=== PATIENT | female | born 1965 | race Caucasian/White ===

== ENCOUNTER → 2017-06-07 | Outpatient (CLI) | payer MEDICARE, MEDICAID, SELFPAY | PROVIDERS: Family Provider Nurse Practitioner Family; Visit Provider Nurse Practitioner Family | DX: N39.0 Urinary tract infection, site not specified (principal); R10.9 Unspecified abdominal pain; Z87.442 Personal history of urinary calculi | CPT/HCPCS: 74020 ==

== ENCOUNTER → 2017-09-18 13:04 | Outpatient (CLI) | payer MEDICARE, MEDICAID, SELFPAY ==
[2017-09-18 13:25] LABS: Basophils # 0.1 K/mm3 (0-0.2); Basophils % 1.3 % (0.1-2.0); Eosinophils # 0.2 K/mm3 (0.0-0.4); Eosinophils % 3.6 % (0.1-12.0); Hematocrit 37.9 % (37.0-47.0); Hemoglobin 12.5 g/dL (12.2-16.2); Lymphocytes # 2.4 K/mm3 (0.7-4.5); Lymphocytes % 38.1 K/mm3 (10-50); Mean Corpuscular Hemoglobin 30.4 pg (27.0-31.2); Mean Corpuscular Volume 92.3 fl (81-99); Mean Platelet Volume 7.9 fl (7.4-10.4); Monocytes # 0.4 K/mm3 (0.1-1.0); Monocytes % 5.9 % (1.7-9.3); Neutrophils # 3.2 K/mm3 (1.8-7.8); Neutrophils % 51.1 % (37.0-80.0); Platelet Count 245 K/mm3 (142-424); Red Cell Distribution Width 13.1 % (11.5-17.5); White Blood Count 6.2 K/mm3 (4.8-10.8)
[2017-09-18 13:35] LABS: Hemoglobin A1C 7.8 % (0.0-7.0)
[2017-09-18 13:37] LABS: Alanine Aminotransferase 38 U/L (12-78); Albumin Level 3.7 gm/dL (3.4-5.0); Albumin/Globulin Ratio 1.1 (1.1-1.8); Alkaline Phosphatase 122 U/L (46-116); Anion Gap 11.5 mEq/L (5-15); Aspartate Amino Transferase 32 U/L (15-37); Bilirubin,Total 0.2 mg/dL (0.2-1.0); Blood Urea Nitrogen 11 mg/dL (7-18); Calcium 9.6 mg/dL (8.5-10.1); Carbon Dioxide 29 mmol/L (21.0-32.0); Chloride 101 mmol/L (98-107); Creatinine,Serum 0.94 mg/dL (0.55-1.02); Estimated Glomerular Filt Rate 62 ml/min (>60); GFR (African American) 75 ML/MIN (>60); Globulin 3.4 gm/dl (1.3-3.2); Potassium 3.5 mmoL/L (3.5-5.1); Sodium 138 mmol/L (136-145); Total Protein,Serum 7.1 gm/dL (6.4-8.2)
[2017-09-18 13:40] LABS: Glucose 414 mg/dL (74-106)
[2017-09-18 15:33] LABS: Chol/HDL Ratio 7.1 (1-3.5); Cholesterol 164 mg/dL (140-200); Free T4 (Free Thyroxine) 1.16 ng/dl (0.76-1.46); HDL Cholesterol 23 mg/dL (29-89); LDL Cholesterol 79 mg/dL (0-130); Triglycerides 312 mg/dL (30-200); VLDL Cholesterol 62 mg/dL (0-40)
[2017-09-19 09:11] LABS: Vitamin D 25 Hydroxy 29.5 ng/mL (30.0-100.0)
[2017-09-20 06:39] LABS: Vitamin B12 684 pg/mL (232-1245)
== END ==
PROVIDERS: Nurse Practitioner Family; PCP Internal Medicine Adolescent Medicine; Visit Provider Internal Medicine Adolescent Medicine
DX: E11.9 Type 2 diabetes mellitus without complications (principal); E03.9 Hypothyroidism, unspecified; I10 Essential (primary) hypertension; R53.83 Other fatigue
CPT/HCPCS: 36415; 80053; 80061; 82607; 82652; 83036; 84439; 84443; 85025

== ENCOUNTER → 2017-10-18 11:43 | Outpatient (CLI) | payer MEDICARE, MEDICAID, SELFPAY ==
--- NOTE | 2017-10-18 11:47 | CA_ITS ---
PROCEDURE: 2-D M-mode and color Doppler study INDICATIONS FOR THE TEST: Chest pain+ COPD+ Heart Murmur+ Tobacco Smoking+ Palpitations+ Fatigue Syncope Edema+ Hypertension+Diabetes Mellitus+ Rheumatic Fever SOB+SZYMANSKI+Obesity Hyperlipidemia+ Family History HD+ Additional History dizziness PATIENT INFORMATION HEIGHT: 60 WEIGHT: 140 GENDER: Female B/P: 124/54 2-D/M-MODE INTERPRETATION: 2-D MEASUREMENTS OBSERVED VALUES IN CMS Right Ventricular Dimension (RVDd) 2.4 Interventricular Septum (Thickness)(IVsd) 0.9 Left Ventricular Internal Dimensions(LVIDd) 4.5 Left Ventricular Posterior Wall (Thickness)(LVPWd) 0.8 Aortic Root 2.6 Aortic Cusp Separation 2.0 Left Atrial Dimensions (LAD) 3.1 2D 1. Left atrium is mildly enlarged, left ventricle is normal size, mild concentric left ventricular hypertrophy, visually estimated ejection fraction 55% with no obvious regional wall motion abnormality. 2. The right atrium and right ventricle are normal size and contractility 3. The aortic valve is thickened and calcified leaflet continue to display mobility. 4. The mitral and tricuspid valve leaflets are minimally thickened. 5. The pulmonic valve is poorly visualized. 6. No significant pericardial effusion noted. DOPPLER INTERROGATION: Doppler interrogation of the aortic, mitral and tricuspid valvular presence of mild mitral and tricuspid regurgitation, tricuspid and jet velocity insufficient for calculation of the right ventricular systolic pressure, grade 1 diastolic dysfunction seen without tissue Doppler evidence of raised left atrial pressure. CONCLUSION: 1. Mildly enlarged left atrium, normal left ventricular size, mild concentric left ventricular hypertrophy, visually estimated ejection fraction 55% with no obvious regional wall motion abnormality, grade 1 diastolic dysfunction seen without tissue Doppler evidence of raised left atrial pressure. 2. Mild mitral and tricuspid regurgitation 3. No significant pericardial effusion noted.
--- NOTE | 2017-10-18 11:47 | NM_ITS ---
CARDIOLITE SPECT MYOCARDIAL PERFUSION SCAN, REST AND STRESS: EXERCISE STRESS [facility] REVIEW QGS EF AND WALL MOTION EVALUATION: QPS - PERFUSION EVALUATION HISTORY: CAD, DM, Tobacco use, Chest pain, SOB, Palpitations, Fatigue DOSE: 9.75 mCi technetium 99m mibi intravenously at rest followed by 30.3 mCi technetium 99m mibi following the intravenous ministration of 0.4 mg of Lexiscan. Resting blood pressure is 136/63. Stress blood pressure 149/77. FINDINGS: Ejection fraction is calculated to be 65%. Stress images reveal decreased activity in a portion the anterior wall wall rest images uniform myocardial activity. Gated images calculated ejection fraction is 65% with normal wall motion IMPRESSION: Reversible ischemia in a portion the anterior wall. Normal ejection fraction and normal wall motion. Because the anterior wall involvement this is high risk abnormal Myoview
--- NOTE | 2017-10-18 14:36 | HMH.ITSHM ---
metoprolol levothyroxine fenotidine buspirone adapalene bisacodyl
== END ==
PROVIDERS: Family Provider Nurse Practitioner Family; PCP Internal Medicine Adolescent Medicine; Visit Provider Internal Medicine
DX: R06.09 Other forms of dyspnea (principal); R00.2 Palpitations
CPT/HCPCS: 78452; 93017; 93306; A9502; J2785

== ENCOUNTER 2017-11-25 19:23 | Observation (INO) ==
[2017-11-25 19:49] LABS: Basophils # 0.1 K/mm3 (0-0.2); Basophils % 1.2 % (0.1-2.0); Eosinophils # 0.5 K/mm3 (0.0-0.4); Hematocrit 44.5 % (37.0-47.0); Hemoglobin 14.9 g/dL (12.2-16.2); Lymphocytes # 3.7 K/mm3 (0.7-4.5); Mean Corpuscular HGB Conc 33.4 g/dL (31.8-35.4); Mean Corpuscular Hemoglobin 29.6 pg (27.0-31.2); Mean Corpuscular Volume 88.7 fl (81-99); Mean Platelet Volume 7.2 fl (7.4-10.4); Monocytes # 0.4 K/mm3 (0.1-1.0); Monocytes % 4.2 % (1.7-9.3); Neutrophils # 4.4 K/mm3 (1.8-7.8); Neutrophils % 48.6 % (37.0-80.0); Platelet Count 327 K/mm3 (142-424); Red Blood Count 5.02 M/mm3 (4.20-5.40); Red Cell Distribution Width 12.7 % (11.5-17.5); White Blood Count 9.1 K/mm3 (4.8-10.8)
[2017-11-25 20:01] LABS: Anion Gap 20.5 mEq/L (5-15); Blood Urea Nitrogen 29 mg/dL (7-18); Calcium 10.5 mg/dL (8.5-10.1); Carbon Dioxide 25 mmol/L (21.0-32.0); Chloride 94 mmol/L (98-107); Glucose 152 mg/dL (74-106); Potassium 3.5 mmoL/L (3.5-5.1); Sodium 136 mmol/L (136-145)
--- NOTE | 2017-11-25 20:56 | Emergency Department Note ---
ED Disposition Clinical Impression: Angina at rest, Renal insufficiency Disposition: Admitted as Observation Condition on Discharge: Good - Critical Care Critical Care Time: No Attestation: On 11/25/17, the high probability of a clinically significant, sudden or life threatening deterioration of the following system(s) required my full and direct attention, intervention and personal management. The time I documented below is in addition to time spent performing reported procedures but includes the following listed in this critical care notation. Medical Decision Making - Medical Records Medical records reviewed: Yes: I reviewed the patient's medical records. - Rob Inquiry Pt receiving controlled substance: No Vital Signs: 11/25/17 19:24 Temperature 98.0 F Temperature Source Oral Pulse Rate [Right Radial] 86 Respiratory Rate 20 Blood Pressure [Right Arm] 167/75 Blood Pressure Mean [Right Arm] 105 02 Sat by Pulse Oximetry 98 - Lab Data Lab results reviewed: Yes: I reviewed the patient's lab results. Lab Results 11/25/17 19:37: WBC 9.1, RBC 5.02, Hgb 14.9, Hct 44.5, MCV 88.7, MCH 29.6, MCHC 33.4, RDW 12.7, Plt Count 327, MPV 7.2 L, Neut % (Auto) 48.6, Lymph % (Auto) 41.0, [place] % (Auto) 4.2, Eos % (Auto) 5.0, Baso % (Auto) 1.2, Neut # (Auto) 4.4 , Lymph # (Auto) 3.7, [place] # (Auto) 0.4, Eos # (Auto) 0.5 H, Baso # (Auto) 0.1 11/25/17 19:37: Sodium 136, Potassium 3.5, Chloride 94 L, Carbon Dioxide 25, Anion Gap 20.5 H, BUN 29 H, Creatinine 2.25 H, Estimated Creat Clear 29, Estimated GFR 23 L, Est GFR ( Amer) 28 L, Glucose 152 H, Calcium 10.5 H, Troponin I < 0.02 Result diagrams: 11/25/17 19:37 11/25/17 19:37 Orders (Tests/Meds): ORDERS Category Date Time Status XR chest 2V Stat Exams 11/25/17 19:35 Taken ECG Request by /Nse Stat Y 11/25/17 19:35 Ordered - Radiology Data #1 Image(s): Chest Image Reviewed: Yes I reviewed the patient's radiology image Preliminary Findings: Normal/NAD - ECG Data Tracing #1 I reviewed this ECG and interpreted as documented below: Normal Sinus Rhythm: Yes Ischemic changes: non-specific ST-T wave changes ECG compared to prior tracings: there are no significant changes - Physician Consults Physician Consulted: gilberto Reason -: Pt condition Chest Pain HPI - General Chief Complaint: Chest Pain Stated Complaint: chest pain Time Seen by Provider: 11/25/17 20:00 Mode of Arrival: Family Vehicle Source of Information: Patient, Relative, Medical Record Limitations: No Limitations Description of Symptoms (Recalled from ER Triage Doc. by RN): pt presents with c /o chest pain. pt states the pain begins upon exertion. pt states she had stents on 11/13/[address] macias. pt states she she has been having nausea/ weakness/diaphoresis. pt has a neurotransmitter in her back that helps with incontinence. - History of Present Illness HPI narrative: pt with hx of chest pain over the last 2 days - pt with recent card stents - no pain at this time - MD complaint: chest pain indicative of cardiac Onset (ago): day(s) Duration: now resolved Activity at onset: during rest Pain location: substernal Severity: moderate Quality: tightness Context: other (recent stents ) Treatments prior to or on arrival for Cardiac Chest Pain: aspirin - NEERAJ Score Non-Stemi Age of patient: Less than 65 yrs Number of risk factors for CAD: Presence of 3 or more Prior coronary artery stenosis(seen in coronary angiography): 50% or more ST-Segment deviation on ECG (more than 1 min): Absent Prior aspirin intake: ASA intake in the last 7 days Severe anginal chest pain: Two or more episodes in last 24 hours Elevated cardiac markers(CK-MB or troponin): Absent Non-Stemi Risk Score: 4 - Related Data Prior Cardiac Testing/Procedures: Stenting On Oral Contraceptives: No Home Medications Medication Instructions Recorded Confirmed adapalene 0.1 % topical gel 1 applic TOPICAL QHS 10/16/17 11/25/17 albuterol sulfate HFA 90 2 puff INHALATION Q4-6H PRN 10/16/17 11/25/17 mcg/actuation aerosol inhaler alprazolam 1 mg tablet 1 mg PO TID PRN tab 10/16/17 11/25/17 bisacodyl 5 mg tablet 10 mg PO QHS PRN 10/16/17 11/25/17 diltiazem CD 120 mg 120 mg PO DAILY cap 10/16/17 11/25/17 capsule,extended release 24 hr esomeprazole magnesium 20 mg 20 mg PO DAILY cap 10/16/17 11/25/17 capsule,delayed release famotidine 20 mg tablet 20 mg PO BID PRN 10/16/17 11/25/17 fenofibrate micronized 134 mg 134 mg PO DAILY cap 10/16/17 11/25/17 capsule fluticasone 100 mcg-salmeterol 50 1 puff INHALATION BID 10/16/17 11/25/17 mcg/dose blistr powdr for inhalation lamotrigine 100 mg tablet 100 mg PO BID 10/16/17 11/25/17 levothyroxine 125 mcg tablet 125 mcg PO DAILY tab 10/16/17 11/25/17 metformin 1,000 mg tablet 1,000 mg PO BID 10/16/17 11/25/17 nystatin 100,000 unit/gram topical 1 applic TOPICAL TID 10/16/17 11/25/17 ointment ondansetron HCl 4 mg tablet 4 mg PO Q6H PRN 10/16/17 11/25/17 potassium chloride ER 20 mEq 20 meq PO DAILY tab 10/16/17 11/25/17 tablet,extended release rosuvastatin 10 mg tablet 10 mg PO QHS tab 10/16/17 11/25/17 venlafaxine ER 150 mg 300 mg PO DAILY cap 10/16/17 11/25/17 capsule,extended release 24 hr buspirone 10 mg tablet 10 mg PO BID 10/17/17 11/25/17 cholecalciferol (vitamin D3) 2,000 2,000 unit PO DAILY cap 10/17/17 11/25/17 unit capsule cyanocobalamin (vit B-12) ER 1,000 1,000 mcg PO DAILY tab 10/17/17 11/25/17 mcg tablet,extended release aspirin 81 mg tablet,delayed 81 mg PO DAILY tab 11/21/17 11/25/17 release furosemide 20 mg tablet 20 mg PO DAILY tab 11/21/17 11/25/17 ticagrelor 90 mg tablet 90 mg PO BID 11/21/17 11/25/17 Bisoprolol Fumarate [Zebeta 5mg 5 mg PO DAILY 11/25/17 11/25/17 tablet] Furosemide [Lasix 20mg tab] 20 mg PO DAILY 11/25/17 11/25/17 Ranolazine [Ranexa 500mg ER tablet] 500 mg PO Q12H 11/25/17 11/25/17 Ticagrelor [Brilinta 90mg Tablet] 90 mg PO DAILY 11/25/17 11/25/17 Allergies Allergy/AdvReac Type Severity Reaction Status Date / Time aripiprazole [From ABILIFY] Allergy Unknown Verified 11/25/17 19:31 citalopram [From CELEXA] Allergy Unknown UNKNOWN Verified 11/25/17 19:31 hydrocodone [From LORTAB] Allergy Unknown Verified 11/25/17 19:31 olanzapine [From ZYPREXA] Allergy Unknown Verified 11/25/17 19:31 quetiapine [From SEROQUEL] Allergy Unknown Verified 11/25/17 19:31 Sulfa (Sulfonamide Allergy Unknown Verified 11/25/17 19:31 Antibiotics) [SULFA (SULFONAMIDE ANTIBIOTICS)] [facility] History I have reviewed the patient's past medical history: Yes Medical History: Reports:: Chronic Obstructive Pulmonary Disease (COPD), Depression, Diabetes Mellitus Type 2, Kidney Stones, Palpitations, Renal Disease Denies:: Cancer, Internal Pacemaker, MRSA, Seizures Other Medical History: Reports: Hypothyroidism Other Surgeries: Yes: Colonoscopy. No: Pacemaker Amputation: No Fractures: No - Social History Smoking Status: Current every day smoker Tobacco Type: cigarettes Alcohol Intake: never Alcohol Intake Frequency:: other Substance Use Type: denies use Occupational Status: employed Housing: apartment Household Members: none - Psychiatric History Expresses thoughts of harming self/others: None Suicide Plan Description: No Plan Pschychiatric History:: Reports:: Depression Family Hx:: Coronary Artery Disease, Heart Attack ROS Obtained: Yes All systems reviewed & no additional complaints - Constitutional Constitutional: Denies fever(s) - Eyes Eyes: Denies change in vision - ENT Ears, Nose, Mouth, and Throat: Denies sore throat - Cardiovascular Cardiovascular: Reports chest pain - Respiratory Respiratory: No chest congestion, No cough - Gastrointestinal Gastrointestingal: Denies: abdominal pain - Genitourinary Female Genitourinary: Denies hematuria - Musculoskeletal Musculoskeletal: Denies joint pain - Integumentary/Breasts Skin/Breast: Denies rash - Neurologic Neurologic: Denies seizure-like activity Physical Exam - General General appearance: alert - Head Head exam: normocephalic - Eye Eye exam: Present: PERRL, EOMI - ENT ENT exam: Present: mucous membranes dry - Neck Neck exam: Present: trachea midline - Respiratory Respiratory exam: Present: normal lung sounds bilaterally. Absent: respiratory distress - Cardiovascular Cardiovascular exam: Present: regular rate, systolic murmur - Abdominal Exam Abdominal exam: Present: soft - Extremities Exam Extremities exam: Absent: calf tenderness - Neurological Exam Neurological exam: Present: oriented X3, CN II-XII intact - Psychiatric Psychiatric exam: Present: normal affect - Skin Skin exam: Absent: rash
[2017-11-26 06:42] LABS: Basophils # 0.1 K/mm3 (0-0.2); Eosinophils # 0.4 K/mm3 (0.0-0.4); Lymphocytes # 3.3 K/mm3 (0.7-4.5)
[2017-11-26 06:54] LABS: Basophils % 1.3 % (0.1-2.0); Eosinophils % 5.5 % (0.1-12.0); Hematocrit 39.2 % (37.0-47.0); Lymphocytes % 51.5 K/mm3 (10-50); Mean Corpuscular Hemoglobin 29.5 pg (27.0-31.2); Mean Corpuscular Volume 89.1 fl (81-99); Mean Platelet Volume 7.2 fl (7.4-10.4); Monocytes # 0.3 K/mm3 (0.1-1.0); Monocytes % 4.9 % (1.7-9.3); Neutrophils # 2.3 K/mm3 (1.8-7.8); Neutrophils % 36.9 % (37.0-80.0); Platelet Count 250 K/mm3 (142-424); Red Cell Distribution Width 12.8 % (11.5-17.5); White Blood Count 6.4 K/mm3 (4.8-10.8)
[2017-11-26 07:12] LABS: Anion Gap 14.2 mEq/L (5-15); Potassium 3.2 mmoL/L (3.5-5.1)
--- NOTE | 2017-11-26 07:35 | Pharmacy Consult Notes ---
[facility] Pharmacy VTE Monitoring - Patient Demographics Admission date: 11/25/17 Report Date: 11/26/17 Time: 07:34 Allergies/Adverse Reactions: Patient Allergies aripiprazole [From ABILIFY] Allergy (Unknown, Verified 11/25/17 19:31) citalopram [From CELEXA] Allergy (Unknown, Verified 11/25/17 19:31) UNKNOWN hydrocodone [From LORTAB] Allergy (Unknown, Verified 11/25/17 19:31) olanzapine [From ZYPREXA] Allergy (Unknown, Verified 11/25/17 19:31) quetiapine [From SEROQUEL] Allergy (Unknown, Verified 11/25/17 19:31) Sulfa (Sulfonamide Antibiotics) [SULFA (SULFONAMIDE ANTIBIOTICS)] Allergy ( Unknown, Verified 11/25/17 19:31) Height: 1.52 m Weight: 63.503 kg Patient Problems: Current Active Problems Angina at rest (Acute) Renal insufficiency (Acute) - VTE Risk Labs: VTE Related Lab Results Hgb 13.0 g/dL (12.2-16.2) D 11/26/17 06:22 Hct 39.2 % (37.0-47.0) 11/26/17 06:22 Plt Count 250 K/mm3 (142-424) 11/26/17 06:22 BUN 32 mg/dL (7-18) H 11/26/17 06:22 Creatinine 1.93 mg/dL (0.55-1.02) H 11/26/17 06:22 Estimated Creat Clear 34 mL/min (0-300) 11/26/17 06:22 Was VTE Risk Assessment Performed: Yes VTE Score: 3 VTE Risk Level: Low Risk - Prophylaxis VTE Prophylaxis Ordered?: Yes Types of VTE Prophylaxis: TEDS Knee High, Pharmacological Location of Applied Device: Bilateral Lower Extremeties Pharmacologic Type: Other (BRILINTA) - VTE Diagnosis Confirmed Treatment or plan recommended: Continue Current Treatment
[2017-11-26 07:39] LABS: Eosinophils % 4 % (0-3); Lymphocytes % 43 % (10-50); Monocytes % 7 % (2-9); Neutrophils % 39 % (42-76); RBC Morphology Normal; Total Cells Counted 100
--- NOTE | 2017-11-26 08:14 | Consult Report ---
History of Present Illness Consult date: 11/26/17 Requesting physician: Avelino Salas Consult reason: chest pain Chief complaint: Chest pain, weakness and fatigue Additional Medical History:: 1. Coronary artery disease A. High risk abnormal Myoview with anterior ischemia, 10/2017 B. Drug-eluting stent to LAD, proximal and mid in a noncontiguous fashion, 11/13/2017 with residual moderate RCA disease. 2. Diabetes mellitus, treated for 2 years 3. Tobacco use, continued 4. Hypertension 5. Hyperlipidemia, on statin and fibrate 6. History of colostomy placed for diverticulitis History of present illness: 52-year-old white female with tobacco use, diabetes mellitus and recent coronary artery stenting to the LAD presented to the emergency department for recurrent episodes of chest pain lasting up to an hour and a half. Patient relates these symptoms are the same as those prior to her recent stenting and are present both at rest and with activity. Also associated with weakness and fatigue with some nausea and diaphoresis. Patient was admitted through the emergency department with cardiac enzymes returning normal overnight. EKG shows sinus rhythm with diffuse ST-T abnormalities in the inferior and anterolateral leads suggestive of ischemia. Cardiology consulted for evaluation and recommendations. [facility] History Medical History: Reports:: Chronic Obstructive Pulmonary Disease (COPD), Depression, Diabetes Mellitus Type 2, Kidney Stones, Palpitations, Renal Disease Denies:: Cancer, Internal Pacemaker, MRSA, Seizures Other Medical History: Reports: Hypothyroidism Other Surgeries: Yes: Colonoscopy. No: Pacemaker Amputation: No Fractures: No - *Social History Smoking Status: Current every day smoker Tobacco Type: cigarettes # Packs/Day (cigarettes): 1 Alcohol Intake: never Alcohol Intake Frequency:: other Substance Use Type: denies use Occupational Status: employed Housing: apartment Household Members: none - Psychiatric History Expresses thoughts of harming self/others: None Suicide Plan Description: No Plan Pschychiatric History:: Reports:: Depression *Family Hx:: Coronary Artery Disease, Heart Attack Meds Home Medications Medication Instructions Recorded Confirmed Type albuterol sulfate HFA 90 2 puff INHALATION Q4-6H PRN 10/16/17 11/25/17 History mcg/actuation aerosol inhaler alprazolam 1 mg tablet 1 mg PO TIDP PRN tab 10/16/17 11/26/17 History diltiazem CD 120 mg 120 mg PO DAILY cap 10/16/17 11/25/17 History capsule,extended release 24 hr esomeprazole magnesium 20 mg 20 mg PO DAILY cap 10/16/17 11/25/17 History capsule,delayed release famotidine 20 mg tablet 20 mg PO BID PRN 10/16/17 11/25/17 History fenofibrate micronized 134 mg 134 mg PO DAILY cap 10/16/17 11/25/17 History capsule fluticasone 100 mcg-salmeterol 50 1 puff INHALATION BID 10/16/17 11/25/17 History mcg/dose blistr powdr for inhalation lamotrigine 100 mg tablet 100 mg PO BID 10/16/17 11/25/17 History levothyroxine 125 mcg tablet 125 mcg PO DAILY tab 10/16/17 11/25/17 History metformin 1,000 mg tablet 1,000 mg PO BID 10/16/17 11/25/17 History ondansetron HCl 4 mg tablet 4 mg PO Q6H PRN 10/16/17 11/25/17 History potassium chloride ER 20 mEq 20 meq PO DAILY tab 10/16/17 11/25/17 History tablet,extended release rosuvastatin 10 mg tablet 10 mg PO QHS tab 10/16/17 11/25/17 History venlafaxine ER 150 mg 300 mg PO DAILY cap 10/16/17 11/25/17 History capsule,extended release 24 hr buspirone 10 mg tablet 10 mg PO BID 10/17/17 11/25/17 History cholecalciferol (vitamin D3) 2,000 2,000 unit PO DAILY cap 10/17/17 11/25/17 History unit capsule cyanocobalamin (vit B-12) ER 1,000 1,000 mcg PO DAILY tab 10/17/17 11/25/17 History mcg tablet,extended release aspirin 81 mg tablet,delayed 81 mg PO DAILY tab 11/21/17 11/25/17 History release ticagrelor 90 mg tablet 90 mg PO BID 11/21/17 11/25/17 History Bisoprolol Fumarate [Zebeta 5mg 5 mg PO DAILY 11/25/17 11/25/17 History tablet] Furosemide [Lasix 20mg tab] 20 mg PO DAILY 11/25/17 11/25/17 History Ranolazine [Ranexa 500mg ER tablet] 500 mg PO Q12H 11/25/17 11/25/17 History Ticagrelor [Brilinta 90mg Tablet] 90 mg PO DAILY 11/25/17 11/25/17 History Allergies Allergy/AdvReac Type Severity Reaction Status Date / Time aripiprazole [From ABILIFY] Allergy Unknown Verified 11/25/17 19:31 citalopram [From CELEXA] Allergy Unknown UNKNOWN Verified 11/25/17 19:31 hydrocodone [From LORTAB] Allergy Unknown Verified 11/25/17 19:31 olanzapine [From ZYPREXA] Allergy Unknown Verified 11/25/17 19:31 quetiapine [From SEROQUEL] Allergy Unknown Verified 11/25/17 19:31 Sulfa (Sulfonamide Allergy Unknown Verified 11/25/17 19:31 Antibiotics) [SULFA (SULFONAMIDE ANTIBIOTICS)] Review of Systems - *Cardiovascular Reports chest pain - *Respiratory Reports shortness of breath with activity - *Gastrointestinal Reports constipation, Denies abdominal pain - *Musculoskeletal Denies joint pain - *Neurologic Denies seizure-like activity Exam Vital signs and Labs for Last 24 Hours: Temp Pulse Resp BP Pulse Ox 98.1 F 74 20 113/68 95 11/26/17 07:30 11/26/17 07:30 11/26/17 07:30 11/26/17 07:30 11/26/17 07:30 Laboratory Results - last 24 hr 11/25/17 19:37: WBC 9.1, RBC 5.02, Hgb 14.9, Hct 44.5, MCV 88.7, MCH 29.6, MCHC 33.4, RDW 12.7, Plt Count 327, MPV 7.2 L, Neut % (Auto) 48.6, Lymph % (Auto) 41.0, [place] % (Auto) 4.2, Eos % (Auto) 5.0, Baso % (Auto) 1.2, Neut # (Auto) 4.4 , Lymph # (Auto) 3.7, [place] # (Auto) 0.4, Eos # (Auto) 0.5 H, Baso # (Auto) 0.1 11/25/17 19:37: Sodium 136, Potassium 3.5, Chloride 94 L, Carbon Dioxide 25, Anion Gap 20.5 H, BUN 29 H, Creatinine 2.25 H, Estimated Creat Clear 29, Estimated GFR 23 L, Est GFR ( Amer) 28 L, Glucose 152 H, Calcium 10.5 H, Troponin I < 0.02 11/25/17 21:39: Troponin I < 0.02 11/26/17 00:35: Troponin I < 0.02 11/26/17 03:35: Troponin I < 0.02 11/26/17 04:06: POC Glucose 192 H 11/26/17 05:12: POC Glucose 182 H 11/26/17 06:22: WBC 6.4 D, RBC 4.40, Hgb 13.0 D, Hct 39.2, MCV 89.1, MCH 29.5 , MCHC 33.0, RDW 12.8, Plt Count 250, MPV 7.2 L, Neut % (Auto) 36.9 L, Lymph % ( Auto) 51.5 H, [place] % (Auto) 4.9, Eos % (Auto) 5.5, Baso % (Auto) 1.3, Neut # ( Auto) 2.3, Lymph # (Auto) 3.3, [place] # (Auto) 0.3, Eos # (Auto) 0.4, Baso # (Auto ) 0.1, Total Counted 100, Neutrophils % (Manual) 39 L, Lymphocytes % (Manual) 43 , Atypical Lymphs % 7.0, Monocytes % (Manual) 7, Eosinophils % (Manual) 4 H, Platelet Estimate Normal, RBC Morphology Normal 11/26/17 06:22: Sodium 139, Potassium 3.2 L, Chloride 100, Carbon Dioxide 28, Anion Gap 14.2, BUN 32 H, Creatinine 1.93 H, Estimated Creat Clear 34, Estimated GFR 27 L, Est GFR ( Amer) 33 L, Glucose 181 H, Calcium 9.0 D I & O for Last 24 hours: Intake & Output 11/23/17 11/24/17 11/25/17 11/26/17 11:59 11:59 11:59 11:59 Intake Total 434 / 434 Balance 434 / 434 Weight 140 lb - *Routine Neck Exam Absent: JVD, carotid bruit - *Routine Respiratory Exam Present: CTA bilaterally - *Routine Cardiovascular Exam Present: RRR. Absent: murmur, gallop - *Routine Extremities Exam Absent: edema - *Routine Neurological Exam Present: alert, oriented X3, moving all extremities Assessment and Plan (1) Angina at rest Current visit: Yes Status: Acute Category: Medical Code(s): I20.8 - Other forms of angina pectoris (2) CAD (coronary artery disease) Current visit: Yes Status: Acute Category: Medical Code(s): I25.10 - Atherosclerotic heart disease of [place] coronary artery without angina pectoris (3) History of coronary artery stent placement Current visit: Yes Status: Acute Category: Surgical Code(s): Z95.5 - Presence of coronary angioplasty implant and graft (4) Hypertension Current visit: Yes Status: Acute Category: Medical Code(s): I10 - Essential (primary) hypertension (5) Diabetes mellitus Current visit: Yes Status: Acute Category: Medical Code(s): E11.9 - Type 2 diabetes mellitus without complications (6) Hypercholesteremia Current visit: No Status: Acute Category: Medical Code(s): E78.00 - Pure hypercholesterolemia, unspecified (7) Hypothyroidism Current visit: No Status: Acute Qualifiers: Hypothyroidism type: unspecified Qualified Code(s): E03.9 - Hypothyroidism , unspecified Category: Medical Code(s): E03.9 - Hypothyroidism, unspecified (8) Tobacco dependence syndrome Current visit: No Status: Acute Category: Medical Code(s): F17.200 - Nicotine dependence, unspecified, uncomplicated (9) Renal insufficiency Current visit: Yes Status: Acute Category: Medical Code(s): N28.9 - Disorder of kidney and ureter, unspecified - Assessment and plan all Dx Assessment and Plan for all problems:: 1. Angina pectoris class IV in a patient with known coronary artery disease and recent coronary artery stenting. She confirmed compliance of dual antiplatelet therapy. With known residual coronary disease of the right coronary artery, recommend repeating cardiac catheterization today with FFR to assess as the etiology for her continued chest pain. Also will re-evaluate the LAD stents. 2. Continue IV fluids due to acute renal insufficiency with creatinine of 1.9 this a.m. (Cr down from 2.2 yesterday) and GFR of 27. 3. Further recommendations to follow.
--- NOTE | 2017-11-26 08:29 | History & Physical Report ---
*Admission Date: 11/25/17 *Chief complaint: chest pain *History of present illness: 52-year-old white female with tobacco use, diabetes mellitus and recent coronary artery stenting to the LAD presented to the emergency department for recurrent episodes of chest pain lasting up to an hour and a half. Patient relates these symptoms are the same as those prior to her recent stenting and are present both at rest and with activity. Also associated with weakness and fatigue with some nausea and diaphoresis. Patient was admitted through the emergency department with cardiac enzymes returning normal overnight. EKG shows sinus rhythm with diffuse ST-T abnormalities in the inferior and anterolateral leads suggestive of ischemia. Cardiology consulted for evaluation and recommendations. Above per Cardiology FELICIT[facility] [place]. [facility] History I have reviewed the patient's past medical history: Yes Medical History: Reports:: Chronic Obstructive Pulmonary Disease (COPD), Depression, Diabetes Mellitus Type 2, Kidney Stones, Palpitations, Renal Disease Denies:: Cancer, Internal Pacemaker, MRSA, Seizures Other Medical History: Reports: Hypothyroidism Other Surgeries: Yes: Colonoscopy. No: Pacemaker Amputation: No Fractures: No - *Social History Smoking Status: Current every day smoker Tobacco Type: cigarettes # Packs/Day (cigarettes): 1 Alcohol Intake: never Alcohol Intake Frequency:: other Substance Use Type: denies use Occupational Status: employed Housing: apartment Household Members: none - Psychiatric History Expresses thoughts of harming self/others: None Suicide Plan Description: No Plan Pschychiatric History:: Reports:: Depression *Family Hx:: Coronary Artery Disease, Heart Attack Review of Systems - Review of Systems Review of systems:: pertinent systems reviewed and negative unless documented below - *Cardiovascular Reports chest pain, Reports shortness of breath - *Gastrointestinal Reports nausea, Reports vomiting - *Neurologic Denies seizure-like activity Meds Home Medications Medication Instructions Recorded Confirmed Type albuterol sulfate HFA 90 2 puff INHALATION Q4-6H PRN 10/16/17 11/25/17 History mcg/actuation aerosol inhaler alprazolam 1 mg tablet 1 mg PO TIDP PRN tab 10/16/17 11/26/17 History diltiazem CD 120 mg 120 mg PO DAILY cap 10/16/17 11/25/17 History capsule,extended release 24 hr esomeprazole magnesium 20 mg 20 mg PO DAILY cap 10/16/17 11/25/17 History capsule,delayed release famotidine 20 mg tablet 20 mg PO BID PRN 10/16/17 11/25/17 History fenofibrate micronized 134 mg 134 mg PO DAILY cap 10/16/17 11/25/17 History capsule fluticasone 100 mcg-salmeterol 50 1 puff INHALATION BID 10/16/17 11/25/17 History mcg/dose blistr powdr for inhalation lamotrigine 100 mg tablet 100 mg PO BID 10/16/17 11/25/17 History levothyroxine 125 mcg tablet 125 mcg PO DAILY tab 10/16/17 11/25/17 History metformin 1,000 mg tablet 1,000 mg PO BID 10/16/17 11/25/17 History ondansetron HCl 4 mg tablet 4 mg PO Q6H PRN 10/16/17 11/25/17 History potassium chloride ER 20 mEq 20 meq PO DAILY tab 10/16/17 11/25/17 History tablet,extended release rosuvastatin 10 mg tablet 10 mg PO QHS tab 10/16/17 11/25/17 History venlafaxine ER 150 mg 300 mg PO DAILY cap 10/16/17 11/25/17 History capsule,extended release 24 hr buspirone 10 mg tablet 10 mg PO BID 10/17/17 11/25/17 History cholecalciferol (vitamin D3) 2,000 2,000 unit PO DAILY cap 10/17/17 11/25/17 History unit capsule cyanocobalamin (vit B-12) ER 1,000 1,000 mcg PO DAILY tab 10/17/17 11/25/17 History mcg tablet,extended release aspirin 81 mg tablet,delayed 81 mg PO DAILY tab 11/21/17 11/25/17 History release ticagrelor 90 mg tablet 90 mg PO BID 11/21/17 11/25/17 History Bisoprolol Fumarate [Zebeta 5mg 5 mg PO DAILY 11/25/17 11/25/17 History tablet] Furosemide [Lasix 20mg tab] 20 mg PO DAILY 11/25/17 11/25/17 History Ranolazine [Ranexa 500mg ER tablet] 500 mg PO Q12H 11/25/17 11/25/17 History Ticagrelor [Brilinta 90mg Tablet] 90 mg PO DAILY 11/25/17 11/25/17 History Allergies Allergy/AdvReac Type Severity Reaction Status Date / Time aripiprazole [From ABILIFY] Allergy Unknown Verified 11/25/17 19:31 citalopram [From CELEXA] Allergy Unknown UNKNOWN Verified 11/25/17 19:31 hydrocodone [From LORTAB] Allergy Unknown Verified 11/25/17 19:31 olanzapine [From ZYPREXA] Allergy Unknown Verified 11/25/17 19:31 quetiapine [From SEROQUEL] Allergy Unknown Verified 11/25/17 19:31 Sulfa (Sulfonamide Allergy Unknown Verified 11/25/17 19:31 Antibiotics) [SULFA (SULFONAMIDE ANTIBIOTICS)] Exam Vital signs and Labs for Last 24 Hours: Temp Pulse Resp BP Pulse Ox 98.1 F 74 20 113/68 95 11/26/17 07:30 11/26/17 07:30 11/26/17 07:30 11/26/17 07:30 11/26/17 07:30 Laboratory Results - last 24 hr 11/25/17 19:37: WBC 9.1, RBC 5.02, Hgb 14.9, Hct 44.5, MCV 88.7, MCH 29.6, MCHC 33.4, RDW 12.7, Plt Count 327, MPV 7.2 L, Neut % (Auto) 48.6, Lymph % (Auto) 41.0, [place] % (Auto) 4.2, Eos % (Auto) 5.0, Baso % (Auto) 1.2, Neut # (Auto) 4.4 , Lymph # (Auto) 3.7, [place] # (Auto) 0.4, Eos # (Auto) 0.5 H, Baso # (Auto) 0.1 11/25/17 19:37: Sodium 136, Potassium 3.5, Chloride 94 L, Carbon Dioxide 25, Anion Gap 20.5 H, BUN 29 H, Creatinine 2.25 H, Estimated Creat Clear 29, Estimated GFR 23 L, Est GFR ( Amer) 28 L, Glucose 152 H, Calcium 10.5 H, Troponin I < 0.02 11/25/17 21:39: Troponin I < 0.02 11/26/17 00:35: Troponin I < 0.02 11/26/17 03:35: Troponin I < 0.02 11/26/17 04:06: POC Glucose 192 H 11/26/17 05:12: POC Glucose 182 H 11/26/17 06:22: WBC 6.4 D, RBC 4.40, Hgb 13.0 D, Hct 39.2, MCV 89.1, MCH 29.5 , MCHC 33.0, RDW 12.8, Plt Count 250, MPV 7.2 L, Neut % (Auto) 36.9 L, Lymph % ( Auto) 51.5 H, [place] % (Auto) 4.9, Eos % (Auto) 5.5, Baso % (Auto) 1.3, Neut # ( Auto) 2.3, Lymph # (Auto) 3.3, [place] # (Auto) 0.3, Eos # (Auto) 0.4, Baso # (Auto ) 0.1, Total Counted 100, Neutrophils % (Manual) 39 L, Lymphocytes % (Manual) 43 , Atypical Lymphs % 7.0, Monocytes % (Manual) 7, Eosinophils % (Manual) 4 H, Platelet Estimate Normal, RBC Morphology Normal 11/26/17 06:22: Sodium 139, Potassium 3.2 L, Chloride 100, Carbon Dioxide 28, Anion Gap 14.2, BUN 32 H, Creatinine 1.93 H, Estimated Creat Clear 34, Estimated GFR 27 L, Est GFR ( Amer) 33 L, Glucose 181 H, Calcium 9.0 D I & O for Last 24 hours: Intake & Output 11/23/17 11/24/17 11/25/17 11/26/17 11:59 11:59 11:59 11:59 Intake Total 434 / 434 Balance 434 / 434 Weight 140 lb Narrative: Alert and oriented x3. Rate and rhythm regular. No LE edema. Lung sounds diminished bilateral bases. Abdomen soft and nontender with colostomy in place. Skin pink, warm and dry. No rashes. Neuro assessment unremarkable H&P: Result - Labs Labs: Short CBC 11/25/17 11/26/17 Range/Units 19:37 06:22 WBC 9.1 6.4 D (4.8-10.8) K/mm3 Hgb 14.9 13.0 D (12.2-16.2) g/dL Hct 44.5 39.2 (37.0-47.0) % Plt Count 327 250 (142-424) K/mm3 [facility] 11/25/17 11/26/17 19:37 06:22 Sodium 136 139 Potassium 3.5 3.2 L Chloride 94 L 100 Carbon Dioxide 25 28 BUN 29 H 32 H Creatinine 2.25 H 1.93 H Glucose 152 H 181 H Calcium 10.5 H 9.0 D Cardiac Enzymes 11/25/17 11/25/17 11/26/17 Range/Units 19:37 21:39 00:35 Troponin I < 0.02 < 0.02 < 0.02 (0.00-0.06) ng/ml 11/26/17 Range/Units 03:35 Troponin I < 0.02 (0.00-0.06) ng/ml Assessment and Plan (1) Angina at rest Current visit: Yes Status: Acute Category: Medical Code(s): I20.8 - Other forms of angina pectoris (2) CAD (coronary artery disease) Current visit: Yes Status: Acute Category: Medical Code(s): I25.10 - Atherosclerotic heart disease of [place] coronary artery without angina pectoris (3) History of coronary artery stent placement Current visit: Yes Status: Acute Category: Surgical Code(s): Z95.5 - Presence of coronary angioplasty implant and graft (4) Hypertension Current visit: Yes Status: Acute Category: Medical Code(s): I10 - Essential (primary) hypertension (5) Diabetes mellitus Current visit: Yes Status: Acute Category: Medical Code(s): E11.9 - Type 2 diabetes mellitus without complications (6) Hypercholesteremia Current visit: No Status: Acute Category: Medical Code(s): E78.00 - Pure hypercholesterolemia, unspecified (7) Hypothyroidism Current visit: No Status: Acute Qualifiers: Hypothyroidism type: unspecified Qualified Code(s): E03.9 - Hypothyroidism , unspecified Category: Medical Code(s): E03.9 - Hypothyroidism, unspecified (8) Tobacco dependence syndrome Current visit: No Status: Acute Category: Medical Code(s): F17.200 - Nicotine dependence, unspecified, uncomplicated (9) Renal insufficiency Current visit: Yes Status: Acute Category: Medical Code(s): N28.9 - Disorder of kidney and ureter, unspecified - Assessment and plan all Dx Assessment and Plan for all problems:: Plan for [facility] later today.
--- NOTE | 2017-11-26 16:40 | Discharge Summary ---
General - General Admission date:: 11/25/17 Discharge date: 11/26/17 HPI HPI: 52-year-old white female with tobacco use, diabetes mellitus and recent coronary artery stenting to the LAD presented to the emergency department for recurrent episodes of chest pain lasting up to an hour and a half. Patient relates these symptoms are the same as those prior to her recent stenting and are present both at rest and with activity. Also associated with weakness and fatigue with some nausea and diaphoresis. Patient was admitted through the emergency department with cardiac enzymes returning normal overnight. EKG shows sinus rhythm with diffuse ST-T abnormalities in the inferior and anterolateral leads suggestive of ischemia. Cardiology consulted for evaluation and recommendations. Above per Cardiology FELICIT[facility] [place]. Hospital Course Hospital Course: Patient was admitted for observation. machine veneer repairer was applied which was uneventful. Serial enzymes were obtained which were normal. Cardiology was consulted and LHC was performed. Stents were patent and no intervention was required. See cath report. Discharge home. See medication reconciliation for complete list. FU with myself in one week, CMP prior to appointment. FU with Dr. Finn in 2 weeks. Objective Vital signs: Temp Pulse Resp BP Pulse Ox 98.1 F 67 16 115/64 95 11/26/17 13:25 11/26/17 16:10 11/26/17 16:10 11/26/17 16:10 11/26/17 16:10 Narrative: See H&P from this morning Results Labs on day of discharge: Labs from last 24 hours 11/26/17 11/26/17 11/26/17 12:42 06:22 06:22 WBC 6.4 D RBC 4.40 Hgb 13.0 D Hct 39.2 MCV 89.1 MCH 29.5 MCHC 33.0 RDW 12.8 Plt Count 250 MPV 7.2 L Neut % (Auto) 36.9 L Lymph % (Auto) 51.[address] [place] % (Auto) 4.9 Eos % (Auto) 5.5 Baso % (Auto) 1.3 Neut # (Auto) 2.3 Lymph # (Auto) 3.3 [place] # (Auto) 0.3 Eos # (Auto) 0.4 Baso # (Auto) 0.1 Total Counted 100 Neutrophils % (Manual) 39 L Lymphocytes % (Manual) 43 Atypical Lymphs % 7.0 Monocytes % (Manual) 7 Eosinophils % (Manual) 4 H Platelet Estimate Normal RBC Morphology Normal Activated Clotting Time 254 H* Sodium 139 Potassium 3.2 L Chloride 100 Carbon Dioxide 28 Anion Gap 14.2 BUN 32 H Creatinine 1.93 H Estimated Creat Clear 34 Estimated GFR 27 L Est GFR ([facility] Amer) 33 L Glucose 181 H POC Glucose Calcium 9.0 D Troponin I 11/26/17 11/26/17 11/26/17 05:12 04:06 03:35 WBC RBC Hgb Hct MCV MCH MCHC RDW Plt Count MPV Neut % (Auto) Lymph % (Auto) [place] % (Auto) Eos % (Auto) Baso % (Auto) Neut # (Auto) Lymph # (Auto) [place] # (Auto) Eos # (Auto) Baso # (Auto) Total Counted Neutrophils % (Manual) Lymphocytes % (Manual) Atypical Lymphs % Monocytes % (Manual) Eosinophils % (Manual) Platelet Estimate RBC Morphology Activated Clotting Time Sodium Potassium Chloride Carbon Dioxide Anion Gap BUN Creatinine Estimated Creat Clear Estimated GFR Est GFR ([facility] Amer) Glucose POC Glucose 182 H 192 H Calcium Troponin I < 0.02 11/26/17 11/25/17 11/25/17 00:35 21:39 19:37 WBC RBC Hgb Hct MCV MCH MCHC RDW Plt Count MPV Neut % (Auto) Lymph % (Auto) [place] % (Auto) Eos % (Auto) Baso % (Auto) Neut # (Auto) Lymph # (Auto) [place] # (Auto) Eos # (Auto) Baso # (Auto) Total Counted Neutrophils % (Manual) Lymphocytes % (Manual) Atypical Lymphs % Monocytes % (Manual) Eosinophils % (Manual) Platelet Estimate RBC Morphology Activated Clotting Time Sodium 136 Potassium 3.5 Chloride 94 L Carbon Dioxide 25 Anion Gap 20.5 H BUN 29 H Creatinine 2.25 H Estimated Creat Clear 29 Estimated GFR 23 L Est GFR ([facility] Amer) 28 L Glucose 152 H POC Glucose Calcium 10.5 H Troponin I < 0.02 < 0.02 < 0.02 11/25/17 19:37 WBC 9.1 RBC 5.02 Hgb 14.9 Hct 44.5 MCV 88.7 MCH 29.6 MCHC 33.4 RDW 12.7 Plt Count 327 MPV 7.2 L Neut % (Auto) 48.6 Lymph % (Auto) 41.0 [place] % (Auto) 4.2 Eos % (Auto) 5.0 Baso % (Auto) 1.2 Neut # (Auto) 4.4 Lymph # (Auto) 3.7 [place] # (Auto) 0.4 Eos # (Auto) 0.5 H Baso # (Auto) 0.1 Total Counted Neutrophils % (Manual) Lymphocytes % (Manual) Atypical Lymphs % Monocytes % (Manual) Eosinophils % (Manual) Platelet Estimate RBC Morphology Activated Clotting Time Sodium Potassium Chloride Carbon Dioxide Anion Gap BUN Creatinine Estimated Creat Clear Estimated GFR Est GFR ( Amer) Glucose POC Glucose Calcium Troponin I DS: Diagnosis - Discharge Diagnosis (1) Angina at rest Status: Acute (2) CAD (coronary artery disease) Status: Acute (3) History of coronary artery stent placement Status: Acute (4) Hypertension Status: Acute (5) Diabetes mellitus Status: Acute (6) Hypercholesteremia Status: Acute (7) Hypothyroidism Status: Acute (8) Tobacco dependence syndrome Status: Acute (9) Renal insufficiency Status: Acute Discharge Plan - Patient Discharge Instructions ACTIVITY: Continue current activity DIET: continue same diet Patient Instructions: DI for Cardiac Catheterization - Follow up Plan Follow up with: Sasha Odom APRN [Nurse Practitioner] - 1 week Disposition: Home, Self-Usp Medications: Home Medications Medication Instructions Recorded Confirmed Type albuterol sulfate HFA 90 2 puff INHALATION Q4-6H PRN 10/16/17 11/25/17 History mcg/actuation aerosol inhaler alprazolam 1 mg tablet 1 mg PO TIDP PRN tab 10/16/17 11/26/17 History diltiazem CD 120 mg 120 mg PO DAILY cap 10/16/17 11/25/17 History capsule,extended release 24 hr esomeprazole magnesium 20 mg 20 mg PO DAILY cap 10/16/17 11/25/17 History capsule,delayed release famotidine 20 mg tablet 20 mg PO BIDP PRN 10/16/17 11/26/17 History fenofibrate micronized 134 mg 134 mg PO DAILY cap 10/16/17 11/25/17 History capsule fluticasone 100 mcg-salmeterol 50 1 puff INHALATION BID 10/16/17 11/25/17 History mcg/dose blistr powdr for inhalation lamotrigine 100 mg tablet 100 mg PO BID 10/16/17 11/25/17 History levothyroxine 125 mcg tablet 125 mcg PO DAILY tab 10/16/17 11/25/17 History metformin 1,000 mg tablet 1,000 mg PO BID 10/16/17 11/25/17 History ondansetron HCl 4 mg tablet 4 mg PO Q6H PRN 10/16/17 11/25/17 History potassium chloride ER 20 mEq 20 meq PO DAILY tab 10/16/17 11/25/17 History tablet,extended release rosuvastatin 10 mg tablet 10 mg PO HS tab 10/16/17 11/26/17 History venlafaxine ER 150 mg 300 mg PO DAILY cap 10/16/17 11/25/17 History capsule,extended release 24 hr buspirone 10 mg tablet 10 mg PO BID 10/17/17 11/25/17 History cholecalciferol (vitamin D3) 2,000 2,000 unit PO DAILY cap 10/17/17 11/25/17 History unit capsule cyanocobalamin (vit B-12) ER 1,000 1,000 mcg PO DAILY tab 10/17/17 11/25/17 History mcg tablet,extended release aspirin 81 mg tablet,delayed 81 mg PO DAILY tab 11/21/17 11/25/17 History release ticagrelor 90 mg tablet 90 mg PO BID 11/21/17 11/25/17 History Bisoprolol Fumarate [Zebeta 5mg 5 mg PO DAILY 11/25/17 11/25/17 History tablet] Ranolazine [Ranexa 500mg ER tablet] 500 mg PO Q12H 11/25/17 11/25/17 History Furosemide [Furosemide 40MG tAB] 40 mg PO DAILY 11/26/17 11/26/17 History Linaclotide [Linzess] 290 mcg PO DAILY 11/26/17 11/26/17 History Prescriptions/Medication Reconciliation: Continue albuterol sulfate HFA 90 mcg/actuation aerosol inhaler 2 puff INHALATION Q4- 6H PRN PRN Reason: breathing ondansetron HCl 4 mg tablet 4 mg PO Q6H PRN PRN Reason: Nausea venlafaxine ER 150 mg capsule,extended release 24 hr 300 mg PO DAILY cap fenofibrate micronized 134 mg capsule 134 mg PO DAILY cap rosuvastatin 10 mg tablet 10 mg PO HS tab esomeprazole magnesium 20 mg capsule,delayed release 20 mg PO DAILY cap famotidine 20 mg tablet 20 mg PO BIDP PRN PRN Reason: Heartburn levothyroxine 125 mcg tablet 125 mcg PO DAILY tab alprazolam 1 mg tablet 1 mg PO TIDP PRN tab PRN Reason: Anxiety fluticasone 100 mcg-salmeterol 50 mcg/dose blistr powdr for inhalation 1 puff INHALATION BID diltiazem CD 120 mg capsule,extended release 24 hr 120 mg PO DAILY cap lamotrigine 100 mg tablet 100 mg PO BID metformin 1,000 mg tablet 1,000 mg PO BID cyanocobalamin (vit B-12) ER 1,000 mcg tablet,extended release 1,000 mcg PO DAILY tab cholecalciferol (vitamin D3) 2,000 unit capsule 2,000 unit PO DAILY cap ticagrelor 90 mg tablet 90 mg PO BID aspirin 81 mg tablet,delayed release 81 mg PO DAILY tab potassium chloride ER 20 mEq tablet,extended release 20 meq PO DAILY tab buspirone 10 mg tablet 10 mg PO BID Ranolazine [Ranexa 500mg ER tablet] 500 mg PO Q12H Bisoprolol Fumarate [Zebeta 5mg tablet] 5 mg PO DAILY Linaclotide [Linzess] 290 mcg PO DAILY Furosemide [Furosemide 40MG tAB] 40 mg PO DAILY Other Amb Orders: Comprehensive Metabolic Panel Time Frame: 1 Week, Location: None Selected
== END 2017-11-26 19:05 | disposition home or self-care (01) ==
LOC: ER 19:23 → 2ND 19:23
PROVIDERS: ADMIT Emergency Medicine; ATTEND Internal Medicine Adolescent Medicine

== ENCOUNTER 2017-12-03 22:46 | Observation (INO) ==
--- NOTE | 2017-12-03 22:53 | Emergency Department Note ---
ED Disposition Clinical Impression: Chest pain, precordial Disposition: Still a Patient Condition on Discharge: Good - Critical Care Critical Care Time: No Attestation: On 12/03/17, the high probability of a clinically significant, sudden or life threatening deterioration of the following system(s) required my full and direct attention, intervention and personal management. The time I documented below is in addition to time spent performing reported procedures but includes the following listed in this critical care notation. Medical Decision Making - Rob Inquiry Pt receiving controlled substance: No Vital Signs: 12/03/17 22:48 12/03/17 23:53 12/04/17 00:51 Temperature 98.3 F Temperature Source Oral Pulse Rate [Right Radial] 76 76 72 Respiratory Rate 18 20 14 Blood Pressure [Right Arm] 142/87 166/54 143/69 Blood Pressure Mean [Right Arm] 105 91 93 Blood Pressure Source [Right Arm] Automatic Cuff Automatic Cuff Blood Pressure Position [Right Arm] Sitting Supine 02 Sat by Pulse Oximetry 95 97 99 Oxygen Delivery Method Room Air Room Air Room Air 12/04/17 01:04 Temperature Temperature Source Pulse Rate [Right Radial] 72 Respiratory Rate 16 Blood Pressure [Right Arm] 143/69 Blood Pressure Mean [Right Arm] 93 Blood Pressure Source [Right Arm] Automatic Cuff Blood Pressure Position [Right Arm] Supine 02 Sat by Pulse Oximetry 97 Oxygen Delivery Method Room Air - Lab Data Lab Results 12/03/17 21:13: WBC 8.1, RBC 5.00, Hgb 14.2, Hct 43.3, MCV 86.8, MCH 28.5, MCHC 32.8, RDW 12.9, Plt Count 332, MPV 6.9 L, Neut % (Auto) 50.1, Lymph % (Auto) 41.4, [place] % (Auto) 4.2, Eos % (Auto) 3.3, Baso % (Auto) 1.0, Neut # (Auto) 4.1 , Lymph # (Auto) 3.4, [place] # (Auto) 0.3, Eos # (Auto) 0.3, Baso # (Auto) 0.1 12/03/17 21:13: Sodium 134 L, Potassium 3.8, Chloride 96 L, Carbon Dioxide 22, Anion Gap 19.8 H, BUN 34 H, Creatinine 2.09 H, Estimated Creat Clear 30, Estimated GFR 25 L, Est GFR ( Amer) 30 L, Glucose 140 H, Calcium 9.8, Total Bilirubin 0.4, AST 44 H, ALT 34, Alkaline Phosphatase 105, Troponin I < 0.02, Total Protein 9.4 H D, Albumin 5.1 H, Globulin 4.3 H, Albumin/Globulin Ratio 1.2, Amylase 86, Lipase 814 H 12/03/17 23:12: B-Natriuretic Peptide 12 Result diagrams: 12/03/17 21:13 12/03/17 21:13 Orders (Tests/Meds): ORDERS Category Date Time Status XR chest 2V Stat Exams 12/03/17 22:58 Taken Thyroid Panel Stat Lab 12/04/17 01:09 Ordered - Radiology Data #1 Image(s): Chest Image Reviewed: Yes I reviewed the patient's radiology image Preliminary Findings: Normal/NAD - ECG Data Tracing #1 EKG interpreted by Jacob Kay MD: Rhythm: sinus Rate: 76 [place] View: normal Ectopy: none Conduction: normal ST Segment Changes: Nonspecific T Wave Changes: Anterior inversion in V3 and V4, flattening otherwise. Q Waves: none Prior electrocardiagrams reviewed. No change from prior tracings. - Physician Consults Physician Consulted: Aakash Time: 23:55 Reason -: Pt condition Comment/Response: Recommends admission for further evaluation Additional Consult: Maritza Time: 01:08 Reason -: Admission Comment/Response: Lactated Ringer's at 100 cc overnight. General Adult HPI - General Chief complaint: Chest Pain Stated complaint: chest pain Time Seen by Provider: 12/03/17 23:00 - History of Present Illness HPI narrative: Complains of chest pain, dyspnea, decreased urinary output. Having problems with chest pain for about 2-3 months. She had a cardiac cath and stent placement with [address] Finn on 11/13/17. She continued to have chest pain after that and had another cardiac cath 11/26/17. Stents were patent at that time. She received medical management and it was thought her angina was likely due to elevated left ventricular end-diastolic pressure. She was started on diuresis and hypertension control. Daughter states that she is continued to have chest pain daily since her second cardiac cath. It has always been the same type of pain that she was having even before her first cardiac cath. She describes a chest pressure with dyspnea. Discomfort radiates to her back. Pain is present at rest, but worsens with exertion as does the dyspnea. She has nausea and sweatiness. She also complains of anxiety and shakiness which she has had for years. She is on Xanax 1 mg 3 times a day, but does not feel it is helping anymore. She is also concerned that her symptoms may be related to Brilinta. Her symptoms have been daily, but today symptoms lasted all day long and were worse than normal. She has had decreased urinary output over the past week. She is on Lasix since her first cardiac cath. Daughter states that she was under the impression that a second diuretic was going to be started after the second cardiac cath, but she never received a prescription. She states she called Dr. Finn's office today at 1. She was told that they were busy and they would call her back. She never received a return call. - Related Data Home Medications Medication Instructions Recorded Confirmed albuterol sulfate HFA 90 2 puff INHALATION Q4-6H PRN 10/16/17 12/03/17 mcg/actuation aerosol inhaler alprazolam 1 mg tablet 1 mg PO TIDP PRN tab 10/16/17 12/03/17 diltiazem CD 120 mg 120 mg PO DAILY cap 10/16/17 12/03/17 capsule,extended release 24 hr esomeprazole magnesium 20 mg 20 mg PO DAILY cap 10/16/17 12/03/17 capsule,delayed release famotidine 20 mg tablet 20 mg PO BIDP PRN 10/16/17 12/03/17 fenofibrate micronized 134 mg 134 mg PO DAILY cap 10/16/17 12/03/17 capsule fluticasone 100 mcg-salmeterol 50 1 puff INHALATION BID 10/16/17 12/03/17 mcg/dose blistr powdr for inhalation lamotrigine 100 mg tablet 100 mg PO BID 10/16/17 12/03/17 levothyroxine 125 mcg tablet 125 mcg PO DAILY tab 10/16/17 12/03/17 metformin 1,000 mg tablet 1,000 mg PO BID 10/16/17 12/03/17 ondansetron HCl 4 mg tablet 4 mg PO Q6H PRN 10/16/17 12/03/17 potassium chloride ER 20 mEq 20 meq PO DAILY tab 10/16/17 12/03/17 tablet,extended release rosuvastatin 10 mg tablet 10 mg PO HS tab 10/16/17 12/03/17 venlafaxine ER 150 mg 300 mg PO DAILY cap 10/16/17 12/03/17 capsule,extended release 24 hr buspirone 10 mg tablet 10 mg PO BID 10/17/17 12/03/17 cholecalciferol (vitamin D3) 2,000 2,000 unit PO DAILY cap 10/17/17 12/03/17 unit capsule cyanocobalamin (vit B-12) ER 1,000 1,000 mcg PO DAILY tab 10/17/17 12/03/17 mcg tablet,extended release aspirin 81 mg tablet,delayed 81 mg PO DAILY tab 11/21/17 12/03/17 release ticagrelor 90 mg tablet 90 mg PO BID 11/21/17 12/03/17 Bisoprolol Fumarate [Zebeta 5mg 5 mg PO DAILY 11/25/17 12/03/17 tablet] Ranolazine [Ranexa 500mg ER tablet] 500 mg PO Q12H 11/25/17 12/03/17 Furosemide [Furosemide 40MG tAB] 40 mg PO DAILY 11/26/17 12/03/17 Linaclotide [Linzess] 290 mcg PO DAILY 11/26/17 12/03/17 Allergies Allergy/AdvReac Type Severity Reaction Status Date / Time aripiprazole [From ABILIFY] Allergy Unknown Verified 11/25/17 19:31 citalopram [From CELEXA] Allergy Unknown UNKNOWN Verified 11/25/17 19:31 hydrocodone [From LORTAB] Allergy Unknown Verified 11/25/17 19:31 olanzapine [From ZYPREXA] Allergy Unknown Verified 11/25/17 19:31 quetiapine [From SEROQUEL] Allergy Unknown Verified 11/25/17 19:31 Sulfa (Sulfonamide Allergy Unknown Verified 11/25/17 19:31 Antibiotics) [SULFA (SULFONAMIDE ANTIBIOTICS)] [facility] History I have reviewed the patient's past medical history: Yes Medical History: Reports:: Chronic Obstructive Pulmonary Disease (COPD), Depression, Diabetes Mellitus Type 2, Kidney Stones, Palpitations, Renal Disease Denies:: Cancer, Internal Pacemaker, MRSA, Seizures Other Medical History: Reports: Hypothyroidism Other Surgeries: Yes: Colonoscopy. No: Pacemaker Amputation: No Fractures: No - Social History Smoking Status: Current every day smoker Tobacco Type: cigarettes # Packs/Day (cigarettes): 1 Alcohol Intake: never Alcohol Intake Frequency:: other Substance Use Type: denies use Occupational Status: employed Housing: apartment Household Members: none - Psychiatric History Pschychiatric History:: Reports:: Depression Family Hx:: Coronary Artery Disease, Heart Attack ROS Obtained: Yes All systems reviewed & no additional complaints - Constitutional Constitutional: Reports difficulty sleeping, Reports excessive sweating, Reports fatigue, Denies fever(s) - Cardiovascular Cardiovascular: Reports chest pain, Reports chest pain at rest, Reports chest pain with activity, Denies edema - Respiratory Respiratory: No cough, Yes dyspnea, Yes dyspnea on exertion, No coughing up blood - Gastrointestinal Gastrointestingal: Reports: nausea. Denies: abdominal pain - Neurologic Neurologic: Reports other (muscle fasciculations) Physical Exam - General General appearance: alert Comment: Anxious, tremulous - Head Head exam: atraumatic, normocephalic, normal inspection - Eye Eye exam: Present: normal appearance, PERRL, EOMI - ENT ENT exam: Present: normal exam, normal oropharynx, mucous membranes moist, TM's normal bilaterally, normal external ear exam - Neck Neck exam: Present: normal inspection, full ROM, trachea midline. Absent: meningismus, lymphadenopathy - Chest Chest inspection: Present: normal inspection, symmetric chest wall rise. Absent : tenderness - Respiratory Respiratory exam: Present: normal lung sounds bilaterally. Absent: respiratory distress - Cardiovascular Cardiovascular exam: Present: regular rate, normal rhythm. Absent: JVD - Abdominal Exam Abdominal exam: Present: soft, normal bowel sounds, other (colostomy). Absent: distention, tenderness, guarding - Extremities Exam Extremities exam: Present: normal inspection, full ROM, normal capillary refill. Absent: pedal edema, calf tenderness - Back Exam Back exam: Present: normal inspection. Absent: tenderness - Neurological Exam Neurological exam: Present: alert, oriented X3. Absent: motor sensory deficit - Psychiatric Psychiatric exam: Present: anxious - Skin Skin exam: Present: warm, dry, intact, normal color
[2017-12-03 23:24] LABS: Basophils # 0.1 K/mm3 (0-0.2); Eosinophils # 0.3 K/mm3 (0.0-0.4); Eosinophils % 3.3 % (0.1-12.0); Hematocrit 43.3 % (37.0-47.0); Hemoglobin 14.2 g/dL (12.2-16.2); Lymphocytes # 3.4 K/mm3 (0.7-4.5); Lymphocytes % 41.4 K/mm3 (10-50); Mean Corpuscular HGB Conc 32.8 g/dL (31.8-35.4); Mean Corpuscular Hemoglobin 28.5 pg (27.0-31.2); Mean Corpuscular Volume 86.8 fl (81-99); Mean Platelet Volume 6.9 fl (7.4-10.4); Monocytes # 0.3 K/mm3 (0.1-1.0); Monocytes % 4.2 % (1.7-9.3); Neutrophils # 4.1 K/mm3 (1.8-7.8); Neutrophils % 50.1 % (37.0-80.0); Platelet Count 332 K/mm3 (142-424); Red Cell Distribution Width 12.9 % (11.5-17.5); White Blood Count 8.1 K/mm3 (4.8-10.8)
[2017-12-03 23:38] LABS: Alanine Aminotransferase 34 U/L (12-78); Albumin Level 5.1 gm/dL (3.4-5.0); Albumin/Globulin Ratio 1.2 (1.1-1.8); Alkaline Phosphatase 105 U/L (46-116); Amylase 86 U/L (25-125); Anion Gap 19.8 mEq/L (5-15); Aspartate Amino Transferase 44 U/L (15-37); Bilirubin,Total 0.4 mg/dL (0.2-1.0); Blood Urea Nitrogen 34 mg/dL (7-18); Calcium 9.8 mg/dL (8.5-10.1); Carbon Dioxide 22 mmol/L (21.0-32.0); Chloride 96 mmol/L (98-107); Globulin 4.3 gm/dl (1.3-3.2); Glucose 140 mg/dL (74-106); Potassium 3.8 mmoL/L (3.5-5.1); Sodium 134 mmol/L (136-145); Total Protein,Serum 9.4 gm/dL (6.4-8.2)
[2017-12-03 23:41] LABS: Lipase 814 u/L (73-393)
[2017-12-04 02:19] LABS: Free Thyroxine Index 4.7 ug/dL (5.93-13.13); Thyroid Stimulating Hormone 4.16 uIU/ml (0.358-3.740); Triiodothryronine (T3) Uptake 31 % (31-39)
[2017-12-04 06:07] LABS: Anion Gap 15.3 mEq/L (5-15); Blood Urea Nitrogen 32 mg/dL (7-18); Calcium 9.2 mg/dL (8.5-10.1); Carbon Dioxide 25 mmol/L (21.0-32.0); Chloride 99 mmol/L (98-107); Glucose 110 mg/dL (74-106); Potassium 3.3 mmoL/L (3.5-5.1); Sodium 136 mmol/L (136-145)
--- NOTE | 2017-12-04 07:23 | Pharmacy Consult Notes ---
[facility] Pharmacy VTE Monitoring - Patient Demographics Admission date: 12/04/17 Report Date: 12/04/17 Time: 07:22 Allergies/Adverse Reactions: Patient Allergies aripiprazole [From ABILIFY] Allergy (Unknown, Verified 11/25/17 19:31) citalopram [From CELEXA] Allergy (Unknown, Verified 11/25/17 19:31) UNKNOWN hydrocodone [From LORTAB] Allergy (Unknown, Verified 11/25/17 19:31) olanzapine [From ZYPREXA] Allergy (Unknown, Verified 11/25/17 19:31) quetiapine [From SEROQUEL] Allergy (Unknown, Verified 11/25/17 19:31) Sulfa (Sulfonamide Antibiotics) [SULFA (SULFONAMIDE ANTIBIOTICS)] Allergy ( Unknown, Verified 11/25/17 19:31) Height: 1.52 m Weight: 58.513 kg Patient Problems: Current Active Problems Chest pain, precordial (Acute) - VTE Risk Labs: VTE Related Lab Results Hgb 14.2 g/dL (12.2-16.2) 12/03/17 21:13 Hct 43.3 % (37.0-47.0) 12/03/17 21:13 Plt Count 332 K/mm3 (142-424) 12/03/17 21:13 BUN 32 mg/dL (7-18) H 12/04/17 04:55 Creatinine 1.74 mg/dL (0.55-1.02) H 12/04/17 04:55 Estimated Creat Clear 35 mL/min (0-300) 12/04/17 04:55 Was VTE Risk Assessment Performed: Yes VTE Score: 6 VTE Risk Level: Moderate Risk Clinical Trial Participant: No - Prophylaxis VTE Prophylaxis Ordered?: Yes Types of VTE Prophylaxis: TEDS Knee High
[2017-12-04 07:35] VITALS: BP 118/64
--- NOTE | 2017-12-04 07:58 | History & Physical Report ---
*Admission Date: 12/04/17 *Chief complaint: Chest pain with shortness of air *History of present illness: 52-year-old white female with known cardiac disease, smoking, hyperlipidemia and type 2 diabetes, who had stent placement on November 13 with 1 stent to the right coronary. She was re-studied again on November 26 because of persistent chest pain and this is noted in her previous chart records, but no new stents were placed in medical management was recommended. Patient over the past week or so continues to complain of chest pressure and pain. She thinks it is from her Brilinta therapy, and try to get a hold of cardiology offices yesterday but was unsuccessful. Came to the emergency department. Enzymes were negative, but the ER doctor phoned senior sustainability consultant who recommended admission overnight and reevaluation this morning. This morning she notes that her pain has "eased off" and she denies palpitations or dyspnea. [facility] History I have reviewed the patient's past medical history: Yes Medical History: Reports:: Chronic Obstructive Pulmonary Disease (COPD), Depression, Diabetes Mellitus Type 2, Hyperlipidemia, Kidney Stones, Palpitations, Renal Disease Denies:: Cancer, Diabetes Mellitus Type 1, Internal Pacemaker, MRSA, Seizures Other Medical History: Reports: Hypothyroidism, Sinus Problems, Thyroid Disease Other Surgeries: Yes: Cardiac Catheterization, Colonoscopy. No: Pacemaker Amputation: No Fractures: No - *Social History Educational Level: Attended College Smoking Status: Current some day smoker Tobacco Type: cigarettes # Packs/Day (cigarettes): 2 Alcohol Intake: never Alcohol Intake Frequency:: other Substance Use Type: denies use Occupational Status: employed Housing: apartment Household Members: none - Psychiatric History Expresses thoughts of harming self/others: None Suicide Plan Description: No Plan Pschychiatric History:: Reports:: Depression *Family Hx:: Coronary Artery Disease, Diabetes, Heart Attack, Hyperlipidemia, Stroke Review of Systems - Review of Systems Review of systems:: pertinent systems reviewed and negative unless documented below - *Neurologic Reports other (muscle fasciculations) Meds Home Medications Medication Instructions Recorded Confirmed Type albuterol sulfate HFA 90 2 puff INHALATION Q4-6H PRN 10/16/17 12/03/17 History mcg/actuation aerosol inhaler alprazolam 1 mg tablet 1 mg PO TIDP PRN tab 10/16/17 12/04/17 History diltiazem CD 120 mg 120 mg PO DAILY cap 10/16/17 12/04/17 History capsule,extended release 24 hr esomeprazole magnesium 20 mg 20 mg PO DAILY cap 10/16/17 12/04/17 History capsule,delayed release famotidine 20 mg tablet 20 mg PO BIDP PRN 10/16/17 12/04/17 History fenofibrate micronized 134 mg 134 mg PO DAILY cap 10/16/17 12/04/17 History capsule fluticasone 100 mcg-salmeterol 50 1 puff INHALATION BID 10/16/17 12/03/17 History mcg/dose blistr powdr for inhalation lamotrigine 100 mg tablet 100 mg PO BID 10/16/17 12/04/17 History levothyroxine 125 mcg tablet 125 mcg PO DAILY tab 10/16/17 12/04/17 History metformin 1,000 mg tablet 1,000 mg PO BID 10/16/17 12/04/17 History ondansetron HCl 4 mg tablet 4 mg PO Q6H PRN 10/16/17 12/04/17 History potassium chloride ER 20 mEq 20 meq PO DAILY tab 10/16/17 12/04/17 History tablet,extended release rosuvastatin 10 mg tablet 10 mg PO HS tab 10/16/17 12/04/17 History venlafaxine ER 150 mg 300 mg PO DAILY cap 10/16/17 12/04/17 History capsule,extended release 24 hr buspirone 10 mg tablet 10 mg PO BID 10/17/17 12/04/17 History cholecalciferol (vitamin D3) 2,000 2,000 unit PO DAILY cap 10/17/17 12/04/17 History unit capsule cyanocobalamin (vit B-12) ER 1,000 1,000 mcg PO DAILY tab 10/17/17 12/04/17 History mcg tablet,extended release aspirin 81 mg tablet,delayed 81 mg PO DAILY tab 11/21/17 12/04/17 History release ticagrelor 90 mg tablet 90 mg PO BID 11/21/17 12/04/17 History Bisoprolol Fumarate [Zebeta 5mg 5 mg PO DAILY 11/25/17 12/04/17 History tablet] Ranolazine [Ranexa 500mg ER tablet] 500 mg PO Q12H 11/25/17 12/04/17 History Furosemide [Furosemide 40MG tAB] 40 mg PO DAILY 11/26/17 12/04/17 History Linaclotide [Linzess] 290 mcg PO DAILY 11/26/17 12/04/17 History Allergies Allergy/AdvReac Type Severity Reaction Status Date / Time aripiprazole [From ABILIFY] Allergy Unknown Verified 11/25/17 19:31 citalopram [From CELEXA] Allergy Unknown UNKNOWN Verified 11/25/17 19:31 hydrocodone [From LORTAB] Allergy Unknown Verified 11/25/17 19:31 olanzapine [From ZYPREXA] Allergy Unknown Verified 11/25/17 19:31 quetiapine [From SEROQUEL] Allergy Unknown Verified 11/25/17 19:31 Sulfa (Sulfonamide Allergy Unknown Verified 11/25/17 19:31 Antibiotics) [SULFA (SULFONAMIDE ANTIBIOTICS)] Exam Vital signs and Labs for Last 24 Hours: Temp Pulse Resp BP Pulse Ox 97.5 F L 67 18 118/64 95 12/04/17 07:33 12/04/17 07:33 12/04/17 07:33 12/04/17 07:33 12/04/17 07:33 Laboratory Results - last 24 hr 12/03/17 21:13: WBC 8.1, RBC 5.00, Hgb 14.2, Hct 43.3, MCV 86.8, MCH 28.5, MCHC 32.8, RDW 12.9, Plt Count 332, MPV 6.9 L, Neut % (Auto) 50.1, Lymph % (Auto) 41.4, [place] % (Auto) 4.2, Eos % (Auto) 3.3, Baso % (Auto) 1.0, Neut # (Auto) 4.1 , Lymph # (Auto) 3.4, [place] # (Auto) 0.3, Eos # (Auto) 0.3, Baso # (Auto) 0.1 12/03/17 21:13: Sodium 134 L, Potassium 3.8, Chloride 96 L, Carbon Dioxide 22, Anion Gap 19.8 H, BUN 34 H, Creatinine 2.09 H, Estimated Creat Clear 30, Estimated GFR 25 L, Est GFR ( Amer) 30 L, Glucose 140 H, Calcium 9.8, Total Bilirubin 0.4, AST 44 H, ALT 34, Alkaline Phosphatase 105, Troponin I < 0.02, Total Protein 9.4 H D, Albumin 5.1 H, Globulin 4.3 H, Albumin/Globulin Ratio 1.2, Amylase 86, Lipase 814 H 12/03/17 23:12: B-Natriuretic Peptide 12 12/04/17 01:50: Troponin I < 0.02, TSH 4.16 H D, Free T4 Index 4.7 L, Thyroxine (T4) 15.0 H, T3 Uptake 31 12/04/17 04:55: Sodium 136, Potassium 3.3 L, Chloride 99, Carbon Dioxide 25, Anion Gap 15.3 H, BUN 32 H, Creatinine 1.74 H, Estimated Creat Clear 35, Estimated GFR 31 L, Est GFR ( Amer) 37 L D, Glucose 110 H D, Calcium 9.2 , Troponin I < 0.02 12/04/17 06:14: POC Glucose 101 I & O for Last 24 hours: Intake & Output 12/01/17 12/02/17 12/03/17 12/04/17 11:59 11:59 11:59 11:59 Intake Total 0 / 0 Balance 0 / 0 Weight 129 lb Narrative: Patient is comfortable, lying in hospital bed. No distress. Her heart rate is regular without murmurs. She has no JVD. Lungs are clear and well-expanded. She has no edema. Abdomen is tender but this is at her baseline, given her multiple problems with irritable bowel syndrome and colon resection issues in the past. H&P: Result - Labs Labs: Short CBC 12/03/17 Range/Units 21:13 WBC 8.1 (4.8-10.8) K/mm3 Hgb 14.2 (12.2-16.2) g/dL Hct 43.3 (37.0-47.0) % Plt Count 332 (142-424) K/mm3 BMP 12/03/17 12/04/17 21:13 04:55 Sodium 134 L 136 Potassium 3.8 3.3 L Chloride 96 L 99 Carbon Dioxide 22 25 BUN 34 H 32 H Creatinine 2.09 H 1.74 H Glucose 140 H 110 H D Calcium 9.8 9.2 Cardiac Enzymes 12/03/17 12/04/17 12/04/17 Range/Units 21:13 01:50 04:55 Troponin I < 0.02 < 0.02 < 0.02 (0.00-0.06) ng/ml Liver Function 12/03/17 Range/Units 21:13 Total Bilirubin 0.4 (0.2-1.0) mg/dL AST 44 H (15-37) U/L ALT 34 (12-78) U/L Alkaline Phosphatase 105 (46-116) U/L Albumin 5.1 H (3.4-5.0) gm/dL Assessment and Plan (1) Chest pain, precordial Current visit: Yes Status: Acute Category: Medical Code(s): R07.2 - Precordial pain (2) CAD (coronary artery disease) Current visit: No Status: Acute Category: Medical Code(s): I25.10 - Atherosclerotic heart disease of [place] coronary artery without angina pectoris - Assessment and plan all Dx Assessment and Plan for all problems:: Patient is ruled out for myocardial infarction with enzymes overnight. She is much more comfortable. I would think that changing Brilinta to Plavix would be a reasonable choice in this patient and continuing to reduce risk factors. I think she can be safely discharged today. We will discuss case with cardiology service.
--- NOTE | 2017-12-04 08:52 | Discharge Summary ---
General - General Admission date:: 12/04/17 Discharge date: 12/04/17 HPI HPI: 52-year-old white female with known cardiac disease, smoking, hyperlipidemia and type 2 diabetes, who had stent placement on November 13 with 1 stent to the right coronary. She was re-studied again on November 26 because of persistent chest pain and this is noted in her previous chart records, but no new stents were placed in medical management was recommended. Patient over the past week or so continues to complain of chest pressure and pain. She thinks it is from her Brilinta therapy, and try to get a hold of cardiology offices yesterday but was unsuccessful. Came to the emergency department. Enzymes were negative, but the ER doctor phoned financial sales consultant who recommended admission overnight and reevaluation this morning. This morning she notes that her pain has "eased off" and she denies palpitations or dyspnea. Hospital Course Hospital Course: Patient admitted, ruled out for UT as noted above. Cardiology consultation was obtained. Recommended change to Plavix, holding statin because of muscle aches and addressing cardiac risk factors with nicotine patch. They will follow her up in 1 week. We will discharge home today on Plavix instead of Brilinta. Objective Vital signs: Temp Pulse Resp BP Pulse Ox 97.5 F L 67 18 118/64 95 12/04/17 07:33 12/04/17 07:33 12/04/17 07:33 12/04/17 07:33 12/04/17 07:33 Narrative: Please see exam notes from this morning's H&P. Results Labs on day of discharge: Labs from last 24 hours 12/04/17 12/04/17 12/04/17 07:45 06:14 04:55 WBC RBC Hgb Hct MCV MCH MCHC RDW Plt Count MPV Neut % (Auto) Lymph % (Auto) [place] % (Auto) Eos % (Auto) Baso % (Auto) Neut # (Auto) Lymph # (Auto) [place] # (Auto) Eos # (Auto) Baso # (Auto) Sodium 136 Potassium 3.3 L Chloride 99 Carbon Dioxide 25 Anion Gap 15.3 H BUN 32 H Creatinine 1.74 H Estimated Creat Clear 35 Estimated GFR 31 L Est GFR ( Amer) 37 L D Glucose 110 H D POC Glucose 101 Calcium 9.2 Total Bilirubin AST ALT Alkaline Phosphatase Troponin I < 0.02 < 0.02 B-Natriuretic Peptide Total Protein Albumin Globulin Albumin/Globulin Ratio Amylase Lipase TSH Free T4 Index Thyroxine (T4) T3 Uptake 12/04/17 12/03/17 12/03/17 01:50 23:12 21:13 WBC RBC Hgb Hct MCV MCH MCHC RDW Plt Count MPV Neut % (Auto) Lymph % (Auto) [place] % (Auto) Eos % (Auto) Baso % (Auto) Neut # (Auto) Lymph # (Auto) [place] # (Auto) Eos # (Auto) Baso # (Auto) Sodium 134 L Potassium 3.8 Chloride 96 L Carbon Dioxide 22 Anion Gap 19.8 H BUN 34 H Creatinine 2.09 H Estimated Creat Clear 30 Estimated GFR 25 L Est GFR ( Amer) 30 L Glucose 140 H POC Glucose Calcium 9.8 Total Bilirubin 0.4 AST 44 H ALT 34 Alkaline Phosphatase 105 Troponin I < 0.02 < 0.02 B-Natriuretic Peptide 12 Total Protein 9.4 H D Albumin 5.1 H Globulin 4.3 H Albumin/Globulin Ratio 1.2 Amylase 86 Lipase 814 H TSH 4.16 H D Free T4 Index 4.7 L Thyroxine (T4) 15.0 H T3 Uptake 31 12/03/17 21:13 WBC 8.1 RBC 5.00 Hgb 14.2 Hct 43.3 MCV 86.8 MCH 28.5 MCHC 32.8 RDW 12.9 Plt Count 332 MPV 6.9 L Neut % (Auto) 50.1 Lymph % (Auto) 41.4 Johnston % (Auto) 4.2 Eos % (Auto) 3.3 Baso % (Auto) 1.0 Neut # (Auto) 4.1 Lymph # (Auto) 3.4 Johnston # (Auto) 0.3 Eos # (Auto) 0.3 Baso # (Auto) 0.1 Sodium Potassium Chloride Carbon Dioxide Anion Gap BUN Creatinine Estimated Creat Clear Estimated GFR Est GFR ( Amer) Glucose POC Glucose Calcium Total Bilirubin AST ALT Alkaline Phosphatase Troponin I B-Natriuretic Peptide Total Protein Albumin Globulin Albumin/Globulin Ratio Amylase Lipase TSH Free T4 Index Thyroxine (T4) T3 Uptake DS: Diagnosis - Discharge Diagnosis (1) Chest pain, precordial Status: Acute (2) CAD (coronary artery disease) Status: Acute Discharge Plan - Patient Discharge Instructions ACTIVITY: Continue current activity DIET: continue same diet - Follow up Plan Follow up with: Joey iFnn MD [Staff Physician] - 1 week Home Medications: Home Medications Medication Instructions Recorded Confirmed Type albuterol sulfate HFA 90 2 puff INHALATION Q4-6H PRN 10/16/17 12/03/17 History mcg/actuation aerosol inhaler alprazolam 1 mg tablet 1 mg PO TIDP PRN tab 10/16/17 12/04/17 History diltiazem CD 120 mg 120 mg PO DAILY cap 10/16/17 12/04/17 History capsule,extended release 24 hr esomeprazole magnesium 20 mg 20 mg PO DAILY cap 10/16/17 12/04/17 History capsule,delayed release famotidine 20 mg tablet 20 mg PO BIDP PRN 10/16/17 12/04/17 History fenofibrate micronized 134 mg 134 mg PO DAILY cap 10/16/17 12/04/17 History capsule fluticasone 100 mcg-salmeterol 50 1 puff INHALATION BID 10/16/17 12/03/17 History mcg/dose blistr powdr for inhalation lamotrigine 100 mg tablet 100 mg PO BID 10/16/17 12/04/17 History levothyroxine 125 mcg tablet 125 mcg PO DAILY tab 10/16/17 12/04/17 History metformin 1,000 mg tablet 1,000 mg PO BID 10/16/17 12/04/17 History ondansetron HCl 4 mg tablet 4 mg PO Q6H PRN 10/16/17 12/04/17 History potassium chloride ER 20 mEq 20 meq PO DAILY tab 10/16/17 12/04/17 History tablet,extended release rosuvastatin 10 mg tablet 10 mg PO HS tab 10/16/17 12/04/17 History venlafaxine ER 150 mg 300 mg PO DAILY cap 10/16/17 12/04/17 History capsule,extended release 24 hr buspirone 10 mg tablet 10 mg PO BID 10/17/17 12/04/17 History cholecalciferol (vitamin D3) 2,000 2,000 unit PO DAILY cap 10/17/17 12/04/17 History unit capsule cyanocobalamin (vit B-12) ER 1,000 1,000 mcg PO DAILY tab 10/17/17 12/04/17 History mcg tablet,extended release aspirin 81 mg tablet,delayed 81 mg PO DAILY tab 11/21/17 12/04/17 History release ticagrelor 90 mg tablet 90 mg PO BID 11/21/17 12/04/17 History Bisoprolol Fumarate [Zebeta 5mg 5 mg PO DAILY 11/25/17 12/04/17 History tablet] Ranolazine [Ranexa 500mg ER tablet] 500 mg PO Q12H 11/25/17 12/04/17 History Furosemide [Furosemide 40MG tAB] 40 mg PO DAILY 11/26/17 12/04/17 History Linaclotide [Linzess] 290 mcg PO DAILY 11/26/17 12/04/17 History Prescriptions/Medication Reconciliation: New Clopidogrel Bisulfate [Plavix 75mg Tab] 75 mg PO DAILY #30 tab Nicotine [Nicotine Patch 21mg/24hrs] 21 mg TD DAILY #30 patch Continue albuterol sulfate HFA 90 mcg/actuation aerosol inhaler 2 puff INHALATION Q4- 6H PRN PRN Reason: breathing ondansetron HCl 4 mg tablet 4 mg PO Q6H PRN PRN Reason: Nausea venlafaxine ER 150 mg capsule,extended release 24 hr 300 mg PO DAILY cap fenofibrate micronized 134 mg capsule 134 mg PO DAILY cap esomeprazole magnesium 20 mg capsule,delayed release 20 mg PO DAILY cap famotidine 20 mg tablet 20 mg PO BIDP PRN PRN Reason: Heartburn levothyroxine 125 mcg tablet 125 mcg PO DAILY tab alprazolam 1 mg tablet 1 mg PO TIDP PRN tab PRN Reason: Anxiety fluticasone 100 mcg-salmeterol 50 mcg/dose blistr powdr for inhalation 1 puff INHALATION BID diltiazem CD 120 mg capsule,extended release 24 hr 120 mg PO DAILY cap lamotrigine 100 mg tablet 100 mg PO BID metformin 1,000 mg tablet 1,000 mg PO BID cyanocobalamin (vit B-12) ER 1,000 mcg tablet,extended release 1,000 mcg PO DAILY tab cholecalciferol (vitamin D3) 2,000 unit capsule 2,000 unit PO DAILY cap aspirin 81 mg tablet,delayed release 81 mg PO DAILY tab potassium chloride ER 20 mEq tablet,extended release 20 meq PO DAILY tab buspirone 10 mg tablet 10 mg PO BID Ranolazine [Ranexa 500mg ER tablet] 500 mg PO Q12H Bisoprolol Fumarate [Zebeta 5mg tablet] 5 mg PO DAILY Linaclotide [Linzess] 290 mcg PO DAILY Furosemide [Furosemide 40MG tAB] 40 mg PO DAILY Discontinued rosuvastatin 10 mg tablet 10 mg PO HS tab ticagrelor 90 mg tablet 90 mg PO BID
[2017-12-04 09:05] LABS: Free Thyroxine Index 4.3 ug/dL (5.93-13.13); T4 (Thyroxine) 12.5 ug/dl (4.7-13.3); Thyroid Stimulating Hormone 2.61 uIU/ml (0.358-3.740)
--- NOTE | 2017-12-04 09:17 | Consult Report ---
History of Present Illness Consult date: 12/04/17 Requesting physician: Avelino Salas Consult reason: chest pain Chief complaint: chest pain, weakness Additional Medical History:: 1. Coronary artery disease A. High risk abnormal Myoview with anterior ischemia, 10/2017 B. Drug-eluting stent to LAD, proximal and mid in a noncontiguous fashion, 11/13/2017 with residual moderate RCA disease. C. Repeat cardiac cath, 11/26/2017 patent LAD stents with continued moderate disease of RCA and Circumflex arteries. Chest pain felt to be due to endothelial dysfunction related to tobacco use. 2. Diabetes mellitus, treated for 2 years 3. Tobacco use, continued 4. Hypertension 5. Hyperlipidemia, on statin and fibrate 6. History of colostomy placed for diverticulitis 7. History of ablation therapy, records unavailable at this time. 8. Anxiety History of present illness: 52-year-old white female with known cardiac disease, smoking, hyperlipidemia and type 2 diabetes, who had stent placement on November 13 with 1 stent to the LAD with residual RCA and Cx disease with recommendation for medical therapy. She was re-studied again on November 26 because of persistent chest pain and this is noted in her previous chart records, but no new stents were placed in medical management was recommended. Patient over the past week or so continues to complain of chest pressure and pain. She thinks it is from her Brilinta therapy , and try to get a hold of cardiology offices yesterday but was unsuccessful. Came to the emergency department. Enzymes were negative, but the ER doctor phoned nutrition consultant who recommended admission overnight and reevaluation this morning. This morning she notes that her pain has "eased off" and she denies palpitations or dyspnea. The above per Dr. Salas. Patient relates no change in chest discomfort since her first coronary stent placed at the end of October and even since her second cardiac cath on November 26. Patient does continue to smoke. She has multiple complaints including muscle fatigue and weakness along with the chest pain and severe anxiety. Patient states the chest pain was off and on all day yesterday lasting longer and longer each time. Enzymes normal overnight with no acute EKG changes. [facility] History Medical History: Reports:: Chronic Obstructive Pulmonary Disease (COPD), Depression, Diabetes Mellitus Type 2, Hyperlipidemia, Kidney Stones, Palpitations, Renal Disease Denies:: Cancer, Diabetes Mellitus Type 1, Internal Pacemaker, MRSA, Seizures Other Medical History: Reports: Hypothyroidism, Sinus Problems, Thyroid Disease Other Surgeries: Yes: Cardiac Catheterization, Colonoscopy. No: Pacemaker Amputation: No Fractures: No - *Social History Educational Level: Attended College Smoking Status: Current some day smoker Tobacco Type: cigarettes # Packs/Day (cigarettes): 2 Alcohol Intake: never Alcohol Intake Frequency:: other Substance Use Type: denies use Occupational Status: employed Housing: apartment Household Members: none - Psychiatric History Expresses thoughts of harming self/others: None Suicide Plan Description: No Plan Pschychiatric History:: Reports:: Depression *Family Hx:: Coronary Artery Disease, Diabetes, Heart Attack, Hyperlipidemia, Stroke Meds Home Medications Medication Instructions Recorded Confirmed Type albuterol sulfate HFA 90 2 puff INHALATION Q4-6H PRN 10/16/17 12/03/17 History mcg/actuation aerosol inhaler alprazolam 1 mg tablet 1 mg PO TIDP PRN tab 10/16/17 12/04/17 History diltiazem CD 120 mg 120 mg PO DAILY cap 10/16/17 12/04/17 History capsule,extended release 24 hr esomeprazole magnesium 20 mg 20 mg PO DAILY cap 10/16/17 12/04/17 History capsule,delayed release famotidine 20 mg tablet 20 mg PO BIDP PRN 10/16/17 12/04/17 History fenofibrate micronized 134 mg 134 mg PO DAILY cap 10/16/17 12/04/17 History capsule fluticasone 100 mcg-salmeterol 50 1 puff INHALATION BID 10/16/17 12/03/17 History mcg/dose blistr powdr for inhalation lamotrigine 100 mg tablet 100 mg PO BID 10/16/17 12/04/17 History levothyroxine 125 mcg tablet 125 mcg PO DAILY tab 10/16/17 12/04/17 History metformin 1,000 mg tablet 1,000 mg PO BID 10/16/17 12/04/17 History ondansetron HCl 4 mg tablet 4 mg PO Q6H PRN 10/16/17 12/04/17 History potassium chloride ER 20 mEq 20 meq PO DAILY tab 10/16/17 12/04/17 History tablet,extended release rosuvastatin 10 mg tablet 10 mg PO HS tab 10/16/17 12/04/17 History venlafaxine ER 150 mg 300 mg PO DAILY cap 10/16/17 12/04/17 History capsule,extended release 24 hr buspirone 10 mg tablet 10 mg PO BID 10/17/17 12/04/17 History cholecalciferol (vitamin D3) 2,000 2,000 unit PO DAILY cap 10/17/17 12/04/17 History unit capsule cyanocobalamin (vit B-12) ER 1,000 1,000 mcg PO DAILY tab 10/17/17 12/04/17 History mcg tablet,extended release aspirin 81 mg tablet,delayed 81 mg PO DAILY tab 11/21/17 12/04/17 History release ticagrelor 90 mg tablet 90 mg PO BID 11/21/17 12/04/17 History Bisoprolol Fumarate [Zebeta 5mg 5 mg PO DAILY 11/25/17 12/04/17 History tablet] Ranolazine [Ranexa 500mg ER tablet] 500 mg PO Q12H 11/25/17 12/04/17 History Furosemide [Furosemide 40MG tAB] 40 mg PO DAILY 11/26/17 12/04/17 History Linaclotide [Linzess] 290 mcg PO DAILY 11/26/17 12/04/17 History Allergies Allergy/AdvReac Type Severity Reaction Status Date / Time aripiprazole [From ABILIFY] Allergy Unknown Verified 11/25/17 19:31 citalopram [From CELEXA] Allergy Unknown UNKNOWN Verified 11/25/17 19:31 hydrocodone [From LORTAB] Allergy Unknown Verified 11/25/17 19:31 olanzapine [From ZYPREXA] Allergy Unknown Verified 11/25/17 19:31 quetiapine [From SEROQUEL] Allergy Unknown Verified 11/25/17 19:31 Sulfa (Sulfonamide Allergy Unknown Verified 11/25/17 19:31 Antibiotics) [SULFA (SULFONAMIDE ANTIBIOTICS)] Review of Systems - *Cardiovascular Reports chest pain, Reports shortness of breath with activity - *Respiratory Reports shortness of breath with activity - *Gastrointestinal Denies abdominal pain - *Neurologic Reports other (muscle fasciculations) Exam Vital signs and Labs for Last 24 Hours: Temp Pulse Resp BP Pulse Ox 97.5 F L 67 18 118/64 95 12/04/17 07:33 12/04/17 07:33 12/04/17 07:33 12/04/17 07:33 12/04/17 07:33 Laboratory Results - last 24 hr 12/03/17 21:13: WBC 8.1, RBC 5.00, Hgb 14.2, Hct 43.3, MCV 86.8, MCH 28.5, MCHC 32.8, RDW 12.9, Plt Count 332, MPV 6.9 L, Neut % (Auto) 50.1, Lymph % (Auto) 41.4, [place] % (Auto) 4.2, Eos % (Auto) 3.3, Baso % (Auto) 1.0, Neut # (Auto) 4.1 , Lymph # (Auto) 3.4, [place] # (Auto) 0.3, Eos # (Auto) 0.3, Baso # (Auto) 0.1 12/03/17 21:13: Sodium 134 L, Potassium 3.8, Chloride 96 L, Carbon Dioxide 22, Anion Gap 19.8 H, BUN 34 H, Creatinine 2.09 H, Estimated Creat Clear 30, Estimated GFR 25 L, Est GFR ( Amer) 30 L, Glucose 140 H, Calcium 9.8, Total Bilirubin 0.4, AST 44 H, ALT 34, Alkaline Phosphatase 105, Troponin I < 0.02, Total Protein 9.4 H D, Albumin 5.1 H, Globulin 4.3 H, Albumin/Globulin Ratio 1.2, Amylase 86, Lipase 814 H 12/03/17 23:12: B-Natriuretic Peptide 12 12/04/17 01:50: Troponin I < 0.02, TSH 4.16 H D, Free T4 Index 4.7 L, Thyroxine (T4) 15.0 H, T3 Uptake 31 12/04/17 04:55: Sodium 136, Potassium 3.3 L, Chloride 99, Carbon Dioxide 25, Anion Gap 15.3 H, BUN 32 H, Creatinine 1.74 H, Estimated Creat Clear 35, Estimated GFR 31 L, Est GFR ( Amer) 37 L D, Glucose 110 H D, Calcium 9.2 , Troponin I < 0.02 12/04/17 06:14: POC Glucose 101 12/04/17 07:45: Troponin I < 0.02 12/04/17 07:45: TSH 2.61 D, Free T4 Index 4.3 L, Thyroxine (T4) 12.5, T3 Uptake 34 I & O for Last 24 hours: Intake & Output 12/01/17 12/02/17 12/03/17 12/04/17 11:59 11:59 11:59 11:59 Intake Total 0 / 0 Balance 0 / 0 Weight 129 lb - *Routine Neck Exam Absent: JVD, carotid bruit - *Routine Respiratory Exam Present: CTA bilaterally - *Routine Cardiovascular Exam Present: RRR. Absent: murmur, gallop - *Routine Extremities Exam Absent: edema - *Routine Neurological Exam Present: alert, oriented X3 - Routine Psychiatric Exam Present: anxious Assessment and Plan (1) Chest pain, precordial Current visit: Yes Status: Acute Category: Medical Code(s): R07.2 - Precordial pain (2) CAD (coronary artery disease) Current visit: No Status: Acute Category: Medical Code(s): I25.10 - Atherosclerotic heart disease of [place] coronary artery without angina pectoris - Assessment and plan all Dx Assessment and Plan for all problems:: 1. Recurrent, progressive chest pain with normal troponins 3 and no acute EKG changes. Doubt cardiac etiology. Due to the patient's focus of symptoms being related to Brilinta will switch her to Plavix 75 mg daily. Due to her continued smoking and suspected endothelial dysfunction will start Ranexa thousand milligrams twice daily since she did get relief with Ranexa last evening with less discomfort overnight. Smoking cessation has been encouraged. Due to her muscle weakness will recommend holding her statin therapy for 1 week. Continue her other medications and we will see her back in the office in 1 week.
== END 2017-12-04 10:45 | disposition home or self-care (01) ==
LOC: ER 22:46 → 2ND 22:46
PROVIDERS: ADMIT Internal Medicine Adolescent Medicine; ATTEND Internal Medicine Adolescent Medicine

== ENCOUNTER → 2018-01-08 14:58 | Outpatient (CLI) | payer MEDICARE, MEDICAID, SELFPAY ==
[2018-01-08 15:32] LABS: Basophils # 0.1 K/mm3 (0-0.2); Basophils % 1.1 % (0.1-2.0); Eosinophils # 0.3 K/mm3 (0.0-0.4); Hematocrit 37.2 % (37.0-47.0); Hemoglobin 12.4 g/dL (12.2-16.2); Lymphocytes # 2.3 K/mm3 (0.7-4.5); Lymphocytes % 38.9 K/mm3 (10-50); Mean Corpuscular HGB Conc 33.4 g/dL (31.8-35.4); Mean Corpuscular Hemoglobin 29.7 pg (27.0-31.2); Mean Platelet Volume 6.9 fl (7.4-10.4); Monocytes # 0.3 K/mm3 (0.1-1.0); Monocytes % 5.8 % (1.7-9.3); Neutrophils # 2.9 K/mm3 (1.8-7.8); Neutrophils % 49.2 % (37.0-80.0); Platelet Count 347 K/mm3 (142-424); Red Blood Count 4.18 M/mm3 (4.20-5.40); Red Cell Distribution Width 13.7 % (11.5-17.5); White Blood Count 5.9 K/mm3 (4.8-10.8)
[2018-01-08 16:17] LABS: Alanine Aminotransferase 24 U/L (12-78); Albumin Level 4.4 gm/dL (3.4-5.0); Albumin/Globulin Ratio 1.3 (1.1-1.8); Alkaline Phosphatase 82 U/L (46-116); Anion Gap 14.4 mEq/L (5-15); Aspartate Amino Transferase 31 U/L (15-37); Bilirubin,Total 0.3 mg/dL (0.2-1.0); Blood Urea Nitrogen 23 mg/dL (7-18); Calcium 8.9 mg/dL (8.5-10.1); Carbon Dioxide 28 mmol/L (21.0-32.0); Chloride 101 mmol/L (98-107); Creatinine,Serum 1.33 mg/dL (0.55-1.02); Estimated Glomerular Filt Rate 42 ml/min (>60); GFR (African American) 50 ML/MIN (>60); Globulin 3.4 gm/dl (1.3-3.2); Glucose 140 mg/dL (74-106); Magnesium 1.1 mg/dL (1.4-2.2); Potassium 3.4 mmoL/L (3.5-5.1); Sodium 140 mmol/L (136-145); Thyroid Stimulating Hormone 3.58 uIU/ml (0.358-3.740); Total Protein,Serum 7.8 gm/dL (6.4-8.2)
[2018-01-08 17:03] LABS: Hemoglobin A1C 6.4 % (0.0-7.0)
== END ==
PROVIDERS: Visit Provider Internal Medicine Adolescent Medicine
DX: R00.0 Tachycardia, unspecified (principal); E11.9 Type 2 diabetes mellitus without complications; E03.9 Hypothyroidism, unspecified; I10 Essential (primary) hypertension
CPT/HCPCS: 36415; 80053; 83036; 83735; 84443; 85025

== ENCOUNTER → 2018-02-04 17:28 | Outpatient (CLI) | payer MEDICARE, MEDICAID, SELFPAY ==
[2018-02-04 18:12] LABS: Anion Gap 15.8 mEq/L (5-15); Blood Urea Nitrogen 12 mg/dL (7-18); Calcium 10.1 mg/dL (8.5-10.1); Carbon Dioxide 27 mmol/L (21.0-32.0); Chloride 102 mmol/L (98-107); Creatinine,Serum 1.05 mg/dL (0.55-1.02); Estimated Glomerular Filt Rate 55 ml/min (>60); GFR (African American) 66 ML/MIN (>60); Glucose 125 mg/dL (74-106); Magnesium 1.3 mg/dL (1.4-2.2); Potassium 3.8 mmoL/L (3.5-5.1); Sodium 141 mmol/L (136-145)
== END ==
PROVIDERS: Visit Provider Nurse Practitioner Family
DX: E83.42 Hypomagnesemia (principal); E87.6 Hypokalemia
CPT/HCPCS: 36415; 80048; 83735

== ENCOUNTER → 2018-03-20 15:21 | Outpatient (CLI) | payer MEDICARE, MEDICAID, SELFPAY ==
[2018-03-20 16:45] LABS: Alanine Aminotransferase 48 U/L (12-78); Albumin Level 3.8 gm/dL (3.4-5.0); Albumin/Globulin Ratio 1.3 (1.1-1.8); Alkaline Phosphatase 117 U/L (46-116); Anion Gap 13.2 mEq/L (5-15); Aspartate Amino Transferase 35 U/L (15-37); Bilirubin,Total 0.2 mg/dL (0.2-1.0); Blood Urea Nitrogen 13 mg/dL (7-18); Calcium 8.8 mg/dL (8.5-10.1); Carbon Dioxide 29 mmol/L (21.0-32.0); Chloride 103 mmol/L (98-107); Chol/HDL Ratio 5.2 (1-3.5); Cholesterol 160 mg/dL (140-200); Creatinine,Serum 0.93 mg/dL (0.55-1.02); Estimated Glomerular Filt Rate 63 ml/min (>60); GFR (African American) 76 ML/MIN (>60); Glucose 137 mg/dL (74-106); HDL Cholesterol 31 mg/dL (29-89); Magnesium 1.8 mg/dL (1.4-2.2); Potassium 4.2 mmoL/L (3.5-5.1); Sodium 141 mmol/L (136-145); Thyroid Stimulating Hormone 0.17 uIU/ml (0.358-3.740); Total Protein,Serum 6.8 gm/dL (6.4-8.2)
[2018-03-20 16:50] LABS: Triglycerides 456 mg/dL (30-200)
== END ==
PROVIDERS: PCP Nurse Practitioner Family; Visit Provider Nurse Practitioner Family
DX: E11.9 Type 2 diabetes mellitus without complications (principal); E03.9 Hypothyroidism, unspecified; I10 Essential (primary) hypertension
CPT/HCPCS: 36415; 80053; 80061; 83735; 84443

== ENCOUNTER → 2018-04-28 14:56 | Outpatient (POV) | payer MEDICARE, MEDICAID, SELFPAY | PROVIDERS: Visit Provider Nurse Practitioner Acute Care | DX: Z00.00 Encounter for general adult medical examination without abnormal findings (principal) ==

== ENCOUNTER → 2018-05-01 09:55 | Outpatient (CLI) | payer MEDICARE, MEDICAID, SELFPAY ==
--- NOTE | 2018-05-01 10:00 | US_ITS ---
US abdomen limited History:Upper abdominal pain Ordering Physician:Jacklyn Washington Patient Age: 53 years Comparison:None Findings: Pancreas:Unremarkable. No obvious mass or abnormal fluid collection. No ductal dilatation Liver:Diffuse increased echogenicity of the liver consistent with hepatic steatosis. Appropriate directional blood flow within the portal vein which is upper limits of normal in size at 12 mm. Right Kidney:Unremarkable. Normal size and echogenicity. No hydronephrosis Gallbladder: Gallbladder small and contracted with Gallbladder wall slightly thickened. No stones, pericholecystic fluid, or biliary dilatation is evident. Common bile duct is 3 mm. Impression: 1. Fatty liver. 2. Contracted appearing gallbladder with mild nonspecific thickening of the wall. No gallstones
== END ==
PROVIDERS: PCP Nurse Practitioner Family; Visit Provider Nurse Practitioner Acute Care
DX: R10.13 Epigastric pain (principal)
CPT/HCPCS: 76705

== ENCOUNTER → 2018-07-09 13:15 | Outpatient (CLI) | payer MEDICARE, MEDICAID, SELFPAY ==
[2018-07-09 14:37] LABS: Basophils # 0.1 K/mm3 (0-0.2); Basophils % 1.1 % (0.1-2.0); Eosinophils # 0.3 K/mm3 (0.0-0.4); Eosinophils % 3.6 % (0.1-12.0); Hematocrit 38.3 % (37.0-47.0); Hemoglobin 12.3 g/dL (12.2-16.2); Lymphocytes # 2.9 K/mm3 (0.7-4.5); Lymphocytes % 35.8 % (10-50); Mean Corpuscular Hemoglobin 28.7 pg (27.0-31.2); Mean Corpuscular Volume 89.9 fl (81-99); Mean Platelet Volume 7.2 fl (7.4-10.4); Monocytes # 0.4 K/mm3 (0.1-1.0); Monocytes % 5.5 % (1.7-9.3); Neutrophils # 4.3 K/mm3 (1.8-7.8); Platelet Count 267 K/mm3 (142-424); Red Blood Count 4.26 M/mm3 (4.20-5.40)
[2018-07-09 14:39] LABS: Anion Gap 12.9 mEq/L (5-15); Blood Urea Nitrogen 15 mg/dL (7-18); Calcium 9.5 mg/dL (8.5-10.1); Carbon Dioxide 32 mmol/L (21.0-32.0); Chloride 102 mmol/L (98-107); Creatinine,Serum 0.95 mg/dL (0.55-1.02); Estimated Glomerular Filt Rate 61 ml/min (>60); GFR (African American) 74 ML/MIN (>60); Glucose 115 mg/dL (74-106); Magnesium 1.7 mg/dL (1.4-2.2); Potassium 3.9 mmoL/L (3.5-5.1); Sodium 143 mmol/L (136-145)
== END ==
PROVIDERS: Visit Provider Nurse Practitioner Family
DX: E03.9 Hypothyroidism, unspecified (principal); E87.6 Hypokalemia; E83.42 Hypomagnesemia; Z93.3 Colostomy status
CPT/HCPCS: 36415; 80048; 83735; 85025

== ENCOUNTER → 2018-08-31 15:57 | Outpatient (CLI) | payer MEDICARE, MEDICAID, SELFPAY ==
--- NOTE | 2018-08-31 16:20 | XR_ITS ---
XR KUB HISTORY: Abdominal discomfort ITS.REASON: CONSTIPATION ORDERING PHYSICIAN: Referral Provider, PATIENT AGE: 53 years COMPARISON: KUB and upright abdomen 01/31/2017 FINDINGS: The bowel gas pattern is unremarkable. No obvious obstruction.. No abnormal calcifications are evident. No obvious renal or ureteral calculi.. No acute bony anomalies evident. There is a left-sided colostomy again noted. There are no findings of significant constipation. Again noted is a neurostimulator device with electrode leading to the mid upper sacrum. There is an IUD in place. IMPRESSION: Negative KUB, no significant constipation identified
== END ==
PROVIDERS: PCP Internal Medicine Adolescent Medicine; Visit Provider Internal Medicine
DX: K59.00 Constipation, unspecified (principal)
CPT/HCPCS: 74018

== ENCOUNTER → 2018-09-10 17:33 | Outpatient (CLI) | payer MEDICARE, MEDICAID, SELFPAY ==
[2018-09-10 17:40] LABS: Adenovirus F 40/41, stool Not Detected (NotDetected); Astrovirus Not Detected (NotDetected); Campylobacter Not Detected (NotDetected); Clostridium Difficile A/B, PCR Not Detected (NotDetected); Cryptosporidium Not Detected (NotDetected); Cyclospora Cayetanesis Not Detected (NotDetected); Entamoeba histolytica Not Detected (NotDetected); Enteroaggregative E coli Not Detected (NotDetected); Enteropathogenic E coli Not Detected (NotDetected); Enterotoxigenic E coli Not Detected (NotDetected); Giardia lamblia Not Detected (NotDetected); Plesimonas Shigalloides, PCR Not Detected (NotDetected); Rotavirus A Not Detected (NotDetected); Salmonella, PCR Not Detected (NotDetected); Sapovirus Not Detected (NotDetected); Shiga-like toxin E coli Not Detected (NotDetected); Shigella Enterovasive E coli Not Detected (NotDetected); Vibrio Cholerae Not Detected (NotDetected); Vibrio, PCR Not Detected (NotDetected); Yersinia Entercolitica, PCR Not Detected (NotDetected)
--- NOTE | 2018-09-10 17:47 | XR_ITS ---
XR abdomen min 2V HISTORY: ITS.REASON: GASTROENTERITIS, FEVER AND CHILLS, ABD PAIN ORDERING PHYSICIAN: Sasha Odom PATIENT AGE: 53 years COMPARISON: 08/31/2018 FINDINGS: There is an IUD present as well as a neurostimulator device in the presacral region. Left lower quadrant ostomy is also noted. No intestinal structure free air. There are few scattered air-fluid levels in the right upper quadrant and pelvic region and left mid abdominal area. IMPRESSION: Nonspecific bowel gas pattern with a few scattered air-fluid levels. No evidence of intestinal obstruction..
[2018-09-10 17:50] LABS: Basophils % 0.2 % (0.1-2.0); Eosinophils # 0.2 K/mm3 (0.0-0.4); Eosinophils % 2.3 % (0.1-12.0); Hematocrit 42.5 % (37.0-47.0); Hemoglobin 14.1 g/dL (12.2-16.2); Lymphocytes # 0.5 K/mm3 (0.7-4.5); Lymphocytes % 4.7 % (10-50); Mean Corpuscular HGB Conc 33.1 g/dL (31.8-35.4); Mean Corpuscular Hemoglobin 29.7 pg (27.0-31.2); Mean Corpuscular Volume 89.8 fl (81-99); Mean Platelet Volume 7.1 fl (7.4-10.4); Monocytes # 0.2 K/mm3 (0.1-1.0); Monocytes % 2.4 % (1.7-9.3); Neutrophils # 9.2 K/mm3 (1.8-7.8); Neutrophils % 90.4 % (37.0-80.0); Platelet Count 254 K/mm3 (142-424); Red Blood Count 4.74 M/mm3 (4.20-5.40); Red Cell Distribution Width 14.1 % (11.5-17.5); White Blood Count 10.1 K/mm3 (4.8-10.8)
[2018-09-10 18:02] LABS: MANUAL DIFFERENTIAL MANUAL DIFFERENTIAL (MANUAL DIFF)
[2018-09-10 19:29] LABS: Eosinophils % 1 % (0-3); Lymphocytes % 5 % (10-50); Monocytes % 1 % (2-9); Neutrophils % 90 % (42-76); Total Cells Counted 100
[2018-09-10 19:30] LABS: Platelet Estimate Normal; RBC Morphology Normal
[2018-09-10 22:01] LABS: Norovirus Detected (NotDetected)
[2018-09-10 22:57] LABS: Alanine Aminotransferase 38 U/L (12-78); Albumin Level 4.5 gm/dL (3.4-5.0); Albumin/Globulin Ratio 1.3 (1.1-1.8); Alkaline Phosphatase 130 U/L (46-116); Anion Gap 17.6 mEq/L (5-15); Aspartate Amino Transferase 47 U/L (15-37); Bilirubin,Total 0.4 mg/dL (0.2-1.0); Blood Urea Nitrogen 15 mg/dL (7-18); Calcium 10.5 mg/dL (8.5-10.1); Carbon Dioxide 24 mmol/L (21.0-32.0); Chloride 100 mmol/L (98-107); Creatinine,Serum 1.04 mg/dL (0.55-1.02); Estimated Glomerular Filt Rate 55 ml/min (>60); GFR (African American) 67 ML/MIN (>60); Globulin 3.4 gm/dl (1.3-3.2); Glucose 188 mg/dL (74-106); Potassium 4.6 mmoL/L (3.5-5.1); Sodium 137 mmol/L (136-145); Total Protein,Serum 7.9 gm/dL (6.4-8.2)
== END ==
PROVIDERS: Visit Provider Nurse Practitioner Family
DX: K52.9 Noninfective gastroenteritis and colitis, unspecified (principal); R50.9 Fever, unspecified; R10.84 Generalized abdominal pain
CPT/HCPCS: 36415; 74019; 80053; 85007; 85025; 87506

== ENCOUNTER → 2018-09-29 14:29 | Outpatient (CLI) | payer MEDICARE, MEDICAID, SELFPAY ==
[2018-09-29 14:59] LABS: Basophils # 0.1 K/mm3 (0-0.2); Basophils % 1.1 % (0.1-2.0); Eosinophils # 0.4 K/mm3 (0.0-0.4); Eosinophils % 3.4 % (0.1-12.0); Hematocrit 38.6 % (37.0-47.0); Hemoglobin 13.2 g/dL (12.2-16.2); Lymphocytes # 2.8 K/mm3 (0.7-4.5); Lymphocytes % 27.4 % (10-50); Mean Corpuscular HGB Conc 34.1 g/dL (31.8-35.4); Mean Corpuscular Hemoglobin 29.9 pg (27.0-31.2); Mean Corpuscular Volume 87.7 fl (81-99); Mean Platelet Volume 6.9 fl (7.4-10.4); Monocytes # 0.6 K/mm3 (0.1-1.0); Neutrophils # 6.5 K/mm3 (1.8-7.8); Neutrophils % 62.2 % (37.0-80.0); Platelet Count 266 K/mm3 (142-424); Red Cell Distribution Width 13.7 % (11.5-17.5); White Blood Count 10.4 K/mm3 (4.8-10.8)
[2018-09-29 17:34] LABS: Alanine Aminotransferase 30 U/L (12-78); Albumin Level 4.1 gm/dL (3.4-5.0); Albumin/Globulin Ratio 1.2 (1.1-1.8); Alkaline Phosphatase 180 U/L (46-116); Anion Gap 15.8 mEq/L (5-15); Aspartate Amino Transferase 23 U/L (15-37); Bilirubin,Total 0.3 mg/dL (0.2-1.0); Blood Urea Nitrogen 20 mg/dL (7-18); Calcium 10.1 mg/dL (8.5-10.1); Carbon Dioxide 23 mmol/L (21.0-32.0); Chloride 102 mmol/L (98-107); Chol/HDL Ratio 3.2 (1-3.5); Cholesterol 109 mg/dL (140-200); Creatinine,Serum 1.05 mg/dL (0.55-1.02); Estimated Glomerular Filt Rate 55 ml/min (>60); GFR (African American) 66 ML/MIN (>60); Globulin 3.4 gm/dl (1.3-3.2); Glucose 122 mg/dL (74-106); HDL Cholesterol 34 mg/dL (29-89); LDL Cholesterol 27 mg/dL (0-130); Magnesium 1.8 mg/dL (1.4-2.2); Potassium 4.8 mmoL/L (3.5-5.1); Sodium 136 mmol/L (136-145); Thyroid Stimulating Hormone 2.09 uIU/ml (0.358-3.740); Total Protein,Serum 7.5 gm/dL (6.4-8.2); Triglycerides 238 mg/dL (30-200); VLDL Cholesterol 48 mg/dL (0-40)
[2018-09-29 17:39] LABS: Hemoglobin A1C 5.8 % (0.0-7.0)
[2018-10-01 12:44] LABS: Vitamin B12 1248 pg/mL (232-1245)
== END ==
PROVIDERS: Visit Provider Nurse Practitioner Family
DX: K31.84 Gastroparesis (principal); E11.9 Type 2 diabetes mellitus without complications; E78.5 Hyperlipidemia, unspecified; E03.9 Hypothyroidism, unspecified; I10 Essential (primary) hypertension; E83.42 Hypomagnesemia; Z79.84 Long term (current) use of oral hypoglycemic drugs; Z72.0 Tobacco use
CPT/HCPCS: 36415; 80053; 80061; 82607; 83036; 83735; 84443; 85025

== ENCOUNTER → 2019-01-28 15:03 | Outpatient (CLI) | payer MEDICARE, MEDICAID, SELFPAY ==
[2019-01-28 16:43] LABS: Basophils # 0.1 K/mm3 (0-0.2); Basophils % 1.1 % (0.1-2.0); Eosinophils # 0.3 K/mm3 (0.0-0.4); Eosinophils % 4.8 % (0.1-12.0); Hematocrit 36.8 % (37.0-47.0); Hemoglobin 11.9 g/dL (12.2-16.2); Lymphocytes # 2.3 K/mm3 (0.7-4.5); Lymphocytes % 36.8 % (10-50); Mean Corpuscular HGB Conc 32.5 g/dL (31.8-35.4); Mean Corpuscular Hemoglobin 29.2 pg (27.0-31.2); Mean Corpuscular Volume 89.9 fl (81-99); Mean Platelet Volume 6.7 fl (7.4-10.4); Monocytes # 0.4 K/mm3 (0.1-1.0); Monocytes % 6.2 % (1.7-9.3); Neutrophils # 3.2 K/mm3 (1.8-7.8); Neutrophils % 51.3 % (37.0-80.0); Platelet Count 253 K/mm3 (142-424); Red Blood Count 4.09 M/mm3 (4.20-5.40); Red Cell Distribution Width 14.1 % (11.5-17.5); White Blood Count 6.2 K/mm3 (4.8-10.8)
[2019-01-28 18:10] LABS: Alanine Aminotransferase 14 U/L (12-78); Albumin Level 3.6 gm/dL (3.4-5.0); Albumin/Globulin Ratio 1.1 (1.1-1.8); Alkaline Phosphatase 101 U/L (46-116); Anion Gap 13.1 mEq/L (5-15); Aspartate Amino Transferase 17 U/L (15-37); Bilirubin,Total 0.2 mg/dL (0.2-1.0); Blood Urea Nitrogen 10 mg/dL (7-18); Carbon Dioxide 28 mmol/L (21.0-32.0); Chloride 103 mmol/L (98-107); Creatinine,Serum 1.02 mg/dL (0.55-1.02); Estimated Glomerular Filt Rate 56 ml/min (>60); GFR (African American) 68 ML/MIN (>60); Globulin 3.2 gm/dl (1.3-3.2); Glucose 119 mg/dL (74-106); Magnesium 1.8 mg/dL (1.4-2.2); Potassium 4.1 mmoL/L (3.5-5.1); Sodium 140 mmol/L (136-145); Thyroid Stimulating Hormone 5.69 uIU/ml (0.358-3.740); Total Protein,Serum 6.8 gm/dL (6.4-8.2)
== END ==
PROVIDERS: Visit Provider Nurse Practitioner Family
DX: L50.9 Urticaria, unspecified (principal); I10 Essential (primary) hypertension; E03.9 Hypothyroidism, unspecified
CPT/HCPCS: 36415; 80053; 83735; 84443; 85025

== ENCOUNTER → 2019-07-20 13:00 | Outpatient (CLI) | payer MEDICARE, MEDICAID, SELFPAY ==
[2019-07-20 13:27] LABS: Basophils # 0.1 K/mm3 (0-0.2); Basophils % 0.8 % (0.1-2.0); Eosinophils # 0.8 K/mm3 (0.0-0.4); Eosinophils % 7.1 % (0.1-12.0); Hematocrit 35.1 % (37.0-47.0); Hemoglobin 11.4 g/dL (12.2-16.2); Lymphocytes % 34.3 % (10-50); Mean Corpuscular HGB Conc 32.6 g/dL (31.8-35.4); Mean Corpuscular Hemoglobin 28.6 pg (27.0-31.2); Mean Corpuscular Volume 87.8 fl (81-99); Mean Platelet Volume 7.6 fl (7.4-10.4); Monocytes # 0.6 K/mm3 (0.1-1.0); Monocytes % 5.4 % (1.7-9.3); Neutrophils # 6.1 K/mm3 (1.8-7.8); Neutrophils % 52.3 % (37.0-80.0); Platelet Count 258 K/mm3 (142-424); Red Cell Distribution Width 13.8 % (11.5-17.5); White Blood Count 11.7 K/mm3 (4.8-10.8)
[2019-07-20 14:28] LABS: Alanine Aminotransferase 19 U/L (12-78); Albumin Level 3.8 gm/dL (3.4-5.0); Alkaline Phosphatase 124 U/L (46-116); Anion Gap 17.1 mEq/L (5-15); Aspartate Amino Transferase 28 U/L (15-37); Bilirubin,Total 0.2 mg/dL (0.2-1.0); Blood Urea Nitrogen 28 mg/dL (7-18); Calcium 9.2 mg/dL (8.5-10.1); Carbon Dioxide 22 mmol/L (21.0-32.0); Chloride 101 mmol/L (98-107); Chol/HDL Ratio 3.7 (1-3.5); Cholesterol 122 mg/dL (140-200); Creatinine,Serum 2.04 mg/dL (0.55-1.02); Estimated Glomerular Filt Rate 25 ml/min (>60); GFR (African American) 31 ML/MIN (>60); Glucose 113 mg/dL (74-106); HDL Cholesterol 33 mg/dL (29-89); LDL Cholesterol 24 mg/dL (0-130); Potassium 4.1 mmoL/L (3.5-5.1); Sodium 136 mmol/L (136-145); Total Protein,Serum 6.7 gm/dL (6.4-8.2); Triglycerides 323 mg/dL (30-200); VLDL Cholesterol 65 mg/dL (0-40)
[2019-07-20 14:32] LABS: Bilirubin,Direct < 0.1 mg/dL (0.0-0.2); Bilirubin,Indirect 0.1 mg/dL (0.0-0.9)
== END ==
PROVIDERS: Visit Provider Internal Medicine Cardiovascular Disease
DX: E11.9 Type 2 diabetes mellitus without complications (principal); F17.200 Nicotine dependence, unspecified, uncomplicated; F32.9 Major depressive disorder, single episode, unspecified; I10 Essential (primary) hypertension; I25.10 Atherosclerotic heart disease of native coronary artery without angina pectoris; N28.9 Disorder of kidney and ureter, unspecified; R06.00 Dyspnea, unspecified; R42 Dizziness and giddiness; Z95.5 Presence of coronary angioplasty implant and graft; Z79.84 Long term (current) use of oral hypoglycemic drugs
CPT/HCPCS: 36415; 80048; 80061; 80076; 85025

== ENCOUNTER → 2019-07-22 14:25 | Outpatient (CLI) | payer MEDICARE, MEDICAID, SELFPAY ==
[2019-07-22 14:49] LABS: Basophils # 0.1 K/mm3 (0-0.2); Eosinophils # 0.6 K/mm3 (0.0-0.4); Eosinophils % 5.9 % (0.1-12.0); Hematocrit 33.9 % (37.0-47.0); Hemoglobin 11.1 g/dL (12.2-16.2); Lymphocytes # 2.9 K/mm3 (0.7-4.5); Lymphocytes % 29.8 % (10-50); Mean Corpuscular HGB Conc 32.7 g/dL (31.8-35.4); Mean Corpuscular Hemoglobin 28.4 pg (27.0-31.2); Mean Platelet Volume 7.6 fl (7.4-10.4); Monocytes # 0.6 K/mm3 (0.1-1.0); Monocytes % 5.7 % (1.7-9.3); Neutrophils # 5.6 K/mm3 (1.8-7.8); Neutrophils % 57.7 % (37.0-80.0); Platelet Count 263 K/mm3 (142-424); Red Blood Count 3.89 M/mm3 (4.20-5.40); Red Cell Distribution Width 13.4 % (11.5-17.5); White Blood Count 9.7 K/mm3 (4.8-10.8)
[2019-07-22 15:46] LABS: Blood Urea Nitrogen 19 mg/dL (7-18); Calcium 9.1 mg/dL (8.5-10.1); Carbon Dioxide 27 mmol/L (21.0-32.0); Chloride 103 mmol/L (98-107); Creatinine,Serum 1.19 mg/dL (0.55-1.02); Estimated Glomerular Filt Rate 47 ml/min (>60); GFR (African American) 57 ML/MIN (>60); Glucose 162 mg/dL (74-106); Sodium 138 mmol/L (136-145)
== END ==
PROVIDERS: Visit Provider Internal Medicine Cardiovascular Disease
DX: E11.9 Type 2 diabetes mellitus without complications (principal); I10 Essential (primary) hypertension; I25.10 Atherosclerotic heart disease of native coronary artery without angina pectoris; R06.00 Dyspnea, unspecified; Z95.5 Presence of coronary angioplasty implant and graft
CPT/HCPCS: 36415; 80048; 85025

== ENCOUNTER → 2019-07-23 12:01 | Outpatient (CLI) | payer MEDICARE, MEDICAID, SELFPAY ==
--- NOTE | 2019-07-23 12:15 | XR_ITS ---
PROCEDURE: XR CHEST 2V CLINICAL HISTORY: LEUKOCYTOSIS Smoker COMPARISON: CXR CHEST(2 VIEWS-NOT PORTABLE) from 01/31/2017 CXR2V XR chest 2V from 11/25/2017 CXR2V XR chest 2V from 12/03/2017 CXR2V XR chest 2V from 05/19/2018 FINDINGS: The cardiomediastinal silhouette and pulmonary vascularity are within normal limits. The lungs are clear without infiltrates, suspicious nodules, or pleural effusions. There is evidence of old granulomatous disease with calcified nodes in the right paratracheal rib region and a calcified right upper lobe granuloma No acute bony abnormalities. IMPRESSION: No change with no acute finding Dictated by: Nathan Hoffman MD 07/23/2019 13:03 Electronically signed by Nathan Hoffman MD in [place] 07/23/2019 13:03
[2019-07-23 12:23] LABS: Basophils # 0.1 K/mm3 (0-0.2); Basophils % 0.7 % (0.1-2.0); Eosinophils # 0.5 K/mm3 (0.0-0.4); Eosinophils % 5.3 % (0.1-12.0); Hematocrit 33.9 % (37.0-47.0); Hemoglobin 11.2 g/dL (12.2-16.2); Lymphocytes # 3.2 K/mm3 (0.7-4.5); Lymphocytes % 34.9 % (10-50); Mean Corpuscular HGB Conc 32.9 g/dL (31.8-35.4); Mean Corpuscular Hemoglobin 28.5 pg (27.0-31.2); Mean Corpuscular Volume 86.6 fl (81-99); Mean Platelet Volume 7.6 fl (7.4-10.4); Monocytes # 0.6 K/mm3 (0.1-1.0); Monocytes % 6.6 % (1.7-9.3); Neutrophils # 4.8 K/mm3 (1.8-7.8); Neutrophils % 52.6 % (37.0-80.0); Platelet Count 283 K/mm3 (142-424); Red Blood Count 3.91 M/mm3 (4.20-5.40); Red Cell Distribution Width 13.6 % (11.5-17.5); White Blood Count 9.1 K/mm3 (4.8-10.8)
[2019-07-23 12:41] LABS: Blood Urea Nitrogen 11 mg/dL (7-18); Calcium 9.1 mg/dL (8.5-10.1); Carbon Dioxide 27 mmol/L (21.0-32.0); Chloride 106 mmol/L (98-107); Creatinine,Serum 1.03 mg/dL (0.55-1.02); Estimated Glomerular Filt Rate 56 ml/min (>60); GFR (African American) 67 ML/MIN (>60); Glucose 108 mg/dL (74-106); Magnesium 2.1 mg/dL (1.4-2.2); Sodium 140 mmol/L (136-145); Thyroid Stimulating Hormone 0.62 uIU/ml (0.358-3.740)
[2019-07-23 12:44] LABS: Ammonia 5 umol/L (19-54)
== END ==
PROVIDERS: Visit Provider Nurse Practitioner Family
DX: D72.829 Elevated white blood cell count, unspecified (principal); R41.0 Disorientation, unspecified; E03.9 Hypothyroidism, unspecified; N28.9 Disorder of kidney and ureter, unspecified; E83.42 Hypomagnesemia
CPT/HCPCS: 36415; 71046; 80048; 82140; 83735; 84443; 85025

== ENCOUNTER 2019-12-18 13:32 | Inpatient (IN) | payer MEDICARE, MEDICAID, SELFPAY ==
[2019-12-18 13:50] VITALS: BP 141/63; PULSE 72; RESP 16; TEMP 36.7; O2SAT 98; BMI 26.2
--- NOTE | 2019-12-18 13:58 | CT_ITS ---
PROCEDURE: CT LUMBAR SPINE WO CON CLINICAL HISTORY: lower back pain COMPARISON: No exams were available for comparison TECHNIQUE: Axial images obtained with sagittal and coronal reformats. All CT scans at the facility use one or more dose reduction, viz: automated exposure control, ma/kV adjustment per patient size (including targeted exams where dose is matched to indication, i.e. head), or iterative reconstruction technique. FINDINGS: Normal alignment. No fracture or dislocation. No lytic or blastic change. Bulging disc is present at L4-5 slightly eccentric toward the left with bilateral foraminal narrowing. There is mild facet ligamentum hypertrophy with resultant narrowing of the canal. At L5-S1 there is a left-sided spondylitic defect. There is mild facet and ligamentum hypertrophy with bulging disc with mild bilateral foraminal narrowing. There is some sclerosis of the SI joint on the right. Incidental note is made of a nonobstructing 6 mm stone in the mid polar region of the left kidney. There is also some mild nonspecific thickening of the transverse portion of the duodenum. IMPRESSION: 1. Bulging disc is present at L4-5 slightly eccentric toward the left with bilateral foraminal narrowing. There is mild facet ligamentum hypertrophy with resultant narrowing of the canal. 2. In at L5-S1 there is a left-sided spondylitic defect. There is mild facet and ligamentum hypertrophy with bulging disc with mild bilateral foraminal narrowing. 3. Left nephrolithiasis 4. Nonspecific thickening of the duodenum which could be related to nondistention or duodenitis Dictated by: Nathan Hoffman MD 12/18/2019 15:33 Electronically signed by Nathan Hoffman MD in [facility] 12/18/2019 15:33
[2019-12-18 14:20] VITALS: BP 143/64; PULSE 73; O2SAT 99
--- NOTE | 2019-12-18 14:57 | PC.NURSE ---
pt with rad.
--- NOTE | 2019-12-18 15:10 | HMH.EDGENADL ---
ED Disposition Clinical Impression: Acute renal failure Qualifiers: Acute renal failure type: unspecified Qualified Code(s): N17.9 - Acute kidney failure, unspecified Disposition: Admitted as Observation Condition on Discharge: Fair Referrals: Toshia Kline APRN [Primary Care Provider] - - Critical Care Critical Care Time: Yes Attestation: On 12/18/19, the high probability of a clinically significant, sudden or life threatening deterioration of the following system(s) required my full and direct attention, intervention and personal management. The time I documented below is in addition to time spent performing reported procedures but includes the following listed in this critical care notation. Vital system(s) involved:: Renal Failure My critical care processes included: Assessment & monitoring of V/S, Initial and Re-exams, Data Review/Interpretation, Coordinating Care, Medication Orders and management, Documentation Medical Decision Making - Rob Inquiry Pt receiving controlled substance: No Vital Signs: 12/18/19 13:50 12/18/19 14:20 12/18/19 15:25 Temperature 98.0 F Temperature Source Oral Pulse Rate [Right Brachial] 72 73 65 Respiratory Rate 16 Blood Pressure [Right Arm] 141/63 H 143/64 H 118/56 L Blood Pressure Mean [Right Arm] 89 90 76 Blood Pressure Source [Right Arm] Automatic Cuff Automatic Cuff Automatic Cuff Blood Pressure Position [Right Arm] Sitting Supine Sitting 02 Sat by Pulse Oximetry 98 99 99 Oxygen Delivery Method Room Air Room Air Room Air - Lab Data Lab Results 12/18/19 15:16: Urine Color Yellow, Urine Appearance Clear, Urine pH 5.5, Ur Specific [place] 1.020, Urine Protein Trace, Urine Glucose (UA) Negative, Urine Ketones Negative, Urine Blood Trace-l, Urine Nitrate Negative, Urine Bilirubin Negative, Urine Urobilinogen 0.2, Ur Leukocyte Esterase 1+ A, Urine WBC 5-10, Ur Squamous Epith Cells 3-5, Urine Bacteria Trace 12/18/19 15:41: WBC 11.0 H, RBC 4.32, Hgb 12.5, Hct 35.8 L, MCV 82.8, MCH 29.0, MCHC 35.0, RDW 14.4, Plt Count 262, MPV 7.1 L, Neut % (Auto) 69.5, Lymph % (Auto) 19.8, [place] % (Auto) 4.8, Eos % (Auto) 5.0, Baso % (Auto) 0.9, Neut # (Auto) 7.7, Lymph # (Auto) 2.2, [place] # (Auto) 0.5, Eos # (Auto) 0.6 H, Baso # (Auto) 0.1 12/18/19 15:41: Sodium 134 L, Potassium 5.4 H, Chloride 103, Carbon Dioxide 17 L, Anion Gap 19.4 H, BUN 44 H, Creatinine 3.40 H, Estimated Creat Clear 18, Estimated GFR 14 L*, Est GFR ( Amer) 17 L*, Glucose 84, Calcium 9.8, Total Bilirubin 0.4, AST 33, ALT 25, Alkaline Phosphatase 129 H, Total Protein 8.3 H, Albumin 4.8, Globulin 3.5 H, Albumin/Globulin Ratio 1.4 Result diagrams: 12/18/19 15:41 12/18/19 15:41 Orders (Tests/Meds): ED MEDICATIONS Generic Name Dose Route Start Last Admin Trade Name Freq PRN Reason Stop Dose Admin Ceftriaxone Sodium 1 gm/ 50 mls @ 100 mls/hr 12/18/19 16:15 12/18/19 16:43 Sodium Chloride IV 01/01/20 16:14 100 mls/hr Q24H KATERIN Administration Protocol ORDERS Category Date Time Status Urine Culture Stat Micro 12/18/19 15:16 Received - CT Data CT Scan: L-Spine Time Received: 15:[address] Reviewed: Yes: I have viewed the radiologist's interpretation Findings Narrative: PROCEDURE: CT LUMBAR SPINE WO CON CLINICAL HISTORY: lower back pain COMPARISON: No exams were available for comparison TECHNIQUE: Axial images obtained with sagittal and coronal reformats. All CT scans at the facility use one or more dose reduction, viz: automated exposure control, ma/kV adjustment per patient size (including targeted exams where dose is matched to indication, i.e. head), or iterative reconstruction technique. FINDINGS: Normal alignment. No fracture or dislocation. No lytic or blastic change. Bulging disc is present at L4-5 slightly eccentric toward the left with bilateral foraminal narrowing. There is mild facet ligamentum hypertrophy with resultant narrowing of the ca
[2019-12-18 15:15] LABS: Microscopic, Urine URINE MICROSCOPIC (MICROSCOPIC)
[2019-12-18 15:25] VITALS: BP 118/56; PULSE 65; O2SAT 99
[2019-12-18 15:38] LABS: Bacteria,Urine Trace /lpf
[2019-12-18 15:53] LABS: Basophils # 0.1 K/mm3 (0-0.2); Basophils % 0.9 % (0.1-2.0); Eosinophils # 0.6 K/mm3 (0.0-0.4); Hematocrit 35.8 % (37.0-47.0); Hemoglobin 12.5 g/dL (12.2-16.2); Lymphocytes # 2.2 K/mm3 (0.7-4.5); Lymphocytes % 19.8 % (10-50); Mean Corpuscular Volume 82.8 fl (81-99); Mean Platelet Volume 7.1 fl (7.4-10.4); Monocytes # 0.5 K/mm3 (0.1-1.0); Monocytes % 4.8 % (1.7-9.3); Neutrophils # 7.7 K/mm3 (1.8-7.8); Neutrophils % 69.5 % (37.0-80.0); Platelet Count 262 K/mm3 (142-424); Red Blood Count 4.32 M/mm3 (4.20-5.40); Red Cell Distribution Width 14.4 % (11.5-17.5)
--- NOTE | 2019-12-18 15:54 | PC.NURSE ---
Dr Kay speaking with Dr Salas at this time.
[2019-12-18 16:02] LABS: Appearance,Urine CLEAR (Clear); Bilirubin,Urine Negative (Negative); Blood, Urine TRACE-L (Negative); Color,Urine YELLOW (Yellow); Glucose,Urine (UA) Negative (Negative); Ketones,Urine Negative (Negative); Leukocyte Esterase,Urine 1+ (Negative); Nitrate,Urine Negative (Negative); PH,Urine 5.5 (5.0-8.5); Protein,Urine TRACE (Negative); Urobilinogen,Urine 0.2 EU/dl (0.2)
[2019-12-18 16:05] LABS: Chloride 103 mmol/L (98-107); Sodium 134 mmol/L (136-145)
[2019-12-18 16:06] LABS: Potassium 5.4 mmoL/L (3.5-5.1)
[2019-12-18 16:08] LABS: Alanine Aminotransferase 25 U/L (12-78); Alkaline Phosphatase 129 U/L (38-126); Anion Gap 19.4 mEq/L (5-15); Aspartate Amino Transferase 33 U/L (14-36); Bilirubin,Total 0.4 mg/dl (0.2-1.3); Blood Urea Nitrogen 44 mg/dl (7-17); Calcium 9.8 mg/dl (8.4-10.2); Carbon Dioxide 17 mmol/L (22.0-30.0); Creatinine Clearance Estimated 18 mL/min (50-200); Estimated Glomerular Filt Rate 14 ml/min (>60); GFR (African American) 17 ML/MIN (>60); Glucose 84 mg/dl (74-100)
[2019-12-18 16:09] LABS: Albumin Level 4.8 g/dl (3.5-5.0); Albumin/Globulin Ratio 1.4 (1.1-1.8); Globulin 3.5 g/dL (1.3-3.2); Total Protein,Serum 8.3 g/dl (6.3-8.2)
--- NOTE | 2019-12-18 16:57 | PC.NURSE ---
dr hong lay
[2019-12-18 17:33] VITALS: BMI 26.1
[2019-12-18 17:36] VITALS: BP 131/62; PULSE 64; RESP 16; TEMP 36.9; O2SAT 98
[2019-12-18 18:00] VITALS: BP 131/64; PULSE 63; RESP 18; TEMP 36.6; O2SAT 99
--- NOTE | 2019-12-18 19:10 | PC.NURSE ---
report given to pietro
[2019-12-18 20:00] VITALS: BP 117/49; PULSE 70; RESP 17; TEMP 36.7; O2SAT 99
--- NOTE | 2019-12-18 20:36 | PC.NURSE ---
Pt arrived to the unit around 1800. Pt complained of back pain and requested Percocet. Dr. Salas was contacted and gave orders for Percocet. No complaints of SOA. Lungs CTA. VSS. Call light within reach. Will continue to monitor.
[2019-12-18 21:17] LABS: POC Glucose,Bedside 92 (70-110)
--- NOTE | 2019-12-19 02:44 | PC.NURSE ---
Pt has c/o of pain in groin that radiated down right leg x1. Rated at 7 out of 10 on numeric scale. Medicated per AUG. Pt has been up to the bathroom x2 this shift. Pt's family brought home medications earlier this shift. Home medications are locked in the drawer. VSS. No complaints at this time. Will continue to monitor for any changes.
[2019-12-19 04:00] VITALS: BP 121/53; PULSE 78; RESP 18; TEMP 36.7; O2SAT 96
[2019-12-19 05:00] VITALS: BMI 26.2
--- NOTE | 2019-12-19 05:12 | PC.NURSE ---
This nurse walked into pt's room and smelled a strong cigarette odor. Pt was asked if she smoked cigarettes and she replied yes . Pt was then asked if she was smoking cigarettes in her room and she responded with yes, I thought we were allowed to smoke in the bathroom. This nurse along with BRYANNA RN educated the pt on this facility's smoking policy and educated the pt on the dangers of smoking inside the hospital. Pt stated she understood. Pt was asked if she had anymore cigarettes and pt stated that was my only one. BRYANNA DO asked the pt if she would like a nicotine patch and pt agreed. Nicotine patch was ordered and administered per AUG.
[2019-12-19 05:15] LABS: POC Glucose,Bedside 171 (70-110)
[2019-12-19 06:33] LABS: Basophils # 0.1 K/mm3 (0-0.2); Basophils % 0.7 % (0.1-2.0); Eosinophils # 0.5 K/mm3 (0.0-0.4); Eosinophils % 6.3 % (0.1-12.0); Hematocrit 32.1 % (37.0-47.0); Lymphocytes # 2.2 K/mm3 (0.7-4.5); Lymphocytes % 27.5 % (10-50); Mean Corpuscular Hemoglobin 28.3 pg (27.0-31.2); Mean Corpuscular Volume 85.7 fl (81-99); Monocytes # 0.5 K/mm3 (0.1-1.0); Monocytes % 6.8 % (1.7-9.3); Neutrophils # 4.6 K/mm3 (1.8-7.8); Neutrophils % 58.7 % (37.0-80.0); Platelet Count 195 K/mm3 (142-424); Red Blood Count 3.75 M/mm3 (4.20-5.40); Red Cell Distribution Width 14.5 % (11.5-17.5); White Blood Count 7.9 K/mm3 (4.8-10.8)
[2019-12-19 06:34] LABS: Hemoglobin 10.6 g/dL (12.2-16.2)
[2019-12-19 06:37] LABS: Chloride 111 mmol/L (98-107)
[2019-12-19 06:38] LABS: Potassium 4.1 mmoL/L (3.5-5.1); Sodium 138 mmol/L (136-145)
[2019-12-19 06:41] LABS: Anion Gap 12.1 mEq/L (5-15); Blood Urea Nitrogen 39 mg/dl (7-17); Carbon Dioxide 19 mmol/L (22.0-30.0); Creatinine Clearance Estimated 24 mL/min (50-200); Estimated Glomerular Filt Rate 20 ml/min (>60); GFR (African American) 24 ML/MIN (>60); Glucose 134 mg/dl (74-100)
[2019-12-19 06:55] LABS: Calcium 8.1 mg/dl (8.4-10.2)
[2019-12-19 07:36] VITALS: BMI 27.0
[2019-12-19 08:00] VITALS: BP 122/58; PULSE 80; RESP 17; TEMP 36.8; O2SAT 98
--- NOTE | 2019-12-19 08:44 | HMH.HP ---
*Admission Date: 12/18/19 *Chief complaint: back pain, confusion *History of present illness: Complains of lower back pain into both legs, right worse than left. Today she says it hurts so bad when she tries to stand that she has been unable to stand and fell at home. When walking to the bathroom in the emergency room she had to sit down in a chair to keep from falling. Denies numbness or weakness of the legs. She has chronic urinary incontinence and has a neural stimulator because of that. No recent change. She has a colostomy. Denies fever. Denies abdominal pain. Has a long history of back problems, but says that she is not on any medications for her back and has not had any recent problems, it seems to have gotten better over the years. The patient seems drowsy in the emergency room. Her daughter states she does seem more out of it today . Patient denies taking any excess medication. She is not on any pain medication. She is diabetic. She has not checked her blood sugar today or yesterday. Above note per ER. Of note, patient was seen in our offices last week, diagnosed with right-sided sciatica although she cannot remember being told this. She was prescribed steroids, PT appointment was set up. She is not gone to PT yet, and because of a lot of things was unable to peanut picker her steroid prescription. [facility] History I have reviewed the patient's past medical history: Yes Medical History: Reports:: Anxiety, Arrhythmia, Chronic Obstructive Pulmonary Disease (COPD), Coronary Artery Disease, Depression, Diabetes Mellitus Type 2, Hyperlipidemia, Hypertension, Lung Disease, Kidney Stones, Palpitations, Renal Disease Denies:: Cancer, Diabetes Mellitus Type 1, Internal Pacemaker, MRSA, Seizures *Have you ever received a pneumonia vaccine?: Yes *Have you received a flu vaccine this season?: Yes Other Medical History: Reports: Hypothyroidism, Sinus Problems, Thyroid Disease Other Surgeries: Yes: No Previous Surgery, Cardiac Catheterization, Colonoscopy, Coronary Stent. No: Pacemaker Amputation: No Fractures: No - *Social History Last grade of school completed: Some college Smoking Status: Current every day smoker Tobacco Type: cigarettes # Packs/Day (cigarettes): 1 Alcohol Intake: never Alcohol Intake Frequency:: other Substance Use Type: denies use *Occupational Status:: disabled Housing: house Household Members: none *Travel in the last 8 weeks: None - Psychiatric History Pschychiatric History:: Reports:: Anxiety, Depression Family Hx:: Coronary Artery Disease, Diabetes, Heart Attack, Hyperlipidemia, Stroke Review of Systems - Review of Systems Review of systems:: pertinent systems reviewed and negative unless documented below - *Neurologic Reports abnormal walking Meds Home Medications Medication Instructions Recorded Confirmed Type albuterol sulfate 90 mcg/actuation 2 puff INHALATION Q4-6H PRN 10/16/17 12/18/19 History aerosol inhaler lamotrigine 100 mg tablet 100 mg PO BID 10/16/17 12/18/19 History metformin 1,000 mg tablet 1,000 mg PO BID 10/16/17 12/18/19 History venlafaxine 150 mg 300 mg PO DAILY cap 10/16/17 12/18/19 History capsule,extended release 24 hr buspirone 10 mg tablet 10 mg PO BID 10/17/17 12/18/19 History cholecalciferol (vitamin D3) 50 2,000 unit PO DAILY cap 10/17/17 12/18/19 History mcg (2,000 unit) capsule fluticasone 100 mcg-salmeterol 50 1 puff INHALATION BID PRN 05/13/18 12/18/19 History mcg/dose blistr powdr for inhalation nitroglycerin 0.4 mg sublingual 0.4 mg SUBLINGUAL Q5-15M PRN #25 05/13/18 12/18/19 Rx tablet tab potassium chloride 20 mEq 40 meq PO DAILY tab 05/13/18 12/18/19 History tablet,extended release Clopidogrel Bisulfate [Plavix 75mg 75 mg PO DAILY 05/19/18 12/18/19 History Tab] alprazolam 1 mg tablet 1 mg PO TID PRN tab 07/02/19 12/18/19 History hydroxyzine HCl 25 mg tablet 25 mg PO TID PRN tab 07/02/19 12/18/19 History blood sugar
--- NOTE | 2019-12-19 08:44 | PC.NURSE ---
Rounded with Dr. Salas. No changes in pain med for back pain. Apply heating pad to back prn and get OOB to chair. Pt has bladder infection. Will start IV abx as well as IV steroids. Pt will possibly go home tomorrow.
--- NOTE | 2019-12-19 09:53 | P.CONPHA_ITS ---
[facility] Pharmacy VTE Monitoring - Patient Demographics Admission date: 12/19/19 Report Date: 12/19/19 Time: 09:53 Allergies/Adverse Reactions: Patient Allergies aripiprazole [From ABILIFY] Allergy (Unknown, Verified 07/15/19 13:32) citalopram [From CELEXA] Allergy (Unknown, Verified 07/15/19 13:32) UNKNOWN hydrocodone [From LORTAB] Allergy (Unknown, Verified 07/15/19 13:32) losartan Allergy (Unknown, Verified 08/10/19 15:05) olanzapine [From ZYPREXA] Allergy (Unknown, Verified 07/15/19 13:32) quetiapine [From SEROQUEL] Allergy (Unknown, Verified 07/15/19 13:32) Sulfa (Sulfonamide Antibiotics) [SULFA (SULFONAMIDE ANTIBIOTICS)] Allergy (Unknown, Verified 07/15/19 13:32) acetaminophen [From [place]] Allergy (Verified 07/15/19 13:32) tramadol Allergy (Verified 07/15/19 13:32) Height: 1.52 m Weight: 62.4 kg Patient Problems: Current Active Problems Acute renal failure (Acute) Acute kidney injury (Acute) Right sided sciatica (Acute) - VTE Risk Labs: VTE Related Lab Results Hgb 10.6 g/dL (12.2-16.2) L D 12/19/19 06:25 Hct 32.1 % (37.0-47.0) L 12/19/19 06:25 Plt Count 195 K/mm3 (142-424) D 12/19/19 06:25 BUN 39 mg/dl (7-17) H 12/19/19 06:25 Creatinine 2.50 mg/dl (0.52-1.04) H D 12/19/19 06:25 Estimated Creat Clear 24 mL/min (50-200) 12/19/19 06:25 Was VTE Risk Assessment Performed: Yes VTE Score: 7 VTE Risk Level: Moderate Risk - Prophylaxis Types of VTE Prophylaxis: TEDS Knee High (MARTIN HOSE ORDERED) Location of Applied Device: Bilateral Lower Extremeties
[2019-12-19 11:12] LABS: POC Glucose,Bedside 132 (70-110)
[2019-12-19 15:26] VITALS: BP 118/58; PULSE 73; RESP 17; TEMP 36.9; O2SAT 91
[2019-12-19 16:35] LABS: POC Glucose,Bedside 244 (70-110)
--- NOTE | 2019-12-19 17:24 | PC.NURSE ---
Pt up to chair the entire shift. Ambulates to bathroom without assistance. Pain is better controlled since adding Solumedrol but blood sugars have increased as a result requiring SSI coverage. Tolerates a diabetic diet. VSS. No edema noted. No issues with colostomy. Plan is for discharge home tomorrow.
[2019-12-19 20:00] VITALS: BP 117/58; PULSE 73; RESP 18; TEMP 36.7; O2SAT 98
[2019-12-19 20:39] LABS: POC Glucose,Bedside 172 (70-110)
[2019-12-20 03:35] VITALS: BP 111/57; PULSE 77; RESP 17; TEMP 36.9; O2SAT 93
--- NOTE | 2019-12-20 04:18 | PC.NURSE ---
Pt has rested much better this shift. Pt c/o of shakiness and anxiety at the beginning of shift. PRN Xanax administered per AUG. Pt c/o back pain x1 this shift. Medication administered per AUG. Pt received a shower this shift. No complaints at this time. Call light is within reach. Will continue to monitor.
[2019-12-20 05:00] VITALS: BMI 27.6
[2019-12-20 05:32] LABS: POC Glucose,Bedside 158 (70-110)
[2019-12-20 06:07] LABS: Basophils % 0.1 % (0.1-2.0); Eosinophils % 0.3 % (0.1-12.0); Lymphocytes # 0.7 K/mm3 (0.7-4.5); Lymphocytes % 11.6 % (10-50); Mean Corpuscular HGB Conc 33.6 g/dL (31.8-35.4); Mean Corpuscular Hemoglobin 28.2 pg (27.0-31.2); Mean Corpuscular Volume 83.9 fl (81-99); Mean Platelet Volume 7.2 fl (7.4-10.4); Monocytes # 0.1 K/mm3 (0.1-1.0); Monocytes % 1.5 % (1.7-9.3); Neutrophils # 4.9 K/mm3 (1.8-7.8); Neutrophils % 86.5 % (37.0-80.0); Platelet Count 175 K/mm3 (142-424); Red Blood Count 3.23 M/mm3 (4.20-5.40); Red Cell Distribution Width 14.7 % (11.5-17.5); White Blood Count 5.7 K/mm3 (4.8-10.8)
[2019-12-20 06:11] LABS: Hematocrit 27.1 % (37.0-47.0); Hemoglobin 9.1 g/dL (12.2-16.2)
[2019-12-20 06:12] LABS: MANUAL DIFFERENTIAL MANUAL DIFFERENTIAL (MANUAL DIFF)
[2019-12-20 06:16] LABS: Alanine Aminotransferase 13 U/L (12-78); Albumin Level 3.7 g/dl (3.5-5.0); Albumin/Globulin Ratio 1.4 (1.1-1.8); Alkaline Phosphatase 100 U/L (38-126); Anion Gap 10.8 mEq/L (5-15); Aspartate Amino Transferase 28 U/L (14-36); Blood Urea Nitrogen 29 mg/dl (7-17); Calcium 7.7 mg/dl (8.4-10.2); Carbon Dioxide 20 mmol/L (22.0-30.0); Chloride 110 mmol/L (98-107); Creatinine Clearance Estimated 58 mL/min (50-200); Estimated Glomerular Filt Rate 52 ml/min (>60); GFR (African American) 62 ML/MIN (>60); Globulin 2.7 g/dL (1.3-3.2); Glucose 158 mg/dl (74-100); Potassium 4.8 mmoL/L (3.5-5.1); Sodium 136 mmol/L (136-145); Total Protein,Serum 6.4 g/dl (6.3-8.2)
[2019-12-20 06:18] LABS: Bilirubin,Total 0.1 mg/dl (0.2-1.3)
[2019-12-20 06:20] LABS: Eosinophils % 1 % (0-3); Lymphocytes % 6 % (10-50); Neutrophils % 90 % (42-76); Platelet Estimate Normal; RBC Morphology Normal; Rouleaux 1+; Total Cells Counted 100
--- NOTE | 2019-12-20 07:45 | HMH.DCSUM ---
General - General Admission date:: 12/18/19 Discharge date: 12/20/19 HPI HPI: Complains of lower back pain into both legs, right worse than left. Today she says it hurts so bad when she tries to stand that she has been unable to stand and fell at home. When walking to the bathroom in the emergency room she had to sit down in a chair to keep from falling. Denies numbness or weakness of the legs. She has chronic urinary incontinence and has a neural stimulator because of that. No recent change. She has a colostomy. Denies fever. Denies abdominal pain. Has a long history of back problems, but says that she is not on any medications for her back and has not had any recent problems, it seems to have gotten better over the years. The patient seems drowsy in the emergency room. Her daughter states she does seem more out of it today . Patient denies taking any excess medication. She is not on any pain medication. She is diabetic. She has not checked her blood sugar today or yesterday. Above note per ER. Of note, patient was seen in our offices last week, diagnosed with right-sided sciatica although she cannot remember being told this. She was prescribed steroids, PT appointment was set up. She is not gone to PT yet, and because of a lot of things was unable to orange picker her steroid prescription. Hospital Course Hospital Course: Patient was admitted to the hospital, hydrated over the next couple of days and her kidney function improved, creatinine returned to normal this morning. She feels much better. She is had no requirements for Percocet over the past 24 hours after she had low-dose prednisone therapy. She feels much improved, no urine output symptoms. Good p.o. intake. Able to get up and move to the chair in the bed without problems. Plan will be to discharge home with Saranya to finish treatment for UTI. We will give her low-dose prednisone for a week to help with the sciatica symptoms. She will follow-up in our office a week from Saturday. Encouraged to avoid all NSAIDs [id number]. Objective Vital signs: Temp Pulse Resp BP Pulse Ox 98.4 F 77 17 111/57 L 93 L 12/20/19 03:35 12/20/19 03:35 12/20/19 03:35 12/20/19 03:35 12/20/19 03:35 no acute distress - *Routine HEENT Exam Head: Present: normocephalic Eye: Present: EOMI, PERRL ENT: Present: mucous membranes moist - *Routine Neck Exam Present: supple - *Routine Respiratory Exam Present: CTA bilaterally - *Routine Cardiovascular Exam Present: RRR - *Routine Abdominal Exam Present: soft, normoactive bowel sounds. Absent: tenderness - *Routine Extremities Exam Absent: cyanosis, clubbing, edema - *Routine Skin Exam Present: warm. Absent: rash - Detailed Eye Exam Eyelids: Bilateral normal inspection Results Labs on day of discharge: Labs from last 24 hours 12/20/19 12/20/19 12/20/19 05:53 05:53 05:22 WBC 5.7 D RBC 3.23 L Hgb 9.1 L D Hct 27.1 L MCV 83.9 MCH 28.2 MCHC 33.6 RDW 14.7 Plt Count 175 MPV 7.2 L Neut % (Auto) 86.5 H Lymph % (Auto) 11.6 [place] % (Auto) 1.5 L Eos % (Auto) 0.3 Baso % (Auto) 0.1 Neut # (Auto) 4.9 Lymph # (Auto) 0.7 [place] # (Auto) 0.1 Eos # (Auto) 0.0 Baso # (Auto) 0.0 Total Counted 100 Neutrophils % (Manual) 90 H Band Neutrophils % 3.0 Lymphocytes % (Manual) 6 L Eosinophils % (Manual) 1 Platelet Estimate Normal RBC Morphology Normal [place]le[place] 1+ Sodium 136 Potassium 4.8 Chloride 110 H Carbon Dioxide 20 L Anion Gap 10.8 BUN 29 H D Creatinine 1.10 H D Estimated Creat Clear 58 Estimated GFR 52 L Est GFR ( Amer) 62 D Glucose 158 H POC Glucose 158 H Calcium 7.7 L Total Bilirubin 0.1 L AST 28 ALT 13 D Alkaline Phosphatase 100 Total Protein 6.4 Albumin 3.7 Globulin 2.7 Albumin/Globulin Ratio 1.4 07
[2019-12-20 08:00] VITALS: BP 109/59; PULSE 80; RESP 19; TEMP 36.9; O2SAT 95
== END 2019-12-20 09:23 | disposition home or self-care (01) | DRG 683 ==
LOC: ER 14:13 → 2ND 17:22
PROVIDERS: Admitting Provider Internal Medicine Adolescent Medicine; Emergency Provider Emergency Medicine; PCP Nurse Practitioner Family; Visit Provider Internal Medicine Adolescent Medicine
DX: N39.0 Urinary tract infection, site not specified (principal); M54.31 Sciatica, right side; N17.9 Acute kidney failure, unspecified; E11.9 Type 2 diabetes mellitus without complications; J44.9 Chronic obstructive pulmonary disease, unspecified; I25.10 Atherosclerotic heart disease of native coronary artery without angina pectoris; E03.9 Hypothyroidism, unspecified; I10 Essential (primary) hypertension; Z95.5 Presence of coronary angioplasty implant and graft; Z72.0 Tobacco use; Z79.51 Long term (current) use of inhaled steroids; Z79.82 Long term (current) use of aspirin; Z79.84 Long term (current) use of oral hypoglycemic drugs; Z79.01 Long term (current) use of anticoagulants; Z88.2 Allergy status to sulfonamides; Z88.8 Allergy status to other drugs, medicaments and biological substances; B96.20 Unspecified Escherichia coli [E. coli] as the cause of diseases classified elsewhere; R32 Unspecified urinary incontinence; Z96.82 Presence of neurostimulator
CPT/HCPCS: 36415; 72131; 80048; 80053; 81001; 82962; 85007; 85025; 87086; 87088; 87186; 94640; 96365; 96367; 99284; J2405

== ENCOUNTER → 2019-12-28 17:19 | Outpatient (CLI) | payer MEDICARE, MEDICAID, SELFPAY ==
--- NOTE | 2019-12-28 17:27 | XR_ITS ---
PROCEDURE: XR HIP RT 2-3V W/PELVIS CLINICAL INDICATION: RIGHT HIP PAIN COMPARISON: No exams were available for comparison FINDINGS: No fracture or dislocation is evident. No significant degenerative change. No lytic or blastic change. Unremarkable soft tissues. There is a epidural stimulator device overlying the mid aspect of the left sacrum with the generator overlying the right iliac crest region. IMPRESSION: Negative right hip Dictated by: Nathan Hoffman MD 12/28/2019 18:22 Electronically signed by Nathan Hoffman MD in [place] 12/28/2019 18:22
[2019-12-28 17:46] LABS: Basophils # 0.1 K/mm3 (0-0.2); Basophils % 0.6 % (0.1-2.0); Eosinophils # 0.8 K/mm3 (0.0-0.4); Eosinophils % 5.8 % (0.1-12.0); Hematocrit 38.8 % (37.0-47.0); Hemoglobin 12.9 g/dL (12.2-16.2); Lymphocytes # 4.6 K/mm3 (0.7-4.5); Mean Corpuscular HGB Conc 33.2 g/dL (31.8-35.4); Mean Corpuscular Hemoglobin 28.5 pg (27.0-31.2); Mean Corpuscular Volume 85.9 fl (81-99); Mean Platelet Volume 7.3 fl (7.4-10.4); Monocytes # 0.6 K/mm3 (0.1-1.0); Monocytes % 4.9 % (1.7-9.3); Neutrophils # 6.8 K/mm3 (1.8-7.8); Neutrophils % 52.6 % (37.0-80.0); Platelet Count 349 K/mm3 (142-424); Red Blood Count 4.52 M/mm3 (4.20-5.40); Red Cell Distribution Width 14.8 % (11.5-17.5); White Blood Count 12.9 K/mm3 (4.8-10.8)
[2019-12-28 18:51] LABS: Chloride 93 mmol/L (98-107)
[2019-12-28 18:52] LABS: Potassium 4.8 mmoL/L (3.5-5.1); Sodium 137 mmol/L (136-145)
[2019-12-28 18:54] LABS: Blood Urea Nitrogen 22 mg/dl (7-17); Estimated Glomerular Filt Rate 58 ml/min (>60); GFR (African American) 70 ML/MIN (>60)
[2019-12-28 18:55] LABS: Anion Gap 16.8 mEq/L (5-15); Carbon Dioxide 32 mmol/L (22.0-30.0); Glucose 87 mg/dl (74-100)
== END ==
PROVIDERS: Visit Provider Nurse Practitioner Family
DX: N17.9 Acute kidney failure, unspecified (principal)
CPT/HCPCS: 36415; 73502; 80048; 85025

== ENCOUNTER → 2020-01-07 13:04 | Outpatient (CLI) | payer MEDICARE, MEDICAID, SELFPAY ==
--- NOTE | 2020-01-07 13:09 | XR_ITS ---
PROCEDURE: XR KNEE RT 3V CLINICAL INDICATION: RT KNEE PAIN COMPARISON: No exams were available for comparison FINDINGS: No fracture or dislocation. No lytic or blastic change. There is normal mineralization. The joint spaces are well-preserved. No significant degenerative/arthritic changes. No erosive changes evident. Other findings:None. IMPRESSION: No acute findings. Dictated by: Nathan Hoffman MD 01/07/2020 15:30 Electronically signed by Nathan Hoffman MD in [place] 01/07/2020 15:30
== END ==
PROVIDERS: PCP Internal Medicine Adolescent Medicine; Visit Provider Internal Medicine Adolescent Medicine
DX: M25.561 Pain in right knee (principal)
CPT/HCPCS: 73562

== ENCOUNTER → 2020-01-14 08:30 | Outpatient (POV) | payer MEDICARE, MEDICAID, SELFPAY ==
[2020-01-14 09:09] VITALS: BP 154/70; PULSE 75; RESP 18; O2SAT 98; BMI 26.2
--- NOTE | 2020-01-14 09:41 | HMH.PMCON ---
Assessment and Plan (1) Low back pain Current visit: Yes Status: Chronic Category: Medical Code(s): M54.5 - Low back pain (2) Sacroiliitis Current visit: Yes Status: Acute Category: Medical Code(s): M46.1 - Sacroiliitis, not elsewhere classified - Assessment and plan all Dx Assessment and Plan for all problems:: Patient, daughter, and I did discuss her CT findings. Patient does have sclerotic right SI joint. Patient does have classic symptoms of right sacroiliitis. Given her symptoms and imaging, the patient and I have discussed a right SI joint injection. We will see if she gets relief with the injection. She and I also discussed the corner lock procedure. I do think this would be beneficial for the patient. She has a positive RodrigoDyloner's, distraction test. We will see her back in the clinic after her injection to reassess her symptoms. She has been instructed to contact the clinic if she has any concerns before next appointment. The patient and I specifically discussed risk factors for COVID19. These risks include, but are not limited to age greater than 60, heart or lung disease, diabetes, immunosuppression, and travel. We also discussed NSAIDs may worsen COVID19 infection or symptoms. Patient should not use NSAIDs to treat COVID19 signs or symptoms. Patient was also informed that any type of corticosteroid of any form (oral or injection) will decrease the patient's immune system response and may increase the likelihood of COVID19 infection [address] symptoms[address]. Conley has reviewed this note and agrees with this plan of care. This note was dictated using voice recognition software and make contain errors or omissions. HPI - Data of Consult Patient: new to practice Consult date: 01/14/20 Requesting Physician: Roselia Gibbs APRN Primary Care Provider: Avelino Salas MD - Consult Narrative Reason for consult: Back pain, right groin pain, right leg pain with numbness and tingling History of present illness: Ms. Flor is a 54 year old female who presents today for consultation for low back pain with radiation into her right groin right hip and right leg. She states she has numbness and tingling in her right leg. Patient rates her pain an 8 out of 10. She says that she has chronic low back pain greater than 25 years. She says that she injured her back at her workplace. She also reports to have fallen on ice many years ago worsening her back pain. She does say that she is having acute pain that presented approximately a month ago that has progressively gotten worse. She says that the pain is intense in nature and constant. She says leaning forward does give her relief. She says laying flat also gives her relief. Patient says heat has helped. She is unable to have an MRI due to a Medtronic inner stem for constipation. Unfortunately she says that the InterStim did not give her any relief and subsequently the patient did have to get a colostomy. Patient says that she was also told she has an autonomic nervous system disorder. Patient is concerned that her pain is due to the new diagnosis of ANS. She did undergo a CT scan of her low back area at her last visit to the emergency room. Patient did have to go to the emergency room due to severe pain in her low back approximately a month ago. Patient was on ibuprofen, however was stopped due to renal insufficiency. She is currently taking Tylenol. Her provider did also prescribe her cyclobenzaprine and gabapentin. Patient says that the cyclobenzaprine is not giving her any relief and she is since stopped taking gabapentin. CC: Roselia Gibbs APRN [facility] History I have reviewed the patient's past medical history: Yes Medical History: Reports:: Anxiety, Arrhythmia, Chronic Obstructive Pulmonary Disease (COPD), Coronary Artery Disease, Depression, Diabetes Mellitus Type 2, Hyperlipidemia, Hypertension, Lung Disease, Kidney Stones, Palpitations, Renal Diseas
== END ==
PROVIDERS: PCP Internal Medicine Adolescent Medicine; Visit Provider Clinical Nurse Specialist Family Health
DX: M54.5 Low back pain (principal); M46.1 Sacroiliitis, not elsewhere classified
CPT/HCPCS: 99202

== ENCOUNTER 2020-01-29 12:49 | Day surgery (SDC) | payer MEDICARE, MEDICAID, SELFPAY ==
[2020-01-29 12:56] VITALS: BP 145/84; PULSE 68; RESP 18; TEMP 36.5; O2SAT 99; BMI 27.3
[2020-01-29 13:50] VITALS: BP 128/88; PULSE 85; RESP 18; O2SAT 98
[2020-01-29 13:51] VITALS: BP 132/78; PULSE 75; RESP 18; O2SAT 98
--- NOTE | 2020-01-29 13:52 | HMH.PMPROC ---
- Procedure Date: 01/29/20 Time: 13:52 Anesthesiologist:: Wallace Conley MD Complications:: None Pre-procedure Diagnosis:: Sacroiliitis Post-procedure Diagnosis:: Same Indications for Procedure:: Patient is a pleasant 54-year-old white female who we have been treating for low back pain and hip pain. She is tender over the right SI joint. She is positive SI joint compression test. She is positive Hiral's test on right side. She positive Rodrigo test on right side. We will do a right SI joint injection under fluoroscopy today to see if this helps with her pain symptoms. Procedure Details:: Right SI joint injection under fluoroscopy Informed consent was obtained and the risks and benefits of the procedure was going to the patient. Patient was taken to the procedure room. Patient was placed prone on the procedure table. The right hip was prepped using ChloraPrep. The skin and subcutaneous tissues were anesthetized using lidocaine. I placed a 22-gauge spinal needle into the inferior aspect of the right SI joint. Needle placement was confirmed with dye. After this we injected 5 mL bupivacaine 0.25% and Depo-Medrol 40 mg into the right SI joint. The patient tolerated the procedure well with no complication. Plan and Disposition:: We will follow-up with her in 2 weeks. Will reevaluate symptoms at that time.
[2020-01-29 14:00] VITALS: BP 140/61; PULSE 64; RESP 20; O2SAT 99
== END 2020-01-29 14:01 | disposition home or self-care (01) ==
LOC: SC.PAINP 12:52
PROVIDERS: PCP Internal Medicine Adolescent Medicine; Visit Provider Anesthesiology
DX: M46.1 Sacroiliitis, not elsewhere classified (principal); M54.30 Sciatica, unspecified side; I10 Essential (primary) hypertension; I25.119 Atherosclerotic heart disease of native coronary artery with unspecified angina pectoris; E78.5 Hyperlipidemia, unspecified; E11.9 Type 2 diabetes mellitus without complications; R00.2 Palpitations; N28.9 Disorder of kidney and ureter, unspecified; E07.9 Disorder of thyroid, unspecified; Z88.8 Allergy status to other drugs, medicaments and biological substances; Z72.0 Tobacco use; Z95.818 Presence of other cardiac implants and grafts
CPT/HCPCS: 27096; G0260; J1040; Q9966

== ENCOUNTER → 2020-02-18 09:48 | Outpatient (POV) | payer MEDICARE, MEDICAID, SELFPAY ==
--- NOTE | 2020-02-18 10:34 | HMH.PAINSOAP ---
[facility] Pain Management SOAP Note Subjective:: Is a 54-year-old white female who presents today for follow-up after a SI joint injection. Patient is having chronic low back pain with radiation into her right groin and right leg. She says she has numbness and tingling in her right thigh. She also reports to having muscle loss to her right anterior thigh. She says that she is having worsening pain with standing and walking and improves with leaning forward. She did not get any relief from her right SI joint injection. Patient rates her pain an 8 out of 10 today. She is on Plavix. She is also taking gabapentin 100 mg 1 tablet p.o. twice daily as prescribed by Dr. Conteh. She says that she did not feel that the gabapentin was giving her any relief so she has not been taking it over the last few days. Patient does have an InterStim for chronic constipation. She has ANS disorder. She feels that her back pain is worsening. Patient says that she is fearful that she is going to fall and break her hip. She says that she will fall for no reason and is now having heaviness and weakness in her right lower extremity. Review of Systems General: No recent weight changes, no fever, no sleep disturbances Respiratory: No cough, no shortness of air, no recurring pulmonary infections Cardiovascular/peripheral vascular: No chest pain, no palpitations, no edema, no shortness of breath Gastrointestinal: No new onset incontinence, normal bowel movements reported Genitourinary: No new onset incontinence Musculoskeletal: Right low back pain, right groin pain, right hip pain, right leg pain numbness and tingling Psychiatric: Normal mood/affect Neurological: [Denies weakness in extremities], [denies balance issues] Objective:: Physical exam General: Alert and oriented x3, no acute distress, pleasant and cooperative, [on room air] Lungs: Respirations even and unlabored, symmetrical chest expansion Eyes: PERRL Musculoskeletal: Flexion and extension of lumbar spine somewhat guarded secondary to pain, deep tendon reflexes normal, strength in upper and lower extremities [5/5], [abnormal gait noted] Neurological: Speech clear, nuclear medical tech equal, no gross sensory deficit Assessment:: Degenerative disc disease lumbar spine with lumbar radiculopathy symptoms, sclerosis right SI joint Plan:: Patient is having some neurogenic claudication symptoms. She does not feel that the SI joint give her any relief. She is on Plavix prescribed per Dr. Conteh. I did discuss that she may benefit from increasing her gabapentin to 300 mg 1 tablet p.o. daily. We will contact his clinic for approval for her to hold her anticoagulation therapy. We will schedule her for an epidural with epidurogram at L4-L5. We will see her back in the clinic afterwards to reassess her symptoms. She has been instructed to contact clinic if she has concerns for next appointment. The patient and I specifically discussed risk factors for COVID19. These risks include, but are not limited to age greater than 60, heart or lung disease, diabetes, immunosuppression, and travel. We also discussed NSAIDs may worsen COVID19 infection or symptoms. Patient should not use NSAIDs to treat COVID19 signs or symptoms. Patient was also informed that any type of corticosteroid of any form (oral or injection) will decrease the patient's immune system response and may increase the likelihood of COVID19 infection [address] symptoms[address] Conley has reviewed this note and agrees with this plan of care. This note was dictated using voice recognition software and make contain errors or omissions. [facility] History I have reviewed the patient's past medical history: Yes Medical History: Reports:: Anxiety, Arrhythmia, Chronic Obstructive Pulmonary Disease (COPD), Coronary Artery Disease, Depression, Diabetes Mellitus Type 2, Hyperlipidemia, Hypertension, Lung Disease, Kidney Stones, Palpitations, Renal Disease Denies:: Cancer, Diabetes [place]
[2020-02-18 11:32] VITALS: BP 122/58; PULSE 72; RESP 18; TEMP 36.4; O2SAT 98; BMI 27.3
== END ==
PROVIDERS: PCP Internal Medicine Adolescent Medicine; Visit Provider Clinical Nurse Specialist Family Health
DX: M51.16 Intervertebral disc disorders with radiculopathy, lumbar region (principal); M53.3 Sacrococcygeal disorders, not elsewhere classified
CPT/HCPCS: 99212

== ENCOUNTER 2020-03-11 09:54 | Day surgery (SDC) | payer MEDICARE, MEDICAID, SELFPAY ==
[2020-03-11 11:13] VITALS: BP 128/80; PULSE 79; RESP 17; TEMP 36.9; O2SAT 94; BMI 27.3
[2020-03-11 11:31] VITALS: BP 125/74; PULSE 85; RESP 18
[2020-03-11 11:32] VITALS: BP 138/78; PULSE 74; RESP 18; O2SAT 98
--- NOTE | 2020-03-11 11:37 | HMH.PMPROC ---
- Procedure Date: 03/11/20 Time: 11:37 Anesthesiologist:: Wallace Conley MD Complications:: None Pre-procedure Diagnosis:: Degenerative disc disease of lumbar spine with lumbar radicular symptoms and increasing right leg pain Post-procedure Diagnosis:: Same Indications for Procedure:: Patient is a pleasant 54-year-old white female who we are treating for low back pain and right hip and leg pain. She did have a right SI joint injection which did not give her much relief. She is on Plavix. She has been off her Plavix for 7 days. We will do a lumbar pleural steroid injection today to see if this will help with her pain symptoms. Procedure Details:: Lumbar epidural steroid injection under fluoroscopy Informed consent was obtained and the risk and benefits of the procedure was explained to the patient. The patient was taken to the procedure room. The patient was placed prone on the procedure table. The patient was prepped and draped in sterile fashion. C-arm fluoroscopy was used to view the lumbar spine. Skin and subcutaneous tissues were anesthetized using lidocaine. I placed an 18-gauge epidural needle and advanced into the L4-L5 interspace using fluoroscopic guidance and [id number] to air. After confirmation of needle placement in the epidural space with dye I injected 2 mL of lidocaine 1.5% with Depo-Medrol 80 mg. Patient tolerated the procedure well with no complications. Plan and Disposition:: We will follow-up with him in 2 weeks. Will reevaluate symptoms at that time.
[2020-03-11 11:39] VITALS: BP 138/66; PULSE 72; RESP 18; O2SAT 99
== END 2020-03-11 11:40 | disposition home or self-care (01) ==
LOC: SC.PAINP 09:54
PROVIDERS: PCP Internal Medicine Adolescent Medicine; Visit Provider Anesthesiology
DX: M51.16 Intervertebral disc disorders with radiculopathy, lumbar region (principal); M79.604 Pain in right leg; I10 Essential (primary) hypertension; E03.9 Hypothyroidism, unspecified; F41.9 Anxiety disorder, unspecified; Z88.2 Allergy status to sulfonamides; Z88.8 Allergy status to other drugs, medicaments and biological substances; Z72.0 Tobacco use; F32.9 Major depressive disorder, single episode, unspecified; Z95.818 Presence of other cardiac implants and grafts
CPT/HCPCS: 62323; J1040; Q9966

== ENCOUNTER → 2020-03-22 12:01 | Outpatient (CLI) | payer MEDICARE, MEDICAID, SELFPAY ==
[2020-03-22 12:19] LABS: Basophils # 0.1 K/mm3 (0-0.2); Basophils % 0.8 % (0.1-2.0); Eosinophils # 0.2 K/mm3 (0.0-0.4); Hematocrit 34.8 % (37.0-47.0); Hemoglobin 10.8 g/dL (12.2-16.2); Lymphocytes # 2.7 K/mm3 (0.7-4.5); Lymphocytes % 33.5 % (10-50); Mean Corpuscular HGB Conc 31.1 g/dL (31.8-35.4); Mean Corpuscular Hemoglobin 26.7 pg (27.0-31.2); Mean Corpuscular Volume 85.9 fl (81-99); Mean Platelet Volume 7.7 fl (7.4-10.4); Monocytes # 0.4 K/mm3 (0.1-1.0); Monocytes % 5.4 % (1.7-9.3); Neutrophils # 4.6 K/mm3 (1.8-7.8); Neutrophils % 57.3 % (37.0-80.0); Platelet Count 214 K/mm3 (142-424); Red Blood Count 4.06 M/mm3 (4.20-5.40); Red Cell Distribution Width 14.8 % (11.5-17.5)
[2020-03-22 13:08] LABS: Chloride 103 mmol/L (98-107); Potassium 4.2 mmoL/L (3.5-5.1); Sodium 139 mmol/L (136-145)
[2020-03-22 13:10] LABS: Alanine Aminotransferase 29 U/L (12-78); Anion Gap 12.2 mEq/L (5-15); Aspartate Amino Transferase 46 U/L (14-36); Blood Urea Nitrogen 19 mg/dl (7-17); Carbon Dioxide 28 mmol/L (22.0-30.0); Estimated Glomerular Filt Rate 65 ml/min (>60); GFR (African American) 78 ML/MIN (>60)
[2020-03-22 13:11] LABS: Albumin Level 3.8 g/dl (3.5-5.0); Albumin/Globulin Ratio 1.5 (1.1-1.8); Alkaline Phosphatase 85 U/L (38-126); Bilirubin,Total 0.3 mg/dl (0.2-1.3); Calcium 9.8 mg/dl (8.4-10.2); Chol/HDL Ratio 3.5 (1-3.5); Cholesterol 165 mg/dl (140-200); Globulin 2.5 g/dL (1.3-3.2); Glucose 123 mg/dl (74-100); HDL Cholesterol 47 mg/dl (40-60); Total Protein,Serum 6.3 g/dl (6.3-8.2); Triglycerides 359 mg/dl (30-150); VLDL Cholesterol 72 mg/dL (0-40)
[2020-03-22 13:23] LABS: Direct LDL Cholesterol 79.55 mg/dL (100-129)
[2020-03-22 13:41] LABS: Thyroid Stimulating Hormone 6.71 uIU/mL (0.465-4.68)
== END ==
PROVIDERS: Visit Provider Nurse Practitioner Family
DX: I25.10 Atherosclerotic heart disease of native coronary artery without angina pectoris (principal); E11.9 Type 2 diabetes mellitus without complications; E03.9 Hypothyroidism, unspecified; I10 Essential (primary) hypertension
CPT/HCPCS: 36415; 80053; 80061; 83036; 84443; 85025

== ENCOUNTER → 2020-04-21 13:09 | Outpatient (POV) | payer MEDICARE, MEDICAID, SELFPAY ==
[2020-04-21 13:52] VITALS: BP 133/77; PULSE 74; RESP 18; O2SAT 98; BMI 29.2
--- NOTE | 2020-04-21 17:38 | HMH.PAINSOAP ---
[facility] Pain Management SOAP Note Subjective:: Patient is a 55-year-old white female who presents today for follow-up. She has been treated for chronic low back pain with lumbar radiculopathy symptoms. She does have radicular pain into her right leg. Patient recently underwent a lumbar epidural steroid injection for which she says she did not do any relief. She rates her pain a 7 out of 10 today. Patient says that she feels her pain has changed. She says it starts at her neck radiates into her mid back and goes into her low back area with radiation into her legs. She is also having some pain in her bilateral upper extremities. She does not have any recent imaging. Patient does have a a stimulator that prohibits her from having an MRI. Patient says that her pain is progressively getting worse and the injections are no longer working for her. She would like to undergo imaging of her spine to see if something has changed to cause her to have progressively worsening pain. She has tried physical therapy for greater than 6 weeks. She is also tried a home stretching program with no relief. She has used ice and heat therapies as well with no relief. Oral medications have not been beneficial for the pain. Review of Systems General: No recent weight changes, no fever, no sleep disturbances Respiratory: No cough, no shortness of air, no recurring pulmonary infections Cardiovascular/peripheral vascular: No chest pain, no palpitations, no edema, no shortness of breath Gastrointestinal: No new onset incontinence, normal bowel movements reported Genitourinary: No new onset incontinence Musculoskeletal: Neck pain with bilateral arm pain, mid back pain, low back pain with radiation into right leg Psychiatric: Normal mood/affect Neurological: [Denies weakness in extremities], [denies balance issues] Objective:: Physical exam General: Alert and oriented x3, no acute distress, pleasant and cooperative, [on room air] Lungs: Respirations even and unlabored, symmetrical chest expansion Eyes: PERRL Musculoskeletal: Flexion and extension of cervical, thoracic, and lumbar spine somewhat guarded secondary to pain, deep tendon reflexes normal, strength in upper and lower extremities [5/5], [abnormal gait noted] Neurological: Speech clear, skating rink ice maker equal, no gross sensory deficit Assessment:: Degenerative disc disease lumbar spine with lumbar radiculopathy symptoms, neck pain with cervical radiculopathy symptoms, mid back pain Plan:: Patient has not had any recent imaging. We will proceed with cervical, thoracic, and lumbar CT scan to see if the patient does have any changes from previous imaging. She has tried and failed conservative therapies of physical therapy for greater than 6 weeks, home stretching, injections, ice and heat, as well as oral medications. We will plan to see her back in the clinic after her scan as cervical, thoracic, and lumbar spine to discuss a further plan of care. Patient has been instructed to contact the clinic if she has any concerns before next appointment. The patient and I specifically discussed risk factors for COVID19. These risks include, but are not limited to age greater than 60, heart or lung disease, diabetes, immunosuppression, and travel. We also discussed NSAIDs may worsen COVID19 infection or symptoms. Patient should not use NSAIDs to treat COVID19 signs or symptoms. Patient was also informed that any type of corticosteroid of any form (oral or injection) will decrease the patient's immune system response and may increase the likelihood of COVID19 infection [address] symptoms[address] Conley has reviewed this note and agrees with this plan of care. This note was dictated using voice recognition software and make contain errors or omissions. [facility] History I have reviewed the patient's past medical history: Yes Medical History: Reports:: Anxiety, Arrhythmia, Chronic Obstructive Pulmonary Disease (COPD), Coronary Artery Di
== END ==
PROVIDERS: PCP Nurse Practitioner Family; Visit Provider Clinical Nurse Specialist Family Health
DX: M51.16 Intervertebral disc disorders with radiculopathy, lumbar region (principal); M50.10 Cervical disc disorder with radiculopathy, unspecified cervical region; M54.6 Pain in thoracic spine
CPT/HCPCS: 99212

== ENCOUNTER → 2020-05-05 14:55 | Outpatient (CLI) | payer MEDICARE, MEDICAID, SELFPAY ==
--- NOTE | 2020-05-05 14:59 | CT_ITS ---
PROCEDURE: CT CERVICAL SPINE WO CON CLINICAL INDICATION: NECK PAIN,BACK PAIN NECK PAIN, NO INJURY PRIOR 05/11/15 COMPARISON: CT CSWO CT CERVICAL SPINE W/O CONT from 05/11/2015 TECHNIQUE: Axial images obtained with sagittal and coronal reformats. All CT scans at the facility use one or more dose reduction, viz: automated exposure control, ma/kV adjustment per patient size (including targeted exams where dose is matched to indication, i.e. head), or iterative reconstruction technique. Axial spiral CT scanning performed of the cervical spine beginning at the base of the skull and continuing to the upper T-spine. 3-D multiplanar reconstruction with 3-D manipulation of volumetric data set in image rendering was completed by the radiologist and/or technologist with the supervision of the radiologist on independent workstation. FINDINGS: There is normal alignment. No fracture or dislocation. No lytic or blastic change. There is mild multilevel cervical spondylosis. C2-C3: Mild left-sided uncovertebral hypertrophy with mild left lateral recess narrowing. Not significantly changed. C3-C4: Unremarkable. C4-C5: Minimal bulging disc. C5-C6: Degenerative disc disease with bulging disc. There is prominent facet hypertrophic change on the right with right-sided foraminal narrowing not significantly changed. Mild left-sided foraminal narrowing is present as well. Canal stenosis is noted at this level at 9 mm. C6-C7: Degenerative disc disease with uncovertebral hypertrophy with bilateral foraminal narrowing. C7-T1: Partial fusion of the vertebral bodies. Lung apices are clear. Calcified granulomas are present in the right upper lobe and right apex. IMPRESSION: Multilevel cervical spondylosis with degenerative disc disease, facet and uncovertebral hypertrophy with lateral recess foraminal narrowing and canal stenosis. Please see above for detailed description at each level. Dictated by: Nathan Hoffman MD 05/06/2020 08:06 Nathan Hoffman MD in [place] 05/06/2020 08:06
--- NOTE | 2020-05-05 14:59 | CT_ITS ---
PROCEDURE: CT THORACIC SPINE WO CON CLINICAL HISTORY: NECK PAIN,BACK PAIN BACK PAIN, NO INJURY NO PRIOR COMPARISON: No exams were available for comparison TECHNIQUE: Axial images obtained with sagittal and coronal reformats. All CT scans at the facility use one or more dose reduction, viz: automated exposure control, ma/kV adjustment per patient size (including targeted exams where dose is matched to indication, i.e. head), or iterative reconstruction technique. FINDINGS: There is normal alignment. No acute fracture or dislocation is evident. No lytic or blastic change. No paraspinal soft tissue mass or bony erosive change. There is mild multilevel thoracic spondylosis with slight decrease in the disc spaces. There is mild thoracic curvature convex right in the upper thoracic spine. Minimal endplate spurring is present in the upper thoracic spine. There is mild generalized osteopenia. Incidental note is made a nonobstructing stone in the mid aspect of the left kidney at 6 mm. There is calcified nodes in the mediastinum and there are atherosclerotic calcifications noted of the aorta and coronary arteries. Small lymph nodes are present in the periaortic region on. IMPRESSION: Mild thoracic spondylosis. Please see above for detailed description. Left nephrolithiasis. Dictated by: Nathan Hoffman MD 05/06/2020 08:10 Nathan Hoffman MD in [place] 05/06/2020 08:10
== END ==
PROVIDERS: PCP Nurse Practitioner Family; Visit Provider Clinical Nurse Specialist Family Health
DX: M54.2 Cervicalgia (principal); M54.6 Pain in thoracic spine
CPT/HCPCS: 72125; 72128

== ENCOUNTER → 2020-05-16 12:39 | Outpatient (POV) | payer MEDICARE, MEDICAID, SELFPAY ==
--- NOTE | 2020-05-16 13:25 | HMH.PAINSOAP ---
[facility] Pain Management SOAP Note Subjective:: Patient is a pleasant 55-year-old white female who presents today for follow-up after new diagnostic imaging. Patient had mild pathology in her thoracic spine. She did have a C5-C6 disc bulge on her cervical CT. Patient has had epidural injections and bilateral SI joint injections with no relief. Patient states that she is having more lower back pain and neck pain. Patient does have positive facet loading. She is very tender over her facet joints. Patient and I discussed a medial branch block as a diagnostic tool to see if she is a neurotomy candidate. She would like to move forward with this. We will also reenroll her in physical therapy. Patient states that she is feeling overall weak. Patient is on Plavix. Patient's pain is quite focal she rates it a 5 out of 10. ROS General: no recent weight change, no fever, no sleep disturbances Respiratory: no cough, no shortness of air, no recurring pulmonary infections Cardiovascular/Peripheral Vascular: No chest pain, No palpitations, no edema, no shortness of breath. Gastrointestinal: no new onset incontinence, normal bowel movements reported Genitourinary: no new onset incontinence Musculoskeletal: Back pain Psychiatric: normal mood/ affect, [denies depression], [denies anxiety] Neurological: [denies new onset weakness in extremities], [denies new onset balance issues] Objective:: Physical Exam General: Alert and oriented x3, no acute distress, pleasant and cooperative, [on room air] Lungs: Resps E/U, Symmetrical chest expansion, Eyes: PERRL Musculoskeletal: Flexion and extension of lumbar spine somewhat guarded secondary to pain, deep tendon reflexes normal, strength in upper and lower extremities [5/5], [abnormal gait noted] Neurological: speech clear, dielectric embossing machine operator equal, no gross sensory deficits Assessment:: Degenerative disc disease lumbar spine lumbar spondylosis, facet arthropathy Plan:: We will schedule the patient for an L4-L5 L5-S1 bilateral medial branch block. She may be a candidate for her neurotomy. Patient she is on Plavix is on Plavix we will ensure that she has approval to come off prior to her next injection. I will follow-up with her after this reassess her symptoms at that time we will also restart her physical therapy. Dr. Conley has reviewed this note and agrees with this plan of care. This note was dictated using voice recognition software and may contain errors or omissions [facility] History I have reviewed the patient's past medical history: Yes Medical History: Reports:: Anxiety, Arrhythmia, Chronic Obstructive Pulmonary Disease (COPD), Coronary Artery Disease, Depression, Diabetes Mellitus Type 2, Hyperlipidemia, Hypertension, Lung Disease, Kidney Stones, Palpitations, Renal Disease Denies:: Cancer, Diabetes Mellitus Type 1, Internal Pacemaker, MRSA, Seizures *Have you ever received a pneumonia vaccine?: Yes *Have you received a flu vaccine this season?: Yes Other Medical History: Reports: Arthritis, Hypothyroidism, Liver Disease, Sinus Problems, Thyroid Disease. Denies: Blood Transfusion Reaction Other Surgeries: Yes: No Previous Surgery, Cardiac Catheterization, Colonoscopy, Colostomy, Coronary Stent. No: Pacemaker Amputation: No Fractures: No - *Social History Smoking Status: Current every day smoker Tobacco Type: cigarettes # Packs/Day (cigarettes): 1 Alcohol Intake: never Alcohol Intake Frequency:: other Substance Use Type: denies use *Occupational Status:: other Housing: house Household Members: none *Travel in the last 8 weeks: None - Psychiatric History Pschychiatric History:: Reports:: Anxiety, Depression Family Hx:: Unable to obtain
[2020-05-16 14:12] VITALS: BP 122/82; PULSE 72; RESP 18; TEMP 36.2; O2SAT 99; BMI 27.3
== END ==
PROVIDERS: PCP Internal Medicine Adolescent Medicine; Visit Provider Clinical Nurse Specialist Family Health
DX: M51.36 Other intervertebral disc degeneration, lumbar region (principal); M47.816 Spondylosis without myelopathy or radiculopathy, lumbar region; M54.06 Panniculitis affecting regions of neck and back, lumbar region
CPT/HCPCS: 99212

== ENCOUNTER → 2020-08-18 14:07 | Outpatient (POV) | payer MEDICARE, MEDICAID, SELFPAY ==
[2020-08-18 15:49] VITALS: BP 138/85; PULSE 89; RESP 18; O2SAT 98; BMI 27.3
--- NOTE | 2020-08-18 15:57 | HMH.PAINSOAP ---
[facility] Pain Management SOAP Note Subjective:: Patient is a 55-year-old white female who presents today for follow-up. She is being treated for degenerative disc disease lumbar spine with lumbar spondylosis and facet arthropathy. Patient has undergone epidural steroid injections as well as bilateral SI joint injections. Patient is complaining today of low back pain with radiation into bilateral legs. She is complaining of severe heaviness and weakness in her lower extremities and frequent falls. Patient says that she has a throbbing sensation in her low back. She says when the pain develops she starts to have severe weakness and heaviness in her legs. She does have a stimulator for autonomic nervous system disorder. She says that was placed in [facility]. She says she did not get any relief with this. Patient does have a colostomy. She says that she is very concerned with undergoing any type of implanted device due to her history of stimulator not working for her autonomic nervous system disorder. Patient does have a CT scan of her lumbar spine, but no MRI. She is on Plavix for cardiac stents. Her Plavix is prescribed per Dr. Conteh. Patient has had an epidural in the past and has gotten relief for about 2 weeks at 80%. Patient is exhibiting neurogenic claudication type symptoms. Review of Systems General: No recent weight changes, no fever, no sleep disturbances Respiratory: No cough, no shortness of air, no recurring pulmonary infections Cardiovascular/peripheral vascular: No chest pain, no palpitations, no edema, no shortness of breath Gastrointestinal: No new onset incontinence, normal bowel movements reported Genitourinary: No new onset incontinence Musculoskeletal: Low back pain and to bilateral legs and ankles with heaviness and weakness along with frequent falls Psychiatric: Normal mood/affect Neurological: Heaviness and weakness in lower extremities with frequent falls Objective:: Physical exam General: Alert and oriented x3, no acute distress, pleasant and cooperative, [on room air] Lungs: Respirations even and unlabored, symmetrical chest expansion Eyes: PERRL Musculoskeletal: Flexion and extension of lumbar spine somewhat guarded secondary to pain, deep tendon reflexes normal, strength in upper and lower extremities [5/5], [abnormal gait noted] Neurological: Speech clear, coat checker equal, no gross sensory deficit Assessment:: Degenerative disc disease lumbar spine with lumbar radiculopathy symptoms, neurogenic claudication type symptoms Plan:: We will schedule the patient for a lumbar epidural steroid injection at L4-L5 with an epidurogram. The patient is on Plavix. This is prescribed by Dr. Conteh. We will seek approval to hold her Plavix for the procedure. Patient may be a candidate for Vertiflex. I did discuss this with her and did give her educational information today. She is exhibiting neurogenic claudication type symptoms. She is having frequent falls along with heaviness and weakness in her lower extremities. She was educated regarding the procedure and would like to proceed. She has been instructed to contact clinic if she has any concerns for next appointment. The patient and I specifically discussed risk factors for COVID19. These risks include, but are not limited to age greater than 60, heart or lung disease, diabetes, immunosuppression, and travel. We also discussed NSAIDs may worsen COVID19 infection or symptoms. Patient should not use NSAIDs to treat COVID19 signs or symptoms. Patient was also informed that any type of corticosteroid of any form (oral or injection) will decrease the patient's immune system response and may increase the likelihood of COVID19 [address] Conley has reviewed this note and agrees with this plan of care. This note was dictated using voice recognition software and make contain errors or omissions. [facility] History I have reviewed the patient's
--- NOTE | 2020-08-31 09:06 | PC.NURSE ---
Verbal consent obtained for patient to hold her plavix for 7 days prior to procedures from Dr Salas per Mary Turpin in office.
--- NOTE | 2020-08-31 09:24 | PC.NURSE ---
Pt notified to hold her plavix starting this saturday 09/02 until next saturday for her lumbar epidural steroid injection. Pt v/u.
== END ==
PROVIDERS: PCP Internal Medicine Adolescent Medicine; Visit Provider Clinical Nurse Specialist Family Health
DX: M51.16 Intervertebral disc disorders with radiculopathy, lumbar region (principal); M48.062 Spinal stenosis, lumbar region with neurogenic claudication
CPT/HCPCS: 99212; G0463

== ENCOUNTER → 2020-09-01 13:34 | Outpatient (CLI) | payer MEDICARE, MEDICAID, SELFPAY ==
[2020-09-01 14:30] LABS: Basophils # 0.1 K/mm3 (0-0.2); Eosinophils # 0.2 K/mm3 (0.0-0.4); Eosinophils % 3.1 % (0.1-12.0); Hematocrit 37.8 % (37.0-47.0); Hemoglobin 12.1 g/dL (12.2-16.2); Lymphocytes # 2.6 K/mm3 (0.7-4.5); Mean Corpuscular Hemoglobin 27.7 pg (27.0-31.2); Mean Corpuscular Volume 86.6 fl (81-99); Mean Platelet Volume 7.5 fl (7.4-10.4); Monocytes # 0.5 K/mm3 (0.1-1.0); Monocytes % 6.3 % (1.7-9.3); Neutrophils # 4.6 K/mm3 (1.8-7.8); Neutrophils % 57.6 % (37.0-80.0); Platelet Count 222 K/mm3 (142-424); Red Blood Count 4.36 M/mm3 (4.20-5.40); Red Cell Distribution Width 14.6 % (11.5-17.5)
[2020-09-01 14:38] LABS: Hemoglobin A1C 11.7 % (4.0-6.0)
[2020-09-01 15:07] LABS: Alanine Aminotransferase 26 U/L (12-78); Albumin Level 4.1 g/dl (3.5-5.0); Albumin/Globulin Ratio 1.5 (1.1-1.8); Alkaline Phosphatase 190 U/L (38-126); Anion Gap 14.7 mEq/L (5-15); Aspartate Amino Transferase 51 U/L (14-36); Bilirubin,Total 0.2 mg/dl (0.2-1.3); Blood Urea Nitrogen 12 mg/dl (7-17); Calcium 9.5 mg/dl (8.4-10.2); Carbon Dioxide 26 mmol/L (22.0-30.0); Chloride 96 mmol/L (98-107); Estimated Glomerular Filt Rate 46 ml/min (>60); GFR (African American) 56 ML/MIN (>60); Globulin 2.8 g/dL (1.3-3.2); Glucose 372 mg/dl (74-100); Magnesium 1.9 mg/dl (1.6-2.3); Potassium 4.7 mmoL/L (3.5-5.1); Sodium 132 mmol/L (136-145); Total Protein,Serum 6.9 g/dl (6.3-8.2)
[2020-09-01 15:25] LABS: 25-OH Vitamin D, Total 33.6 ng/mL (30-100)
[2020-09-01 15:59] LABS: Vitamin B12 > 1000 pg/mL (239-931)
== END ==
PROVIDERS: Visit Provider Nurse Practitioner Family
DX: E11.8 Type 2 diabetes mellitus with unspecified complications (principal); I25.10 Atherosclerotic heart disease of native coronary artery without angina pectoris; I10 Essential (primary) hypertension; E03.9 Hypothyroidism, unspecified; R53.81 Other malaise; E83.42 Hypomagnesemia; M89.9 Disorder of bone, unspecified; M94.9 Disorder of cartilage, unspecified
CPT/HCPCS: 36415; 80053; 82306; 82607; 83036; 83735; 84443; 85025

== ENCOUNTER 2020-09-17 12:32 | Emergency (ER) | payer MEDICARE, MEDICAID, SELFPAY ==
[2020-09-17 12:36] VITALS: BP 188/96; PULSE 81; RESP 18; TEMP 36.7; O2SAT 97; BMI 27.3
--- NOTE | 2020-09-17 12:37 | CT_ITS ---
PROCEDURE: CT ABDOMEN PELVIS W CON CLINICAL INDICATION: R/o obstruction, nonfucnctional ostomy COMPARISON: CT ABDPELW/O CT ABD PELVIS W/O CONTRAST from 08/22/2015 TECHNIQUE: IV Contrast: 75ML Isovue 370 Oral Contrast none Axial images obtained with sagittal and coronal reformats. All CT scans at the facility use one or more dose reduction, viz: automated exposure control, ma/kV adjustment per patient size (including targeted exams where dose is matched to indication, i.e. head), or iterative reconstruction technique. FINDINGS: LOWER THORAX: 5 mm noncalcified nodule right lower lobe posteriorly. Minimal atelectatic change lingula. ABDOMEN & PELVIS: Fatty liver with hepatomegaly. The spleen, adrenal glands, pancreas have an unremarkable appearance. There is a staghorn calculus in the upper pole of the left kidney. There is a duplicated right renal collecting system. The ureters appear to join in their mid aspect. No ureteral calculus. There is minimal ectasia of the right renal collecting system. The appendix is not clearly delineated. Mildly prominent fluid-filled distal small bowel loops are noted. Calcific density is present in the cecum. There is distension of the cecum measuring up to 7 cm and ascending colon with fluid-filled cecum ascending colon and transverse colon. There is a left mid abdominal colostomy with a moderate amount of feces within distended colon at the ostomy site which may be related to fecal impaction. There are some adjacent inflammatory changes both in the subcutaneous fat and in the mesenteries of adjacent to the distal transverse colon with mild thickening within the distal transverse colon. There has been a prior left hemicolectomy with a Mike's pouch. Stomach is distended with debris. No acute bony anomalies. Presacral neurostimulator device is present on the left. IMPRESSION: Left-sided colostomy with previous left partial hemicolectomy. Possible impacted stool at the colostomy site with adjacent inflammatory changes noted both in the subcutaneous fat and mesenteries adjacent to the distal transverse colon. There is fluid-filled distal small bowel loops to the transverse colon with moderate distention of the cecum measuring up to 7 cm. This may be secondary to stool impaction within the colostomy causing obstruction. Mild wall thickening of the distal transverse colon to the ostomy site suggesting colitis Staghorn calculus of the left kidney Hepatomegaly with fatty liver infiltration Dictated by: Nathan Hoffman MD 09/18/2020 12:32 Nathan Hoffman MD in [place] 09/18/2020 12:32
[2020-09-17 12:45] VITALS: BP 192/88; PULSE 117
[2020-09-17 12:46] LABS: Basophils # 0.1 K/mm3 (0-0.2); Basophils % 0.5 % (0.1-2.0); Eosinophils # 0.1 K/mm3 (0.0-0.4); Eosinophils % 0.8 % (0.1-12.0); Hematocrit 40.8 % (37.0-47.0); Hemoglobin 12.7 g/dL (12.2-16.2); Lymphocytes # 1.3 K/mm3 (0.7-4.5); Lymphocytes % 9.6 % (10-50); Mean Corpuscular HGB Conc 31.2 g/dL (31.8-35.4); Mean Corpuscular Hemoglobin 27.8 pg (27.0-31.2); Mean Corpuscular Volume 88.9 fl (81-99); Mean Platelet Volume 7.8 fl (7.4-10.4); Monocytes # 0.6 K/mm3 (0.1-1.0); Monocytes % 4.4 % (1.7-9.3); Neutrophils # 11.6 K/mm3 (1.8-7.8); Neutrophils % 84.7 % (37.0-80.0); Platelet Count 246 K/mm3 (142-424); Red Blood Count 4.59 M/mm3 (4.20-5.40); Red Cell Distribution Width 14.5 % (11.5-17.5); White Blood Count 13.6 K/mm3 (4.8-10.8)
--- NOTE | 2020-09-17 12:46 | HMH.EDGENADL ---
ED Disposition Clinical Impression: Pain, Impaction of colon Disposition: Xfer Short-Term Hosp Condition on Discharge: Fair Instructions: DI for Acute Abdominal Pain Referrals: Avelino Salas MD [Primary Care Provider] - Forms: Transfer Record - ED - Critical Care Critical Care Time: No Attestation: On , the high probability of a clinically significant, sudden or life threatening deterioration of the following system(s) required my full and direct attention, intervention and personal management. The time I documented below is in addition to time spent performing reported procedures but includes the following listed in this critical care notation. Medical Decision Making - Medical Records Medical records reviewed: Yes: I reviewed the patient's medical records. - Rob Inquiry Pt receiving controlled substance: Yes (Morphine in the ED) Rob was queried for this patient: Yes Risks and benefits of using a controlled substance: were discussed with pt by me Vital Signs: 09/17/20 12:36 09/17/20 12:45 09/17/20 13:04 Temperature 98.1 F Temperature Source Oral Pulse Rate 117 H 82 Pulse Rate [Right] 81 Respiratory Rate 18 16 Blood Pressure 192/88 H 151/64 H Blood Pressure [Right Arm] 188/96 H Blood Pressure Mean Blood Pressure Mean [Right Arm] 126 Blood Pressure Source Automatic Cuff Automatic Cuff Blood Pressure Position Supine 02 Sat by Pulse Oximetry 97 94 L Oxygen Delivery Method Room Air 09/17/20 14:00 09/17/20 16:30 09/17/20 17:08 Temperature 98.1 F Temperature Source Oral Pulse Rate 85 91 H 91 H Pulse Rate [Right] Respiratory Rate 16 16 Blood Pressure 149/79 H 154/71 H 154/71 H Blood Pressure [Right Arm] Blood Pressure Mean 94 Blood Pressure Mean [Right Arm] Blood Pressure Source Automatic Cuff Automatic Cuff Blood Pressure Position Sitting 02 Sat by Pulse Oximetry 99 95 Oxygen Delivery Method Room Air Room Air - Lab Data Lab Results 09/17/20 12:30: WBC 13.6 H, RBC 4.59, Hgb 12.7, Hct 40.8, MCV 88.9, MCH 27.8, MCHC 31.2 L, RDW 14.5, Plt Count 246, MPV 7.8, Neut % (Auto) 84.7 H, Lymph % (Auto) 9.6 L, [place] % (Auto) 4.4, Eos % (Auto) 0.8, Baso % (Auto) 0.5, Neut # (Auto) 11.6 H, Lymph # (Auto) 1.3, [place] # (Auto) 0.6, Eos # (Auto) 0.1, Baso # (Auto) 0.1 09/17/20 12:30: Sodium 134 L, Potassium 4.1, Chloride 104, Carbon Dioxide 20 L, Anion Gap 14.1, BUN 19 H, Creatinine 1.30 H, Estimated Creat Clear 50, Estimated GFR 42 L, Est GFR ( Amer) 51 L, Glucose 382 H, Calcium 9.8, Total Bilirubin 0.5, AST 73 H, ALT 31, Alkaline Phosphatase 182 H, Total Protein 7.8, Albumin 4.7, Globulin 3.1, Albumin/Globulin Ratio 1.5 09/17/20 12:30: Lipase 974 H 09/17/20 14:00: Urine Color Yellow, Urine Appearance Cloudy, Urine pH 5.5, Ur Specific [place] <= 1.005, Urine Protein Negative, Urine Glucose (UA) 3+, Urine Ketones Negative, Urine Blood Trace-l, Urine Nitrate Negative, Urine Bilirubin Negative, Urine Urobilinogen 0.2, Ur Leukocyte Esterase 1+ A, Urine RBC None, Urine WBC 20-50, Ur Squamous Epith Cells 10-20, Urine Bacteria None, WBC Casts Occasional 09/17/20 15:36: Lactate 3.0 H Result diagrams: 09/17/20 12:30 09/17/20 12:30 Orders (Tests/Meds): ED MEDICATIONS Discontinued Medications Generic Name Dose Route Start Last Admin Trade Name Freq PRN Reason Stop Dose Admin Lactated Ringer's 1,000 mls @ 999 mls/hr 09/17/20 13:15 09/17/20 14:17 Lactated Ringer's 1000 Ml Bag IV 09/17/20 14:15 999 mls/hr .Q1H1M KATERIN Administration Iopamidol 75 ml 09/17/20 13:22 09/17/20 13:24 Iopamidol-370 (76%);100ml Bottle IV 09/17/20 13:23 75 ml ONCE ONE Administration Morphine Sulfate 4 mg 09/17/20 12:39 09/17/20 12:53 Morphine 4mg/Ml Syringe IV 10/17/20 12:38 4 mg Q2HP PRN Administration Breakthru Moderate Pain Morphine Sulfate 4 mg 09/17/20 17:02 09/17/20 17:03 Morphine 4mg/Ml Syringe IV 09/17/20 17:03 4 mg ONCE ONE Adm
[2020-09-17 12:51] LABS: Chloride 104 mmol/L (98-107); Potassium 4.1 mmoL/L (3.5-5.1); Sodium 134 mmol/L (136-145)
[2020-09-17 12:54] LABS: Alanine Aminotransferase 31 U/L (12-78); Albumin Level 4.7 g/dl (3.5-5.0); Albumin/Globulin Ratio 1.5 (1.1-1.8); Alkaline Phosphatase 182 U/L (38-126); Anion Gap 14.1 mEq/L (5-15); Aspartate Amino Transferase 73 U/L (14-36); Bilirubin,Total 0.5 mg/dl (0.2-1.3); Blood Urea Nitrogen 19 mg/dl (7-17); Carbon Dioxide 20 mmol/L (22.0-30.0); Creatinine Clearance Estimated 50 mL/min (50-200); Estimated Glomerular Filt Rate 42 ml/min (>60); GFR (African American) 51 ML/MIN (>60); Globulin 3.1 g/dL (1.3-3.2); Total Protein,Serum 7.8 g/dl (6.3-8.2)
[2020-09-17 12:55] LABS: Calcium 9.8 mg/dl (8.4-10.2); Glucose 382 mg/dl (74-100)
[2020-09-17 13:01] LABS: Lipase 974 U/L (23-300)
--- NOTE | 2020-09-17 13:03 | PC.NURSE ---
Notified Dr Pichardo of notification lab result of Lipase 974
[2020-09-17 13:04] VITALS: BP 151/64; PULSE 82; RESP 16; O2SAT 94
--- NOTE | 2020-09-17 13:05 | PC.NURSE ---
pt going to ct
--- NOTE | 2020-09-17 13:33 | INFXCTL.NOTE ---
pt still in ct
--- NOTE | 2020-09-17 13:43 | PC.NURSE ---
pt back from ct
[2020-09-17 14:00] VITALS: BP 149/79; PULSE 85; RESP 16; O2SAT 99
--- NOTE | 2020-09-17 15:34 | PC.NURSE ---
calling [facility] for [facility] to be transported [place] [facility]
[2020-09-17 15:40] LABS: Appearance,Urine CLOUDY (Clear); Bilirubin,Urine Negative (Negative); Blood, Urine TRACE-L (Negative); Color,Urine YELLOW (Yellow); Glucose,Urine (UA) 3+ (Negative); Ketones,Urine Negative (Negative); Leukocyte Esterase,Urine 1+ (Negative); Microscopic, Urine URINE MICROSCOPIC (MICROSCOPIC); Nitrate,Urine Negative (Negative); PH,Urine 5.5 (5.0-8.5); Protein,Urine Negative (Negative); Specific Gravity, Urine <= 1.005 (1.005-1.030); Urobilinogen,Urine 0.2 EU/dl (0.2)
--- NOTE | 2020-09-17 15:44 | PC.NURSE ---
talked to transfer center and they stated that they would put her on the list
--- NOTE | 2020-09-17 15:45 | PC.NURSE ---
called back and spoke with the and stated that we could send pt to [facility] would be an er to er transfer, nor i caught the drs name
[2020-09-17 15:49] LABS: WBC,Urine 20-50 #/hpf (0-3)
[2020-09-17 15:50] LABS: White Blood Cell Casts,Urine Occasional #/lpf (0)
--- NOTE | 2020-09-17 16:22 | PC.NURSE ---
Report called to [facility]
--- NOTE | 2020-09-17 16:23 | PC.NURSE ---
Awaiting on [facility] to come to transfer
[2020-09-17 16:30] VITALS: BP 154/71; PULSE 91; O2SAT 95
[2020-09-17 17:08] VITALS: BP 154/71; PULSE 91; RESP 16; TEMP 36.7; O2SAT 95
[2020-09-17 19:42] LABS: Reflex Lactic Add Lactic Reflex
== END 2020-09-17 17:11 | disposition short-term general hospital (02) ==
PROVIDERS: Emergency Provider Emergency Medicine; PCP Internal Medicine Adolescent Medicine
DX: K56.49 Other impaction of intestine (principal); K58.9 Irritable bowel syndrome, unspecified; I25.10 Atherosclerotic heart disease of native coronary artery without angina pectoris; J44.9 Chronic obstructive pulmonary disease, unspecified; I10 Essential (primary) hypertension; E11.65 Type 2 diabetes mellitus with hyperglycemia; E78.5 Hyperlipidemia, unspecified; E03.9 Hypothyroidism, unspecified; F17.210 Nicotine dependence, cigarettes, uncomplicated; Z88.2 Allergy status to sulfonamides; Z88.5 Allergy status to narcotic agent; Z88.8 Allergy status to other drugs, medicaments and biological substances; Z79.899 Other long term (current) drug therapy
CPT/HCPCS: 36415; 74177; 80053; 81001; 83605; 83690; 85025; 87086; 87088; 87186; 96365; 96375; 96376; 99284; J2405; Q9967

== ENCOUNTER → 2020-09-29 16:16 | Outpatient (CLI) | payer MEDICARE, MEDICAID, SELFPAY ==
[2020-09-29 16:36] LABS: Basophils # 0.1 K/mm3 (0-0.2); Eosinophils # 0.2 K/mm3 (0.0-0.4); Eosinophils % 1.9 % (0.1-12.0); Hematocrit 35.2 % (37.0-47.0); Hemoglobin 11.4 g/dL (12.2-16.2); Lymphocytes # 2.6 K/mm3 (0.7-4.5); Lymphocytes % 23.7 % (10-50); Mean Corpuscular HGB Conc 32.4 g/dL (31.8-35.4); Mean Corpuscular Hemoglobin 27.3 pg (27.0-31.2); Mean Corpuscular Volume 84.1 fl (81-99); Mean Platelet Volume 7.4 fl (7.4-10.4); Monocytes # 0.5 K/mm3 (0.1-1.0); Monocytes % 4.5 % (1.7-9.3); Neutrophils # 7.6 K/mm3 (1.8-7.8); Neutrophils % 68.9 % (37.0-80.0); Platelet Count 335 K/mm3 (142-424); Red Blood Count 4.19 M/mm3 (4.20-5.40); Red Cell Distribution Width 14.4 % (11.5-17.5)
[2020-09-29 17:57] LABS: Alanine Aminotransferase 18 U/L (12-78); Albumin Level 4.4 g/dl (3.5-5.0); Albumin/Globulin Ratio 1.6 (1.1-1.8); Alkaline Phosphatase 184 U/L (38-126); Anion Gap 15.5 mEq/L (5-15); Aspartate Amino Transferase 57 U/L (14-36); Bilirubin,Total 0.3 mg/dl (0.2-1.3); Blood Urea Nitrogen 17 mg/dl (7-17); Calcium 10.1 mg/dl (8.4-10.2); Carbon Dioxide 24 mmol/L (22.0-30.0); Chloride 102 mmol/L (98-107); Estimated Glomerular Filt Rate 27 ml/min (>60); GFR (African American) 33 ML/MIN (>60); Globulin 2.8 g/dL (1.3-3.2); Glucose 102 mg/dl (74-100); Potassium 4.5 mmoL/L (3.5-5.1); Sodium 137 mmol/L (136-145); Total Protein,Serum 7.2 g/dl (6.3-8.2)
[2020-09-29 18:28] LABS: Thyroid Stimulating Hormone 5.53 uIU/mL (0.465-4.68)
== END ==
PROVIDERS: Visit Provider Nurse Practitioner Family
DX: E11.65 Type 2 diabetes mellitus with hyperglycemia (principal); E03.9 Hypothyroidism, unspecified; L03.311 Cellulitis of abdominal wall
CPT/HCPCS: 36415; 80053; 84443; 85025

== ENCOUNTER → 2020-10-07 13:03 | Outpatient (CLI) | payer MEDICARE, MEDICAID, SELFPAY ==
[2020-10-07 14:11] LABS: Basophils # 0.1 K/mm3 (0-0.2); Basophils % 0.9 % (0.1-2.0); Eosinophils # 0.3 K/mm3 (0.0-0.4); Eosinophils % 2.5 % (0.1-12.0); Hematocrit 35.9 % (37.0-47.0); Lymphocytes # 1.8 K/mm3 (0.7-4.5); Mean Corpuscular HGB Conc 30.5 g/dL (31.8-35.4); Mean Corpuscular Hemoglobin 26.5 pg (27.0-31.2); Mean Corpuscular Volume 86.9 fl (81-99); Mean Platelet Volume 7.3 fl (7.4-10.4); Monocytes # 0.7 K/mm3 (0.1-1.0); Neutrophils # 7.2 K/mm3 (1.8-7.8); Neutrophils % 71.6 % (37.0-80.0); Platelet Count 201 K/mm3 (142-424); Red Blood Count 4.13 M/mm3 (4.20-5.40); Red Cell Distribution Width 14.4 % (11.5-17.5); White Blood Count 10.1 K/mm3 (4.8-10.8)
[2020-10-07 14:17] LABS: Anion Gap 13.6 mEq/L (5-15); Blood Urea Nitrogen 15 mg/dl (7-17); Calcium 9.8 mg/dl (8.4-10.2); Carbon Dioxide 22 mmol/L (22.0-30.0); Chloride 108 mmol/L (98-107); Estimated Glomerular Filt Rate 36 ml/min (>60); GFR (African American) 43 ML/MIN (>60); Glucose 154 mg/dl (74-100); Potassium 4.6 mmoL/L (3.5-5.1); Sodium 139 mmol/L (136-145)
== END ==
PROVIDERS: Visit Provider Nurse Practitioner Family
DX: D72.829 Elevated white blood cell count, unspecified (principal)
CPT/HCPCS: 36415; 80048; 85025

== ENCOUNTER → 2020-10-25 17:52 | Outpatient (CLI) | payer MEDICARE, MEDICAID, SELFPAY ==
[2020-10-25 18:07] LABS: Basophils # 0.2 K/mm3 (0-0.2); Basophils % 1.9 % (0.1-2.0); Eosinophils # 0.3 K/mm3 (0.0-0.4); Eosinophils % 3.6 % (0.1-12.0); Hematocrit 29.8 % (37.0-47.0); Hemoglobin 9.5 g/dL (12.2-16.2); Lymphocytes # 2.3 K/mm3 (0.7-4.5); Lymphocytes % 28.4 % (10-50); Mean Corpuscular Hemoglobin 27.1 pg (27.0-31.2); Mean Corpuscular Volume 84.9 fl (81-99); Mean Platelet Volume 7.6 fl (7.4-10.4); Monocytes # 0.4 K/mm3 (0.1-1.0); Monocytes % 5.4 % (1.7-9.3); Neutrophils % 60.7 % (37.0-80.0); Platelet Count 400 K/mm3 (142-424); Red Blood Count 3.51 M/mm3 (4.20-5.40); Red Cell Distribution Width 15.5 % (11.5-17.5); White Blood Count 8.2 K/mm3 (4.8-10.8)
[2020-10-25 18:16] LABS: Alanine Aminotransferase 11 U/L (12-78); Albumin Level 4.3 g/dl (3.5-5.0); Albumin/Globulin Ratio 1.4 (1.1-1.8); Alkaline Phosphatase 175 U/L (38-126); Anion Gap 8.6 mEq/L (5-15); Aspartate Amino Transferase 33 U/L (14-36); Bilirubin,Total 0.3 mg/dl (0.2-1.3); Blood Urea Nitrogen 12 mg/dl (7-17); Calcium 9.9 mg/dl (8.4-10.2); Carbon Dioxide 33 mmol/L (22.0-30.0); Chloride 101 mmol/L (98-107); Estimated Glomerular Filt Rate 42 ml/min (>60); GFR (African American) 51 ML/MIN (>60); Globulin 3.1 g/dL (1.3-3.2); Glucose 111 mg/dl (74-100); Potassium 4.6 mmoL/L (3.5-5.1); Sodium 138 mmol/L (136-145); Total Protein,Serum 7.4 g/dl (6.3-8.2)
[2020-10-25 18:21] LABS: C-Reactive Protein 8.7 mg/L (0-4)
== END ==
PROVIDERS: Visit Provider Internal Medicine Infectious Disease
DX: R10.9 Unspecified abdominal pain (principal)
CPT/HCPCS: 80053; 85025; 86140

== ENCOUNTER 2020-10-28 15:12 | Emergency (ER) | payer MEDICARE, MEDICAID, SELFPAY ==
[2020-10-28 15:16] VITALS: BP 149/52; PULSE 74; RESP 16; TEMP 37.1; O2SAT 98; BMI 27.3
--- NOTE | 2020-10-28 15:32 | CT_ITS ---
PROCEDURE INFORMATION: Exam: CT Abdomen And Pelvis With Contrast Exam date and time: 10/28/2020 3:32 PM Age: 55 years old Clinical indication: Abdominal pain; Generalized; Prior surgery; Surgery date: 6+ months; Surgery type: Colon; Patient HX: Abd distention, wound vac on old colostomy site; Additional info: Abd pain TECHNIQUE: Imaging protocol: Computed tomography of the abdomen and pelvis with contrast. Radiation optimization: All CT scans at this facility use at least one of these dose optimization techniques: automated exposure control; mA and/or kV adjustment per patient size (includes targeted exams where dose is matched to clinical indication); or iterative reconstruction. Contrast material: ISOVUE; Contrast volume: 75 ml; Contrast route: IV; COMPARISON: Prior CT ABDOMEN PELVIS W CON 09/17/2020 1:12 PM is not available on PACS for comparison at this time. Report from that study is reviewed. FINDINGS: Tubes, catheters and devices: Electronic device in the right buttock with leads extending through the left sacral ala. Lungs: A 6 mm noncalcified solid nodule at the posterolateral right lower lobe series 3, image 5. No pulmonary consolidation. Minimal posterior dependent atelectasis in the lungs. Heart: Mild cardiomegaly. Multiple coronary artery calcifications. Liver: Hepatomegaly. Slightly heterogeneous liver attenuation/enhancement, probably underlying patchy fatty change. No discrete mass. Calcified granuloma. Gallbladder and bile ducts: The gallbladder is unremarkable. No calcified stones or biliary dilatation. Pancreas: Pancreatic duct within upper limits normal 3-4 mm at the pancreas head. No mass. No CT findings of acute pancreatitis. Spleen: Splenomegaly approximate 16 cm. Multiple calcified granulomas. Adrenal glands: The adrenal glands are normal. Kidneys and ureters: Left upper pole density coronal series 601, image 46 is probably some dense excreted contrast, though this could be an underlying nonobstructing urinary tract stones; no precontrast images were obtained for comparison. Both renal collecting systems appear partially duplicated. No hydronephrosis, hydroureter, or obstructing calcified ureteral stones. Stomach and bowel: Post partial colectomy, with a diverting right upper quadrant colostomy, which has a normal appearance.There is no evidence of intestinal perforation or obstruction. No acute findings in the stomach. Appendix: No findings of appendicitis. Intraperitoneal space: Trace free fluid in the left abdomen and pelvis. intraperitoneal abscess collection. No free intraperitoneal air. Vasculature: The vasculature demonstrates scattered mild atherosclerotic calcification. There is no aortic aneurysm. No portal venous gas. Lymph nodes: No significantly enlarged lymph nodes by short axis criteria. Urinary bladder: The bladder is normal. Reproductive: Uterus and ovaries appeared within normal limits for age. There are mild left adnexal varices and distended uterine veins on the left, coronal series 601 images 42-45. Bones/joints: There is no evidence of acute fracture. Soft tissues: Anterior left upper quadrant abdominal wall surgical changes with a wound VAC at the prior colostomy site. No organized hematoma or abscess collection seen. Subcutaneous nodules in the anterior right abdominal wall are indeterminate, and could be injection granulomas rather than infection or neoplasm, series 3 images 76-79; prior images not available to compare. IMPRESSION: 1. There is no evidence of intestinal perforation or obstruction. New right upper quadrant diverting colostomy with normal appearance. No significant felipe
--- NOTE | 2020-10-28 15:46 | HMH.EDGENADL ---
ED Disposition Clinical Impression: Chronic anemia Abdominal pain Qualifiers: Abdominal location: generalized Qualified Code(s): R10.84 - Generalized abdominal pain Disposition: Home, Self-Care Condition on Discharge: Good Instructions: DI for Abdominal Pain-Adult Prescriptions: Hydrocod/Acet 5/325 mg [[place] 5/325mg tablet] 1 tab PO Q6HP PRN #10 tab PRN Reason: Moderate Pain Transmission Status: Sent to [facility] #[id number] Referrals: Toshia Kline APRN [Primary Care Provider] - - Critical Care Critical Care Time: No Attestation: On 10/28/20, the high probability of a clinically significant, sudden or life threatening deterioration of the following system(s) required my full and direct attention, intervention and personal management. The time I documented below is in addition to time spent performing reported procedures but includes the following listed in this critical care notation. Medical Decision Making - Medical Records Medical records reviewed: Yes: I reviewed the patient's medical records. - Rob Inquiry Pt receiving controlled substance: Yes Rob was queried for this patient: No Reason not queried -: Emergent pt cond-no time Risks and benefits of using a controlled substance: were discussed with pt by me Vital Signs: 10/28/20 15:16 10/28/20 16:00 10/28/20 16:30 Temperature 98.8 F Temperature Source Oral Pulse Rate 70 67 Pulse Rate [Right Radial] 74 Respiratory Rate 16 Blood Pressure 156/63 H 163/69 H Blood Pressure [Right Arm] 149/52 H Blood Pressure Mean 124 131 Blood Pressure Mean [Right Arm] 84 02 Sat by Pulse Oximetry 98 96 97 Oxygen Delivery Method Room Air - Lab Data Lab Results 10/28/20 15:44: WBC 6.5, RBC 3.23 L, Hgb 8.9 L, Hct 27.6 L, MCV 85.4, MCH 27.4, MCHC 32.1, RDW 15.4, Plt Count 253 D, MPV 7.5, Neut % (Auto) 54.6, Lymph % (Auto) 33.3, [place] % (Auto) 6.5, Eos % (Auto) 4.3, Baso % (Auto) 1.2, Neut # (Auto) 3.5, Lymph # (Auto) 2.2, [place] # (Auto) 0.4, Eos # (Auto) 0.3, Baso # (Auto) 0.1 10/28/20 15:44: Sodium 137, Potassium 4.8, Chloride 103, Carbon Dioxide 28, Anion Gap 10.8, BUN 11, Creatinine 1.20 H, Estimated Creat Clear 52, Estimated GFR 46 L, Est GFR ( Amer) 56 L, Glucose 116 H, Calcium 9.5, Total Bilirubin 0.4, AST 36, ALT 14 D, Alkaline Phosphatase 159 H, Total Protein 6.9, Albumin 4.0, Globulin 2.9, Albumin/Globulin Ratio 1.4, Lipase 714 H Result diagrams: 10/28/20 15:44 10/28/20 15:44 Orders (Tests/Meds): ED MEDICATIONS Discontinued Medications Generic Name Dose Route Start Last Admin Trade Name Freq PRN Reason Stop Dose Admin Iopamidol 75 ml 10/28/20 16:55 10/28/20 16:56 Iopamidol-370 (76%);100ml Bottle IV 10/28/20 16:56 75 ml ONCE ONE Administration Morphine Sulfate 4 mg 10/28/20 15:33 10/28/20 15:54 Morphine 4mg/Ml Syringe IV 10/28/20 15:34 4 mg ONCE ONE Administration Ondansetron HCl 4 mg 10/28/20 15:33 10/28/20 15:54 Ondansetron 4mg/2ml Vial IV 10/28/20 15:34 4 mg ONCE ONE Administration Sodium Chloride 10 ml 10/28/20 16:55 10/28/20 16:56 Sodium Chloride 0.9% 10ml Syr (Rad Only) IV 10/28/20 16:56 10 ml ONCE ONE Administration - CT Data CT Scan: Abdomen, Pelvis Time Received: 18:[address] Reviewed: Yes: I have reviewed the patient's CT results, I have viewed the radiologist's interpretation Findings Narrative: IMPRESSION: 1. There is no evidence of intestinal perforation or obstruction. New right upper quadrant diverting colostomy with normal appearance. No significant bowel dilatation or significant mucosal thickening. 2. Wound VAC at prior left upper quadrant colostomy site; no underlying abscess or hematoma. 3. Trace free fluid in the abdomen and pelvis, but no organized intraperitoneal abscess collection or free air. 4. Hepatosplenomegaly. 5. 6 mm right lower pulmonary nodule, possibly corresponding with a chronic 7 mm n
[2020-10-28 16:00] VITALS: BP 156/63; PULSE 70; O2SAT 96
[2020-10-28 16:01] LABS: Basophils # 0.1 K/mm3 (0-0.2); Basophils % 1.2 % (0.1-2.0); Eosinophils # 0.3 K/mm3 (0.0-0.4); Eosinophils % 4.3 % (0.1-12.0); Hematocrit 27.6 % (37.0-47.0); Hemoglobin 8.9 g/dL (12.2-16.2); Lymphocytes # 2.2 K/mm3 (0.7-4.5); Lymphocytes % 33.3 % (10-50); Mean Corpuscular HGB Conc 32.1 g/dL (31.8-35.4); Mean Corpuscular Hemoglobin 27.4 pg (27.0-31.2); Mean Corpuscular Volume 85.4 fl (81-99); Mean Platelet Volume 7.5 fl (7.4-10.4); Monocytes # 0.4 K/mm3 (0.1-1.0); Monocytes % 6.5 % (1.7-9.3); Neutrophils # 3.5 K/mm3 (1.8-7.8); Neutrophils % 54.6 % (37.0-80.0); Platelet Count 253 K/mm3 (142-424); Red Blood Count 3.23 M/mm3 (4.20-5.40); Red Cell Distribution Width 15.4 % (11.5-17.5); White Blood Count 6.5 K/mm3 (4.8-10.8)
[2020-10-28 16:13] LABS: Alanine Aminotransferase 14 U/L (12-78); Albumin/Globulin Ratio 1.4 (1.1-1.8); Alkaline Phosphatase 159 U/L (38-126); Anion Gap 10.8 mEq/L (5-15); Aspartate Amino Transferase 36 U/L (14-36); Bilirubin,Total 0.4 mg/dl (0.2-1.3); Blood Urea Nitrogen 11 mg/dl (7-17); Calcium 9.5 mg/dl (8.4-10.2); Carbon Dioxide 28 mmol/L (22.0-30.0); Chloride 103 mmol/L (98-107); Creatinine Clearance Estimated 52 mL/min (50-200); Estimated Glomerular Filt Rate 46 ml/min (>60); GFR (African American) 56 ML/MIN (>60); Globulin 2.9 g/dL (1.3-3.2); Glucose 116 mg/dl (74-100); Potassium 4.8 mmoL/L (3.5-5.1); Sodium 137 mmol/L (136-145); Total Protein,Serum 6.9 g/dl (6.3-8.2)
[2020-10-28 16:18] LABS: Lipase 714 U/L (23-300)
[2020-10-28 16:30] VITALS: BP 163/69; PULSE 67; O2SAT 97
[2020-10-28 18:34] VITALS: BP 141/48; PULSE 61; RESP 16; TEMP 37.1; O2SAT 98
== END 2020-10-28 18:37 | disposition home or self-care (01) ==
PROVIDERS: Emergency Provider Emergency Medicine; PCP Nurse Practitioner Family
DX: R10.84 Generalized abdominal pain (principal); D64.9 Anemia, unspecified; K59.01 Slow transit constipation; I25.10 Atherosclerotic heart disease of native coronary artery without angina pectoris; E11.9 Type 2 diabetes mellitus without complications; I10 Essential (primary) hypertension; J44.9 Chronic obstructive pulmonary disease, unspecified; E78.5 Hyperlipidemia, unspecified; E03.9 Hypothyroidism, unspecified; F17.210 Nicotine dependence, cigarettes, uncomplicated; Z88.2 Allergy status to sulfonamides; Z88.5 Allergy status to narcotic agent; Z88.8 Allergy status to other drugs, medicaments and biological substances; Z79.899 Other long term (current) drug therapy
CPT/HCPCS: 74177; 80053; 83690; 85025; 96374; 96375; 99282; J2405; Q9967

== ENCOUNTER → 2020-10-31 18:01 | Outpatient (CLI) | payer MEDICARE, MEDICAID, SELFPAY ==
[2020-10-31 18:19] LABS: Basophils # 0.1 K/mm3 (0-0.2); Basophils % 1.4 % (0.1-2.0); Eosinophils # 0.5 K/mm3 (0.0-0.4); Eosinophils % 7.1 % (0.1-12.0); Hematocrit 30.9 % (37.0-47.0); Hemoglobin 9.9 g/dL (12.2-16.2); Lymphocytes # 2.2 K/mm3 (0.7-4.5); Lymphocytes % 35.2 % (10-50); Mean Corpuscular HGB Conc 32.2 g/dL (31.8-35.4); Mean Corpuscular Hemoglobin 27.2 pg (27.0-31.2); Mean Corpuscular Volume 84.6 fl (81-99); Mean Platelet Volume 7.6 fl (7.4-10.4); Monocytes # 0.4 K/mm3 (0.1-1.0); Monocytes % 6.6 % (1.7-9.3); Neutrophils # 3.1 K/mm3 (1.8-7.8); Neutrophils % 49.7 % (37.0-80.0); Platelet Count 227 K/mm3 (142-424); Red Blood Count 3.65 M/mm3 (4.20-5.40); Red Cell Distribution Width 15.5 % (11.5-17.5); White Blood Count 6.3 K/mm3 (4.8-10.8)
[2020-10-31 18:39] LABS: Alanine Aminotransferase 17 U/L (12-78); Albumin Level 4.5 g/dl (3.5-5.0); Albumin/Globulin Ratio 1.4 (1.1-1.8); Alkaline Phosphatase 211 U/L (38-126); Anion Gap 12.3 mEq/L (5-15); Aspartate Amino Transferase 54 U/L (14-36); Bilirubin,Total 0.4 mg/dl (0.2-1.3); Blood Urea Nitrogen 7 mg/dl (7-17); Calcium 9.8 mg/dl (8.4-10.2); Carbon Dioxide 29 mmol/L (22.0-30.0); Chloride 102 mmol/L (98-107); Estimated Glomerular Filt Rate 42 ml/min (>60); GFR (African American) 51 ML/MIN (>60); Globulin 3.3 g/dL (1.3-3.2); Glucose 149 mg/dl (74-100); Potassium 4.3 mmoL/L (3.5-5.1); Sodium 139 mmol/L (136-145); Total Protein,Serum 7.8 g/dl (6.3-8.2)
[2020-10-31 18:59] LABS: Erythrocyte Sedimentation Rate 110 mm/hr (0-30)
== END ==
PROVIDERS: Visit Provider Internal Medicine Infectious Disease
DX: K65.0 Generalized (acute) peritonitis (principal); K94.02 Colostomy infection; L03.311 Cellulitis of abdominal wall; L02.211 Cutaneous abscess of abdominal wall
CPT/HCPCS: 80053; 85025; 85651; 86140

== ENCOUNTER 2020-11-04 22:41 | Emergency (ER) | payer MEDICARE, MEDICAID, SELFPAY ==
[2020-11-04 22:25] VITALS: BP 121/58; PULSE 75; RESP 16; TEMP 36.7; O2SAT 96; BMI 25.6
[2020-11-04 23:17] VITALS: BP 119/61; PULSE 81; RESP 16; TEMP 36.7; O2SAT 96
--- NOTE | 2020-11-04 23:22 | HMH.EDWNDL ---
ED Disposition Clinical Impression: Laceration Disposition: Home, Self-Care Condition on Discharge: Good Instructions: DI for Laceration Repair Additional Instructions: Pain with soap and water daily and keep dressed and dry. Have the sutures removed on day 5-6. Prescriptions: cephALEXin [Cephalexin 250mg Tab] 250 mg PO Q6H 5 Days #20 tab Transmission Status: Received by [facility] #[id number] Referrals: Toshia Kline APRN [Primary Care Provider] - Time of Disposition: 23:23 - Critical Care Critical Care Time: No Attestation: On 11/04/20, the high probability of a clinically significant, sudden or life threatening deterioration of the following system(s) required my full and direct attention, intervention and personal management. The time I documented below is in addition to time spent performing reported procedures but includes the following listed in this critical care notation. Medical Decision Making - Medical Records Medical records reviewed: Yes: I reviewed the patient's medical records. - Rob Inquiry Pt receiving controlled substance: No Vital Signs: 11/04/20 22:25 11/04/20 23:17 Temperature 98.0 F 98.0 F Temperature Source Oral Oral Pulse Rate 81 Pulse Rate [Right] 75 Respiratory Rate 16 16 Blood Pressure 119/61 Blood Pressure [Right Arm] 121/58 L Blood Pressure Mean [Right Arm] 79 02 Sat by Pulse Oximetry 96 Orders (Tests/Meds): ED MEDICATIONS Discontinued Medications Generic Name Dose Route Start Last Admin Trade Name Freq PRN Reason Stop Dose Admin Oxycodone/Acetaminophen 1 each 11/04/20 23:29 11/04/20 23:30 Oxycodone 5mg W/Apap 325mg Tablet PO 11/04/20 23:30 1 each ONCE ONE Administration Medical Decision Narrative: 55-year-old female who presents with a minor laceration to the back of the hand. Tdap is up-to-date. Laceration was repaired without difficulty and patient was given a prescription for Keflex and discharged home in good condition. Wound/Laceration HPI - General Chief Complaint: Wound/Laceration Stated Complaint: laeration Time Seen by Provider: 11/04/20 22:55 Mode of Arrival: EMS Limitations: No Limitations Description of Symptoms (Recalled from ER Triage Doc. by RN): pt states was cutting a pepper and knife slipped cut lt hand - History of Present Illness HPI narrative: -55 year-old female who presents by EMS after cutting the back of her hand while cutting peppers. Patient states this happened just prior to arrival. Tetanus is up-to-date. She has no weakness or numbness to the hand. Takes Plavix but no other blood thinners. - Related Data Home Medications Medication Instructions Recorded Confirmed albuterol sulfate 90 mcg/actuation 2 puff INHALATION Q4-6H PRN 10/16/17 01/29/20 aerosol inhaler lamotrigine 100 mg tablet 100 mg PO BID 10/16/17 01/29/20 venlafaxine 150 mg 150 mg PO DAILY cap 10/16/17 01/29/20 capsule,extended release 24 hr buspirone 10 mg tablet 10 mg PO BID 10/17/17 01/29/20 fluticasone 100 mcg-salmeterol 50 1 puff INHALATION BID PRN 05/13/18 01/29/20 mcg/dose blistr powdr for inhalation potassium chloride 20 mEq 20 meq PO BID tab 05/13/18 01/29/20 tablet,extended release Clopidogrel Bisulfate [Plavix 75mg 75 mg PO DAILY 05/19/18 01/29/20 Tab] alprazolam 1 mg tablet 1 mg PO TID PRN tab 07/02/19 01/29/20 hydroxyzine HCl 25 mg tablet 25 mg PO TID PRN tab 07/02/19 01/29/20 diltiazem HCl 120 mg 120 mg PO DAILY 08/10/19 01/29/20 capsule,extended release 24 hr levothyroxine 137 mcg tablet 137 mcg PO DAILY 08/10/19 01/29/20 Cholecalciferol (Vitamin D3) 2,000 unit PO DAILY 12/19/19 01/29/20 [Vitamin D3 1,000 Unit Cap] Cyanocobalamin (Vitamin B-12) 1,000 mcg PO DAILY 12/19/19 01/29/20 [Vitamin B-12 1000mcg Tablet] Famotidine 20 mg PO DAILY 12/19/19 01/29/20 Linaclotide [Linzess] 290 mcg PO DAILY 12/19/19 01/29/20 Magnesium Oxide [Mag-Ox 400mg Tab] 800 mg PO BID
== END 2020-11-04 23:34 | disposition home or self-care (01) ==
PROVIDERS: Emergency Provider Student in an Organized Health Care Education/Training Program; PCP Nurse Practitioner Family
DX: S61.412A Laceration without foreign body of left hand, initial encounter (principal); W26.0XXA Contact with knife, initial encounter; Y92.010 Kitchen of single-family (private) house as the place of occurrence of the external cause; J44.9 Chronic obstructive pulmonary disease, unspecified; I25.10 Atherosclerotic heart disease of native coronary artery without angina pectoris; F41.8 Other specified anxiety disorders; I10 Essential (primary) hypertension; E03.9 Hypothyroidism, unspecified; E78.5 Hyperlipidemia, unspecified; E11.9 Type 2 diabetes mellitus without complications; Z79.899 Other long term (current) drug therapy; Z88.2 Allergy status to sulfonamides; Z88.8 Allergy status to other drugs, medicaments and biological substances; F17.210 Nicotine dependence, cigarettes, uncomplicated
CPT/HCPCS: 12002; 99282

== ENCOUNTER 2020-11-19 22:14 | Emergency (ER) | payer MEDICARE, MEDICAID, SELFPAY ==
[2020-11-19 22:16] VITALS: BP 132/56; PULSE 85; RESP 17; TEMP 37.6; O2SAT 99; BMI 29.2
--- NOTE | 2020-11-19 22:43 | PC.NURSE ---
and Dylon Callahan RN at bedside to exam pt's stoma site. MD examined stoma and placed pt's prescribed cream, Santyl, to stoma and was redressed with tegaderm and telfa.
--- NOTE | 2020-11-19 22:45 | HMH.EDSKAF ---
ED Disposition Clinical Impression: Superficial incisional surgical site infection Disposition: Home, Self-Care Condition on Discharge: Good Instructions: DI for Surgical Site Infection Additional Instructions: use meds and see pcp and surg for follow up Referrals: Toshia Kline APRN [Primary Care Provider] - - Critical Care Critical Care Time: No Attestation: On 11/19/20, the high probability of a clinically significant, sudden or life threatening deterioration of the following system(s) required my full and direct attention, intervention and personal management. The time I documented below is in addition to time spent performing reported procedures but includes the following listed in this critical care notation. Medical Decision Making - Medical Records Medical records reviewed: Yes: I reviewed the patient's medical records. - Rob Inquiry Pt receiving controlled substance: No Vital Signs: 11/19/20 22:16 Temperature 99.6 F Temperature Source Oral Pulse Rate [Right] 85 Respiratory Rate 17 Blood Pressure [Right Arm] 132/56 L Blood Pressure Mean [Right Arm] 81 Blood Pressure Source [Right Arm] Automatic Cuff 02 Sat by Pulse Oximetry 99 Oxygen Delivery Method Room Air Skin/Abscess/FB HPI - General Chief complaint: Skin/Abscess/Foreign Body Stated complaint: Open Wound Possible infected,pain Time Seen by Provider: 11/19/20 22:30 Mode of Arrival: Family Vehicle Source of Information: Patient, Medical Record Limitations: No Limitations Description of Symptoms (Recalled from ER Triage Doc. by RN): Pt c/o pain, tenderness, and swelling above her past previous stoma . She is concerned it is infected. Pt is following a specialist, Dr. Aviles, at [facility]. She was given a new topical medication to place to the stoma, Santyl. Pt has been using this daily. - History of Present Illness HPI narrative: recent abd surg and pt concerned about possible infection at surg site - was in hospital yesterday for chest pain - no other c/o no fever MD complaint: other (surg site) Onset (ago): day(s) Tetanus up to date: unsure Severity: moderate Associated symptoms: denies other symptoms - Related Data Home Medications Medication Instructions Recorded Confirmed albuterol sulfate 90 mcg/actuation 2 puff INHALATION Q4-6H PRN 10/16/17 01/29/20 aerosol inhaler lamotrigine 100 mg tablet 100 mg PO BID 10/16/17 01/29/20 venlafaxine 150 mg 150 mg PO DAILY cap 10/16/17 01/29/20 capsule,extended release 24 hr buspirone 10 mg tablet 10 mg PO BID 10/17/17 01/29/20 fluticasone 100 mcg-salmeterol 50 1 puff INHALATION BID PRN 05/13/18 01/29/20 mcg/dose blistr powdr for inhalation potassium chloride 20 mEq 20 meq PO BID tab 05/13/18 01/29/20 tablet,extended release Clopidogrel Bisulfate [Plavix 75mg 75 mg PO DAILY 05/19/18 01/29/20 Tab] alprazolam 1 mg tablet 1 mg PO TID PRN tab 07/02/19 01/29/20 hydroxyzine HCl 25 mg tablet 25 mg PO TID PRN tab 07/02/19 01/29/20 diltiazem HCl 120 mg 120 mg PO DAILY 08/10/19 01/29/20 capsule,extended release 24 hr levothyroxine 137 mcg tablet 137 mcg PO DAILY 08/10/19 01/29/20 Cholecalciferol (Vitamin D3) 2,000 unit PO DAILY 12/19/19 01/29/20 [Vitamin D3 1,000 Unit Cap] Cyanocobalamin (Vitamin B-12) 1,000 mcg PO DAILY 12/19/19 01/29/20 [Vitamin B-12 1000mcg Tablet] Famotidine 20 mg PO DAILY 12/19/19 01/29/20 Linaclotide [Linzess] 290 mcg PO DAILY 12/19/19 01/29/20 Magnesium Oxide [Mag-Ox 400mg Tab] 800 mg PO BID 12/19/19 01/29/20 Nitroglycerin 0.4 mg SL Q5MINP PRN 12/19/19 01/29/20 Previous Rx's Medication Instructions Recorded aspirin 81 mg tablet,delayed 81 mg PO DAILY #30 tab 11/25/19 release propranolol 160 mg capsule,24 See Rx Instructions .ROUTE 07/21/20 hr,extended release .COMPLEX #90 capsule Oxycodone HCl [Oxycodone 5mg tab 5 mg PO TID #10 tab 10/28/20 (IR)] cephALEXin [Cephalexin 250mg Tab] 250 mg PO Q6H 5 Days #20 t
[2020-11-19 23:03] VITALS: BP 132/68; PULSE 83; RESP 16; TEMP 37.2; O2SAT 100
== END 2020-11-19 23:05 | disposition home or self-care (01) ==
PROVIDERS: Emergency Provider Emergency Medicine; PCP Nurse Practitioner Family
DX: T81.41XA Infection following a procedure, superficial incisional surgical site, initial encounter (principal); I25.10 Atherosclerotic heart disease of native coronary artery without angina pectoris; J44.9 Chronic obstructive pulmonary disease, unspecified; F41.8 Other specified anxiety disorders; I10 Essential (primary) hypertension; E78.5 Hyperlipidemia, unspecified; E11.9 Type 2 diabetes mellitus without complications; E03.9 Hypothyroidism, unspecified; F17.210 Nicotine dependence, cigarettes, uncomplicated; Z87.442 Personal history of urinary calculi; Z88.2 Allergy status to sulfonamides; Z79.899 Other long term (current) drug therapy
CPT/HCPCS: 99281

== ENCOUNTER → 2020-11-30 11:08 | Outpatient (CLI) | payer MEDICARE, MEDICAID, SELFPAY ==
[2020-11-30 11:56] LABS: Basophils % 0.4 % (0.1-2.0); Eosinophils # 2.6 K/mm3 (0.0-0.4); Eosinophils % 27.5 % (0.1-12.0); Hematocrit 30.7 % (37.0-47.0); Hemoglobin 10.2 g/dL (12.2-16.2); Lymphocytes # 2.4 K/mm3 (0.7-4.5); Mean Corpuscular HGB Conc 33.3 g/dL (31.8-35.4); Mean Corpuscular Hemoglobin 28.5 pg (27.0-31.2); Mean Corpuscular Volume 85.7 fl (81-99); Mean Platelet Volume 7.7 fl (7.4-10.4); Monocytes # 0.5 K/mm3 (0.1-1.0); Monocytes % 5.6 % (1.7-9.3); Neutrophils # 3.9 K/mm3 (1.8-7.8); Neutrophils % 41.5 % (37.0-80.0); Platelet Count 262 K/mm3 (142-424); Red Blood Count 3.58 M/mm3 (4.20-5.40); Red Cell Distribution Width 16.2 % (11.5-17.5); White Blood Count 9.5 K/mm3 (4.8-10.8)
[2020-11-30 12:20] LABS: Chloride 107 mmol/L (98-107); Potassium 4.1 mmoL/L (3.5-5.1); Sodium 142 mmol/L (136-145)
[2020-11-30 12:22] LABS: Alanine Aminotransferase 17 U/L (12-78); Blood Urea Nitrogen 20 mg/dl (7-17); Estimated Glomerular Filt Rate 74 ml/min (>60); GFR (African American) 90 ML/MIN (>60)
[2020-11-30 12:23] LABS: Albumin Level 3.6 g/dl (3.5-5.0); Albumin/Globulin Ratio 1.3 (1.1-1.8); Alkaline Phosphatase 304 U/L (38-126); Anion Gap 12.1 mEq/L (5-15); Aspartate Amino Transferase 49 U/L (14-36); Bilirubin,Total 0.2 mg/dl (0.2-1.3); Calcium 9.3 mg/dl (8.4-10.2); Carbon Dioxide 27 mmol/L (22.0-30.0); Globulin 2.8 g/dL (1.3-3.2); Glucose 131 mg/dl (74-100); Total Protein,Serum 6.4 g/dl (6.3-8.2)
[2020-11-30 12:29] LABS: C-Reactive Protein 6.4 mg/L (0-4)
== END ==
PROVIDERS: Visit Provider Internal Medicine Adolescent Medicine
DX: K65.1 Peritoneal abscess (principal); L30.9 Dermatitis, unspecified; T81.43XA Infection following a procedure, organ and space surgical site, initial encounter
CPT/HCPCS: 36415; 80053; 85025; 86140

== ENCOUNTER → 2020-12-29 10:42 | Outpatient (CLI) | payer MEDICARE, MEDICAID, SELFPAY ==
[2020-12-29 11:09] LABS: Basophils # 0.1 K/mm3 (0-0.2); Basophils % 1.1 % (0.1-2.0); Eosinophils % 12.6 % (0.1-12.0); Hemoglobin 11.2 g/dL (12.2-16.2); Lymphocytes # 2.2 K/mm3 (0.7-4.5); Lymphocytes % 28.5 % (10-50); Mean Corpuscular Hemoglobin 30.2 pg (27.0-31.2); Mean Corpuscular Volume 88.7 fl (81-99); Mean Platelet Volume 7.7 fl (7.4-10.4); Monocytes # 0.4 K/mm3 (0.1-1.0); Monocytes % 5.5 % (1.7-9.3); Neutrophils # 4.1 K/mm3 (1.8-7.8); Neutrophils % 52.2 % (37.0-80.0); Platelet Count 243 K/mm3 (142-424); Red Blood Count 3.72 M/mm3 (4.20-5.40); Red Cell Distribution Width 17.8 % (11.5-17.5); White Blood Count 7.9 K/mm3 (4.8-10.8)
[2020-12-29 11:35] LABS: Alanine Aminotransferase 47 U/L (12-78); Albumin Level 3.9 g/dl (3.5-5.0); Albumin/Globulin Ratio 1.4 (1.1-1.8); Alkaline Phosphatase 274 U/L (38-126); Anion Gap 12.1 mEq/L (5-15); Aspartate Amino Transferase 92 U/L (14-36); Bilirubin,Total 0.4 mg/dl (0.2-1.3); Blood Urea Nitrogen 11 mg/dl (7-17); Carbon Dioxide 25 mmol/L (22.0-30.0); Chloride 105 mmol/L (98-107); Estimated Glomerular Filt Rate 65 ml/min (>60); GFR (African American) 78 ML/MIN (>60); Globulin 2.8 g/dL (1.3-3.2); Glucose 153 mg/dl (74-100); Potassium 4.1 mmoL/L (3.5-5.1); Sodium 138 mmol/L (136-145); Total Protein,Serum 6.7 g/dl (6.3-8.2)
[2020-12-29 11:41] LABS: C-Reactive Protein 11.2 mg/L (0-4)
[2020-12-29 12:05] LABS: Thyroid Stimulating Hormone 0.95 uIU/mL (0.465-4.68)
== END ==
PROVIDERS: Visit Provider Nurse Practitioner Family
DX: E03.9 Hypothyroidism, unspecified (principal); K65.1 Peritoneal abscess
CPT/HCPCS: 36415; 80053; 84443; 85025; 86140

== ENCOUNTER → 2021-01-10 17:37 | Outpatient (CLI) | payer MEDICARE, MEDICAID, SELFPAY ==
[2021-01-12 23:37] LABS: Neisseria gonorrhoeae, NAA Negative (Negative)
== END ==
PROVIDERS: Visit Provider Nurse Practitioner Obstetrics & Gynecology
DX: Z20.2 Contact with and (suspected) exposure to infections with a predominantly sexual mode of transmission (principal); Z72.51 High risk heterosexual behavior
CPT/HCPCS: 87491; 87591

== ENCOUNTER → 2021-02-06 17:04 | Outpatient (CLI) | payer MEDICARE, MEDICAID, SELFPAY ==
--- NOTE | 2021-02-06 17:22 | XR_ITS ---
PROCEDURE: XR HAND LT MIN 3V CLINICAL INDICATION: ACUTE PAIN DUE TO TRAUMA COMPARISON: No exams were available for comparison FINDINGS: No fracture or dislocation. No lytic or blastic change. There is normal mineralization. The joint spaces are well-preserved. No significant degenerative/arthritic changes. No erosive changes evident. Other findings:None. IMPRESSION: No acute findings. Dictated by: Nathan Hoffman MD 02/06/2021 17:35 Nathan Hoffman MD in [facility] 02/06/2021 17:35
[2021-02-06 18:18] LABS: Basophils # 0.1 K/mm3 (0-0.2); Eosinophils # 1.2 K/mm3 (0.0-0.4); Eosinophils % 12.7 % (0.1-12.0); Hematocrit 40.4 % (37.0-47.0); Hemoglobin 13.2 g/dL (12.2-16.2); Lymphocytes # 2.1 K/mm3 (0.7-4.5); Lymphocytes % 22.6 % (10-50); Mean Corpuscular HGB Conc 32.6 g/dL (31.8-35.4); Mean Corpuscular Hemoglobin 30.4 pg (27.0-31.2); Mean Corpuscular Volume 93.2 fl (81-99); Mean Platelet Volume 7.9 fl (7.4-10.4); Monocytes # 0.4 K/mm3 (0.1-1.0); Monocytes % 4.5 % (1.7-9.3); Neutrophils # 5.5 K/mm3 (1.8-7.8); Neutrophils % 59.2 % (37.0-80.0); Platelet Count 226 K/mm3 (142-424); Red Blood Count 4.33 M/mm3 (4.20-5.40); Red Cell Distribution Width 15.8 % (11.5-17.5); White Blood Count 9.2 K/mm3 (4.8-10.8)
[2021-02-06 18:20] LABS: Alanine Aminotransferase 49 U/L (12-78); Albumin Level 4.6 g/dl (3.5-5.0); Albumin/Globulin Ratio 1.4 (1.1-1.8); Alkaline Phosphatase 252 U/L (38-126); Anion Gap 15.6 mEq/L (5-15); Aspartate Amino Transferase 83 U/L (14-36); Bilirubin,Total 0.4 mg/dl (0.2-1.3); Blood Urea Nitrogen 19 mg/dl (7-17); Calcium 9.8 mg/dl (8.4-10.2); Carbon Dioxide 26 mmol/L (22.0-30.0); Chloride 104 mmol/L (98-107); Estimated Glomerular Filt Rate 65 ml/min (>60); GFR (African American) 78 ML/MIN (>60); Globulin 3.3 g/dL (1.3-3.2); Glucose 189 mg/dl (74-100); Potassium 4.6 mmoL/L (3.5-5.1); Sodium 141 mmol/L (136-145); Total Protein,Serum 7.9 g/dl (6.3-8.2)
[2021-02-06 18:21] LABS: Hemoglobin A1C 5.8 % (4.0-6.0)
[2021-02-06 18:51] LABS: Thyroid Stimulating Hormone 0.02 uIU/mL (0.465-4.68)
== END ==
PROVIDERS: Visit Provider Nurse Practitioner Family
DX: E03.9 Hypothyroidism, unspecified (principal); E11.8 Type 2 diabetes mellitus with unspecified complications; M18.31 Unilateral post-traumatic osteoarthritis of first carpometacarpal joint, right hand; M79.642 Pain in left hand; G89.11 Acute pain due to trauma
CPT/HCPCS: 36415; 73130; 80053; 83036; 84443; 85025

== ENCOUNTER 2021-03-16 08:11 | Emergency (ER) | payer MEDICARE, MEDICAID, SELFPAY ==
[2021-03-16 08:12] VITALS: BP 154/74; PULSE 74; RESP 14; TEMP 36.8; O2SAT 94; BMI 25.4
--- NOTE | 2021-03-16 08:24 | HMH.EDGENADL ---
ED Disposition Clinical Impression: Left ureteral calculus Disposition: Home, Self-Care Condition on Discharge: Fair Instructions: DI for Kidney Stones Additional Instructions: Percocet as needed for pain. Zofran as needed for nausea. Flomax as prescribed. Additional instructions for KIDNEY STONE (URETERAL CALCULUS): See Dr. Roman as soon as possible for further evaluation. Drink plenty of fluids. Strain your urine and save any stones you catch. Return immediately if you develop a fever or have uncontrollable vomiting or uncontrollable pain. Additional instructions for CONTROLLED SUBSTANCES: You have been prescribed a medication that is a controlled substance. Controlled substances include pain medications known as opiates and sedative nerve medications known as benzodiazepines. Tramadol, fioricet, and gabapentin are also controlled substances. Some common opiates include: Codeine (such as Tylenol #3) Hydrocodone (Vicodin, Lortab, Lorcet, Herald) Oxycodone (Percocet, Percodan, Oxycodone, Oxy IR) Some common benzodiazepines include: Diazepam (Valium) Lorazepam (Ativan) Alprazolam (Xanax) Clonazepam (Klonopin) Oxazepam (Serax) All of these controlled substances are highly addictive and frequently abused. Misuse can and frequently does lead to addiction as well as overdose and . Medication should be stored in a locked cabinet or other secure storage unit. Do not store the medication in a motor vehicle. Short term supplies, 3 days or less, are prescribed because of the highly addictive nature of the medication. Any of the controlled substance medication NOT taken should be disposed of properly and NOT SAVED. The recommended method of disposing of unused medications is: Place the medicines in a sealable plastic bag. If the medicine is a solid, crush it or add water to dissolve it. Add something undesirable (cat litter, coffee grounds, etc.) Dispose of sealed bag in household trash Do not flush or pour unused medicines down a sink or drain. Controlled substances should not be shared, given away or sold. Because of the addictive nature and frequent abuse, these medications are sometimes stolen. These medications should be kept in a safe place where they cannot be stolen. Do not keep them in your car or purse. Lost or stolen prescriptions for controlled substances WILL NOT BE REFILLED in this emergency department, regardless of whether a police report was filed. Prescriptions: Oxycodone HCl/Acetaminophen [Percocet 5/325mg tablet] 1 tab PO Q6HP PRN #10 tablet PRN Reason: Moderate To Severe Pain Transmission Status: [facility] to [facility] Tamsulosin HCl [Flomax 0.4mg capsule] 0.4 mg PO HS #10 cap Transmission Status: Pending to [facility] Ondansetron [Zofran 4mg ODT] 4 mg PO TIDP PRN #10 tab PRN Reason: Nausea And Vomiting Transmission Status: Pending to [facility] Referrals: Toshia Kline APRN [Primary Care Provider] - - Critical Care Critical Care Time: No Attestation: On , the high probability of a clinically significant, sudden or life threatening deterioration of the following system(s) required my full and direct attention, intervention and personal management. The time I documented below is in addition to time spent performing reported procedures but includes the following listed in this critical care notation. Medical Decision Making - Rob Inquiry Pt receiving controlled substance: Yes Rob was queried for this patient: Yes Risks and benefits of using a controlled substance: were discussed with pt by me Vital Signs: 03/16/21 08:12 Temperature 98.2 F Temperature Source Oral Pulse Rate [Right Radial] 74 Respiratory Rate 14 Blood Pressure [Right Arm] 154/74 H Blood Pressure Mean [Right Arm] 100 Blood Pressure Source [Right Arm] Automatic Cuff Blood Pressure Position [Right Arm] Sitting 02 Sat by Pulse Oximetry 94 L
--- NOTE | 2021-03-16 08:42 | CT_ITS ---
PROCEDURE: CT ABDOMEN PELVIS WO CON CLINICAL INDICATION: flank pain Left flank pain COMPARISON: CT CT ABDOMEN PELVIS W CON from 10/28/2020 TECHNIQUE: Axial images obtained with sagittal and coronal reformats. All CT scans at the facility use one or more dose reduction, viz: automated exposure control, ma/kV adjustment per patient size (including targeted exams where dose is matched to indication, i.e. head), or iterative reconstruction technique. FINDINGS: LOWER THORAX: Stable 6 mm right lower lobe nodule. Coronary artery and aortic valve calcifications. ABDOMEN & PELVIS: Diffuse fatty liver with hepatomegaly. Maximum transverse dimension of the liver is 27 cm. Spleen is enlarged at 17 cm. No focal splenic lesion apparent. There is diffuse enlargement of the stomach filled with undigested material. The adrenal glands and pancreas have an unremarkable unenhanced appearance. There are numerous left renal calculi mainly in the upper pole of the left kidney with the cluster of stones measuring 16 mm. Developing staghorn calculus in the upper pole is a consideration. There is a 5 x 3 mm stone at the left ureterovesical junction causing mild left-sided hydro nephrosis and ureteral dilatation. There is a diverting colostomy in the right upper quadrant. Prior left hemicolectomy. No evidence of appendicitis. No intestinal obstruction or free air. There is thickening of the umbilicus nonspecific and could be due to postsurgical changes. There is also focal subcutaneous soft tissue thickening in the upper abdomen medially on the left possibly due to a prior healed stoma. Atherosclerotic changes noted of the aortoiliac vessels with minimal ectasia of the lower abdominal aorta. There is mild lumbar scoliosis convex left. IMPRESSION: 1. 5 mm left ureterovesical junction stone with mild obstructive uropathy. 2. Numerous left renal calculi mainly in the upper pole with possibility of developing staghorn calculus at this region. 3. Right upper quadrant colostomy with prior left hemicolectomy. 4. Dilated stomach filled with food debris. 5. Hepatosplenomegaly with fatty liver Dictated by: Nathan Hoffman MD 03/16/2021 09:33 Nathan Hoffman MD in [place] 03/16/2021 09:33
[2021-03-16 08:54] LABS: Basophils # 0.2 K/mm3 (0-0.2); Basophils % 1.4 % (0.1-2.0); Eosinophils # 0.9 K/mm3 (0.0-0.4); Eosinophils % 6.6 % (0.1-12.0); Hematocrit 40.4 % (37.0-47.0); Hemoglobin 13.8 g/dL (12.2-16.2); Lymphocytes # 2.8 K/mm3 (0.7-4.5); Lymphocytes % 20.5 % (10-50); Mean Corpuscular HGB Conc 34.2 g/dL (31.8-35.4); Mean Corpuscular Volume 93.6 fl (81-99); Mean Platelet Volume 8.2 fl (7.4-10.4); Monocytes # 0.7 K/mm3 (0.1-1.0); Monocytes % 4.9 % (1.7-9.3); Neutrophils # 9.1 K/mm3 (1.8-7.8); Neutrophils % 66.5 % (37.0-80.0); Platelet Count 205 K/mm3 (142-424); Red Blood Count 4.31 M/mm3 (4.20-5.40); Red Cell Distribution Width 14.8 % (11.5-17.5); White Blood Count 13.7 K/mm3 (4.8-10.8)
[2021-03-16 08:59] LABS: Chloride 106 mmol/L (98-107); Potassium 3.8 mmoL/L (3.5-5.1); Sodium 142 mmol/L (136-145)
[2021-03-16 09:01] LABS: Blood Urea Nitrogen 13 mg/dl (7-17); Creatinine Clearance Estimated 64 mL/min (50-200); Estimated Glomerular Filt Rate 65 ml/min (>60); GFR (African American) 78 ML/MIN (>60)
[2021-03-16 09:02] LABS: Alanine Aminotransferase 41 U/L (12-78); Albumin Level 4.4 g/dl (3.5-5.0); Albumin/Globulin Ratio 1.3 (1.1-1.8); Alkaline Phosphatase 223 U/L (38-126); Anion Gap 14.8 mEq/L (5-15); Aspartate Amino Transferase 75 U/L (14-36); Bilirubin,Total 0.2 mg/dl (0.2-1.3); Carbon Dioxide 25 mmol/L (22.0-30.0); Globulin 3.5 g/dL (1.3-3.2); Glucose 149 mg/dl (74-100); Total Protein,Serum 7.9 g/dl (6.3-8.2)
[2021-03-16 09:21] LABS: Microscopic, Urine URINE MICROSCOPIC (MICROSCOPIC)
[2021-03-16 09:25] LABS: Appearance,Urine CLOUDY (Clear); Blood, Urine 3+ (Negative); Color,Urine ORANGE (Yellow); Glucose,Urine (UA) 3+ (Negative); Ketones,Urine Negative (Negative); Leukocyte Esterase,Urine TRACE (Negative); Nitrate,Urine POSITIVE (Negative); PH,Urine 5.5 (5.0-8.5); Protein,Urine 3+ (Negative); Specific Gravity, Urine >= 1.030 (1.005-1.030)
[2021-03-16 09:45] LABS: Bilirubin,Urine 2+ (Negative)
[2021-03-16 09:46] LABS: Bacteria,Urine Trace /lpf; RBC,Urine 20-50 #/hpf (0-3)
[2021-03-16 10:49] VITALS: BP 129/71; PULSE 91; RESP 18; TEMP 36.8; O2SAT 94
== END 2021-03-16 11:22 | disposition home or self-care (01) ==
PROVIDERS: Emergency Provider Emergency Medicine; PCP Nurse Practitioner Family
DX: N20.1 Calculus of ureter (principal); I25.10 Atherosclerotic heart disease of native coronary artery without angina pectoris; E11.9 Type 2 diabetes mellitus without complications; E78.5 Hyperlipidemia, unspecified; I10 Essential (primary) hypertension
CPT/HCPCS: 74176; 80053; 81001; 85025; 96374; 96375; 99283; J2405

== ENCOUNTER 2021-04-07 14:17 | Emergency (ER) | payer MEDICARE, MEDICAID, SELFPAY ==
[2021-04-07 14:27] VITALS: BP 122/58; PULSE 81; RESP 18; TEMP 37.3; O2SAT 95; BMI 24.6
--- NOTE | 2021-04-07 15:24 | CT_ITS ---
PROCEDURE INFORMATION: Exam: CT Abdomen And Pelvis Without Contrast Exam date and time: 04/07/2021 3:24 PM Age: 56 years old Clinical indication: Abdominal pain; Generalized; Prior surgery; Surgery date: 3-7 days post-operative; Surgery type: Ureteral stent placement; Patient HX: Left flank pain, recent stent placement left ureter, fever; Additional info: Recent L ureteral stent placement, fever TECHNIQUE: Imaging protocol: Computed tomography of the abdomen and pelvis without contrast. Radiation optimization: All CT scans at this facility use at least one of these dose optimization techniques: automated exposure control; mA and/or kV adjustment per patient size (includes targeted exams where dose is matched to clinical indication); or iterative reconstruction. COMPARISON: CT ABDOMEN PELVIS WO CON 03/16/2021 8:52 AM FINDINGS: Lungs: Minor atelectasis at the left lung base. Liver: Hepatomegaly. No mass. Gallbladder and bile ducts: Normal. No calcified stones. No ductal dilation. Pancreas: Normal. No ductal dilation. Spleen: Multiple calcified splenic granulomata. Splenomegaly. Adrenal glands: Normal. No mass. Kidneys and ureters: Two separate ureteral stents within a duplicated system. Multiple left-sided renal stones measuring up to 1.2 cm. Mildly dilated left-sided renal pelvis and calices. The lower ureter is mildly dilated proximally. 5 mm stone seen adjacent to the more medial proximally. Stomach and bowel: Unremarkable. No obstruction. No mucosal thickening. Appendix: No evidence of appendicitis. Intraperitoneal space: Unremarkable. No free air. No significant fluid collection. Vasculature: Moderate atherosclerotic changes are seen within the abdominal aorta and branch vasculature without evidence of aneurysm. Lymph nodes: Unremarkable. No enlarged lymph nodes. Urinary bladder: Unremarkable as visualized. Reproductive: Unremarkable as visualized. Bones/joints: Unremarkable. No acute fracture. Soft tissues: Right upper quadrant ostomy. Stimulator lead extends to the left presacral region. IMPRESSION: 1. Two separate ureteral stents within a duplicated left ureteral system. 2. 5 mm stone adjacent to the proximal ureteral stent originating from the upper kidney. 3. Left-sided renal stones. 4. Hepatosplenomegaly.
[2021-04-07 16:13] LABS: Microscopic, Urine URINE MICROSCOPIC (MICROSCOPIC)
[2021-04-07 16:13] LABS: Basophils # 0.1 K/mm3 (0-0.2); Basophils % 0.7 % (0.1-2.0); Eosinophils # 0.8 K/mm3 (0.0-0.4); Eosinophils % 5.4 % (0.1-12.0); Hematocrit 38.6 % (37.0-47.0); Hemoglobin 12.4 g/dL (12.2-16.2); Lymphocytes # 1.7 K/mm3 (0.7-4.5); Lymphocytes % 12.4 % (10-50); Mean Corpuscular HGB Conc 32.2 g/dL (31.8-35.4); Mean Corpuscular Hemoglobin 31.2 pg (27.0-31.2); Monocytes # 1.1 K/mm3 (0.1-1.0); Monocytes % 7.9 % (1.7-9.3); Neutrophils # 10.3 K/mm3 (1.8-7.8); Neutrophils % 73.7 % (37.0-80.0); Platelet Count 226 K/mm3 (142-424); Red Blood Count 3.98 M/mm3 (4.20-5.40); Red Cell Distribution Width 14.5 % (11.5-17.5); White Blood Count 13.9 K/mm3 (4.8-10.8)
[2021-04-07 16:16] LABS: Chloride 98 mmol/L (98-107); Potassium 3.5 mmoL/L (3.5-5.1); Sodium 133 mmol/L (136-145)
[2021-04-07 16:18] LABS: Appearance,Urine TURBID (Clear); Blood, Urine 2+ (Negative); Color,Urine ORANGE (Yellow); Glucose,Urine (UA) 2+ (Negative); Ketones,Urine TRACE (Negative); Leukocyte Esterase,Urine 2+ (Negative); Nitrate,Urine POSITIVE (Negative); Protein,Urine 3+ (Negative); Specific Gravity, Urine 1.025 (1.005-1.030); Urobilinogen,Urine >=8.0 EU/dl (0.2)
[2021-04-07 16:19] LABS: Alanine Aminotransferase 26 U/L (12-78); Albumin Level 3.7 g/dl (3.5-5.0); Alkaline Phosphatase 252 U/L (38-126); Anion Gap 16.5 mEq/L (5-15); Aspartate Amino Transferase 47 U/L (14-36); Bilirubin,Total 0.7 mg/dl (0.2-1.3); Blood Urea Nitrogen 18 mg/dl (7-17); Calcium 9.2 mg/dl (8.4-10.2); Carbon Dioxide 22 mmol/L (22.0-30.0); Creatinine Clearance Estimated 35 mL/min (50-200); Estimated Glomerular Filt Rate 33 ml/min (>60); GFR (African American) 40 ML/MIN (>60); Globulin 3.7 g/dL (1.3-3.2); Glucose 214 mg/dl (74-100); Total Protein,Serum 7.4 g/dl (6.3-8.2)
[2021-04-07 16:20] LABS: Lactic Acid 2.4 mmol/L (0.7-2.1)
[2021-04-07 16:35] LABS: Bilirubin,Urine 2+ (Negative)
[2021-04-07 16:37] LABS: RBC,Urine TNTC #/hpf (0-3); WBC,Urine TNTC #/hpf (0-3)
[2021-04-07 16:38] LABS: Bacteria,Urine 3+ /lpf
[2021-04-07 16:44] VITALS: BP 129/62; PULSE 78; RESP 18; O2SAT 95
[2021-04-07 16:45] VITALS: BP 129/62; PULSE 78; RESP 20; O2SAT 92
--- NOTE | 2021-04-07 16:50 | PC.NURSE ---
per radiology staff pt labs area not okay to have contrast, notified ER , states to do scan without contrast.
[2021-04-07 20:05] LABS: Reflex Lactic Add Lactic Reflex
[2021-04-07 20:20] VITALS: BP 125/75; PULSE 72; RESP 18; TEMP 36.8; O2SAT 98
--- NOTE | 2021-04-07 22:52 | HMH.EDGENADL ---
ED Disposition Clinical Impression: Complicated urinary tract infection, Nephrolithiasis Fever Qualifiers: Fever type: due to other condition Qualified Code(s): R50.81 - Fever presenting with conditions classified elsewhere Disposition: Left Against Medical Advice Condition on Discharge: Fair Referrals: Toshia Kline APRN [Primary Care Provider] - - Critical Care Critical Care Time: Yes (Extensive counseling, IV antibiotics, multiple reassessments) Attestation: On 04/07/21, the high probability of a clinically significant, sudden or life threatening deterioration of the following system(s) required my full and direct attention, intervention and personal management. The time I documented below is in addition to time spent performing reported procedures but includes the following listed in this critical care notation. Total Critical Care Time: 30 Vital system(s) involved:: Renal Failure My critical care processes included: Assessment & monitoring of V/S, Initial and Re-exams, Data Review/Interpretation, Coordinating Care, Medication Orders and management, Documentation Medical Decision Making - Medical Records Medical records reviewed: Yes: I reviewed the patient's medical records. - Rob Inquiry Pt receiving controlled substance: No Vital Signs: 04/07/21 14:27 04/07/21 16:44 04/07/21 16:45 Temperature 99.1 F Temperature Source Oral Pulse Rate 78 78 Pulse Rate [Right Radial] 81 Respiratory Rate 18 18 20 Blood Pressure 129/62 129/62 Blood Pressure [Right Arm] 122/58 L Blood Pressure Mean 95 Blood Pressure Mean [Right Arm] 79 Blood Pressure Source Blood Pressure Source [Right Arm] Automatic Cuff Blood Pressure Position Blood Pressure Position [Right Arm] Sitting 02 Sat by Pulse Oximetry 95 95 92 L Oxygen Delivery Method Room Air 04/07/21 20:20 Temperature 98.2 F Temperature Source Oral Pulse Rate 72 Pulse Rate [Right Radial] Respiratory Rate 18 Blood Pressure 125/75 Blood Pressure [Right Arm] Blood Pressure Mean Blood Pressure Mean [Right Arm] Blood Pressure Source Automatic Cuff Blood Pressure Source [Right Arm] Blood Pressure Position Sitting Blood Pressure Position [Right Arm] 02 Sat by Pulse Oximetry Oxygen Delivery Method Room Air - Lab Data Lab results reviewed: Yes: I reviewed the patient's lab results. Lab Results 04/07/21 14:37: Urine Color [place], Urine Appearance Turbid, Urine pH 5.0, Ur Specific [place] 1.025, Urine Protein 3+, Urine Glucose (UA) 2+, Urine Ketones Trace, Urine Blood 2+, Urine Nitrate Positive, Urine Bilirubin 2+ A, Urine Urobilinogen >=8.0, Ur Leukocyte Esterase 2+ A, Urine RBC Tntc, Urine WBC Tntc, Ur Squamous Epith Cells None, Urine Bacteria 3+ 04/07/21 15:52: WBC 13.9 H, RBC 3.98 L, Hgb 12.4, Hct 38.6, MCV 97.0, MCH 31.2, MCHC 32.2, RDW 14.5, Plt Count 226, MPV 8.0, Neut % (Auto) 73.7, Lymph % (Auto) 12.4, [place] % (Auto) 7.9, Eos % (Auto) 5.4, Baso % (Auto) 0.7, Neut # (Auto) 10.3 H, Lymph # (Auto) 1.7, [place] # (Auto) 1.1 H, Eos # (Auto) 0.8 H, Baso # (Auto) 0.1 04/07/21 15:52: Sodium 133 L, Potassium 3.5, Chloride 98, Carbon Dioxide 22, Anion Gap 16.5 H, BUN 18 H, Creatinine 1.60 H, Estimated Creat Clear 35, Estimated GFR 33 L, Est GFR ( Amer) 40 L, Glucose 214 H, Calcium 9.2, Total Bilirubin 0.7, AST 47 H, ALT 26, Alkaline Phosphatase 252 H, Total Protein 7.4, Albumin 3.7, Globulin 3.7 H, Albumin/Globulin Ratio 1.0 L 04/07/21 15:52: Lactate 2.4 H Result diagrams: 04/07/21 15:52 04/07/21 15:52 Orders (Tests/Meds): ED MEDICATIONS Discontinued Medications Generic Name Dose Route Start Last Admin Trade Name Freq PRN Reason Stop Dose Admin Piperacillin Sod/Tazobactam 50 mls @ 100 mls/hr 04/07/21 17:45 04/07/21 18:04 Sod 3.375 gm/ Sodium Chloride IV 04/21/21 17:44 100 mls/hr Q6H KATERIN Administration Lactated Ringer's 1,000 mls @ 999 mls/hr 04/07/21 17:45 04/07/21 19:13 Lactated Ringer's 1000 M
== END 2021-04-07 20:23 | disposition left against medical advice (07) ==
PROVIDERS: Emergency Provider Emergency Medicine; PCP Nurse Practitioner Family
DX: N30.00 Acute cystitis without hematuria (principal); N20.0 Calculus of kidney; I25.10 Atherosclerotic heart disease of native coronary artery without angina pectoris; F41.8 Other specified anxiety disorders; E03.9 Hypothyroidism, unspecified
CPT/HCPCS: 74176; 80053; 81001; 83605; 85025; 87040; 87086; 96365; 96367; 96375; 99284; J2405; J2543

== ENCOUNTER → 2021-04-18 14:20 | Outpatient (CLI) | payer MEDICARE, MEDICAID, SELFPAY ==
[2021-04-18 14:42] LABS: Basophils # 0.2 K/mm3 (0-0.2); Basophils % 1.4 % (0.1-2.0); Eosinophils # 0.6 K/mm3 (0.0-0.4); Eosinophils % 4.3 % (0.1-12.0); Hematocrit 29.7 % (37.0-47.0); Hemoglobin 9.5 g/dL (12.2-16.2); Lymphocytes # 2.9 K/mm3 (0.7-4.5); Lymphocytes % 22.7 % (10-50); Mean Corpuscular HGB Conc 32.1 g/dL (31.8-35.4); Mean Corpuscular Hemoglobin 30.5 pg (27.0-31.2); Mean Corpuscular Volume 94.9 fl (81-99); Mean Platelet Volume 8.8 fl (7.4-10.4); Monocytes # 0.5 K/mm3 (0.1-1.0); Monocytes % 4.1 % (1.7-9.3); Neutrophils # 8.7 K/mm3 (1.8-7.8); Neutrophils % 67.5 % (37.0-80.0); Platelet Count 408 K/mm3 (142-424); Red Blood Count 3.13 M/mm3 (4.20-5.40); Red Cell Distribution Width 14.5 % (11.5-17.5); White Blood Count 12.9 K/mm3 (4.8-10.8)
[2021-04-18 14:59] LABS: Chloride 102 mmol/L (98-107); Sodium 138 mmol/L (136-145)
[2021-04-18 15:00] LABS: Potassium 3.7 mmoL/L (3.5-5.1)
[2021-04-18 15:02] LABS: Alanine Aminotransferase 38 U/L (12-78); Alkaline Phosphatase 440 U/L (38-126); Anion Gap 12.7 mEq/L (5-15); Aspartate Amino Transferase 111 U/L (14-36); Bilirubin,Total 0.3 mg/dl (0.2-1.3); Blood Urea Nitrogen 9 mg/dl (7-17); Carbon Dioxide 27 mmol/L (22.0-30.0); Estimated Glomerular Filt Rate 74 ml/min (>60); GFR (African American) 89 ML/MIN (>60)
[2021-04-18 15:03] LABS: Albumin Level 3.1 g/dl (3.5-5.0); Albumin/Globulin Ratio 0.7 (1.1-1.8); Globulin 4.6 g/dL (1.3-3.2); Glucose 116 mg/dl (74-100); Total Protein,Serum 7.7 g/dl (6.3-8.2)
[2021-04-18 15:08] LABS: C-Reactive Protein 66.8 mg/L (0-4)
== END ==
PROVIDERS: Visit Provider Nurse Practitioner Family
DX: K65.1 Peritoneal abscess (principal); L30.9 Dermatitis, unspecified; T81.43XA Infection following a procedure, organ and space surgical site, initial encounter
CPT/HCPCS: 80053; 85025; 86140

== ENCOUNTER → 2021-05-01 16:51 | Outpatient (CLI) | payer MEDICARE, MEDICAID, SELFPAY ==
[2021-05-01 17:12] LABS: Basophils # 0.2 K/mm3 (0-0.2); Eosinophils # 0.4 K/mm3 (0.0-0.4); Eosinophils % 5.3 % (0.1-12.0); Hematocrit 34.1 % (37.0-47.0); Hemoglobin 11.2 g/dL (12.2-16.2); Lymphocytes # 3.1 K/mm3 (0.7-4.5); Lymphocytes % 38.5 % (10-50); Mean Corpuscular HGB Conc 32.8 g/dL (31.8-35.4); Mean Corpuscular Hemoglobin 30.8 pg (27.0-31.2); Mean Corpuscular Volume 93.9 fl (81-99); Monocytes # 0.4 K/mm3 (0.1-1.0); Monocytes % 4.8 % (1.7-9.3); Neutrophils % 49.5 % (37.0-80.0); Platelet Count 259 K/mm3 (142-424); Red Blood Count 3.64 M/mm3 (4.20-5.40); Red Cell Distribution Width 16.3 % (11.5-17.5)
[2021-05-01 17:49] LABS: Alanine Aminotransferase 31 U/L (12-78); Albumin Level 4.1 g/dl (3.5-5.0); Albumin/Globulin Ratio 1.1 (1.1-1.8); Alkaline Phosphatase 263 U/L (38-126); Anion Gap 11.6 mEq/L (5-15); Aspartate Amino Transferase 67 U/L (14-36); Bilirubin,Total 0.3 mg/dl (0.2-1.3); Blood Urea Nitrogen 10 mg/dl (7-17); Calcium 9.9 mg/dl (8.4-10.2); Carbon Dioxide 29 mmol/L (22.0-30.0); Chloride 103 mmol/L (98-107); Estimated Glomerular Filt Rate 86 ml/min (>60); GFR (African American) 104 ML/MIN (>60); Globulin 3.6 g/dL (1.3-3.2); Glucose 103 mg/dl (74-100); Potassium 5.6 mmoL/L (3.5-5.1); Sodium 138 mmol/L (136-145); Total Protein,Serum 7.7 g/dl (6.3-8.2)
[2021-05-01 17:54] LABS: C-Reactive Protein 7.9 mg/L (0-4)
== END ==
PROVIDERS: Visit Provider Internal Medicine Infectious Disease
DX: K65.1 Peritoneal abscess (principal); T81.43XA Infection following a procedure, organ and space surgical site, initial encounter; L30.9 Dermatitis, unspecified
CPT/HCPCS: 80053; 85025; 86140

== ENCOUNTER → 2021-05-10 15:50 | Outpatient (CLI) | payer MEDICARE, MEDICAID, SELFPAY ==
[2021-05-10 16:17] LABS: Basophils # 0.1 K/mm3 (0-0.2); Eosinophils # 0.6 K/mm3 (0.0-0.4); Eosinophils % 8.7 % (0.1-12.0); Hematocrit 37.8 % (37.0-47.0); Hemoglobin 12.9 g/dL (12.2-16.2); Lymphocytes # 2.1 K/mm3 (0.7-4.5); Lymphocytes % 28.6 % (10-50); Mean Corpuscular HGB Conc 34.2 g/dL (31.8-35.4); Mean Corpuscular Hemoglobin 32.4 pg (27.0-31.2); Mean Corpuscular Volume 94.5 fl (81-99); Mean Platelet Volume 7.5 fl (7.4-10.4); Monocytes # 0.3 K/mm3 (0.1-1.0); Monocytes % 4.3 % (1.7-9.3); Neutrophils # 4.2 K/mm3 (1.8-7.8); Neutrophils % 57.3 % (37.0-80.0); Platelet Count 252 K/mm3 (142-424); Red Cell Distribution Width 16.1 % (11.5-17.5); White Blood Count 7.3 K/mm3 (4.8-10.8)
[2021-05-10 16:43] LABS: Chloride 110 mmol/L (98-107); Potassium 4.5 mmoL/L (3.5-5.1); Sodium 141 mmol/L (136-145)
[2021-05-10 16:45] LABS: Blood Urea Nitrogen 20 mg/dl (7-17); Estimated Glomerular Filt Rate 65 ml/min (>60); GFR (African American) 78 ML/MIN (>60)
[2021-05-10 16:46] LABS: Alanine Aminotransferase 50 U/L (12-78); Albumin Level 4.5 g/dl (3.5-5.0); Albumin/Globulin Ratio 1.3 (1.1-1.8); Alkaline Phosphatase 285 U/L (38-126); Anion Gap 13.5 mEq/L (5-15); Aspartate Amino Transferase 103 U/L (14-36); Bilirubin,Total 0.3 mg/dl (0.2-1.3); Carbon Dioxide 22 mmol/L (22.0-30.0); Chol/HDL Ratio 5.2 (1-3.5); Cholesterol 193 mg/dl (140-200); Globulin 3.6 g/dL (1.3-3.2); Glucose 135 mg/dl (74-100); HDL Cholesterol 37 mg/dl (40-60); Total Protein,Serum 8.1 g/dl (6.3-8.2); Triglycerides 317 mg/dl (30-150); VLDL Cholesterol 63 mg/dL (0-40)
[2021-05-10 16:55] LABS: Hemoglobin A1C 5.4 % (4.0-6.0)
[2021-05-10 16:58] LABS: Direct LDL Cholesterol 97.35 mg/dL (100-129)
[2021-05-10 17:17] LABS: Thyroid Stimulating Hormone 0.92 uIU/mL (0.465-4.68)
== END ==
PROVIDERS: Visit Provider Nurse Practitioner Family
DX: E78.5 Hyperlipidemia, unspecified (principal); E11.8 Type 2 diabetes mellitus with unspecified complications; N18.31 Chronic kidney disease, stage 3a; Z79.84 Long term (current) use of oral hypoglycemic drugs
CPT/HCPCS: 36415; 80053; 80061; 83036; 84443; 85025

== ENCOUNTER → 2021-06-08 13:55 | Outpatient (CLI) | payer MEDICARE, MEDICAID, SELFPAY ==
--- NOTE | 2021-06-08 13:59 | US_ITS ---
PROCEDURE: US CHEST CLINICAL INDICATION: SOFT TISSUE MASS LT CHEST WALL COMPARISON: CT ABDPELW/O CT ABD PELVIS W/O CONTRAST from 08/22/[address] ABDOMEN PELVIS WO CON from 03/16/[address] ABDOMEN PELVIS WO CON from 04/07/2021 FINDINGS: Ultrasound performed of the left lateral chest wall at areas of palpable concern. At this region there are 3 areas of increased echogenicity with posterior acoustical shadowing. The largest area measures approximately 5 mm in width. Review of most recent CT scan of 04/07/2021 shows several calcific densities along the lateral aspect of the lower thoracic wall in the subcutaneous fat which may correspond to the sonographic findings. No fluid collections are evident. No other significant anomalies are apparent. IMPRESSION: At least 3 areas of increased echogenicity with posterior acoustical shadowing along the lateral chest wall and on the left which may correspond to areas of calcification on the most recent CT scan. This could represent areas of fat necrosis, dystrophic calcification from prior trauma or infection, or even foreign bodies such as gravel. Please correlate with clinical parameters. Dictated by: Nathan Hoffman MD 06/09/2021 10:17 Nathan Hoffman MD in [place] 06/09/2021 10:17
== END ==
PROVIDERS: PCP Nurse Practitioner Family; Visit Provider Nurse Practitioner Family
DX: M79.89 Other specified soft tissue disorders (principal)
CPT/HCPCS: 76604

== ENCOUNTER → 2021-08-26 11:14 | Outpatient (CLI) | payer MEDICARE, MEDICAID, SELFPAY ==
--- NOTE | 2021-08-26 11:21 | XR_ITS ---
PROCEDURE INFORMATION: Exam: XR Chest Exam date and time: 08/26/2021 11:21 AM Age: 56 years old Clinical indication: Cough and shortness of breath; Additional info: Copd, cough TECHNIQUE: Imaging protocol: XR of the chest. Views: 2 views. COMPARISON: DX XR CHEST 2V 07/23/2019 12:20 PM FINDINGS: Lungs: No regions of consolidation. No evidence of acute cardiopulmonary disease. Pleural spaces: No evidence of pleural effusion. Heart/Mediastinum: Densely calcified right paratracheal lymph nodes again demonstrated. Calcified granuloma again demonstrated in the right upper lobe. Findings stable. Vasculature: Atherosclerotic calcification again demonstrated within the aortic arch. Bones/joints: Unremarkable. IMPRESSION: 1. Evidence of previous granulomatous disease. Findings stable. 2. No evidence of acute cardiopulmonary disease.
== END ==
PROVIDERS: PCP Internal Medicine Adolescent Medicine; Visit Provider Nurse Practitioner Family
DX: R05.9 Cough, unspecified (principal); J44.1 Chronic obstructive pulmonary disease with (acute) exacerbation
CPT/HCPCS: 71046

== ENCOUNTER → 2021-09-21 16:35 | Outpatient (CLI) | payer MEDICARE, MEDICAID, SELFPAY ==
[2021-09-21 17:29] LABS: Basophils # 0.2 K/mm3 (0-0.2); Eosinophils # 0.3 K/mm3 (0.0-0.4); Eosinophils % 4.2 % (0.1-12.0); Hemoglobin 13.5 g/dL (12.2-16.2); Lymphocytes # 2.1 K/mm3 (0.7-4.5); Lymphocytes % 28.3 % (10-50); Mean Corpuscular HGB Conc 32.9 g/dL (31.8-35.4); Mean Corpuscular Hemoglobin 31.5 pg (27.0-31.2); Mean Corpuscular Volume 95.7 fl (81-99); Mean Platelet Volume 8.4 fl (7.4-10.4); Monocytes # 0.4 K/mm3 (0.1-1.0); Monocytes % 5.6 % (1.7-9.3); Neutrophils # 4.5 K/mm3 (1.8-7.8); Platelet Count 159 K/mm3 (142-424); Red Blood Count 4.28 M/mm3 (4.20-5.40); Red Cell Distribution Width 14.3 % (11.5-17.5); White Blood Count 7.4 K/mm3 (4.8-10.8)
[2021-09-21 17:40] LABS: Creatinine,Urine Random 44 mg/dL (Not Estab.)
[2021-09-21 17:43] LABS: Microalbumin/Creatinine Ratio 75.4
[2021-09-21 17:45] LABS: Chloride 105 mmol/L (98-107); Sodium 137 mmol/L (136-145)
[2021-09-21 17:46] LABS: Potassium 4.4 mmoL/L (3.5-5.1)
[2021-09-21 17:48] LABS: Alanine Aminotransferase 53 U/L (12-78); Albumin Level 4.2 g/dl (3.5-5.0); Albumin/Globulin Ratio 1.4 (1.1-1.8); Alkaline Phosphatase 225 U/L (38-126); Anion Gap 11.4 mEq/L (5-15); Aspartate Amino Transferase 69 U/L (14-36); Bilirubin,Total 0.4 mg/dl (0.2-1.3); Blood Urea Nitrogen 14 mg/dl (7-17); Carbon Dioxide 25 mmol/L (22.0-30.0); Cholesterol 135 mg/dl (140-200); Estimated Glomerular Filt Rate 57 ml/min (>60); GFR (African American) 69 ML/MIN (>60); Globulin 2.9 g/dL (1.3-3.2); Total Protein,Serum 7.1 g/dl (6.3-8.2); Triglycerides 318 mg/dl (30-150); VLDL Cholesterol 64 mg/dL (0-40)
[2021-09-21 17:49] LABS: Glucose 243 mg/dl (74-100); HDL Cholesterol 34 mg/dl (40-60)
[2021-09-21 18:00] LABS: Direct LDL Cholesterol 60.46 mg/dL (100-129)
[2021-09-21 18:03] LABS: Hemoglobin A1C 7.7 % (4.0-6.0)
[2021-09-21 18:20] LABS: Thyroid Stimulating Hormone 0.06 uIU/mL (0.465-4.68)
== END ==
PROVIDERS: PCP Internal Medicine Adolescent Medicine; Visit Provider Internal Medicine Adolescent Medicine
DX: I25.10 Atherosclerotic heart disease of native coronary artery without angina pectoris (principal); E11.8 Type 2 diabetes mellitus with unspecified complications; E03.9 Hypothyroidism, unspecified; N18.31 Chronic kidney disease, stage 3a; Z79.84 Long term (current) use of oral hypoglycemic drugs
CPT/HCPCS: 36415; 80053; 80061; 82043; 82570; 83036; 84443; 85025

== ENCOUNTER → 2021-10-04 14:38 | Outpatient (CLI) | payer MEDICARE, MEDICAID, SELFPAY ==
--- NOTE | 2021-10-04 14:43 | US_ITS ---
FINAL REPORT TECHNIQUE: Sonographic images were obtained of the retroperitoneum. CLINICAL HISTORY: KIDNEY STONE FINDINGS: The right kidney measures 10.4 cm. The left kidney measures 11.7 cm. There is no evidence of renal mass or hydronephrosis. The spleen is enlarged at 16.8 cm. The liver is fatty infiltrated. IMPRESSION: Fatty infiltrated liver. Splenomegaly. Reviewed, Interpreted and Dictated by Jonah Hill III, MD Transcribed by Ronni Valentine Authenticated by Jonah Hill III, MD on 10/04/2021 04:18:41 PM [facility]
== END ==
PROVIDERS: PCP Internal Medicine Adolescent Medicine; Visit Provider Urology
DX: N20.2 Calculus of kidney with calculus of ureter (principal)
CPT/HCPCS: 76770

== ENCOUNTER 2021-12-01 19:24 | Emergency (ER) | payer MEDICARE, MEDICAID, SELFPAY ==
[2021-12-01 19:45] VITALS: BP 138/66; PULSE 54; RESP 17; TEMP 36.8; O2SAT 95; BMI 27.2
--- NOTE | 2021-12-01 19:51 | HMH.EDUTC ---
[facility] [place] Clinical Impression: Sinusitis Qualifiers: Sinusitis location: unspecified location Chronicity: acute Recurrence: non-recurrent Qualified Code(s): J01.90 - Acute sinusitis, unspecified Disposition: Home, Self-Care Condition on Discharge: Good Instructions: Sinusitis, DI for Sinusitis Additional Instructions: Drink plenty of fluids. Take tylenol or ibuprofen for pain or fever. Take the medications as directed. Follow up with your regular doctor. GO TO THE ER FOR ANY WORSENING SYMPTOMS Don't start the oral steroids until tomorrow, since you had the shot here today. The cough medication (promethazine dm) will make you drowsy, so don't drive or operate heavy machinery after taking it. Prescriptions: Promethazine/Dextromethorphan [Promethazine-Dm Syrup] 5 ml PO Q6HP PRN #240 ml PRN Reason: Cough Transmission Status: [facility] by [facility] methylPREDNISolone [Medrol] 4 mg PO DIRECTED 6 Days #21 packet Transmission Status: Received by [facility] Azithromycin [Z-Ankit 250mg Tab*] 250 mg PO UD DOSE PK #6 tab Transmission Status: Received by [facility] Referrals: Toshia Kline APRN [Primary Care Provider] - Time of Disposition: 20:01 Medical Decision Making - Medical Records Medical records reviewed: No: I reviewed the patient's medical records. - Rob Inquiry Pt receiving controlled substance: No Vital Signs: 12/01/21 19:45 12/01/21 20:01 Temperature 98.2 F 98.2 F Temperature Source Oral Pulse Rate 54 L Pulse Rate [Left Radial] 54 L Respiratory Rate 17 17 Blood Pressure 138/66 Blood Pressure [Right Arm] 138/66 Blood Pressure Mean [Right Arm] 90 02 Sat by Pulse Oximetry 95 Orders (Tests/Meds): ED MEDICATIONS Discontinued Medications Generic Name Dose Route Start Last Admin Trade Name Freq PRN Reason Stop Dose Admin Ceftriaxone Sodium 1 gm 12/01/21 19:51 12/01/21 20:00 Ceftriaxone 1gm Vial IM 12/01/21 19:52 1 gm ONCE ONE Administration Lidocaine HCl 0 ml 12/01/21 19:51 12/01/21 20:00 Lidocaine 1% 5ml Pf Vial IM 12/01/21 19:52 2 ml ONCE ONE Administration Methylprednisolone Sodium Succinate 125 mg 12/01/21 19:51 12/01/21 20:00 Methylprednisolone Sod Succ 125mg Vial IM 12/01/21 19:52 125 mg ONCE ONE Administration [facility] [place] - General Stated complaint: POSSIBLE SINUS INFECTION Time Seen by Provider: 12/01/21 19:59 Description of Symptoms (Recalled from Triage Doc. by RN): patient comes in today with complaints of sinus congestion, headache, pressure in head and sneezing. pt states that she had covid 1 week ago HEENT Symptoms (Recalled from RN notes): Yes Resp Symptoms (Recalled from RN notes): Yes Skin Symptoms (Recalled from RN notes): No MS Symptoms (Recalled from RN notes): No Functional Status (Recalled from RN notes): wnl - History of Present Illness Provider Complaint: She states that she has had sinus congestion for the past 1 week. - Related Data Home Medications Medication Instructions Recorded Confirmed albuterol sulfate 90 mcg/actuation 2 puff INHALATION Q4-6H PRN 10/16/17 01/10/21 aerosol inhaler lamotrigine 100 mg tablet 100 mg PO BID 10/16/17 01/10/21 venlafaxine 150 mg 150 mg PO DAILY cap 10/16/17 01/10/21 capsule,extended release 24 hr buspirone 10 mg tablet 10 mg PO BID 10/17/17 01/10/21 fluticasone 100 mcg-salmeterol 50 1 puff INHALATION BID PRN 05/13/18 01/10/21 mcg/dose blistr powdr for inhalation Clopidogrel Bisulfate [Plavix 75mg 75 mg PO DAILY 05/19/18 01/10/21 Tab] alprazolam 1 mg tablet 1 mg PO TID PRN tab 07/02/19 01/10/21 hydroxyzine HCl 25 mg tablet 25 mg PO TID PRN tab 07/02/19 01/10/21 diltiazem HCl 120 mg 120 mg PO DAILY 08/10/19 01/10/21 capsule,extended release 24 hr Cholecalciferol (Vitamin D3) 2,000 unit PO DAILY 12/19/19 01/10/21 [Vitamin D3 1,000 Unit Cap] Magnesium Oxide [Mag-Ox 400mg Tab] 800 mg
[2021-12-01 20:01] VITALS: BP 138/66; PULSE 54; RESP 17; TEMP 36.8
== END 2021-12-01 20:04 | disposition home or self-care (01) ==
PROVIDERS: Emergency Provider Nurse Practitioner Family; PCP Nurse Practitioner Family
DX: J01.90 Acute sinusitis, unspecified (principal); R00.2 Palpitations; Z86.16 Personal history of COVID-19; I10 Essential (primary) hypertension; N28.9 Disorder of kidney and ureter, unspecified; I25.10 Atherosclerotic heart disease of native coronary artery without angina pectoris; I49.9 Cardiac arrhythmia, unspecified; E78.5 Hyperlipidemia, unspecified; E03.9 Hypothyroidism, unspecified; M19.90 Unspecified osteoarthritis, unspecified site; J98.4 Other disorders of lung; F32.A Depression, unspecified; F41.9 Anxiety disorder, unspecified; F17.210 Nicotine dependence, cigarettes, uncomplicated; Z79.51 Long term (current) use of inhaled steroids; Z79.82 Long term (current) use of aspirin; Z79.899 Other long term (current) drug therapy; Z88.2 Allergy status to sulfonamides; Z88.6 Allergy status to analgesic agent; Z88.8 Allergy status to other drugs, medicaments and biological substances; Z87.442 Personal history of urinary calculi
CPT/HCPCS: 96372; 99213; G0463; J0696

== ENCOUNTER 2021-12-08 20:15 | Emergency (ER) | payer MEDICARE, MEDICAID, SELFPAY ==
[2021-12-08 20:17] VITALS: BP 168/58; PULSE 58; RESP 19; TEMP 36.9; O2SAT 97; BMI 27.8
--- NOTE | 2021-12-08 20:45 | HMH.EDGENADL ---
ED Disposition Clinical Impression: Renal calculus or stone Disposition: Home, Self-Care Condition on Discharge: Good Additional Instructions: Please continue supportive care at home including drinking plenty of fluids, tylenol every six hours and toradol as needed every six hours. You may take zofran for nausea. Please use a strainer when you urinate. If your condition worsens or any other concerns arise, please return to the emergency department for reassessment. Additionally, please follow-up with your urologist on Saturday. Prescriptions: Ketorolac Tromethamine [Toradol 10mg tablet] 10 mg PO Q6H PRN 4 Days #16 tab MDD 40mg/day PRN Reason: Moderate Pain Transmission Status: Received by [facility] #[id number] Ondansetron [Zofran 4mg ODT] 4 mg PO TIDP PRN #12 tab PRN Reason: Nausea Transmission Status: Received by [facility] #[id number] Referrals: Avelino Salas MD [Primary Care Provider] - - Critical Care Critical Care Time: No Attestation: On 12/08/21, the high probability of a clinically significant, sudden or life threatening deterioration of the following system(s) required my full and direct attention, intervention and personal management. The time I documented below is in addition to time spent performing reported procedures but includes the following listed in this critical care notation. Medical Decision Making - Medical Records Medical records reviewed: Yes: I reviewed the patient's medical records. - Rob Inquiry Pt receiving controlled substance: Yes (one time dose for acute pain ) Rob was queried for this patient: No Risks and benefits of using a controlled substance: were not discussed with pt by me Vital Signs: 12/08/21 20:17 12/08/21 21:01 12/08/21 21:30 Temperature 98.4 F Temperature Source Oral Pulse Rate 59 L 60 Pulse Rate [Right] 58 L Respiratory Rate 19 Blood Pressure 140/64 141/61 H Blood Pressure [Right Arm] 168/58 H Blood Pressure Mean 120 112 Blood Pressure Mean [Right Arm] 94 Blood Pressure Source [Right Arm] Automatic Cuff 02 Sat by Pulse Oximetry 97 98 95 Oxygen Delivery Method Room Air Room Air Room Air 12/08/21 22:04 Temperature Temperature Source Pulse Rate 90 Pulse Rate [Right] Respiratory Rate Blood Pressure 169/88 H Blood Pressure [Right Arm] Blood Pressure Mean Blood Pressure Mean [Right Arm] Blood Pressure Source [Right Arm] 02 Sat by Pulse Oximetry 99 Oxygen Delivery Method Room Air - Lab Data Lab results reviewed: Yes: I reviewed the patient's lab results. Lab Results 12/08/21 20:29: WBC 9.3, RBC 4.11 L, Hgb 13.3, Hct 40.5, MCV 98.3, MCH 32.4 H, MCHC 33.0, RDW 14.4, Plt Count 168, MPV 8.3, Neut % (Auto) 67.5, Lymph % (Auto) 22.0, [place] % (Auto) 5.4, Eos % (Auto) 3.0, Baso % (Auto) 2.2 H, Neut # (Auto) 6.3, Lymph # (Auto) 2.0, [place] # (Auto) 0.5, Eos # (Auto) 0.3, Baso # (Auto) 0.2 12/08/21 20:29: Sodium 137, Potassium 4.4, Chloride 107, Carbon Dioxide 23, Anion Gap 11.4, BUN 15, Creatinine 0.90, Estimated Creat Clear 68, Estimated GFR 65, Est GFR ( Amer) 78, Glucose 221 H, Calcium 9.5, Total Bilirubin 0.2, AST 86 H, ALT 67, Alkaline Phosphatase 271 H, Total Protein 8.1, Albumin 4.2, Globulin 3.9 H, Albumin/Globulin Ratio 1.1 12/08/21 20:29: Lactate 1.7 12/08/21 20:45: Urine Color Yellow, Urine Appearance Clear, Urine pH 5.5, Ur Specific [place] 1.025, Urine Protein 2+, Urine Glucose (UA) 2+, Urine Ketones Negative, Urine Blood 2+, Urine Nitrate Negative, Urine Bilirubin Negative, Urine Urobilinogen 0.2, Ur Leukocyte Esterase Negative, Urine RBC 5-10, Urine WBC 20-50, Ur Squamous Epith Cells 3-5, Urine Bacteria Trace Result diagrams: 12/08/21 20:29 12/08/21 20:29 Orders (Tests/Meds): ED MEDICATIONS Generic Name Dose Route Start Last Admin Trade Name Freq PRN Reason Stop Dose Admin Lactated Ringer's 1,000 mls @ 999 mls/hr 12/08/21 22:00 12/08/21 22:30 Lactated Ringer's 1000 Ml Bag IV 0
[2021-12-08 21:01] VITALS: BP 140/64; PULSE 59; O2SAT 98
[2021-12-08 21:30] VITALS: BP 141/61; PULSE 60; O2SAT 95
--- NOTE | 2021-12-08 21:49 | CT_ITS ---
PROCEDURE INFORMATION: Exam: CT Abdomen And Pelvis Without Contrast Exam date and time: 12/08/21 09:55 PM Age: 56 years old Clinical indication: Other: Flank pain; Prior surgery; Surgery date: 6+ months; Surgery type: Colon surgery; Additional info: H/o renal stones, flank and suprapubic pain TECHNIQUE: Imaging protocol: Computed tomography of the abdomen and pelvis without contrast. Radiation optimization: All CT scans at this facility use at least one of these dose optimization techniques: automated exposure control; mA and/or kV adjustment per patient size (includes targeted exams where dose is matched to clinical indication); or iterative reconstruction. COMPARISON: CT ABDOMEN PELVIS WO CON 04/07/21 04:51 PM FINDINGS: Tubes, catheters and devices: None noted. Lungs: Lung bases appear clear. Heart: No significant coronary calcifications. No cardiomegaly. No significant pericardial effusion. Liver: Hepatomegaly. No mass. Gallbladder and bile ducts: Normal. No calcified stones. No ductal dilation. Pancreas: Normal. No ductal dilation. Spleen: Prominent splenomegaly. Calcified granulomata Adrenal glands: Normal. No mass. Kidneys and ureters: Left perirenal stranding. No hydronephrosis. Stomach and bowel: Right upper quadrant colostomy. Mike's pouch. No obstruction. No mucosal thickening. Appendix: No evidence of appendicitis. Intraperitoneal space: Unremarkable. No free air. No significant fluid collection. Retroperitoneal space: No significant retroperitoneal inflammatory changes are noted. Vasculature: Unremarkable. No abdominal aortic aneurysm. Lymph nodes: Unremarkable. No enlarged lymph nodes. Urinary bladder: Recently passed calculus in the bladder base. Suspect left-sided calculus due to collimation and perirenal stranding. Reproductive: Unremarkable as visualized. Bones/joints: Unremarkable. No acute fracture. Soft tissues: Sacral stimulator. IMPRESSION: 1. Calculus in the bladder, suspect recently passed left ureteral stone. 2. Prominent hepatosplenomegaly 3. Right upper quadrant colostomy. Mike's pouch. 4. Sacral stimulator.
[2021-12-08 21:57] LABS: Microscopic, Urine URINE MICROSCOPIC (MICROSCOPIC)
[2021-12-08 22:02] LABS: Basophils # 0.2 K/mm3 (0-0.2); Basophils % 2.2 % (0.1-2.0); Eosinophils # 0.3 K/mm3 (0.0-0.4); Hematocrit 40.5 % (37.0-47.0); Hemoglobin 13.3 g/dL (12.2-16.2); Mean Corpuscular Hemoglobin 32.4 pg (27.0-31.2); Mean Corpuscular Volume 98.3 fl (81-99); Mean Platelet Volume 8.3 fl (7.4-10.4); Monocytes # 0.5 K/mm3 (0.1-1.0); Monocytes % 5.4 % (1.7-9.3); Neutrophils # 6.3 K/mm3 (1.8-7.8); Neutrophils % 67.5 % (37.0-80.0); Platelet Count 168 K/mm3 (142-424); Red Blood Count 4.11 M/mm3 (4.20-5.40); Red Cell Distribution Width 14.4 % (11.5-17.5); White Blood Count 9.3 K/mm3 (4.8-10.8)
[2021-12-08 22:04] VITALS: BP 169/88; PULSE 90; O2SAT 99
[2021-12-08 22:06] LABS: Alanine Aminotransferase 67 U/L (12-78); Albumin Level 4.2 g/dl (3.5-5.0); Albumin/Globulin Ratio 1.1 (1.1-1.8); Alkaline Phosphatase 271 U/L (38-126); Anion Gap 11.4 mEq/L (5-15); Aspartate Amino Transferase 86 U/L (14-36); Bilirubin,Total 0.2 mg/dl (0.2-1.3); Blood Urea Nitrogen 15 mg/dl (7-17); Calcium 9.5 mg/dl (8.4-10.2); Carbon Dioxide 23 mmol/L (22.0-30.0); Chloride 107 mmol/L (98-107); Creatinine Clearance Estimated 68 mL/min (50-200); Estimated Glomerular Filt Rate 65 ml/min (>60); GFR (African American) 78 ML/MIN (>60); Globulin 3.9 g/dL (1.3-3.2); Glucose 221 mg/dl (74-100); Potassium 4.4 mmoL/L (3.5-5.1); Sodium 137 mmol/L (136-145); Total Protein,Serum 8.1 g/dl (6.3-8.2)
[2021-12-08 22:07] LABS: Lactic Acid 1.7 mmol/L (0.7-2.1)
[2021-12-08 22:07] LABS: Appearance,Urine CLEAR (Clear); Bilirubin,Urine Negative (Negative); Blood, Urine 2+ (Negative); Color,Urine YELLOW (Yellow); Glucose,Urine (UA) 2+ (Negative); Ketones,Urine Negative (Negative); Leukocyte Esterase,Urine Negative (Negative); Nitrate,Urine Negative (Negative); PH,Urine 5.5 (5.0-8.5); Protein,Urine 2+ (Negative); Specific Gravity, Urine 1.025 (1.005-1.030); Urobilinogen,Urine 0.2 EU/dl (0.2)
[2021-12-08 22:17] LABS: Bacteria,Urine Trace /lpf; WBC,Urine 20-50 #/hpf (0-3)
[2021-12-09 03:24] VITALS: BP 169/88; PULSE 90; RESP 18; TEMP 36.8; O2SAT 99
== END 2021-12-09 03:26 | disposition home or self-care (01) ==
PROVIDERS: Emergency Provider Emergency Medicine; PCP Internal Medicine Adolescent Medicine
DX: N20.0 Calculus of kidney (principal); Z88.2 Allergy status to sulfonamides; Z88.6 Allergy status to analgesic agent; Z88.8 Allergy status to other drugs, medicaments and biological substances; J44.9 Chronic obstructive pulmonary disease, unspecified; I25.10 Atherosclerotic heart disease of native coronary artery without angina pectoris; E11.9 Type 2 diabetes mellitus without complications; E78.5 Hyperlipidemia, unspecified; I10 Essential (primary) hypertension; R00.2 Palpitations; F41.9 Anxiety disorder, unspecified; Z72.0 Tobacco use
CPT/HCPCS: 74176; 80053; 81001; 83605; 85025; 87086; 96365; 96375; 99284

== ENCOUNTER → 2021-12-20 15:16 | Outpatient (CLI) | payer MEDICARE, MEDICAID, SELFPAY ==
[2021-12-20 15:44] LABS: Basophils # 0.1 K/mm3 (0-0.2); Eosinophils # 0.3 K/mm3 (0.0-0.4); Eosinophils % 3.8 % (0.1-12.0); Hematocrit 37.7 % (37.0-47.0); Hemoglobin 13.1 g/dL (12.2-16.2); Lymphocytes # 2.1 K/mm3 (0.7-4.5); Lymphocytes % 31.7 % (10-50); Mean Corpuscular HGB Conc 34.6 g/dL (31.8-35.4); Mean Corpuscular Hemoglobin 31.1 pg (27.0-31.2); Mean Corpuscular Volume 89.7 fl (81-99); Mean Platelet Volume 7.8 fl (7.4-10.4); Monocytes # 0.4 K/mm3 (0.1-1.0); Monocytes % 5.5 % (1.7-9.3); Neutrophils # 3.9 K/mm3 (1.8-7.8); Neutrophils % 58.1 % (37.0-80.0); Platelet Count 134 K/mm3 (142-424); Red Cell Distribution Width 14.4 % (11.5-17.5); White Blood Count 6.7 K/mm3 (4.8-10.8)
[2021-12-20 16:07] LABS: Alanine Aminotransferase 47 U/L (12-78); Albumin Level 4.1 g/dl (3.5-5.0); Albumin/Globulin Ratio 1.3 (1.1-1.8); Alkaline Phosphatase 240 U/L (38-126); Anion Gap 11.6 mEq/L (5-15); Aspartate Amino Transferase 61 U/L (14-36); Blood Urea Nitrogen 14 mg/dl (7-17); Calcium 9.3 mg/dl (8.4-10.2); Carbon Dioxide 25 mmol/L (22.0-30.0); Chloride 107 mmol/L (98-107); Estimated Glomerular Filt Rate 57 ml/min (>60); GFR (African American) 69 ML/MIN (>60); Globulin 3.1 g/dL (1.3-3.2); Glucose 204 mg/dl (74-100); Potassium 4.6 mmoL/L (3.5-5.1); Sodium 139 mmol/L (136-145); Total Protein,Serum 7.2 g/dl (6.3-8.2)
[2021-12-20 16:29] LABS: Bilirubin,Total < 0.1 mg/dl (0.2-1.3)
[2021-12-24 09:09] LABS: ALT (SGPT) P5P 44 IU/L (0-40); AST (SGOT) P5P 54 IU/L (0-40); Alpha 2-Macroglobulins, Qn 226 mg/dL (110-276); Apolipoprotein A-1 123 mg/dL (116-209); Bilirubin, Total 0.1 mg/dL (0.0-1.2); Cholesterol, Total 145 mg/dL (100-199); Fibrosis Score 0.38 (0.00-0.21); Fibrosis Stage F1-F2 (.); GGT 721 IU/L (0-60); Glucose 202 mg/dL (65-99); Haptoglobin 101 mg/dL (33-346); NASH Score 0.75 (0.25); Steatosis Score 0.94 (0.00-0.30); Triglycerides 280 mg/dL (0-149)
== END ==
PROVIDERS: PCP Nurse Practitioner Family; Visit Provider Nurse Practitioner Family
DX: R10.84 Generalized abdominal pain (principal); K76.0 Fatty (change of) liver, not elsewhere classified; R94.5 Abnormal results of liver function studies; K30 Functional dyspepsia; K31.84 Gastroparesis; K58.1 Irritable bowel syndrome with constipation; R14.0 Abdominal distension (gaseous)
CPT/HCPCS: 36415; 80053; 85025

== ENCOUNTER → 2022-03-01 07:47 | Outpatient (CLI) | payer MEDICARE, MEDICAID, SELFPAY ==
--- NOTE | 2022-03-01 07:57 | US_ITS ---
FINAL REPORT CLINICAL HISTORY: ABN LIVER FUNCTION,IBS,BLOATING,ABD PAIN FINDINGS: Sonographic images of the right upper quadrant were obtained. The pancreas is partially obscured. The liver is mildly fatty infiltrated and somewhat enlarged. The portal vein is dilated at 14 mm with normal directional flow. The gallbladder appears normal without evidence of gallstones.There is no evidence of biliary ductal dilatation.The common duct measures 2 mm. Limited images of the right kidney are unremarkable. IMPRESSION: Mildly enlarged fatty liver. Dilated portal vein. Reviewed, Interpreted and Dictated by Jonah Hill III, MD Transcribed by Zoie Hearn Authenticated and [facility]
[2022-03-01 09:14] LABS: Basophils # 0.2 K/mm3 (0-0.2); Basophils % 2.7 % (0.1-2.0); Eosinophils # 0.4 K/mm3 (0.0-0.4); Hematocrit 41.8 % (37.0-47.0); Hemoglobin 13.9 g/dL (12.2-16.2); Lymphocytes # 2.7 K/mm3 (0.7-4.5); Lymphocytes % 30.7 % (10-50); Mean Corpuscular HGB Conc 33.2 g/dL (31.8-35.4); Mean Corpuscular Volume 96.4 fl (81-99); Mean Platelet Volume 8.1 fl (7.4-10.4); Monocytes # 0.5 K/mm3 (0.1-1.0); Monocytes % 5.6 % (1.7-9.3); Neutrophils # 4.9 K/mm3 (1.8-7.8); Neutrophils % 55.9 % (37.0-80.0); Platelet Count 151 K/mm3 (142-424); Red Blood Count 4.34 M/mm3 (4.20-5.40); Red Cell Distribution Width 13.8 % (11.5-17.5); White Blood Count 8.7 K/mm3 (4.8-10.8)
[2022-03-01 09:30] LABS: INR 1.06 (0.9-1.1); Prothrombin Time 11.4 seconds (10.1-12.5)
[2022-03-01 10:06] LABS: Chloride 102 mmol/L (98-107); Sodium 140 mmol/L (136-145)
[2022-03-01 10:08] LABS: Blood Urea Nitrogen 17 mg/dl (7-17); Estimated Glomerular Filt Rate 51 ml/min (>60); GFR (African American) 62 ML/MIN (>60)
[2022-03-01 10:09] LABS: Alanine Aminotransferase 34 U/L (12-78); Albumin Level 4.3 g/dl (3.5-5.0); Albumin/Globulin Ratio 1.3 (1.1-1.8); Alkaline Phosphatase 231 U/L (38-126); Aspartate Amino Transferase 60 U/L (14-36); Bilirubin,Total 0.2 mg/dl (0.2-1.3); Calcium 9.3 mg/dl (8.4-10.2); Carbon Dioxide 28 mmol/L (22.0-30.0); Globulin 3.2 g/dL (1.3-3.2); Glucose 228 mg/dl (74-100); Iron 76 ug/dL (37-170); Total Protein,Serum 7.5 g/dl (6.3-8.2)
[2022-03-01 10:18] LABS: Total Iron Binding Capacity 360 ug/dL (265-497)
[2022-03-01 10:45] LABS: Ferritin 25.7 ng/ml (11.1-264)
[2022-03-02 11:12] LABS: Ceruloplasmin 23.7 mg/dL (19.0-39.0); Immunoglobulin A, Qn 374 mg/dL (87-352); Immunoglobulin G, Qn 1174 mg/dL (586-1602); Immunoglobulin M, Qn 255 mg/dL (26-217); Liver-Kidney Microsomal Ab 1.3 Units (0.0-20.0)
[2022-03-02 15:10] LABS: Actin (Smooth Muscle) Antibody 23 Units (0-19); Angiotensin Converting Enzyme 29 U/L (14-82); Endomysial IgA Antibody Negative (Negative); Mitochondrial (M2) Antibody <20.0 Units (0.0-20.0)
[2022-03-02 16:13] LABS: Deamidated Gliadin Abs, IgA 13 units (0-19); Deamidated Gliadin Abs, IgG 2 units (0-19); Tissue Transglutaminase IgA Ab <2 U/mL (0-3); Tissue Transglutaminase IgG Ab 5 U/mL (0-5)
[2022-03-05 20:46] LABS: Alpha-1-Antitrypsin 164 mg/dL (101-187)
[2022-03-07 06:16] LABS: Reticulin IgA Antibody Negative titer (Neg:<1:2.5)
[2022-03-17 16:57] LABS: Hep A Ab, IgM Negative; Hepatitis B Core Antibody IgM Negative; Hepatitis B Surface Antigen Negative; Hepatitis C Antibody <0.1
[2022-03-17 16:58] LABS: Antinuclear Antibodies (ANA) Negative
== END ==
PROVIDERS: PCP Nurse Practitioner Family; Visit Provider Nurse Practitioner Family
DX: R94.5 Abnormal results of liver function studies (principal); K75.81 Nonalcoholic steatohepatitis (NASH); K30 Functional dyspepsia; K31.84 Gastroparesis; K58.1 Irritable bowel syndrome with constipation; R14.0 Abdominal distension (gaseous); R10.84 Generalized abdominal pain
CPT/HCPCS: 36415; 76705; 80053; 80074; 81256; 82103; 82104; 82164; 82390; 82728; 82784; 83516; 83540; 83550; 85025; 85610; 86038; 86255; 86256; 86376

== ENCOUNTER → 2022-05-08 09:12 | Outpatient (CLI) | payer MEDICARE, MEDICAID, SELFPAY ==
--- NOTE | 2022-05-08 09:24 | CA_ITS ---
FINAL REPORT TECHNIQUE: Color Doppler, duplex Doppler and hartley scale sonography of the bilateral neck arterial vasculature was performed. Velocities were measured in the carotid arteries. Stenosis evaluation based on the validated velocity criteria. CLINICAL HISTORY: . smoker, vianey FINDINGS: The peak systolic velocity of the right common carotid artery is 81 cm/s. The peak systolic velocity of the right internal carotid artery is 111 cm/s and end diastolic velocity 31 cm/s. The ICA/CCA ratio is 1.23. A small amount of plaque is present. The right external carotid artery is patent. The right vertebral artery is patent with antegrade flow. The peak systolic velocity of the left common carotid artery is 69 cm/s. The peak systolic velocity of the left internal carotid artery is 107 cm/s and end diastolic velocity 32 cm/s. The ICA/CCA ratio is 1.5. A small amount of plaque is present. The left external carotid artery is patent.The left vertebral artery is patent with antegrade flow. IMPRESSION: Less than 50% bilateral carotid stenosis. Bilateral patent vertebral arteries with antegrade flow. If indicated, CTA or MRA could further evaluate. Reviewed, Interpreted and Dictated by Jonah Hill III, MD Transcribed by Ronni Valentine Authenticated and [facility]
[2022-05-08 11:04] LABS: Alanine Aminotransferase 34 U/L (12-78); Albumin Level 4.3 g/dl (3.5-5.0); Albumin/Globulin Ratio 1.4 (1.1-1.8); Alkaline Phosphatase 258 U/L (38-126); Anion Gap 16.1 mEq/L (5-15); Aspartate Amino Transferase 55 U/L (14-36); Bilirubin,Total 0.3 mg/dl (0.2-1.3); Blood Urea Nitrogen 23 mg/dl (7-17); Calcium 9.9 mg/dl (8.4-10.2); Carbon Dioxide 28 mmol/L (22.0-30.0); Chloride 98 mmol/L (98-107); Chol/HDL Ratio 4.2 (1-3.5); Cholesterol 166 mg/dl (140-200); Estimated Glomerular Filt Rate 42 ml/min (>60); GFR (African American) 51 ML/MIN (>60); Globulin 3.1 g/dL (1.3-3.2); Glucose 282 mg/dl (74-100); HDL Cholesterol 40 mg/dl (40-60); Potassium 4.1 mmoL/L (3.5-5.1); Sodium 138 mmol/L (136-145); Total Protein,Serum 7.4 g/dl (6.3-8.2)
[2022-05-08 11:05] LABS: Triglycerides 435 mg/dl (30-150)
[2022-05-08 11:15] LABS: Direct LDL Cholesterol 71.14 mg/dL (100-129)
== END ==
PROVIDERS: PCP Nurse Practitioner Family; Visit Provider Internal Medicine
DX: I65.23 Occlusion and stenosis of bilateral carotid arteries (principal)
CPT/HCPCS: 36415; 80053; 80061; 93880

== ENCOUNTER → 2022-06-04 15:56 | Outpatient (CLI) | payer MEDICARE, MEDICAID, SELFPAY ==
[2022-06-04 17:11] LABS: Basophils # 0.1 K/mm3 (0-0.2); Basophils % 1.8 % (0.1-2.0); Eosinophils # 0.3 K/mm3 (0.0-0.4); Hematocrit 40.3 % (37.0-47.0); Hemoglobin 13.9 g/dL (12.2-16.2); Lymphocytes # 2.2 K/mm3 (0.7-4.5); Lymphocytes % 35.2 % (10-50); Mean Corpuscular HGB Conc 34.6 g/dL (31.8-35.4); Mean Corpuscular Volume 89.7 fl (81-99); Mean Platelet Volume 8.4 fl (7.4-10.4); Monocytes # 0.3 K/mm3 (0.1-1.0); Monocytes % 5.4 % (1.7-9.3); Neutrophils # 3.3 K/mm3 (1.8-7.8); Neutrophils % 53.6 % (37.0-80.0); Platelet Count 134 K/mm3 (142-424); Red Blood Count 4.49 M/mm3 (4.20-5.40); White Blood Count 6.2 K/mm3 (4.8-10.8)
[2022-06-04 17:16] LABS: Hemoglobin A1C 9.7 % (4.0-6.0)
[2022-06-04 17:36] LABS: Alanine Aminotransferase 29 U/L (12-78); Albumin Level 4.3 g/dl (3.5-5.0); Albumin/Globulin Ratio 1.4 (1.1-1.8); Alkaline Phosphatase 237 U/L (38-126); Anion Gap 12.2 mEq/L (5-15); Aspartate Amino Transferase 55 U/L (14-36); Bilirubin,Total 0.4 mg/dl (0.2-1.3); Blood Urea Nitrogen 15 mg/dl (7-17); Calcium 9.5 mg/dl (8.4-10.2); Carbon Dioxide 28 mmol/L (22.0-30.0); Chloride 102 mmol/L (98-107); Estimated Glomerular Filt Rate 57 ml/min (>60); GFR (African American) 69 ML/MIN (>60); Globulin 3.1 g/dL (1.3-3.2); Glucose 173 mg/dl (74-100); Potassium 4.2 mmoL/L (3.5-5.1); Sodium 138 mmol/L (136-145); Total Protein,Serum 7.4 g/dl (6.3-8.2)
[2022-06-04 18:06] LABS: Thyroid Stimulating Hormone 0.76 uIU/mL (0.465-4.68)
[2022-06-09 13:16] LABS: Pancreatic Elastase, Fecal >500 (>200)
== END ==
PROVIDERS: PCP Nurse Practitioner Family; Visit Provider Internal Medicine Gastroenterology
DX: R10.13 Epigastric pain (principal); R14.0 Abdominal distension (gaseous); K31.84 Gastroparesis; E03.9 Hypothyroidism, unspecified; E11.9 Type 2 diabetes mellitus without complications; Z79.84 Long term (current) use of oral hypoglycemic drugs
CPT/HCPCS: 36415; 80053; 82656; 83036; 84443; 85025

== ENCOUNTER → 2022-09-27 13:50 | Outpatient (CLI) | payer MEDICARE, MEDICAID, SELFPAY ==
[2022-09-27 14:15] LABS: Basophils # 0.1 K/mm3 (0-0.2); Basophils % 1.1 % (0.1-2.0); Eosinophils # 0.4 K/mm3 (0.0-0.4); Eosinophils % 5.2 % (0.1-12.0); Hematocrit 38.9 % (37.0-47.0); Hemoglobin 12.9 g/dL (12.2-16.2); Lymphocytes % 29.6 % (10-50); Mean Corpuscular HGB Conc 33.2 g/dL (31.8-35.4); Mean Corpuscular Hemoglobin 30.7 pg (27.0-31.2); Mean Corpuscular Volume 92.5 fl (81-99); Mean Platelet Volume 8.5 fl (7.4-10.4); Monocytes # 0.4 K/mm3 (0.1-1.0); Monocytes % 6.3 % (1.7-9.3); Neutrophils % 57.8 % (37.0-80.0); Platelet Count 126 K/mm3 (142-424); Red Blood Count 4.21 M/mm3 (4.20-5.40); Red Cell Distribution Width 13.9 % (11.5-17.5); White Blood Count 6.9 K/mm3 (4.8-10.8)
[2022-09-27 14:36] LABS: Hemoglobin A1C 8.9 % (4.0-6.0)
[2022-09-27 15:16] LABS: Alanine Aminotransferase 20 U/L (12-78); Albumin Level 4.3 g/dl (3.5-5.0); Albumin/Globulin Ratio 1.3 (1.1-1.8); Alkaline Phosphatase 227 U/L (38-126); Anion Gap 11.2 mEq/L (5-15); Aspartate Amino Transferase 43 U/L (14-36); Bilirubin,Total 0.4 mg/dl (0.2-1.3); Blood Urea Nitrogen 18 mg/dl (7-17); Calcium 9.3 mg/dl (8.4-10.2); Carbon Dioxide 27 mmol/L (22.0-30.0); Chloride 100 mmol/L (98-107); Chol/HDL Ratio 5.1 (1-3.5); Cholesterol 153 mg/dl (140-200); Estimated Glomerular Filt Rate 51 ml/min (>60); GFR (African American) 62 ML/MIN (>60); Globulin 3.4 g/dL (1.3-3.2); Glucose 243 mg/dl (74-100); HDL Cholesterol 30 mg/dl (40-60); Potassium 4.2 mmoL/L (3.5-5.1); Sodium 134 mmol/L (136-145); Total Protein,Serum 7.7 g/dl (6.3-8.2); Triglycerides 357 mg/dl (30-150); VLDL Cholesterol 71 mg/dL (0-40)
[2022-09-27 15:27] LABS: Direct LDL Cholesterol 58.47 mg/dL (100-129)
[2022-09-27 15:36] LABS: Microalbumin/Creatinine Ratio 43.7
[2022-09-27 15:46] LABS: Creatinine,Urine Random 74 mg/dL (Not Estab.)
[2022-09-27 15:48] LABS: Thyroid Stimulating Hormone 0.84 uIU/mL (0.465-4.68)
== END ==
PROVIDERS: PCP Nurse Practitioner Family; Visit Provider Nurse Practitioner Family
DX: E11.9 Type 2 diabetes mellitus without complications (principal)
CPT/HCPCS: 36415; 80053; 80061; 82043; 82570; 83036; 84443; 85025

== ENCOUNTER → 2022-11-29 15:40 | Outpatient (CLI) | payer MEDICARE, MEDICAID, SELFPAY ==
--- NOTE | 2022-11-29 15:43 | MM_ITS ---
PROCEDURE INFORMATION: Exam: Bilateral Screening 3D Mammography Exam date and time: 11/29/2022 3:34 PM Age: 57 years old Clinical indication: Screening examination TECHNIQUE: Imaging protocol: Bilateral Screening tomosynthesis and 2D mammography including computer-aided detection (CAD) when performed. COMPARISON: 1. DMSB DIG MAMM-SCREEN PARVIN 03/29/2014 3:15 PM 2. DIGMAMMS MAMMOGRAM SCREEN-AWS CONSULTANT N/C 02/22/2009 3:45 PM FINDINGS: MAMMOGRAPHY: Breast composition: The breasts are heterogeneously dense, which may obscure small masses. Mass: None. Architectural distortion: None. Calcifications: No suspicious calcifications. Asymmetric density: None. Skin thickening: None. Axillary adenopathy: None. IMPRESSION: No mammographic evidence of malignancy. Annual screening is recommended unless otherwise clinically indicated. ASSESSMENT: BI-RADS Category 1: Negative
== END ==
PROVIDERS: PCP Nurse Practitioner Family; Visit Provider Nurse Practitioner Family
DX: Z12.31 Encounter for screening mammogram for malignant neoplasm of breast (principal)
CPT/HCPCS: 77063; 77067

== ENCOUNTER → 2022-12-12 15:49 | Outpatient (CLI) | payer MEDICARE, MEDICAID, SELFPAY ==
[2022-12-12 16:23] LABS: Basophils % 0.8 % (0.1-2.0); Eosinophils # 0.4 K/mm3 (0.0-0.4); Eosinophils % 8.2 % (0.1-12.0); Hematocrit 35.7 % (37.0-47.0); Hemoglobin 11.5 g/dL (12.2-16.2); Lymphocytes # 1.6 K/mm3 (0.7-4.5); Lymphocytes % 32.2 % (10-50); Mean Corpuscular HGB Conc 32.3 g/dL (31.8-35.4); Mean Corpuscular Hemoglobin 28.9 pg (27.0-31.2); Mean Corpuscular Volume 89.5 fl (81-99); Mean Platelet Volume 8.1 fl (7.4-10.4); Monocytes # 0.3 K/mm3 (0.1-1.0); Neutrophils # 2.7 K/mm3 (1.8-7.8); Neutrophils % 52.8 % (37.0-80.0); Platelet Count 110 K/mm3 (142-424); Red Blood Count 3.98 M/mm3 (4.20-5.40); Red Cell Distribution Width 14.1 % (11.5-17.5); White Blood Count 5.1 K/mm3 (4.8-10.8)
[2022-12-12 16:32] LABS: Hemoglobin A1C 9.2 % (4.0-6.0)
[2022-12-12 16:37] LABS: Alanine Aminotransferase 26 U/L (12-78); Albumin Level 3.8 g/dl (3.5-5.0); Albumin/Globulin Ratio 1.2 (1.1-1.8); Alkaline Phosphatase 230 U/L (38-126); Anion Gap 14.6 mEq/L (5-15); Aspartate Amino Transferase 46 U/L (14-36); Bilirubin,Total 0.2 mg/dl (0.2-1.3); Blood Urea Nitrogen 15 mg/dl (7-17); Calcium 8.8 mg/dl (8.4-10.2); Carbon Dioxide 27 mmol/L (22.0-30.0); Chloride 102 mmol/L (98-107); Estimated Glomerular Filt Rate 57 ml/min (>60); GFR (African American) 69 ML/MIN (>60); Globulin 3.3 g/dL (1.3-3.2); Glucose 249 mg/dl (74-100); Potassium 4.6 mmoL/L (3.5-5.1); Sodium 139 mmol/L (136-145); Total Protein,Serum 7.1 g/dl (6.3-8.2)
[2022-12-12 17:08] LABS: Thyroid Stimulating Hormone 0.24 uIU/mL (0.465-4.68)
== END ==
PROVIDERS: PCP Nurse Practitioner Family; Visit Provider Nurse Practitioner Family
DX: E11.9 Type 2 diabetes mellitus without complications (principal); Z79.899 Other long term (current) drug therapy; E03.9 Hypothyroidism, unspecified; N18.31 Chronic kidney disease, stage 3a
CPT/HCPCS: 36415; 80053; 83036; 84443; 85025

== ENCOUNTER → 2023-01-07 16:37 | Outpatient (CLI) | payer MEDICARE, MEDICAID, SELFPAY ==
[2023-01-07 16:50] LABS: Adenovirus F 40/41, stool Not Detected (NotDetected); Astrovirus Not Detected (NotDetected); Campylobacter Not Detected (NotDetected); Clostridium Difficile A/B, PCR Not Detected (NotDetected); Cryptosporidium Not Detected (NotDetected); Cyclospora Cayetanesis Not Detected (NotDetected); Entamoeba histolytica Not Detected (NotDetected); Enteroaggregative E coli Not Detected (NotDetected); Enteropathogenic E coli Not Detected (NotDetected); Enterotoxigenic E coli Not Detected (NotDetected); Giardia lamblia Not Detected (NotDetected); Norovirus Not Detected (NotDetected); Plesimonas Shigalloides, PCR Not Detected (NotDetected); Rotavirus A Not Detected (NotDetected); Salmonella, PCR Not Detected (NotDetected); Sapovirus Not Detected (NotDetected); Shiga-like toxin E coli Not Detected (NotDetected); Shigella Enterovasive E coli Not Detected (NotDetected); Vibrio Cholerae Not Detected (NotDetected); Vibrio, PCR Not Detected (NotDetected); Yersinia Entercolitica, PCR Not Detected (NotDetected)
== END ==
PROVIDERS: PCP Nurse Practitioner Family; Visit Provider Internal Medicine Gastroenterology
DX: R10.13 Epigastric pain (principal); G90.9 Disorder of the autonomic nervous system, unspecified; R94.5 Abnormal results of liver function studies; R14.0 Abdominal distension (gaseous); R19.5 Other fecal abnormalities; R19.7 Diarrhea, unspecified
CPT/HCPCS: 87506

== ENCOUNTER → 2023-02-13 05:49 | Outpatient (CLI) | payer MEDICARE, MEDICAID, SELFPAY ==
[2023-02-13 08:14] LABS: Basophils # 0.1 K/mm3 (0-0.2); Basophils % 0.9 % (0.1-2.0); Eosinophils # 0.2 K/mm3 (0.0-0.4); Eosinophils % 4.8 % (0.1-12.0); Hematocrit 36.9 % (37.0-47.0); Hemoglobin 11.8 g/dL (12.2-16.2); Lymphocytes # 1.4 K/mm3 (0.7-4.5); Lymphocytes % 29.3 % (10-50); Mean Corpuscular Hemoglobin 28.5 pg (27.0-31.2); Mean Corpuscular Volume 89.1 fl (81-99); Mean Platelet Volume 9.4 fl (7.4-10.4); Monocytes # 0.4 K/mm3 (0.1-1.0); Monocytes % 7.3 % (1.7-9.3); Neutrophils # 2.8 K/mm3 (1.8-7.8); Neutrophils % 57.7 % (37.0-80.0); Platelet Count 107 K/mm3 (142-424); Red Blood Count 4.14 M/mm3 (4.20-5.40); Red Cell Distribution Width 14.6 % (11.5-17.5); White Blood Count 4.8 K/mm3 (4.8-10.8)
[2023-02-13 09:07] LABS: Alanine Aminotransferase 18 U/L (12-78); Alkaline Phosphatase 207 U/L (38-126); Anion Gap 17.2 mEq/L (5-15); Aspartate Amino Transferase 38 U/L (14-36); Bilirubin,Total 0.2 mg/dl (0.2-1.3); Blood Urea Nitrogen 15 mg/dl (7-17); Calcium 9.2 mg/dl (8.4-10.2); Carbon Dioxide 25 mmol/L (22.0-30.0); Chloride 104 mmol/L (98-107); Estimated Glomerular Filt Rate 51 ml/min (>60); GFR (African American) 62 ML/MIN (>60); Globulin 3.9 g/dL (1.3-3.2); Glucose 204 mg/dl (74-100); Potassium 5.2 mmoL/L (3.5-5.1); Sodium 141 mmol/L (136-145); Total Protein,Serum 7.9 g/dl (6.3-8.2)
[2023-02-13 09:38] LABS: Thyroid Stimulating Hormone 0.03 uIU/mL (0.465-4.68)
[2023-02-20 08:31] LABS: Fibrosis Score 0.41; Fibrosis Stage F1-F2
[2023-02-20 08:32] LABS: NASH Score 0.55; Steatosis Grade S2-S3; Steatosis Score 0.97
[2023-02-20 08:33] LABS: NASH Grade N2 MODERATE NASH
[2023-02-20 08:34] LABS: Alpha 2-Macroglobulins, Qn 207; Haptoglobin 87
[2023-02-20 08:35] LABS: Apolipoprotein A-1 97; Bilirubin, Total 0.1
[2023-02-20 08:36] LABS: ALT (SGPT) P5P 19; AST (SGOT) P5P 33; GGT 526
[2023-02-20 08:37] LABS: Cholesterol, Total 163; Triglycerides 387
[2023-02-20 08:38] LABS: Glucose 215
== END ==
PROVIDERS: Nurse Practitioner Family; PCP Internal Medicine Adolescent Medicine; Visit Provider Internal Medicine Gastroenterology
DX: R10.84 Generalized abdominal pain (principal); K75.81 Nonalcoholic steatohepatitis (NASH); R14.0 Abdominal distension (gaseous); R94.5 Abnormal results of liver function studies; Z79.899 Other long term (current) drug therapy
CPT/HCPCS: 80053; 84443; 85025

== ENCOUNTER → 2023-03-04 16:15 | Outpatient (CLI) | payer MEDICARE, MEDICAID, SELFPAY ==
--- NOTE | 2023-03-04 16:19 | XR_ITS ---
PROCEDURE INFORMATION: Exam: XR Abdomen Exam date and time: 03/04/2023 4:37 PM Age: 57 years old Clinical indication: Constipation; Additional info: Chronic constipation. Patient has colostomy bag TECHNIQUE: Imaging protocol: Radiologic exam of the abdomen. Views: Frontal supine view of the abdomen. 1 View. COMPARISON: CT ABDOMEN PELVIS WO CON 12/08/2021 9:55 PM FINDINGS: Tubes, catheters and devices: Stimulator device overlies the right abdomen. Gastrointestinal tract: Right lower quadrant ostomy . Minimal fecal material seen in the region of the rectum Bones/joints: Unremarkable. IMPRESSION: Right lower quadrant ostomy . Minimal fecal material seen in the region of the rectum
== END ==
PROVIDERS: PCP Nurse Practitioner Family; Visit Provider Nurse Practitioner Family
DX: K59.09 Other constipation (principal)
CPT/HCPCS: 74018

== ENCOUNTER → 2023-03-19 13:23 | Outpatient (CLI) | payer MEDICARE, MEDICAID, SELFPAY ==
--- NOTE | 2023-03-19 13:27 | CT_ITS ---
FINAL REPORT TECHNIQUE: Axial CT images of the chest were obtained without contrast. Low-dose protocol was utilized. This study was performed with techniques to keep radiation doses as low as reasonably achievable (ALARA). Individualized dose reduction techniques using automated exposure control or adjustment of mA and/or kV according to the patient's size were employed. CLINICAL HISTORY: H/O TOBACCO USE smokes 1 pk per day x 44 yrs copd, cad COMPARISON: None FINDINGS: CT CHEST WITHOUT, LOW DOSE SCREENING CT Di Vol: 2.90 mGy DLP: 108.64 mGy*cm There is no axillary, mediastinal, or hilar adenopathy. The heart size is normal. There is no pleural or pericardial effusion. The lung windows show a 2 mm nodule near the left major fissure seen on image 54. There is a 5 mm right middle lobe nodule seen on image 59. There are multiple calcified granulomas in the right upper lobe. Limited images of the upper abdomen demonstrate the liver has a somewhat irregular contour with an enlarged left lobe. This may represent cirrhosis. There is a small amount of ascites present. The spleen is partially imaged but probably enlarged. IMPRESSION: Bilateral pulmonary nodules measuring up to 5 mm. LR Category 2S: 12 month follow-up low-dose chest CT is recommended. Modifier S: Probable cirrhosis with portal hypertension and small ascites. Reviewed, Interpreted and Dictated by Jonah Hill III, MD Transcribed by Valery Hester Authenticated and [facility] [place] [place]
== END ==
PROVIDERS: PCP Nurse Practitioner Family; Visit Provider Nurse Practitioner Family
DX: Z87.891 Personal history of nicotine dependence (principal); Z12.2 Encounter for screening for malignant neoplasm of respiratory organs
CPT/HCPCS: 71271

== ENCOUNTER → 2023-06-06 11:10 | Outpatient (CLI) | payer MEDICARE, MEDICAID, SELFPAY ==
--- NOTE | 2023-06-06 11:19 | XR_ITS ---
FINAL REPORT CLINICAL HISTORY: CHECK PD STENT,ABD PAIN, IBS, COLOSTOMY BAG COMPARISON: 03/04/2023 FINDINGS: ABDOMEN SINGLE VIEW There is a nonspecific, nonobstructive bowel gas pattern. No bowel dilation is identified. No abnormal calcification is seen. Pelvic stimulator is present. There is an ostomy in right hemipelvis. IMPRESSION: No acute process. Reviewed, Interpreted and Dictated by Jr Valencia MD Transcribed by Sahara Franco Authenticated and [facility]
== END ==
PROVIDERS: PCP Nurse Practitioner Family; Visit Provider Nurse Practitioner Family
DX: G90.9 Disorder of the autonomic nervous system, unspecified (principal); R14.0 Abdominal distension (gaseous); R10.12 Left upper quadrant pain; K31.84 Gastroparesis; K58.1 Irritable bowel syndrome with constipation; K30 Functional dyspepsia; K75.81 Nonalcoholic steatohepatitis (NASH)
CPT/HCPCS: 74018

== ENCOUNTER 2023-11-15 11:15 | Outpatient (CLI) | payer MEDICARE, MEDICAID, SELFPAY ==
--- NOTE | 2023-11-15 11:21 | US_ITS ---
FINAL REPORT TECHNIQUE: Multiple transverse and longitudinal images CLINICAL HISTORY: CIRRHOSIS COMPARISON: 03/01/2022 FINDINGS: The gallbladder shows no wall thickening, distention or stone disease. No biliary ductal dilatation is appreciated. No fluid collections are seen. Hyperechogenicity in the liver is again noted and related to fatty infiltration. There are no obvious findings of portal hypertension. Limited portions of the right kidney are unremarkable. IMPRESSION: 1. No evidence of cholelithiasis 2. No evidence of biliary obstruction 3. Fatty changes in the liver. Reviewed, Interpreted and Dictated by Tashia Fall MD Transcribed by Zoie Hearn Authenticated and . [facility]
--- NOTE | 2023-11-15 11:59 | XR_ITS ---
FINAL REPORT CLINICAL HISTORY: THORACIC RADICULOPATHY,NEUROPATHIC PAIN,HEPATOSPLENOMEGALY COMPARISON: None FINDINGS: Three views of the thoracic spine were obtained. There is no fracture present. There is no malalignment. There are no significant degenerative changes. IMPRESSION: No acute process. Reviewed, Interpreted and Dictated by Tashia Fall MD Transcribed by Valery Hester Authenticated and [facility]
[2023-11-15 12:48] LABS: Ammonia < 9 umol/L (9-30)
[2023-11-15 12:51] LABS: Basophils # 0.1 K/mm3 (0-0.2); Basophils % 1.4 % (0.1-2.0); Eosinophils # 0.3 K/mm3 (0.0-0.4); Hematocrit 36.6 % (37.0-47.0); Hemoglobin 11.7 g/dL (12.2-16.2); Lymphocytes # 2.8 K/mm3 (0.7-4.5); Lymphocytes % 42.7 % (10-50); Mean Corpuscular HGB Conc 31.9 g/dL (31.8-35.4); Mean Corpuscular Hemoglobin 27.2 pg (27.0-31.2); Mean Corpuscular Volume 85.3 fl (81-99); Mean Platelet Volume 7.9 fl (7.4-10.4); Monocytes # 0.4 K/mm3 (0.1-1.0); Monocytes % 5.5 % (1.7-9.3); Neutrophils % 46.4 % (37.0-80.0); Platelet Count 106 K/mm3 (142-424); Red Cell Distribution Width 15.7 % (11.5-17.5); White Blood Count 6.4 K/mm3 (4.8-10.8)
[2023-11-15 12:58] LABS: Alanine Aminotransferase 23 U/L (12-78); Albumin Level 4.2 g/dl (3.5-5.0); Albumin/Globulin Ratio 1.3 (1.1-1.8); Alkaline Phosphatase 107 U/L (38-126); Anion Gap 13.8 mEq/L (5-15); Aspartate Amino Transferase 35 U/L (14-36); Bilirubin,Total 0.5 mg/dl (0.2-1.3); Blood Urea Nitrogen 16 mg/dl (7-17); Calcium 9.5 mg/dl (8.4-10.2); Carbon Dioxide 29 mmol/L (22.0-30.0); Chloride 102 mmol/L (98-107); Estimated Glomerular Filt Rate 42 ml/min (>60); GFR (African American) 51 ML/MIN (>60); Globulin 3.3 g/dL (1.3-3.2); Glucose 117 mg/dl (74-100); Potassium 3.8 mmoL/L (3.5-5.1); Sodium 141 mmol/L (136-145); Total Protein,Serum 7.5 g/dl (6.3-8.2)
[2023-11-15 13:10] LABS: INR 1.18 (0.9-1.1); Prothrombin Time 12.6 seconds (10.1-12.5)
[2023-11-15 13:40] LABS: Iron 49 ug/dL (37-170)
[2023-11-15 13:49] LABS: Total Iron Binding Capacity 397 ug/dL (265-497)
[2023-11-15 14:16] LABS: Ferritin 6.55 ng/ml (11.1-264)
[2023-11-16 08:17] LABS: AFP, Tumor Marker 2.5 ng/mL (0.0-9.2)
== END 2023-11-15 23:59 | disposition home or self-care (01) ==
LOC: RAD 11:16
PROVIDERS: PCP Nurse Practitioner Family; Visit Provider Nurse Practitioner Family
DX: K75.81 Nonalcoholic steatohepatitis (NASH); K74.60 Unspecified cirrhosis of liver; K65.1 Peritoneal abscess; T81.43XA Infection following a procedure, organ and space surgical site, initial encounter; L30.9 Dermatitis, unspecified; M54.6 Pain in thoracic spine; R79.1 Abnormal coagulation profile; E61.1 Iron deficiency
CPT/HCPCS: 36415; 72072; 76705; 80053; 82105; 82140; 82728; 83540; 83550; 85025; 85610

== ENCOUNTER 2024-01-06 16:54 | Outpatient (CLI) | payer MEDICARE, MEDICAID, SELFPAY ==
[2024-01-06 17:16] LABS: Basophils % 0.9 % (0.1-2.0); Eosinophils # 0.2 K/mm3 (0.0-0.4); Eosinophils % 4.6 % (0.1-12.0); Hemoglobin 10.7 g/dL (12.2-16.2); Lymphocytes # 1.5 K/mm3 (0.7-4.5); Lymphocytes % 36.1 % (10-50); Mean Corpuscular HGB Conc 38.4 g/dL (31.8-35.4); Mean Corpuscular Hemoglobin 31.7 pg (27.0-31.2); Mean Corpuscular Volume 82.5 fl (81-99); Monocytes # 0.2 K/mm3 (0.1-1.0); Monocytes % 5.6 % (1.7-9.3); Neutrophils # 2.2 K/mm3 (1.8-7.8); Neutrophils % 52.8 % (37.0-80.0); Platelet Count 57 K/mm3 (142-424); Red Blood Count 3.39 M/mm3 (4.20-5.40); Red Cell Distribution Width 17.1 % (11.5-17.5); White Blood Count 4.1 K/mm3 (4.8-10.8)
[2024-01-06 17:38] LABS: Alanine Aminotransferase 19 U/L (12-78); Albumin Level 3.7 g/dl (3.5-5.0); Albumin/Globulin Ratio 1.2 (1.1-1.8); Alkaline Phosphatase 121 U/L (38-126); Anion Gap 9.6 mEq/L (5-15); Aspartate Amino Transferase 31 U/L (14-36); Bilirubin,Total 0.3 mg/dl (0.2-1.3); Blood Urea Nitrogen 14 mg/dl (7-17); Calcium 9.1 mg/dl (8.4-10.2); Carbon Dioxide 23 mmol/L (22.0-30.0); Chloride 111 mmol/L (98-107); Estimated Glomerular Filt Rate 57 ml/min (>60); GFR (African American) 69 ML/MIN (>60); Glucose 286 mg/dl (74-100); Magnesium 1.6 mg/dl (1.6-2.3); Potassium 4.6 mmoL/L (3.5-5.1); Sodium 139 mmol/L (136-145); Total Protein,Serum 6.7 g/dl (6.3-8.2)
[2024-01-06 17:42] LABS: Hemoglobin A1C 7.3 % (4.0-6.0)
[2024-01-06 18:09] LABS: Thyroid Stimulating Hormone < 0.02 uIU/mL (0.465-4.68)
== END 2024-01-06 23:59 | disposition home or self-care (01) ==
LOC: LAB 16:56
PROVIDERS: PCP Nurse Practitioner Family; Visit Provider Nurse Practitioner Family
DX: K74.60 Unspecified cirrhosis of liver (principal); E11.8 Type 2 diabetes mellitus with unspecified complications
CPT/HCPCS: 36415; 80050; 80053; 83036; 83735; 84443; 85025; 86431

== ENCOUNTER 2024-02-06 15:17 | Outpatient (CLI) | payer MEDICARE, MEDICAID, SELFPAY ==
[2024-02-06 16:05] LABS: INR 1.07 (0.9-1.1); Prothrombin Time 11.9 seconds (10.1-12.5)
[2024-02-06 16:25] LABS: Alanine Aminotransferase 28 U/L (12-78); Aspartate Amino Transferase 46 U/L (14-36); Bilirubin,Total 0.4 mg/dl (0.2-1.3); Blood Urea Nitrogen 15 mg/dl (7-17); Calcium 9.1 mg/dl (8.4-10.2); Carbon Dioxide 25 mmol/L (22.0-30.0); Chloride 112 mmol/L (98-107); Estimated Glomerular Filt Rate 51 ml/min (>60); GFR (African American) 62 ML/MIN (>60); Glucose 266 mg/dl (74-100); Sodium 143 mmol/L (136-145); Total Protein,Serum 7.4 g/dl (6.3-8.2)
[2024-02-06 16:26] LABS: Albumin Level 4.1 g/dl (3.5-5.0); Albumin/Globulin Ratio 1.2 (1.1-1.8); Alkaline Phosphatase 128 U/L (38-126); Globulin 3.3 g/dL (1.3-3.2); Hematocrit 36.1 % (37.0-47.0); Hemoglobin 11.2 g/dL (12.2-16.2); Mean Corpuscular HGB Conc 31.1 g/dL (31.8-35.4); Mean Corpuscular Hemoglobin 26.2 pg (27.0-31.2); Mean Corpuscular Volume 84.2 fl (81-99); Platelet Count 70 K/mm3 (142-424); Red Blood Count 4.28 M/mm3 (4.20-5.40); Red Cell Distribution Width 17.6 % (11.5-17.5); White Blood Count 4.1 K/mm3 (4.8-10.8)
[2024-02-06 17:04] LABS: Iron 43 ug/dL (37-170); Total Iron Binding Capacity 424 ug/dL (265-497)
[2024-02-06 17:08] LABS: Vitamin B12 863 pg/mL (239-931)
[2024-02-06 17:29] LABS: Ferritin 6.84 ng/ml (11.1-264)
[2024-02-08 10:11] LABS: AFP, Tumor Marker 3.1 ng/mL (0.0-9.2)
[2024-02-08 15:29] LABS: Peripheral Smear Review Scanned Result
== END 2024-02-06 23:59 | disposition home or self-care (01) ==
LOC: LAB 15:21
PROVIDERS: Internal Medicine Medical Oncology; PCP Nurse Practitioner Family; Visit Provider Internal Medicine Gastroenterology
DX: K75.81 Nonalcoholic steatohepatitis (NASH) (principal); K74.60 Unspecified cirrhosis of liver; D64.9 Anemia, unspecified; Z68.29 Body mass index [BMI] 29.0-29.9, adult; E66.3 Overweight; D51.9 Vitamin B12 deficiency anemia, unspecified
CPT/HCPCS: 36415; 80053; 82105; 82607; 82728; 83540; 83550; 85014; 85018; 85044; 85048; 85049; 85610

== ENCOUNTER 2024-02-21 17:14 | Outpatient (CLI) | payer MEDICARE, MEDICAID, SELFPAY ==
[2024-02-21 17:35] LABS: Basophils # 0.1 K/mm3 (0-0.2); Basophils % 1.5 % (0.1-2.0); Eosinophils # 0.3 K/mm3 (0.0-0.4); Eosinophils % 5.5 % (0.1-12.0); Hematocrit 34.1 % (37.0-47.0); Hemoglobin 10.4 g/dL (12.2-16.2); Lymphocytes # 2.2 K/mm3 (0.7-4.5); Lymphocytes % 43.4 % (10-50); Mean Corpuscular HGB Conc 30.5 g/dL (31.8-35.4); Mean Platelet Volume 10.3 fl (7.4-10.4); Monocytes # 0.2 K/mm3 (0.1-1.0); Monocytes % 4.9 % (1.7-9.3); Neutrophils # 2.2 K/mm3 (1.8-7.8); Neutrophils % 44.6 % (37.0-80.0); Platelet Count 82 K/mm3 (142-424); Red Blood Count 4.16 M/mm3 (4.20-5.40); Red Cell Distribution Width 17.7 % (11.5-17.5)
[2024-02-21 18:13] LABS: Ammonia < 9 umol/L (9-30)
[2024-02-21 19:09] LABS: Albumin Level 4.1 g/dl (3.5-5.0); Chloride 112 mmol/L (98-107); Sodium 139 mmol/L (136-145)
[2024-02-21 19:10] LABS: Potassium 4.2 mmoL/L (3.5-5.1)
[2024-02-21 19:12] LABS: Alanine Aminotransferase 26 U/L (12-78); Albumin/Globulin Ratio 1.4 (1.1-1.8); Alkaline Phosphatase 100 U/L (38-126); Anion Gap 10.2 mEq/L (5-15); Aspartate Amino Transferase 43 U/L (14-36); Bilirubin,Total 0.5 mg/dl (0.2-1.3); Blood Urea Nitrogen 17 mg/dl (7-17); Calcium 8.7 mg/dl (8.4-10.2); Carbon Dioxide 21 mmol/L (22.0-30.0); Estimated Glomerular Filt Rate 51 ml/min (>60); GFR (African American) 62 ML/MIN (>60); Glucose 199 mg/dl (74-100); Total Protein,Serum 7.1 g/dl (6.3-8.2)
== END 2024-02-21 23:59 | disposition home or self-care (01) ==
LOC: LAB 17:17
PROVIDERS: PCP Nurse Practitioner Family; Visit Provider Nurse Practitioner Family
DX: R41.0 Disorientation, unspecified (principal); K74.60 Unspecified cirrhosis of liver
CPT/HCPCS: 36415; 80053; 82140; 85025

== ENCOUNTER 2024-02-26 09:08 | Outpatient (CLI) | payer MEDICARE, MEDICAID, SELFPAY ==
--- NOTE | 2024-02-26 09:12 | US_ITS ---
FINAL REPORT CLINICAL HISTORY: [place] COMPARISON: 11/15/2023 FINDINGS: Sonographic images of the right upper quadrant were obtained. The pancreas is partially obscured. There is increased echogenicity in the liver consistent with fatty infiltration. The gallbladder appears normal without evidence of gallstones.There is no evidence of biliary ductal dilatation.The common duct measures 6 mm, upper limit of normal. Limited images of the right kidney are unremarkable. IMPRESSION: Common bile duct measures at the upper limits of normal, 6 mm. Fatty infiltration of the liver. Reviewed, Interpreted and Dictated by Jonah Hill III, MD Transcribed by Nina Hoyt Authenticated and [facility]
== END 2024-02-26 23:59 | disposition home or self-care (01) ==
LOC: RAD 09:09
PROVIDERS: PCP Nurse Practitioner Family; Visit Provider Internal Medicine Gastroenterology
DX: K75.81 Nonalcoholic steatohepatitis (NASH) (principal)
CPT/HCPCS: 76705

== ENCOUNTER 2024-04-30 10:04 | Outpatient (CLI) | payer MEDICARE, MEDICAID, SELFPAY ==
[2024-04-30 11:06] LABS: Alanine Aminotransferase 16 U/L (12-78); Albumin/Globulin Ratio 1.5 (1.1-1.8); Alkaline Phosphatase 136 U/L (38-126); Anion Gap 10.3 mEq/L (5-15); Aspartate Amino Transferase 26 U/L (14-36); Bilirubin,Total 0.5 mg/dl (0.2-1.3); Blood Urea Nitrogen 18 mg/dl (7-17); Calcium 8.7 mg/dl (8.4-10.2); Carbon Dioxide 24 mmol/L (22.0-30.0); Chloride 108 mmol/L (98-107); Estimated Glomerular Filt Rate 51 ml/min (>60); GFR (African American) 61 ML/MIN (>60); Globulin 2.6 g/dL (1.3-3.2); Glucose 264 mg/dl (74-100); Magnesium 1.9 mg/dl (1.6-2.3); Potassium 4.3 mmoL/L (3.5-5.1); Sodium 138 mmol/L (136-145); Total Protein,Serum 6.6 g/dl (6.3-8.2)
[2024-04-30 11:07] LABS: Hemoglobin A1C 9.7 % (4.0-6.0)
[2024-04-30 11:36] LABS: Thyroid Stimulating Hormone 0.31 uIU/mL (0.465-4.68)
== END 2024-04-30 23:59 | disposition home or self-care (01) ==
LOC: LAB 10:05
PROVIDERS: PCP Nurse Practitioner Family; Visit Provider Nurse Practitioner Family
DX: E11.8 Type 2 diabetes mellitus with unspecified complications (principal); E03.9 Hypothyroidism, unspecified; K74.60 Unspecified cirrhosis of liver; E83.42 Hypomagnesemia
CPT/HCPCS: 36415; 80053; 83036; 83735; 84443

== ENCOUNTER 2024-08-21 18:24 | Emergency (ER) | payer MEDICARE, MEDICAID, SELFPAY ==
[2024-08-21] VITALS (8 sets, daily range): BP systolic 129–159; BP diastolic 52–71; PULSE 93–103; RESP 14–19; TEMP 36.8–37.3; O2SAT 90–100; BMI 29.2
--- NOTE | 2024-08-21 18:24 | ECG_ITS ---
APPROVED REPORT Exam: Resting ECG HR:95 bpm ECG Measurements Heart Rate 95 AXES DC 120 P 75 QRSd 87 QRS 27 QT 357 T 48 QTc 410 Conclusion Sinus rhythm Inferior ST depressions with no reciprocal elevations Electronically signed by : MARGI ALVARADO, 08/22/2024 00:03:09
--- NOTE | 2024-08-21 18:28 | PC.NURSE ---
Dr Nj at bedside
--- NOTE | 2024-08-21 18:44 | ED_ITS ---
Discharge Plan Disposition Patient Disposition: Home, Self-Care Prescriptions Prescriptions: New doxycycline hyclate 100 mg capsule 100 mg PO BID 5 Days Qty: 10 0RF prednisone 20 mg tablet 40 mg PO DAILY 5 Days Qty: 10 0RF nicotine 14 mg/24 hr patch 24 hour 1 patch transdermal DAILY Qty: 28 0RF No Action albuterol sulfate [Ventolin HFA] 90 mcg/actuation HFA aerosol inhaler 2 puff INHALATION Q4-6H PRN (Reason: breathing) venlafaxine [Effexor XR] 150 mg capsule,extended release 24hr 150 mg PO DAILY lamotrigine 100 mg tablet 100 mg PO BID buspirone 10 mg tablet 10 mg PO BID diltiazem HCl 120 mg capsule,extended release 24hr 120 mg PO DAILY Patient Comments: TAKE ONE CAPSULE BY MOUTH EVERY DAY hydroxyzine HCl 25 mg tablet 25 mg PO TID PRN (Reason: Itching) alprazolam 1 mg tablet 1 mg PO TID PRN (Reason: mood) Patient Comments: TAKE ONE TABLET BY MOUTH THREE TIMES DAILY MAY CAUSE DROWSINESS Jardiance 10 mg tablet 10 mg PO pantoprazole 40 mg tablet,delayed release (DR/EC) 40 mg PO DAILY cyanocobalamin (vitamin B-12) [Vitamin B-12] 1,000 mcg tablet extended release 1,000 mcg PO Patient Comments: TAKE ONE TABLET BY MOUTH EVERY DAY levothyroxine 175 mcg tablet 175 mcg PO cholecalciferol (vitamin D3) 50 mcg (2,000 unit) tablet 50 mcg PO Patient Comments: TAKE ONE TABLET BY MOUTH EVERY DAY (DME) lancets [TRUEplus Lancets] 30 gauge misc See Rx Instructions .ROUTE .MEDSUPPLY Qty: 100 Patient Comments: USE TO test blood sugar TWICE DAILY but UP TO 4 times a DAY NEEDED Rx Instructions: As directed (DME) Easy Touch Test Strip Strip See Rx Instructions .ROUTE .MEDSUPPLY Qty: 10 Patient Comments: USE TO test blood sugar TWICE DAILY but UP TO 4 times a DAY NEEDED Rx Instructions: As directed (DME) blood-glucose meter [Easy Touch Glucose Monitor] Misc See Rx Instructions .ROUTE .MEDSUPPLY Qty: 1 Patient Comments: USE TO test blood sugar TWICE DAILY but UP TO 4 times a DAY NEEDED Rx Instructions: As directed potassium chloride 20 mEq tablet,ER particles/crystals 20 meq PO BID Linzess 290 mcg capsule 290 mcg PO DAILY furosemide 20 mg tablet 20 mg PO DAILY PRN melatonin 10 mg capsule 10 mg PO HS PRN benzonatate 200 mg capsule 200 mg PO TID PRN (Reason: cough) 10 Days Qty: 30 0RF amoxicillin-pot clavulanate 875-125 mg tablet 1 tab PO BID 10 Days Qty: 20 0RF aspirin 81 mg tablet,delayed release (DR/EC) 81 mg PO DAILY Qty: 30 5RF propranolol 160 mg capsule,extended release 24 hr See Rx Instructions .ROUTE .COMPLEX Qty: 90 3RF Dose Instruction: TAKE ONE CAPSULE BY MOUTH EVERY DAY AT BEDTIME Rx Instructions: TAKE ONE CAPSULE BY MOUTH EVERY DAY AT BEDTIME clopidogrel 75 MG tablet 75 mg PO DAILY magnesium oxide 400 mg (241.3 mg magnesium) tablet 800 mg PO BID ondansetron 4 MG tablet,disintegrating 4 mg PO TIDP PRN (Reason: Nausea And Vomiting) Qty: 10 0RF Referrals Follow up/Referrals: Provider,Referral, MD [Referring] - See instructions Activity Restrictions/Add. Instructions Additional Instructions/Restrictions: Call your family doctor to establish care for this visit to the emergency department and schedule follow-up within 48 hours to ensure improvement. If you have any worsening of your condition or any other concerning signs or symptoms, return to the emergency department or your primary care doctor for further evaluation. Prednisone each morning for the next 5 days. Doxycycline twice daily for the next 5 days Clinical Impressions Clinical Impression: Acute exacerbation of chronic obstructive pulmonary disease Print Language Print Language: Monegasque Discharge ED Provider: David Nj HPI General Chief Complaint: Chest Pain Stated Complaint: chest pain Time Seen by Provider: 08/21/24 18:25 History of Present Illness HPI narrative: Please note that above description of symptoms, in this electronic medical record under categorization of recalled from ER triage doctor by RN are reflective of an initial nursing assessment, however, is not reflective of my full history and physical exam that was personally taken and clarified. Consequentially, this preceding description of symptoms, which may include the patient's categorized chief complaint in the EMR, do not reflect my personal clinical impression, and the ultimate description of history of present illness and patient stated complaints should be deferred to this section of the note. Unless stated otherwise or congruent with this section of the note, additional signs, symptoms, or incongruence should be interpreted as inaccurate with my clinical impression. Related Data Home Medications ?Medication ?Instructions ?Recorded ?Confirmed albuterol sulfate 90 mcg/actuation 2 puff inhalation Q4-6H PRN 10/16/17 02/06/24 aerosol inhaler (Ventolin HFA) breathing lamotrigine 100 mg tablet 100 mg PO BID bipolar 10/16/17 02/06/24 venlafaxine 150 mg 150 mg PO DAILY nerve pain 10/16/17 02/06/24 capsule,extended release 24 hr (Effexor XR) buspirone 10 mg tablet 10 mg PO BID Depression 10/17/17 02/06/24 clopidogrel 75 mg tablet 75 mg PO DAILY * 05/19/18 02/06/24 alprazolam 1 mg tablet 1 mg PO TID PRN mood 07/02/19 02/06/24 hydroxyzine HCl 25 mg tablet 25 mg PO TID PRN Itching 07/02/19 02/06/24 diltiazem HCl 120 mg 120 mg PO DAILY BLOOD PRESSURE 08/10/19 02/06/24 capsule,extended release 24 hr blood sugar diagnostic (Easy Touch #10 ea 01/10/21 02/06/24 Test Strip) blood-glucose meter (Easy Touch #1 ea 01/10/21 02/06/24 Glucose Monitor) cholecalciferol (vitamin D3) 50 50 mcg PO 01/10/21 02/06/24 mcg (2,000 unit) tablet cyanocobalamin (vitamin B-12) 1,000 mcg PO 01/10/21 02/06/24 1,000 mcg tablet,extended release (Vitamin B-12 ER) empagliflozin 10 mg tablet 10 mg PO 01/10/21 02/06/24 (Jardiance) lancets 30 gauge (TRUEplus Lancets) #100 ea 01/10/21 02/06/24 levothyroxine 175 mcg tablet 175 mcg PO 01/10/21 02/06/24 pantoprazole 40 mg tablet,delayed 40 mg PO DAILY 01/10/21 02/06/24 release furosemide 20 mg tablet 20 mg PO DAILY PRN 07/05/22 02/06/24 linaclotide 290 mcg capsule 290 mcg PO DAILY 07/05/22 02/06/24 (Linzess) magnesium oxide 400 mg (241.3 mg 800 mg PO BID Supplement 07/05/22 02/06/24 magnesium) tablet melatonin 10 mg capsule 10 mg PO HS PRN 07/05/22 02/06/24 potassium chloride 20 mEq 20 meq PO BID 07/05/22 02/06/24 tablet,extended release(part/cryst) Previous Rx's ?Medication ?Instructions ?Recorded aspirin 81 mg tablet,delayed 81 mg PO DAILY heart health #30 11/25/19 release tabs propranolol 160 mg capsule,24 See Rx Instructions .Route 07/21/20 hr,extended release .COMPLEX #90 caps ondansetron 4 mg disintegrating 4 mg PO TIDP PRN Nausea And 03/16/21 tablet Vomiting #10 tabs amoxicillin 875 mg-potassium 1 tab PO BID 10 days #20 tabs 07/05/22 clavulanate 125 mg tablet benzonatate 200 mg capsule 200 mg PO TID PRN cough 10 days 07/05/22 #30 caps doxycycline hyclate 100 mg capsule 100 mg PO BID 5 days #10 caps 08/21/24 nicotine 14 mg/24 hr daily 1 patch transdermal DAILY #28 ea 08/21/24 transdermal patch prednisone 20 mg tablet 40 mg (2 x 20 mg) PO DAILY 5 days 08/21/24 #10 tabs Allergies Allergy/AdvReac Type Severity Reaction Status Date / Time aripiprazole (From ABILIFY) Allergy Unknown Verified 02/06/24 14:47 citalopram (From CELEXA) Allergy Unknown UNKNOWN Verified 02/06/24 14:47 hydrocodone (From LORTAB) Allergy Unknown Verified 02/06/24 14:47 losartan Allergy Unknown Verified 02/06/24 14:47 olanzapine (From ZYPREXA) Allergy Unknown Verified 02/06/24 14:47 quetiapine (From SEROQUEL) Allergy Unknown Verified 02/06/24 14:47 Sulfa (Sulfonamide Allergy Unknown Verified 02/06/24 14:47 Antibiotics) (SULFA (SULFONAMIDE ANTIBIOTICS)) acetaminophen (From [place]) Allergy Verified 02/06/24 14:47 tramadol Allergy Verified 02/06/24 14:47 [facility] Disclaimer: The information contained in this section may have been updated after the patient was seen, as this information can be updated by other users. Social History Smoking Status: Current every day smoker tobacco type: cigarettes packs per day: 1 second hand exposure: No alcohol intake: never substance use type: denies use current occupational status: disabled Travel in the last 8 weeks: None household members: none housing: house current occupational exposures/hazards: No caffeine: Yes Have you lived/traveled outside [place] in past 30 days?: No Contact w/someone who lives/traveled outside [place] past 30 days?: No Exposure to someone with infectious disease in past 14 days?: No Do you have a fever (greater than 100.4 F or 38 C)?: No Have you tested positive for COVID-19: No Exposed to someone with COVID-19 in past 14 days?: No Do you have a sore throat?: No Do you have a cough?: No Do you have any weakness?: No Do you have any diarrhea?: No Are you experiencing any unusual bleeding?: No Do you have any muscle aches/pain?: No Do you have any abdominal pain?: No Are you experiencing loss of taste or smell?: No Other Medical History Have you received the Flu Vaccine for this season: No Have you received the Pneumonia Vaccine: No ROS Obtained: Yes All systems reviewed & no additional complaints except as documented Physical Exam General General appearance: alert and in no apparent distress Neck Neck exam: Present trachea midline Chest Chest inspection: Present normal inspection and symmetric chest wall rise Respiratory Respiratory exam: Present wheezes and prolonged expiratory phase; Absent respiratory distress, stridor or accessory muscle use Cardiovascular Cardiovascular exam: Present regular rate, normal rhythm and other (Pulses equal and symmetric in upper and lower extremities) Extremities Exam Extremities exam: Present edema Neurological Exam Neurological exam: Present alert, oriented X3 and CN II-XII intact Skin Skin exam: Present warm and dry; Absent cyanosis, diaphoresis or pallor HEART Score HEART Score HEART Score assessment performed?: Yes History (anamnesis): Slightly suspicious ECG: Normal Age: 45-65 years Risk factors: 3 or more risk factors Troponin: </= normal limit HEART Score: 3 Procedures Smoking Cessation Time Spent Discussing Smoking Cessation w/Patient (min): 10 Patient Acknowledges Need for Cessation: Yes Critical Care Critical Care Time Critical Care Time: No Medical Decision Making Medical Records Medical records reviewed: Yes I reviewed the patient's medical records. Rob Inquiry Pt receiving controlled substance: No Rob was queried for this patient: No Vital Signs Vital Signs: 08/21/24 18:47 08/21/24 18:52 08/21/24 19:02 Temperature 98.2 F Temperature Source Oral Pulse Rate 98 H 99 H Pulse Rate [Left Radial] 99 H Respiratory Rate 14 19 Blood Pressure Blood Pressure [Right Arm] 159/65 H Blood Pressure Mean [Right Arm] 96 Blood Pressure Source [Right Arm] Automatic Cuff Blood Pressure Position [Right Arm] Sitting 02 Sat by Pulse Oximetry 100 95 Oxygen Delivery Method Room Air 08/21/24 20:57 08/21/24 21:00 08/21/24 21:30 Temperature Temperature Source Pulse Rate 103 H 93 H Pulse Rate [Left Radial] Respiratory Rate 18 17 16 Blood Pressure 147/52 H 129/53 L 153/63 H Blood Pressure [Right Arm] Blood Pressure Mean [Right Arm] Blood Pressure Source [Right Arm] Blood Pressure Position [Right Arm] 02 Sat by Pulse Oximetry 93 L 90 L Oxygen Delivery Method Room Air Room Air Room Air 08/21/24 22:01 Temperature Temperature Source Pulse Rate 99 H Pulse Rate [Left Radial] Respiratory Rate 18 Blood Pressure 155/71 H Blood Pressure [Right Arm] Blood Pressure Mean [Right Arm] Blood Pressure Source [Right Arm] Blood Pressure Position [Right Arm] 02 Sat by Pulse Oximetry 96 Oxygen Delivery Method Room Air Lab Data Labs: Lab Results 08/21/24 18:30: WBC 8.1, RBC 4.48, Hgb 9.0 L, Hct 32.8 L, MCV 73.2 L, MCH 20.1 L , MCHC 27.4 L, RDW 18.0 H, Plt Count 86 L, MPV 10.9 H, Neut % (Auto) 71.8, Lymph % (Auto) 18.6, [place] % (Auto) 5.1, Eos % (Auto) 2.7, Baso % (Auto) 1.1, Neut # (Auto) 5.8, Lymph # (Auto) 1.5, [place] # (Auto) 0.4, Eos # (Auto) 0.2, Baso # (Auto) 0.1, PT 12.1, INR 1.09, APTT 25.5, Sodium 137, Potassium 4.3, Chloride 101, Carbon Dioxide 25, Anion Gap 15.3 H, BUN 14, Creatinine 1.20 H, Estimated Creat Clear 52, Estimated GFR 46 L, Est GFR ( Amer) 55 L, Glucose 307 H, Calcium 9.5, Total Bilirubin 0.5, AST 35, ALT 21, Alkaline Phosphatase 110, Troponin I < 0.01, NT-Pro-B Natriuret Pep 213 H, Total Protein 8.1, Albumin 4.9, Globulin 3.2, Albumin/Globulin Ratio 1.5, HCV Ab SHOAL w/Rflx PCR Qn Negative, HIV Ag/Ab Combo Qual Negative 08/21/24 18:49: VBG pH 7.32, VBG pCO2 45.8, VBG pO2 50.6 H, VBG HCO3 22.8 L, VBG Total CO2 24.2, VBG O2 Saturation 84.7 H, VBG Base Excess -3.4 L, VBG Lactic Acid 2.8 H 08/21/24 18:30 08/21/24 18:30 Response Orders (Tests/Meds): ED MEDICATIONS Discontinued Medications Generic Name Dose Route Start Last Admin Trade Name Freq PRN Reason Stop Dose Admin Albuterol/Ipratropium 9 ml 08/21/24 18:47 08/21/24 19:25 Ipratropium/Albuterol 3 Ml Neb IH 08/21/24 18:48 9 ml ONCE ONE Administration Aspirin 324 mg 08/21/24 18:47 08/21/24 19:25 Aspirin 81mg Chewable Tablet PO 08/21/24 18:48 324 mg ONCE ONE Administration Azithromycin 500 mg 08/21/24 20:12 08/21/24 20:48 Azithromycin 250mg Tablet PO 08/21/24 20:13 500 mg ONCE ONE Administration Ceftriaxone Sodium 2 gm/ 100 mls @ 200 mls/hr 08/21/24 20:12 08/21/24 20:48 Sodium Chloride IV 08/21/24 20:41 200 mls/hr ONCE ONE Administration Lactated Ringer's 1,000 mls @ 999 mls/hr 08/21/24 20:12 08/21/24 20:48 Lactated Ringer's 1000 Ml Bag IV 08/21/24 21:12 999 mls/hr .Q1H1M ONE Administration Methylprednisolone Sodium Succinate 125 mg 08/21/24 18:47 08/21/24 19:26 Methylprednisolone Sod Succ 125mg Vial IV 08/21/24 18:48 125 mg ONCE ONE Administration ORDERS Category Date Time Status CXR 2 view (NOT portable) [XR chest 2V] Stat Exams 08/21/24 18:47 Completed Complete Blood Count Auto Diff Stat Lab 08/21/24 18:30 Completed Comprehensive Metabolic Panel Stat Lab 08/21/24 18:30 Completed HIV Combo Stat Lab 08/21/24 18:30 Completed Hepatitis C Ab Qual. W/ RFX Stat Lab 08/21/24 18:30 Completed NT Pro Brain Natriuretic Pep. Stat Lab 08/21/24 18:30 Completed PT INR [Prothrombin Time INR] Stat Lab 08/21/24 18:30 Completed PTT [Activated Partial Thrombo Time] Stat Lab 08/21/24 18:30 Completed Troponin I Q3H Lab 08/21/24 22:00 Ordered Troponin I Q3H Lab 08/22/24 01:00 Ordered Troponin I Stat Lab 08/21/24 18:30 Completed Venous Blood Gas Stat RT 08/21/24 18:49 Completed MDM Narrative Medical Decision Narrative: 59-year-old female history of hypertension, hyperlipidemia, diabetes, COPD still smoking and not on home oxygen, CKD 3, CAD status post stenting presenting with shortness of breath. Patient states that she has been feeling short of breath progressively for the last 3 days. Cough is productive of thick white sputum, no fevers or chills, no vomiting. Does not usually have a cough at baseline. Chest pain started today, it is exertional, does not radiate. No syncope, no other associated symptoms. History was obtained via conversation with patient. On arrival, patient hemodynamically stable, alert, oriented x4, appropriate, GCS 15, moving all extremities spontaneously, pupils equal and reactive to light. Full physical exam performed and significant for chronically ill-appearing female no acute distress. Expiratory wheezes heard throughout expiration. No inspiratory wheezes appreciated. Decreased breath sounds inferiorly anterior and posteriorly. Mild lower extremity edema 1+. Pulses equal and symmetric in upper and lower extremities. She is speaking in full sentences, neurologically intact. Cardiac exam with no murmurs gallops or rubs. Differential includes COPD exacerbation, bronchitis, pneumonia, microvascular coronary artery disease, CHF, ACS, CA, coronary artery dissection, pneumothorax, PE, dissection, pericarditis, myocarditis, pneumothorax, aortic aneurysm, pneumonia, bronchitis, among others. Patient was given DuoNebs, Solu-Medrol, aspirin for symptomatic management and correction of underlying abnormalities. Patient placed on continuous cardiac monitoring and continuous pulse ox with initial blood pressure 159/65, heart rate 90, saturation 100% on room air. Independent interpretation of EKG shows sinus rhythm [address] depressions in 2, 3, aVF as well as lateral leads with no reciprocal elevations, all less than 1 mm. Normal axis with good R wave progression in the precordial leads. MT 120, QRS 87, QTc 410. Workup independently interpreted and significant for nonactionable CBC. Chemistry with mild FLORENTIN. BNP elevated mildly at 213, nonactionable, troponin negative. Patient's VBG nonactionable, mildly elevated lactate, but I feel this is likely due to tube not being placed on ice. On independent interpretation of imaging, no acute cardiopulmonary airspace disease on chest x-ray. See radiology read for full review of final results. Heart score 3. On reevaluation, patient sleeping comfortably. Upon being woken up, breathing is much better on repeat evaluation. Given patient presentation, workup, history, this most likely represents uncomplicated COPD exacerbation. Because patient at baseline without signs or symptoms of clinical decompensation, deemed appropriate for discharge. Results were relayed to patient who voiced understanding and were agreeable to outpatient management and follow up. I discussed my clinical impression with patient and answered all questions. At this time, the evidence for any other entities in the differential is insufficient to warrant any further testing or ED observation. This was explained as well. Advisory was given that persistent or worsening symptoms require further evaluation. I confirmed the understanding of this discussion. Resident Care Provider disclaimer Much of this encounter note is an electronic obedience trainer spoken language to printed text. Electronic obedience trainer of the spoken language may permit errors. Although I have reviewed the note, some errors may still exist.
--- NOTE | 2024-08-21 18:47 | XR_ITS ---
PROCEDURE INFORMATION: Exam: XR Chest Exam date and time: 08/21/2024 6:49 PM Age: 59 years old Clinical indication: Cough; Additional info: Cough, productive, SOA TECHNIQUE: Imaging protocol: Radiologic exam of the chest. Views: 2 views. COMPARISON: CT LUNG SCREENING 03/19/2023 1:42 PM FINDINGS: Lungs: Unremarkable. No consolidation. Pleural spaces: Unremarkable. No pleural effusion. No pneumothorax. Heart/Mediastinum: Unremarkable. No cardiomegaly. Bones/joints: Unremarkable. IMPRESSION: No acute findings.
[2024-08-21 18:53] LABS: Basophils # 0.1 K/mm3 (0-0.2); Basophils % 1.1 % (0.1-2.0); Eosinophils # 0.2 K/mm3 (0.0-0.4); Eosinophils % 2.7 % (0.1-12.0); Hematocrit 32.8 % (37.0-47.0); Lymphocytes # 1.5 K/mm3 (0.7-4.5); Lymphocytes % 18.6 % (10-50); Mean Corpuscular HGB Conc 27.4 g/dL (31.8-35.4); Mean Corpuscular Hemoglobin 20.1 pg (27.0-31.2); Mean Corpuscular Volume 73.2 fl (81-99); Mean Platelet Volume 10.9 fl (7.4-10.4); Monocytes # 0.4 K/mm3 (0.1-1.0); Monocytes % 5.1 % (1.7-9.3); Neutrophils # 5.8 K/mm3 (1.8-7.8); Neutrophils % 71.8 % (37.0-80.0); Platelet Count 86 K/mm3 (142-424); Red Blood Count 4.48 M/mm3 (4.20-5.40); White Blood Count 8.1 K/mm3 (4.8-10.8)
[2024-08-21 18:54] LABS: VBG Base Excess -3.4 mmol/L (-2.4-2.3); VBG HCO3 22.8 mmol/L (23-30); VBG Oxygen Saturation 84.7 % (50-70); VBG PCO2 45.8 mmol/L (35-51); VBG PH 7.32 mmol/L (7.31-7.41); VBG PO2 50.6 mmol/L (28-40); VBG Total CO2 24.2 mmol/L (23-27)
[2024-08-21 18:55] LABS: Lactate Venous 2.8 mmol/L (0.4-2.0)
[2024-08-21 19:02] LABS: INR 1.09 (0.9-1.1); Prothrombin Time 12.1 seconds (10.1-12.5)
[2024-08-21 19:03] LABS: Alanine Aminotransferase 21 U/L (12-78); Albumin Level 4.9 g/dl (3.5-5.0); Albumin/Globulin Ratio 1.5 (1.1-1.8); Alkaline Phosphatase 110 U/L (38-126); Anion Gap 15.3 mEq/L (5-15); Aspartate Amino Transferase 35 U/L (14-36); Bilirubin,Total 0.5 mg/dl (0.2-1.3); Blood Urea Nitrogen 14 mg/dl (7-17); Calcium 9.5 mg/dl (8.4-10.2); Carbon Dioxide 25 mmol/L (22.0-30.0); Chloride 101 mmol/L (98-107); Creatinine Clearance Estimated 52 mL/min (50-200); Estimated Glomerular Filt Rate 46 ml/min (>60); GFR (African American) 55 ML/MIN (>60); Globulin 3.2 g/dL (1.3-3.2); Glucose 307 mg/dl (74-100); Potassium 4.3 mmoL/L (3.5-5.1); Sodium 137 mmol/L (136-145); Total Protein,Serum 8.1 g/dl (6.3-8.2)
[2024-08-21 19:08] LABS: Activated Partial Thrombo Time 25.5 seconds (22.8-30.6)
[2024-08-21 19:12] LABS: NT Pro Brain Natriuretic Pep. 213 pg/mL (0-125)
[2024-08-21 19:22] LABS: Troponin I < 0.01 ng/ml (0.00-0.034)
[2024-08-21] MEDS: ASPIRIN 81MG CHEWABLE TABLET 324 MG PO (19:25)
[2024-08-21] MEDS: IPRATROPIUM/ALBUTEROL 3 ML NEB 9 ML IH (19:25)
[2024-08-21] MEDS: METHYLPREDNISOLONE SOD SUCC 125MG VIAL 125 MG IV (19:26)
[2024-08-21 19:59] LABS: HIV Combo NEGATIVE (Negative)
[2024-08-21 20:07] LABS: Hepatitis C Ab Qual. W/ RFX NEGATIVE (Negative)
[2024-08-21] MEDS: CEFTRIAXONE SODIUM 2 GM in 0.9 % SODIUM CHLORIDE 100 ML IV (20:48)
[2024-08-21] MEDS: LACTATED RINGERS 1000ML 1,000 ML 999 ML IV (20:48)
[2024-08-21] MEDS: AZITHROMYCIN 250MG TABLET 500 MG PO (20:48)
[2024-08-21 22:56] LABS: Reflex Lactic Add Lactic Reflex
[2024-08-21 23:32] LABS: Troponin I 0.02 ng/ml (0.00-0.034)
[2024-08-21 23:52] LABS: Coronavirus 19, PCR Not Detected (NotDetected); Influenza A, PCR Not Detected (NotDetected); Influenza B, PCR Not Detected (NotDetected)
== END 2024-08-21 23:27 | disposition home or self-care (01) ==
PROVIDERS: Emergency Provider Emergency Medicine; PCP Nurse Practitioner Family
DX: J44.1 Chronic obstructive pulmonary disease with (acute) exacerbation (principal)
CPT/HCPCS: 71046; 80053; 82803; 83880; 84484; 85025; 85610; 85730; 86803; 87389; 87636; 93005; 94640; 96365; 96375; 99285; J0696; J2919; J7120; J7620

== ENCOUNTER 2024-12-31 15:53 | Outpatient (CLI) | payer MEDICARE, MEDICAID, SELFPAY ==
--- OUTSIDE RECORDS SUMMARY | 2024-12-02 10:40 | XMS_ITS | Encounter Summary ---
Author Organization [facility] Address [address] [place] [address] Care Team Providers Care Research Leader Name Role Phone Avelino Salas MD Primary Care Provider + [phone] Reason for Referral * Consultation (Routine) - Authorized Specialty Diagnoses / Procedures Referred By Ko t Referred To Contact Diagnoses Other cirrhosis of liver (CMS/HCC) Lisa Alcaraz MD [address] [address] Phone: tel: fax: Referral ID Status Reason Start Date Expiration Date V isits Requested Visits Authorized [id number] Authorized 12/02/2024 06/03/2026 1 1 * Imaging (Routine) - Authorized Specialty Diagnoses / Procedures Referred By Contcaroline ruiz Referred To Contact Diagnoses Other cirrhosis of liver (CMS/HCC) Procedures US Liver Screen Lisa Alcaraz MD [address] [facility] [address] [place] [address] Phone: tel: fax: Referral ID Status Reason Start Date Expiration Date V isits Requested Visits Authorized [id number] Authorized 12/02/2024 06/03/2026 1 1 Reason for Visit * Reason Comments Non-alcoholic Fatty Liver Encounter Details Date Type Department Care Team (Genny Contact Info) Description 12/02/2024 10:40 AM EDT Office Visit [facility] Medicine Specialties [address] [place] [address] Elin Kelly MD [address] [place] [address] Other cirrhosis of liver (CMS/HCC) (Primary Dx) Social History Tobacco Use Types Packs/Day Years Used Date Smoking Tobacco: Every Day Cigarettes 1 42.5 Started: 1983 Passive Smoke Exposure: Current Smokeless Tobacco: Never Tobacco Cessation:Ready to Q uit: Not Asked; Counseling Given: Not Answered Alcohol Use Standard Drinks/Week Comments No 0 (1 standard drink = 0.6 oz pur e alcohol) PHQ-2 Answer Date Recorded Patient Health Questionnaire-2 Score 6 12/02/2024 PHQ-9 Answer Date Recorded Patient Health Questionnaire-9 Score 22 12/02/2024 Comments No Sex and Gender Information Value Date Recorded Sex Assigned at Not on file Legal Sex Female 8:46 PM EDT Gender Identity Not on file Sexual Orientation Not on file documented as of this encounter Last Filed Vital Signs Vital Sign Reading Time Taken Comments Blood Pressure 122/67 12/02/2024 10:43 AM EDT Pulse 65 12/02/2024 10:43 AM EDT Temperature 36.6 C (97.9 F) 12/02/2024 10:43 AM EDT Respiratory Rate - - Oxygen Saturation 94% 12/02/2024 10:43 AM EDT Inhaled Oxygen Concentration - - Weight 68 kg (149 lb 14.6 oz) 12/02/2024 10:43 A M EDT Height 149.9 cm (4' 11 ) 12/02/2024 10:43 AM EDT Body Mass Index 30.28 12/02/2024 10:43 AM EDT documented in this encounter Functional Status * Over the past 2 weeks, how often have you been bothered by any of the following problems? Question Answer Date of Assessment Author Little interest or pleasure in doing things Nearly every day 12/02/2024 10:58 AM EDT Jamie Rodas Feeling down, depressed, or hopeless Nearly every day 12/02/2024 10:58 AM Jamie Quach Patient Health Questionnaire-2 Score 6 12/02/2024 10:58 AM Jamie Quach * Question Answer Date of Assessment Author Trouble falling or staying asleep, or sleeping too much Nearly every day 12/02/2024 10:58 AM Jamie Quach Feeling tired or having little energy Nearly every day 12/02/2024 10:58 AM Jamie Quach Poor appetite or overeating More than half the days 12/02/2024 10:58 AM Jamie Quach Feeling bad about yourself - or that you are a failure or have let yourself or your family down More than half the days 12/02/2024 10:58 AM Jamie Quach Trouble concentrating on things, such as reading the newspaper or watching television Nearly every day 12/02/2024 10:58 AM Jamie Quach Moving or speaking so slowly that other people could have noticed? Or the opposite - being so fidgety or restless that you have been moving around a lot more than usual. Nearly every day 12/02/2024 10:58 AM Jamie Quach Thoughts that you would be better off or hurting yourself in some way Not at all 12/02/2024 10:58 AM Jamie Quach Patient Health Questionnaire-9 Score 22 12/02/2024 10:58 AM Jamie Quach * If you checked off any problems on this questionnaire so far, Question Answer Date of Assessment Author How difficult have these problems made it for you to do your work, take care of things at home, or get along with other people? Not difficult at all 12/02/2024 10:58 AM Jamie Quach documented as of this encounter Miscellaneous Notes * Progress Notes - Elin Kelly MD - 12/02/2024 10:40 AM EDT Subjective Dorota Flor HPI Ms. Flor is a 59 y.o. female being seen today in clinic for follow up for cirrhosis. She has a PMH of chronic constipation s/p colostomy w/ revision on Linzess, CAD s/p PCI, HTN, A-fib, GERD, and cirrhosis. 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 She denies EtOH use. Previous work-up negative for autoimmune and hepatitis B/C. She is accompanied by her daughter today. Ms. Flor has been falling more frequently and had one episode of blacking out while eating breakfast. She has been having difficulties with sleep/wake cycles and staying up at night. She is slow to respond today and daughters notes this has also worsened. At last visit, she was prescribed lactulose but has not taken any of it because she thought it would make her constipated. She has a colostomy and changes her bag a couple times per day. Takes rifaximin daily. She notes worsened LE edema and abdominal distension and her PCP put her on Lasix 20mg daily. She denies melena, hematemesis, hematochezia. Last US Liver was in 04/2024 at [facility]. It showed fatty liver - no mention of ascites or splenomegaly. She had EGD 04/2024 without varices. Past Medical History[1] Family History[2] Surgical History[3] Social History Socioeconomic History Marital status: Spouse name: Not on file Number of children: Not on file Years of education: Not on file Highest education level: Not on file Occupational History Not on file Tobacco Use Smoking status: Every Day Current packs/day: 1.00 Average packs/day: 1 pack/day for 42.5 years (42.5 ttl pk-yrs) Types: Cigarettes Start date: 1982 Passive exposure: Current Smokeless tobacco: Never Vaping Use Vaping status: Never Used Substance and Sexual Activity Alcohol use: No Drug use: No Comment: Drug use: No illicit drug use Sexual activity: Not on file Other Topics Concern Not on file Social History Narrative Not on file Social Drivers of Health Financial Resource Strain: Not on file Food Insecurity: No Food Insecurity (09/11/2023) Received from [facility] Food Insecurity Food run out past 12 months: Not on file Food did not last past 12 months: Not on file Transportation Needs: Not on file Physical Activity: Not on file Stress: Not on file Social Connections: Low Risk (09/11/2023) Received from [facility] Family and Community Support Help with Day to Day Activities: Not on file Feeling Lonely or Isolated: Not on file Intimate Partner Violence: Unknown (03/25/2023) Received from [facility] Abuse Screen Unsafe at Home or Work/School: Not on file Feels Threatened by Someone?: Not on file Does Anyone Keep You from Contacting Others or Doint Things Outside the Home?: Not on file Physical Sign of Abuse Present: Not on file Housing Stability: Low Risk (09/11/2023) Received from [facility] Housing Stability Living situation today: Not on file Living situation problems: Not on file Medications Ordered Prior to Encounter[4] Allergies[5] Health Maintenance Due Topic Date Due [facility]-Medicare Annual Wellness (AWV) Never done [facility]-HIV Screening Never done [id number] Vaccine (1) Never done Diabetes: Dental Exam Never done [facility]- SDOH Screenings Never done [facility]-Hepatitis A Vaccines (1 of 2 - Risk 2-dose series) Never done [facility]-Breast Cancer Screening Never done [facility]-Zoster Vaccines (1 of 2) Never done [facility]-Lung Cancer Screening Never done [facility]-DTaP,Tdap,and Td Vaccines (2 - Td or Tdap) 12/06/2017 [facility]-Pneumococcal Vaccine: 50+ Years (2 of 2 - PCV) 03/17/2021 [facility]-Diabetes: Hemoglobin A1C 05/17/2021 [facility]-RSV Vaccine: 60+ Years or (1 - Risk 60-74 years 1-dose series) Never done [facility]-Colorectal Cancer Screening 11/26/2024 [facility]-Influenza Vaccine (Season Ended) 2025 All medications have been reviewed today. The following portions of the patient's chart were reviewed in this encounter and updated as appropriate: past medical history, surgical history, family history, tobacco history, allergies, and medications Review of Systems Constitutional: Positive for fatigue. Negative for fever. Gastrointestinal: Negative for anal bleeding, blood in stool, constipation, diarrhea, nausea, rectal pain and vomiting. Psychiatric/Behavioral: Positive for confusion and sleep disturbance. Objective Vitals: 12/02/24 1043 BP: 122/67 Pulse: 65 Temp: 36.6 ??C (97.9 ??F) SpO2: 94% Physical Exam Vitals reviewed. Constitutional: Appearance: She is ill-appearing. HENT: Head: Normocephalic and atraumatic. Eyes: Conjunctiva/sclera: Conjunctivae normal. Pulmonary: Effort: Pulmonary effort is normal. Abdominal: General: There is distension. Tenderness: There is no abdominal tenderness. There is no guarding. Musculoskeletal: Right lower leg: Edema present. Left lower leg: Edema present. Skin: Coloration: Skin is not jaundiced. Neurological: Comments: Slow to respond Psychiatric: Comments: forgetful Assessment/Plan Problem List Items Addressed This Visit None Visit Diagnoses Other cirrhosis of liver (CMS/HCC) - Primary Relevant Orders CBC and differential (Completed) Comprehensive metabolic panel (Completed) Protime-INR (Completed) US Liver Screen Follow Up GI Ms. Dorota Flor is a 59 year old female being seen today in clinic for initial clinic evaluation for cirrhosis. She PMH of chronic constipation s/p colostomy w/ then reversal, CAD s/p PCI, HTN, A-fib, GERD, and cirrhosis. #Decompensated MASH cirrhosis #Hepatic encephalopathy - confirmed via liver biopsy 07/2023. CIRRHOSIS, WITH FEATURES OF ONGOING STEATOHEPATITIS PATTERN OFINJURY (SEE COMMENT). Previous viral hepatitis and autoimmune work-up unremarkable - MELD 3.0 is 10 - Ascites: No evidence of ascites but on Lasix 20 daily for LE edema. - Varices: Patient with HR baseline 60s- would not tolerate NSBB. Had last EGD 04/2024 with normal esophagus. No varices. Consider repeating EGD every year. - HE: Lactulose/Rifaximin w/ target 3 soft BMs per day. - HCC: None - Transplant: low MELD RECOMMENDATIONS: - patient with worsening hepatic encephalopathy - currently not taking lactulose and was strongly advised to restart. New script sent today for 15g TID. Continue Rifaxmin 550mg BID for hepatic encephalopathy. Also should be considered for taper off of alprazolam. Patient was strongly advised to come to ER if no improvement in HE with regular lactulose within 7 days. Daughter was agreeable with this plan as well. - labs: cbc, cmp, INR. Reviewed - MELD 3.0 is 10 - will need to check Hep A IgG and Hep b sAB at next visit - imaging: liver US screen ordered to be done close to home. - Consider repeating EGD 04/2025 for variceal screening in this decompensated cirrhosis patient whowould not tolerate NSBB with HR baseline 60s. - daily protein intake of 1.2 to 1.5 g/kg and caloric intake of 35 Kcal/kg, thiamine, vitamin B complex supplementation and late night (or bedtime) snack - 2g/day Na diet. No NSAIDS. APAP <2g/day Return to clinic in 3 months Elin Kelly MD [1] Past Medical History: Diagnosis Date Depression Diabetes mellitus (CMS/HCC) Disease of thyroid gland Disorder of the autonomic nervous system, unspecified Autonomic nervous system disorder H/O heart artery stent Liver disease Personal history of other diseases of the musculoskeletal system and connective tissue History of fibromyalgia Personal history of other endocrine, nutritional and metabolic disease History of diabetes mellitus Personal history of other endocrine, nutritional and metabolic disease History of hyperthyroidism Personal history of other endocrine, nutritional and metabolic disease History of hypothyroidism Personal history of other mental and behavioral disorders History of depression Personal history of urinary calculi History of kidney stones [2] Family History Problem Relation Name Age of Onset Heart attack Mother Heart disease Sister Hypertension Other [3] Past Surgical History: Procedure Laterality Date COLOSTOMY LITHOTRIPSY N/A lithotripsy from [facility] OTHER SURGICAL HISTORY N/A Liver Biopsy from [facility] OTHER SURGICAL HISTORY N/A ostomy from [facility] [4] Current Outpatient Medications on File Prior to Visit Medication Sig Dispense Refill Accu-Chek Guide test strip DIRECTED TO TEST THREE TIMES DAILY Alpha tocopherol (Vitamin E) 200 units capsule Take 1 capsule by mouth 1 (one) time each day. ALPRAZolam (Xanax) 1 MG tablet TAKE ONE TABLET BY MOUTH THREE TIMES DAILY MAY CAUSE DROWSINESS ASPIRIN 81 MG chewable tablet Chew 1 tablet (81 mg) 1 (one) time each day. betamethasone dipropionate 0.05 % EX cream APPLY TOPICALLY TO THE AFFECTED AREA(S) TWICE DAILY DIRECTED busPIRone (Buspar) 10 MG tablet Take 2 tablets (20 mg) by mouth twice a day. cholecalciferol (Vitamin D3) 25 MCG (1000 UT) tablet Take 2 tablets (2,000 Units) by mouth 1 (one) time each day. dilTIAZem CD (Cardizem CD) 120 MG 24 hr capsule Take 1 capsule (120 mg) by mouth 1 (one) time each day. FeroSul 325 (65 Fe) MG tablet Take 1 tablet by mouth 3 times a week. furosemide (Lasix) 20 MG tablet Take 1 tablet by mouth daily. Jardiance 25 MG lamoTRIgine (LaMICtal) 100 MG tablet Take 1 tablet (100 mg) by mouth twice a day. Lantus SoloStar 100 UNIT/ML injection pen levothyroxine (Synthroid, Levoxyl) 112 MCG tablet Take 1 tablet (112 mcg) by mouth 1 (one) time each day. (Patient taking differently: Take 125 mcg by mouth daily.) linaCLOtide (Linzess) 290 MCG capsule Take 1 capsule (290 mcg) by mouth 1 (one) time each day before breakfast. magnesium oxide (Mag-Ox) 400 (240 Mg) MG tablet Take 1 tablet (400 mg) by mouth twice a day. Motegrity 2 MG tablet NON FORMULARY Take 10 mg by mouth 4 (four) times a day. Domperidone ondansetron (Zofran) 4 MG tablet Take 1 tablet (4 mg) by mouth every 6 (six) hours if needed. potassium chloride CR (Klor-Con M20) 20 MEQ ER tablet Take 1 tablet (20 mEq) by mouth 2 (two) timesa day. pregabalin (Lyrica) 75 MG capsule Take 1 capsule (75 mg) by mouth 3 (three) times a day. propranolol LA (Inderal LA) 160 MG 24 hr capsule Take 1 capsule (160 mg) by mouth 1 (one) time eachday. ranolazine (Ranexa) 500 MG 12 hr tablet Take 1 tablet (500 mg) by mouth twice a day. rosuvastatin (Crestor) 20 MG tablet Take 1 tablet (20 mg) by mouth 1 (one) time each day. Vascepa 1 g capsule venlafaxine XR (Effexor-XR) 150 MG 24 hr capsule Take 1 capsule (150 mg) by mouth 1 (one) time eachday. cyanocobalamin 100 MCG tablet Take 10 tablets (1,000 mcg) by mouth 1 (one) time each day. (Patient not taking: Reported on 12/02/2024) esomeprazole (NexIUM) [address] capsule Take 1 capsule (20 mg) by mouth 1 (one) time each day. (Patient not taking: Reported on 12/02/2024) fenofibrate micronized (Lofibra) 134 MG capsule Take 1 capsule (134 mg) by mouth 1 (one) time each day. (Patient not taking: Reported on 12/02/2024) glyBURIDE (Diabeta) 5 MG tablet Take 1 tablet (5 mg) by mouth 1 (one) time each day. (Patient not taking: Reported on 12/02/2024) pantoprazole (Protonix) 40 MG EC tablet Take 1 tablet (40 mg) by mouth 1 (one) time each day. (Patient not taking: Reported on 12/02/2024) rifAXIMin (Xifaxan) 550 MG tablet Take 1 tablet (550 mg) by mouth 2 (two) times a day. (Patient nottaking: Reported on 12/02/2024) 60 tablet 1 Tradjenta 5 MG tablet Take 1 tablet (5 mg) by mouth 1 (one) time each day. (Patient not taking: Reported on 12/02/2024) No current facility-administered medications on file prior to visit. [5] Allergies Allergen Reactions Hydrocodone Anaphylaxis and Unknown - Patient states they do not know rxn details Tolerated oxycodone and morphine at [facility] in September 2020. Other Reaction(s): Unknown - Patient states they do not know rxn details Tolerated oxycodone and morphine at [facility] in September 2020. Hydrocodone-Acetaminophen Other - please document in the comment field and Unknown - Patient statesthey do not know rxn details Other reaction(s): edema Other reaction(s): edema Other Reaction(s): Other - please document in the comment field, Unknown - Patient states they do not know rxn details Other Anaphylaxis Ativan [Lorazepam] Other - please document in the comment field Patient states she was having a bad reaction Toradol [Ketorolac Tromethamine] Other - please document in the comment field Pt reported it made her feel stiff and hurt Tramadol Other - please document in the comment field and Unknown - Patient states they do not knowrxn details Tolerated oxycodone and morphine at [facility] in September 2020. Gets stiff and rigid per patient Other reaction(s): Other (See Comments) Gets stiff and rigid per patient Other reaction(s): Other (See Comments) Gets stiff and rigid per patient Other Reaction(s): Other - please document in the comment field, Unknown - Patient states they do not know rxn details Tolerated oxycodone and morphine at [facility] in September 2020. Gets stiff and rigid per patient Other reaction(s): Other (See Comments) Gets stiff and rigid per patient Cosigned by Lisa Alcaraz MD at 12/14/2024 12:28 PM EDT Associated attestation - Lisa Alcaraz MD - 12/14/2024 12:28 PM EDT I saw and evaluated the patient with the resident/fellow. I discussed the case with the resident/fellow and agree with the findings and plan as documented. documented in this encounter Plan of Treatment Upcoming Encounters Date Type Department Care Team (Late st Contact Info) Description 04/09/2025 4:00 PM EDT Office Visit [facility] [place] [address], [address] [place] [id number] Jordan Hanson MD [address] [place] [address] 06/22/2025 4:00 PM EST Office Visit [facility] Medicine Specialties [address] [place] [address] Elin Kelly MD [address] [place] [address] Scheduled Orders Name Type Priority Associated Diagnoses Orde r Schedule US Liver Screen Imaging Routine Other cirrhosis of liver (CMS/HCC) Expected: 12/02/2024 (Approximate), Expires: 06/05/2026 Scheduled Referrals Name Type Priority Associated Diagnoses Orde r Schedule Follow Up GI Outpatient Referral Routine Other cirrhosis of liver (CMS/HCC) Expected: 06/03/2025, Expires: 01/01/2026 documented as of this encounter Results * (ABNORMAL) Protime-INR (12/02/2024 12:02 PM EDT) Prothrombin Time 14.6(H) 12.0 - 14.3 sec LAB COAGULATION METHOD 12/02/2024 1:48 PM EDT [facility] INR 1.1 0.9 - 1.1 LAB COAGULATION METHOD 12/02/2024 1:48 PM EDT [facility] Blood Venous blood specimen / Unknown Venipuncture / Unknown 12/02/2024 12:02 PM EDT 12/02/2024 12:02 PM EDT Narrative [facility] - 12/02/2024 1:48 PM EDT OPTIMAL INR RANGES FOR PATIENT ON ORAL ANTICOAGULANT THERAPY Prevention of venous thromboembolism INR 2.0 to 3.0 In patients with heart disease: Atrial fibrillation INR 2.0 to 3.0 Valvular heart disease INR 2.0 to 3.0 Tissue heart valves INR 2.0 to 3.0 Mechanical prosthetic valves INR 2.5 to 3.5 Prevention of recurrent IL INR 2.5 to 3.5 us Lisa Alcaraz MD LAB BLOOD ORDERABLES Final Res ult [facility] [address] [place] [address] * (ABNORMAL) Comprehensive metabolic panel (12/02/2024 12:02 PM EDT) Glucose, Plasma 180(H) 74 - 99 mg/dL 12/02/2024 2:13 PM EDT [facility] BUN, Plasma 20 8 - 23 mg/dL 12/02/2024 2:13 PM EDT [facility] Creatinine, Plasma 1.21(H) 0.60 - 1.10 mg/dL 12/02/2024 2:13 PM EDT [facility] BUN/Creatinine Ratio 17 12/02/2024 2:13 PM EDT [facility] Sodium, Plasma 139 136 - 145 mmol/L 12/02/2024 2:13 PM EDT [facility] Potassium, Plasma 4.1 3.6 - 4.9 mmol/L 12/02/2024 2:13 PM EDT [facility] Chloride, Plasma 101 97 - 107 mmol/L 12/02/2024 2:13 PM EDT [facility] CO2, Plasma 26 22 - 29 mmol/L 12/02/2024 2:13 PM EDT [facility] Anion Gap 12 6 - 16 mmol/L 12/02/2024 2:13 PM EDT [facility] Total Calcium, Plasma 8.7(L) 8.9 - 10.2 mg/dL 12/02/2024 2:13 PM EDT [facility] Total Protein 7.5 6.3 - 7.9 g/dL 12/02/2024 2:13 PM EDT [facility] Albumin, Plasma 4.4 3.5 - 5.2 g/dL 12/02/2024 2:13 PM EDT [facility] AST, Plasma 26 10 - 35 U/L 12/02/2024 2:13 PM EDT [facility] ALT, Plasma 19 10 - 35 U/L 12/02/2024 2:13 PM EDT [facility] Alkaline Phosphatase, Plasma 170(H) 46 - 142 U/L 12/02/2024 2:13 PM EDT [facility] Total Bilirubin, Plasma 0.3 0.2 - 1.1 mg/dL 12/02/2024 2:13 PM EDT [facility] eGFRcr 51.4 mL/min/1.7 3m*2 12/02/2024 2:13 PM EDT [facility] Comment:Reported eGFRcr in m L/min/1.73m2 is based the CKD-EPI 2020 equation that does not use a race coefficient. Blood Venous blood specimen / Unknown Venipuncture / Unknown 12/02/2024 12:02 PM EDT 12/02/2024 12:02 PM EDT us Lisa Alcaraz MD LAB BLOOD ORDERABLES Final Res ult [facility] [address] [place] [address] * (ABNORMAL) CBC and differential (12/02/2024 12:02 PM EDT) WBC Count 6.36 3.70 - 10.30 10*3/uL LAB HEMATOLOGY METHOD 12/02/2024 4:00 PM EDT [facility] RBC Count 5.02 3.90 - 5.20 10*6/uL LAB HEMATOLOGY METHOD 12/02/2024 4:00 PM EDT [facility] HGB 13.5 11.2 - 15.7 g/dL LAB HEMATOLOGY METHOD 12/02/2024 4:00 PM EDT [facility] HCT 41.5 34.0 - 45.0 % LAB HEMATOLOGY METHOD 12/02/2024 4:00 PM EDT [facility] Platelet Count 84(L) 155 - 369 10*3/uL LAB HEMATOLOGY METHOD 12/02/2024 4:00 PM EDT [facility] MCV 83 79 - 98 fL LAB HEMATOLOGY METHOD 12/02/2024 4:00 PM EDT [facility] MCH 26.9 26.0 - 32.0 pg LAB HEMATOLOGY METHOD 12/02/2024 4:00 PM EDT [facility] MCHC 32.5 30.7 - 35.5 g/dL LAB HEMATOLOGY METHOD 12/02/2024 4:00 PM EDT [facility] RDW 19.5(H) 11.5 - 14.5 % LAB HEMATOLOGY METHOD 12/02/2024 4:00 PM EDT [facility] MPV 9.4 8.8 - 12.5 fL LAB HEMATOLOGY METHOD 12/02/2024 4:00 PM EDT [facility] nRBC 0.0 <=0.0 per 100 WBCs LAB HEMATOLOGY METHOD 12/02/2024 4:00 PM EDT [facility] Differential Type Automated LAB HEMATOLOGY METHOD 12/02/2024 4:00 PM EDT [facility] Neutrophils % 50 % LAB HEMATOLOGY METHOD 12/02/2024 4:00 PM EDT [facility] Lymphocytes % 37 % LAB HEMATOLOGY METHOD 12/02/2024 4:00 PM EDT [facility] Monocytes % 7 % LAB HEMATOLOGY METHOD 12/02/2024 4:00 PM EDT [facility] Eosinophils % 4 % LAB HEMATOLOGY METHOD 12/02/2024 4:00 PM EDT [facility] Basophils % 1 % LAB HEMATOLOGY METHOD 12/02/2024 4:00 PM EDT [facility] Immature Granulocytes % 1 % LAB HEMATOLOGY METHOD 12/02/2024 4:00 PM EDT [facility] Neutrophils Absolute 3.17 1.60 - 6.10 10*3/uL LAB HEMATOLOGY METHOD 12/02/2024 4:00 PM EDT [facility] Lymphocytes Absolute 2.36 1.20 - 3.90 10*3/uL LAB HEMATOLOGY METHOD 12/02/2024 4:00 PM EDT [facility] Monocytes Absolute 0.44 0.30 - 0.90 10*3/uL LAB HEMATOLOGY METHOD 12/02/2024 4:00 PM EDT [facility] Eosinophils Absolute 0.25 0.00 - 0.50 10*3/uL LAB HEMATOLOGY METHOD 12/02/2024 4:00 PM EDT [facility] Basophils Absolute 0.08 0.00 - 0.10 10*3/uL LAB HEMATOLOGY METHOD 12/02/2024 4:00 PM EDT [facility] Immature Granulocytes Absolute 0.06 0.00 - 0.06 10*3/uL LAB HEMATOLOGY METHOD 12/02/2024 4:00 PM EDT [facility] Blood Venous blood specimen / Unknown Venipuncture / Unknown 12/02/2024 12:02 PM EDT 12/02/2024 12:02 PM EDT Narrative [facility] - 12/02/2024 4:00 PM EDT Therapeutic decision making should be based on absolute values, rather than percentages. us Lisa Alcaraz MD LAB BLOOD ORDERABLES Final Res ult [facility] [address] [place] [address] documented in this encounter Visit Diagnoses Diagnosis Other cirrhosis of liver (CMS/HCC)- Primary documented in this encounter Additional Health Concerns Infection Onset Date Last Indicated Resolved Time C. difficile 10/01/2024 10/01/2024 Assessment Noted Time PHQ-9 Depression Total Score: 22 025 10:58 AM EDT A fall risk assessment has been complete d for the patient 10/06/2024 2:45 PM EDT A Body Mass Index follow-up plan has been documented for the patient 12/04/2024 9:51 AM EDT documented as of this encounter Care Teams Research Leader Relationship Specialty Start Date End Date Avelino Salas MD [address] [place] [id number] PCP - General 10/28/20 documented as of this encounter
--- OUTSIDE RECORDS SUMMARY | 2024-12-24 03:01 | XMS_ITS | Encounter Summary ---
Author Organization Healthcare Address [address] [place] [address] Care Team Providers Care Body Shop Supervisor Name Role Phone Avelino Salas MD Primary Care Provider + [phone] Reason for Referral * Consultation (Routine) - Authorized Specialty Diagnoses / Procedures Referred By Ko ruiz Referred To Contact Family Medicine Diagnoses Other cirrhosis of liver (CMS/HCC) Polypharmacy Prabhjot Mehta MD [address] [place] [address] Phone: tel: fax: Referral ID Status Reason Start Date Expiration Date V isits Requested Visits Authorized [id number] Authorized 12/25/2024 06/26/2026 1 1 Reason for Visit * Reason Comments Altered Mental Status * Auth/Cert (Routine) Specialty Diagnoses / Procedures Referred By Ko ruiz Referred To Contact Diagnoses Acute encephalopathy Veroniak Mendez MD [address] [place] [address] Phone: tel: fax: [facility] [address] [place] [phone] Phone: tel: Referral ID Status Reason Start Date Expiration Date Visits Re quested Visits Authorized [id number] 1 1 Encounter Details Date Type Department Care Team (Latest Contact Info) Description 12/24/2024 3:01 AM EDT - 12/25/2024 7:15 PM EDT Hospital Encounter [facility] [address] [place] [address] Veronika Mendez MD [address] [place] [address] Prabhjot Mehta MD [address] [place] [address] Altered mental status, unspecified altered [...] this encounter Medications at Time of Discharge Alpha tocopherol (Vitamin E) 200 units capsule [...] by mouth 1 time each day. 08/26/2018 Accu-Chek Guide test strip DIRECTED TO TEST THREE TIMES DAILY documented as of this encounter Miscellaneous Notes * Discharge Summary - Prabhjot Mehta MD - 12/25/2024 6:37 PM EDT Images from the original note were not included. Hospitalization Admit Date/Time: 12/24/2024 3:01 AM Admitting Attending: Veronika Mendez Discharge Date: 12/25/24 Discharge Attending Physician: Prabhjot Mehta MD PCP name and Address: Avelino Salas MD [address] [facility] / [place] [address] Referring provider name and address: No referring provider defined for this encounter. Chief Concern, Brief History of Present Illness, and Hospital Course 59F PMH MASH cirrhosis, CAD s/p stents (2017), PVCs s/p ablation (1999), HTN, HLD, T2DM, CKD2, COPDw/ nicotine dependence, chronic constipation s/p colostomy w/ revision, hypothyroidism, GERD fibromyalgia & bipolar disorder presented to [facility] ED overnight 12/23-03/2025 accompanied by adult daughter [...] 04/09/2025 4:00 PM Jordan Hanson MD [facility] 06/22/2025 4:00 PM Elin Kelly MD [facility] Test Results Pending At Discharge Pertinent Physical [...] assistance, Home health PT, Home health OT (Holdikz32/ assist) Equipment Recommended: Rolling walker Subjective Pt agreeable to therapy session. Participants in Care Family/Caregiver Present: No Biometrics Specialist: Not Applicable Presentation Oxygen Therapy: None (Room [...] sitting. Bed Mobility Exam: Scooting/Bridging Level of [place]: Stand-by assist (towards EOB) Physical/Nonphysical Assist: Verbal Cues, Minimal cues Assistive Device: Bed rails Bed Mobility Exam: Supine to Sit Level of [place]: Stand-by assist Physical/Nonphysical Assist: Verbal Cues, Minimal cues Assistive Device: Bed rails Transfers Transfer Interventions: Verbal cues for safe hand, foot, and AD placement prior to standing/sitting Transfer Exam: Sit to stand Level of [place]: Contact guard Physical/Nonphysical Assist: Verbal Cues, Minimal cues Assistive Device: Walker, rolling Transfer Exam: Stand to Sit Level of [place]: Contact guard Physical/Nonphysical Assist: Verbal Cues, Minimal [...] GERD fibromyalgia & bipolar disorder presented to [facility] ED overnight 12/23-03/2025 accompanied by adult daughter [...] attempted to call patient's daughter (Christin Flor [phone]) to update [facility] course & plan but there was no [...] Abnormal Ventricular Rate 61 Atrial Rate 61 NJ Interval 138 QRSD Interval 98 QT Interval 408 QTC Interval 410 P Chauncey 62 R Chauncey 18 T Wave Chauncey 106 Diagnosis Normal sinus rhythm Diagnosis Possible [...] elsewhere in A&P Prabhjot Chalino Mehta MD, [facility] Medicine Secure chat preferred Pager [phone] Note to Patient: The Century Cures Act [...] Note Dorota Flor 59 y.o. female CSN: [id number] Room/Bed 512/512 Nutrition evaluation type: assessment Reason for evaluation: provider consult Hospital course: 59 yoF presents to ED 12/24 d/t acute on chronic encephalopathy, worsening physicalfunction, reoccurring falls. Past medical/ surgical history: Past Medical History[1] Surgical History[2] Social history: Social History[3] Additional comments: Pt in ED Vitals and Basic Assessment: BP: 125/72 Temp: 36.5 ??C (97.7 ??F) Oxygen Therapy: None (Room air) Cuong Coma Scale Score: 14 Ubaldo Scale Score: [...] 30.08 Weight Evaluation: Obese-Class 1 (BMI 30-34.9) Holliday Body Weight (kg): 44.3 Percent Holliday Body Weight: 152 Adjusted Body Weight (kg): [...] Regular Adult Carbohydrate Restriction: Consistent CHO 3 ([id number] Howard, 95 g/meal) Adult Sodium Restriction: 2,000 mg Na Adult Fluid Restriction / 24 hr: 2000 mlfluid Percent Meals Eaten (%): Establishing Diet Experience and Nutrition History: Diet Education Provided: Will monitor Pertinent home medications: vit E, buspirone, vit D3, FeroSul, lasix, jardiance, lactulose, levothyroxine, magnesium oxide, motegrity, zofran, potassium chloride, rosuvastatin, venlafaxine Restoration needs: Nutrition Focused Physical Exam: Unable to [...] Laterality Date COLOSTOMY LITHOTRIPSY N/A lithotripsy from [facility] OTHER SURGICAL HISTORY N/A Liver Biopsy from [facility] OTHER SURGICAL HISTORY N/A ostomy from [facility] [3] Social History Tobacco Use Smoking status: [...] Note Dorota Flor 59 y.o. female CSN: [id number] Admission: 12/24/2024 3:01 AM Primary Problem: Acute [...] Management * Progress Notes - Alison Nixon, EDIE-SANITARIAN - 12/24/2024 10:50 AM EDT Speech Language Pathology Clinical Swallow Initial Evaluation and Discharge Evaluation Patient Name: Dorota Flor Age: 59 y.o. Today's Date: 12/24/2024 Recommendations: Regular (IDDSI Level 7) diet w/ thin liquids (Level 0). Meds as able. No further SANITARIAN services indicated at this time. Will sign [...] Relevant Imaging: CXR 12/24: Glascow Coma Scale: Cuong Coma Scale Score: 14 Imaging: CXR 12/24: [...] (X): intact palate elevation Spinal Accessory (XI): [facility] Hypoglossal Nerve (XII): [facility] Function Exam: Secretion Management: adequate Vocal Quality: adequate Cough: - Volitional adequate - Reflexive PO trials did not elicit Oral Feeding Trials: Positioning: Upright Feeding assistance: independent, self-fed Consistencies Administered: thin liquid via cup, thin liquid via straw, pudding via teaspoon, and dry solid consistency Risk Factors: cognitive status Weatherly Swallow Protocol (April, 2008) - 3 Oz water challenge: Passed Assessment Patient consumed extensive PO trials of thin liquids, puree and dry solids. Oral motor evaluation revealed functional labial and lingual ROM, strength and tone. Oral phase was characterized by full labial closure and anterior oral containment. Pharyngeal phase was characterized by no overt s/s of aspiration. Pt passed the Weatherly Swallow Protocol suggesting low risk of aspiration. Pt denies hx of dysphagia and CXR is WNL. Given overall medical condition, would suspect likelihood of aspiration withsubsequent pulmonary complications to be low. Ok to resume full PO diet. Patient Education was provided via verbal instruction to patient and daughter regarding SANITARIAN evaluation and POC. Results and recommendations of this evaluation were communicated to: Medical team Plan / Recommendations Diet recommendations: Regular (IDDSI Level 7) diet w/ thin liquids (Level 0). Meds as able. No further SANITARIAN services indicated at this time. Will sign [...] coronary artery (CMS/HCC) Coronary artery disease involving [place] coronary artery of [place] heart with unstable angina pectoris (CMS/HCC) Palpitations [...] prior to admission Visitors Present Adult Daughter Biometrics Specialist (if applicable) PRESENTATION Oxygen Room Air Telemetry [...] admission Level of Mobility Ambulatory- community Mobility [place] Independent gait without device History of Falls [...] Mobility Bed Mobility Exam: Rolling/Turning Level of [place]: Contact guard Physical/Nonphysical Assist: Verbal Cues, Minimal cues Bed Mobility Exam: Scooting/Bridging Level of [place]: Contact guard Physical/Nonphysical Assist: Verbal Cues, Minimal cues Bed Mobility Exam: Supine to Sit Level of [place]: Contact guard Physical/Nonphysical Assist: Verbal Cues, Minimal cues, HOB elevated (increased time) Bed Mobility Exam: Sit to Supine Level of [place]: Contact guard Physical/Nonphysical Assist: Verbal Cues, Minimal cues, HOB elevated (increased time) Transfers Transfer Exam: Sit to stand Level of [place]: Minimum assist (75% patient's effort) Physical/Nonphysical Assist: Set-up required, Verbal Cues, Nonverbal cues (demo/gestures), Minimal cues Assistive Device: Hand held assist Transfer Exam: Stand to Sit Level of [place]: Minimum assist (75% patient's effort) Physical/Nonphysical Assist: [...] from EOB with Min A x2 via RN NICU. Mobility performed a short distance in hallway as prep for navigating household distances to engage in ADL/IADL tasks. Min A with periods of Mod A for mobility. Pt returned supine with CGA upon conclusion of mobility. Educated pt and daughter regarding OTPOC and discharge recommendations. STANDARDIZED ASSESSMENTS [facility] 6-Click Daily Activities Help from Other: Don/Doff Regular Lower Body Clothings: A lot Help From Other: Bathing: A lot Help From Other: Toileting: A lot Help From Other: Don/Doff Upper Body Clothings: Little Help From Other: Grooming: Little Help From Other: Eating Meals: Little [facility] 6 Click - Daily Activities Score: 15 [...] 12/24/2024 Acute kidney injury superimposed on CKD ([facility]/HCC) 12/24/2024 Cirrhosis ([facility]) 12/24/2024 Metabolic acidosis 12/24/2024 Mood disorder ([facility]/HCC) 12/24/2024 Thyroid disease 10/06/2024 COPD (chronic obstructive pulmonary disease) ([facility]) 10/18/2023 Diabetes mellitus ([facility]/HCC) 10/18/2023 Presence of colostomy ([facility]) 10/18/2023 Essential hypertension 10/11/2020 Procedures Past Medical [...] Care Family/Caregiver Present: Yes Family/Caregiver: Adult Daughter Biometrics Specialist: Not Applicable Presentation Oxygen Therapy: None (Room [...] admission Level of Mobility: Ambulatory- community Mobility [place]: Independent gait without device History of Falls: [...] Mobility Bed Mobility Exam: Rolling/Turning Level of [place]: Contact guard Physical/Nonphysical Assist: Verbal Cues, Minimal cues Bed Mobility Exam: Scooting/Bridging Level of [place]: Contact guard Physical/Nonphysical Assist: Verbal Cues, Minimal cues Bed Mobility Exam: Supine to Sit Level of [place]: Contact guard Physical/Nonphysical Assist: Verbal Cues, Minimal cues, HOB elevated (increased time) Bed Mobility Exam: Sit to Supine Level of [place]: Contact guard Physical/Nonphysical Assist: Verbal Cues, Minimal cues, HOB elevated (increased time) Transfers Transfer Exam: Sit to stand Level of [place]: Minimum assist (75% patient's effort) Physical/Nonphysical Assist: Set-up required, Verbal Cues, Nonverbal cues (demo/gestures), Minimal cues Assistive Device: Hand held assist Transfer Exam: Stand to Sit Level of [place]: Minimum assist (75% patient's effort) Physical/Nonphysical Assist: [...] for appropriate and safe LE advancement with RN NICU for support due to unsteadiness Standardized Assessments Standardized Assessments Standardized Assessments: [facility] 6-Clicks Mobility Assessment [facility] 6[facility]Clicks Mobility Assessment Difficulty patient has turning [...] 3-5 steps with a railing?: A lot [facility] 6-Clicks Mobility Assessment Total : 18 Assessment Patient demonstrated good effort and toleration to PT evaluation of global mobility presenting withAMS and falls. Patient most limited due to impaired cognition and motor planning, decreased functional endurance/strength, and impaired balance. Patient only able to ambulate ~50ft with RN NICU prior to r equiring rest break. Patient [...] hypothyroidism, GERD fibromyalgia & bipolar disorderpresented [facility] 12/23-03/2025 accompanied by adult daughter [...] Abnormal Ventricular Rate 61 Atrial Rate 61 NJ Interval 138 QRSD Interval 98 QT Interval 408 QTC Interval 410 P Chauncey 62 R Chauncey 18 T Wave Chauncey 106 Diagnosis Normal sinus rhythm Diagnosis Possible [...] mellitus (CMS/HCC) Essential hypertension Presence of colostomy ([facility]/HCC) Thyroid disease Debility Falls frequently Acute kidney [...] detailed elsewhere in A&P Prabhjot Mehta MD, [facility] Medicine Secure chat preferred Pager [phone] Note to Patient: The Cures Act makes [...] sodium chloride * H&P - Lokesh Arredondo, [employer]PER[employer], QUENTIN - 12/24/2024 6:27 AM EDTAssociated Order(s): Consult to [facility] Medicine - Jamar Images from the original note were not included. Consult to [facility] Medicine - Jamar Consult performed by: Lokesh [...] Center 04/09/2025 4:00 PM Jordan Hanson MD [facility] 06/22/2025 4:00 PM Elin Kelly MD [facility] Lokesh Arredondo APRN, DNP [1] Past Medical [...] Laterality Date COLOSTOMY LITHOTRIPSY N/A lithotripsy from [facility] OTHER SURGICAL HISTORY N/A Liver Biopsy from [facility] OTHER SURGICAL HISTORY N/A ostomy from [facility] [3] Family History Problem Relation Name Age [...] Gait abnormal. Psychiatric: Behavior: Behavior is cooperative. Cuong Coma Scale Score: 14 ED Course & [...] be concerning for active ACS or acute DC. Complete laboratory workup as below was ordered [...] assigned) Acknowledged MADUJIBEYA, LOKESH N 12/24/24 07 SANITARIAN eval and treat Until therapy completed Acknowledged [...] LAW LOKESH N 12/24/24 0626 Consult to [facility] Once Specialty: Internal Medicine Provider: [...] None Disposition Admit Admitting/Attending Physician: VERONIKA MENDEZ [[id number]] Provider Care Team: GARIMA JURADO 13 [[id number]] [...] Laterality Date COLOSTOMY LITHOTRIPSY N/A lithotripsy from [facility] OTHER SURGICAL HISTORY N/A Liver Biopsy from [facility] OTHER SURGICAL HISTORY N/A ostomy from [facility] [3] Family History Problem Relation Name Age [...] rxn details Tolerated oxycodone and morphine at [facility] in September 2020. Gets stiff and [...] Description 04/09/2025 4:00 PM EDT Office Visit [facility] [place] [address], [address] [place] [address] Jordan Hanson MD [address] [place] [address] 06/22/2025 4:00 PM EST Office Visit [facility] Medicine Specialties [address] [place] [id number] Elin Kelly MD [address] [place] [address] Scheduled Referrals Name Type Priority Associated Diagnoses [...] POCT glucose meter (12/25/2024 5:24 PM EDT) [facility] POCT Glucose 224(H) 74 - 99 mg/dL [...] Comment 12/25/2024 5:26 PM EDT HEALTHCARE LAB Range Mounter ID Elvira Streeter 12/25/2024 5:26 PM EDT HEALTHCARE LAB Device ID [id number] 12/25/2024 5:26 PM EDT [facility] Specimen Type POC Capillary 12/25/2024 5:26 PM EDT [facility] Blood Capillary blood specimen / Unknown 12/25/2024 5:24 PM EDT 12/25/2024 5:26 PM EDT us Prabhjot Mehta MD LAB POINT OF CARE TE ST DOCKED DEVICE UNSOLICITED RESULTS Final Result Performing Organization Address City/State/[facility] Co de Phone Number HEALTHCARE LAB [address] [place] [address] * (ABNORMAL) POCT glucose meter (12/25/2024 11:22 AM EDT) [facility] POCT Glucose 288(H) 74 - 99 mg/dL [...] Comment 12/25/2024 11:23 AM EDT HEALTHCARE LAB Range Mounter ID Elvira Streeter 12/25/2024 11:23 AM EDT HEALTHCARE LAB Device ID [id number] 12/25/2024 11:23 AM EDT HEALTHCARE LAB Specimen Type POC Capillary 12/25/2024 11:23 AM EDT HEALTHCARE LAB Blood Capillary blood specimen / Unknown 12/25/2024 11:22 AM EDT 12/25/2024 11:23 AM EDT us Prabhjot Mehta MD LAB POINT OF CARE TE ST DOCKED DEVICE UNSOLICITED RESULTS Final Result Performing Organization Address City/[facility] Co de Phone Number [facility] [address] [place] [address] * (ABNORMAL) POCT glucose meter (12/25/2024 8:01 AM EDT) [facility] POCT Glucose 242(H) 74 - 99 mg/dL [...] Comment 12/25/2024 8:03 AM EDT HEALTHCARE LAB Range Mounter ID Elvira Streeter 12/25/2024 8:03 AM EDT HEALTHCARE LAB Device ID [id number] 12/25/2024 8:03 AM EDT HEALTHCARE LAB Specimen Type POC Capillary 12/25/2024 8:03 AM EDT HEALTHCARE LAB Blood Capillary blood specimen / Unknown 12/25/2024 8:01 AM EDT 12/25/2024 8:03 AM EDT us Prabhjot Mehta MD LAB POINT OF CARE TE ST DOCKED DEVICE UNSOLICITED RESULTS Final Result Performing Organization Address City/[facility]/ZIP Co de Phone Number [facility] [address] [place] [address] * (ABNORMAL) POCT glucose meter (12/25/2024 5:29 AM EDT) [facility] POCT Glucose 215(H) 74 - 99 mg/dL [...] Comment 12/25/2024 5:31 AM EDT HEALTHCARE LAB Range Mounter ID Nicole Saucedo 5:31 AM EDT HEALTHCARE LAB Device ID [id number] 12/25/2024 5:31 AM EDT [facility] Specimen Type POC Capillary 12/25/2024 5:31 AM EDT [facility] Blood Capillary blood specimen / Unknown 12/25/2024 5:29 AM EDT 12/25/2024 5:31 AM EDT us Prabhjot Mehta MD LAB POINT OF CARE TE ST DOCKED DEVICE UNSOLICITED RESULTS Final Result [facility]ARE [facility] [address] [place] [address] * (ABNORMAL) Basic Metabolic Panel, Plasma (12/25/2024 3:42 AM EDT) [facility] Glucose, Plasma 193(H) 74 - 99 mg/dL 12/25/2024 4:47 AM EDT [facility] BUN, Plasma 53(H) 8 - 23 mg/dL 12/25/2024 4:47 AM EDT [facility] Creatinine, Plasma 1.37(H) 0.60 - 1.10 mg/dL 12/25/2024 4:47 AM EDT [facility] BUN/Creatinine Ratio 39 12/25/2024 4:47 AM EDT [facility] Sodium, Plasma 136 136 - 145 mmol/L 12/25/2024 4:47 AM EDT [facility] Potassium, Plasma 3.6 3.6 - 4.9 mmol/L 12/25/2024 4:47 AM EDT [facility] Chloride, Plasma 105 97 - 107 mmol/L 12/25/2024 4:47 AM EDT [facility] CO2, Plasma 17(L) 22 - 29 mmol/L 12/25/2024 4:47 AM EDT [facility] Anion Gap 14 6 - 16 mmol/L 12/25/2024 4:47 AM EDT [facility] Total Calcium, Plasma 9.4 8.9 - 10.2 mg/dL 12/25/2024 4:47 AM EDT [facility] eGFRcr 44.3 mL/min/1.7 3m*2 12/25/2024 4:47 AM EDT [facility] Comment:Reported eGFRcr in m L/min/1.73m2 is based the CKD-EPI 2020 equation that does not use a race coefficient. Blood Venous blood specimen / Unknown Venipuncture / Unknown 12/25/2024 3:42 AM EDT 12/25/2024 3:58 AM EDT us Prabhjot Mehta MD LAB BLOOD ORDERABLES Final Resul t Performing Organization Address City/[facility]/ZIP Co de Phone Number [facility] [address] [place] [address] * Phosphorus, Plasma (12/25/2024 3:42 AM EDT) Phosphorus, Plasma 3.5 2.5 - 4.5 mg/dL 12/25/2024 4:47 AM EDT [facility] Blood Venous blood specimen / Unknown Venipuncture / Unknown 12/25/2024 3:42 AM EDT 12/25/2024 3:58 AM EDT us Prabhjot Mehta MD LAB BLOOD ORDERABLES Final Resul t [facility] [address] [place] [address] * (ABNORMAL) Protime-INR (12/25/2024 3:42 AM EDT) Prothrombin Time 15.2(H) 12.0 - 14.3 sec LAB COAGULATION METHOD 12/25/2024 4:12 AM EDT [facility] INR 1.2(H) 0.9 - 1.1 LAB COAGULATION METHOD 12/25/2024 4:12 AM EDT [facility] Blood Venous blood specimen / Unknown Venipuncture / Unknown 12/25/2024 3:42 AM EDT 12/25/2024 3:52 AM EDT Narrative [facility] - 12/25/2024 4:12 AM EDT OPTIMAL INR RANGES FOR PATIENT ON ORAL ANTICOAGULANT THERAPY Prevention of venous thromboembolism INR 2.0 to 3.0 In patients with heart disease: Atrial fibrillation INR 2.0 to 3.0 Valvular heart disease INR 2.0 to 3.0 Tissue heart valves INR 2.0 to 3.0 Mechanical prosthetic valves INR 2.5 to 3.5 Prevention of recurrent DC INR 2.5 to 3.5 us Prabhjot Mehta MD LAB BLOOD ORDERABLES Final Resul t [facility] [address] [place] [address] * (ABNORMAL) Hepatic Function Panel (12/25/2024 3:42 AM EDT) Conjugated Bilirubin, Plasma <0.2 <=0.3 mg/dL 12/25/2024 4:47 AM EDT [facility] Alkaline Phosphatase, Plasma 203(H) 46 - 142 U/L 12/25/2024 4:47 AM EDT [facility] Total Bilirubin, Plasma 0.3 0.2 - 1.1 mg/dL 12/25/2024 4:47 AM EDT [facility] Albumin, Plasma 4.1 3.5 - 5.2 g/dL 12/25/2024 4:47 AM EDT [facility] Total Protein 7.8 6.3 - 7.9 g/dL 12/25/2024 4:47 AM EDT [facility] ALT, Plasma 33 10 - 35 U/L 12/25/2024 4:47 AM EDT [facility] AST, Plasma 48(H) 10 - 35 U/L 12/25/2024 4:47 AM EDT [facility] Comment:Hemolyzed, result ma y be falsely increased. Blood Venous blood specimen / Unknown Venipuncture / Unknown 12/25/2024 3:42 AM EDT 12/25/2024 3:58 AM EDT us Prabhjot Mehta MD LAB BLOOD ORDERABLES Final Resul t [facility] [address] [place] [address] * (ABNORMAL) CBC and Differential (12/25/2024 3:42 AM EDT) WBC Count 7.49 3.70 - 10.30 10*3/uL LAB HEMATOLOGY METHOD 12/25/2024 3:56 AM EDT [facility] RBC Count 5.25(H) 3.90 - 5.20 10*6/uL LAB HEMATOLOGY METHOD 12/25/2024 3:56 AM EDT [facility] HGB 14.8 11.2 - 15.7 g/dL LAB HEMATOLOGY METHOD 12/25/2024 3:56 AM EDT [facility] HCT 42.1 34.0 - 45.0 % LAB HEMATOLOGY METHOD 12/25/2024 3:56 AM EDT [facility] Platelet Count 94(L) 155 - 369 10*3/uL LAB HEMATOLOGY METHOD 12/25/2024 3:56 AM EDT [facility] MCV 80 79 - 98 fL LAB HEMATOLOGY METHOD 12/25/2024 3:56 AM EDT [facility] MCH 28.2 26.0 - 32.0 pg LAB HEMATOLOGY METHOD 12/25/2024 3:56 AM EDT [facility] MCHC 35.2 30.7 - 35.5 g/dL LAB HEMATOLOGY METHOD 12/25/2024 3:56 AM EDT [facility] RDW 16.9(H) 11.5 - 14.5 % LAB HEMATOLOGY METHOD 12/25/2024 3:56 AM EDT [facility] MPV 9.5 8.8 - 12.5 fL LAB HEMATOLOGY METHOD 12/25/2024 3:56 AM EDT [facility] nRBC 0.0 <=0.0 per 100 WBCs LAB HEMATOLOGY METHOD 12/25/2024 3:56 AM EDT [facility] Differential Type Automated LAB HEMATOLOGY METHOD 12/25/2024 3:56 AM EDT [facility] Neutrophils % 44 % LAB HEMATOLOGY METHOD 12/25/2024 3:56 AM EDT [facility] Lymphocytes % 44 % LAB HEMATOLOGY METHOD 12/25/2024 3:56 AM EDT [facility] Monocytes % 8 % LAB HEMATOLOGY METHOD 12/25/2024 3:56 AM EDT [facility] Eosinophils % 3 % LAB HEMATOLOGY METHOD 12/25/2024 3:56 AM EDT [facility] Basophils % 1 % LAB HEMATOLOGY METHOD 12/25/2024 3:56 AM EDT [facility] Immature Granulocytes % 0 % LAB HEMATOLOGY METHOD 12/25/2024 3:56 AM EDT [facility] Neutrophils Absolute 3.28 1.60 - 6.10 10*3/uL LAB HEMATOLOGY METHOD 12/25/2024 3:56 AM EDT [facility] Lymphocytes Absolute 3.26 1.20 - 3.90 10*3/uL LAB HEMATOLOGY METHOD 12/25/2024 3:56 AM EDT [facility] Monocytes Absolute 0.59 0.30 - 0.90 10*3/uL LAB HEMATOLOGY METHOD 12/25/2024 3:56 AM EDT [facility] Eosinophils Absolute 0.24 0.00 - 0.50 10*3/uL LAB HEMATOLOGY METHOD 12/25/2024 3:56 AM EDT [facility] Basophils Absolute 0.10 0.00 - 0.10 10*3/uL LAB HEMATOLOGY METHOD 12/25/2024 3:56 AM EDT [facility] Immature Granulocytes Absolute 0.02 0.00 - 0.06 10*3/uL LAB HEMATOLOGY METHOD 12/25/2024 3:56 AM EDT [facility] Blood Venous blood specimen / Unknown Venipuncture / Unknown 12/25/2024 3:42 AM EDT 12/25/2024 3:52 AM EDT [facility] - 12/25/2024 3:56 AM EDT Therapeutic decision making should be based on absolute values, rather than percentages. us Prabhjot Mehta MD LAB BLOOD ORDERABLES Final Resul t [facility] [address] [place] [address] * Magnesium, Plasma (12/25/2024 3:42 AM EDT) [facility] Magnesium, Plasma 2.3 1.9 - 2.4 mg/dL 12/25/2024 4:47 AM EDT [facility] Blood Venous blood specimen / Unknown Venipuncture / Unknown 12/25/2024 3:42 AM EDT 12/25/2024 3:58 AM EDT us Prabhjot Mehta MD LAB BLOOD ORDERABLES Final Resul t Performing Organization Address [facility] de Phone Number [facility] [address] [place] [address] * (ABNORMAL) POCT glucose meter (12/25/2024 12:12 AM EDT) [facility] POCT Glucose 208(H) 74 - 99 mg/dL [...] 12/25/2024 12:13 AM EDT [facility] Range Mounter ID Crystal Merchant 12/26/19 25 12:13 AM EDT [facility] Device ID [id number] 12/25/2024 12:13 AM EDT [facility] Specimen Type POC Capillary 12/25/2024 12:13 AM EDT [facility] Blood Capillary blood specimen / Unknown 12/25/2024 12:12 AM EDT 12/25/2024 12:13 AM EDT us Prabhjot Mehta MD LAB POINT OF CARE TE ST DOCKED DEVICE UNSOLICITED RESULTS Final Result Performing Organization Address [facility] Co de Phone Number [facility] [address] [place] [address] * (ABNORMAL) POCT glucose meter (12/24/2024 9:55 PM EDT) [facility] POCT Glucose 317(H) 74 - 99 mg/dL [...] Comment 12/24/2024 9:57 PM EDT [facility] Range Mounter ID Nicole Saucedo 9:57 PM EDT [facility] Device ID [id number] 12/24/2024 9:57 PM EDT [facility] Specimen Type POC Capillary 12/24/2024 9:57 PM EDT [facility] Blood Capillary blood specimen / Unknown 12/24/2024 9:55 PM EDT 12/24/2024 9:57 PM EDT us Prabhjot Mehta MD LAB POINT OF CARE TE ST DOCKED DEVICE UNSOLICITED RESULTS Final Result Performing Organization Address City/State/[facility] Co de Phone Number [facility] [address] [place] [address] * (ABNORMAL) POCT glucose meter (12/24/2024 8:22 PM EDT) [facility] POCT Glucose 336(H) 74 - 99 mg/dL [...] 12/24/2024 8:23 PM EDT [facility] Range Mounter ID Crystal Merchant 12/25/19 8:23 PM EDT [facility] Device ID [id number] 12/24/2024 8:23 PM EDT [facility] Specimen Type POC Capillary 12/24/2024 8:23 PM EDT [facility] Blood Capillary blood specimen / Unknown 12/24/2024 8:22 PM EDT 12/24/2024 8:23 PM EDT us Prabhjot Mehta MD LAB POINT OF CARE TE ST DOCKED DEVICE UNSOLICITED RESULTS Final Result [facility] [address] [place] [address] * US Abdomen Doppler Limited (12/24/2024 7:16 [...] Comment 12/24/2024 5:57 PM EDT [facility] Range Mounter ID Alexys Rangel 025 5:57 PM EDT [facility] Device ID [id number] 12/24/2024 5:57 PM EDT [facility] Specimen Type POC Capillary 12/24/2024 5:57 PM EDT [facility] Blood Capillary blood specimen / Unknown 12/24/2024 5:55 PM EDT 12/24/2024 5:57 PM EDT us Prabjhot Mehta MD LAB POINT OF CARE TE ST DOCKED DEVICE UNSOLICITED RESULTS Final Result [facility] [address] [place] [address] * (ABNORMAL) POCT glucose meter (12/24/2024 4:46 PM EDT) [facility] POCT Glucose 273(H) 74 - 99 mg/dL [...] Comment 12/24/2024 4:48 PM EDT [facility] Range Mounter ID Seb Gore 12/24/2024 4:48 PM EDT [facility] Device ID [id number] 12/24/2024 4:48 PM EDT [facility] Specimen Type POC Capillary 12/24/2024 4:48 PM EDT [facility] Blood Capillary blood specimen / Unknown 12/24/2024 4:46 PM EDT 12/24/2024 4:48 PM EDT us Prabhjot Mehta MD LAB POINT OF CARE TE ST DOCKED DEVICE UNSOLICITED RESULTS Final Result Performing Organization Address [facility] de Phone Number [facility] [address] [place] [address] * T4, free (12/24/2024 2:33 PM EDT) [facility] Free T4, Plasma 1.5 0.8 - 1.7 ng/dL 12/24/2024 6:24 PM EDT [facility] Blood Venous blood specimen / Unknown Venipuncture / Unknown 12/24/2024 2:33 PM EDT 12/24/2024 2:37 PM EDT us Prabhjot Mehta MD LAB BLOOD ORDERABLES Final Resul t Performing Organization Address City/[facility] Co de Phone Number [facility] [address] [place] [address] * (ABNORMAL) TSH (12/24/2024 2:33 PM EDT) Thyroid Stimulating Hormone, Plasma 0.31(L) 0.40 - 4.20 uIU/mL 12/24/2024 6:24 PM EDT [facility] Blood Venous blood specimen / Unknown Venipuncture / Unknown 12/24/2024 2:33 PM EDT 12/24/2024 2:37 PM EDT us Prabhjot Mehta MD LAB BLOOD ORDERABLES Final Resul t Performing Organization Address City/[facility]/ZIP Co de Phone Number [facility] [address] [place] [address] * Folate, Serum (12/24/2024 2:33 PM EDT) Pathologist [facility] [place] Folate, Serum 7.4 >4.6 ng/mL 12/24/2024 4:02 PM EDT [facility] Blood Venous blood specimen / Unknown Venipuncture / Unknown 12/24/2024 2:33 PM EDT 12/24/2024 2:37 PM EDT us Prabhjot Mehta MD LAB BLOOD ORDERABLES Final Resul t Performing Organization Address [facility] [place] [address] * Vitamin B12, Serum (12/24/2024 2:33 PM EDT) Pathologist [facility] [place] Vitamin B12, Serum 599 210 - 1,033 pg/mL 12/24/2024 4:02 PM EDT [facility] Blood Venous blood specimen / Unknown Venipuncture / Unknown 12/24/2024 2:33 PM EDT 12/24/2024 2:37 PM EDT us Prabhjot Mehta MD LAB BLOOD ORDERABLES Final Resul t Performing Organization Address City/[facility] [place] [address] * Vitamin D 25 Hydroxy (12/24/2024 2:33 PM EDT) Pathologist [facility] [place] Vitamin D 25 Hydroxy 34.6 20.0 - 80.0 ng/mL 12/24/2024 4:05 PM EDT [facility] Blood Venous blood specimen / Unknown Venipuncture / Unknown 12/24/2024 2:33 PM EDT 12/24/2024 2:37 PM EDT Narrative [facility] - 12/24/2024 4:05 PM EDT Testing performed on [employer], standardized against NIST SRM 2972. When testing [...] MD LAB BLOOD ORDERABLES Final Resul t [facility] [address] [place] [address] * (ABNORMAL) Renal function panel (12/24/2024 2:33 PM EDT) [facility] Glucose, Plasma 296(H) 74 - 99 mg/dL 12/24/2024 2:56 PM EDT [facility] BUN, Plasma 64(H) 8 - 23 mg/dL 12/24/2024 2:56 PM EDT [facility] Creatinine, Plasma 1.60(H) 0.60 - 1.10 mg/dL 12/24/2024 2:56 PM EDT [facility] BUN/Creatinine Ratio 40 12/24/2024 2:56 PM EDT [facility] Sodium, Plasma 131(L) 136 - 145 mmol/L 12/24/2024 2:56 PM EDT [facility] Potassium, Plasma 3.6 3.6 - 4.9 mmol/L 12/24/2024 2:56 PM EDT [facility] Chloride, Plasma 104 97 - 107 mmol/L 12/24/2024 2:56 PM EDT [facility] CO2, Plasma 16(L) 22 - 29 mmol/L 12/24/2024 2:56 PM EDT [facility] Anion Gap 11 6 - 16 mmol/L 12/24/2024 2:56 PM EDT [facility] Total Calcium, Plasma 9.1 8.9 - 10.2 mg/dL 12/24/2024 2:56 PM EDT [facility] Phosphorus, Plasma 4.6(H) 2.5 - 4.5 mg/dL 12/24/2024 2:56 PM EDT [facility] Albumin, Plasma 4.4 3.5 - 5.2 g/dL 12/24/2024 2:56 PM EDT [facility] eGFRcr 36.8 mL/min/1.7 3m*2 12/24/2024 2:56 PM EDT [facility] Comment:Reported eGFRcr in m L/min/1.73m2 is based the CKD-EPI 2020 equation that does not use a race coefficient. Blood Venous blood specimen / Unknown Venipuncture / Unknown 12/24/2024 2:33 PM EDT 12/24/2024 2:37 PM EDT us Prabhjot Mehta MD LAB BLOOD ORDERABLES Final Resul t [facility] [address] [place] [address] * (ABNORMAL) POCT glucose meter (12/24/2024 11:43 AM EDT) POCT Glucose 182(H) 74 - 99 mg/dL 12/24/2024 11:45 AM EDT [facility] Comment:Accuracy of a glucos e result [...] Comment 12/24/2024 11:45 AM EDT [facility] Range Mounter ID Dagoberto Lam 11:45 AM EDT [facility] Device ID [id number] 12/24/2024 11:45 AM EDT [facility]ALTH[facility] LAB Specimen Type POC Capillary 12/24/2024 11:45 AM EDT [facility] Blood Capillary blood specimen / Unknown 12/24/2024 11:43 AM EDT 12/24/2024 11:45 AM EDT Prabhjot Mehta MD LAB POINT OF CARE TE ST DOCKED DEVICE UNSOLICITED RESULTS Final Result Performing Organization Address City/[facility] Co de Phone Number [facility] [address] [place] [address] * SEND BARBARA MESSAGE (12/24/2024 8:34 AM EDT) Urine Urine specimen obtained by clean catch procedure / Unknown Non-blood Collection / Unknown 12/24/2024 8:34 AM EDT 12/24/2024 8:57 AM EDT Martha Chang APRN LAB URINE ORDERABLES Fin al Result Performing Organization Address City/[facility] [place] [address] * Urine Culture (12/24/2024 8:34 AM EDT) Culture <10,000 CFU/mL Mixed urogenital, fecal, or skin robbie present. 12/25/2024 9:24 AM EDT [facility] Urine Urine specimen obtained by clean catch procedure / Unknown Non-blood Collection / Unknown 12/24/2024 8:34 AM EDT 12/24/2024 8:57 AM EDT Martha Chang APRN LAB MICROBIOLOGY - GENER AL ORDERABLES Final Result Performing Organization Address [facility] [place] [address] * Urinalysis Microscopic Examination (12/24/2024 8:34 AM EDT) Urine Urine specimen obtained by clean catch procedure / Unknown Non-blood Collection / Unknown 12/24/2024 8:34 AM EDT 12/24/2024 8:36 AM EDT [facility] [employer] LAB URINE ORDERABLES Fin al Result Performing Organization Address City/[facility]/ZIP Co de Phone Number [facility] [address] [place] [address] * Urine Bsihop Panel (12/24/2024 8:34 AM EDT) Extra Sent for Culture 12/24/2024 10:01 AM EDT [facility] Urine Urine specimen obtained by clean catch procedure / Unknown Non-blood Collection / Unknown 12/24/2024 8:34 AM EDT 12/24/2024 8:57 AM [facility] Fin al Result Performing Organization Address [facility] de Phone Number [facility] [address] [place] [address] * (ABNORMAL) Urinalysis with reflex microscopic (Culture NOT Included) (12/24/2024 8:34 AM EDT) Color, Urine Yellow LAB URINALYSIS - AUTOMATED METHOD 12/24/2024 9:25 AM EDT [facility] Clarity, Urine Clear LAB URINALYSIS - AUTOMATED METHOD 12/24/2024 9:25 AM EDT [facility] Spec [place], Urine 1.024 1.005 - 1.030 LAB URINALYSIS - AUTOMATED METHOD 12/24/2024 9:25 AM EDT [facility] pH, Urine 6.0 5.0 - 8.0 LAB URINALYSIS - AUTOMATED METHOD 12/24/2024 9:25 AM EDT [facility] Protein, Urine 30(A) Negative mg/dL LAB URINALYSIS - AUTOMATED METHOD 12/24/2024 9:25 AM EDT [facility] Glucose, Urine 500(A) Negative mg/dL LAB URINALYSIS - AUTOMATED METHOD 12/24/2024 9:25 AM EDT [facility] Ketones, Urine Negative Negative mg/dL LAB URINALYSIS - AUTOMATED METHOD 12/24/2024 9:25 AM EDT [facility] Blood, Urine Negative Negative LAB URINALYSIS - AUTOMATED METHOD 12/24/2024 9:25 AM EDT [facility] Bilirubin, Urine Negative Negative LAB URINALYSIS - AUTOMATED METHOD 12/24/2024 9:25 AM EDT [facility] Urobilinogen, Urine 0.2 0.2 to 1.0 mg/dL LAB URINALYSIS - AUTOMATED METHOD 12/24/2024 9:25 AM EDT [facility] Leukocytes, Urine Trace(A) Negative LAB URINALYSIS - AUTOMATED METHOD 12/24/2024 9:25 AM EDT [facility] Nitrite, Urine Negative Negative LAB URINALYSIS - AUTOMATED METHOD 12/24/2024 9:25 AM EDT [facility] RBC, Urine 1 0 to 3 /HPF LAB URINALYSIS - AUTOMATED METHOD 12/24/2024 9:25 AM EDT [facility] Comment:This result was prev iously suppressed from the chart. WBC, Urine 11 - 20(A) 0 to 5 /HPF LAB URINALYSIS - AUTOMATED METHOD 12/24/2024 9:25 AM EDT [facility] Comment:This result was prev iously suppressed from the chart. Squamous Epithelial Cells 0 - 2 0 to 5 /HPF LAB URINALYSIS - AUTOMATED METHOD 12/24/2024 9:25 AM EDT [facility] Comment:This result was prev iously suppressed from the chart. Hyaline Casts 3 - 5 0 to 5 /LPF LAB URINALYSIS - AUTOMATED METHOD 12/24/2024 9:25 AM EDT [facility] Comment:This result was prev iously suppressed from the chart. Bacteria, Urine Negative Negative LAB URINALYSIS - AUTOMATED METHOD 12/24/2024 9:25 AM EDT [facility] Comment:This result was prev iously suppressed from the chart. Urine Urine specimen obtained by clean catch procedure / Unknown Non-blood Collection / Unknown 12/24/2024 8:34 AM EDT 12/24/2024 8:36 AM EDT Martha Chang APRN LAB URINE ORDERABLES Fin al Result [facility] [address] [place] [id number] * US Renal Complete (12/24/2024 8:20 AM [...] 26(H) <14 ng/L 12/24/2024 6:11 AM EDT [facility] Troponin Delta 4 <10 ng/L 12/24/2024 6:11 AM EDT [facility] Troponin Delta Interpretation Not Significant 12/24/2024 6:11 AM EDT [facility] Comment:Not Significant. No acute change in troponin observed between the baseline and 2 hour samples. Blood Venous blood specimen / Unknown Venipuncture / Unknown 12/24/2024 5:34 AM EDT 12/24/2024 5:43 AM EDT Martha Chang APRN LAB BLOOD ORDERABLES Fin al Result [facility] [address] [place] [address] * XR Elbow Right 3+ View (12/24/2024 [...] MD on 12/24/2024 5:25 AM Martha Chang [employer] IMG XR PROCEDURES Final Result * XR [...] 12/24/2024 5:26 AM Final report signed by Palbo Willard MD on 12/24/2024 5:30 AM Martha [...] Total DLP (Dose-Length Product): 1130.25 mGy.cm (accession [id number]), 1130.25 mGy.cm (accession [id number]). Please note: The reported value represents the total of one or more individual components during the CT acquisition on this date and at this time, and as such, the same value may appear in more than one CT report depending on the interpreting/reporting physicians. COMPARISON: None. FINDINGS: CT scan of cervical spine: Limited [id number]. No acute fracture or traumatic subluxation. Straightening [...] Total DLP (Dose-Length Product): 1130.25 mGy.cm (accession [id number]),1130.25 mGy.cm (accession [id number]). Please note: The reported valuerepresents the total of one or more individual components during the CTacquisition on this date and at this time, and as such, the same value mayappear in more than one CT report depending on the interpreting/reportingphysicians. COMPARISON: None. FINDINGS: CT scan of cervical spine: Limited lncmyn-[id number]. No acute fracture ortraumatic subluxation. Straightening of [...] Total DLP (Dose-Length Product): 1130.25 mGy.cm (accession [id number]), 1130.25 mGy.cm (accession [id number]). Please note: The reported value represents the total of one or more individual components during the CT acquisition on this date and at this time, and as such, the same value may appear in more than one CT report depending on the interpreting/reporting physicians. COMPARISON: None. FINDINGS: CT scan of cervical spine: Limited krdwlg-et-vyiva. No acute fracture or traumatic subluxation. Straightening [...] Total DLP (Dose-Length Product): 1130.25 mGy.cm (accession [id number]),1130.25 mGy.cm (accession [id number]). Please note: The reported valuerepresents the total of one or more individual components during the CTacquisition on this date and at this time, and as such, the same value mayappear in more than one CT report depending on the interpreting/reportingphysicians. COMPARISON: None. FINDINGS: CT scan of cervical spine: Limited acbieg-md-zxiat. No acute fracture ortraumatic subluxation. Straightening of [...] 8.4(H) <5.7 % 12/24/2024 11:34 PM EDT [facility] Blood Venous blood specimen / Unknown Venipuncture / Unknown 12/24/2024 3:31 AM EDT 12/24/2024 3:36 AM EDT Narrative [facility] - 12/24/2024 11:34 PM EDT [facility] Interpretive Data: Diagnosis of Diabetes: Diabetic > or = 6.5% Pre-diabetic 5.7 to 6.4% Non-diabetic < or = 5.6% Glycemic Targets for Type I and Type II Diabetics: Non- Adults <7.0% Adults <6.0% Children and Adolescents <7.5% Source: [place] [employer]. Standards of medical care in diabetes,2017. Diabetes Care.2017:40 (suppl 1):S1-S135. us Prabhjot Mehta MD LAB BLOOD ORDERABLES Final Resul t Performing Organization Address City/[facility]/ZIP Co de Phone Number [facility] [address] [place] [address] * Ammonia (12/24/2024 3:31 AM EDT) Ammonia 46 11 - 51 umol/L 12/24/2024 4:16 AM EDT [facility] Blood Venous blood specimen / Unknown Venipuncture / Unknown 12/24/2024 3:31 AM EDT 12/24/2024 3:41 AM EDT Martha Chang APRN LAB BLOOD ORDERABLES Fin al Result Performing Organization Address [facility] Co de Phone Number [facility] [address] [place] [address] * (ABNORMAL) Troponin now and 120 min (12/24/2024 3:31 AM EDT) Troponin T, High Sensitivity, 0 Hour 30(H) <14 ng/L 12/24/2024 4:10 AM EDT [facility] Blood Venous blood specimen / Unknown Venipuncture / Unknown 12/24/2024 3:31 AM EDT 12/24/2024 3:41 AM EDT Martha Chang APRN LAB BLOOD ORDERABLES Fin al Result Performing Organization Address City/[facility] Co de Phone Number [facility] [address] [place] [address] * (ABNORMAL) Blood gas panel, venous (12/24/2024 3:31 AM EDT) pH, Venous 7.26(L) 7.32 - 7.43 LAB HEMATOLOGY METHOD 12/24/2024 3:43 AM EDT [facility] pCO2, Venous 39 37 - 52 mmHg LAB HEMATOLOGY METHOD 12/24/2024 3:43 AM EDT [facility] pO2, Venous 64(H) 25 - 40 mmHg LAB HEMATOLOGY METHOD 12/24/2024 3:43 AM EDT [facility] SO2, Measured, Venous 91(H) 65 - 80 % LAB HEMATOLOGY METHOD 12/24/2024 3:43 AM EDT [facility] Base Excess, Venous -8.7(L) -2.0 - 3.0 mmol/L LAB HEMATOLOGY METHOD 12/24/2024 3:43 AM EDT [facility] Bicarbonate, Calculated, Venous 18(L) 22 - 26 mmol/L LAB HEMATOLOGY METHOD 12/24/2024 3:43 AM EDT [facility] Hematocrit, Whole Blood 47.7(H) 34.0 - 45.0 % LAB HEMATOLOGY METHOD 12/24/2024 3:43 AM EDT [facility] Sodium, Whole Blood 136 136 - 145 mmol/L LAB HEMATOLOGY METHOD 12/24/2024 3:43 AM EDT [facility] Potassium, Whole Blood 4.0 3.6 - 4.9 mmol/L LAB HEMATOLOGY METHOD 12/24/2024 3:43 AM EDT [facility] Chloride, Whole Blood 110(H) 97 - 107 mmol/L LAB HEMATOLOGY METHOD 12/24/2024 3:43 AM EDT [facility] Glucose, Whole Blood 147(H) 74 - 99 mg/dL LAB HEMATOLOGY METHOD 12/24/2024 3:43 AM EDT [facility] Lactate, Venous, Whole Blood 1.0 0.5 - 2.2 mmol/L LAB HEMATOLOGY METHOD 12/24/2024 3:43 AM EDT [facility] Ionized Calcium, Whole Blood 5.1 4.6 - 5.1 mg/dL LAB HEMATOLOGY METHOD 12/24/2024 3:43 AM EDT [facility] Blood Venous blood specimen / Unknown Venipuncture / Unknown 12/24/2024 3:31 AM EDT 12/24/2024 3:42 AM EDT Martha Chang APRN LAB BLOOD ORDERABLES Fin al Result [facility] [address] [place] [address] * (ABNORMAL) CMP (12/24/2024 3:31 AM EDT) Pathologist [facility] [place] Glucose, Plasma 146(H) 74 - 99 mg/dL 12/24/2024 4:10 AM EDT [facility] BUN, Plasma 70(H) 8 - 23 mg/dL 12/24/2024 4:10 AM EDT [facility] Creatinine, Plasma 1.73(H) 0.60 - 1.10 mg/dL 12/24/2024 4:10 AM EDT [facility] BUN/Creatinine Ratio 40 12/24/2024 4:10 AM EDT [facility] Sodium, Plasma 135(L) 136 - 145 mmol/L 12/24/2024 4:10 AM EDT [facility] Potassium, Plasma 4.1 3.6 - 4.9 mmol/L 12/24/2024 4:10 AM EDT [facility] Chloride, Plasma 104 97 - 107 mmol/L 12/24/2024 4:10 AM EDT [facility] CO2, Plasma 16(L) 22 - 29 mmol/L 12/24/2024 4:10 AM EDT [facility] Anion Gap 15 6 - 16 mmol/L 12/24/2024 4:10 AM EDT [facility] Total Calcium, Plasma 9.8 8.9 - 10.2 mg/dL 12/24/2024 4:10 AM EDT [facility] Total Protein 8.6(H) 6.3 - 7.9 g/dL 12/24/2024 4:10 AM EDT [facility] Albumin, Plasma 4.7 3.5 - 5.2 g/dL 12/24/2024 4:10 AM EDT [facility] AST, Plasma 38(H) 10 - 35 U/L 12/24/2024 4:10 AM EDT [facility] ALT, Plasma 32 10 - 35 U/L 12/24/2024 4:10 AM EDT [facility] Alkaline Phosphatase, Plasma 184(H) 46 - 142 U/L 12/24/2024 4:10 AM EDT [facility] Total Bilirubin, Plasma 0.4 0.2 - 1.1 mg/dL 12/24/2024 4:10 AM EDT [facility] eGFRcr 33.5 mL/min/1.7 3m*2 12/24/2024 4:10 AM EDT [facility] Comment:Reported eGFRcr in m L/min/1.73m2 is based the CKD-EPI 2020 equation that does not use a race coefficient. Blood Venous blood specimen / Unknown Venipuncture / Unknown 12/24/2024 3:31 AM EDT 12/24/2024 3:41 AM EDT Martha Chang APRN LAB BLOOD ORDERABLES Fin al Result [facility] [address] [place] [address] * (ABNORMAL) PT-INR (12/24/2024 3:31 AM EDT) Prothrombin Time 15.2(H) 12.0 - 14.3 sec 12/24/2024 3:54 AM EDT [facility] INR 1.2(H) 0.9 - 1.1 12/24/2024 3:54 AM EDT [facility] Blood Venous blood specimen / Unknown Venipuncture / Unknown 12/24/2024 3:31 AM EDT 12/24/2024 3:37 AM EDT Narrative [facility] - 12/24/2024 3:54 AM EDT OPTIMAL INR RANGES FOR PATIENT ON ORAL ANTICOAGULANT THERAPY Prevention of venous thromboembolism INR 2.0 to 3.0 In patients with heart disease: Atrial fibrillation INR 2.0 to 3.0 Valvular heart disease INR 2.0 to 3.0 Tissue heart valves INR 2.0 to 3.0 Mechanical prosthetic valves INR 2.5 to 3.5 Prevention of recurrent DC INR 2.5 to 3.5 Martha Chang APRN LAB BLOOD ORDERABLES Fin al Result [facility] [address] [place] [address] * (ABNORMAL) CBC w/diff (12/24/2024 3:31 AM EDT) WBC Count 10.89(H) 3.70 - 10.30 10*3/uL LAB HEMATOLOGY METHOD 12/24/2024 3:40 AM EDT [facility] RBC Count 5.52(H) 3.90 - 5.20 10*6/uL LAB HEMATOLOGY METHOD 12/24/2024 3:40 AM EDT [facility] HGB 15.4 11.2 - 15.7 g/dL LAB HEMATOLOGY METHOD 12/24/2024 3:40 AM EDT [facility] HCT 44.0 34.0 - 45.0 % LAB HEMATOLOGY METHOD 12/24/2024 3:40 AM EDT [facility] Platelet Count 122(L) 155 - 369 10*3/uL LAB HEMATOLOGY METHOD 12/24/2024 3:40 AM EDT [facility] MCV 80 79 - 98 fL LAB HEMATOLOGY METHOD 12/24/2024 3:40 AM EDT [facility] MCH 27.9 26.0 - 32.0 pg LAB HEMATOLOGY METHOD 12/24/2024 3:40 AM EDT [facility] MCHC 35.0 30.7 - 35.5 g/dL LAB HEMATOLOGY METHOD 12/24/2024 3:40 AM EDT [facility] RDW 16.9(H) 11.5 - 14.5 % LAB HEMATOLOGY METHOD 12/24/2024 3:40 AM EDT [facility] MPV 9.4 8.8 - 12.5 fL LAB HEMATOLOGY METHOD 12/24/2024 3:40 AM EDT [facility] nRBC 0.0 <=0.0 per 100 WBCs LAB HEMATOLOGY METHOD 12/24/2024 3:40 AM EDT [facility] Differential Type Automated LAB HEMATOLOGY METHOD 12/24/2024 3:40 AM EDT [facility] Neutrophils % 56 % LAB HEMATOLOGY METHOD 12/24/2024 3:40 AM EDT [facility] Lymphocytes % 35 % LAB HEMATOLOGY METHOD 12/24/2024 3:40 AM EDT [facility] Monocytes % 7 % LAB HEMATOLOGY METHOD 12/24/2024 3:40 AM EDT [facility] Eosinophils % 1 % LAB HEMATOLOGY METHOD 12/24/2024 3:40 AM EDT [facility] Basophils % 1 % LAB HEMATOLOGY METHOD 12/24/2024 3:40 AM EDT [facility] Immature Granulocytes % 0 % LAB HEMATOLOGY METHOD 12/24/2024 3:40 AM EDT [facility] Neutrophils Absolute 6.01 1.60 - 6.10 10*3/uL LAB HEMATOLOGY METHOD 12/24/2024 3:40 AM EDT [facility] Lymphocytes Absolute 3.81 1.20 - 3.90 10*3/uL LAB HEMATOLOGY METHOD 12/24/2024 3:40 AM EDT [facility] Monocytes Absolute 0.80 0.30 - 0.90 10*3/uL LAB HEMATOLOGY METHOD 12/24/2024 3:40 AM EDT [facility] Eosinophils Absolute 0.15 0.00 - 0.50 10*3/uL LAB HEMATOLOGY METHOD 12/24/2024 3:40 AM EDT [facility] Basophils Absolute 0.09 0.00 - 0.10 10*3/uL LAB HEMATOLOGY METHOD 12/24/2024 3:40 AM EDT [facility] Immature Granulocytes Absolute 0.03 0.00 - 0.06 10*3/uL LAB HEMATOLOGY METHOD 12/24/2024 3:40 AM EDT [facility] Blood Venous blood specimen / Unknown Venipuncture / Unknown 12/24/2024 3:31 AM EDT 12/24/2024 3:36 AM EDT [facility] - 12/24/2024 3:40 AM EDT Therapeutic decision making should be based on absolute values, rather than percentages. us Martha Chang APRN LAB BLOOD ORDERABLES Fin al Result [facility] [address] [place] [address] * EKG now - STAT (adult) (12/24/2024 3:16 AM EDT) Pathologist [facility] [place] EKG DIAGNOSIS CLASS Abnormal MUSE ECG Ventricular Rate 61 BPM MUSE ECG Atrial Rate 61 BPM MUSE ECG NJ Interval 138 ms MUSE ECG QRSD Interval 98 ms MUSE ECG QT Interval 408 ms MUSE ECG QTC Interval 410 ms MUSE ECG P Chauncey 62 degrees MUSE ECG R Chauncey 18 degrees MUSE ECG T Wave Chauncey 106 degrees MUSE ECG Diagnosis Normal sinus rhythm MUSE ECG Diagnosis Possible Left atrial enlargement MUSE ECG Diagnosis Incomplete right bundle branch block MUSE ECG Diagnosis ST & T wave abnormality, consider lateral ischemia MUSE ECG Diagnosis Pulmonary disease pattern MUSE ECG Diagnosis Abnormal ECG MUSE ECG Diagnosis MUSE ECG Diagnosis Confirmed by Javed Zavaleta ([id number]) on 12/24/2024 11:34:46 AM MUSE ECG 12/24/2024 3:16 AM EDT 12/24/2024 11:34 AM EDT Martha Chang SUPERVISOR [employer] ECG ORDERABLES Final Re sult MUSE ECG * (ABNORMAL) POCT glucose meter (12/24/2024 2:58 AM EDT) [facility] POCT Glucose 173(H) 74 - 99 mg/dL [...] 12/24/2024 3:00 AM EDT [facility] Range Mounter ID Alexx Mercer 3:00 AM EDT HEALTHCARE LAB Device ID [id number] 12/24/2024 3:00 AM EDT [facility] Specimen Type POC Capillary 12/24/2024 3:00 AM EDT [facility] Blood Capillary blood specimen / Unknown 12/24/2024 2:58 AM EDT 12/24/2024 3:00 AM EDT us Generic Provider Poct LAB POINT OF CARE TEST DOCKED DEVICE UNSOLICITED RESULTS Final Result [facility] [address] [place] [address] documented in this encounter Visit Diagnoses Diagnosis [...] Patt Smith RN)181 (Given - Provider: Ksenia Marurfo) 08 (Given - Provider: Irma Paz, HI)181 [...] Time MRSA Comment:Added from external infection. Source: [facility]. 11/21/2020 C. difficile 10/01/2024 10/01/2024 Assessment Noted Time PHQ-9 Depression Total Score: 22 025 10:58 AM EDT A fall risk assessment has been complete d for the patient 10/06/2024 2:45 PM EDT A Body Mass Index follow-up plan has been documented for the patient 12/25/2024 6:56 PM EDT documented as of this encounter Care Teams Body Shop Supervisor Relationship Specialty Start Date End Date Avelino Salas MD [address] [place] [address] PCP - General 10/28/20 documented as of this encounter
[2024-12-31 15:58] VITALS: BMI 27.0
[2024-12-31 16:00] VITALS: BP 130/50; PULSE 63; RESP 16; O2SAT 95
[2024-12-31] MEDS: 0.9 % SODIUM CHLORIDE 500 ML 999 ML IV (16:00)
--- OUTSIDE RECORDS SUMMARY | 2024-12-31 16:00 | XMS_ITS | Encounter Summary ---
Author Organization Healthcare Address [address] [place] [address] Care Team Providers Care Pullman Car Repairer Name Role Phone Avelino Salas MD Primary Care Provider + [phone] Encounter Details Date Type Department Care Team (Latest Contact Info) Description 12/02/2024 Travel Social History Tobacco Use Types Packs/Day Years [...] on file documented as of this encounter Functional Status * Over the past 2 weeks, how often have you been bothered by any of the following problems? Question Answer Date of Assessment Author Little interest or pleasure in doing things Nearly every day 12/02/2024 10:58 AM Jamie Quach Feeling down, depressed, or hopeless Nearly every day 12/02/2024 10:58 AM Jamie Quach Patient Health Questionnaire-2 Score 6 12/02/2024 10:58 AM ADAMAT Jamie Rodas * Question Answer Date of Assessment Author [...] Jamie Quach documented as of this encounter Plan of Treatment Upcoming Encounters Date Type Department Care Team (Late st Contact Info) Description 04/09/2025 4:00 PM EDT Office Visit [facility] [place] [address] [facility], [address] [place] [address] Jordan Hanson MD [address] [place] [address] 06/22/2025 4:00 PM EST Office Visit [facility] [address], [address] [place] [address] Elin Kelly MD [address] [place] [id number] documented as of this encounter Visit Diagnoses Not on filedocumented in this encounter Additional Health Concerns Infection [...] documented as of this encounter Care Teams Pullman Car Repairer Relationship Specialty Start Date End Date Avelino Salas MD [address] [place] [address] PCP - General 10/28/20 documented as of this encounter
--- OUTSIDE RECORDS SUMMARY | 2024-12-31 16:00 | XMS_ITS | Encounter Summary ---
Author Organization Healthcare Address [address] [place] [address] Care Team Providers Care District Extension Service Agent Name Role Phone Avelino Salas MD Primary Care Provider [phone] Encounter Details Date Type Department Care Team (Late Contact Info) Description 12/14/2024 Orders Only [facility] [address] [place] [address] Elin Kelly MD [address] [place] [phone] Social History Tobacco Use Types Packs/Day Years [...] on file documented as of this encounter Plan of Treatment Upcoming Encounters Date Type Department Care Team (Late Contact Info) Description 04/09/2025 4:00 PM EDT Office Visit [facility] [place] [address] [facility], [address] [place] [address] Jordan Hanson MD [address] [place] [address] 06/22/2025 4:00 PM EST [facility] Visit [facility] [address] [place] [address] Elin Kelly MD [address] [place] [address] documented as of this encounter Visit Diagnoses [...] documented as of this encounter Care Teams District Extension Service Agent Relationship Specialty Start Date End Date Avelino Salas MD [address] [place] [address] PCP - General 10/28/20 documented as of this encounter
--- OUTSIDE RECORDS SUMMARY | 2024-12-31 16:00 | XMS_ITS | Encounter Summary ---
Author Organization Healthcare Address [address] [place] [address] Care Team Providers Care Wrap Yarn Sorter Name Role Phone Avelino Salas MD Primary Care Provider + [phone] Encounter Details Date Type Department Care Team (Late st Contact Info) Description 12/02/2024 Results Follow-Up [facility] Medicine Specialties [address] [place] [address] Elin Kelly MD [address] [place] [phone] Social History Tobacco Use Types Packs/Day Years [...] Description 04/09/2025 4:00 PM EDT Office Visit [facility] [place] [address] [facility], [address] [place] [address] Jordan Hanson MD [address] [place] [address] [place] [phone] 06/22/2025 4:00 PM EST [facility] Visit [facility] [address] [place] [address] Elin Kelly MD [address] [place], [place] [phone] documented as of this encounter Visit Diagnoses Not on filedocumented in this encounter Additional Health Concerns Infection Onset Date Last Indicated Resolved Time MRSA Comment:Added from external infection. Source: [facility]. 11/21/2020 C. difficile 10/01/2024 10/01/2024 Assessment Noted Time PHQ-9 Depression Total Score: 22 025 10:58 AM EDT A fall risk assessment has been complete d for the patient 10/06/2024 2:45 PM EDT A Body Mass Index follow-up plan has been documented for the patient 12/04/2024 9:51 AM EDT documented as of this encounter Care Teams Wrap Yarn Sorter Relationship Specialty Start Date End Date Avelino Salas MD [address] [place] [address] PCP - General 10/28/20 documented as of this encounter
--- OUTSIDE RECORDS SUMMARY | 2024-12-31 16:00 | XMS_ITS | Encounter Summary ---
Author Organization [facility] Address [address] [place] [address] Care Team Providers Care Siene Maker Name Role Phone Avelino Salas MD Primary Care Provider + [phone] Encounter Details Date Type Department Care Team (Late st Contact Info) Description 12/02/2024 [facility]phone [facility] [address] [place] [phone] [place] [address] Social History Tobacco Use Types Packs/Day Years [...] hopeless Nearly every day 12/02/2024 10:58 AM EDT Jamie Rodas Patient Health Questionnaire-2 Score 6 12/02/2024 10:58 [...] as of this encounter Miscellaneous Notes * Telephone Encounter - Demetria Bowser - 12/02/2024 3:22 PM EDT Clinic pharmacy called They stated that the lactulose packets aren't covered by the insurance They're wondering if they can switch it to the powder - 15 ml 3 times a day documented in this encounter Plan of Treatment Upcoming Encounters Date Type Department Care Team (Late st Contact Info) Description 04/09/2025 4:00 PM EDT Office Visit [facility] [place] [address] [facility], [address] [place] [address] Jordan Hanson MD [address] [place] [address] 06/22/2025 4:00 PM EST [facility] [address] [place] [address] Elin Kelly MD [address] [place] [address] documented as of this encounter [...] documented as of this encounter Care Teams Siene Maker Relationship Specialty Start Date End Date Avelino Salas MD [address] [place] [address] PCP - General 10/28/20 documented as of this encounter
--- OUTSIDE RECORDS SUMMARY | 2024-12-31 16:00 | XMS_ITS | Encounter Summary ---
Author Organization Healthcare Address [address] [place] [address] Care Team Providers Care Precision Aircraft Structure Assembler Name Role Phone Avelino Salas MD Primary Care Provider [phone] Encounter Details Date Type Department Care Team (Late Contact Info) Description 12/04/2024 Orders Only [facility] [address] [place] [address] Elin Kelly MD [address] [place] [phone] Social History Tobacco Use Types Packs/Day Years [...] Description 04/09/2025 4:00 PM EDT Office Visit [facility] [place] [address] [facility], [address] [place] [address] Jordan Hanson MD [address] [place] [address] 06/22/2025 4:00 PM EST [facility] [address] [place] [address] Elin Kelly MD [address] [place] [address] documented as of this encounter [...] documented as of this encounter Care Teams Precision Aircraft Structure Assembler Relationship Specialty Start Date End Date Avelino Salas MD [address] [place] [address] PCP - General 10/28/20 documented as of this encounter
--- OUTSIDE RECORDS SUMMARY | 2024-12-31 16:00 | XMS_ITS | Referral Summary ---
Author Organization [facility] ([place], [place], [place], [place]) Address [address] [place] [address] Care Team Providers Care System Architect Name Role Phone Toshia Kline APRN Primary Care Provider + [phone] Allergies Active Allergy Reactions Criticality Noted Date Comments Acetaminophen 01/10/2021 Aripiprazole Itching,Other (See Comments) Medium 08/24/2015 Other Reaction(s): Other - please document in the comment field, Unknown - Patient states they do not know rxn details Citalopram Rash Low 03/02/2013 Other reaction(s): Unknown - Patient states they do not know rxn details Other Reaction(s): UNKNOWN, Unknown - Patient states they do not know rxn details Hydrocodone Anaphylaxis High 09/17/2020 Other Reaction(s): Unknown - Patient states they do not know rxn details Tolerated oxycodone and morphine at [facility] in September 2020. Hydrocodone-Acetaminoph en Other (See Comments) High 03/02/2013 Other reaction(s): edema Other Reaction(s): Other - please document in the comment field, Unknown - Patient states they do not know rxn details Ketorolac Other (See Comments) Low 10/09/2020 Pt states makes her feel like she is paralyzed . Pt states makes her feel like she is paralyzed . Losartan Low 09/17/2020 Other reaction(s): Unknown - Low Severity Other Reaction(s): Other - please document in the comment field, Unknown - Patient states they do not know rxn details Olanzapine Rash Low 09/17/2020 Other Reaction(s): Unknown - Patient states they do not know rxn details Quetiapine Other (See Comments),Rash Low 09/17/2020 Other Reaction(s): Other - please document in the comment field, Unknown - Patient states they do not know rxn details Sulfa (Sulfonamide Antibiotics) Itching,Other (See Comments) Medium 03/02/2013 Other Reaction(s): Other - please document in the comment field, Unknown - Patient states they do not know rxn details Tramadol Other (See Comments) Low 08/26/2018 Other reaction(s): Other (See Comments) Gets stiff and rigid per patient Other Reaction(s): Other - please document in the comment field, Unknown - Patient states they do not know rxn details Tolerated oxycodone and morphine at [facility] in September 2020. Gets stiff and rigid per patient Other reaction(s): Other (See Comments) Gets stiff and rigid per patient Zolpidem Other (See Comments) Low 10/18/2023 Shaky Other Reaction(s): Other - please document in the comment field Medications ALPRAZolam (XANAX) 1 MG tablet Take 1 tablet (1 mg total) by mouth 3 (three) times daily. 4 Active aspirin 81 MG chewable tablet Take 1 tablet (81 mg total) by mouth. Active busPIRone (BUSPAR) 10 MG tablet Take 2 tablets (20 mg total) by mouth 2 (two) times daily. 4 Active Accu-Chek Guide test strips Strp DIRECTED TO TEST THREE TIMES DAILY 4 Active clopidogreL (PLAVIX) 75 mg tablet Take 1 tablet (75 mg total) by mouth daily. 4 Active Jardiance 25 mg tablet Take 1 tablet (25 mg total) by mouth every morning. 4 Active glyBURIDE (DIABETA) 5 MG tablet Take 1 tablet (5 mg total) by mouth daily. 4 Active Vascepa 1 gram capsule Take 2 capsules (2 g total) by mouth 2 (two) times daily. 4 Active lamoTRIgine (LaMICtal) 100 MG tablet Take 1 tablet (100 mg total) by mouth 2 (two) times daily. 4 Active levothyroxine (SYNTHROID, LEVOTHROID) 137 MCG tablet Take 1 tablet (137 mcg total) by mouth daily. 4 Active ondansetron (ZOFRAN) 4 MG tablet Take 1 tablet (4 mg total) by mouth every 6 (six) hours as needed. 4 Active pantoprazole (PROTONIX) 40 MG tablet Take 1 tablet (40 mg total) by mouth daily. 4 Active potassium chloride SA (K-DUR,KLOR-CON- M) 20 MEQ tablet Take 1 tablet (20 mEq total) by mouth daily. 4 Active propranoloL (INDERAL LA) 160 mg 24 hr capsule Take 1 capsule (160 mg total) by mouth daily. 4 Active Motegrity 2 mg Tab Take 1 tablet (2 mg total) by mouth daily. 4 Active ranolazine (RANEXA) 500 MG 12 hr tablet Take 1 tablet (500 mg total) by mouth 2 (two) times daily. 4 Active rosuvastatin (CRESTOR) 40 MG tablet Take 1 tablet (40 mg total) by mouth daily. 4 Active venlafaxine (EFFEXOR-XR) 150 MG 24 hr capsule Take 1 capsule (150 mg total) by mouth daily. 4 Active Ibsrela 50 mg Tab Take by mouth. 4 Active cyanocobalamin (vitamin B-12) 100 MCG tablet Take 10 tablets (1,000 mcg total) by mouth. Active cholecalciferol (Vitamin D3) 25 mcg (1,000 unit) tablet Take 2 tablets (2,000 Units total) by mouth daily. Active magnesium oxide (MAG-OX) 400 mg (241.3 mg magnesium) tablet Take 1 tablet (400 mg total) by mouth 2 (two) times daily. Active DOMPERIDONE, BULK, MISC Take 1 tablet by mouth. Active nicotine (NICODERM CQ) 14 mg/24 hr patchIndications :Encounter for general adult medical examination without abnormal findings Apply 1 patch every day by transdermal route. Active albuterol HFA (VENTOLIN HFA) 90 mcg/actuation inhalerIndicatio ns:Encounter for general adult medical examination without abnormal findings Inhale 1 puff by mouth via inhaler every 6 (six) hours as needed. Active furosemide (LASIX) 20 MG tabletIndication s:Encounter for general adult medical examination without abnormal findings Take 1 tablet (20 mg total) by mouth 2 (two) times daily. Active dilTIAZem (CARDIZEM CD) 120 MG 24 hr capsuleIndicatio ns:Encounter for general adult medical examination without abnormal findings Take 1 capsule (120 mg total) by mouth daily. Active linaCLOtide (LINZESS) 290 mcg CapIndications:E ncounter for general adult medical examination without abnormal findings Take 1 capsule (290 mcg total) by mouth daily. Active pregabalin (LYRICA) 75 MG capsuleIndicatio ns:Encounter for general adult medical examination without abnormal findings Take 1 capsule (75 mg total) by mouth. Active rifAXIMin (XIFAXAN) 550 mg tabIndications:E ncounter for general adult medical examination without abnormal findings Take 1 tablet (550 mg total) by mouth. Active Active Problems Problem Noted Date Diagnosed Date Acute renal failure 04/20/2024 Chest pain, precordial 04/20/2024 Family history of ischemic heart disease (IHD) 1 06/20/2023 Dizziness 04/20/2024 Palpitations 04/20/2024 Renal insufficiency 04/20/2024 Tachycardia 04/20/2024 Angina at rest 04/20/2024 Typical angina 04/20/2024 CKD (chronic kidney disease) stage 3, GFR 30-59 ml/min 10/18/2023 10/18/2023 COPD (chronic obstructive pulmonary disease) 08/202310/18/2023 Diabetes mellitus 10/18/2023 10/18/2023 Diastolic CHF, chronic 10/18/2023 Encounter for general adult medical examination without abnormal findings 10/18/2023 10/18/2023 Presence of colostomy 10/18/2023 10/18/2023 Tobacco abuse 10/18/2023 10/18/2023 History of radiofrequency ab lation procedure for cardiac arrhythmia 10/18/2023 Numbness and tingling 10/04/2023 Insomnia, unspecified type 10/04/2023 PVC (premature ventricular contraction) 11/18/19 21 10/18/2023 Overview (10/18/2023): History of PVC ablation with 5 different pathways approximately 2000 at [facility]- data deficit 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 LVEF 65 to 70%. Essential hypertension 10/11/2020 Hyperlipidemia LDL goal <70 10/11/2020 05/08/2023 Social History Tobacco Use Types Packs/Day Years Used Date Smoking Tobacco: Every Day Cigarettes Smokeless Tobacco: Never Tobacco Cessation:Ready to Q uit: Not Asked; Counseling Given: Not Answered Alcohol Use Standard Drinks/Week Comments Not Currently 0 (1 standard drink = 0.6 oz pur e alcohol) Food Insecurity Answer Date Recorded Food run out past 12 months Not on file 08/16 Food did not last past 12 months Not on file 09/11/2023 Employment Answer Date Recorded Help finding and keeping a job Not on file 0 09/11/2023 Family and Community Support Answer Dominic e Recorded Help with Day to Day Activities Not on file 09/11/2023 Feeling Lonely or Isolated Not on file 09/10 Educational Attainment Answer Date Jose rded Speak language other than Nepali at home Not on file 09/11/2023 Want help with school or training Not on file 09/11/2023 Substance Use Answer Date Recorded Used prescription meds for non-medical reasons N ot on file 09/11/2023 Used illegal drugs past 12 months Not on file 09/11/2023 Comments Unknown Sex and Gender Information Value Date Recorded Sex Assigned at Not on file Legal Sex Female 4:16 PM CDT Gender Identity Not on file Sexual Orientation Not on file Last Filed Vital Signs Vital Sign Reading Time Taken Comments Blood Pressure 110/58 11/01/2023 10:46 AM EDT Pulse 71 11/01/2023 10:46 AM EDT Temperature - - Respiratory Rate 16 10/21/2023 10:08 AM EDT Oxygen Saturation 97% 10/21/2023 10:08 AM EDT Inhaled Oxygen Concentration - - Weight 62.6 kg (138 lb) 11/01/2023 10:46 AM EDT Height 149.9 cm (4' 11 ) 11/01/2023 10:46 AM EDT Body Mass Index 27.87 11/01/2023 10:46 AM EDT Plan of Treatment Not on file Procedures Procedure Name Priority Date/Time Associated Diagnosis Comments CT LUNG SCREENING INITIAL Routine 10/21/2023 9:54 AM EDT Cigarette smoker from Last 3 Months or Most Recently Relevant to Health Maintenance Results * CT Lung Screening Initial (10/21/2023 9:54 AM EDT) Anatomical Region Laterality Modality Chest, Lung Computed Tomogra phy (CT) 10/21/2023 11:2 0 AM EDT Impressions 10/21/2023 11:23 AM EDT Lung-RADS 2 S: Benign appearance or behavior: Stable right lower lobe pulmonary nodule. Nodules with a very low likelihood of becoming a clinically active cancer due to size or lack of growth. Continue annual screening with low-dose chest CT in 12 months. Probability of malignancy: <1%. Lung-RADS S: Other: Hepatosplenomegaly. Clinically significant or potentially clinically significant findings (non-lung cancer). Images reviewed, interpreted, and dictated by Dr. Chalino Padilla. Transcribed by Shakira Mata PA-C. Narrative 10/21/2023 11:[address] SCAN OF THE CHEST 10/21/2023 9:54 AM HISTORY: Screening CT. Current smoker with a 40 pack-year smoking history. COMPARISON: January 2017 PROCEDURE: Axial images were obtained from the lung apex to the mid abdomen by computed tomography. Low-dose protocol was utilized. The CTDI vol is 2.8 mGy. The DLP is 105 mGy*cm. This study was performed with techniques to keep radiation doses as low as reasonably achievable, (ALARA). Individualized dose reduction techniques using automated exposure control or adjustment of mA and/or kV according to the patient size were employed. FINDINGS: CHEST: There is no axillary adenopathy. There are calcified right paratracheal lymph nodes. Heart size is normal. There is a 5 mm right lower lobe pulmonary nodule, stable. There are calcified right upper lobe nodules noted. There is no pericardial or pleural effusion. Limited images of the upper abdomen demonstrate the liver to be lobulated enlarged. The spleen is enlarged. Yessica Nelson BUTTON RECLAIMER IM CT ORDERABLES Final Result from Last 3 Months or Most Recently Relevant to Health Maintenance Insurance MEDICAID [employer] [facility] MEDICARE PPO Care Teams System Architect Relationship Specialty Start Date End Date Toshia Kline APRN [address] [place] [address] PCP - General Nurse Practitioner 09/11/23
--- OUTSIDE RECORDS SUMMARY | 2024-12-31 16:00 | XMS_ITS | Encounter Summary ---
Author Organization [facility] Address [address] [place] [address] Care Team Providers Care Intensive Care Ambulance Paramedic Name Role Phone Avelino Salas MD Primary Care Provider [phone] Reason for Referral * Consultation (Routine) - Closed Specialty Diagnoses / Procedures Referred By Contac t Referred To Contact Cardiology Diagnoses Atherosclerosis of habematolel coronary artery of habematolel heart without angina pectoris Toshia Kline PHOTOGRAPHIC MACHINE OPERATOR [address] [id number] Phone: tel: fax: Referral ID Status Reason Start Date Expiration Date V isits Requested Visits Authorized [id number] Closed Specialty Services Required 07/10/2024 01/09/2026 1 1 Encounter Details Date Type Department Care Team (Latest Contact Info) Description 07/10/2024 Community [facility] [address] [place] [address] Toshia Kline, PHOTOGRAPHIC MACHINE OPERATOR [address] [address] Atherosclerosis of habematolel coronary artery of habematolel heart without angina pectoris (Primary Dx) Social History Tobacco Use Types Packs/Day Years Used Date Smoking Tobacco: Every Day Cigarettes Passive Smoke Exposure: Current Smokeless Tobacco: Never Alcohol Use Standard Drinks/Week Comments No 0 (1 standard drink = 0.6 oz pur e alcohol) PHQ-2 Answer Date Recorded Patient Health Questionnaire-2 Score 2 05/12/2024 PHQ-9 Answer Date Recorded Patient Health Questionnaire-9 Score 2 05/12/2024 Comments No Sex and Gender Information Value Date Recorded Sex Assigned at Not on file Legal Sex Female 8:46 PM EDT Gender Identity Not on file Sexual Orientation Not on file documented as of this encounter Plan of Treatment Upcoming Encounters Date Type Department Care Team (Late st Contact Info) Description 04/09/2025 4:00 PM EDT Office Visit [facility] [place] [address], [address] [place] [address] Jordan Hanson MD [address] [place] [address] 06/22/2025 4:00 PM EST Office Visit [facility] [address] [place] [address] Elin Kelly MD [address] [place] [address] Scheduled Referrals Name Type Priority Associated Diagnoses Order Schedule Ambulatory referral to Cardiology Outpatient Referral Routine Atherosclerosis of habematolel 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 Source: [facility]. 11/21/2020 C. difficile 10/01/2024 10/01/2024 Assessment Noted Time PHQ-9 Depression Total Score: 2 05/12/20 24 1:35 PM EST A fall risk assessment has been complete d for the patient 05/12/2024 1:37 PM EST A Body Mass Index follow-up plan has been documented for the patient 05/12/2024 3:21 PM EST documented as of this encounter Care Teams Intensive Care Ambulance Paramedic Relationship Specialty Start Date End Date Avelino Salas MD [address] [place] [address] PCP - General 5/14/21 documented as of this encounter
--- OUTSIDE RECORDS SUMMARY | 2024-12-31 16:01 | XMS_ITS | Clinical Summary ---
Author Organization [facility] Address [address] [place] [address] Care Team Providers Care Nurse Emergency Name Role Phone Avelino Salas MD Primary Care Provider + [phone] Allergies Active Allergy Reactions Criticality Noted Date Comments Lorazepam Other - please document in the comment field Low 05/12/2024 Patient states she was having a bad reaction Hydrocodone Anaphylaxis,Unknown - Patient states they do not know rxn details High 09/17/2020 Tolerated oxycodone and morphine at [facility] in September 2020. Other Reaction(s): Unknown - Patient states they do not know rxn details Tolerated oxycodone and morphine at [facility] in September 2020. Hydrocodone-Acetaminop hen Other - please document in the comment field,Unknown - Patient states they do not know rxn details High 03/02/2013 Other reaction(s): edema Other reaction(s): edema Other Reaction(s): Other - please document in the comment field, Unknown - Patient states they do not know rxn details Other Anaphylaxis High 05/12/2024 Ketorolac Tromethamine Other - please document in the comment field Low 12/02/2024 Pt reported it made her feel stiff and hurt Tramadol Other - please document in the comment field,Unknown - Patient states they do not know rxn details Low 08/26/2018 Tolerated oxycodone and morphine at [facility] in September 2020. Gets stiff and rigid per patient Other reaction(s): Other (See Comments) Gets stiff and rigid per patient Other reaction(s): Other (See Comments) Gets stiff and rigid per patient Other Reaction(s): Other - please document in the comment field, Unknown - Patient states they do not know rxn details Tolerated oxycodone and morphine at [facility] in September 2020. Gets stiff and rigid per patient Other reaction(s): Other (See Comments) Gets stiff and rigid per patient Medications aspirin 81 MG EC tablet Take 1 tablet by mouth 1 time each day. Active cholecalciferol (Vitamin D3) 25 MCG (1000 UT) tablet Take 2 tablets by mouth 1 time each day. Active dilTIAZem CD (Cardizem CD) 120 MG 24 hr capsule Take 1 capsule by mouth daily. Active Jardiance 25 MG Take 1 tablet by mouth daily. Active Vascepa 1 g capsule Take 2 capsules by mouth 2 times a day. Active lamoTRIgine (LaMICtal) 100 MG tablet Take 1 tablet by mouth twice a day. Active linaCLOtide (Linzess) 290 MCG capsule Take 1 capsule by mouth daily before breakfast. Active magnesium oxide (Mag-Ox) 400 (240 Mg) MG tablet Take 1 tablet by mouth twice a day. Active potassium chloride CR (Klor-Con M20) 20 MEQ ER tablet Take 1 tablet by mouth 2 times a day. Active ranolazine (Ranexa) 500 MG 12 hr tablet Take 1 tablet by mouth twice a day. Active rosuvastatin (Crestor) 20 MG tablet Take 1 tablet by mouth 1 time each day. Active venlafaxine XR (Effexor-XR) 150 MG 24 hr capsule Take 1 capsule by mouth 1 time each day. Active ALPRAZolam (Xanax) 1 MG tablet TAKE ONE TABLET BY MOUTH THREE TIMES DAILY MAY CAUSE DROWSINESS Active Accu-Chek Guide test strip DIRECTED TO TEST THREE TIMES DAILY Active pantoprazole (Protonix) 40 MG EC tablet Take 1 tablet by mouth daily. Active propranolol LA (Inderal LA) 160 MG 24 hr capsule Take 1 capsule by mouth daily. Active NON FORMULARY Take 10 mg by mouth 4 (four) times a day. Domperidone Active Alpha tocopherol (Vitamin E) 200 units capsule Take 1 capsule by mouth 1 time each day. Active FeroSul 325 (65 Fe) MG tablet Take 1 tablet by mouth 3 times a week. Active furosemide (Lasix) 20 MG tablet Take 1 tablet by mouth daily. Active Lantus SoloStar 100 UNIT/ML injection pen Inject 50 Units under the skin nightly. Active lactulose (Chronulac) 10 GM/15ML oral solution Take 30 mL by mouth 3 times a day. 2700 mL 3 Active levothyroxine (Synthroid, Levoxyl) 125 MCG tablet Take 1 tablet by mouth daily before breakfast. Active MELATONIN PO Take 1 tablet by mouth nightly. Active Simethicone (GAS-X PO) Take 1 tablet by mouth as needed. Active busPIRone (Buspar) 10 MG tablet Take 1 tablet by mouth 2 times a day. Active pregabalin (Lyrica) 75 MG capsule Take 1 capsule by mouth 2 times a day. Take 2 capsules by mouth in the morning. Then take once capsule by mouth in the evening. Active busPIRone (Buspar) 10 MG tablet Take 2 tablets by mouth twice a day. 2024 Discontinued cyanocobalamin 100 MCG tablet Take 10 tablets (1,000 mcg) by mouth 1 (one) time each day. 2024 Discontinued(E ntered in Error) esomeprazole (NexIUM) [address] capsule Take 1 capsule (20 mg) by mouth 1 (one) time each day. 2024 Discontinued(E ntered in Error) fenofibrate micronized (Lofibra) 134 MG capsule Take 1 capsule (134 mg) by mouth 1 (one) time each day. 019 2024 Discontinued(E ntered in Error) glyBURIDE (Diabeta) 5 MG tablet Take 1 tablet (5 mg) by mouth 1 (one) time each day. 023 2024 Discontinued(E ntered in Error) ondansetron (Zofran) 4 MG tablet Take 1 tablet by mouth every 6 hours as needed. 2024 Discontinued(E ntered in Error) Motegrity 2 MG tablet 023 2024 Discontinued(E ntered in Error) pregabalin (Lyrica) 75 MG capsule Take 1 capsule by mouth 3 times a day. Take 2 capsules by mouth in the morning. Then take once capsule by mouth in the evening. 024 2024 Discontinued levothyroxine (Synthroid, Levoxyl) 112 MCG tablet Take 1 tablet (112 mcg) by mouth 1 (one) time each day. 024 2024 Discontinued(E ntered in Error) rifAXIMin (Xifaxan) 550 MG tabletIndications :Hepatic Encephalopathy Take 1 tablet (550 mg) by mouth 2 (two) times a day. 60 tablet 1 024 2024 Discontinued(E ntered in Error) Tradjenta 5 MG tablet Take 1 tablet (5 mg) by mouth 1 (one) time each day. 024 2024 Discontinued(E ntered in Error) betamethasone dipropionate 0.05 % EX cream APPLY TOPICALLY TO THE AFFECTED AREA(S) TWICE DAILY DIRECTED 025 2024 Discontinued(E ntered in Error) lactulose (Kristalose) 10 g packet Take 1 packet by mouth 3 times a day. 90 packet 3 025 2024 Discontinued Active Problems Problem Noted Date Diagnosed Date Acute encephalopathy 12/24/2024 Debility 12/24/2024 Falls frequently 12/24/2024 Acute kidney injury superimposed on CKD 12/25/19 Cirrhosis 12/24/2024 Metabolic acidosis 12/24/2024 Mood disorder 12/24/2024 Altered mental status 12/24/2024 Thyroid disease 10/06/2024 Abdominal colic 10/01/2024 Anxiety 10/01/2024 Back pain 10/01/2024 Colon polyps 10/01/2024 Depression 10/01/2024 Diverticulitis 10/01/2024 Diverticulosis 10/01/2024 Epigastric pain 10/01/2024 Fibromyositis 10/01/2024 Functional dyspepsia 10/01/2024 Gastroesophageal reflux disease with esophagitis 10/01/2024 Arthritis 10/01/2024 Dysmotility of stomach 10/01/2024 Gastritis 10/01/2024 GERD (gastroesophageal reflux disease) Hepatitis 10/01/2024 Heart disease 10/01/2024 Hemorrhoids 10/01/2024 High cholesterol 10/01/2024 Irregular heart beat 10/01/2024 Irritable bowel syndrome with constipation 10/01 Kidney stones 10/01/2024 Nonspecific abnormal finding in stool contents 0 10/01/2024 Occlusion of coronary artery 10/01/2024 Rectocele 10/01/2024 Ulcerative colitis 10/01/2024 Acute renal failure 04/20/2024 Angina at rest 04/20/2024 Typical angina 04/20/2024 Chest pain, precordial 04/20/2024 Dizziness 04/20/2024 Palpitations 04/20/2024 Renal insufficiency 04/20/2024 Tachycardia 04/20/2024 CKD (chronic kidney disease) stage 3, GFR 30-59 ml/min 10/18/2023 COPD (chronic obstructive pulmonary disease) 08/2023 Diabetes mellitus 10/18/2023 Diastolic CHF, chronic 10/18/2023 Presence of colostomy 10/18/2023 Insomnia 10/04/2023 Numbness and tingling 10/04/2023 Condyloma acuminatum in female 01/08/2022 Tinea corporis 01/08/2022 Severe malnutrition 04/10/2021 Sepsis secondary to UTI 04/08/2021 PVC (premature ventricular contraction) 11/18/19 21 Overview (10/01/2024): History of PVC ablation with 5 different pathways approximately 2000 at [facility]- data deficit Essential hypertension 10/11/2020 Hyperlipidemia LDL goal <70 10/11/2020 Hypothyroidism (acquired) 10/11/2020 Coronary artery disease invo lving [place] coronary artery of [place] heart with unstable angina pectoris 10/11/2020 Overview (10/01/2024): Remote heart catheterization at [facility] with no intervention-data deficit Remote heart catheterization with stent placement x2 in 2018 at [facility]-data deficit CCS class III-IV anginal equivalent/NYHA class II SZYMANSKI symptoms 11/17/2020: LHC at [facility] for chest pain, patent proximal and distal LAD stents with minimal 10% ISR, RCA mid 20-30% luminal irregularities, circumflex minimal 10% luminal irregularities, LVEDP 13 mmHg. LVEF 65 to 70%. Abdominal wall cellulitis 10/08/2020 Chronic idiopathic constipation 08/28/2019 Gastroparesis 02/01/2012 Nonalcoholic steatohepatitis 02/01/2012 Encounters Date Type Department Care Team Description 12/24/2024 3:01 AM EDT - 12/25/2024 7:15 PM EDT Hospital Encounter [facility] [address] [place] [address] Veronika Mendez MD Myers, Kurt A, MD Altered mental status, unspecified altered mental status type (Primary Dx); Falls frequently; Physical debility; Other cirrhosis of liver (CMS/HCC); Hepatic encephalopathy (CMS/HCC); Polypharmacy Discharge Disposition: Home-Health Care [facility] 12/24/2024 Travel 12/14/2024 Orders Only [facility] [address] [place] [address] Elin Kelly MD 12/04/2024 Orders Only [facility] [address] [place] [address] Elin Kelly MD 12/02/2024 10:40 AM EDT Office Visit [facility] [address] [place] [address] Elin Kelly MD Other cirrhosis of liver (CMS/HCC) (Primary Dx) 12/02/2024 Results Follow-Up [facility] [address] [place] [address] Elin Kelly MD 12/02/2024 Telephone [facility] [address] [place] [address] Demetria Bowser 12/02/2024 Travel 10/06/2024 2:40 PM EDT Consult [facility] [place] [address], [address] [place] [address] Jordan Hanson MD Coronary artery disease involving [place] coronary artery of [place] heart without angina pectoris (Primary Dx); Essential hypertension; Mixed hyperlipidemia; Diabetes mellitus type II, non insulin dependent ([facility]/HCC) 10/06/2024 Travel from Last 3 Months Immunizations Immunization Administration Dates Next Due Influenza, injectable, quadrivalent 03/20/2018,1 07/07/2016 Influenza, injectable, quadrivalent, preservativ e free 05/11/2019 Influenza, recombinant, quad rivalent, injectable, preservative free 03/17/2020 Influenza, seasonal, injectable 05/28/2014 Pneumococcal Polysaccharide PPV23 03/17/2020, Tdap 12/07/2007 Family History Medical History Relation Name Comments Heart attack Mother Hypertension Other Heart disease Sister Relation Name Status Comments Mother Other Sister Social History Tobacco Use Types Packs/Day Years [...] Mass Index 30.09 12/24/2024 3:46 AM EDT Plan of Treatment Upcoming Encounters Date Type Department Care Team (Late st Contact Info) Description 04/09/2025 4:00 PM EDT Office Visit [facility] [place] [address], [address] [place] [address] Jordan Hanson MD [address] [place] [address] 06/22/2025 4:00 PM EST Office Visit [facility] [address] [place] [address] Elin Kelly MD [address] [place] [address] Health Maintenance Due Date Last Done Comments [facility]-HIV Screening 1964 [facility]-Medicare Annual Wellness (AWV) 1964 [facility]-/Child/Adol SDOH Screenings 1964 [id number] Vaccine (#1) 1969 Diabetes: Dental Exam 1974 [facility]- SDOH Screenings 1982 [facility]-Adult SDOH Screenings 1982 [facility]-Hepatitis A Vaccines (1 of 2 - Risk 2-dose series) 1983 [facility]-HPV/Cotest 1994 CT Colonography 2009 FIT-DNA 2009 FIT 2009 FOBT 2009 Sigmoidoscopy 2009 [facility]-Breast Cancer Screening 2014 [facility]-Lung Cancer Screening 2014 [facility]-Zoster Vaccines (1 of 2) 2014 [facility]-DTaP,Tdap,and Td Vaccines (2 - Td or Tdap) 12/06/2017 12/07/2007 [facility]-Pneumococcal Vaccine: 50+ Years (2 of 2 - PCV) 03/17/2021 03/17/2020, 05/11/2019 [facility]-RSV Vaccine: 60+ Years or (1 - Risk 60-74 years 1-dose series) 2024 Colonoscopy 11/26/2024 11/26/2014 [facility]-Colorectal Cancer Screening 11/26/2024 [facility]-Influenza Vaccine (#1) 02/15/202503/17, 05/11/2019, 03/20/2018, Additional history exists [facility]-Diabetes: Hemoglobin A1C 03/25/202503/2025, 11/17/2020, 11/17/2020, Additional history exists [facility]-Depression Screening 12/02/2025 12/02/2024, 11/15 [facility]-Cervical Cancer Screening 06/01/2027 [facility]-Pap Smear 06/01/2027 06/01/2024, 11/05/2022 [facility]-Hepatitis C Screening Completed 11/18/2020 [facility]-Obesity Intervention Completed 025, 12/02/2024, 10/06/2024, Additional history exists HPV Vaccines Aged Out No longer eligi ble based on patient's age to complete this topic [facility]-HIB Vaccines Aged Out No longer e ligible based on patient's age to complete this topic [facility]-IPV Vaccines Aged Out No longer e ligible based on patient's age to complete this topic [facility]-Rotavirus Vaccines Aged Out No lo nger eligible based on patient's age to complete this topic Procedures Procedure Name Priority Date/Time Associated Diagnosis Comments POCT GLUCOSE METER UNSOLICITED RESULTS Routine 12/25/2024 5:24 PM EDT POCT GLUCOSE METER UNSOLICITED RESULTS Routine 12/25/2024 11:22 AM EDT POCT GLUCOSE METER UNSOLICITED RESULTS Routine 12/25/2024 8:01 AM EDT POCT GLUCOSE METER UNSOLICITED RESULTS Routine 12/25/2024 5:29 AM EDT BASIC METABOLIC PANEL, PLASMA Routine 12/25/2024 3:42 AM EDT PHOSPHORUS, PLASMA Routine 12/25/2024 3: 42 AM EDT PROTHROMBIN TIME(PT) / INR Timed 12/25/2024 3:42 AM EDT HEPATIC FUNCTION PANEL Routine 3:42 AM EDT CBC WITH AUTO DIFFERENTIAL Routine 12/25/2024 3:42 AM EDT MAGNESIUM, PLASMA Routine 12/25/2024 3:4 2 AM EDT POCT GLUCOSE METER UNSOLICITED RESULTS Routine 12/25/2024 12:12 AM EDT POCT GLUCOSE METER UNSOLICITED RESULTS Routine 12/24/2024 9:55 PM EDT POCT GLUCOSE METER UNSOLICITED RESULTS Routine 12/24/2024 8:22 PM EDT US ABDOMEN DOPPLER LIMITED Routine 12/24/2024 7:16 PM EDT US ABDOMEN FOCUSED REGION Routine 12/24/2024 7:16 PM EDT POCT GLUCOSE METER UNSOLICITED RESULTS Routine 12/24/2024 5:55 PM EDT POCT GLUCOSE METER UNSOLICITED RESULTS Routine 12/24/2024 4:46 PM EDT FREE T4, PLASMA Add-On 12/24/2024 2:33 PM EDT TSH Add-On 12/24/2024 2:33 PM EDT FOLATE, SERUM Routine 12/24/2024 2:33 PM EDT VITAMIN B12, SERUM Routine 12/24/2024 2: 33 PM EDT VITAMIN D 25 HYDROXY Routine 12/24/2024 2:33 PM EDT RENAL FUNCTION PANEL, PLASMA Routine 12/24/2024 2:33 PM EDT POCT GLUCOSE METER UNSOLICITED RESULTS Routine 12/24/2024 11:43 AM EDT SEND BARBARA MESSAGE STAT 12/24/2024 8: 34 AM EDT URINALYSIS MICROSCOPIC FOR UA REFLEX STAT 12/24/2024 8:34 AM EDT URINE BISHOP PANEL STAT 12/24/2024 8:34 AM EDT URINALYSIS WITH REFLEX MICROSCOPIC STAT 12/24/2024 8:34 AM EDT URINALYSIS WITH REFLEX MICROSCOPIC AND CULTURE STAT 12/24/2024 8:34 AM EDT URINE CULTURE STAT 12/24/2024 8:34 AM EDT US RENAL COMPLETE Routine 12/24/2024 8:2 0 AM EDT TROPONIN T, HIGH SENSITIVITY, 2 HOUR, PLASMA Timed 12/24/2024 5:34 AM EDT XR ELBOW RIGHT 3+ VIEWS STAT 12/24/2024 4:47 AM EDT XR PELVIS 1 OR 2 VIEWS STAT 4:47 AM EDT XR CHEST 1 VIEW STAT 12/24/2024 4:[address] CERVICAL SPINE WO IV CONTRAST STAT 12/24/2024 4:[address] HEAD WO IV CONTRAST STAT 4:31 AM EDT HEMOGLOBIN A1C Add-On 12/24/2024 3:31 AM EDT AMMONIA, PLASMA STAT 12/24/2024 3:31 AM EDT TROPONIN T, HIGH SENSITIVITY, 0 HOUR, PLASMA, REFLEX TO 2 HOUR STAT 12/24/2024 3:31 AM EDT BLOOD GAS PANEL, VENOUS STAT 12/24/2024 3:31 AM EDT COMPREHENSIVE METABOLIC PANEL, PLASMA STAT 12/24/2024 3:31 AM EDT PROTHROMBIN TIME(PT) / INR STAT 12/24/2024 3:31 AM EDT CBC WITH AUTO DIFFERENTIAL STAT 12/24/2024 3:31 AM EDT ECG ADULT STAT 12/24/2024 3:16 AM EDT POCT GLUCOSE METER UNSOLICITED RESULTS Routine 12/24/2024 2:58 AM EDT CBC WITH AUTO DIFFERENTIAL Routine 12/02/2024 12:02 PM EDT Other cirrhosis of liver (CMS/HCC) COMPREHENSIVE METABOLIC PANEL, PLASMA Routine 12/02/2024 12:02 PM EDT Other cirrhosis of liver (CMS/HCC) PROTHROMBIN TIME(PT) / INR Routine 12/02/2024 12:02 PM EDT Other cirrhosis of liver (CMS/HCC) from Last 3 Months Results * (ABNORMAL) POCT glucose meter (12/25/2024 5:24 PM EDT) Only the most recent of11 resultswithin the time period is included. [facility] POCT Glucose 224(H) 74 - 99 mg/dL 12/25/2024 5:26 PM EDT [facility] Comment:Accuracy of [...] for testing. Comment 12/25/2024 5:26 PM EDT [facility] Whip Sawyer ID JahairaElvira travis 12/25/2024 5:26 PM EDT [facility] Device ID [id number] 12/25/2024 5:26 PM EDT [facility] Specimen Type POC Capillary 12/25/2024 5:26 PM EDT [facility] Blood Capillary blood specimen / Unknown 12/25/2024 5:24 PM EDT 12/25/2024 5:26 PM EDT us Prabhjot Mehta MD LAB POINT OF CARE TE ST DOCKED DEVICE UNSOLICITED RESULTS Final Result Performing Organization Address City/[facility]/ZIP Co de Phone Number [facility] [address] [place] [address] * (ABNORMAL) Protime-INR (12/25/2024 3:42 AM EDT) Only the most recent of3 resultswithin the time period is included. Prothrombin Time 15.2(H) 12.0 - 14.3 sec LAB COAGULATION METHOD 12/25/2024 4:12 AM EDT [facility] INR 1.2(H) 0.9 - 1.1 LAB COAGULATION METHOD 12/25/2024 4:12 AM EDT [facility] Blood Venous blood specimen / Unknown Venipuncture / Unknown 12/25/2024 3:42 AM EDT 12/25/2024 3:52 AM EDT Narrative [facility] - 12/25/2024 4:12 AM EDT OPTIMAL INR RANGES FOR PATIENT ON ORAL ANTICOAGULANT THERAPY Prevention of venous thromboembolism INR 2.0 to 3.0 In patients with heart disease: Atrial fibrillation INR 2.0 to 3.0 Valvular heart disease INR 2.0 to 3.0 Tissue heart valves INR 2.0 to 3.0 Mechanical prosthetic valves INR 2.5 to 3.5 Prevention of recurrent WA INR 2.5 to 3.5 us Prabhjot Mehta MD LAB BLOOD ORDERABLES Final Resul t [facility] [address] [place] [id number] * (ABNORMAL) CBC and Differential (12/25/2024 3:42 AM EDT) Only the most recent of3 resultswithin the time period is included. WBC Count 7.49 3.70 - 10.30 10*3/uL LAB HEMATOLOGY METHOD 12/25/2024 3:56 AM EDT [facility] RBC Count 5.25(H) 3.90 - 5.20 10*6/uL LAB HEMATOLOGY METHOD 12/25/2024 3:56 AM EDT [facility] HGB 14.8 11.2 - 15.7 g/dL LAB HEMATOLOGY METHOD 12/25/2024 3:56 AM EDT [facility] HCT 42.1 34.0 - 45.0 % LAB HEMATOLOGY METHOD 12/25/2024 3:56 AM EDT [facility] Platelet Count 94(L) 155 - 369 10*3/uL LAB HEMATOLOGY METHOD 12/25/2024 3:56 AM EDT [facility] MCV 80 79 - 98 fL LAB HEMATOLOGY METHOD 12/25/2024 3:56 AM EDT [facility] MCH 28.2 26.0 - 32.0 pg LAB HEMATOLOGY METHOD 12/25/2024 3:56 AM EDT [facility] MCHC 35.2 30.7 - 35.5 g/dL LAB HEMATOLOGY METHOD 12/25/2024 3:56 AM EDT [facility] RDW 16.9(H) 11.5 - 14.5 % LAB HEMATOLOGY METHOD 12/25/2024 3:56 AM EDT [facility] MPV 9.5 8.8 - 12.5 fL LAB HEMATOLOGY METHOD 12/25/2024 3:56 AM EDT [facility] nRBC 0.0 <=0.0 per 100 WBCs LAB HEMATOLOGY METHOD 12/25/2024 3:56 AM EDT [facility] Differential Type Automated LAB HEMATOLOGY METHOD 12/25/2024 3:56 AM EDT [facility] Neutrophils % 44 % LAB HEMATOLOGY METHOD 12/25/2024 3:56 AM EDT [facility] Lymphocytes % 44 % LAB HEMATOLOGY METHOD 12/25/2024 3:56 AM EDT [facility] Monocytes % 8 % LAB HEMATOLOGY METHOD 12/25/2024 3:56 AM EDT [facility] Eosinophils % 3 % LAB HEMATOLOGY METHOD 12/25/2024 3:56 AM EDT [facility] Basophils % 1 % LAB HEMATOLOGY METHOD 12/25/2024 3:56 AM EDT [facility] Immature Granulocytes % 0 % LAB HEMATOLOGY METHOD 12/25/2024 3:56 AM EDT [facility] Neutrophils Absolute 3.28 1.60 - 6.10 10*3/uL LAB HEMATOLOGY METHOD 12/25/2024 3:56 AM EDT [facility] Lymphocytes Absolute 3.26 1.20 - 3.90 10*3/uL LAB HEMATOLOGY METHOD 12/25/2024 3:56 AM EDT [facility] Monocytes Absolute 0.59 0.30 - 0.90 10*3/uL LAB HEMATOLOGY METHOD 12/25/2024 3:56 AM EDT [facility] Eosinophils Absolute 0.24 0.00 - 0.50 10*3/uL LAB HEMATOLOGY METHOD 12/25/2024 3:56 AM EDT [facility] Basophils Absolute 0.10 0.00 - 0.10 10*3/uL LAB HEMATOLOGY METHOD 12/25/2024 3:56 AM EDT [facility] Immature Granulocytes Absolute 0.02 0.00 - 0.06 10*3/uL LAB HEMATOLOGY METHOD 12/25/2024 3:56 AM EDT [facility] Blood Venous blood specimen / Unknown Venipuncture / Unknown 12/25/2024 3:42 AM EDT 12/25/2024 3:52 AM EDT Narrative [facility] - 12/25/2024 3:56 AM EDT Therapeutic decision making should be based on absolute values, rather than percentages. Prabhjot Mehta MD LAB BLOOD ORDERABLES Final Resul t [facility] [address] [place] [address] * Phosphorus, Plasma (12/25/2024 3:42 AM EDT) Phosphorus, Plasma 3.5 2.5 - 4.5 mg/dL 12/25/2024 4:47 AM EDT [facility] Blood Venous blood specimen / Unknown Venipuncture / Unknown 12/25/2024 3:42 AM EDT 12/25/2024 3:58 AM EDT us Prabhjot Mehta MD LAB BLOOD ORDERABLES Final Resul t Performing Organization Address City/[facility]/ZIP Co de Phone Number [facility] [address] [place] [address] * Magnesium, Plasma (12/25/2024 3:42 AM EDT) Magnesium, Plasma 2.3 1.9 - 2.4 mg/dL 12/25/2024 4:47 AM EDT [facility] Blood Venous blood specimen / Unknown Venipuncture / Unknown 12/25/2024 3:42 AM EDT 12/25/2024 3:58 AM EDT us Prabhjot Mehta MD LAB BLOOD ORDERABLES Final Resul t Performing Organization Address [facility] Co de Phone Number [facility] [address] [place] [address] * (ABNORMAL) Hepatic Function Panel (12/25/2024 3:42 AM EDT) [facility] Conjugated Bilirubin, Plasma <0.2 <=0.3 mg/dL 12/25/2024 4:47 AM EDT [facility] Alkaline Phosphatase, Plasma 203(H) 46 - 142 U/L 12/25/2024 4:47 AM EDT [facility] Total Bilirubin, Plasma 0.3 0.2 - 1.1 mg/dL 12/25/2024 4:47 AM EDT [facility] Albumin, Plasma 4.1 3.5 - 5.2 g/dL 12/25/2024 4:47 AM EDT [facility] Total Protein 7.8 6.3 - 7.9 g/dL 12/25/2024 4:47 AM EDT [facility] ALT, Plasma 33 10 - 35 U/L 12/25/2024 4:47 AM EDT [facility] AST, Plasma 48(H) 10 - 35 U/L 12/25/2024 4:47 AM EDT [facility] Comment:Hemolyzed, result ma y be falsely increased. Blood Venous blood specimen / Unknown Venipuncture / Unknown 12/25/2024 3:42 AM EDT 12/25/2024 3:58 AM EDT us Prabhjot Mehta MD LAB BLOOD ORDERABLES Final Resul t [facility] [address] [place] [address] * (ABNORMAL) Basic Metabolic Panel, Plasma (12/25/2024 3:42 AM EDT) Glucose, Plasma 193(H) 74 - 99 mg/dL 12/25/2024 4:47 AM EDT [facility] BUN, Plasma 53(H) 8 - 23 mg/dL 12/25/2024 4:47 AM EDT [facility] Creatinine, Plasma 1.37(H) 0.60 - 1.10 mg/dL 12/25/2024 4:47 AM EDT [facility] BUN/Creatinine Ratio 39 12/25/2024 4:47 AM EDT [facility] Sodium, Plasma 136 136 - 145 mmol/L 12/25/2024 4:47 AM EDT [facility] Potassium, Plasma 3.6 3.6 - 4.9 mmol/L 12/25/2024 4:47 AM EDT [facility] Chloride, Plasma 105 97 - 107 mmol/L 12/25/2024 4:47 AM EDT [facility] CO2, Plasma 17(L) 22 - 29 mmol/L 12/25/2024 4:47 AM EDT [facility] Anion Gap 14 6 - 16 mmol/L 12/25/2024 4:47 AM EDT [facility] Total Calcium, Plasma 9.4 8.9 - 10.2 mg/dL 12/25/2024 4:47 AM EDT [facility] eGFRcr 44.3 mL/min/1.7 3m*2 12/25/2024 4:47 AM EDT [facility] Comment:Reported eGFRcr in m L/min/1.73m2 is based the CKD-EPI 2020 equation that does not use a race coefficient. Blood Venous blood specimen / Unknown Venipuncture / Unknown 12/25/2024 3:42 AM EDT 12/25/2024 3:58 AM EDT us Prabhjot Mehta MD LAB BLOOD ORDERABLES Final Resul t [facility] [address] [place] [address] * US Abdomen Focused Region Other (12/24/2024 [...] US PROCEDURES Final Result * US Abdomen Doppler Limited (12/24/2024 7:16 [...] Carolina Hutton MD on 12/24/2024 7:50 PM Prabhjot Mehta MD IMG US PROCEDURES Final Result * Vitamin D 25 Hydroxy (12/24/2024 2:33 PM EDT) Vitamin D 25 Hydroxy 34.6 20.0 - 80.0 ng/mL 12/24/2024 4:05 PM EDT [facility] Blood Venous blood specimen / Unknown Venipuncture / Unknown 12/24/2024 2:33 PM EDT 12/24/2024 2:37 PM EDT Narrative [facility] - 12/24/2024 4:05 PM EDT Testing performed on [employer], standardized against NIST SRM [id number]. When testing [...] to 80 ng/mL Possible toxicity: >100 ng/mL us Prabhjot Mehta MD LAB BLOOD ORDERABLES Final Resul t [facility] [address] [place] [address] * (ABNORMAL) TSH (12/24/2024 2:33 PM EDT) Thyroid Stimulating Hormone, Plasma 0.31(L) 0.40 - 4.20 uIU/mL 12/24/2024 6:24 PM EDT [facility] Blood Venous blood specimen / Unknown Venipuncture / Unknown 12/24/2024 2:33 PM EDT 12/24/2024 2:37 PM EDT us Prabhjot Mehta MD LAB BLOOD ORDERABLES Final Resul t Performing Organization Address City/[facility]/ZIP Co de Phone Number [facility] [address] [place] [address] * T4, free (12/24/2024 2:33 PM EDT) Free T4, Plasma 1.5 0.8 - 1.7 ng/dL 12/24/2024 6:24 PM EDT [facility] Blood Venous blood specimen / Unknown Venipuncture / Unknown 12/24/2024 2:33 PM EDT 12/24/2024 2:37 PM EDT us Prabhjot Mehta MD LAB BLOOD ORDERABLES Final Resul t Performing Organization Address [facility] [place] [place] [address] * Folate, Serum (12/24/2024 2:33 PM EDT) Folate, Serum 7.4 >4.6 ng/mL 12/24/2024 4:02 PM EDT [facility] Blood Venous blood specimen / Unknown Venipuncture / Unknown 12/24/2024 2:33 PM EDT 12/24/2024 2:37 PM EDT us rPabhjot Mehta MD LAB BLOOD ORDERABLES Final Resul t Performing Organization Address City/[facility] Co de Phone Number [facility] [address] [place] [address] * Vitamin B12, Serum (12/24/2024 2:33 PM EDT) Vitamin B12, Serum 599 210 - 1,033 pg/mL 12/24/2024 4:02 PM EDT [facility] Blood Venous blood specimen / Unknown Venipuncture / Unknown 12/24/2024 2:33 PM EDT 12/24/2024 2:37 PM EDT Prabhjot Mehta MD LAB BLOOD ORDERABLES Final Resul t [facility] [address] [place] [address] * (ABNORMAL) Renal function panel (12/24/2024 2:33 PM EDT) Glucose, Plasma 296(H) 74 - 99 mg/dL 12/24/2024 2:56 PM EDT [facility] BUN, Plasma 64(H) 8 - 23 mg/dL 12/24/2024 2:56 PM EDT [facility] Creatinine, Plasma 1.60(H) 0.60 - 1.10 mg/dL 12/24/2024 2:56 PM EDT [facility] BUN/Creatinine Ratio 40 12/24/2024 2:56 PM EDT [facility] Sodium, Plasma 131(L) 136 - 145 mmol/L 12/24/2024 2:56 PM EDT [facility] Potassium, Plasma 3.6 3.6 - 4.9 mmol/L 12/24/2024 2:56 PM EDT [facility] Chloride, Plasma 104 97 - 107 mmol/L 12/24/2024 2:56 PM EDT [facility] CO2, Plasma 16(L) 22 - 29 mmol/L 12/24/2024 2:56 PM EDT [facility] Anion Gap 11 6 - 16 mmol/L 12/24/2024 2:56 PM EDT [facility] Total Calcium, Plasma 9.1 8.9 - 10.2 mg/dL 12/24/2024 2:56 PM EDT [facility] Phosphorus, Plasma 4.6(H) 2.5 - 4.5 mg/dL 12/24/2024 2:56 PM EDT [facility] Albumin, Plasma 4.4 3.5 - 5.2 g/dL 12/24/2024 2:56 PM EDT [facility] eGFRcr 36.8 mL/min/1.7 3m*2 12/24/2024 2:56 PM EDT [facility] Comment:Reported eGFRcr in m L/min/1.73m2 is based the CKD-EPI 2020 equation that does not use a race coefficient. Blood Venous blood specimen / Unknown Venipuncture / Unknown 12/24/2024 2:33 PM EDT 12/24/2024 2:37 PM EDT Prabhjot Mehta MD LAB BLOOD ORDERABLES Final Resul t Performing Organization Address City/[facility] Co de Phone Number [facility] [address] [place] [address] * SEND BARBARA MESSAGE (12/24/2024 8:34 AM EDT) Urine Urine specimen obtained by clean catch procedure / Unknown Non-blood Collection / Unknown 12/24/2024 8:34 AM EDT 12/24/2024 8:57 AM EDT Cedric Singh APRN LAB URINE ORDERABLES Fin al Result Performing Organization Address [facility] Co de Phone Number [facility] [address] [place] [address] * Urine Bishop Panel (12/24/2024 8:34 AM EDT) Extra Sent for Culture 12/24/2024 10:01 AM EDT [facility] Urine Urine specimen obtained by clean catch procedure / Unknown Non-blood Collection / Unknown 12/24/2024 8:34 AM EDT 12/24/2024 8:57 AM EDT Cedric Singh APRN LAB URINE ORDERABLES Fin al Result Performing Organization Address City/[facility] Co de Phone Number [facility] [address] [place] [address] * Urinalysis Microscopic Examination (12/24/2024 8:34 AM EDT) Urine Urine specimen obtained by clean catch procedure / Unknown Non-blood Collection / Unknown 12/24/2024 8:34 AM EDT 12/24/2024 8:36 AM EDT Cedric Singh APRN LAB URINE ORDERABLES Fin al Result [facility] [address] [place] [address] * (ABNORMAL) Urinalysis with reflex microscopic (Culture NOT Included) (12/24/2024 8:34 AM EDT) Color, Urine Yellow LAB URINALYSIS - AUTOMATED METHOD 12/24/2024 9:25 AM EDT [facility] Clarity, Urine Clear LAB URINALYSIS - AUTOMATED METHOD 12/24/2024 9:25 AM EDT [facility] Spec [place], Urine 1.024 1.005 - 1.030 LAB URINALYSIS - AUTOMATED METHOD 12/24/2024 9:25 AM EDT [facility] pH, Urine 6.0 5.0 - 8.0 LAB URINALYSIS - AUTOMATED METHOD 12/24/2024 9:25 AM EDT [facility] Protein, Urine 30(A) Negative mg/dL LAB URINALYSIS - AUTOMATED METHOD 12/24/2024 9:25 AM EDT [facility] Glucose, Urine 500(A) Negative mg/dL LAB URINALYSIS - AUTOMATED METHOD 12/24/2024 9:25 AM EDT [facility] Ketones, Urine Negative Negative mg/dL LAB URINALYSIS - AUTOMATED METHOD 12/24/2024 9:25 AM EDT [facility] Blood, Urine Negative Negative LAB URINALYSIS - AUTOMATED METHOD 12/24/2024 9:25 AM EDT [facility] Bilirubin, Urine Negative Negative LAB URINALYSIS - AUTOMATED METHOD 12/24/2024 9:25 AM EDT [facility] Urobilinogen, Urine 0.2 0.2 to 1.0 mg/dL LAB URINALYSIS - AUTOMATED METHOD 12/24/2024 9:25 AM EDT [facility] Leukocytes, Urine Trace(A) Negative LAB URINALYSIS - AUTOMATED METHOD 12/24/2024 9:25 AM EDT [facility] Nitrite, Urine Negative Negative LAB URINALYSIS - AUTOMATED METHOD 12/24/2024 9:25 AM EDT [facility] RBC, Urine 1 0 to 3 /HPF LAB URINALYSIS - AUTOMATED METHOD 12/24/2024 9:25 AM EDT [facility] Comment:This result was prev iously suppressed from the chart. WBC, Urine 11 - 20(A) 0 to 5 /HPF LAB URINALYSIS - AUTOMATED METHOD 12/24/2024 9:25 AM EDT [facility] Comment:This result was prev iously suppressed from the chart. Squamous Epithelial Cells 0 - 2 0 to 5 /HPF LAB URINALYSIS - AUTOMATED METHOD 12/24/2024 9:25 AM EDT [facility] Comment:This result was prev iously suppressed from the chart. Hyaline Casts 3 - 5 0 to 5 /LPF LAB URINALYSIS - AUTOMATED METHOD 12/24/2024 9:25 AM EDT [facility] Comment:This result was prev iously suppressed from the chart. Bacteria, Urine Negative Negative LAB URINALYSIS - AUTOMATED METHOD 12/24/2024 9:25 AM EDT [facility] Comment:This result was prev iously suppressed from the chart. Urine Urine specimen obtained by clean catch procedure / Unknown Non-blood Collection / Unknown 12/24/2024 8:34 AM EDT 12/24/2024 8:36 AM EDT Cedric Singh APRN LAB URINE ORDERABLES Fin al Result [facility] [address] [place] [address] * Urine Culture (12/24/2024 8:34 AM EDT) Culture <10,000 CFU/mL Mixed urogenital, fecal, or skin robbie present. 12/25/2024 9:24 AM EDT [facility] Urine Urine specimen obtained by clean catch procedure / Unknown Non-blood Collection / Unknown 12/24/2024 8:34 AM EDT 12/24/2024 8:57 AM EDT Cedric Singh APRN LAB MICROBIOLOGY - GENER AL ORDERABLES Final Result [facility] [address] [place] [address] * US Renal Complete (12/24/2024 8:20 AM EDT) Anatomical Region Laterality Modality Kidney Ultrasound Impressions 12/24/2024 8:53 AM EDT Unremarkable renal ultrasound. No hydronephrosis. CRITICAL RESULT: No. COMMUNICATION: Per this written report. Drafted by Christin Hoyt DO on 12/24/2024 8:50 AM Final report signed by Christin Hoyt DO on 12/24/2024 8:53 AM Narrative 12/24/2024 8:53 AM EDT CLINICAL INDICATION: catrachito TECHNIQUE: Multiplanar static and cine bishop scale [...] Christin Hoyt DO - 12/24/2024 CLINICAL INDICATION: catrachito TECHNIQUE: Multiplanar static and cine bishop scale [...] 12/24/2024 8:53 AM us Lokesh Arredondo APRN, [facility] IMG US PROCEDURES Final Result * (ABNORMAL) Troponin T, High Sensitivity, 2 Hour, Plasma (12/24/2024 5:34 AM EDT) Troponin T, High Sensitivity, 2 Hour 26(H) <14 ng/L 12/24/2024 6:11 AM EDT [facility] Troponin Delta 4 <10 ng/L 12/24/2024 6:11 AM EDT [facility] Troponin Delta Interpretation Not Significant 12/24/2024 6:11 AM EDT [facility] Comment:Not Significant. No acute change in troponin observed between the baseline and 2 hour samples. Blood Venous blood specimen / Unknown Venipuncture / Unknown 12/24/2024 5:34 AM EDT 12/24/2024 5:43 AM EDT Cedric Singh APRN LAB BLOOD ORDERABLES Fin al Result Performing Organization Address City/State/[facility] Co de Phone Number [facility] [address] [place] [address] * XR Pelvis 1 or 2 Views [...] written report. Preliminary report signed by Madeline Moer MD on 12/24/2024 5:28 AM By electronically signing this report, I, the attending physician, attestthat I have personally reviewed the images/data for the aboveexamination(s) and agree with the final edited report. Drafted by Madeline More MD on 12/24/2024 5:26 AM Final report signed by Pablo Willard MD on 12/24/2024 5:30 AM Cedric Singh APRN IMG XR PROCEDURES Final Result * [...] Pablo Willard MD on 12/24/2024 5:15 AM Cedric Singh APRN IMG XR PROCEDURES Final Result * XR Elbow Right 3+ View (12/24/2024 [...] Pablo Willard MD on 12/24/2024 5:25 AM us Cedric Singh APRN IMG XR PROCEDURES Final Result * CT Cervical [...] Total DLP (Dose-Length Product): 1130.25 mGy.cm (accession [id number]), 1130.25 mGy.cm (accession [id number]). Please note: The reported value represents the total of one or more individual components during the CT acquisition on this date and at this time, and as such, the same value may appear in more than one CT report depending on the interpreting/reporting physicians. COMPARISON: None. FINDINGS: CT scan of cervical spine: Limited [id number]. No acute fracture or traumatic subluxation. Straightening [...] Total DLP (Dose-Length Product): 1130.25 mGy.cm (accession [id number]),1130.25 mGy.cm (accession [id number]). Please note: The reported valuerepresents the total of one or more individual components during the CTacquisition on this date and at this time, and as such, the same value mayappear in more than one CT report depending on the interpreting/reportingphysicians. COMPARISON: None. FINDINGS: CT scan of cervical spine: Limited [id number]. No acute fracture ortraumatic subluxation. Straightening of [...] Pablo Willard MD on 12/24/2024 5:09 AM Cedric Singh APRN [facility] [place] PROCEDURES Edited Result - Final * [...] Total DLP (Dose-Length Product): 1130.25 mGy.cm (accession [id number]), 1130.25 mGy.cm (accession [id number]). Please note: The reported value represents the total of one or more individual components during the CT acquisition on this date and at this time, and as such, the same value may appear in more than one CT report depending on the interpreting/reporting physicians. COMPARISON: None. FINDINGS: CT scan of cervical spine: Limited uuiiix-jx-wgzvy. No acute fracture or traumatic subluxation. Straightening [...] Total DLP (Dose-Length Product): 1130.25 mGy.cm (accession [id number]),1130.25 mGy.cm (accession [id number]). Please note: The reported valuerepresents the total of one or more individual components during the CTacquisition on this date and at this time, and as such, the same value mayappear in more than one CT report depending on the interpreting/reportingphysicians. COMPARISON: None. FINDINGS: CT scan of cervical spine: Limited vjrqjk-et-atvqy. No acute fracture ortraumatic subluxation. Straightening of [...] Pablo Willard MD on 12/24/2024 5:09 AM Cedric Singh APRN IM CT PROCEDURES Edited Result - Final * (ABNORMAL) Troponin now and 120 min (12/24/2024 3:31 AM EDT) Troponin T, High Sensitivity, 0 Hour 30(H) <14 ng/L 12/24/2024 4:10 AM EDT [facility] Blood Venous blood specimen / Unknown Venipuncture / Unknown 12/24/2024 3:31 AM EDT 12/24/2024 3:41 AM EDT us Cedric Singh APRN LAB BLOOD ORDERABLES Fin al Result Performing Organization Address City/[facility]/ZIP Co de Phone Number [facility] [address] [place] [address] * (ABNORMAL) Hemoglobin A1c (12/24/2024 3:31 AM EDT) Hemoglobin A1c 8.4(H) <5.7 % 12/24/2024 11:34 PM EDT [facility] Blood Venous blood specimen / Unknown Venipuncture / Unknown 12/24/2024 3:31 AM EDT 12/24/2024 3:36 AM EDT Narrative [facility] - 12/24/2024 11:34 PM EDT HA1C Interpretive Data: Diagnosis of Diabetes: Diabetic > or = 6.5% Pre-diabetic 5.7 to 6.4% Non-diabetic < or = 5.6% Glycemic Targets for Type I and Type II Diabetics: Non- Adults <7.0% Adults <6.0% Children and Adolescents <7.5% Source: [place] [employer]. Standards of medical care in diabetes,2017. Diabetes Care.2017:40 (suppl 1):S1-S135. us Prabhjot Mehta MD LAB BLOOD ORDERABLES Final Resul t Performing Organization Address [facility]/ZIP Co de Phone Number [facility] [address] [place] [address] * (ABNORMAL) Blood gas panel, venous (12/24/2024 3:31 AM EDT) pH, Venous 7.26(L) 7.32 - 7.43 LAB HEMATOLOGY METHOD 12/24/2024 3:43 AM EDT [facility] pCO2, Venous 39 37 - 52 mmHg LAB HEMATOLOGY METHOD 12/24/2024 3:43 AM EDT [facility] pO2, Venous 64(H) 25 - 40 mmHg LAB HEMATOLOGY METHOD 12/24/2024 3:43 AM EDT [facility] SO2, Measured, Venous 91(H) 65 - 80 % LAB HEMATOLOGY METHOD 12/24/2024 3:43 AM EDT [facility] Base Excess, Venous -8.7(L) -2.0 - 3.0 mmol/L LAB HEMATOLOGY METHOD 12/24/2024 3:43 AM EDT [facility] Bicarbonate, Calculated, Venous 18(L) 22 - 26 mmol/L LAB HEMATOLOGY METHOD 12/24/2024 3:43 AM EDT [facility] Hematocrit, Whole Blood 47.7(H) 34.0 - 45.0 % LAB HEMATOLOGY METHOD 12/24/2024 3:43 AM EDT [facility] Sodium, Whole Blood 136 136 - 145 mmol/L LAB HEMATOLOGY METHOD 12/24/2024 3:43 AM EDT [facility] Potassium, Whole Blood 4.0 3.6 - 4.9 mmol/L LAB HEMATOLOGY METHOD 12/24/2024 3:43 AM EDT [facility] Chloride, Whole Blood 110(H) 97 - 107 mmol/L LAB HEMATOLOGY METHOD 12/24/2024 3:43 AM EDT [facility] Glucose, Whole Blood 147(H) 74 - 99 mg/dL LAB HEMATOLOGY METHOD 12/24/2024 3:43 AM EDT [facility] Lactate, Venous, Whole Blood 1.0 0.5 - 2.2 mmol/L LAB HEMATOLOGY METHOD 12/24/2024 3:43 AM EDT [facility] Ionized Calcium, Whole Blood 5.1 4.6 - 5.1 mg/dL LAB HEMATOLOGY METHOD 12/24/2024 3:43 AM EDT [facility] Blood Venous blood specimen / Unknown Venipuncture / Unknown 12/24/2024 3:31 AM EDT 12/24/2024 3:42 AM EDT Cedric Singh APRN LAB BLOOD ORDERABLES Fin al Result [facility] [address] [place] [address] * Ammonia (12/24/2024 3:31 AM EDT) Ammonia 46 11 - 51 umol/L 12/24/2024 4:16 AM EDT [facility] Blood Venous blood specimen / Unknown Venipuncture / Unknown 12/24/2024 3:31 AM EDT 12/24/2024 3:41 AM EDT Cedric Singh [employer] LAB BLOOD ORDERABLES Fin al Result [facility] [address] [place] [address] * (ABNORMAL) CMP (12/24/2024 3:31 AM EDT) Only the most recent of2 resultswithin the time period is included. Glucose, Plasma 146(H) 74 - 99 mg/dL 12/24/2024 4:10 AM EDT [facility] BUN, Plasma 70(H) 8 - 23 mg/dL 12/24/2024 4:10 AM EDT [facility] Creatinine, Plasma 1.73(H) 0.60 - 1.10 mg/dL 12/24/2024 4:10 AM EDT [facility] BUN/Creatinine Ratio 40 12/24/2024 4:10 AM EDT [facility] Sodium, Plasma 135(L) 136 - 145 mmol/L 12/24/2024 4:10 AM EDT [facility] Potassium, Plasma 4.1 3.6 - 4.9 mmol/L 12/24/2024 4:10 AM EDT [facility] Chloride, Plasma 104 97 - 107 mmol/L 12/24/2024 4:10 AM EDT [facility] CO2, Plasma 16(L) 22 - 29 mmol/L 12/24/2024 4:10 AM EDT [facility] Anion Gap 15 6 - 16 mmol/L 12/24/2024 4:10 AM EDT [facility] Total Calcium, Plasma 9.8 8.9 - 10.2 mg/dL 12/24/2024 4:10 AM EDT [facility] Total Protein 8.6(H) 6.3 - 7.9 g/dL 12/24/2024 4:10 AM EDT [facility] Albumin, Plasma 4.7 3.5 - 5.2 g/dL 12/24/2024 4:10 AM EDT [facility] AST, Plasma 38(H) 10 - 35 U/L 12/24/2024 4:10 AM EDT [facility] ALT, Plasma 32 10 - 35 U/L 12/24/2024 4:10 AM EDT [facility] Alkaline Phosphatase, Plasma 184(H) 46 - 142 U/L 12/24/2024 4:10 AM EDT [facility] Total Bilirubin, Plasma 0.4 0.2 - 1.1 mg/dL 12/24/2024 4:10 AM EDT [facility] eGFRcr 33.5 mL/min/1.7 3m*2 12/24/2024 4:10 AM EDT [facility] Comment:Reported eGFRcr in m L/min/1.73m2 is based the CKD-EPI 2020 equation that does not use a race coefficient. Blood Venous blood specimen / Unknown Venipuncture / Unknown 12/24/2024 3:31 AM EDT 12/24/2024 3:41 AM EDT Cedric Singh [employer] LAB BLOOD ORDERABLES Fin al Result [facility] [address] [place] [address] * EKG now - STAT (adult) (12/24/2024 3:16 AM EDT) EKG DIAGNOSIS CLASS Abnormal MUSE ECG Ventricular Rate 61 BPM MUSE ECG Atrial Rate 61 BPM MUSE ECG NV Interval 138 ms MUSE ECG QRSD Interval 98 ms MUSE ECG QT Interval 408 ms MUSE ECG QTC Interval 410 ms MUSE ECG P [place] 62 degrees MUSE ECG R [place] 18 degrees MUSE ECG T Wave [place] 106 degrees MUSE ECG Diagnosis Normal sinus rhythm MUSE ECG Diagnosis Possible Left atrial enlargement MUSE ECG Diagnosis Incomplete right bundle branch block MUSE ECG Diagnosis ST & T wave abnormality, consider lateral ischemia MUSE ECG Diagnosis Pulmonary disease pattern MUSE ECG Diagnosis Abnormal ECG MUSE ECG Diagnosis MUSE ECG Diagnosis Confirmed by Javed Zavaleta ([id number]) on 12/24/2024 11:34:46 AM MUSE ECG 12/24/2024 3:16 AM EDT 12/24/2024 11:34 AM EDT Cedric Singh [employer] ECG ORDERABLES Final Re sult MUSE ECG from Last 3 Months Additional Health Concerns Infection Onset Date Last Indicated MRSA Comment:Added from external infection. Source: [facility]. 11/21/2020 C. difficile 10/01/2024 10/01/2024 Insurance [phone] (Work) [address] [place] [id number] [place] MEDICARE Advance Directives * Full Code (Latest Code Status on File) Date Activated Date Inactivated Comments 12/24/2024 7:04 AM 12/25/2024 9:20 PM Question Answer Comments I have reviewed the capacity from the link above and, if needed, have updated to appropriate status: Yes Care Teams Nurse Emergency Relationship Specialty Start Date End Date Avelino Salas MD [address] [place] [id number] [facility] - General 10/28/20
--- OUTSIDE RECORDS SUMMARY | 2024-12-31 16:01 | XMS_ITS | Encounter Summary ---
Author Organization [employer] ([place], [place], [place], [place]) Address [address] [place] [address] Care Team Providers Care Haul Cane Brakeman Name Role Phone Toshia Kline APRN Primary Care Provider [phone] Reason for Referral * CAT Scan (Routine) - Closed Specialty Diagnoses / Procedures Referred By Contcaroline t Referred To Contact Radiology Diagnoses Cigarette smoker Procedures CT Lung Screening Initial Yessica Nelson APRN [address] [place] [address] Phone: tel: [facility] [address] [place] [address] Phone: tel: fax: Referral ID Status Reason Start Date Expiration Date Visits Re quested Visits Authorized [id number] Closed 10/07/2023 10/06/2024 1 1 Encounter Details Date Type Department Care Team (Late st Contact Info) Description 10/07/2023 Outside Orders [facility] [address] [place] [id number] Yessica Nelson APRN [address] [facility] [address] [place] [address] Cigarette smoker (Primary Dx) Social History Tobacco Use Types Packs/Day Years Used Date Smoking Tobacco: Every Day Cigarettes Smokeless Tobacco: Never Alcohol Use Standard Drinks/Week Comments Not Currently [...] Date Jose rded Speak language other than Russian at home Not on file 09/11/2023 Want [...] as of this encounter Plan of Treatment Not on file documented as of this encounter Results * CT Lung Screening Initial (10/21/2023 [...] enlarged. The spleen is enlarged. Yessica Nelson APRN IM CT ORDERABLES Final Result documented in this encounter Visit Diagnoses Diagnosis Cigarette smoker- Primary Tobacco use disorder Cigarette smoker Tobacco use disorder documented in this encounter Care Teams Ha[employer] Cane Brakeman Relationship Specialty Start Date End Date Toshia Kline APRN [address] [facility] [address] [place] [address] PCP - General Nurse Practitioner 09/11/23 documented as of this encounter
--- OUTSIDE RECORDS SUMMARY | 2024-12-31 16:01 | XMS_ITS | Encounter Summary ---
Author Organization [facility] Address [address] [place] [address] Care Team Providers Care Bleach Tester Name Role Phone Avelino Salas MD Primary Care Provider + [phone] Encounter Details Date Type Department Care Team (Latest Contact Info) Description 12/24/2024 Travel Social History Tobacco Use Types Packs/Day [...] Description 04/09/2025 4:00 PM EDT Office Visit [facility] [place] [address] [facility], [address] [place] [address] Jordan Hanson MD [address] [place] [address] 06/22/2025 4:00 PM EST Office [facility] [address], [address] [place] [address] Elin Kelly MD [address] [place] [address] documented as of this encounter Visit Diagnoses Not on filedocumented in this encounter Additional Health Concerns Infection Onset Date Last Indicated Resolved Time MRSA Comment:Added from external infection. Source: [facility]. 11/21/2020 C. difficile 10/01/2024 10/01/2024 Assessment Noted Time PHQ-9 Depression Total Score: 22 025 10:58 AM EDT A fall risk assessment has been complete d for the patient 10/06/2024 2:45 PM EDT A Body Mass Index follow-up plan has been documented for the patient 12/25/2024 6:56 PM EDT documented as of this encounter Care Teams Bleach Tester Relationship Specialty Start Date End Date Avelino Salas MD [address] [place] [address] PCP - General 10/28/20 documented as of this encounter
--- OUTSIDE RECORDS SUMMARY | 2024-12-31 16:01 | XMS_ITS | Encounter Summary ---
Author Organization [employer] ([place], [place], [place], [place]) Address [address] [place] [address] Care Team Providers Care Receiving Associate Name Role Phone Toshia Kline KAYLIN Primary Care Provider Encounter Details Date Type Department Care Team (Late st Contact Info) Description 10/08/2023 Telephone [facility] Neurology - [address] [address] Yessica Nelson APRN [address] [facility] [address] [place] [address] Social History Tobacco Use Types Packs/Day Years [...] Date Jose rded Speak language other than Italian at home Not on file 09/11/2023 Want [...] on file documented as of this encounter Visit Diagnoses Not on filedocumented in this encounter Care Teams Receiving Associate Relationship Specialty Start Date End Date Toshia Kline APRN [address] [place] [address] PCP - General Nurse Practitioner 09/11/23 documented as of this encounter
--- OUTSIDE RECORDS SUMMARY | 2024-12-31 16:01 | XMS_ITS | Encounter Summary ---
Author Organization [facility] Address [address] [place] [id number] Care Team Providers Care Professional Golf Tournament Player Name Role Phone Avelino Salas MD Primary Care Provider [phone] Reason for Referral * Consultation (Routine) - Authorized Specialty Diagnoses / Procedures Referred By Contact Referred To Contact Gastroenterology / Hepatology Diagnoses Hepatomegaly Toshia Kline, COLLEGE RECRUITER [address] [place] [address] Phone: tel: fax: Referral ID Status Reason Start Date Expiration Date Visits Requested Visits Authorized [id number] Authorized Specialty Services Required 11/20/2023 05/21/2025 1 1 Encounter Details Date Type Department Care Team (Latest Contact Info) Description 11/20/2023 [facility] [address] [place] [address] Toshia Kline, COLLEGE RECRUITER [address] [place] [address] Hepatomegaly (Primary Dx) Social History Tobacco Use Types Packs/Day Years Used Date Smoking Tobacco: Every Day Passive Smoke Exposure: Current Smokeless Tobacco: Never Alcohol Use Standard Drinks/Week Comments No 0 (1 standard drink = 0.6 oz pur e alcohol) PHQ-2 Answer Date Recorded Patient Health Questionnaire-2 Score 0 07/12/2023 Comments Unknown Sex and Gender Information Value Date Recorded Sex Assigned at Not on file Legal Sex Female 8:46 PM EDT Gender Identity Not on file Sexual Orientation Not on file documented as of this encounter Plan of Treatment Upcoming Encounters Date Type Department Care Team (Late st Contact Info) Description 04/09/2025 4:00 PM EDT Office Visit [facility] [place] [address] [facility], [address] [place] [address] Jordan Hanson MD [address] [place] [address] 06/22/2025 4:00 PM EST Office Visit [place] [facility] [address] [place] [address] Elin Kelly MD [address] [place] [address] Scheduled Referrals Name Type Priority Associated Diagnoses Order Schedule Ambulatory referral to Gastroenterology Outpatient Referral Routine Hepatomegaly Ordered: 11/20/2023 documented as of this encounter Visit Diagnoses Diagnosis Hepatomegaly- Primary documented in this encounter Additional Health Concerns Infection Onset Date Last Indicated Resolved Time MRSA Comment:Added from external infection. Source: [facility]. 11/21/2020 C. difficile 10/01/2024 10/01/2024 Assessment Noted Time A fall risk assessment has been complete d for the patient 07/12/2023 11:26 AM EST A Body Mass Index follow-up plan has been documented for the patient 07/30/2023 2:44 PM EST documented as of this encounter Care Teams Professional Golf Tournament Player Relationship Specialty Start Date End Date Avelino Salas MD [address] [place] [address] PCP - General 10/28/20 documented as of this encounter
--- OUTSIDE RECORDS SUMMARY | 2024-12-31 16:01 | XMS_ITS | Encounter Summary ---
Author Organization Healthcare Address [address] [place] [address] Care Team Providers Care Mix Mill Tender Name Role Phone Avelino Salas MD Primary Care Provider + [phone] Encounter Details Date Type Department Care Team (Late Contact Info) Description 12/31/2023 Orders Only External Location [address] [place] [address] Provider, External Social History Tobacco Use Types Packs/Day Years [...] Description 04/09/2025 4:00 PM EDT Office Visit [facility] [place] [address] [facility], [address] [place] [address] Jordan Hanson MD [address] [place] [address] 06/22/2025 4:00 PM EST Office Visit [place] [facility] [address], [address] [place] [address] Elin Kelly MD [address] [place] [address] documented as of this encounter Procedures Procedure Name Priority Date/Time Associated Diagnosis Comments US OUTSIDE IMAGES 12/31/2023 3:35 PM EDT documented in this encounter Results * US OUTSIDE IMAGES (12/31/2023 3:35 PM EDT) Anatomical Region Laterality Modality Ultrasound 12/31/2023 3:35 PM EDT us External Provider IMG US PROCEDURES Final Result documented in this encounter Visit Diagnoses Not on filedocumented in this encounter Additional Health Concerns Infection Onset Date Last Indicated Resolved Time MRSA Comment:Added from external infection. Source: [facility]. 11/21/2020 C. difficile 10/01/2024 10/01/2024 Assessment Noted Time A fall risk assessment has been complete d for the patient 07/12/2023 11:26 AM EST A Body Mass Index follow-up plan has been documented for the patient 07/30/2023 2:44 PM EST documented as of this encounter Care Teams Mix Mill Tender Relationship Specialty Start Date End Date Avelino Salas MD [address] [place] [address] PCP - General 10/28/20 documented as of this encounter
--- OUTSIDE RECORDS SUMMARY | 2024-12-31 16:01 | XMS_ITS | Clinical Summary ---
Author Organization [employer] ([place], [place], [place], [place]) Address [address] [place] [address] Care Team Providers Care Slasher Tender Helper Name Role Phone Toshia Kline APRN Primary Care Provider + [phone] Allergies Active Allergy Reactions Criticality Noted Date [...] rxn details Tolerated oxycodone and morphine at [facility] in September 2020. Hydrocodone-Acetaminoph en Other (See [...] rxn details Tolerated oxycodone and morphine at [facility] in September 2020. Gets stiff and rigid [...] 5 different pathways approximately 2000 at [facility]- data deficit Coronary artery disease invo lving [place] coronary artery of [place] heart with unstable angina pectoris 10/11/2020 10/18/2023 Overview (10/18/2023): Remote heart catheterization at [facility] with no intervention-data deficit Remote heart catheterization with stent placement x2 in 2018 at [facility]-data deficit CCS class III-IV anginal equivalent/NYHA class II SZYMANSKI symptoms 11/17/2020: LHC at [facility] for chest pain, patent proximal and distal LAD stents with minimal 10% ISR, RCA mid 20-30% luminal irregularities, circumflex minimal 10% luminal irregularities, LVEDP 13 mmHg. LVEF 65 to 70%. Essential hypertension 10/11/2020 Hyperlipidemia LDL goal <70 10/11/2020 0508/2023 Family History Medical History Relation Name Comments Heart attack Mother Massive, age 36 Heart disease Mother Anxiety disorder Other Depression Other Diabetes Other Hyperlipidemia Other Migraines Other Heart disease Sister Relation Name Status Comments Father Mother (Age 41) Other Sister Social History Tobacco Use Types [...] Date Jose rded Speak language other than Estonian at home Not on file 09/11/2023 Want [...] 11/01/2023 10:46 AM EDT Plan of Treatment Health Maintenance Due Date Last Done Comments CT Colonography 1964 Colonoscopy 1964 Colorectal Cancer Screening 1964 Diabetic Kidney Health Evaluation (KED) 1964 FOBT/FIT 1964 Fit-DNA (Cologuard) 1964 Sigmoidoscopy 1964 Diabetic Eye Exam 1974 Depression Screening (12+) 1976 HIV Screening 1979 Hepatitis C Screening 1982 Breast Cancer Screening 2004 Shingles Vaccine (Zoster) (1 of 2) 2014 DTAP/TDAP/TD VACCINES (2 - Td or Tdap) 12/06/2017 Pneumococcal 50+ years (2 of 2 - PCV) 03/17/202106/2019, 05/11/2019 Medicare Initial AWV [id number] 11/16/2022 Hemoglobin A1C 10/18/2023 Lipid Panel 11/18/2023 11/17/2020 COVID-19 VACCINE (1 - season) 2024 Lung cancer screening 10/20/2024 10/21/2023 Tobacco Cessation Counseling and Screening (12+) 10/20/2024 10/21/2023 Influenza Vaccine (#1) 2025 03/17/2020 Pap Smear 11/05/2025 11/05/2022, 11/06/2021 Procedures Procedure Name Priority Date/Time Associated Diagnosis [...] lobulated enlarged. The spleen is enlarged. Yessica Leslie [address]PUTY COURT IMG CT ORDERABLES Final Result from Last 3 Months or Most Recently Relevant to Health Maintenance Insurance MEDICAID [employer] MEDIC[employer] PPO Care Teams Slasher Tender Helper Relationship Specialty Start Date End Date Toshia Kline APRN [address] [address] PCP - General Nurse Practitioner 09/11/23
[2024-12-31 16:07] LABS: Hematocrit 40.5 % (37.0-47.0); Hemoglobin 14.0 g/dL (12.2-16.2); Immature Granulocytes % 0.6 %; Mean Corpuscular HGB Conc 34.6 g/dL (31.8-35.4); Mean Corpuscular Hemoglobin 28.3 pg (27.0-31.2); Mean Corpuscular Volume 82.0 fl (81-99); Nucleated Red Blood Cells % 0 %; Platelet Count 94 K/mm3 (142-424); Red Blood Count 4.94 M/mm3 (4.20-5.40); Red Cell Distribution Width-SD 51.2 fL; White Blood Count 7.0 K/mm3 (4.8-10.8)
[2024-12-31 16:18] LABS: Alanine Aminotransferase 30 U/L (12-78); Albumin Level 4.3 g/dl (3.5-5.0); Albumin/Globulin Ratio 1.2 (1.1-1.8); Alkaline Phosphatase 141 U/L (38-126); Anion Gap 20.3 mEq/L (5-15); Aspartate Amino Transferase 57 U/L (14-36); Bilirubin,Total 0.8 mg/dl (0.2-1.3); Blood Urea Nitrogen 36 mg/dl (7-17); Calcium 9.3 mg/dl (8.4-10.2); Carbon Dioxide 19 mmol/L (22.0-30.0); Chloride 98 mmol/L (98-107); Creatinine Clearance Estimated 38 mL/min (50-200); Creatinine,Serum 1.50 mg/dl (0.52-1.04); Estimated Glomerular Filt Rate 35 ml/min (>60); GFR (African American) 43 ML/MIN (>60); Globulin 3.6 g/dL (1.3-3.2); Glucose 197 mg/dl (74-100); Potassium 3.3 mmoL/L (3.5-5.1); Sodium 134 mmol/L (136-145); Total Protein,Serum 7.9 g/dl (6.3-8.2)
[2024-12-31 16:30] VITALS: BP 112/50; PULSE 60; RESP 16
--- NOTE | 2024-12-31 16:44 | XR_ITS ---
PROCEDURE INFORMATION: Exam: XR Chest Exam date and time: 12/31/2024 4:45 PM Age: 59 years old Clinical indication: Condition or disease; Lung condition and disease; Copd TECHNIQUE: Imaging protocol: Radiologic exam of the chest. Views: 2 views. COMPARISON: CR XR CHEST 2V 08/21/2024 6:49 PM FINDINGS: Lungs: No acute airspace process. Calcified granuloma at the right lung apex. Pleural spaces: Unremarkable. No pleural effusion. No pneumothorax. Heart/Mediastinum: Calcified right paratracheal region lymph nodes. Bones/joints: Unremarkable. IMPRESSION: No acute findings.
== END 2024-12-31 16:37 | disposition home or self-care (01) ==
LOC: INF 15:58
PROVIDERS: PCP Nurse Practitioner Family; Visit Provider Nurse Practitioner Family
DX: N18.31 Chronic kidney disease, stage 3a (principal); K74.60 Unspecified cirrhosis of liver; J44.1 Chronic obstructive pulmonary disease with (acute) exacerbation
CPT/HCPCS: 71046; 80053; 85025; 96360; J7040

== ENCOUNTER 2025-01-19 13:26 | Outpatient (CLI) | payer MEDICARE, MEDICAID, SELFPAY ==
--- OUTSIDE RECORDS SUMMARY | 2024-12-02 10:40 | XMS_ITS | Encounter Summary ---
Author Organization [facility] Address [address] [place] [address] Care Team Providers Care Disbursing Agent Name Role Phone Avelino Salas MD Primary Care Provider + [phone] Reason for Referral * Consultation (Routine) - Authorized Specialty Diagnoses / Procedures Referred By Ko t Referred To Contact Diagnoses Other cirrhosis of liver (CMS/HCC) Lisa Alcaraz MD [address] [address] Phone: tel: fax: Referral ID Status Reason Start Date Expiration Date V isits Requested Visits Authorized [id number] Authorized 12/02/2024 06/03/2026 1 1 * Imaging (Routine) - Authorized Specialty Diagnoses / Procedures Referred By Contcaroline ruiz Referred To Contact Diagnoses Other cirrhosis of liver (CMS/HCC) Procedures US Liver Screen Lisa Alcaraz MD [address] [facility] [address] [place] [address] Phone: tel: fax: Referral ID Status Reason Start Date Expiration Date V isits Requested Visits Authorized [id number] Authorized 12/02/2024 06/03/2026 1 1 Reason for Visit * Reason Comments Non-alcoholic Fatty Liver Encounter Details Date Type Department Care Team (Genny Contact Info) Description 12/02/2024 10:40 AM EDT Office Visit [facility]ties [address] [place] [address] Elin Kelly MD [address] [place] [address] Other cirrhosis of liver (CMS/HCC) (Primary Dx) Social History Tobacco Use Types Packs/Day Years Used Date Smoking Tobacco: Every Day Cigarettes 1 42.6 Started: 1982 Passive Smoke Exposure: Current Smokeless [...] hopeless Nearly every day 12/02/2024 10:58 AM Jamei Quach Patient Health Questionnaire-2 Score 6 12/02/2024 [...] Last US Liver was in 04/2024 at [facility]. It showed fatty liver - no [...] Insecurity: No Food Insecurity (09/11/2023) Received from [facility] Food Insecurity Food run out past 12 months: Not on file Food did not last past 12 months: Not on file Transportation Needs: Not on file Physical Activity: Not on file Stress: Not on file Social Connections: Low Risk (09/11/2023) Received from [facility] Family and Community Support Help with Day to Day Activities: Not on file Feeling Lonely or Isolated: Not on file Intimate Partner Violence: Unknown (03/25/2023) Received from [facility] Abuse Screen Unsafe at Home or Work/School: Not on file Feels Threatened by Someone?: Not on file Does Anyone Keep You from Contacting Others or Doint Things Outside the Home?: Not on file Physical Sign of Abuse Present: Not on file Housing Stability: Low Risk (09/11/2023) Received from [facility] Housing Stability Living situation today: Not on file Living situation problems: Not on file Medications Ordered Prior to Encounter[4] Allergies[5] Health Maintenance Due Topic Date Due [facility]-Medicare Annual Wellness (AWV) Never done [facility]-HIV Screening Never done [id number] Vaccine (1) Never done Diabetes: Dental Exam [...] Laterality Date COLOSTOMY LITHOTRIPSY N/A lithotripsy from [facility] OTHER SURGICAL HISTORY N/A Liver Biopsy from [facility] OTHER SURGICAL HISTORY N/A ostomy from [facility] [4] Current Outpatient Medications on File Prior [...] Description 04/09/2025 4:00 PM EDT Office Visit [facility] [address], [address] [place] [id number] Jordan Hanson MD [address] [place] [address] 06/22/2025 4:00 PM EST Office Visit [facility] [address] [place] [address] Elni Kelly MD [address] [place] [address] Scheduled Orders Name Type Priority [...] LAB COAGULATION METHOD 12/02/2024 1:48 PM EDT [facility] INR 1.1 0.9 - 1.1 LAB COAGULATION METHOD 12/02/2024 1:48 PM EDT [facility] Blood Venous blood specimen / Unknown Venipuncture / Unknown 12/02/2024 12:02 PM EDT 12/02/2024 12:02 PM EDT Narrative [facility] - 12/02/2024 1:48 PM EDT OPTIMAL INR RANGES FOR PATIENT ON ORAL ANTICOAGULANT THERAPY Prevention of venous thromboembolism INR 2.0 to 3.0 In patients with heart disease: Atrial fibrillation INR 2.0 to 3.0 Valvular heart disease INR 2.0 to 3.0 Tissue heart valves INR 2.0 to 3.0 Mechanical prosthetic valves INR 2.5 to 3.5 Prevention of recurrent CO INR 2.5 to 3.5 us Lisa Alcaraz MD LAB BLOOD ORDERABLES Final Res ult [facility] [address] [place] [address] * (ABNORMAL) Comprehensive metabolic panel (12/02/2024 12:02 PM EDT) Glucose, Plasma 180(H) 74 - 99 mg/dL 12/02/2024 2:13 PM EDT [facility] BUN, Plasma 20 8 - 23 mg/dL 12/02/2024 2:13 PM EDT [facility] Creatinine, Plasma 1.21(H) 0.60 - 1.10 mg/dL 12/02/2024 2:13 PM EDT [facility] BUN/Creatinine Ratio 17 12/02/2024 2:13 PM EDT [facility] Sodium, Plasma 139 136 - 145 mmol/L 12/02/2024 2:13 PM EDT [facility] Potassium, Plasma 4.1 3.6 - 4.9 mmol/L 12/02/2024 2:13 PM EDT [facility] Chloride, Plasma 101 97 - 107 mmol/L 12/02/2024 2:13 PM EDT [facility] CO2, Plasma 26 22 - 29 mmol/L 12/02/2024 2:13 PM EDT [facility] Anion Gap 12 6 - 16 mmol/L 12/02/2024 2:13 PM EDT [facility] Total Calcium, Plasma 8.7(L) 8.9 - 10.2 mg/dL 12/02/2024 2:13 PM EDT [facility] Total Protein 7.5 6.3 - 7.9 g/dL 12/02/2024 2:13 PM EDT [facility] Albumin, Plasma 4.4 3.5 - 5.2 g/dL 12/02/2024 2:13 PM EDT [facility] AST, Plasma 26 10 - 35 U/L 12/02/2024 2:13 PM EDT [facility] ALT, Plasma 19 10 - 35 U/L 12/02/2024 2:13 PM EDT [facility] Alkaline Phosphatase, Plasma 170(H) 46 - 142 U/L 12/02/2024 2:13 PM EDT [facility] Total Bilirubin, Plasma 0.3 0.2 - 1.1 mg/dL 12/02/2024 2:13 PM EDT [facility] eGFRcr 51.4 mL/min/1.7 3m*2 12/02/2024 2:13 PM EDT [facility] Comment:Reported eGFRcr in m L/min/1.73m2 is based the CKD-EPI 2020 equation that does not use a race coefficient. Blood Venous blood specimen / Unknown Venipuncture / Unknown 12/02/2024 12:02 PM EDT 12/02/2024 12:02 PM EDT us Lisa Alcaraz MD LAB BLOOD ORDERABLES Final Res ult [facility] [address] [place] [address] * (ABNORMAL) CBC and differential (12/02/2024 12:02 PM EDT) WBC Count 6.36 3.70 - 10.30 10*3/uL LAB HEMATOLOGY METHOD 12/02/2024 4:00 PM EDT [facility] RBC Count 5.02 3.90 - 5.20 10*6/uL LAB HEMATOLOGY METHOD 12/02/2024 4:00 PM EDT [facility] HGB 13.5 11.2 - 15.7 g/dL LAB HEMATOLOGY METHOD 12/02/2024 4:00 PM EDT [facility] HCT 41.5 34.0 - 45.0 % LAB HEMATOLOGY METHOD 12/02/2024 4:00 PM EDT [facility] Platelet Count 84(L) 155 - 369 10*3/uL LAB HEMATOLOGY METHOD 12/02/2024 4:00 PM EDT [facility] MCV 83 79 - 98 fL LAB HEMATOLOGY METHOD 12/02/2024 4:00 PM EDT [facility] MCH 26.9 26.0 - 32.0 pg LAB HEMATOLOGY METHOD 12/02/2024 4:00 PM EDT [facility] MCHC 32.5 30.7 - 35.5 g/dL LAB HEMATOLOGY METHOD 12/02/2024 4:00 PM EDT [facility] RDW 19.5(H) 11.5 - 14.5 % LAB HEMATOLOGY METHOD 12/02/2024 4:00 PM EDT [facility] MPV 9.4 8.8 - 12.5 fL LAB HEMATOLOGY METHOD 12/02/2024 4:00 PM EDT [facility] nRBC 0.0 <=0.0 per 100 WBCs LAB HEMATOLOGY METHOD 12/02/2024 4:00 PM EDT [facility] Differential Type Automated LAB HEMATOLOGY METHOD 12/02/2024 4:00 PM EDT [facility] Neutrophils % 50 % LAB HEMATOLOGY METHOD 12/02/2024 4:00 PM EDT [facility] Lymphocytes % 37 % LAB HEMATOLOGY METHOD 12/02/2024 4:00 PM EDT [facility] Monocytes % 7 % LAB HEMATOLOGY METHOD 12/02/2024 4:00 PM EDT [facility] Eosinophils % 4 % LAB HEMATOLOGY METHOD 12/02/2024 4:00 PM EDT [facility] Basophils % 1 % LAB HEMATOLOGY METHOD 12/02/2024 4:00 PM EDT [facility] Immature Granulocytes % 1 % LAB HEMATOLOGY METHOD 12/02/2024 4:00 PM EDT [facility] Neutrophils Absolute 3.17 1.60 - 6.10 10*3/uL LAB HEMATOLOGY METHOD 12/02/2024 4:00 PM EDT [facility] Lymphocytes Absolute 2.36 1.20 - 3.90 10*3/uL LAB HEMATOLOGY METHOD 12/02/2024 4:00 PM EDT [facility] Monocytes Absolute 0.44 0.30 - 0.90 10*3/uL LAB HEMATOLOGY METHOD 12/02/2024 4:00 PM EDT [facility] Eosinophils Absolute 0.25 0.00 - 0.50 10*3/uL LAB HEMATOLOGY METHOD 12/02/2024 4:00 PM EDT [facility] Basophils Absolute 0.08 0.00 - 0.10 10*3/uL LAB HEMATOLOGY METHOD 12/02/2024 4:00 PM EDT [facility] Immature Granulocytes Absolute 0.06 0.00 - 0.06 10*3/uL LAB HEMATOLOGY METHOD 12/02/2024 4:00 PM EDT [facility] Blood Venous blood specimen / Unknown Venipuncture / Unknown 12/02/2024 12:02 PM EDT 12/02/2024 12:02 PM EDT Narrative [facility] - 12/02/2024 4:00 PM EDT Therapeutic decision making should be based on absolute values, rather than percentages. us Lisa Alcaraz MD LAB BLOOD ORDERABLES Final Res ult [facility] [address] [place] [address] documented in this encounter Visit Diagnoses Diagnosis [...] documented as of this encounter Care Teams Disbursing Agent Relationship Specialty Start Date End Date Avelino Salas MD [address] [place] [address] PCP - General 10/28/20 documented as of this encounter
--- OUTSIDE RECORDS SUMMARY | 2024-12-24 03:01 | XMS_ITS | Encounter Summary ---
Author Organization Healthcare Address [address] [place] [address] Care Team Providers Care Agricultural Chemist Name Role Phone Avelino Salas MD Primary Care Provider + [phone] Reason for Referral * Consultation (Routine) - Authorized Specialty Diagnoses / Procedures Referred By Ko ruiz Referred To Contact Family Medicine Diagnoses Other cirrhosis of liver (CMS/HCC) Polypharmacy Prabhjot Mehta MD [address] [place] [address] Phone: tel: fax: Referral ID Status Reason Start Date Expiration Date V isits Requested Visits Authorized [id number] Authorized 12/25/2024 06/26/2026 1 1 Reason for Visit * Reason Comments Altered Mental Status * Auth/Cert (Routine) Specialty Diagnoses / Procedures Referred By Ko ruiz Referred To Contact Diagnoses Acute encephalopathy Veronika Mendez MD [address] [place] [address] Phone: tel: fax: [facility] [address] [place] [id number] Phone: tel: Referral ID Status Reason Start Date Expiration Date Visits Re quested Visits Authorized [id number] 1 1 Encounter Details Date Type Department Care Team (Latest Contact Info) Description 12/24/2024 3:01 AM EDT - 12/25/2024 7:15 PM EDT Hospital Encounter [facility] [address] [place] [address] Veronika Mendez MD [address] [place] [address] Prabhjot Mehta MD [address] [place] [address] Altered mental status, unspecified altered mental status type (Primary Dx); Falls frequently; Physical debility; Other cirrhosis of liver (CMS/HCC); Hepatic encephalopathy (CMS/HCC); Polypharmacy Discharge Disposition: Home-Health Care Svc Social History Tobacco Use Types Packs/Day Years Used Date Smoking Tobacco: Every Day Cigarettes 1 42.6 Started: 1982 Passive Smoke Exposure: Current Smokeless Tobacco: Never Alcohol Use Standard Drinks/Week Comments No 0 [...] Sign Reading Time Taken Comments Blood Pressure 122/69 12/25/2024 7:13 PM EDT Pulse 60 12/25/2024 7:13 PM EDT Temperature 36.3 C (97.4 F) 12/25/2024 7:13 PM EDT Respiratory Rate 18 12/25/2024 4:20 PM EDT Oxygen Saturation 95% 12/25/2024 7:13 PM EDT Inhaled Oxygen Concentration - - Weight 67.6 kg (149 lb) 12/24/2024 3:46 AM EDT Height 149.9 cm (4' 11 ) 12/24/2024 3:46 AM EDT Body Mass Index 30.09 12/24/2024 3:46 AM EDT documented in this encounter Medications at Time of Discharge Accu-Chek Guide test strip DIRECTED TO TEST THREE TIMES DAILY Alpha tocopherol (Vitamin E) 200 units capsule Take 1 capsule by mouth 1 time each day. ALPRAZolam (Xanax) 1 MG tablet TAKE ONE TABLET BY MOUTH THREE TIMES DAILY MAY CAUSE DROWSINESS aspirin 81 MG EC tablet Take 1 tablet by mouth 1 time each day. busPIRone (Buspar) 10 MG tablet Take 1 tablet by mouth 2 times a day. 12/25/2024 cholecalciferol (Vitamin D3) 25 MCG (1000 UT) tablet Take 2 tablets by mouth 1 time each day. dilTIAZem CD (Cardizem CD) 120 MG 24 hr capsule Take 1 capsule by mouth daily. 12/16/2022 FeroSul 325 (65 Fe) MG tablet Take 1 tablet by mouth 3 times a week. 08/31/2024 furosemide (Lasix) 20 MG tablet Take 1 tablet by mouth daily. 10/06/2024 Jardiance 25 MG Take 1 tablet by mouth daily. 02/13/2023 lactulose (Chronulac) 10 GM/15ML oral solution Take 30 mL by mouth 3 times a day. 2700 mL 3 12/04/2024 lamoTRIgine (LaMICtal) 100 MG tablet Take 1 tablet by mouth twice a day. 08/26/2018 Lantus SoloStar 100 UNIT/ML injection pen Inject 50 Units under the skin nightly. 10/06/2024 levothyroxine (Synthroid, Levoxyl) 125 MCG tablet Take 1 tablet by mouth daily before breakfast. linaCLOtide (Linzess) 290 MCG capsule Take 1 capsule by mouth daily before breakfast. 08/26/2018 magnesium oxide (Mag-Ox) 400 (240 Mg) MG tablet Take 1 tablet by mouth twice a day. MELATONIN PO Take 1 tablet by mouth nightly. NON FORMULARY Take 10 mg by mouth 4 (four) times a day. Domperidone pantoprazole (Protonix) 40 MG EC tablet Take 1 tablet by mouth daily. potassium chloride CR (Klor-Con M20) 20 MEQ ER tablet Take 1 tablet by mouth 2 times a day. pregabalin (Lyrica) 75 MG capsule Take 1 capsule by mouth 2 times a day. Take 2 capsules by mouth in the morning. Then take once capsule by mouth in the evening. 12/25/2024 propranolol LA (Inderal LA) 160 MG 24 hr capsule Take 1 capsule by mouth daily. ranolazine (Ranexa) 500 MG 12 hr tablet Take 1 tablet by mouth twice a day. 08/26/2018 rosuvastatin (Crestor) 20 MG tablet Take 1 tablet by mouth 1 time each day. Simethicone (GAS-X PO) Take 1 tablet by mouth as needed. Vascepa 1 g capsule Take 2 capsules by mouth 2 times a day. 02/13/2023 venlafaxine XR (Effexor-XR) 150 MG 24 hr capsule Take 1 capsule by mouth 1 time each day. 08/26/2018 documented as of this encounter Miscellaneous Notes * Discharge Summary - Prabhjot Mehta MD - 12/25/2024 6:37 PM EDT Images from the original note were not included. Hospitalization Admit Date/Time: 12/24/2024 3:01 AM Admitting Attending: Veronika Mendez Discharge Date: 12/25/24 Discharge Attending Physician: Prabhjot Mehta MD PCP name and Address: Avelino Salas MD [address] [facility] / [place] [id number] Referring provider name and address: No referring provider defined for this encounter. Chief Concern, Brief History of Present Illness, and Hospital Course 59F PMH MASH cirrhosis, CAD s/p stents (2017), PVCs s/p ablation (1999), HTN, HLD, T2DM, CKD2, COPDw/ nicotine dependence, chronic constipation s/p colostomy w/ revision, hypothyroidism, GERD fibromyalgia & bipolar disorder presented to [facility] ED overnight 12/23-03/2025 accompanied by adult daughter w/ increasing confusion x 3 weeks, multiple recent falls (unknown if head strikes or LOC) & ge neralized weakness. At admission, daughter reported patient had been non- adherent to outpatient lactulose. Exam in ED significant for chronically ill-appearing adult female w/ abnormal gait & coordination & right elbow abrasions. CBC showed minimal leukocytosis & mild thrombocytopenia. INR minimally elevated (1.2). Chemistry labs showed minimal hyponatremia, decreased serum bicarbonate, anion gap WNL, elevated Cr/decreased GFR, elevated BUN & mildly elevated ALP. Ammonia & lactate WNL. Troponin minimally elevated x 2 w/o significant delta. VBG showed decreased pH w/ pCO2 WNL & elevated pO2. UA w/ glucosuria, protein, trace leukocytes & pyuria w/o nitrite, bacteria or squamous cells. EKG NSR w/ incomplete RBBB. CT head & cervical spine negative acute intracranial abnormality & negative for acute fracture or traumatic subluxation of cervical spine. CXR negative for acute abnormality. XR elbow right negative for acute fracture or dislocation. XR pelvis negative for acute fracture. U/S renal unremarkable w/o evidence of hydronephrosis. Then admitted to hospital medicine for further management of acute encephalopathy suspected 2/2 hepatic encephalopathy from lactulose non-adherence & FLORENTIN. 12/24/2024: U/S abdomen showed patent hepatic vasculature w/ appropriate flow directionality & no ascites. PT/OT recommended acute rehab. 12/25/2024: Mental status improved (oriented to person, place & time & paritally context in AM). & labs showed improving renal function. PT/OT reassessed patient & recommended home w/ home health. In early evening patient's son came to bedside. At that time patient (AOx4 at that time) stated that she wished to discharge home. Hospitalist discussed w/ patient & son various risks/benefits of discharging at that time versus next day (further lactulose dosing & renal functionmonitoring to ensure further improvement in mental status & renal function). Patient ultimatelyelected to discharge home at that time as her daughter & PCP are close friends & communicate daily. As such, patient can have very close F/U to reassess lactulose dosing & renal function.Patient counseled on importance of taking lactulose daily w/ goal of 3-4 loose BMs daily (patient & son stated that patient has large supply of lactulose at home already). Patient instructed to hold furosemide (as well as several other medications detailed elsewhere in discharge summary) until able to have renal function rechecked & discussed w/ PCP. Patient & son voiced understanding& agreed. Patient then discharged home. LAST A&P OF ADMISSION 59F PMH MASH cirrhosis, CAD s/p stent (2018), PVCs s/p ablation (1999), HTN, HLD, T2DM, CKD2, COPD w/ nicotine dependence, chronic constipation s/p colostomy w/ revision, hypothyroidism, GERD fibromyalgia & bipolar disorder p/w increasing confusion x 3 weeks, multiple recent falls & generalized weakness in setting of not being adherent w/ lactulose & rifaximin found to have acute toxic metabolic encephalopathy 2/2 hepatic encephalopathy & polypharmacy in setting of FLORENTIN. Improvedw/ lactulose & aggressively addressing polypharmacy. #Acute Toxic Metabolic Encephalopathy (ATME) - Resolved #Polypharmacy -Mental status improving -Present at admission -Developed ~3 weeks prior to admission & progressively worsened subsequently -Suspect multifactorial etiology - DDX includes but not limited hepatic encephalopathy & polypharmacy in setting of FLORENTIN -No evidence indicative of significant infection currently -CT head (12/24/2024) negative acute intracranial abnormality -CXR (12/24/2024) negative for acute abnormality PLAN -Management of underlying/contributing etiologies as detailed elsewhere in A&P -Avoid/Decrease doses of centrally-acting medications as able -Delirium Precautions: -Delirium can persist for days, weeks, to months after precipitating incident regardless of treatment of underlying etiology, if identified. Recommend delirium precautions as follows: -While there is a black box warning for the use of antipsychotics in geriatric patients with MNCD, delirium is also associated w/ increased risk of all-cause mortality. Therefore, benefit of short-term anti-psychotic use outweighs risks & may be used for treatment of delirium when used judiciously. -Please enforce strict maintenance of sleep-wake cycle. Keep patient awake as able during daylight hours & please keep curtains open. At night dim lights, TV off if possible & minimize interruptions. Schedule Melatonin 3-6mg at bedtime, which has been shown to be beneficial in delirium & promote sleep cycle regularity. -Cluster care when possible at night including sleep-friendly vital signs (once overnight in early evening/bedtime) if safe/medically stable -Please minimize the use of restraints as restraints may worsen delirium -Provide frequent reorientation -Employ early & frequent mobility (especially during the day) including up to chair for meals -Ensure patient has access to glasses/hearing aids as needed -Maintain appropriate fluid and electrolyte levels, strict I/O monitoring as appropriate -Make comfort PRNs available for pain & constipation -Encourage presence of loved ones at bedside -Minimize use of deliriogenic medications including benzodiazepines, anticholinergics & antihistaminergics -Avoid concurrent use of IM Zyprexa and parenteral benzodiazepines as there is drug-drug interaction that increases risk for respiratory depression #Hepatic Encephalopathy #MASH Cirrhosis #Medication Non-Compliance MELD 3.0: 13 at 12/25/2024 3:42 AM MELD-Na: 13 at 12/25/2024 3:42 AM Calculated from: Serum Creatinine: 1.37 mg/dL at 12/25/2024 3:42 AM Serum Sodium: 136 mmol/L at 12/25/2024 3:42 AM Total Bilirubin: 0.3 mg/dL (Using min of 1 mg/dL) at 12/25/2024 3:42 AM Serum Albumin: 4.1 g/dL (Using max of 3.5 g/dL) at 12/25/2024 3:42 AM INR(ratio): 1.2 at 12/25/2024 3:42 AM Age at listing (hypothetical): 59 years Sex: Female at 12/25/2024 3:42 AM -Ascites: No -Hx of SBP: No -Esophageal Varices: No -EGD (04/29/2024): - Normal appearing esophagus w/o varices, mildly atrophic w/ erythematous mucosa& erosion & normal appearing duodenum -Hx of HE: Yes -Follows w/ [facility] - Last seen in clinic 12/02/2024 -Prescribed furosemide 20 mg daily w/ potassium chloride 20 mEq daily, lactulose 30 mL TID & propranolol -Per last GI clinic note (12/02/2024) patient was continued on rifaximin but appears that last prescription fill was 02/04/2024 -Per daughter, patient was NOT taking lactulose as prescribed & was NOT taking rifaximin at allprior to admission -Vitamin B12 & folate (12/24/2024) WNL -U/S abdomen (12/24/2024) showed patent hepatic vasculature w/ appropriate flow directionality &no ascites PLAN -Lactulose -Propranolol -Fluid restriction -Sodium restricted diet -Monitor electrolytes, renal function, LFTs & INR #Acute Kidney Injury (FLORENTIN)-on-CKD2 -Improving -Present at admission -Suspect likely prerenal -U/S renal (12/24/2024) unremarkable w/o evidence of hydronephrosis. -Appears baseline Cr ~0.9-1.0 & GFR 60s-70s -Estimated Creatinine Clearance: 38.8 mL/min (A) (by C-G formula based on SCr of 1.37 mg/dL (H)). PLAN -Hold furosemide until instructed to restarted by PCP -Monitor Cr/GFR -Monitor UOP -Avoid nephrotoxic agents as able -Renally dose medications as necessary #Multiple Recent Falls -Per daughter report - Unknown if head strikes or LOC -CT head & cervical spine (12/24/2024) negative acute intracranial abnormality & negative for acute fracture or traumatic subluxation of cervical spine -CXR (12/24/2024) negative for acute abnormality -XR elbow right (12/24/2024) negative for acute fracture or dislocation -XR pelvis (12/24/2024) negative for acute fracture -Vitamin D (12/24/2024) WNL PLAN -PT/OT -Fall precautions #T2DM -Glucose acutely uncontrolled -Glucose chronically uncontrolled (HbA1c = 8.4% on 12/24/2024) -Prescribed empagliflozin, linagliptin & glargine 50 units daily as outpatient PLAN -Glargine 30 units daily -SSI Lispro - Standard -Consistent carbohydrate diet -Restart glargine & linagliptin at discharge but continue to hold empagliflozin #COPD w/ Nicotine Dependence -Per chart review -Not in acute exacerbation currently -Does not appear to be prescribed inhalers as outpatient -No PFTs available in Epic PLAN -Albuterol-ipratropium -Nicotine replacement -Recommended outpatient PFTs #Chronic Constipation s/p Colostomy w/ Revision -Prescribed prucalopride succinate & linaclotide as outpatient PLAN -Hold antidiarrheal agents while restarting lactulose - Continue to hold until instructed to restart by PCP -Colostomy care #CAD s/p Stents #PVCs s/p Ablation -Appears stable -Per chart review, stent 2017 & PVC ablation 1999 -Prescribed ASA, rosuvastatin, ranolazine & propranolol as outpatient PLAN -ASA -Rosuvastatin -Ranolazine -Propranolol #HTN -BP controlled -Prescribed diltiazem as outpatient PLAN -Monitor clinically - Continue to hold until instructed to restarted by PCP #Hypothyroidism -TSH minimally decreased & FT4 (12/24/2024) WNL -Prescribed levothyroxine 125 mcg daily as outpatient PLAN -Levothyroxine #HLD -Prescribed rosuvastatin as outpatient PLAN -Rosuvastatin #GERD -Prescribed pantoprazole as outpatient PLAN -Pantoprazole #Fibromyalgia -Prescribed pregabalin 150 mg QAM & 75 MG QPM as outpatient but, daughter reported that PCP recently decreased dose to 75 BID PLAN -Pregabalin - Continue lower dose at discharge -Lidocaine patch #Bipolar Disorder #Anxiety #Chronic Outpatient Prescription Benzodiazepine Use -Prescribed buspirone, lamotrigine & venlafaxine as well as alprazolam 1 mg as outpatient but, daughter reported that PCP recently decreased buspirone to 10 mg BID PLAN -Buspirone - Continue lower dose at discharge -Lamotrigine - Monitor level -Venlafaxine -Alprazolam BID PRN (decreased from TID PRN as outpatient) #Diet: Regular, sodium restriction, fluid restriction #VTE Prophylaxis: This patient does not have an active medication from one of the medication groupers. #Disposition: TBD #Code Status: Full Code #Bowel Regimen: As detailed elsewhere in A&P Surgeries and Procedures Medication List PAUSE taking these medications dilTIAZem CD 120 MG 24 hr capsule Wait to take this until your doctor or other care provider tells you to start again. Commonly known as: Cardizem CD Take 1 capsule by mouth daily. furosemide 20 MG tablet Wait to take this until your doctor or other care provider tells you to start again. Commonly known as: Lasix Take 1 tablet by mouth daily. Jardiance 25 MG Wait to take this until your doctor or other care provider tells you to start again. Generic drug: empagliflozin Take 1 tablet by mouth daily. linaCLOtide 290 MCG capsule Wait to take this until your doctor or other care provider tells you to start again. Commonly known as: Linzess Take 1 capsule by mouth daily before breakfast. potassium chloride CR 20 MEQ ER tablet Wait to take this until your doctor or other care provider tells you to start again. Commonly known as: Klor-Con M20 Take 1 tablet by mouth 2 times a day. .. Accu-Chek Guide test strip Generic drug: glucose blood DIRECTED TO TEST THREE TIMES DAILY Alpha tocopherol 200 units capsule Commonly known as: Vitamin E Take 1 capsule by mouth 1 time each day. ALPRAZolam 1 MG tablet Commonly known as: Xanax TAKE ONE TABLET BY MOUTH THREE TIMES DAILY MAY CAUSE DROWSINESS aspirin 81 MG EC tablet Take 1 tablet by mouth 1 time each day. busPIRone 10 MG tablet Commonly known as: Buspar Take 1 tablet by mouth 2 times a day. cholecalciferol 25 MCG (1000 UT) tablet Commonly known as: Vitamin D3 Take 2 tablets by mouth 1 time each day. FeroSul 325 (65 Fe) MG tablet Generic drug: ferrous sulfate Take 1 tablet by mouth 3 times a week. GAS-X PO Take 1 tablet by mouth as needed. lactulose 10 GM/15ML oral solution Commonly known as: Chronulac Take 30 mL by mouth 3 times a day. lamoTRIgine 100 MG tablet Commonly known as: LaMICtal Take 1 tablet by mouth twice a day. Lantus SoloStar 100 UNIT/ML injection pen Generic drug: insulin glargine Inject 50 Units under the skin nightly. levothyroxine 125 MCG tablet Commonly known as: Synthroid, Levoxyl Take 1 tablet by mouth daily before breakfast. magnesium oxide 400 (240 Mg) MG tablet Commonly known as: Mag-Ox Take 1 tablet by mouth twice a day. MELATONIN PO Take 1 tablet by mouth nightly. NON FORMULARY Take 10 mg by mouth 4 (four) times a day. Domperidone pantoprazole 40 MG EC tablet Commonly known as: Protonix Take 1 tablet by mouth daily. pregabalin 75 MG capsule Commonly known as: Lyrica Take 1 capsule by mouth 2 times a day. Take 2 capsules by mouth in the morning. Then take once capsule by mouth in the evening. propranolol LA 160 MG 24 hr capsule Commonly known as: Inderal LA Take 1 capsule by mouth daily. ranolazine 500 MG 12 hr tablet Commonly known as: Ranexa Take 1 tablet by mouth twice a day. rosuvastatin 20 MG tablet Commonly known as: Crestor Take 1 tablet by mouth 1 time each day. Vascepa 1 g capsule Generic drug: Icosapent Ethyl Take 2 capsules by mouth 2 times a day. venlafaxine XR 150 MG 24 hr capsule Commonly known as: Effexor-XR Take 1 capsule by mouth 1 time each day. Where to Get Your Medications Information about where to get these medications is not yet available Ask your nurse or doctor about these medications busPIRone 10 MG tablet pregabalin 75 MG capsule Discharge Diagnosis Medical Problems Active and Resolved Hospital Problems Hospital COPD (chronic obstructive pulmonary disease) (CMS/HCC) (Chronic) Diabetes mellitus (CMS/HCC) (Chronic) Presence of colostomy (CMS/HCC) (Chronic) Essential hypertension Thyroid disease * (Principal) Acute encephalopathy Debility Falls frequently Acute kidney injury superimposed on CKD (CMS/HCC) Cirrhosis (CMS/HCC) Metabolic acidosis Mood disorder (CMS/HCC) Altered mental status Post Discharge Instructions -F/U w/ PCP re: polypharmacy & renal function -Take lactulse daily w/ goal of 3-4 loose BM daily Outpatient Follow-Up Future Appointments Date Time Provider Department Center 04/09/2025 4:00 PM Jordan Hanson MD [facility] 06/22/2025 4:00 PM Elin Kelly MD [facility] Test Results Pending At Discharge Pertinent Physical Exam At Time of Discharge Physical Exam Constitutional: General: She is not in acute distress. HENT: Head: Normocephalic and atraumatic. Cardiovascular: Rate and Rhythm: Normal rate and regular rhythm. Pulses: Normal pulses. Heart sounds: No murmur heard. Pulmonary: Effort: Pulmonary effort is normal. No respiratory distress. Abdominal: General: There is no distension. Palpations: Abdomen is soft. Tenderness: There is no abdominal tenderness. Musculoskeletal: Right lower leg: No edema. Left lower leg: No edema. Neurological: Mental Status: She is alert. Comments: Oriented to person, place, time &context Discharge Disposition/Condition Disposition: Home with Home Health Condition: Stable (s/sx potential problems absent or manageable) I spent >30 minutes of patient care and instruction time in preparation for this discharge. * Progress Notes - Brain Rodríguez - 12/25/2024 2:06 PM EDT Physical Therapy Treatment Patient Name: Dorota Flor Today's Date: 12/25/2024 PT Discharge Recommendations: Home with 24 hour assistance, Home health PT, Home health OT ([id number]/ assist) Equipment Recommended: Rolling walker Subjective Pt agreeable to therapy session. Participants in Care Family/Caregiver Present: No Database Security Expert: Not Applicable Presentation Oxygen Therapy: None (Room air) Lines and Tubes: Intravenous access Pre-Session: Supine, Head of bed elevated, Lines intact Pre-Session Comments: RN agreeable to therapy session Post-Session: Sitting: edge of bed, Lines intact, RN notified, Call light in reach Post-Session Comments: All needs within reach. RN present. Precautions Medical Precautions: Fall precautions Objective Pain Pt reports no pain. Delirium Screening Rodney Agitation Sedation Scale (RASS): Alert and calm Confusion Assessment Method-ICU (CAM-ICU/PCAM-ICU) Feature 3: Altered Level of Consciousness: Negative Bed Mobility Bed Mobility Interventions: Verbal cues for LE sequencing off of EOB and trunk control into sitting. Bed Mobility Exam: Scooting/Bridging Level of Union: Stand-by assist (towards EOB) Physical/Nonphysical Assist: Verbal Cues, Minimal cues Assistive Device: Bed rails Bed Mobility Exam: Supine to Sit Level of Union: Stand-by assist Physical/Nonphysical Assist: Verbal Cues, Minimal cues Assistive Device: Bed rails Transfers Transfer Interventions: Verbal cues for safe hand, foot, and AD placement prior to standing/sitting Transfer Exam: Sit to stand Level of Union: Contact guard Physical/Nonphysical Assist: Verbal Cues, Minimal cues Assistive Device: Walker, rolling Transfer Exam: Stand to Sit Level of Union: Contact guard Physical/Nonphysical Assist: Verbal Cues, Minimal cues Assistive Device: Walker, rolling Ambulation Device: Rolling walker Apparatus: None Assistance: Contact guard assist, Minimal verbal cues Distance : 280' Ambulation Comments: Verbal cues for maintaining upright posture, body within walker, and appropriate pace. No dizziness/LH or LOB noted. Ambulation distance limited secondary to fatigue, however, ptdisplaying appropriate safety awareness and sequencing througout ambulation via RW. Increased time required for pace and sequencing. Balance Postural Appearance Posture: Stooped posture, Forward head Static Sitting Balance Static Sitting-Balance Support: Feet supported, No upper extremity support Static Sitting-Level of Assistance: Standby assist Dynamic Sitting Balance Dynamic Sitting-Balance Support: No upper extremity support, Feet supported Dynamic Sitting-Balance: Lateral weight shifts, Anterior/Posterior weight shifts Level of Assistance: Standby assisst Static Standing Balance Static Standing-Balance Support: Right upper extremity support, Left upper extremity support Static Standing-Level of Assistance: Contact guard Static Standing - Interventions: Following STS with RW Dynamic Standing Balance Dynamic Standing-Balance Support: Right upper extremity support, Left upper extremity support Dynamic Standing-Balance: Lateral weight shifts, Anterior/Posterior weight shifts Dynamic Standing Level of Assistance: Contact guard Dynamic Standing - Interventions: During ambulation with RW Therapeutic Activity (24 minutes) See bed mobility, balance, transfers, and ambulation sections for more detail. Assessment Pt improving, requiring decreased assistance with bed mobility, ambulatory transfers and ambulationthis date compared to previous session. Pt also increasing overall ambulation distance this date compared to previously. Based on current functional status, pt deemed appropriate for return home withinitial 24/7 assistance. Pt displayed appropriate safety awareness and sequencing with all mobilitytasks this date. Will continue to progress strength and mobility as able. PT Recommendations Discharge Destination: Home with 24 hour assistance, Home health PT, Home health OT (Initial 24/7 assist) Discharge Equipment: Rolling walker Plan Continue POC. PT Goals PT GOAL DETAILS Goal Established Date Time Frame Goal Status PT Goal 1: Patient to perform supine <> sit IND with HOB flat and no use of bed rails to simulate home environment and decrease caregiver burden. 12/24/24 2 weeks PT Goal 2: Patient to perform sit <> stand and bed <> chair with MOD I/LRAD to improve functional mobility and independence. 12/24/24 2 weeks PT Goal 3: Patient to ambulate >350ft on even surface with MOD I/LRAD to improve functional mobility. 12/24/24 2 weeks Written by Brain Rodríguez on 12/25/24 at 2:25 PM. * Progress Notes - Prabhjot Mehta MD - 12/25/2024 7:47 AM EDT Images from the original note were not included. Hospital Medicine Progress Note Patient Name: Dorota Flor Date: 12/25/24 Hospital Day: 1 Hospital Course/Summary 59F PMH MASH cirrhosis, CAD s/p stents (2017), PVCs s/p ablation (1999), HTN, HLD, T2DM, CKD2, COPDw/ nicotine dependence, chronic constipation s/p colostomy w/ revision, hypothyroidism, GERD fibromyalgia & bipolar disorder presented to [facility] ED overnight 12/23-03/2025 accompanied by adult daughter w/ increasing confusion x 3 weeks, multiple recent falls (unknown if head strikes or LOC) & ge neralized weakness. At admission, daughter reported patient had been non- adherent to outpatient lactulose. Exam in ED significant for chronically ill-appearing adult female w/ abnormal gait & coordination & right elbow abrasions. CBC showed minimal leukocytosis & mild thrombocytopenia. INR minimally elevated (1.2). Chemistry labs showed minimal hyponatremia, decreased serum bicarbonate, anion gap WNL, elevated Cr/decreased GFR, elevated BUN & mildly elevated ALP. Ammonia & lactate WNL. Troponin minimally elevated x 2 w/o significant delta. VBG showed decreased pH w/ pCO2 WNL & elevated pO2. UA w/ glucosuria, protein, trace leukocytes & pyuria w/o nitrite, bacteria or squamous cells. EKG NSR w/ incomplete RBBB. CT head & cervical spine negative acute intracranial abnormality & negative for acute fracture or traumatic subluxation of cervical spine. CXR negative for acute abnormality. XR elbow right negative for acute fracture or dislocation. XR pelvis negative for acute fracture. U/S renal unremarkable w/o evidence of hydronephrosis. Then admitted to hospital medicine for further management of acute encephalopathy suspected 2/2 hepatic encephalopathy from lactulose non-adherence & FLORENTIN. 12/24/2024: U/S abdomen showed patent hepatic vasculature w/ appropriate flow directionality & no ascites. PT/OT recommended acute rehab. Subjective Interval History: No new acute events AM labs showed improving renal function No new acute complaints - Reported feeling improved relative to 24 hours prior Patient partially remembered meeting hospitalist on prior day. Alert & oriented to person, place & time & partially to context At 1538 hospitalist attempted to call patient's daughter (Christin Flor [phone]) to update sharon hospital course & plan but there was no answer ROS: Review of Systems Constitutional: Negative for chills and fever. HENT: Negative for sore throat and trouble swallowing. Respiratory: Negative for cough and shortness of breath. Gastrointestinal: Negative for abdominal pain, blood in stool, constipation, nausea, rectal pain and vomiting. Genitourinary: Negative for dysuria. Musculoskeletal: Positive for back pain. Neurological: Negative for dizziness, light-headedness and headaches. Objective Vitals: Vitals: 12/25/24 0100 12/25/24 0304 12/25/24 0404 12/25/24 0446 BP: 113/62 BP Location: Right arm Patient Position: Lying Pulse: 61 Resp: 18 13 13 12 Temp: 36.9 ??C (98.5 ??F) TempSrc: Oral SpO2: 93% Weight: Height: BMI: Body mass index is 30.09 kg/m??. 1 No intake/output data recorded. 2 Intake/Output Summary (Last 24 hours) at 12/25/2024 0747 Last data filed at 12/24/2024 1148 Gross per 24 hour Intake -- Output 150 ml Net -150 ml Physical Exam Constitutional: General: She is not in acute distress. HENT: Head: Normocephalic and atraumatic. Cardiovascular: Rate and Rhythm: Normal rate and regular rhythm. Pulses: Normal pulses. Heart sounds: No murmur heard. Pulmonary: Effort: Pulmonary effort is normal. No respiratory distress. Abdominal: General: There is no distension. Palpations: Abdomen is soft. Tenderness: There is no abdominal tenderness. Musculoskeletal: Right lower leg: No edema. Left lower leg: No edema. Neurological: Mental Status: She is alert. Comments: Oriented to person, place & time & partially context Labs & Imaging Labs: Renal Panel: Lab Results Component Value Date NA 136 12/25/2024 K 3.6 12/25/2024 CL 105 12/25/2024 CO2 17 (L) 12/25/2024 BUN 53 (H) 12/25/2024 CA 8.9 09/22/2020 PHOS 3.5 12/25/2024 MBD: Lab Results Component Value Date CALCIUM 9.4 12/25/2024 CAION 5.1 12/24/2024 PHOS 3.5 12/25/2024 CBC: Lab Results Component Value Date WBC 7.49 12/25/2024 RBC 5.25 (H) 12/25/2024 HGB 14.8 12/25/2024 HCT 42.1 12/25/2024 PLT 94 (L) 12/25/2024 MCV 80 12/25/2024 MCH 28.2 12/25/2024 MCHC 35.2 12/25/2024 RDW 16.9 (H) 12/25/2024 NRBC 0.0 12/25/2024 Iron studies: No results found for: TIBC Imaging: Imaging reviewed by me. US Renal Complete Result Date: 12/24/2024 Unremarkable renal ultrasound. No hydronephrosis. CRITICAL RESULT: No. COMMUNICATION: Per this written report. Drafted by Christin Hoyt DO on 12/24/2024 8:50 AM Final report signed by Christin Hoyt DO on 12/24/2024 8:53 AM XR Pelvis 1 or 2 Views Result Date: 12/24/2024 No acute pelvic fracture. CRITICAL RESULT: No. COMMUNICATION: Per this written report. Preliminary report signed by Madeline More MD on 12/24/2024 5:28 AM By electronically signing this report, I, the attending physician, attest that I have personally reviewed the images/data for the above examination(s) and agree with the final edited report. Drafted by Madeline More MD on 12/24/2024 5:26 AMFinal report signed by Pablo Willard MD on 12/24/2024 5:30 AM XR Elbow Right 3+ View Result Date: 12/24/2024 No acute fracture or dislocation. CRITICAL RESULT: No. COMMUNICATION: Per this written report. Drafted by Pablo Willard MD on 12/24/2024 5:24 AM Final report signed by Pablo Willard MD on 12/24/2024 5:25 AM XR Chest 1 View Result Date: 12/24/2024 Coronary artery stents. IMPRESSION: No acute abnormality. CRITICAL RESULT: No. COMMUNICATION: Per this written report. 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 Drafted by Pablo Willard MD on 12/24/2024 5:11 AM Final report signed by Pablo Willard MD on 12/24/2024 5:11 AM Result Date: 12/24/2024 No acute intracranial abnormality. No acute fracture or traumatic subluxation of the cervical spine. CRITICAL RESULT: No. COMMUNICATION: Per this written report. 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 Drafted by Pablo Willard MD on 12/24/2024 5:11 AM Final report signed by Pablo Willard MD on 12/24/2024 5:11 AM Result Date: 12/24/2024 No acute intracranial abnormality. No acute fracture or traumatic subluxation of the cervical spine. CRITICAL RESULT: No. COMMUNICATION: Per this written report. Drafted by Pablo Willard MD on 12/24/2024 5:06 AM Final report signed by Pablo Willard MD on 12/24/2024 5:09 AM EKG/Echocardiogram: Encounter Date: 12/24/24 EKG now - STAT (adult) Result Value EKG DIAGNOSIS CLASS Abnormal Ventricular Rate 61 Atrial Rate 61 MT Interval 138 QRSD Interval 98 QT Interval 408 QTC Interval 410 P Crane 62 R Crane 18 T Wave Crane 106 Diagnosis Normal sinus rhythm Diagnosis Possible Left atrial enlargement Diagnosis Incomplete right bundle branch block Diagnosis ST & T wave abnormality, consider lateral ischemia Diagnosis Pulmonary disease pattern Diagnosis Abnormal ECG Diagnosis Diagnosis Confirmed by Javed Zavaleta ([id number]) on 12/24/2024 11:34:46 AM *Note: Due to a large number of results and/or encounters for the requested time period, some results have not been displayed. A complete set of results can be found in Results Review. No echocardiogram results found for the past 12 months MAR: Scheduled Medication(s): Current Scheduled Medications[1] Continuous Infusion(s): Current Continuous Medications[2] As Needed (PRN) Medications: Current PRN Medications[3] Assessment & Plan Principal Problem: Acute encephalopathy Active Problems: COPD (chronic obstructive pulmonary disease) (CMS/HCC) Diabetes mellitus (CMS/HCC) Essential hypertension Presence of colostomy (CMS/HCC) Thyroid disease Debility Falls frequently Acute kidney injury superimposed on CKD (CMS/HCC) Cirrhosis (CMS/HCC) Metabolic acidosis Mood disorder (CMS/HCC) Altered mental status 59F PMH MASH cirrhosis, CAD s/p stent (2017), PVCs s/p ablation (1999), HTN, HLD, T2DM, CKD2, COPD w/ nicotine dependence, chronic constipation s/p colostomy w/ revision, hypothyroidism, GERD fibromyalgia & bipolar disorder p/w increasing confusion x 3 weeks, multiple recent falls & generalized weakness in setting of not being adherent w/ lactulose & rifaximin found to have acute toxic metabolic encephalopathy 2/2 hepatic encephalopathy & polypharmacy in setting of FLORENTIN. Update 12/25/24: Mental status & FLORENTIN improving w/ lactulose & holding furosemide. Recommendacute rehab but, per nursing, seems family prefers for patient to return home. Attempted to call family in afternoon to discuss but no answer. #Acute Toxic Metabolic Encephalopathy (ATME) #Polypharmacy -Mental status improving -Present at admission -Developed ~3 weeks prior to admission & progressively worsened subsequently -Suspect multifactorial etiology - DDX includes but not limited hepatic encephalopathy & polypharmacy in setting of FLORENTIN -No evidence indicative of significant infection currently -CT head (12/24/2024) negative acute intracranial abnormality -CXR (12/24/2024) negative for acute abnormality PLAN -Management of underlying/contributing etiologies as detailed elsewhere in A&P -Avoid/Decrease doses of centrally-acting medications as able -Delirium Precautions: -Delirium can persist for days, weeks, to months after precipitating incident regardless of treatment of underlying etiology, if identified. Recommend delirium precautions as follows: -While there is a black box warning for the use of antipsychotics in geriatric patients with MNCD, delirium is also associated w/ increased risk of all-cause mortality. Therefore, benefit of short-term anti-psychotic use outweighs risks & may be used for treatment of delirium when used judiciously. -Please enforce strict maintenance of sleep-wake cycle. Keep patient awake as able during daylight hours & please keep curtains open. At night dim lights, TV off if possible & minimize interruptions. Schedule Melatonin 3-6mg at bedtime, which has been shown to be beneficial in delirium & promote sleep cycle regularity. -Cluster care when possible at night including sleep-friendly vital signs (once overnight in early evening/bedtime) if safe/medically stable -Please minimize the use of restraints as restraints may worsen delirium -Provide frequent reorientation -Employ early & frequent mobility (especially during the day) including up to chair for meals -Ensure patient has access to glasses/hearing aids as needed -Maintain appropriate fluid and electrolyte levels, strict I/O monitoring as appropriate -Make comfort PRNs available for pain & constipation -Encourage presence of loved ones at bedside -Minimize use of deliriogenic medications including benzodiazepines, anticholinergics & antihistaminergics -Avoid concurrent use of IM Zyprexa and parenteral benzodiazepines as there is drug-drug interaction that increases risk for respiratory depression #Hepatic Encephalopathy #MASH Cirrhosis #Medication Non-Compliance MELD 3.0: 13 at 12/25/2024 3:42 AM MELD-Na: 13 at 12/25/2024 3:42 AM Calculated from: Serum Creatinine: 1.37 mg/dL at 12/25/2024 3:42 AM Serum Sodium: 136 mmol/L at 12/25/2024 3:42 AM Total Bilirubin: 0.3 mg/dL (Using min of 1 mg/dL) at 12/25/2024 3:42 AM Serum Albumin: 4.1 g/dL (Using max of 3.5 g/dL) at 12/25/2024 3:42 AM INR(ratio): 1.2 at 12/25/2024 3:42 AM Age at listing (hypothetical): 59 years Sex: Female at 12/25/2024 3:42 AM -Ascites: No -Hx of SBP: No -Esophageal Varices: No -EGD (04/29/2024): - Normal appearing esophagus w/o varices, mildly atrophic w/ erythematous mucosa& erosion & normal appearing duodenum -Hx of HE: Yes -Follows w/ [facility] - Last seen in clinic 12/02/2024 -Prescribed furosemide 20 mg daily w/ potassium chloride 20 mEq daily, lactulose 30 mL TID & propranolol -Per last GI clinic note (12/02/2024) patient was continued on rifaximin but appears that last prescription fill was 02/04/2024 -Per daughter, patient was NOT taking lactulose as prescribed & was NOT taking rifaximin at allprior to admission -Vitamin B12 & folate (12/24/2024) WNL -U/S abdomen (12/24/2024) showed patent hepatic vasculature w/ appropriate flow directionality &no ascites PLAN -Lactulose -Propranolol -Fluid restriction -Sodium restricted diet -Monitor electrolytes, renal function, LFTs & INR #Acute Kidney Injury (FLORENTIN)-on-CKD2 -Improving -Present at admission -Suspect likely prerenal -U/S renal (12/24/2024) unremarkable w/o evidence of hydronephrosis. -Appears baseline Cr ~0.9-1.0 & GFR 60s-70s -Estimated Creatinine Clearance: 38.8 mL/min (A) (by C-G formula based on SCr of 1.37 mg/dL (H)). PLAN -Hold furosemide -Monitor Cr/GFR -Monitor UOP -Avoid nephrotoxic agents as able -Renally dose medications as necessary #Multiple Recent Falls -Per daughter report - Unknown if head strikes or LOC -CT head & cervical spine (12/24/2024) negative acute intracranial abnormality & negative for acute fracture or traumatic subluxation of cervical spine -CXR (12/24/2024) negative for acute abnormality -XR elbow right (12/24/2024) negative for acute fracture or dislocation -XR pelvis (12/24/2024) negative for acute fracture -Vitamin D (12/24/2024) WNL PLAN -PT/OT -Fall precautions #T2DM -Glucose acutely uncontrolled -Glucose chronically uncontrolled (HbA1c = 8.4% on 12/24/2024) -Prescribed empagliflozin, linagliptin & glargine 50 units daily as outpatient PLAN -Glargine 30 units daily -SSI Lispro - Standard -Consistent carbohydrate diet #COPD w/ Nicotine Dependence -Per chart review -Not in acute exacerbation currently -Does not appear to be prescribed inhalers as outpatient -No PFTs available in Epic PLAN -Albuterol-ipratropium -Nicotine replacement -Recommended outpatient PFTs #Chronic Constipation s/p Colostomy w/ Revision -Prescribed prucalopride succinate & linaclotide as outpatient PLAN -Hold antidiarrheal agents while restarting lactulose -Colostomy care #CAD s/p Stents #PVCs s/p Ablation -Appears stable -Per chart review, stent 2017 & PVC ablation 1999 -Prescribed ASA, rosuvastatin, ranolazine & propranolol as outpatient PLAN -ASA -Rosuvastatin -Ranolazine -Propranolol #HTN -BP controlled -Prescribed diltiazem as outpatient PLAN -Monitor clinically #Hypothyroidism -TSH minimally decreased & FT4 (12/24/2024) WNL -Prescribed levothyroxine 125 mcg daily as outpatient PLAN -Levothyroxine #HLD -Prescribed rosuvastatin as outpatient PLAN -Rosuvastatin #GERD -Prescribed pantoprazole as outpatient PLAN -Pantoprazole #Fibromyalgia -Prescribed pregabalin 150 mg QAM & 75 MG QPM as outpatient but, daughter reported that PCP recently decreased dose to 75 BID PLAN -Pregabalin -Lidocaine patch #Bipolar Disorder #Anxiety #Chronic Outpatient Prescription Benzodiazepine Use -Prescribed buspirone, lamotrigine & venlafaxine as well as alprazolam 1 mg as outpatient but, daughter reported that PCP recently decreased buspirone to 10 mg BID PLAN -Buspirone -Lamotrigine - Monitor level -Venlafaxine -Alprazolam BID PRN (decreased from TID PRN as outpatient) #Diet: Regular, sodium restriction, fluid restriction #VTE Prophylaxis: This patient does not have an active medication from one of the medication groupers. #Disposition: TBD #Code Status: Full Code #Bowel Regimen: As detailed elsewhere in A&P Prabhjot Chalino Mehta MD, [facility] Medicine Secure chat preferred Pager [phone] Note to Patient: The Century Cures Act makes medical notes like these available to patients inthe interest of transparency. However, be advised this is a medical document. It is intended as peer-to peer-communication among professional medical care providers. It is written in medical language& may contain abbreviations or verbiage that are unfamiliar. It may appear blunt or direct. Medical documents are intended to carry relevant information, facts as evident & the clinical opinion of the practitioner. [1] aspirin, 81 mg, Oral, Daily busPIRone, 10 mg, Oral, BID cholecalciferol, 2,000 Units, Oral, Daily insulin glargine-yfgn, 25 Units, Subcutaneous, Daily insulin lispro, 0-5 Units, Subcutaneous, TID with meals insulin lispro, 0-3 Units, Subcutaneous, Twice at night lactulose, 20 g, Oral, TID lamoTRIgine, 100 mg, Oral, BID levothyroxine, 125 mcg, Oral, Daily before breakfast lidocaine, 2 patch, Apply externally, q24h magnesium oxide, 400 mg, Oral, Daily nicotine, 1 patch, Transdermal, Daily pantoprazole, 40 mg, Oral, Daily pregabalin, 75 mg, Oral, BID propranolol LA, 160 mg, Oral, Daily ranolazine, 500 mg, Oral, BID rosuvastatin, 20 mg, Oral, Nightly sodium chloride, 10 mL, Intravenous, q12h venlafaxine XR, 150 mg, Oral, Daily with breakfast [2] [3] PRN medications: acetaminophen, ALPRAZolam, glucose OR dextrose 10 % OR dextrose 10 % OR glucagon (human recombinant), Insert peripheral IV AND Saline lock IV AND sodium chloride AND sodium chloride * Consults - Margaret Balbuena RD - 12/25/2024 7:46 AM EDT Adult Nutrition Evaluation Note Dorota Flor 59 y.o. female CSN: [id number] Room/Bed 512/512 Nutrition evaluation type: assessment Reason for evaluation: provider consult Hospital course: 59 yoF presents to ED 12/24 d/t acute on chronic encephalopathy, worsening physicalfunction, reoccurring falls. Past medical/ surgical history: Past Medical History[1] Surgical History[2] Social history: Social History[3] Additional comments: Pt in ED Vitals and Basic Assessment: BP: 125/72 Temp: 36.5 ??C (97.7 ??F) Oxygen Therapy: None (Room air) [place] Coma Scale Score: 14 Ubaldo Scale Score: 18 Most Recent BM Date: 12/24/24 Allergies: NKFA Medications: Current Scheduled Medications[4] Meds were reviewed: Yes Labs: Lab Results Component Value Date GLUCOSE 193 (H) 12/25/2024 CALCIUM 9.4 12/25/2024 NA 136 12/25/2024 K 3.6 12/25/2024 CO2 17 (L) 12/25/2024 CL 105 12/25/2024 BUN 53 (H) 12/25/2024 CREATININE 1.37 (H) 12/25/2024 PHOS 3.5 12/25/2024 MG 2.3 12/25/2024 HGBA1C 8.4 (H) 12/24/2024 Lab Results Component Value Date WBC 7.49 12/25/2024 HGB 14.8 12/25/2024 HCT 42.1 12/25/2024 MCV 80 12/25/2024 PLT 94 (L) 12/25/202412/24: ammonia 46 Anthropometrics: Height: 149.9 cm (4' 11 ) Weight: 67.6 kg (149 lb) BMI (Calculated): 30.08 Weight Evaluation: Obese-Class 1 (BMI 30-34.9) [place] Body Weight (kg): 44.3 Percent [place] Body Weight: 152 Adjusted Body Weight (kg): 50.1 Wt Readings from Last 8 Encounters: 12/24/24 67.6 kg (149 lb) 12/02/24 68 kg (149 lb 14.6 oz) 10/06/24 68.4 kg (150 lb 12.7 oz) 05/12/24 68 kg (150 lb) 04/29/24 66.3 kg (146 lb 2.6 oz) 02/04/24 65.7 kg (144 lb 13.5 oz) 07/30/23 61.8 kg (136 lb 3.9 oz) 07/12/23 62.7 kg (138 lb 3.7 oz) Weight gain noted Estimated Needs: Kcal/ K Kcal Provided: 1750 Kcal Needs Based On: Adjusted weight Metabolic Cart Study Results: Current Nutrition Intake: Diet Order: Adult Diet Diet Texture: Regular Adult Carbohydrate Restriction: Consistent CHO 3 ([id number] [place], 95 g/meal) Adult Sodium Restriction: 2,000 mg Na Adult Fluid Restriction / 24 hr: 2000 mlfluid Percent Meals Eaten (%): Establishing Diet Experience and Nutrition History: Diet Education Provided: Will monitor Pertinent home medications: vit E, buspirone, vit D3, FeroSul, lasix, jardiance, lactulose, levothyroxine, magnesium oxide, motegrity, zofran, potassium chloride, rosuvastatin, venlafaxine Sikhism needs: Nutrition Focused Physical Exam: Unable to Complete Exam: Other (Comment) (Pt in ED) Physical exam performed on (date): pending Assessment of Malnutrition: Nutrition Problem: Decreased nutrient needs Na related to PALM cirrhosis as evidenced by need for 2000mg Na diet. Status of Nutrition Diagnosis: New Nutrition Interventions and Recommendations: - Consider CC2 vs CC3 diet --continue 2000 mg Na diet --FR per MD/team - Encourage adequate po intake. - Record intakes on flowsheet Nutrition Monitoring and Goals: - PO intake > 75% of most meals - Monitor po intake and tolerance, weight changes, labs, GI function and skin integrity. Acuity Level: 1 Margaret L Balbuena, RD, LD [1] Past Medical History: Diagnosis Date Depression [...] urinary calculi History of kidney stones [2] Past Surgical History: Procedure Laterality Date COLOSTOMY LITHOTRIPSY N/A lithotripsy from [facility] OTHER SURGICAL HISTORY N/A Liver Biopsy from [facility] OTHER SURGICAL HISTORY N/A ostomy from [facility] [3] Social History Tobacco Use Smoking status: Every Day Current packs/day: 1.00 Average packs/day: 1 pack/day for 42.5 years (42.5 ttl pk-yrs) Types: Cigarettes Start date: 1982 Passive exposure: Current Smokeless tobacco: Never Vaping Use Vaping status: Never Used Substance Use Topics Alcohol use: No Drug use: No Comment: Drug use: No illicit drug use [4] aspirin, 81 mg, Oral, Daily busPIRone, 10 mg, Oral, BID cholecalciferol, 2,000 Units, Oral, Daily insulin glargine-yfgn, 25 Units, Subcutaneous, Daily insulin lispro, 0-5 Units, Subcutaneous, TID with meals insulin lispro, 0-3 Units, Subcutaneous, Twice at night lactulose, 20 g, Oral, TID lamoTRIgine, 100 mg, Oral, BID levothyroxine, 125 mcg, Oral, Daily before breakfast lidocaine, 2 patch, Apply externally, q24h magnesium oxide, 400 mg, Oral, Daily nicotine, 1 patch, Transdermal, Daily pantoprazole, 40 mg, Oral, Daily pregabalin, 75 mg, Oral, BID propranolol LA, 160 mg, Oral, Daily ranolazine, 500 mg, Oral, BID rosuvastatin, 20 mg, Oral, Nightly Insert peripheral IV, , , Once AND Saline lock IV, , , Once AND sodium chloride, 10 mL, Intravenous, q12h AND sodium chloride, 10 mL, Intravenous, PRN venlafaxine XR, 150 mg, Oral, Daily with breakfast * Progress Notes - Mary Hoyt - 12/24/2024 2:03 PM EDT Case Management Adult Progress Note Dorota Flor 59 y.o. female CSN: [id number] Admission: 12/24/2024 3:01 AM Primary Problem: Acute encephalopathy Anticipated Discharge Date: TBD pending medical progress Plan of care reviewed with pt's care team; and per MD, pt is not medically ready for discharge due to AMS and frequent falls. PT/OT are recommending acute rehab. Will discuss rehab recs with pt/daughter and if agreeable, [facility]ref[facility] to [facility]. Update: Acute rehab referral sent to [facility] SW will complete initial assessment as time allows and continue to follow pt's progress and discharge plan. MONICA Garcia Case Management * Progress Notes - Alison Nixon, EDIE-POWER HOUSE ENGINEER - 12/24/2024 10:50 AM EDT Speech Language Pathology Clinical Swallow Initial Evaluation and Discharge Evaluation Patient Name: Dorota Flor Age: 59 y.o. Today's Date: 12/24/2024 Recommendations: Regular (IDDSI Level 7) diet w/ thin liquids (Level 0). Meds as able. No further POWER HOUSE ENGINEER services indicated at this time. Will sign off. Please re- consult if needed. History/Background Information Dorota Flor is a 59 y.o. year-old female who has a past medical history significant for CAD s/p PCI in 2018, PVCs s/p ablation (1999), DM type II, HTN, GERD, MASH cirrhosis, CKD, chronic constipation s/p colostomy w/ revision, bipolar d/o, COPD, and nicotine dependence who presents to ED on12/24/24 due to acute on chronic encephalopathy, worsening physical function, reoccurring fall. Problem List[1] Past Medical History[2] Surgical History[3] Subjective Dorota Flor was alert, cooperative and agreeable to evaluation. Identified by name and . RNprovided verbal consent for evaluation. Objective Vitals: 12/24/24 1006 BP: 133/63 Pulse: 61 Resp: 19 Temp: 36.4 ??C (97.6 ??F) SpO2: 95% Current diet: NPO diet NPO except: Ice chips, Sips with meds, Sips of clear liquids Respiratory Status: room air WBC: 10.8 Relevant Imaging: CXR 12/24: Glascow Coma Scale: [place] Coma Scale Score: 14 Imaging: CXR 12/24: Findings: Old calcified granulomatous disease. Vascular calcifications. No large focal consolidation pneumothorax or large effusion. No obvious displaced rib fractures. Direction Following: Patient was able to follow simple directions for participation in clinical swallow evaluation. Oral Mechanism Report: Dentition: dentures (upper), partial lower Oral hygiene: WFL Focused Cranial Nerve Exam: Trigeminal Nerve (V): facial sensation intact and mandible strength/ROM intact Facial Nerve (VII): WFL Vagus Nerve (X): intact palate elevation Spinal Accessory (XI): [facility] Hypoglossal Nerve (XII): [facility] Function Exam: Secretion Management: adequate Vocal Quality: adequate Cough: - Volitional adequate - Reflexive PO trials did not elicit Oral Feeding Trials: Positioning: Upright Feeding assistance: independent, self-fed Consistencies Administered: thin liquid via cup, thin liquid via straw, pudding via teaspoon, and dry solid consistency Risk Factors: cognitive status [place] Swallow Protocol (April, 2008) - 3 Oz water challenge: Passed Assessment Patient consumed extensive PO trials of thin liquids, puree and dry solids. Oral motor evaluation revealed functional labial and lingual ROM, strength and tone. Oral phase was characterized by full labial closure and anterior oral containment. Pharyngeal phase was characterized by no overt s/s of aspiration. Pt passed the [place] Swallow Protocol suggesting low risk of aspiration. Pt denies hx of dysphagia and CXR is WNL. Given overall medical condition, would suspect likelihood of aspiration withsubsequent pulmonary complications to be low. Ok to resume full PO diet. Patient Education was provided via verbal instruction to patient and daughter regarding POWER HOUSE ENGINEER evaluation and POC. Results and recommendations of this evaluation were communicated to: Medical team Plan / Recommendations Diet recommendations: Regular (IDDSI Level 7) diet w/ thin liquids (Level 0). Meds as able. No further POWER HOUSE ENGINEER services indicated at this time. Will sign off. Please re-consult if needed. No skilled therapy recommended. [1] Patient Active Problem List Diagnosis Abdominal colic Abdominal wall cellulitis Acute renal failure (CMS/HCC) Angina at rest (CMS/HCC) Typical angina (CMS/HCC) Anxiety Back pain Chest pain, precordial Chronic idiopathic constipation CKD (chronic kidney disease) stage 3, GFR 30-59 ml/min (CMS/HCC) Colon polyps Condyloma acuminatum in female COPD (chronic obstructive pulmonary disease) (CMS/HCC) Depression Diabetes mellitus (CMS/HCC) Diastolic CHF, chronic (CMS/HCC) Diverticulitis Diverticulosis Dizziness Epigastric pain Essential hypertension Fibromyositis Functional dyspepsia Gastroesophageal reflux disease with esophagitis Arthritis Dysmotility of stomach Gastritis Gastroparesis GERD (gastroesophageal reflux disease) Hepatitis Heart disease Hemorrhoids High cholesterol Hyperlipidemia LDL goal <70 Hypothyroidism (acquired) Insomnia Irregular heart beat Irritable bowel syndrome with constipation Kidney stones Nonalcoholic steatohepatitis Nonspecific abnormal finding in stool contents Numbness and tingling Occlusion of coronary artery (CMS/HCC) Coronary artery disease involving sun'aq coronary artery of sun'aq heart with unstable angina pectoris (CMS/HCC) Palpitations Presence of colostomy (CMS/HCC) PVC (premature ventricular contraction) Rectocele Renal insufficiency Sepsis secondary to UTI (CMS/HCC) Severe malnutrition (CMS/HCC) Tachycardia Tinea corporis Ulcerative colitis Thyroid disease Acute encephalopathy Debility Falls frequently Acute kidney injury superimposed on CKD (CMS/HCC) Cirrhosis (CMS/HCC) Metabolic acidosis Mood disorder (CMS/HCC) [2] Past Medical History: Diagnosis Date Depression Diabetes [...] of urinary calculi History of kidney stones [3] Past Surgical History: Procedure Laterality Date COLOSTOMY LITHOTRIPSY N/A lithotripsy from [facility] OTHER SURGICAL HISTORY N/A Liver Biopsy from [facility] OTHER SURGICAL HISTORY N/A ostomy from [facility] * Progress Notes - Sav Elia D - 12/24/2024 9:31 AM EDT OCCUPATIONAL THERAPY EVALUATION PATIENT DATA Patient Name Dorota Flor Session Date 12/24/2024 Total Time 26 min OT Discharge Recommendations Acute rehab Equipment Recommendations Defer to facility HISTORY Dorota Flor is 59 y.o. female admitted 12/24/2024 for work-up of Acute encephalopathy. Hospital Course 1. Altered mental status, unspecified altered mental status type 2. Falls frequently 3. Physical debility Procedures (if applicable) Past Medical History Patient has a past medical history of Depression, Diabetes mellitus (CMS/HCC),Disease of thyroid gland, Disorder of the autonomic nervous system, unspecified, H/O heart artery stent, Liver disease, Personal history of other diseases of the musculoskeletal system and connectivetissue, Personal history of other endocrine, nutritional and metabolic disease, Personal history ofother endocrine, nutritional and metabolic disease, Personal history of other endocrine, nutritional and metabolic disease, Personal history of other mental and behavioral disorders, and Personal history of urinary calculi. Past Surgical History Patient has a past surgical history that includes Other surgical history (N/A); Lithotripsy (N/A); Other surgical history (N/A); and Colostomy. PRECAUTIONS Mobility Guidelines Mobility Protocol: General - Mobility Guidelines Extremity Precautions: No Extremity Precautions Other mobility precautions: No other precautions required Medical Precautions Medical Precautions: Fall precautions SUBJECTIVE PARTICIPANTS IN CARE Subjective Daughter reports general decline recently with sharp decline in cognition/function in the last 12-15 hours prior to admission Visitors Present Adult Daughter Database Security Expert (if applicable) PRESENTATION Oxygen Room Air Telemetry No Lines and Tubes Colostomy LLQ (Active) Peripheral IV 12/24/24 Anterior;Left Forearm (Active) Pre-Session Supine, Head of bed elevated, Lines intact RN agreeable to OT session. Daughter presentat start session. Post-Session Supine, Head of bed elevated, Lines intact, RN notified, Call light in reach All needsmet upon close of session. Daughter present at close of session. Bracing (if applicable) HOME LIVING/SET-UP Lives With Alone Home Type House Home Equipment None Home Layout One level Bathroom Layout Tub/Shower combo Bathroom: Toilet: Standard Additional Comments PRIOR LEVEL OF FUNCTION Receives help from No assist required prior to admission Level of Mobility Ambulatory- community Mobility Union Independent gait without device History of Falls Yes (frequently) ADL Performance ADL Performance: Independent PATIENT/FAMILY GOALS Pt agreeable to OT eval OBJECTIVE PAIN Pt endorses chronic back pain Pain management addressed by the following: * pt was positioned for comfort * RN was informed of pt's pain DELIRIUM SCREENING Rodney Agitation Sedation Scale (RASS): Alert and calm Confusion Assessment Method-ICU (CAM-ICU/PCAM-ICU) Feature 3: Altered Level of Consciousness: Negative COGNITION Overall Cognitive Status Impaired Arousal/Alertness Delayed responses to stimuli Mood/Behavior Alert, Flat affect, Confused (delayed processing and motor planning) Orientation Oriented X4 Command Following Single Step Commands: With increased time, With repetition Multi-Step Commands: With increased time, With repetition, 50% of the time Method of Communication Verbal Additional Observations VISION Baseline Vision Glasses reading, Glasses distance Current Vision (if different) Current Vision: Intact Vision Comments: daughter reports pt with increasing difficulty with depth perception x2-3 days, notably when attempting to light a cigarette she is unable to get flame near cigarette without multiple attempts RIGHT UPPER EXTREMITY EXAMINATION Range of Motion Within Functional Limits Manual Muscle Testing Within functional limits Light Touch Sensation Mild impairment LEFT UPPER EXTREMITY EXAMINATION Range of Motion Within Functional Limits Manual Muscle Testing Within functional limits Light Touch Sensation Mild impairment RIGHT LOWER EXTREMITY EXAMINATION Range of Motion Within Functional Limits Manual Muscle Testing Within functional limits Light Touch Sensation Mild impairment LEFT LOWER EXTREMITY EXAMINATION Range of Motion Within Functional Limits Manual Muscle Testing Within functional limits Light Touch Sensation Mild impairment INTERVENTIONS Bed Mobility Bed Mobility Exam: Rolling/Turning Level of Union: Contact guard Physical/Nonphysical Assist: Verbal Cues, Minimal cues Bed Mobility Exam: Scooting/Bridging Level of Union: Contact guard Physical/Nonphysical Assist: Verbal Cues, Minimal cues Bed Mobility Exam: Supine to Sit Level of Union: Contact guard Physical/Nonphysical Assist: Verbal Cues, Minimal cues, HOB elevated (increased time) Bed Mobility Exam: Sit to Supine Level of Union: Contact guard Physical/Nonphysical Assist: Verbal Cues, Minimal cues, HOB elevated (increased time) Transfers Transfer Exam: Sit to stand Level of Union: Minimum assist (75% patient's effort) Physical/Nonphysical Assist: Set-up required, Verbal Cues, Nonverbal cues (demo/gestures), Minimal cues Assistive Device: Hand held assist Transfer Exam: Stand to Sit Level of Union: Minimum assist (75% patient's effort) Physical/Nonphysical Assist: Set-up required, Verbal Cues, Minimal cues Assistive Device: Hand held assist Balance Postural Appearance Posture: Forward head, Rounded shoulders Static Sitting Balance Static Sitting-Balance Support: Right upper extremity support, Left upper extremity support, Feet unsupported Stating Sitting - Interventions: CGA to min assist; demonstrated posterior leaning EOB Dynamic Sitting Balance Dynamic Sitting-Balance Support: No upper extremity support, Feet unsupported Dynamic Sitting-Balance: Lateral weight shifts, Anterior/Posterior weight shifts, Trunk control activities Dynamic Sitting - Interventions: min-mod assist while seated EOB due to posterior leaning Static Standing Balance Static Standing-Balance Support: Right upper extremity support, Left upper extremity support Static Standing-Level of Assistance: Minimum assistance Dynamic Standing Balance Dynamic Standing-Balance Support: Right upper extremity support, Left upper extremity support Dynamic Standing-Balance: Lateral weight shifts, Anterior/Posterior weight shifts Dynamic Standing Level of Assistance: Minimum assistance Self-Care Interventions (11 minutes) Feeding Feeding Interventions: anticipate assist required; daughter reports pt with increasing frequency ofdropping cups/silverware when eating. Able to use functionally but easily drops items when not focused on a feeding/drinking task. Lower Extremity Dressing Shoe Level of Assistance: Maximum assistance LE Dressing Where Assessed: Edge of bed LE Dressing Interventions: Pt able to doff shoes with CGA and increased time. Prior to donning, pt with difficulty untying shoes, difficulty motor planning and sequencing how to untie the knots. Dependent to untie knots. Pt then with multiple losses of balance posteriorly when attempting to don shoes, unable to insert feet into shoes. Dependent to don shoes and tie shoes. Following donning of shoes, Pt stood from EOB with Min A x2 via GARDE MANGER. Mobility performed a short distance in hallway as prep for navigating household distances to engage in ADL/IADL tasks. Min A with periods of Mod A for mobility. Pt returned supine with CGA upon conclusion of mobility. Educated pt and daughter regarding OTPOC and discharge recommendations. STANDARDIZED ASSESSMENTS [facility] 6-Click Daily Activities Help from Other: Don/Doff Regular Lower Body Clothings: A lot Help From Other: Bathing: A lot Help From Other: Toileting: A lot Help From Other: Don/Doff Upper Body Clothings: Little Help From Other: Grooming: Little Help From Other: Eating Meals: [facility] 6 Click - Daily Activities Score: 15 ASSESSMENT OT FINDINGS Pt presents with acute encephalopathy. Multiple falls reported. Pt demonstrates impaired safety awareness, coordination, balance, and generally unsafe to care for self at home in current condition. Daughter works and cannot provide assist during the day. Pt to benefit from OT POC during current admission and likely benefit from inpatient rehab prior to return home to maximize independence and safety to function alone at home. Will benefit from medical oversight for management of encephalopathy and cirrhosis dx. Impaired ADL performance, Impaired IADL performance, Impaired judgment during ADL, Decreased endurance/ventilation/gas exchange, Impaired functional mobility, Impaired cognition, Decreased upper extremity strength, Decreased gross motor control/coordination, Impaired fine motor control/coordination, Impaired balance, Impaired attention, Impaired motor planning Evaluation/ Treatment Tolerance (if identified) Patient limited by fatigue, Other (Comment) (impaired cognition) Rehab Potential (if identified) Good, to achieve stated therapy goals Barriers to Discharge (if identified) EVAL COMPLEXITY Occupational Profile Review of medical/therapy records and extensive additional review of physical,cognitive, or psychosocial history Performance Deficits Activities of daily living (ADLs), Instrumental activities of daily living (IADLs), Social participation, Body functions, Motor skills, Process skills, Social interaction skills,Habits, Routines, Roles, Personal, Physical, Social, Temporal Clinical Decision Making High Overall Eval Complexity Complex OT RECOMMENDATIONS Discharge Destination Acute rehab Discharge Equipment Defer to facility Recommendations for Referral to Another Service (if applicable) PLAN Planned OT Interventions ADL retraining, IADL retraining, Balance training, Bed mobility Training, Strengthening, Functionalmobility, Motor coordination training, Neuromuscular re-education, Cognitive retraining, Caregiver education OT Frequency 2 - 5 times per week OT Duration 2 weeks OT GOALS OT GOAL DETAILS Time Frame OT Goal 1: Pt will complete sit <> stand and toilet transfers independently using AE PRN 2 weeks OT Goal 2: Pt will complete total body dressing independently 2 weeks OT Goal 3: Pt will complete grooming tasks independently while standing at sink level 2 weeks OT Goal 4: Pt will complete 2 consecutive tx sessions without requiring cues for safety 2 weeks Written by Elia Ang on 12/24/24 at 12:55 PM. * Progress Notes - Cliff Jay - 12/24/2024 9:30 AM EDT Physical Therapy Evaluation Patient Name: Dorota Flor Today's Date: 12/24/2024 PT Discharge Recommendations: Acute rehab Equipment Recommended: Defer to facility History Dorota Flor is 59 y.o. female admitted 12/24/2024 for work-up of Acute encephalopathy. Problem List Active Hospital Problems Diagnosis Date Noted Acute encephalopathy 12/24/2024 Debility 12/24/2024 Falls frequently 12/24/2024 Acute kidney injury superimposed on CKD ([facility]/HCC) 12/24/2024 Cirrhosis ([facility]) 12/24/2024 Metabolic acidosis 12/24/2024 Mood disorder ([facility]/HCC) 12/24/2024 Thyroid disease 10/06/2024 COPD (chronic obstructive pulmonary disease) ([facility]) 10/18/2023 Diabetes mellitus ([facility]/HCC) 10/18/2023 Presence of colostomy ([facility]) 10/18/2023 Essential hypertension 10/11/2020 Procedures Past Medical History Patient has a past medical history of Depression, Diabetes mellitus (CMS/HCC), Disease of thyroid gland, Disorder of the autonomic nervous system, unspecified, H/O heart artery stent, Liver disease, Personal history of other diseases of the musculoskeletal system and connective tissue, Personal history of other endocrine, nutritional and metabolic disease, Personal history of other endocrine, nutritional and metabolic disease, Personal history of other endocrine, nutritional and metabolic disease, Personal history of other mental and behavioral disorders, and Personal history of urinary calculi. Past Surgical History Patient has a past surgical history that includes Other surgical history (N/A); Lithotripsy (N/A); Other surgical history (N/A); and Colostomy. Precautions Medical Precautions: Fall precautions Subjective Patient agreeable to PT evaluation. Participants in Care Family/Caregiver Present: Yes Family/Caregiver: Adult Daughter Database Security Expert: Not Applicable Presentation Oxygen Therapy: None (Room air) Lines and Tubes: Intravenous access Pre-Session: Supine, Head of bed elevated, Lines intact Pre-Session Comments: RN agreeable to evaluation Post-Session: Supine, Head of bed elevated, Lines intact, RN notified, Call light in reach Post-Session Comments: All needs met, positioned to comfort and pressure relief Home Living/Set-up Lives With: Alone Home Type: House Home Adaptive Equipment: None Home Layout: One level Bathroom: Tub/Shower: Tub/Shower combo Bathroom: Toilet: Standard Prior Level of Function Receives Help From: No assist required prior to admission Level of Mobility: Ambulatory- community Mobility Union: Independent gait without device History of Falls: Yes (frequently) ADL Performance: Independent Patient/Family Goals Get stronger. Objective Pain Patient endorsed back pain, but did not numerically rate severity. RN notified. Patient currently being managed pharmacologically and positioned to comfort at session conclusion. Delirium Screening Rodney Agitation Sedation Scale (RASS): Alert and calm Confusion Assessment Method-ICU (CAM-ICU/PCAM-ICU) Feature 3: Altered Level of Consciousness: Negative Cognition Overall Cognitive Status: Impaired Arousal/Alertness: Delayed responses to stimuli Mood/Behavior: Alert, Flat affect, Confused (delayed processing and motor planning) Orientation Level: Oriented X4 Single Step Commands: With increased time, With repetition Multi-Step Commands: With increased time, With repetition, 50% of the time Method of Communication: Verbal Vision - Basic Assessment Baseline Vision: Glasses reading, Glasses distance Current Vision: Intact Tracking: Intact Vision Comments: daughter reports pt with increasing difficulty with depth perception x2-3 days, notably when attempting to light a cigarette she is unable to get flame near cigarette without multiple attempts Right Upper Extremity Examination RUE Assessment: Within Functional Limits Manual Muscle Testing - RUE: Within functional limits Sensation Light Touch: Right Upper Extremity: Mild impairment Left Upper Extremity Examination LUE ROM Assessment LUE Assessment: Within Functional Limits Manual Muscle Testing - LUE Manual Muscle Testing - LUE: Within functional limits Sensation Light Touch: Left Upper Extremity: Mild impairment Right Lower Extremity Examination RLE ROM Assessment RLE Assessment: Within Functional Limits Manual Muscle Testing - RLE Manual Muscle Testing - RLE: Within functional limits Sensation Light Touch: Right Lower Extremity: Mild impairment Left Lower Extremity Examination LLE Assessment: Within Functional Limits Manual Muscle Testing: Within functional limits Sensation Light Touch: Left Lower Extremity: Mild impairment Bed Mobility Bed Mobility Exam: Rolling/Turning Level of Union: Contact guard Physical/Nonphysical Assist: Verbal Cues, Minimal cues Bed Mobility Exam: Scooting/Bridging Level of Union: Contact guard Physical/Nonphysical Assist: Verbal Cues, Minimal cues Bed Mobility Exam: Supine to Sit Level of Union: Contact guard Physical/Nonphysical Assist: Verbal Cues, Minimal cues, HOB elevated (increased time) Bed Mobility Exam: Sit to Supine Level of Union: Contact guard Physical/Nonphysical Assist: Verbal Cues, Minimal cues, HOB elevated (increased time) Transfers Transfer Exam: Sit to stand Level of Union: Minimum assist (75% patient's effort) Physical/Nonphysical Assist: Set-up required, Verbal Cues, Nonverbal cues (demo/gestures), Minimal cues Assistive Device: Hand held assist Transfer Exam: Stand to Sit Level of Union: Minimum assist (75% patient's effort) Physical/Nonphysical Assist: Set-up required, Verbal Cues, Minimal cues Assistive Device: Hand held assist Ambulation Device: Hand held assist Apparatus: None Assistance: Minimum assistance, Moderate assistance Distance : 50ft total Balance Postural Appearance Posture: Forward head, Rounded shoulders Static Sitting Balance Static Sitting-Balance Support: Right upper extremity support, Left upper extremity support, Feet unsupported Stating Sitting - Interventions: CGA to min assist; demonstrated posterior leaning EOB Dynamic Sitting Balance Dynamic Sitting-Balance Support: No upper extremity support, Feet unsupported Dynamic Sitting-Balance: Lateral weight shifts, Anterior/Posterior weight shifts, Trunk control activities Dynamic Sitting - Interventions: min-mod assist while seated EOB due to posterior leaning, requiring assistance for correction and to maintain midline/upright orientation Static Standing Balance Static Standing-Balance Support: Right upper extremity support, Left upper extremity support Static Standing-Level of Assistance: Minimum assistance Dynamic Standing Balance Dynamic Standing-Balance Support: Right upper extremity support, Left upper extremity support Dynamic Standing-Balance: Lateral weight shifts, Anterior/Posterior weight shifts Dynamic Standing Level of Assistance: Minimum assistance Gait Training (11 minutes) Device: Hand held assist Apparatus: None Assistance: Minimum assistance, Moderate assistance, Minimal verbal cues, Moderate tactile cues Distance: 50ft total Gait Analysis: anterior leaning, difficulty with step initiation and sequencing, downward gaze, shortened stride with toe heel pattern, mild to moderate unsteadiness, slow speed/rodney Gait Training Interventions: verbal and tacile cueing for upright posture, facilitation with step initiation, and increasing stride; stability provided at posterior pelvis for improve anterolateral weight shifting for appropriate and safe LE advancement with GARDE MANGER for support due to unsteadiness Standardized Assessments Standardized Assessments Standardized Assessments: [facility] 6-Clicks Mobility Assessment [facility] 6-Clicks Mobility Assessment Difficulty patient has turning over in bed (including adjusting bedclothes, sheets, and blankets)?:None Difficulty patient has sitting down on and standing up from a chair with arms (wheelchair, bedside commode, etc.)?: A little Difficulty patient has moving from lying on back to sitting on the side of the bed?: A little How much help does the patient need moving to and from a bed to a chair (including a wheelchair)?: A little How much help does the patient need to walk in hospital room?: A little How much help does the patient need climbing 3-5 steps with a railing?: A lot [facility] 6-Clicks Mobility Assessment Total : 18 Assessment Patient demonstrated good effort and toleration to PT evaluation of global mobility presenting withAMS and falls. Patient most limited due to impaired cognition and motor planning, decreased functional endurance/strength, and impaired balance. Patient only able to ambulate ~50ft with GARDE MANGER prior to r equiring rest break. Patient currently unable to safely ambulate functional household or community distances independently and poses as fall risk. VSS throughout without acute adverse effects noted. Given the patient's current functional status, ongoing care needs, and prior level of independence,discharge to an acute rehabilitation facility is medically appropriate and strongly recommended. This level of care is necessary to provide the intensity, frequency, and duration of skilled therapy services required to address the patient???s deficits in mobility, safety, and self-care. The patient???s condition cannot be managed effectively or safely in a lower level of care without risking complications or hospital readmission. Patient may continue to reap benefits from receiving skilled inpatient physical therapy while admitted to address amalgamation of impairments in aims to decrease patient's participation restrictions and activity limitations, increase safety awareness, decrease fall risk, and maximize independence. Impairments: Decreased endurance, ventilation, and/or gas exchange, Impaired locomotion, Impaired motor planning, Impaired functional mobility/transfers, Pain, Decreased strength, Impaired balance, Impaired cognition/safety awareness, Impaired executive functioning, Impaired postural/trunk control,Impaired gait dynamics/performance, Impaired sensation/sensory processing, Impaired motor cordination/control Activity Limitations: Inability to sit independently, Inability to ambulate independently, Inability to ambulate community distances, Inability to complete ADLs independently, Inability to transfer independently, Inability to ambulate household distances Participation Restrictions: Self-care, Home management, Community leisure Activity Tolerance: Tolerates 30 min activity with multiple rests Evaluation/Treatment Tolerance: Patient limited by pain Diagnosis: impaired functional mobility Rehab Potential: Good, to achieve stated therapy goals Barriers to Discharge: Comorbidities Eval Complexity History Profile: 1 - 2 personal factors and/or comorbidities Clinical Presentation: Evolving clinical presentation with changing characteristics Clinical Decision Making: Moderate complexity PT Recommendations Discharge Destination: Acute rehab Discharge Equipment: Defer to facility Plan Planned PT Interventions Balance training, Strengthening, Bed mobility training, Stretching, Gait training, Postural re-education, Transfer training, Orthotic fitting/training, Functional Mobility, ROM PT Frequency 2 - 5 times per week PT Duration 2 weeks Goals PT GOAL DETAILS Time Frame PT Goal 1: Patient to perform supine <> sit IND with HOB flat and no use of bed rails to simulate home environment and decrease caregiver burden. 2 weeks PT Goal 2: Patient to perform sit <> stand and bed <> chair with MOD I/LRAD to improve functional mobility and independence. 2 weeks PT Goal 3: Patient to ambulate >350ft on even surface with MOD I/LRAD to improve functional mobility. 2 weeks Written by Cliff Jay on 12/24/24 at 11:58 AM. * Progress Notes - Prabhjot Mehta MD - 12/24/2024 9:08 AM EDT Images from the original note were not included. Hospital Medicine Progress Note Patient Name: Dorota Flor Date: 12/24/24 Hospital Day: 0 Hospital Course/Summary 59F PMH MASH cirrhosis, CAD s/p stents (2017), PVCs s/p ablation (1999), HTN, HLD, T2DM, CKD2, chronic constipation s/p colostomy w/ revision, hypothyroidism, GERD fibromyalgia & bipolar disorder[facility]ed [facility] 12/23-03/2025 accompanied by adult daughter w/ increasing confusion x 3 weeks, multiple recent falls (unknown if head strikes or LOC) & generalized weakness. At admission, daughter reported patient had been non-adherent to outpatient lactulose. Exam in ED significant for chronically ill-appearing adult female w/ abnormal gait & coordination & right elbow abrasions. CBC showed minimal leukocytosis & mild thrombocytopenia. INR minimally elevated (1.2). Chemistry labs showed minimal hyponatremia, decreased serum bicarbonate, anion gap WNL, elevated Cr/decreased GFR, elevated BUN & mildly elevated ALP. Ammonia & lactate WNL. Troponin minimally elevated x 2 w/o significant delta. VBG showed decreased pH w/ pCO2 WNL & elevated pO2. UA w/ glucosuria, protein, trace leukocytes & pyuria w/o nitrite, bacteria or squamous cells. EKG NSR w/ incomplete RBBB. CT head & cervical spine negative acute intracranial abnormality & negative for acute fracture or traumatic subluxation of cervical spine. CXR negative for acute abnormality. XR elbow right negative for acute fracture or dislocation. XR pelvis negative for acute fracture. U/S renal unremarkable w/o evidence of hydronephrosis. Then admitted to hospital medicine for further management of acute encephalopathy suspected 2/2 hepatic encephalopathy from lactulose non-adherence & FLORENTIN. Subjective Interval History: No new acute events No new acute complaints Per daughter, mental status has mildly improved since initial ED presentation Daughter also reported that patient recently seen by PCP who decreased doses of multiple outpatientprescriptions (buspirone down to 10 mg BID, pregabalin down to 75 mg BID) ROS: Review of Systems Unable to perform ROS: Other Altered mental status Objective Vitals: Vitals: 12/24/24 0255 12/24/24 0346 12/24/24 0545 12/24/24 0634 BP: 120/64 131/55 BP Location: Right arm Left arm Patient Position: Sitting Lying Pulse: 61 56 Resp: 18 16 16 Temp: 37 ??C (98.6 ??F) 36.3 ??C (97.3 ??F) TempSrc: Oral Oral SpO2: 93% 91% Weight: 67.6 kg (149 lb) Height: 1.499 m (4' 11 ) BMI: Body mass index is 30.09 kg/m??. 1 No intake/output data recorded. 2 No intake or output data in the 24 hours ending 12/24/24 0908 Physical Exam Constitutional: General: She is not in acute distress. Appearance: She is ill-appearing. HENT: Head: Normocephalic and atraumatic. Cardiovascular: Rate and Rhythm: Normal rate and regular rhythm. Pulses: Normal pulses. Heart sounds: No murmur heard. Pulmonary: Effort: Pulmonary effort is normal. No respiratory distress. Abdominal: General: There is distension. Palpations: Abdomen is soft. Tenderness: There is no abdominal tenderness. Musculoskeletal: Right lower leg: No edema. Left lower leg: No edema. Neurological: Mental Status: She is alert. She is disoriented. Labs & Imaging Labs: Renal Panel: Lab Results Component Value Date NA 135 (L) 12/24/2024 K 4.1 12/24/2024 CL 104 12/24/2024 CO2 16 (L) 12/24/2024 BUN 70 (H) 12/24/2024 CA 8.9 09/22/2020 PHOS 3.1 10/15/2020 MBD: Lab Results Component Value Date CALCIUM 9.8 12/24/2024 CAION 5.1 12/24/2024 PHOS 3.1 10/15/2020 CBC: Lab Results Component Value Date WBC 10.89 (H) 12/24/2024 RBC 5.52 (H) 12/24/2024 HGB 15.4 12/24/2024 HCT 44.0 12/24/2024 PLT 122 (L) 12/24/2024 MCV 80 12/24/2024 MCH 27.9 12/24/2024 MCHC 35.0 12/24/2024 RDW 16.9 (H) 12/24/2024 NRBC 0.0 12/24/2024 Iron studies: No results found for: TIBC Imaging: Imaging reviewed by me. US Renal Complete Result Date: 12/24/2024 Unremarkable renal ultrasound. No hydronephrosis. CRITICAL RESULT: No. COMMUNICATION: Per this written report. Drafted by Christin Hoyt DO on 12/24/2024 8:50 AM Final report signed by Christin Hoyt DO on 12/24/2024 8:53 AM XR Pelvis 1 or 2 Views Result Date: 12/24/2024 No acute pelvic fracture. CRITICAL RESULT: No. COMMUNICATION: Per this written report. Preliminary report signed by Madeline More MD on 12/24/2024 5:28 AM By electronically signing this report, I, the attending physician, attest that I have personally reviewed the images/data for the above examination(s) and agree with the final edited report. Drafted by Madeline More MD on 12/24/2024 5:26 AMFinal report signed by Pablo Willard MD on 12/24/2024 5:30 AM XR Elbow Right 3+ View Result Date: 12/24/2024 No acute fracture or dislocation. CRITICAL RESULT: No. COMMUNICATION: Per this written report. Drafted by Pablo Willard MD on 12/24/2024 5:24 AM Final report signed by Pablo Willard MD on 12/24/2024 5:25 AM XR Chest 1 View Result Date: 12/24/2024 Coronary artery stents. IMPRESSION: No acute abnormality. CRITICAL RESULT: No. COMMUNICATION: Per this written report. 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 Drafted by Pablo Willard MD on 12/24/2024 5:11 AM Final report signed by Pablo Willard MD on 12/24/2024 5:11 AM Result Date: 12/24/2024 No acute intracranial abnormality. No acute fracture or traumatic subluxation of the cervical spine. CRITICAL RESULT: No. COMMUNICATION: Per this written report. 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 Drafted by Pablo Willard MD on 12/24/2024 5:11 AM Final report signed by Pablo Willard MD on 12/24/2024 5:11 AM Result Date: 12/24/2024 No acute intracranial abnormality. No acute fracture or traumatic subluxation of the cervical spine. CRITICAL RESULT: No. COMMUNICATION: Per this written report. Drafted by Pablo Willard MD on 12/24/2024 5:06 AM Final report signed by Pablo Willard MD on 12/24/2024 5:09 AM EKG/Echocardiogram: Encounter Date: 12/24/24 EKG now - STAT (adult) Result Value EKG DIAGNOSIS CLASS Abnormal Ventricular Rate 61 Atrial Rate 61 MT Interval 138 QRSD Interval 98 QT Interval 408 QTC Interval 410 P Crane 62 R Crane 18 T Wave Crane 106 Diagnosis Normal sinus rhythm Diagnosis Possible Left atrial enlargement Diagnosis Incomplete right bundle branch block Diagnosis ST & T wave abnormality, consider lateral ischemia Diagnosis Abnormal ECG *Note: Due to a large number of results and/or encounters for the requested time period, some results have not been displayed. A complete set of results can be found in Results Review. No echocardiogram results found for the past 12 months MAR: Scheduled Medication(s): Current Scheduled Medications[1] Continuous Infusion(s): Current Continuous Medications[2] As Needed (PRN) Medications: Current PRN Medications[3] Assessment & Plan Principal Problem: Acute encephalopathy Active Problems: COPD (chronic obstructive pulmonary disease) (CMS/HCC) Diabetes mellitus (CMS/HCC) Essential hypertension Presence of colostomy ([facility]/HCC) Thyroid disease Debility Falls frequently Acute kidney injury superimposed on CKD (CMS/HCC) Cirrhosis (CMS/HCC) Metabolic acidosis Mood disorder (CMS/HCC) 59F PMH MASH cirrhosis, CAD s/p stent (2017), PVCs s/p ablation (1999), HTN, HLD, T2DM, CKD2, chronic constipation s/p colostomy w/ revision, hypothyroidism, GERD fibromyalgia & bipolar disorder p/w increasing confusion x 3 weeks, multiple recent falls & generalized weakness in setting of not being adherent w/ lactulose & rifaximin found to have acute toxic metabolic encephalopathy 2/2 hepatic encephalopathy & polypharmacy in setting of FLORENTIN. #Acute Toxic Metabolic Encephalopathy (ATME) #Polypharmacy -Present at admission -Developed ~3 weeks prior to admission & progressively worsened -Suspect multifactorial etiology - DDX includes but not limited hepatic encephalopathy & polypharmacy in setting of FLORENTIN PLAN -Management of underlying/contributing etiologies as detailed elsewhere in A&P -Avoid/Decrease doses of centrally-acting medications as able -Delirium Precautions: -Delirium can persist for days, weeks, to months after precipitating incident regardless of treatment of underlying etiology, if identified. Recommend delirium precautions as follows: -While there is a black box warning for the use of antipsychotics in geriatric patients with MNCD, delirium is also associated w/ increased risk of all-cause mortality. Therefore, benefit of short-term anti-psychotic use outweighs risks & may be used for treatment of delirium when used judiciously. -Please enforce strict maintenance of sleep-wake cycle. Keep patient awake as able during daylight hours & please keep curtains open. At night dim lights, TV off if possible & minimize interruptions. Schedule Melatonin 3-6mg at bedtime, which has been shown to be beneficial in delirium & promote sleep cycle regularity. -Cluster care when possible at night including sleep-friendly vital signs (once overnight in early evening/bedtime) if safe/medically stable -Please minimize the use of restraints as restraints may worsen delirium -Provide frequent reorientation -Employ early & frequent mobility (especially during the day) including up to chair for meals -Ensure patient has access to glasses/hearing aids as needed -Maintain appropriate fluid and electrolyte levels, strict I/O monitoring as appropriate -Make comfort PRNs available for pain & constipation -Encourage presence of loved ones at bedside -Minimize use of deliriogenic medications including benzodiazepines, anticholinergics & antihistaminergics -Avoid concurrent use of IM Zyprexa and parenteral benzodiazepines as there is drug-drug interaction that increases risk for respiratory depression #Hepatic Encephalopathy #MASH Cirrhosis MELD 3.0: 19 at 12/24/2024 2:33 PM MELD-Na: 18 at 12/24/2024 2:33 PM Calculated from: Serum Creatinine: 1.6 mg/dL at 12/24/2024 2:33 PM Serum Sodium: 131 mmol/L at 12/24/2024 2:33 PM Total Bilirubin: 0.4 mg/dL (Using min of 1 mg/dL) at 12/24/2024 3:31 AM Serum Albumin: 4.4 g/dL (Using max of 3.5 g/dL) at 12/24/2024 2:33 PM INR(ratio): 1.2 at 12/24/2024 3:31 AM Age at listing (hypothetical): 59 years Sex: Female at 12/24/2024 2:33 PM -Ascites: No -Hx of SBP: No -Esophageal Varices: No -EGD: 05/10/2024 - Normal appearing esophagus w/o varices, mildly atrophic w/ erythematous mucosa & erosion & normal appearing duodenum -Hx of HE: Yes -Follows w/ [facility] - Last seen in clinic 12/02/2024 -Prescribed furosemide 20 mg daily w/ potassium chloride 20 mEq daily, lactulose 30 mL TID & propranolol -Per last GI clinic note (12/02/2024) patient was continued on rifaximin but appears that last prescription fill was 02/04/2024 -Per daughter, patient was NOT taking lactulose as prescribed & was NOT taking rifaximin at allprior to admission -Vitamin B12 & folate (12/24/2024) WNL -No evidence indicative of significant infection currently PLAN -Lactulose -Propranolol -Fluid restriction -Sodium restricted diet -Monitor electrolytes, renal function, LFTs & INR -F/U U/S abdomen #Acute Kidney Injury (FLORENTIN)-on-CKD2 -Present at admission -Suspect likely prerenal -Appears baseline Cr ~0.9-1.0 & GFR 60s-70s -Estimated Creatinine Clearance: 33.2 mL/min (A) (by C-G formula based on SCr of 1.6 mg/dL (H)). PLAN -Hold furosemide -Monitor Cr/GFR -Monitor UOP -Avoid nephrotoxic agents as able -Renally dose medications as necessary #Multiple Recent Falls -Per daughter report - Unknown if head strikes or LOC -Vitamin D (12/24/2024) WNL PLAN -PT/OT -Fall precautions #T2DM -Glucose acutely uncontrolled -Uncertain re: chronic glucose control -Prescribed empagliflozin, linagliptin & glargine 50 units daily as outpatient PLAN -Glargine 25 units daily -SSI Lispro - Standard -Consistent carbohydrate diet -F/U HbA1c #Chronic Constipation s/p Colostomy w/ Revision -Prescribed prucalopride succinate & linaclotide as outpatient PLAN -Hold antidiarrheal agents while restarting lactulose -Colostomy care #CAD s/p Stents #PVCs s/p Ablation -Appears stable -Per chart review, stent 2017 & PVC ablation 1999 -Prescribed ASA, rosuvastatin, ranolazine & propranolol as outpatient PLAN -ASA -Rosuvastatin -Ranolazine -Propranolol #HTN -BP controlled -Prescribed diltiazem as outpatient PLAN -Monitor clinically #Hypothyroidism -TSH minimally decreased & FT4 (12/24/2024) WNL -Prescribed levothyroxine 125 mcg daily as outpatient PLAN -Levothyroxine #HLD -Prescribed rosuvasatun as outpatient PLAN -Rosuvastatin #GERD -Prescribed pantoprazole as outpatient PLAN -Pantoprazole #Fibromyalgia -Prescribed pregabalin 150 mg QAM & 75 MG QPM as outpatient but, daughter reported that PCP recently decreased dose to 75 BID PLAN -Pregabalin #Bipolar Disorder #Anxiety #Chronic Outpatient Prescription Benzodiazepine Use -Prescribed buspirone, lamotrigine & venlafaxine as well as alprazolam 1 mg as outpatient but, daughter reported that PCP recently decreased buspirone to 10 mg BID PLAN -Buspirone -Lamotrigine - Monitor level -Venlafaxine -Alprazolam PRN #Diet: Regular, sodium restriction, fluid restriction #VTE Prophylaxis: This patient does not have an active medication from one of the medication groupers. #Disposition: TBD #Code Status: Full Code #Bowel Regimen: As detailed elsewhere in A&P Prabhjot Mehta MD, [facility] Medicine Secure chat preferred Pager [phone] Note to Patient: The Cures Act makes medical notes like these available to patients inthe interest of transparency. However, be advised this is a medical document. It is intended as peer-to peer-communication among professional medical care providers. It is written in medical language& may contain abbreviations or verbiage that are unfamiliar. It may appear blunt or direct. Medical documents are intended to carry relevant information, facts as evident & the clinical opinion of the practitioner. [1] sodium chloride, 10 mL, Intravenous, q12h [2] [3] PRN medications: Insert peripheral IV AND Saline lock IV AND sodium chloride AND sodium chloride * H&P - Lokesh Arredondo, SUEDING MACHINE TENDER, QUENTIN - 12/24/2024 6:27 AM EDTAssociated Order(s): Consult to [facility] Medicine - Jamar Images from the original note were not included. Consult to [facility] Medicine - Jamar Consult performed by: Lokesh Arredondo APRN, QUENTIN Consult ordered by: Martha Chang APRN Reason for consult: Acute on chronic encephalopathy Chief Complaint: Acute on chronic encephalopathy History of Present Illness: Dorota Flor is a 59 y.o. year-old female who has a past medical history significant for CAD s/p PCI in 2018, PVCs s/p ablation (1999), DM type II, HTN, GERD, MASH cirrhosis, CKD, chronic constipation s/p colostomy w/ revision, bipolar d/o, COPD, and nicotine dependence who presents to ED on12/24/24 due to acute on chronic encephalopathy, worsening physical function, reoccurring fall HPI was provided by patient's daughter at the bedside. Patient daughter reports that at baseline patient is functional independent, forgetful , lives alone, manages her medication, and care. However,over the past 3 weeks, patient has been experiencing worsening physical function associated with multiple falls. Reports that patient has fallen about 3 times in the past with hours prior to presentation. She also endorses worsening cognitive function, reports that patient is currently disoriented to time, situation, and experiences multiple episode of hypersomnia. Patient takes lactulose at baseline which daughter reports nonadherence however endorses colostomy output at baseline. She reports that patient has caused her on 12/23/2024 complaining that she fell, on presentation patient was somnolent, was complaining of bilateral flank pain which prompted presentation to the ED for further evaluation. Daughter denies head trauma, loss of consciousness, seizures fevers ,chills, dysuria Daughter is concerned about polypharmacy, poor home safety, and inadequate supervision. She feels patient can no longer take care of herself. In the ED, patient is afebrile, GCS of 14, hemodynamically stable. Initial labs were pertinent for WBC of 10.89,pH: 7.26 (L), pCO2: 39, pO2: 64 (H), HCO3: 18 (L) BE: ??, Lactate: 1.0,sCr: 1.73 (H), BUN: 70 (H), eGFR: 33.5, ED trauma scan was negative for acute fracture. Hospital Medicine was consulted and decision was made to admit for further workup and management Patient at bedside provided HPI, along with chart review. Review of Systems: Review of Systems Unable to perform ROS: Mental status change Past Medical History: Past Medical History[1] Surgical History: Surgical History[2] Family History: Family History[3] Social History: She reports that she has been smoking cigarettes. She started smoking about 42 years ago. She has a42.5 pack-year smoking history. She has been exposed to tobacco smoke. She has never used smokelesstobacco. She reports that she does not drink alcohol and does not use drugs. Travel History: Relevant Travel History: Travel Screening Question Response Have you been in contact with someone who was sick? No / Unsure Do you have any of the following new or worsening symptoms? None of these Have you traveled internationally or domestically in the last month? No Travel History Travel since 11/24/24 No documented travel since 11/24/24 Allergies: Hydrocodone, Hydrocodone-acetaminophen, Other, Ativan [lorazepam], Toradol [ketorolac tromethamine], and Tramadol Vital Signs: Visit Vitals BP 131/55 (BP Location: Left arm, Patient Position: Lying) Pulse 56 Temp 36.3 ??C (97.3 ??F) (Oral) Resp 16 Ht 1.499 m (4' 11 ) Wt 67.6 kg (149 lb) SpO2 91% BMI 30.09 kg/m?? OB Status Postmenopausal Smoking Status Every Day BSA 1.68 m?? Physical Exam: General: well developed, well-nourished female who presents in no apparent distress Physical Exam Vitals and nursing note reviewed. Constitutional: Appearance: Normal appearance. She is well-groomed. She is ill-appearing. HENT: Head: Normocephalic and atraumatic. Eyes: General: Lids are normal. Vision grossly intact. Gaze aligned appropriately. Pupils: Pupils are equal, round, and reactive to light. Cardiovascular: Rate and Rhythm: Normal rate and regular rhythm. Pulses: Radial pulses are 2+ on the right side and 2+ on the left side. Dorsalis pedis pulses are 2+ on the right side and 2+ on the left side. Posterior tibial pulses are 2+ on the right side and 2+ on the left side. Heart sounds: Normal heart sounds, S1 normal and S2 normal. Pulmonary: Effort: Pulmonary effort is normal. Breath sounds: Wheezing present. Abdominal: General: Bowel sounds are normal. Palpations: Abdomen is soft. Tenderness: There is no right CVA tenderness, left CVA tenderness, guarding or rebound. Comments: Ostomy bag present with output noted in the bag Musculoskeletal: General: Normal range of motion. Right upper arm: Normal. No swelling or edema. Left upper arm: Normal. No swelling or edema. Cervical back: Normal range of motion and neck supple. No edema or erythema. Right lower leg: No edema. Left lower leg: No edema. Right foot: Normal. Left foot: Normal. Skin: General: Skin is warm. Capillary Refill: Capillary refill takes less than 2 seconds. Coloration: Skin is not jaundiced or pale. Neurological: General: No focal deficit present. Mental Status: She is alert. Mental status is at baseline. She is disoriented. GCS: GCS eye subscore is 4. GCS verbal subscore is 4. GCS motor subscore is 6. Cranial Nerves: No cranial nerve deficit. Psychiatric: Attention and Perception: Attention and perception normal. Mood and Affect: Mood and affect normal. Speech: Speech normal. Behavior: Behavior normal. Behavior is cooperative. Thought Content: Thought content normal. Cognition and Memory: Memory is impaired. Labs (in last 24 hours): CBC: Lab Results Component Value Date WBC 10.89 (H) 12/24/2024 RBC 5.52 (H) 12/24/2024 HGB 15.4 12/24/2024 HCT 44.0 12/24/2024 PLT 122 (L) 12/24/2024 MCV 80 12/24/2024 MCH 27.9 12/24/2024 MCHC 35.0 12/24/2024 RDW 16.9 (H) 12/24/2024 NRBC 0.0 12/24/2024 Differential: Lab Results Component Value Date WBC 10.89 (H) 12/24/2024 NEUTOPHILPCT 56 12/24/2024 LYMPHOPCT 35 12/24/2024 MONOPCT 7 12/24/2024 EOSPCT 1 12/24/2024 Coagulation: Lab Results Component Value Date INR 1.2 (H) 12/24/2024 Renal: Lab Results Component Value Date NA 135 (L) 12/24/2024 K 4.1 12/24/2024 CL 104 12/24/2024 CO2 16 (L) 12/24/2024 BUN 70 (H) 12/24/2024 CREATININE 1.73 (H) 12/24/2024 GLUCOSE 146 (H) 12/24/2024 CALCIUM 9.8 12/24/2024 Liver: Lab Results Component Value Date AST 38 (H) 12/24/2024 ALT 32 12/24/2024 BILITOT 0.4 12/24/2024 Glucose: Lab Results Component Value Date PGLU 173 (H) 12/24/2024 Lab Results Component Value Date HGBA1C 6.60 (H) 11/17/2020 Microbiology: Results No results found for the last 48 hours. Imaging (in last 24 hours): XR Pelvis 1 or 2 Views Result Date: 12/24/2024 No acute pelvic fracture. CRITICAL RESULT: No. COMMUNICATION: Per this written report. Preliminary report signed by Madeline More MD on 12/24/2024 5:28 AM By electronically signing this report, I, the attending physician, attest that I have personally reviewed the images/data for the above examination(s) and agree with the final edited report. Drafted by Madeline More MD on 12/24/2024 5:26 AMFinal report signed by Pablo Willard MD on 12/24/2024 5:30 AM XR Elbow Right 3+ View Result Date: 12/24/2024 No acute fracture or dislocation. CRITICAL RESULT: No. COMMUNICATION: Per this written report. Drafted by Pablo Willard MD on 12/24/2024 5:24 AM Final report signed by Pablo Willard MD on 12/24/2024 5:25 AM XR Chest 1 View Result Date: 12/24/2024 Coronary artery stents. IMPRESSION: No acute abnormality. CRITICAL RESULT: No. COMMUNICATION: Per this written report. 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 Drafted by Pablo Willard MD on 12/24/2024 5:11 AM Final report signed by Pablo Willard MD on 12/24/2024 5:11 AM Result Date: 12/24/2024 No acute intracranial abnormality. No acute fracture or traumatic subluxation of the cervical spine. CRITICAL RESULT: No. COMMUNICATION: Per this written report. 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 Drafted by Pablo Willard MD on 12/24/2024 5:11 AM Final report signed by Pablo Willard MD on 12/24/2024 5:11 AM Result Date: 12/24/2024 No acute intracranial abnormality. No acute fracture or traumatic subluxation of the cervical spine. CRITICAL RESULT: No. COMMUNICATION: Per this written report. Drafted by Pablo Willard MD on 12/24/2024 5:06 AM Final report signed by Pablo Willard MD on 12/24/2024 5:09 AM Assessment and plan: Principal problem: Acute encephalopathy - Principal Problem: Acute encephalopathy Active Problems: COPD (chronic obstructive pulmonary disease) (CMS/HCC) Diabetes mellitus (CMS/HCC) Essential hypertension Presence of colostomy (CMS/HCC) Thyroid disease Debility Falls frequently Acute kidney injury superimposed on CKD (CMS/HCC) Cirrhosis (CMS/HCC) Metabolic acidosis Mood disorder (CMS/HCC) Dorota Flor is a 59 y.o. year-old female who has a past medical history significant for CAD s/p PCI in 2018, PVCs s/p ablation (1999), DM type II, HTN, GERD, MASH cirrhosis, CKD, chronic constipation s/p colostomy w/ revision, bipolar d/o, COPD, and nicotine dependence who presents to ED on12/24/24 due to acute on chronic encephalopathy, worsening physical function, reoccurring fall Problems Assessment and Plan #Non anion gap metabolic acidosis #Acute on chronic encephalopathy In setting of Palm cirrhosis -Likely multifactorial given possible hepatic encephalopathy, infection, metabolic derangement, andconcern for polypharmacy -CTH with no acute intracranial abnormality -Ammonia 46, BUN 70 -LKN: Current GCS: 14 Plan -Resume lactulose and titrate for goal BM 3x/day - Does not appear to be on rifaximin -Follow infectious w/u - holding on abx given no clear source at this time -Recommend holding home Xanax #Cirrhosis c/b HE -Dx MASH cirrhosis via liver biopsy 07/2023 -EGD 04/2024 wo varices; just live with no varices -No hx ascites but is on Lasix daily -HCC none per recent GI note -Abdomen soft and nontender. Asterixis present on exam -MELD ? Plan -Recommend hepatology consult in the AM -Continue lactulose. Does not appear to be on rifaximin -Hold Lasix ISO FLORENTIN/possible HRS? -Daily protein intake of 1.2 to 1.5 g/kg and caloric intake of 35 Kcal/kg, thiamine, vitamin B complex supplementation -2g/day Na diet. No NSAIDS. APAP <2g/day #FLORENTIN on CKD -Cr 1.73 (increased from 1.21 11/2024) -Concern for possible HRS? Plan -Avoid nephrotoxins -Urine studies ordered -Trend Cr and consider albumin challenge if worsening - Us renal pending #Worsening debility #At high risk for falls -PT/OT -Fall precautions Chronic Medical Conditions #PVCs s/p ablation (1999) #CAD s/p PCI (2018)- Resume ASA, rosuvastatin, ranolazine. Plavix stopped per last cardiology note #T2DM- SSI ordered- home medication Lantus 50 units daily; 20 ordered. [place] 120 #HTN- Holding propranolol ISO bradycardia #Hypothyroidism- Continue home synthroid #Chronic constipation s/p colostomy with revision- On linzess #Bipolar Disorder- Pending official med rec #COPD- Not in acute exacerbation. DuoNebs PRN. #Nicotine Dependence- Offer cessation counseling and NRT as needed while inpatien #GERD -continue PPI Chronic - Body mass index is 30.09 kg/m??. - complicates all aspects of care Medications Home Medications Current Outpatient Medications Medication Instructions Accu-Chek Guide test strip DIRECTED TO TEST THREE TIMES DAILY Alpha tocopherol (VITAMIN E) 200 Units, ZZ Daily RT ALPRAZolam (Xanax) 1 MG tablet TAKE ONE TABLET BY MOUTH THREE TIMES DAILY MAY CAUSE DROWSINESS aspirin (ASPIRIN) 81 mg, ZZ Daily RT betamethasone dipropionate 0.05 % EX cream APPLY TOPICALLY TO THE AFFECTED AREA(S) TWICE DAILY DIRECTED busPIRone (BUSPAR) 20 mg, 2 times daily cholecalciferol (VITAMIN D3) 2,000 Units, ZZ Daily RT cyanocobalamin (VITAMIN B-12) 1,000 mcg, ZZ Daily RT dilTIAZem CD (CARDIZEM CD) 120 mg, Daily esomeprazole (NEXIUM) 20 mg, Daily fenofibrate micronized (LOFIBRA) 134 mg, Daily FeroSul 325 mg, 3 times weekly furosemide (LASIX) 20 mg, Daily glyBURIDE (DIABETA) 5 mg, Daily Jardiance 25 MG lactulose (CHRONULAC) 20 g, Oral, 3 times daily lamoTRIgine (LAMICTAL) 100 mg, 2 times daily Lantus SoloStar 100 UNIT/ML injection pen levothyroxine (SYNTHROID, LEVOXYL) 112 mcg, Daily linaCLOtide (Linzess) 290 MCG capsule 1 capsule, Daily before breakfast magnesium oxide (MAG-OX) 400 mg, 2 times daily Motegrity 2 MG tablet NON FORMULARY 10 mg, 4 times daily ondansetron (ZOFRAN) 4 mg, Every 6 hours PRN pantoprazole (PROTONIX) 40 mg, Daily potassium chloride CR (Klor-Con M20) 20 MEQ ER tablet 20 mEq, 2 times daily pregabalin (LYRICA) 75 mg, 3 times daily propranolol LA (INDERAL LA) 160 mg, Daily ranolazine (RANEXA) 500 mg, 2 times daily rifAXIMin (XIFAXAN) 550 mg, Oral, 2 times daily rosuvastatin (CRESTOR) 20 mg, ZZ Daily RT Tradjenta 5 mg, Daily Vascepa 1 g capsule venlafaxine XR (EFFEXOR-XR) 150 mg, ZZ Daily RT Scheduled: Current Scheduled Medications[4] Continuous: Current Continuous Medications[5] As needed: sodium chloride, 10 mL, PRN Fluids: Electrolytes: Continue to monitor and replace as appropriate Diet: NPO diet NPO except: Ice chips, Sips with meds, Sips of clear liquids DVT prophylaxis: SCDs + SCDs only Code status: Full Code Follow-up visit Future Appointments Date Time Provider Department Center 04/09/2025 4:00 PM Jordan Hanson MD [facility] 06/22/2025 4:00 PM Elin Kelly MD [facility] Lokesh Arredondo APRN, DNP [1] Past Medical History: Diagnosis Date Depression [...] urinary calculi History of kidney stones [2] Past Surgical History: Procedure Laterality Date COLOSTOMY LITHOTRIPSY N/A lithotripsy from [facility] OTHER SURGICAL HISTORY N/A Liver Biopsy from [facility] OTHER SURGICAL HISTORY N/A ostomy from [facility] [3] Family History Problem Relation Name Age of Onset Heart attack Mother Heart disease Sister Hypertension Other [4] sodium chloride, 10 mL, Intravenous, q12h [5] * ED Provider Notes - Martha Chang APRN - 12/24/2024 2:54 AM EDT - HPI Chief Complaint Patient presents with Altered Mental Status This is a 59-year-old female patient, with known and complex medical history as stated below, presenting to this emergency department for evaluation of ongoing issues with recurrent falls, increased confusion, progressive weakness with severe activity intolerance and difficulties with completing ADLs independently. Primary history is obtained from the daughter at bedside, who has brought the patient in for evaluation. She reports all the above symptoms, and specifically indicates thatthe patient had 2 falls while at home yesterday. She is concerned about her mother living independently at this time. There is some concern about polypharmacy issues, which may be contributing to hersymptoms. The daughter indicates that her mother frequently gets her routine medications mixed up. Patient History Past Medical History[1] Surgical History[2] Family History[3] Social History[4] Allergies: Allergies[5] Physical Exam ED Triage Vitals [12/24/24 0255] Temp Heart Rate Resp BP 37 ??C (98.6 ??F) 61 18 120/64 SpO2 Temp Source Heart Rate Source Patient Position 93 % Oral Monitor Sitting BP Location FiO2 (%) Right arm -- Physical Exam Vitals and nursing note reviewed. Constitutional: Appearance: She is well-developed and well-groomed. She is ill-appearing (chronically). HENT: Head: Normocephalic and atraumatic. Right Ear: External ear normal. Left Ear: External ear normal. Nose: Nose normal. Mouth/Throat: Mouth: Mucous membranes are moist. Pharynx: Oropharynx is clear. Eyes: Extraocular Movements: Extraocular movements intact. Cardiovascular: Rate and Rhythm: Normal rate and regular rhythm. Pulses: Normal pulses. Radial pulses are 2+ on the right side and 2+ on the left side. Heart sounds: Normal heart sounds. Pulmonary: Effort: Pulmonary effort is normal. Breath sounds: Normal breath sounds. Abdominal: General: Abdomen is flat. Palpations: Abdomen is soft. Musculoskeletal: General: Signs of injury (Right Elbow Abrasions) present. Normal range of motion. Cervical back: Normal range of motion and neck supple. No tenderness. Skin: General: Skin is warm and dry. Capillary Refill: Capillary refill takes less than 2 seconds. Neurological: General: No focal deficit present. Mental Status: She is alert. GCS: GCS eye subscore is 4. GCS verbal subscore is 3. GCS motor subscore is 6. Motor: Motor function is intact. Coordination: Coordination abnormal. Gait: Gait abnormal. Psychiatric: Behavior: Behavior is cooperative. [place] Coma Scale Score: 14 ED Course & MDM This patient was seen and evaluated in this ED in conjunction with Dr. Rodríguez. - Differential Diagnosis: Can include, but is not limited to, hepatic encephalopathy, hyper/hypoglycemia, electrolyte imbalances, anemia, CHI/ICH, polypharmacy effect, intoxication. In order to fully explore the differential diagnosis the following treatments and tests were ordered: A 12 lead EKG was conducted and reviewed by myself as well as by the ED attending. By my interpretation, this EKG demonstrates a sinus rhythm with a ventricular rate of 61 beats per minute and QRS duration of 98 milliseconds. The axis does appear normal. There are no overt ST elevations or T-wave inversions which would be concerning for active ACS or acute MT. Complete laboratory workup as below was ordered and reviewed by me. Mild elevation in creatinine was noted. To high sensitivity troponin studies at a 2 hour interval were noted to be slightly elevated, but flat. Blood glucose was noted to be slightly elevated. Screening UA was pending at the time of this dictation. Given the patient's history of falls, plain film imaging of the chest and pelvis were conducted in addition to noncontrasted CT scans of the head and C-spine. All these images were reviewed by the on-call radiologist, with findings as noted in their reports. The patient was reassessed and found to be overall physically stable on exam. She had no focal neuro deficits. She did remain grossly lethargic and still did not appear to be safe for discharge back to her current living conditions. The daughter at bedside did attest that this as well. Given her elevated risk of injury and worsening physical debility, we did recommend admission to the hospital. I had an interactive discussion with the on-call hospital medicine team. We discussed all the above information. They did come to the ED to see the patient. Please see their note for specifics. The patient will be admitted to their service for further evaluation/treatment/coordination ofcare. All Other Orders Ordered Status Ordering Provider 12/24/24 0704 Intake and output Every 6 hours Acknowledged MADUJIBEYA, LOKESH N 12/24/24 0704 Glucose Finger Stick Q6 Every 6 hours Start Status Ordering Provider 12/24/24 1200 Scheduled MADUJIBEYA, LOKESH N 12/24/24 1800 Scheduled MADUJIBEYA, LOKESH N 12/25/24 0000 Scheduled MADUJIBEYA, LOKESH N 12/25/24 0600 Scheduled MADUJIBEYA, LOKESH N 12/25/24 1200 Scheduled MADUJIBEYA, LOKESH N 12/25/24 1800 Scheduled MADUJIBEYA, LOKESH N 12/26/24 0000 Scheduled MADUJIBEYA, LOKESH N 12/26/24 0600 Scheduled MADUJIBEYA, LOKESH N 12/26/24 1200 Scheduled MADUJIBEYA, LOKESH N 12/26/24 1800 Scheduled MADUJIBEYA, LOKESH N 12/27/24 0000 Scheduled MADUJIBEYA, LOKESH N 12/27/24 0600 Scheduled MADUJIBEYA, LOKESH N 12/27/24 1200 Scheduled MADUJIBEYA, LOKESH N 12/27/24 1800 Scheduled MADUJIBEYA, LOKESH N 12/28/24 0000 Scheduled MADUJIBEYA, LOKESH N 12/28/24 0600 Scheduled MADUJIBEYA, LOKESH N 12/28/24 1200 Scheduled MADUJIBEYA, LOKESH N 12/28/24 1800 Scheduled MADUJIBEYA, LOKESH N Acknowledged MADUJIBEYA, LOKESH N 12/24/24 0704 Vital Signs Every 4 hours Placed in And Linked Group Acknowledged MADUJIBEYA, LOKESH N 12/24/24 07 Pulse Oximetry Every 4 hours Placed in And Linked Group Acknowledged MADUJIBEYA, LOKESH N 12/24/24 07 Initiate Contact D Isolation Continuous Comments: Added via Instant Order OPA Acknowledged VERONIKA MENDEZ 12/24/24703 Telemetry Monitoring for Overdoes, Poisoning, Intoxication or Withdrawal Until discontinued Acknowledged MADUJIBEYA, LOKESH N 12/24/24 07 Sequential compression device Until discontinued Comments: SCDs must be in place and turned on EXCEPT when ACTIVELY ambulating. Acknowledged MADUJIBEYA, LOKESH N 12/24/24 07 Okay To Give Nicotine Replacement Until discontinued Acknowledged MADUJIBEYA, LOKESH N 12/24/24 07 PT eval and treat Until therapy completed Acknowledged MADUJIBEYA, LOKESH N 12/24/24 07 OT eval and treat Until therapy completed Acknowledged MADUJIBEYA, LOKESH N 12/24/24 07 Nutrition Consult Once Comments: malnutrition Provider: (Not yet assigned) Acknowledged MADUJIBEYA, LOKESH N 12/24/24 07 POWER [employer]SE ENGINEER eval and treat Until therapy completed Acknowledged MADUJIBEYA, LOKESH N 12/24/24 0704 Full code Continuous Acknowledged LOLAURIMARCO LOKESH N 12/24/24 0704 NPO diet NPO except: Ice chips, Sips with meds, Sips of clear liquids Diet effective now Acknowledged LAW LOKESH N 12/24/24 0704 Continuous Pulse Oximetry (Needs additional Telemetry Order too) Until discontinued Acknowledged LAW LOKESH N 12/24/24 0704 Mobility Orders Until discontinued Acknowledged LAW LOKESH N 12/24/24 07 Notify physician (specify parameters) Until discontinued Acknowledged LAW LOKESH N 12/24/24 0704 Insert peripheral IV Once Placed in And Linked Group Acknowledged LAW LOKESH N 12/24/24 07 Saline lock IV Once Placed in And Linked Group Acknowledged LAW LOKESH N 12/24/24 07 Admit to inpatient Once Acknowledged LAW LOKESH N 12/24/24 0626 Consult to [facility] Once Specialty: Internal Medicine Provider: (Not yet assigned) Completed MARTHA CHANG P 12/24/24 0626 ED to floor bed request Once Completed MARTHA CHANG P 12/24/24 0410 Troponin T, High Sensitivity, 2 Hour, Plasma PROCEDURE ONCE Final result MARTHA CHANG P 12/24/24 0456 Nursing communication - ED Nursing Once Acknowledged MARTHA CHANG P 12/24/24 0322 XR Pelvis 1 or 2 Views Once Final result MARTHA CHANG P 12/24/24 0322 XR Elbow Right 3+ View Once Final result MARTHA CHANG P 12/24/[address] Head wo IV Contrast Once Edited Result - FINAL MARTHA CHANG P 12/24/[address] Cervical Spine wo IV Contrast Once Edited Result - FINAL MARTHA CHANG P 12/24/24 0322 XR Chest 1 View One time imaging Final result MARTHA CHANG P 12/24/24 0303 Blood gas panel, venous STAT Final result MARTHA CHANG P 12/24/24 0303 Troponin now and 120 min STAT Final result MARTHA CHANG P 12/24/24 0303 Ammonia STAT Final result KAMI CHANGREY P 12/24/24 0303 Urinalysis with reflex microscopic AND reflex culture (IF UTI SUSPECTED) STAT Acknowledged MARTHA CHANG P 12/24/24 0303 EKG now - STAT (adult) Once Preliminary result KAMI CHANGREY P 12/24/24 0303 Urinalysis with reflex microscopic (Culture NOT Included) PROCEDURE ONCE Ordered KAMI CHANGREY P 12/24/24 0303 Urine Bishop Panel PROCEDURE ONCE Ordered KAMI CHANGREY P 12/24/24 0303 Saline lock IV Once Acknowledged KAMI CHANGREY P 12/24/24 0303 CBC w/diff STAT Final result MARTHA CHANG P 12/24/24 0303 PT-INR STAT Final result MARTHA CHANG P 12/24/24 0303 CMP STAT Final result MARTHA CHANG P 12/24/24 0258 POCT glucose meter PROCEDURE ONCE Final result POCT, GENERIC PROVIDER Assessment: Clinical Impressions as of 12/24/24 0754 Altered mental status, unspecified altered mental status type Falls frequently Physical debility Social Determinates of Health Risks (including Economic Stability, Education and level of understanding, Healthcare access and quality and concerning social factors): Poor health literacy, Inability to see a healthcare specialist in timely manner., Chronic tobacco use, and Lives far away Ultimately, this patient was Was admitted (Admission) The primary encounter diagnosis was Altered mental status, unspecified altered mental status type. Diagnoses of Falls frequently and Physical debility were also pertinent to this visit.. Patient believed to require admission for the listed diagnoses. The Internal Medicine service was consulted for admission and was agreeable to admit to Acute Floor (Med/Surg). ED Prescriptions None Disposition Admit Admitting/Attending Physician: VERONIKA MENDEZ [[id number]] Provider Care Team: GARIMA JURADO 13 [[id number]] Are they the primary team?: Yes [1] - [1] Past Medical History: Diagnosis Date Depression [...] urinary calculi History of kidney stones [2] Past Surgical History: Procedure Laterality Date COLOSTOMY LITHOTRIPSY N/A lithotripsy from [facility] OTHER SURGICAL HISTORY N/A Liver Biopsy from [facility] OTHER SURGICAL HISTORY N/A ostomy from [facility] [3] Family History Problem Relation Name Age of Onset Heart attack Mother Heart disease Sister Hypertension Other [4] Tobacco Use Smoking status: Every Day Current packs/day: 1.00 Average packs/day: 1 pack/day for 42.5 years (42.5 ttl pk-yrs) Types: Cigarettes Start date: 1982 Passive exposure: Current Smokeless tobacco: Never Vaping Use Vaping status: Never Used Substance Use Topics Alcohol use: No Drug use: No Comment: Drug use: No illicit drug use [5] Allergies Allergen Reactions Hydrocodone Anaphylaxis and [...] rxn details Tolerated oxycodone and morphine at [facility] in September 2020. Gets stiff and rigid per patient Other reaction(s): Other (See Comments) Gets stiff and rigid per patient Martha Chang APRN 12/24/24 0754 Cosigned by Howard Rodríguez MD at 12/24/2024 11:45 PM EDT Associated attestation - Howard Rodríguez MD - 12/24/2024 11:45 PM EDT I attest to being involved in providing substantive part of the medical decision making in patient care. * ED Triage Notes - Gina Vargas RN - 12/24/2024 2:54 AM EDT Patient arrived accompanied by daughter. Daughter states the patient awoke around 1800 this eveningand seemed more confused than normal. Daughter states she had issues with task segmentation - mentions she could not remember how to light a cigarette in the car on the way here. Daughter also mentions multiple falls - last fall earlier today. Injury to right elbow. Unknown if patient hit her head or had LOC. Patient takes aspirin - denies other blood thinners. FSBG 173 in lobby at time of triage. documented in this encounter Plan of Treatment Upcoming Encounters Date Type Department Care Team (Late st Contact Info) Description 04/09/2025 4:00 PM EDT Office Visit [facility] [address], [address] [place] [address] Jordan Hanson MD [address] [place] [address] 06/22/2025 4:00 PM EST Office Visit [facility] [address] [place] [id number] Elin Kelly MD [address] [place] [address] Scheduled Referrals Name Type Priority Associated Diagnoses Order Schedule Ambulatory referral to External PCP Outpatient Referral Routine Other cirrhosis of liver (CMS/HCC) Polypharmacy 1 Occurrences starting 12/25/2024 until 06/28/2026 documented as of this encounter Procedures Procedure Name Priority Date/Time Associated Diagnosis Comments POCT GLUCOSE METER UNSOLICITED RESULTS Routine 12/25/2024 5:24 PM EDT POCT GLUCOSE METER UNSOLICITED RESULTS Routine 12/25/2024 11:22 AM EDT POCT GLUCOSE METER UNSOLICITED RESULTS Routine 12/25/2024 8:01 AM EDT POCT GLUCOSE METER UNSOLICITED RESULTS Routine 12/25/2024 5:29 AM EDT PROTHROMBIN TIME(PT) / INR Timed 12/25/2024 3:42 AM EDT CBC WITH AUTO DIFFERENTIAL Routine 12/25/2024 3:42 AM EDT PHOSPHORUS, PLASMA Routine 12/25/2024 3: 42 AM EDT MAGNESIUM, PLASMA Routine 12/25/2024 3:4 2 AM EDT HEPATIC FUNCTION PANEL Routine 3:42 AM EDT BASIC METABOLIC PANEL, PLASMA Routine 12/25/2024 3:42 AM EDT POCT GLUCOSE METER UNSOLICITED RESULTS Routine 12/25/2024 12:12 AM EDT POCT GLUCOSE METER UNSOLICITED RESULTS Routine 12/24/2024 9:55 PM EDT POCT GLUCOSE METER UNSOLICITED RESULTS Routine 12/24/2024 8:22 PM EDT US ABDOMEN FOCUSED REGION Routine 12/24/2024 7:16 PM EDT US ABDOMEN DOPPLER LIMITED Routine 12/24/2024 7:16 PM EDT POCT GLUCOSE METER UNSOLICITED RESULTS Routine 12/24/2024 5:55 PM EDT POCT GLUCOSE METER UNSOLICITED RESULTS Routine 12/24/2024 4:46 PM EDT VITAMIN D 25 HYDROXY Routine 12/24/2024 2:33 PM EDT TSH Add-On 12/24/2024 2:33 PM EDT FREE T4, PLASMA Add-On 12/24/2024 2:33 PM EDT FOLATE, SERUM Routine 12/24/2024 2:33 PM EDT VITAMIN B12, SERUM Routine 12/24/2024 2: 33 PM EDT RENAL FUNCTION PANEL, PLASMA Routine 12/24/2024 2:33 PM EDT POCT GLUCOSE METER UNSOLICITED RESULTS Routine 12/24/2024 11:43 AM EDT SEND BARBARA MESSAGE STAT 12/24/2024 8: 34 AM EDT URINALYSIS WITH REFLEX MICROSCOPIC AND CULTURE STAT 12/24/2024 8:34 AM EDT URINE BISHOP PANEL STAT 12/24/2024 8:34 AM EDT URINALYSIS MICROSCOPIC FOR UA REFLEX STAT 12/24/2024 8:34 AM EDT URINALYSIS WITH REFLEX MICROSCOPIC STAT 12/24/2024 8:34 AM EDT URINE CULTURE STAT 12/24/2024 8:34 AM EDT US RENAL COMPLETE Routine 12/24/2024 8:2 0 AM EDT TROPONIN T, HIGH SENSITIVITY, 2 HOUR, PLASMA Timed 12/24/2024 5:34 AM EDT XR PELVIS 1 OR 2 VIEWS STAT 4:47 AM EDT XR CHEST 1 VIEW STAT 12/24/2024 4:47 AM EDT XR ELBOW RIGHT 3+ VIEWS STAT 12/24/2024 4:[address] CERVICAL SPINE WO IV CONTRAST STAT 12/24/2024 4:[address] HEAD WO IV CONTRAST STAT 4:31 AM EDT TROPONIN T, HIGH SENSITIVITY, 0 HOUR, PLASMA, REFLEX TO 2 HOUR STAT 12/24/2024 3:31 AM EDT PROTHROMBIN TIME(PT) / INR STAT 12/24/2024 3:31 AM EDT CBC WITH AUTO DIFFERENTIAL STAT 12/24/2024 3:31 AM EDT HEMOGLOBIN A1C Add-On 12/24/2024 3:31 AM EDT BLOOD GAS PANEL, VENOUS STAT 12/24/2024 3:31 AM EDT AMMONIA, PLASMA STAT 12/24/2024 3:31 AM EDT COMPREHENSIVE METABOLIC PANEL, PLASMA STAT 12/24/2024 3:31 AM EDT ECG ADULT STAT 12/24/2024 3:16 AM EDT POCT GLUCOSE METER UNSOLICITED RESULTS Routine 12/24/2024 2:58 AM EDT documented in this encounter Results * (ABNORMAL) POCT glucose meter (12/25/2024 5:24 PM EDT) [facility] POCT Glucose 224(H) 74 - 99 mg/dL 12/25/2024 5:26 PM EDT [facility] Comment:Accuracy of a glucos e result obtained from a capillary whole blood specimen relies upon adequate, non-compromised capillary blood flow. If the capillary glucose result is not consistent with the patient's clinical signs and symptoms, glucose testing should be repeated with either an arterial or venous sample on the glucometer or sent to the main labortory for testing. Comment 12/25/2024 5:26 PM EDT [facility] Wheel Blocker ID Elvira Streeter 12/25/2024 5:26 PM EDT [facility]ARE LAB Device ID [id number] 12/25/2024 5:26 PM EDT [facility] Specimen Type POC Capillary 12/25/2024 5:26 PM EDT [facility] Blood Capillary blood specimen / Unknown 12/25/2024 5:24 PM EDT 12/25/2024 5:26 PM EDT us Prabhjot Mehta MD LAB POINT OF CARE TE ST DOCKED DEVICE UNSOLICITED RESULTS Final Result Performing Organization Address City/State/[facility] Co de Phone Number [facility]CARE LAB [address] [place] [address] * (ABNORMAL) POCT glucose meter (12/25/2024 11:22 AM EDT) [facility] POCT Glucose 288(H) 74 - 99 mg/dL 12/25/2024 11:23 AM EDT [facility] Comment:Accuracy of a glucos e result obtained from a capillary whole blood specimen relies upon adequate, non-compromised capillary blood flow. If the capillary glucose result is not consistent with the patient's clinical signs and symptoms, glucose testing should be repeated with either an arterial or venous sample on the glucometer or sent to the main labortory for testing. Comment 12/25/2024 11:23 AM EDT [facility] Wheel Blocker ID Elvira Streeter 12/25/2024 11:23 AM EDT [facility] LAB Device ID [id number] 12/25/2024 11:23 AM EDT [facility] Specimen Type POC Capillary 12/25/2024 11:23 AM EDT [facility] Blood Capillary blood specimen / Unknown 12/25/2024 11:22 AM EDT 12/25/2024 11:23 AM EDT us Prabhjot Mehta MD LAB POINT OF CARE TE ST DOCKED DEVICE UNSOLICITED RESULTS Final Result Performing Organization Address City/[facility] Co de Phone Number [facility] [address] [place] [address] * (ABNORMAL) POCT glucose meter (12/25/2024 8:01 AM EDT) [facility] POCT Glucose 242(H) 74 - 99 mg/dL 12/25/2024 8:03 AM EDT [facility] Comment:Accuracy of a glucos e result obtained from a capillary whole blood specimen relies upon adequate, non-compromised capillary blood flow. If the capillary glucose result is not consistent with the patient's clinical signs and symptoms, glucose testing should be repeated with either an arterial or venous sample on the glucometer or sent to the main labortory for testing. Comment 12/25/2024 8:03 AM EDT [facility] Wheel Blocker ID Elvira Streeter 12/25/2024 8:03 AM EDT [facility] LAB Device ID [id number] 12/25/2024 8:03 AM EDT [facility] Specimen Type POC Capillary 12/25/2024 8:03 AM EDT [facility] Blood Capillary blood specimen / Unknown 12/25/2024 8:01 AM EDT 12/25/2024 8:03 AM EDT us Prabhjot Mehta MD LAB POINT OF CARE TE ST DOCKED DEVICE UNSOLICITED RESULTS Final Result Performing Organization Address City/[facility]/ZIP Co de Phone Number [facility] [address] [place] [address] * (ABNORMAL) POCT glucose meter (12/25/2024 5:29 AM EDT) [facility] POCT Glucose 215(H) 74 - 99 mg/dL 12/25/2024 5:31 AM EDT [facility] Comment:Accuracy of a glucos e result obtained from a capillary whole blood specimen relies upon adequate, non-compromised capillary blood flow. If the capillary glucose result is not consistent with the patient's clinical signs and symptoms, glucose testing should be repeated with either an arterial or venous sample on the glucometer or sent to the main labortory for testing. Comment 12/25/2024 5:31 AM EDT [facility] Wheel Blocker ID Nicole Saucedo 5:31 AM EDT [facility]ARE LAB Device ID [id number] 12/25/2024 5:31 AM EDT [facility] Specimen Type POC Capillary 12/25/2024 5:31 AM EDT [facility] Blood Capillary blood specimen / Unknown 12/25/2024 5:29 AM EDT 12/25/2024 5:31 AM EDT us Prabhjot Mehta MD LAB POINT OF CARE TE ST DOCKED DEVICE UNSOLICITED RESULTS Final Result [facility] [address] [place] [address] * (ABNORMAL) Basic Metabolic Panel, Plasma (12/25/2024 3:42 AM EDT) [facility] Glucose, Plasma 193(H) 74 - 99 mg/dL 12/25/2024 4:47 AM EDT [facility] BUN, Plasma 53(H) 8 - 23 mg/dL 12/25/2024 4:47 AM EDT [facility] Creatinine, Plasma 1.37(H) 0.60 - 1.10 mg/dL 12/25/2024 4:47 AM EDT [facility] BUN/Creatinine Ratio 39 12/25/2024 4:47 AM EDT [facility] Sodium, Plasma 136 136 - 145 mmol/L 12/25/2024 4:47 AM EDT [facility] Potassium, Plasma 3.6 3.6 - 4.9 mmol/L 12/25/2024 4:47 AM EDT [facility] Chloride, Plasma 105 97 - 107 mmol/L 12/25/2024 4:47 AM EDT [facility] CO2, Plasma 17(L) 22 - 29 mmol/L 12/25/2024 4:47 AM EDT [facility] Anion Gap 14 6 - 16 mmol/L 12/25/2024 4:47 AM EDT [facility] Total Calcium, Plasma 9.4 8.9 - 10.2 mg/dL 12/25/2024 4:47 AM EDT [facility] eGFRcr 44.3 mL/min/1.7 3m*2 12/25/2024 4:47 AM EDT [facility] Comment:Reported eGFRcr in m L/min/1.73m2 is based the CKD-EPI 2020 equation that does not use a race coefficient. Blood Venous blood specimen / Unknown Venipuncture / Unknown 12/25/2024 3:42 AM EDT 12/25/2024 3:58 AM EDT us Prabhjot Mehta MD LAB BLOOD ORDERABLES Final Resul t Performing Organization Address City/[facility]/ZIP Co de Phone Number [facility] [address] [place] [address] * Phosphorus, Plasma (12/25/2024 3:42 AM EDT) Phosphorus, Plasma 3.5 2.5 - 4.5 mg/dL 12/25/2024 4:47 AM EDT [facility] Blood Venous blood specimen / Unknown Venipuncture / Unknown 12/25/2024 3:42 AM EDT 12/25/2024 3:58 AM EDT us Prabhjot Mehta MD LAB BLOOD ORDERABLES Final Resul t [facility] [address] [place] [address] * (ABNORMAL) Protime-INR (12/25/2024 3:42 AM EDT) Prothrombin Time 15.2(H) 12.0 - 14.3 sec LAB COAGULATION METHOD 12/25/2024 4:12 AM EDT [facility] INR 1.2(H) 0.9 - 1.1 LAB COAGULATION METHOD 12/25/2024 4:12 AM EDT [facility] Blood Venous blood specimen / Unknown Venipuncture / Unknown 12/25/2024 3:42 AM EDT 12/25/2024 3:52 AM EDT Narrative [facility] - 12/25/2024 4:12 AM EDT OPTIMAL INR RANGES FOR PATIENT ON ORAL ANTICOAGULANT THERAPY Prevention of venous thromboembolism INR 2.0 to 3.0 In patients with heart disease: Atrial fibrillation INR 2.0 to 3.0 Valvular heart disease INR 2.0 to 3.0 Tissue heart valves INR 2.0 to 3.0 Mechanical prosthetic valves INR 2.5 to 3.5 Prevention of recurrent MT INR 2.5 to 3.5 us Prabhjot Mehta MD LAB BLOOD ORDERABLES Final Resul t [facility] [address] [place] [address] * (ABNORMAL) Hepatic Function Panel (12/25/2024 3:42 AM EDT) Conjugated Bilirubin, Plasma <0.2 <=0.3 mg/dL 12/25/2024 4:47 AM EDT [facility] Alkaline Phosphatase, Plasma 203(H) 46 - 142 U/L 12/25/2024 4:47 AM EDT [facility] Total Bilirubin, Plasma 0.3 0.2 - 1.1 mg/dL 12/25/2024 4:47 AM EDT [facility] Albumin, Plasma 4.1 3.5 - 5.2 g/dL 12/25/2024 4:47 AM EDT [facility] Total Protein 7.8 6.3 - 7.9 g/dL 12/25/2024 4:47 AM EDT [facility] ALT, Plasma 33 10 - 35 U/L 12/25/2024 4:47 AM EDT [facility] AST, Plasma 48(H) 10 - 35 U/L 12/25/2024 4:47 AM EDT [facility] Comment:Hemolyzed, result ma y be falsely increased. Blood Venous blood specimen / Unknown Venipuncture / Unknown 12/25/2024 3:42 AM EDT 12/25/2024 3:58 AM EDT us Prabhjot Mehta MD LAB BLOOD ORDERABLES Final Resul t [facility] [address] [place] [address] * (ABNORMAL) CBC and Differential (12/25/2024 3:42 AM EDT) WBC Count 7.49 3.70 - 10.30 10*3/uL LAB HEMATOLOGY METHOD 12/25/2024 3:56 AM EDT [facility] RBC Count 5.25(H) 3.90 - 5.20 10*6/uL LAB HEMATOLOGY METHOD 12/25/2024 3:56 AM EDT [facility] HGB 14.8 11.2 - 15.7 g/dL LAB HEMATOLOGY METHOD 12/25/2024 3:56 AM EDT [facility] HCT 42.1 34.0 - 45.0 % LAB HEMATOLOGY METHOD 12/25/2024 3:56 AM EDT [facility] Platelet Count 94(L) 155 - 369 10*3/uL LAB HEMATOLOGY METHOD 12/25/2024 3:56 AM EDT [facility] MCV 80 79 - 98 fL LAB HEMATOLOGY METHOD 12/25/2024 3:56 AM EDT [facility] MCH 28.2 26.0 - 32.0 pg LAB HEMATOLOGY METHOD 12/25/2024 3:56 AM EDT [facility] MCHC 35.2 30.7 - 35.5 g/dL LAB HEMATOLOGY METHOD 12/25/2024 3:56 AM EDT [facility] RDW 16.9(H) 11.5 - 14.5 % LAB HEMATOLOGY METHOD 12/25/2024 3:56 AM EDT [facility] MPV 9.5 8.8 - 12.5 fL LAB HEMATOLOGY METHOD 12/25/2024 3:56 AM EDT [facility] nRBC 0.0 <=0.0 per 100 WBCs LAB HEMATOLOGY METHOD 12/25/2024 3:56 AM EDT [facility] Differential Type Automated LAB HEMATOLOGY METHOD 12/25/2024 3:56 AM EDT [facility] Neutrophils % 44 % LAB HEMATOLOGY METHOD 12/25/2024 3:56 AM EDT [facility] Lymphocytes % 44 % LAB HEMATOLOGY METHOD 12/25/2024 3:56 AM EDT [facility] Monocytes % 8 % LAB HEMATOLOGY METHOD 12/25/2024 3:56 AM EDT [facility] Eosinophils % 3 % LAB HEMATOLOGY METHOD 12/25/2024 3:56 AM EDT [facility] Basophils % 1 % LAB HEMATOLOGY METHOD 12/25/2024 3:56 AM EDT [facility] Immature Granulocytes % 0 % LAB HEMATOLOGY METHOD 12/25/2024 3:56 AM EDT [facility] Neutrophils Absolute 3.28 1.60 - 6.10 10*3/uL LAB HEMATOLOGY METHOD 12/25/2024 3:56 AM EDT [facility] Lymphocytes Absolute 3.26 1.20 - 3.90 10*3/uL LAB HEMATOLOGY METHOD 12/25/2024 3:56 AM EDT [facility] Monocytes Absolute 0.59 0.30 - 0.90 10*3/uL LAB HEMATOLOGY METHOD 12/25/2024 3:56 AM EDT [facility] Eosinophils Absolute 0.24 0.00 - 0.50 10*3/uL LAB HEMATOLOGY METHOD 12/25/2024 3:56 AM EDT [facility] Basophils Absolute 0.10 0.00 - 0.10 10*3/uL LAB HEMATOLOGY METHOD 12/25/2024 3:56 AM EDT [facility] Immature Granulocytes Absolute 0.02 0.00 - 0.06 10*3/uL LAB HEMATOLOGY METHOD 12/25/2024 3:56 AM EDT [facility] Blood Venous blood specimen / Unknown Venipuncture / Unknown 12/25/2024 3:42 AM EDT 12/25/2024 3:52 AM EDT [facility] - 12/25/2024 3:56 AM EDT Therapeutic decision making should be based on absolute values, rather than percentages. us Prabhjot Mehta MD LAB BLOOD ORDERABLES Final Resul t [facility] [address] [place] [address] * Magnesium, Plasma (12/25/2024 3:42 AM EDT) [facility] Magnesium, Plasma 2.3 1.9 - 2.4 mg/dL 12/25/2024 4:47 AM EDT [facility] Blood Venous blood specimen / Unknown Venipuncture / Unknown 12/25/2024 3:42 AM EDT 12/25/2024 3:58 AM EDT us Prabhjot Mehta MD LAB BLOOD ORDERABLES Final Resul t Performing Organization Address [facility] de Phone Number [facility] [address] [place] [address] * (ABNORMAL) POCT glucose meter (12/25/2024 12:12 AM EDT) [facility] POCT Glucose 208(H) 74 - 99 mg/dL 12/25/2024 12:13 AM EDT [facility] Comment:Accuracy of a glucos e result obtained from a capillary whole blood specimen relies upon adequate, non-compromised capillary blood flow. If the capillary glucose result is not consistent with the patient's clinical signs and symptoms, glucose testing should be repeated with either an arterial or venous sample on the glucometer or sent to the main labortory for testing. Comment 12/25/2024 12:13 AM EDT [facility] Wheel Blocker ID Crystal Merchant 12/26/19 25 12:13 AM EDT HEALTHCARE LAB Device ID [id number] 12/25/2024 12:13 AM EDT [facility] Specimen Type POC Capillary 12/25/2024 12:13 AM EDT [facility] Blood Capillary blood specimen / Unknown 12/25/2024 12:12 AM EDT 12/25/2024 12:13 AM EDT us Prabhjot Mehta MD LAB POINT OF CARE TE ST DOCKED DEVICE UNSOLICITED RESULTS Final Result Performing Organization Address [facility] Co de Phone Number [facility] [address] [place] [address] * (ABNORMAL) POCT glucose meter (12/24/2024 9:55 PM EDT) [facility] POCT Glucose 317(H) 74 - 99 mg/dL 12/24/2024 9:57 PM EDT [facility] Comment:Accuracy of a glucos e result obtained from a capillary whole blood specimen relies upon adequate, non-compromised capillary blood flow. If the capillary glucose result is not consistent with the patient's clinical signs and symptoms, glucose testing should be repeated with either an arterial or venous sample on the glucometer or sent to the main labortory for testing. Comment 12/24/2024 9:57 PM EDT [facility] Wheel Blocker ID Nicole Saucedo 9:57 PM EDT HEALTHCARE LAB Device ID [id number] 12/24/2024 9:57 PM EDT [facility] Specimen Type POC Capillary 12/24/2024 9:57 PM EDT [facility] Blood Capillary blood specimen / Unknown 12/24/2024 9:55 PM EDT 12/24/2024 9:57 PM EDT us Prabhjot Mehta MD LAB POINT OF CARE TE ST DOCKED DEVICE UNSOLICITED RESULTS Final Result Performing Organization Address City/State/[facility] Co de Phone Number [facility] [address] [place] [address] * (ABNORMAL) POCT glucose meter (12/24/2024 8:22 PM EDT) [facility] POCT Glucose 336(H) 74 - 99 mg/dL 12/24/2024 8:23 PM EDT [facility] Comment:Accuracy of a glucos e result obtained from a capillary whole blood specimen relies upon adequate, non-compromised capillary blood flow. If the capillary glucose result is not consistent with the patient's clinical signs and symptoms, glucose testing should be repeated with either an arterial or venous sample on the glucometer or sent to the main labortory for testing. Comment 12/24/2024 8:23 PM EDT [facility] Wheel Blocker ID Crystal Merchant 12/25/19 8:23 PM EDT [facility] Device ID [id number] 12/24/2024 8:23 PM EDT [facility] Specimen Type POC Capillary 12/24/2024 8:23 PM EDT [facility] Blood Capillary blood specimen / Unknown 12/24/2024 8:22 PM EDT 12/24/2024 8:23 PM EDT us Prabhjot Mehta MD LAB POINT OF CARE TE ST DOCKED DEVICE UNSOLICITED RESULTS Final Result [facility] [address] [place] [address] * US Abdomen Doppler Limited (12/24/2024 7:16 PM EDT) Anatomical Region Laterality Modality Abdomen Ultrasound Impressions 12/24/2024 7:50 PM EDT Patent hepatic vasculature with appropriate flow directionality. No ascites. CRITICAL RESULT: No. COMMUNICATION: Per this written report. Drafted by Carolina Hutton MD on 12/24/2024 7:48 PM Final report signed by Carolina Hutton MD on 12/24/2024 7:50 PM Narrative 12/24/2024 7:50 PM EDT CLINICAL INDICATION: Cirrhosis - Assess for ascites & portal vasculature TECHNIQUE: Multiplanar evaluation of the hepatic vasculature was undertaken, including the acquisition of Color and Spectral Doppler images. Limited grayscale images were also obtained. COMPARISON: None. FINDINGS: Grayscale: Limited grayscale images are unremarkable. No ascites in the four abdominal quadrants. Duplex: Portal Vein: There is antegrade flow within the main portal vein with a velocity of 19.9 cm/sec. Hepatic Artery: The main hepatic artery is patent with normal direction of flow. The resistive index is 0.84. Peak systolic velocity is 59.6 cm/sec. Hepatic Veins: The hepatic veins are patent at the IVC confluence with normal direction of flow. Other: N/A Procedure Note Carolina Hutton MD - 12/24/2024 CLINICAL INDICATION: Cirrhosis - Assess for ascites & portal vasculature TECHNIQUE: Multiplanar evaluation of the hepatic vasculature was undertaken,including the acquisition of Color and Spectral Doppler images. Limitedgrayscale images were also obtained. COMPARISON: None. FINDINGS: Grayscale: Limited grayscale images are unremarkable. No ascites in the fourabdominal quadrants. Duplex: Portal Vein: There is antegrade flow within the main portal vein with avelocity of 19.9 cm/sec. Hepatic Artery: The main hepatic artery is patent with normal direction offlow. The resistive index is 0.84. Peak systolic velocity is 59.6 cm/sec. Hepatic Veins: The hepatic veins are patent at the IVC confluence withnormal direction of flow. Other: N/A IMPRESSION: Patent hepatic vasculature with appropriate flow directionality. No ascites. CRITICAL RESULT: No. COMMUNICATION: Per this written report. Drafted by Carolina Hutton MD on 12/24/2024 7:48 PM Final report signed by Carolina Hutton MD on 12/24/2024 7:50 PM us Prabhjot Mehta MD IMG US PROCEDURES Final Result * US Abdomen Focused Region Other (12/24/2024 7:16 PM EDT) Anatomical Region Laterality Modality Abdomen Ultrasound Impressions 12/24/2024 7:50 PM EDT Patent hepatic vasculature with appropriate flow directionality. No ascites. CRITICAL RESULT: No. COMMUNICATION: Per this written report. Drafted by Carolina Hutton MD on 12/24/2024 7:48 PM Final report signed by Carolina Hutton MD on 12/24/2024 7:50 PM Narrative 12/24/2024 7:50 PM EDT CLINICAL INDICATION: Cirrhosis - Assess for ascites & portal vasculature TECHNIQUE: Multiplanar evaluation of the hepatic vasculature was undertaken, including the acquisition of Color and Spectral Doppler images. Limited grayscale images were also obtained. COMPARISON: None. FINDINGS: Grayscale: Limited grayscale images are unremarkable. No ascites in the four abdominal quadrants. Duplex: Portal Vein: There is antegrade flow within the main portal vein with a velocity of 19.9 cm/sec. Hepatic Artery: The main hepatic artery is patent with normal direction of flow. The resistive index is 0.84. Peak systolic velocity is 59.6 cm/sec. Hepatic Veins: The hepatic veins are patent at the IVC confluence with normal direction of flow. Other: N/A Procedure Note Carolina Hutton MD - 12/24/2024 CLINICAL INDICATION: Cirrhosis - Assess for ascites & portal vasculature TECHNIQUE: Multiplanar evaluation of the hepatic vasculature was undertaken,including the acquisition of Color and Spectral Doppler images. Limitedgrayscale images were also obtained. COMPARISON: None. FINDINGS: Grayscale: Limited grayscale images are unremarkable. No ascites in the fourabdominal quadrants. Duplex: Portal Vein: There is antegrade flow within the main portal vein with avelocity of 19.9 cm/sec. Hepatic Artery: The main hepatic artery is patent with normal direction offlow. The resistive index is 0.84. Peak systolic velocity is 59.6 cm/sec. Hepatic Veins: The hepatic veins are patent at the IVC confluence withnormal direction of flow. Other: N/A IMPRESSION: Patent hepatic vasculature with appropriate flow directionality. No ascites. CRITICAL RESULT: No. COMMUNICATION: Per this written report. Drafted by Carolina Hutton MD on 12/24/2024 7:48 PM Final report signed by Carolina Hutton MD on 12/24/2024 7:50 PM us Prabhjot Mehta MD IMG US PROCEDURES Final Result * (ABNORMAL) POCT glucose meter (12/24/2024 5:55 PM EDT) POCT Glucose 236(H) 74 - 99 mg/dL 12/24/2024 5:57 PM EDT [facility] Comment:Accuracy of a glucos e result obtained from a capillary whole blood specimen relies upon adequate, non-compromised capillary blood flow. If the capillary glucose result is not consistent with the patient's clinical signs and symptoms, glucose testing should be repeated with either an arterial or venous sample on the glucometer or sent to the main labortory for testing. Comment 12/24/2024 5:57 PM EDT [facility] Wheel Blocker ID Alexys Rangel 025 5:57 PM EDT [facility]ALTH[facility]ARE LAB Device ID [id number] 12/24/2024 5:57 PM EDT [facility] Specimen Type POC Capillary 12/24/2024 5:57 PM EDT [facility] Blood Capillary blood specimen / Unknown 12/24/2024 5:55 PM EDT 12/24/2024 5:57 PM EDT us Prabhjot Mehta MD LAB POINT OF CARE TE ST DOCKED DEVICE UNSOLICITED RESULTS Final Result [facility] [address] [place] [address] * (ABNORMAL) POCT glucose meter (12/24/2024 4:46 PM EDT) [facility] POCT Glucose 273(H) 74 - 99 mg/dL 12/24/2024 4:48 PM EDT [facility] Comment:Accuracy of a glucos e result obtained from a capillary whole blood specimen relies upon adequate, non-compromised capillary blood flow. If the capillary glucose result is not consistent with the patient's clinical signs and symptoms, glucose testing should be repeated with either an arterial or venous sample on the glucometer or sent to the main labortory for testing. Comment 12/24/2024 4:48 PM EDT [facility] Wheel Blocker ID Seb Gore 12/24/2024 4:48 PM EDT HEALTH[facility]ARE LAB Device ID [id number] 12/24/2024 4:48 PM EDT [facility] Specimen Type POC Capillary 12/24/2024 4:48 PM EDT [facility] Blood Capillary blood specimen / Unknown 12/24/2024 4:46 PM EDT 12/24/2024 4:48 PM EDT us Prabhjot Mehta MD LAB POINT OF CARE TE ST DOCKED DEVICE UNSOLICITED RESULTS Final Result Performing Organization Address [facility] de Phone Number [facility] [address] [place] [address] * T4, free (12/24/2024 2:33 PM EDT) [facility] Free T4, Plasma 1.5 0.8 - 1.7 ng/dL 12/24/2024 6:24 PM EDT [facility] Blood Venous blood specimen / Unknown Venipuncture / Unknown 12/24/2024 2:33 PM EDT 12/24/2024 2:37 PM EDT us Prabhjot Mehta MD LAB BLOOD ORDERABLES Final Resul t Performing Organization Address City/[facility] Co de Phone Number [facility] [address] [place] [address] * (ABNORMAL) TSH (12/24/2024 2:33 PM EDT) Thyroid Stimulating Hormone, Plasma 0.31(L) 0.40 - 4.20 uIU/mL 12/24/2024 6:24 PM EDT [facility] Blood Venous blood specimen / Unknown Venipuncture / Unknown 12/24/2024 2:33 PM EDT 12/24/2024 2:37 PM EDT us Prabhjot Mehta MD LAB BLOOD ORDERABLES Final Resul t Performing Organization Address City/[facility]/ZIP Co de Phone Number [facility] [address] [place] [address] * Folate, Serum (12/24/2024 2:33 PM EDT) Pathologist [facility] Folate, Serum 7.4 >4.6 ng/mL 12/24/2024 4:02 PM EDT [facility] Blood Venous blood specimen / Unknown Venipuncture / Unknown 12/24/2024 2:33 PM EDT 12/24/2024 2:37 PM EDT us Prabhjot Mehta MD LAB BLOOD ORDERABLES Final Resul t Performing Organization Address [facility] [place] [address] * Vitamin B12, Serum (12/24/2024 2:33 PM EDT) Pathologist [facility] Vitamin B12, Serum 599 210 - 1,033 pg/mL 12/24/2024 4:02 PM EDT [facility] Blood Venous blood specimen / Unknown Venipuncture / Unknown 12/24/2024 2:33 PM EDT 12/24/2024 2:37 PM EDT us Prabhjot Mehta MD LAB BLOOD ORDERABLES Final Resul t Performing Organization Address City/[facility] [place] [address] * Vitamin D 25 Hydroxy (12/24/2024 2:33 PM EDT) Pathologist [facility] Vitamin D 25 Hydroxy 34.6 20.0 - 80.0 ng/mL 12/24/2024 4:05 PM EDT [facility] Blood Venous blood specimen / Unknown Venipuncture / Unknown 12/24/2024 2:33 PM EDT 12/24/2024 2:37 PM EDT Narrative [facility] - 12/24/2024 4:05 PM EDT Testing performed on [employer], standardized against NIST SRM 2972. When testing samples from patients whose predominant form of vitamin D is vitamin D2, such as patients receiving vitamin D2 supplementation, results that are subtherapeutic should be confirmed with another method, such as LC-MS/MS, before being used for patient management. Vitamin D, 25-Hydroxy reference range, age 18 years and up: Deficiency: <12 ng/mL Insufficiency: 12 to 19 ng/mL Sufficiency: 20 to 80 ng/mL Possible toxicity: >100 ng/mL Prabhjot Mehta MD LAB BLOOD ORDERABLES Final Resul t [facility] [address] [place] [address] * (ABNORMAL) Renal function panel (12/24/2024 2:33 PM EDT) [facility] Glucose, Plasma 296(H) 74 - 99 mg/dL 12/24/2024 2:56 PM EDT [facility] BUN, Plasma 64(H) 8 - 23 mg/dL 12/24/2024 2:56 PM EDT [facility] Creatinine, Plasma 1.60(H) 0.60 - 1.10 mg/dL 12/24/2024 2:56 PM EDT [facility] BUN/Creatinine Ratio 40 12/24/2024 2:56 PM EDT [facility] Sodium, Plasma 131(L) 136 - 145 mmol/L 12/24/2024 2:56 PM EDT [facility] Potassium, Plasma 3.6 3.6 - 4.9 mmol/L 12/24/2024 2:56 PM EDT [facility] Chloride, Plasma 104 97 - 107 mmol/L 12/24/2024 2:56 PM EDT [facility] CO2, Plasma 16(L) 22 - 29 mmol/L 12/24/2024 2:56 PM EDT [facility] Anion Gap 11 6 - 16 mmol/L 12/24/2024 2:56 PM EDT [facility] Total Calcium, Plasma 9.1 8.9 - 10.2 mg/dL 12/24/2024 2:56 PM EDT [facility] Phosphorus, Plasma 4.6(H) 2.5 - 4.5 mg/dL 12/24/2024 2:56 PM EDT [facility] Albumin, Plasma 4.4 3.5 - 5.2 g/dL 12/24/2024 2:56 PM EDT [facility] eGFRcr 36.8 mL/min/1.7 3m*2 12/24/2024 2:56 PM EDT [facility] Comment:Reported eGFRcr in m L/min/1.73m2 is based the CKD-EPI 2020 equation that does not use a race coefficient. Blood Venous blood specimen / Unknown Venipuncture / Unknown 12/24/2024 2:33 PM EDT 12/24/2024 2:37 PM EDT us Prabhjot Mehta MD LAB BLOOD ORDERABLES Final Resul t [facility] [address] [place] [address] * (ABNORMAL) POCT glucose meter (12/24/2024 11:43 AM EDT) POCT Glucose 182(H) 74 - 99 mg/dL 12/24/2024 11:45 AM EDT [facility] Comment:Accuracy of a glucos e result obtained from a capillary whole blood specimen relies upon adequate, non-compromised capillary blood flow. If the capillary glucose result is not consistent with the patient's clinical signs and symptoms, glucose testing should be repeated with either an arterial or venous sample on the glucometer or sent to the main labortory for testing. Comment 12/24/2024 11:45 AM EDT [facility] Wheel Blocker ID Dagoberto Lam 11:45 AM EDT [facility] Device ID [id number] 12/24/2024 11:45 AM EDT [facility] Specimen Type POC Capillary 12/24/2024 11:45 AM EDT [facility] Blood Capillary blood specimen / Unknown 12/24/2024 11:43 AM EDT 12/24/2024 11:45 AM EDT Prabhjot Mehta MD LAB POINT OF CARE TE ST DOCKED DEVICE UNSOLICITED RESULTS Final Result Performing Organization Address City/[facility] Co de Phone Number [facility] [address] [place] [address] * SEND BARBARA MESSAGE (12/24/2024 8:34 AM EDT) Urine Urine specimen obtained by clean catch procedure / Unknown Non-blood Collection / Unknown 12/24/2024 8:34 AM EDT 12/24/2024 8:57 AM EDT Martha Chang APRN LAB URINE ORDERABLES Fin al Result Performing Organization Address City/[facility] [place] [address] * Urine Culture (12/24/2024 8:34 AM EDT) Culture <10,000 CFU/mL Mixed urogenital, fecal, or skin robbie present. 12/25/2024 9:24 AM EDT [facility] Urine Urine specimen obtained by clean catch procedure / Unknown Non-blood Collection / Unknown 12/24/2024 8:34 AM EDT 12/24/2024 8:57 AM EDT Martha Chang APRN LAB MICROBIOLOGY - GENER AL ORDERABLES Final Result Performing Organization Address [facility] [place] [address] * Urinalysis Microscopic Examination (12/24/2024 8:34 AM EDT) Urine Urine specimen obtained by clean catch procedure / Unknown Non-blood Collection / Unknown 12/24/2024 8:34 AM EDT 12/24/2024 8:36 AM EDT [facility] Brayen SUEDING MACHINE TENDER LAB URINE ORDERABLES Fin al Result Performing Organization Address City/[facility]/ZIP Co de Phone Number [facility] [address] [place] [address] * Urine Bishop Panel (12/24/2024 8:34 AM EDT) Extra Sent for Culture 12/24/2024 10:01 AM EDT [facility] Urine Urine specimen obtained by clean catch procedure / Unknown Non-blood Collection / Unknown 12/24/2024 8:34 AM EDT 12/24/2024 8:57 AM [facility]T [facility] Fin al Result Performing Organization Address [facility] de Phone Number [facility] [address] [place] [address] * (ABNORMAL) Urinalysis with reflex microscopic (Culture NOT Included) (12/24/2024 8:34 AM EDT) Color, Urine Yellow LAB URINALYSIS - AUTOMATED METHOD 12/24/2024 9:25 AM EDT [facility] Clarity, Urine Clear LAB URINALYSIS - AUTOMATED METHOD 12/24/2024 9:25 AM EDT [facility] Spec [place], Urine 1.024 1.005 - 1.030 LAB URINALYSIS - AUTOMATED METHOD 12/24/2024 9:25 AM EDT [facility] pH, Urine 6.0 5.0 - 8.0 LAB URINALYSIS - AUTOMATED METHOD 12/24/2024 9:25 AM EDT [facility] Protein, Urine 30(A) Negative mg/dL LAB URINALYSIS - AUTOMATED METHOD 12/24/2024 9:25 AM EDT [facility] Glucose, Urine 500(A) Negative mg/dL LAB URINALYSIS - AUTOMATED METHOD 12/24/2024 9:25 AM EDT [facility] Ketones, Urine Negative Negative mg/dL LAB URINALYSIS - AUTOMATED METHOD 12/24/2024 9:25 AM EDT [facility] Blood, Urine Negative Negative LAB URINALYSIS - AUTOMATED METHOD 12/24/2024 9:25 AM EDT [facility] Bilirubin, Urine Negative Negative LAB URINALYSIS - AUTOMATED METHOD 12/24/2024 9:25 AM EDT [facility] Urobilinogen, Urine 0.2 0.2 to 1.0 mg/dL LAB URINALYSIS - AUTOMATED METHOD 12/24/2024 9:25 AM EDT [facility] Leukocytes, Urine Trace(A) Negative LAB URINALYSIS - AUTOMATED METHOD 12/24/2024 9:25 AM EDT [facility] Nitrite, Urine Negative Negative LAB URINALYSIS - AUTOMATED METHOD 12/24/2024 9:25 AM EDT [facility] RBC, Urine 1 0 to 3 /HPF LAB URINALYSIS - AUTOMATED METHOD 12/24/2024 9:25 AM EDT [facility] Comment:This result was prev iously suppressed from the chart. WBC, Urine 11 - 20(A) 0 to 5 /HPF LAB URINALYSIS - AUTOMATED METHOD 12/24/2024 9:25 AM EDT [facility] Comment:This result was prev iously suppressed from the chart. Squamous Epithelial Cells 0 - 2 0 to 5 /HPF LAB URINALYSIS - AUTOMATED METHOD 12/24/2024 9:25 AM EDT [facility] Comment:This result was prev iously suppressed from the chart. Hyaline Casts 3 - 5 0 to 5 /LPF LAB URINALYSIS - AUTOMATED METHOD 12/24/2024 9:25 AM EDT [facility] Comment:This result was prev iously suppressed from the chart. Bacteria, Urine Negative Negative LAB URINALYSIS - AUTOMATED METHOD 12/24/2024 9:25 AM EDT [facility] Comment:This result was prev iously suppressed from the chart. Urine Urine specimen obtained by clean catch procedure / Unknown Non-blood Collection / Unknown 12/24/2024 8:34 AM EDT 12/24/2024 8:36 AM EDT Martha Chang APRN LAB URINE ORDERABLES Fin al Result [facility] [address] [place] [id number] * US Renal Complete (12/24/2024 8:20 AM EDT) Anatomical Region Laterality Modality Kidney Ultrasound Impressions 12/24/2024 8:53 AM EDT Unremarkable renal ultrasound. No hydronephrosis. CRITICAL RESULT: No. COMMUNICATION: Per this written report. Drafted by Christin Hoyt DO on 12/24/2024 8:50 AM Final report signed by Christin Hoyt DO on 12/24/2024 8:53 AM Narrative 12/24/2024 8:53 AM EDT CLINICAL INDICATION: florentin TECHNIQUE: Multiplanar static and cine bishop scale ultrasound images of the kidneys and urinary bladder were obtained, accompanied by selective color Doppler ultrasound images. COMPARISON: None. FINDINGS: Right Kidney: Normal in size and echogenicity. Length 11.9 cm. No hydronephrosis, obvious calculi or discernible mass. Left Kidney: Normal in size and echogenicity. Length 12.1 cm. No hydronephrosis, obvious calculi or discernible mass. Urinary bladder: Somewhat decompressed but grossly unremarkable. Procedure Note Christin Hoyt DO - 12/24/2024 CLINICAL INDICATION: florentin TECHNIQUE: Multiplanar static and cine bishop scale ultrasound images of the kidneysand urinary bladder were obtained, accompanied by selective color Dopplerultrasound images. COMPARISON: None. FINDINGS: Right Kidney: Normal in size and echogenicity. Length 11.9 cm. Nohydronephrosis, obvious calculi or discernible mass. Left Kidney: Normal in size and echogenicity. Length 12.1 cm. Nohydronephrosis, obvious calculi or discernible mass. Urinary bladder: Somewhat decompressed but grossly unremarkable. IMPRESSION: Unremarkable renal ultrasound. No hydronephrosis. CRITICAL RESULT: No. COMMUNICATION: Per this written report. Drafted by Christin Hoyt DO on 12/24/2024 8:50 AM Final report signed by Christin Hoyt DO on 12/24/2024 8:53 AM us Lokesh Arredondo APRN, DNP IMG US PROCEDURES Final Result * (ABNORMAL) Troponin T, High Sensitivity, 2 Hour, Plasma (12/24/2024 5:34 AM EDT) Troponin T, High Sensitivity, 2 Hour 26(H) <14 ng/L 12/24/2024 6:11 AM EDT [facility] Troponin Delta 4 <10 ng/L 12/24/2024 6:11 AM EDT [facility] Troponin Delta Interpretation Not Significant 12/24/2024 6:11 AM EDT [facility] Comment:Not Significant. No acute change in troponin observed between the baseline and 2 hour samples. Blood Venous blood specimen / Unknown Venipuncture / Unknown 12/24/2024 5:34 AM EDT 12/24/2024 5:43 AM EDT Martha Chang APRN LAB BLOOD ORDERABLES Fin al Result [facility] [address] [place] [address] * XR Elbow Right 3+ View (12/24/2024 4:47 AM EDT) Anatomical Region Laterality Modality Upper Extremities, Elbow Right Digital Radiography Impressions 12/24/2024 5:25 AM EDT No acute fracture or dislocation. CRITICAL RESULT: No. COMMUNICATION: Per this written report. Drafted by Pablo Willard MD on 12/24/2024 5:24 AM Final report signed by Pablo Willard MD on 12/24/2024 5:25 AM Narrative 12/24/2024 5:25 AM EDT CLINICAL INDICATION: Fall / Trauma / AMS TECHNIQUE: XR ELBOW RIGHT 3+ VIEWS COMPARISON: None. FINDINGS: No acute fracture dislocation or acute bone abnormality. No large joint effusion. Procedure Note Pablo Willard MD - 12/24/2024 CLINICAL INDICATION: Fall / Trauma / AMS TECHNIQUE: XR ELBOW RIGHT 3+ VIEWS COMPARISON: None. FINDINGS: No acute fracture dislocation or acute bone abnormality. No large jointeffusion. IMPRESSION: No acute fracture or dislocation. CRITICAL RESULT: No. COMMUNICATION: Per this written report. Drafted by Pablo Willard MD on 12/24/2024 5:24 AM Final report signed by Pablo Willard MD on 12/24/2024 5:25 AM Martha Chang SUEDING MACHINE TENDER IMG XR PROCEDURES Final Result * XR Pelvis 1 or 2 Views (12/24/2024 4:47 AM EDT) Anatomical Region Laterality Modality Body, Pelvis Digital Radiogra phy Impressions 12/24/2024 5:30 AM EDT No acute pelvic fracture. CRITICAL RESULT: No. COMMUNICATION: Per this written report. Preliminary report signed by Madeline More MD on 12/24/2024 5:28 AM By electronically signing this report, I, the attending physician, attest that I have personally reviewed the images/data for the above examination(s) and agree with the final edited report. Drafted by Madeline More MD on 12/24/2024 5:26 AM Final report signed by Pablo Willard MD on 12/24/2024 5:30 AM Narrative 12/24/2024 5:30 AM EDT CLINICAL INDICATION: Fall / Trauma / AMS TECHNIQUE: XR PELVIS 1 OR 2 VIEWS COMPARISON: None. FINDINGS: No acute fracture. The femoral heads are seen within the acetabula bilaterally. No widening of the pubic symphysis. The sacroiliac joints are well aligned. Sacral nerve stimulator. Procedure Note Pablo Willard MD - 12/24/2024 CLINICAL INDICATION: Fall / Trauma / AMS TECHNIQUE: XR PELVIS 1 OR 2 VIEWS COMPARISON: None. FINDINGS: No acute fracture. The femoral heads are seen within the acetabulabilaterally. No widening of the pubic symphysis. The sacroiliac joints arewell aligned. Sacral nerve stimulator. IMPRESSION: No acute pelvic fracture. CRITICAL RESULT: No. COMMUNICATION: Per this written report. Preliminary report signed by Madeline More MD on 12/24/2024 5:28 AM By electronically signing this report, I, the attending physician, attestthat I have personally reviewed the images/data for the aboveexamination(s) and agree with the final edited report. Drafted by Madeline More MD on 12/24/2024 5:26 AM Final report signed by Pablo Willard MD on 12/24/2024 5:30 AM Martha Chang APRN IMG XR PROCEDURES Final Result * XR Chest 1 View (12/24/2024 4:47 AM EDT) Anatomical Region Laterality Modality Chest Digital Radiogra phy Impressions 12/24/2024 5:15 AM EDT Coronary artery stents. IMPRESSION: No acute abnormality. CRITICAL RESULT: No. COMMUNICATION: Per this written report. Drafted by Pablo Willard MD on 12/24/2024 5:14 AM Final report signed by Pablo Willard MD on 12/24/2024 5:15 AM Narrative 12/24/2024 5:15 AM EDT CLINICAL INDICATION: Fall / Trauma / AMS TECHNIQUE: XR CHEST 1 VIEW Findings: Old calcified granulomatous disease. Vascular calcifications. No large focal consolidation pneumothorax or large effusion. No obvious displaced rib fractures. Procedure Note Pablo Willard MD - 12/24/2024 CLINICAL INDICATION: Fall / Trauma / AMS TECHNIQUE: XR CHEST 1 VIEW Findings: Old calcified granulomatous disease. Vascular calcifications. No largefocal consolidation pneumothorax or large effusion. No obvious displacedrib fractures. IMPRESSION: Coronary artery stents. IMPRESSION: No acute abnormality. CRITICAL RESULT: No. COMMUNICATION: Per this written report. 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 Drafted by Pablo Willard MD on 12/24/2024 5:11 AM Final report signed by Pablo Willard MD on 12/24/2024 5:11 AM Impressions 12/24/2024 5:09 AM EDT No acute intracranial abnormality. No acute fracture or traumatic subluxation of the cervical spine. CRITICAL RESULT: No. COMMUNICATION: Per this written report. Drafted by Pablo Willard MD on 12/24/2024 5:06 AM Final report signed by Pablo Willard MD on 12/24/2024 5:09 AM Narrative 12/24/2024 5:09 AM EDT CLINICAL INDICATION: Mental status change, unknown cause TECHNIQUE: Routine contiguous axial CT images of the head were obtained without contrast administration. CT scan of cervical spine without contrast with subsequent multiplanar reconstructions. Total DLP (Dose-Length Product): 1130.25 mGy.cm (accession [id number]), 1130.25 mGy.cm (accession [id number]). Please note: The reported value represents the total of one or more individual components during the CT acquisition on this date and at this time, and as such, the same value may appear in more than one CT report depending on the interpreting/reporting physicians. COMPARISON: None. FINDINGS: CT scan of cervical spine: Limited [id number]. No acute fracture or traumatic subluxation. Straightening of the normal cervical lordosis. Mild probably chronic endplate irregularities at the lower cervical spine mild disc osteophytic ridging. No prevertebral soft tissue swelling. No apical pneumothorax. Vascular calcifications. Old calcified granulomatous disease. Mild dextrocurvature in the cervical spine. CT scan of the head: Mild brain atrophy. Vascular calcifications noted. No acute intracranial abnormality. No evidence of acute hemorrhage or ischemia. No mass, mass effect, or midline displacement of structures. Normal ventricular size and configuration. Patent basal cisterns. No displaced or depressed calvarial fractures. Minimal opacities in the right mastoid air cells The visualized paranasal sinuses and mastoid air cells are clear. Procedure Note Pablo Willard MD - 12/24/2024 CLINICAL INDICATION: Mental status change, unknown cause TECHNIQUE: Routine contiguous axial CT images of the head were obtained withoutcontrast administration. CT scan of cervical spine without contrast with subsequent multiplanarreconstructions. Total DLP (Dose-Length Product): 1130.25 mGy.cm (accession [id number]),1130.25 mGy.cm (accession [id number]). Please note: The reported valuerepresents the total of one or more individual components during the CTacquisition on this date and at this time, and as such, the same value mayappear in more than one CT report depending on the interpreting/reportingphysicians. COMPARISON: None. FINDINGS: CT scan of cervical spine: Limited [id number]. No acute fracture ortraumatic subluxation. Straightening of the normal cervical lordosis. Mildprobably chronic endplate irregularities at the lower cervical spine milddisc osteophytic ridging. No prevertebral soft tissue swelling. No apicalpneumothorax. Vascular calcifications. Old calcified granulomatousdisease. Mild dextrocurvature in the cervical spine. CT scan of the head: Mild brain atrophy. Vascular calcifications noted. No acute intracranial abnormality. No evidence of acute hemorrhage orischemia. No mass, mass effect, or midline displacement of structures.Normal ventricular size and configuration. Patent basal cisterns. No displaced or depressed calvarial fractures. Minimal opacities in theright mastoid air cells The visualized paranasal sinuses and mastoid aircells are clear. IMPRESSION: No acute intracranial abnormality. No acute fracture or traumatic subluxation of the cervical spine. CRITICAL RESULT: No. COMMUNICATION: Per this written report. 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 Drafted by Pablo Willard MD on 12/24/2024 5:11 AM Final report signed by Pablo Willard MD on 12/24/2024 5:11 AM Impressions 12/24/2024 5:09 AM EDT No acute intracranial abnormality. No acute fracture or traumatic subluxation of the cervical spine. CRITICAL RESULT: No. COMMUNICATION: Per this written report. Drafted by Pablo Willard MD on 12/24/2024 5:06 AM Final report signed by Pablo Willard MD on 12/24/2024 5:09 AM Narrative 12/24/2024 5:09 AM EDT CLINICAL INDICATION: Mental status change, unknown cause TECHNIQUE: Routine contiguous axial CT images of the head were obtained without contrast administration. CT scan of cervical spine without contrast with subsequent multiplanar reconstructions. Total DLP (Dose-Length Product): 1130.25 mGy.cm (accession [id number]), 1130.25 mGy.cm (accession [id number]). Please note: The reported value represents the total of one or more individual components during the CT acquisition on this date and at this time, and as such, the same value may appear in more than one CT report depending on the interpreting/reporting physicians. COMPARISON: None. FINDINGS: CT scan of cervical spine: Limited [id number]. No acute fracture or traumatic subluxation. Straightening of the normal cervical lordosis. Mild probably chronic endplate irregularities at the lower cervical spine mild disc osteophytic ridging. No prevertebral soft tissue swelling. No apical pneumothorax. Vascular calcifications. Old calcified granulomatous disease. Mild dextrocurvature in the cervical spine. CT scan of the head: Mild brain atrophy. Vascular calcifications noted. No acute intracranial abnormality. No evidence of acute hemorrhage or ischemia. No mass, mass effect, or midline displacement of structures. Normal ventricular size and configuration. Patent basal cisterns. No displaced or depressed calvarial fractures. Minimal opacities in the right mastoid air cells The visualized paranasal sinuses and mastoid air cells are clear. Procedure Note Pablo Willard MD - 12/24/2024 CLINICAL INDICATION: Mental status change, unknown cause TECHNIQUE: Routine contiguous axial CT images of the head were obtained withoutcontrast administration. CT scan of cervical spine without contrast with subsequent multiplanarreconstructions. Total DLP (Dose-Length Product): 1130.25 mGy.cm (accession [id number]),1130.25 mGy.cm (accession [id number]). Please note: The reported valuerepresents the total of one or more individual components during the CTacquisition on this date and at this time, and as such, the same value mayappear in more than one CT report depending on the interpreting/reportingphysicians. COMPARISON: None. FINDINGS: CT scan of cervical spine: Limited [id number]. No acute fracture ortraumatic subluxation. Straightening of the normal cervical lordosis. Mildprobably chronic endplate irregularities at the lower cervical spine milddisc osteophytic ridging. No prevertebral soft tissue swelling. No apicalpneumothorax. Vascular calcifications. Old calcified granulomatousdisease. Mild dextrocurvature in the cervical spine. CT scan of the head: Mild brain atrophy. Vascular calcifications noted. No acute intracranial abnormality. No evidence of acute hemorrhage orischemia. No mass, mass effect, or midline displacement of structures.Normal ventricular size and configuration. Patent basal cisterns. No displaced or depressed calvarial fractures. Minimal opacities in theright mastoid air cells The visualized paranasal sinuses and mastoid aircells are clear. IMPRESSION: No acute intracranial abnormality. No acute fracture or traumatic subluxation of the cervical spine. CRITICAL RESULT: No. COMMUNICATION: Per this written report. Drafted by Pablo Willard MD on 12/24/2024 5:06 AM Final report signed by Pablo Willard MD on 12/24/2024 5:09 AM Martha Chang APRN IM CT PROCEDURES Edited Result - Final * (ABNORMAL) Hemoglobin A1c (12/24/2024 3:31 AM EDT) Hemoglobin A1c 8.4(H) <5.7 % 12/24/2024 11:34 PM EDT [facility] Blood Venous blood specimen / Unknown Venipuncture / Unknown 12/24/2024 3:31 AM EDT 12/24/2024 3:36 AM EDT Narrative [facility] - 12/24/2024 11:34 PM EDT HA1C Interpretive Data: Diagnosis of Diabetes: Diabetic > or = 6.5% Pre-diabetic 5.7 to 6.4% Non-diabetic < or = 5.6% Glycemic Targets for Type I and Type II Diabetics: Non- Adults <7.0% Adults <6.0% Children and Adolescents <7.5% Source: [place] [employer]. Standards of medical care in diabetes,2017. Diabetes Care.2017:40 (suppl 1):S1-S135. us Prabhjot Mehta MD LAB BLOOD ORDERABLES Final Resul t Performing Organization Address City/[facility]/ZIP Co de Phone Number [facility] [address] [place] [address] * Ammonia (12/24/2024 3:31 AM EDT) Ammonia 46 11 - 51 umol/L 12/24/2024 4:16 AM EDT [facility] Blood Venous blood specimen / Unknown Venipuncture / Unknown 12/24/2024 3:31 AM EDT 12/24/2024 3:41 AM EDT Martha Chang APRN LAB BLOOD ORDERABLES Fin al Result Performing Organization Address [facility] Co de Phone Number [facility] [address] [place] [address] * (ABNORMAL) Troponin now and 120 min (12/24/2024 3:31 AM EDT) Troponin T, High Sensitivity, 0 Hour 30(H) <14 ng/L 12/24/2024 4:10 AM EDT [facility] Blood Venous blood specimen / Unknown Venipuncture / Unknown 12/24/2024 3:31 AM EDT 12/24/2024 3:41 AM EDT Martha Chang APRN LAB BLOOD ORDERABLES Fin al Result Performing Organization Address City/[facility] Co de Phone Number [facility] [address] [place] [address] * (ABNORMAL) Blood gas panel, venous (12/24/2024 3:31 AM EDT) pH, Venous 7.26(L) 7.32 - 7.43 LAB HEMATOLOGY METHOD 12/24/2024 3:43 AM EDT [facility] pCO2, Venous 39 37 - 52 mmHg LAB HEMATOLOGY METHOD 12/24/2024 3:43 AM EDT [facility] pO2, Venous 64(H) 25 - 40 mmHg LAB HEMATOLOGY METHOD 12/24/2024 3:43 AM EDT [facility] SO2, Measured, Venous 91(H) 65 - 80 % LAB HEMATOLOGY METHOD 12/24/2024 3:43 AM EDT [facility] Base Excess, Venous -8.7(L) -2.0 - 3.0 mmol/L LAB HEMATOLOGY METHOD 12/24/2024 3:43 AM EDT [facility] Bicarbonate, Calculated, Venous 18(L) 22 - 26 mmol/L LAB HEMATOLOGY METHOD 12/24/2024 3:43 AM EDT [facility] Hematocrit, Whole Blood 47.7(H) 34.0 - 45.0 % LAB HEMATOLOGY METHOD 12/24/2024 3:43 AM EDT [facility] Sodium, Whole Blood 136 136 - 145 mmol/L LAB HEMATOLOGY METHOD 12/24/2024 3:43 AM EDT [facility] Potassium, Whole Blood 4.0 3.6 - 4.9 mmol/L LAB HEMATOLOGY METHOD 12/24/2024 3:43 AM EDT [facility] Chloride, Whole Blood 110(H) 97 - 107 mmol/L LAB HEMATOLOGY METHOD 12/24/2024 3:43 AM EDT [facility] Glucose, Whole Blood 147(H) 74 - 99 mg/dL LAB HEMATOLOGY METHOD 12/24/2024 3:43 AM EDT [facility] Lactate, Venous, Whole Blood 1.0 0.5 - 2.2 mmol/L LAB HEMATOLOGY METHOD 12/24/2024 3:43 AM EDT [facility] Ionized Calcium, Whole Blood 5.1 4.6 - 5.1 mg/dL LAB HEMATOLOGY METHOD 12/24/2024 3:43 AM EDT [facility] Blood Venous blood specimen / Unknown Venipuncture / Unknown 12/24/2024 3:31 AM EDT 12/24/2024 3:42 AM EDT Martha Chang APRN LAB BLOOD ORDERABLES Fin al Result [facility] [address] [place] [address] * (ABNORMAL) CMP (12/24/2024 3:31 AM EDT) Pathologist [facility] Glucose, Plasma 146(H) 74 - 99 mg/dL 12/24/2024 4:10 AM EDT [facility] BUN, Plasma 70(H) 8 - 23 mg/dL 12/24/2024 4:10 AM EDT [facility] Creatinine, Plasma 1.73(H) 0.60 - 1.10 mg/dL 12/24/2024 4:10 AM EDT [facility] BUN/Creatinine Ratio 40 12/24/2024 4:10 AM EDT [facility] Sodium, Plasma 135(L) 136 - 145 mmol/L 12/24/2024 4:10 AM EDT [facility] Potassium, Plasma 4.1 3.6 - 4.9 mmol/L 12/24/2024 4:10 AM EDT [facility] Chloride, Plasma 104 97 - 107 mmol/L 12/24/2024 4:10 AM EDT [facility] CO2, Plasma 16(L) 22 - 29 mmol/L 12/24/2024 4:10 AM EDT [facility] Anion Gap 15 6 - 16 mmol/L 12/24/2024 4:10 AM EDT [facility] Total Calcium, Plasma 9.8 8.9 - 10.2 mg/dL 12/24/2024 4:10 AM EDT [facility] Total Protein 8.6(H) 6.3 - 7.9 g/dL 12/24/2024 4:10 AM EDT [facility] Albumin, Plasma 4.7 3.5 - 5.2 g/dL 12/24/2024 4:10 AM EDT [facility] AST, Plasma 38(H) 10 - 35 U/L 12/24/2024 4:10 AM EDT [facility] ALT, Plasma 32 10 - 35 U/L 12/24/2024 4:10 AM EDT [facility] Alkaline Phosphatase, Plasma 184(H) 46 - 142 U/L 12/24/2024 4:10 AM EDT [facility] Total Bilirubin, Plasma 0.4 0.2 - 1.1 mg/dL 12/24/2024 4:10 AM EDT [facility] eGFRcr 33.5 mL/min/1.7 3m*2 12/24/2024 4:10 AM EDT [facility] Comment:Reported eGFRcr in m L/min/1.73m2 is based the CKD-EPI 2020 equation that does not use a race coefficient. Blood Venous blood specimen / Unknown Venipuncture / Unknown 12/24/2024 3:31 AM EDT 12/24/2024 3:41 AM EDT Martha Chang APRN LAB BLOOD ORDERABLES Fin al Result [facility] [address] [place] [address] * (ABNORMAL) PT-INR (12/24/2024 3:31 AM EDT) Prothrombin Time 15.2(H) 12.0 - 14.3 sec 12/24/2024 3:54 AM EDT [facility] INR 1.2(H) 0.9 - 1.1 12/24/2024 3:54 AM EDT [facility] Blood Venous blood specimen / Unknown Venipuncture / Unknown 12/24/2024 3:31 AM EDT 12/24/2024 3:37 AM EDT Narrative [facility] - 12/24/2024 3:54 AM EDT OPTIMAL INR RANGES FOR PATIENT ON ORAL ANTICOAGULANT THERAPY Prevention of venous thromboembolism INR 2.0 to 3.0 In patients with heart disease: Atrial fibrillation INR 2.0 to 3.0 Valvular heart disease INR 2.0 to 3.0 Tissue heart valves INR 2.0 to 3.0 Mechanical prosthetic valves INR 2.5 to 3.5 Prevention of recurrent MT INR 2.5 to 3.5 Martha Chang APRN LAB BLOOD ORDERABLES Fin al Result [facility] [address] [place] [address] * (ABNORMAL) CBC w/diff (12/24/2024 3:31 AM EDT) WBC Count 10.89(H) 3.70 - 10.30 10*3/uL LAB HEMATOLOGY METHOD 12/24/2024 3:40 AM EDT [facility] RBC Count 5.52(H) 3.90 - 5.20 10*6/uL LAB HEMATOLOGY METHOD 12/24/2024 3:40 AM EDT [facility] HGB 15.4 11.2 - 15.7 g/dL LAB HEMATOLOGY METHOD 12/24/2024 3:40 AM EDT [facility] HCT 44.0 34.0 - 45.0 % LAB HEMATOLOGY METHOD 12/24/2024 3:40 AM EDT [facility] Platelet Count 122(L) 155 - 369 10*3/uL LAB HEMATOLOGY METHOD 12/24/2024 3:40 AM EDT [facility] MCV 80 79 - 98 fL LAB HEMATOLOGY METHOD 12/24/2024 3:40 AM EDT [facility] MCH 27.9 26.0 - 32.0 pg LAB HEMATOLOGY METHOD 12/24/2024 3:40 AM EDT [facility] MCHC 35.0 30.7 - 35.5 g/dL LAB HEMATOLOGY METHOD 12/24/2024 3:40 AM EDT [facility] RDW 16.9(H) 11.5 - 14.5 % LAB HEMATOLOGY METHOD 12/24/2024 3:40 AM EDT [facility] MPV 9.4 8.8 - 12.5 fL LAB HEMATOLOGY METHOD 12/24/2024 3:40 AM EDT [facility] nRBC 0.0 <=0.0 per 100 WBCs LAB HEMATOLOGY METHOD 12/24/2024 3:40 AM EDT [facility] Differential Type Automated LAB HEMATOLOGY METHOD 12/24/2024 3:40 AM EDT [facility] Neutrophils % 56 % LAB HEMATOLOGY METHOD 12/24/2024 3:40 AM EDT [facility] Lymphocytes % 35 % LAB HEMATOLOGY METHOD 12/24/2024 3:40 AM EDT [facility] Monocytes % 7 % LAB HEMATOLOGY METHOD 12/24/2024 3:40 AM EDT [facility] Eosinophils % 1 % LAB HEMATOLOGY METHOD 12/24/2024 3:40 AM EDT [facility] Basophils % 1 % LAB HEMATOLOGY METHOD 12/24/2024 3:40 AM EDT [facility] Immature Granulocytes % 0 % LAB HEMATOLOGY METHOD 12/24/2024 3:40 AM EDT [facility] Neutrophils Absolute 6.01 1.60 - 6.10 10*3/uL LAB HEMATOLOGY METHOD 12/24/2024 3:40 AM EDT [facility] Lymphocytes Absolute 3.81 1.20 - 3.90 10*3/uL LAB HEMATOLOGY METHOD 12/24/2024 3:40 AM EDT [facility] Monocytes Absolute 0.80 0.30 - 0.90 10*3/uL LAB HEMATOLOGY METHOD 12/24/2024 3:40 AM EDT [facility] Eosinophils Absolute 0.15 0.00 - 0.50 10*3/uL LAB HEMATOLOGY METHOD 12/24/2024 3:40 AM EDT [facility] Basophils Absolute 0.09 0.00 - 0.10 10*3/uL LAB HEMATOLOGY METHOD 12/24/2024 3:40 AM EDT [facility] Immature Granulocytes Absolute 0.03 0.00 - 0.06 10*3/uL LAB HEMATOLOGY METHOD 12/24/2024 3:40 AM EDT [facility] Blood Venous blood specimen / Unknown Venipuncture / Unknown 12/24/2024 3:31 AM EDT 12/24/2024 3:36 AM EDT [facility] - 12/24/2024 3:40 AM EDT Therapeutic decision making should be based on absolute values, rather than percentages. us Martha Chang APRN LAB BLOOD ORDERABLES Fin al Result [facility] [address] [place] [address] * EKG now - STAT (adult) (12/24/2024 3:16 AM EDT) Pathologist [facility] EKG DIAGNOSIS CLASS Abnormal MUSE ECG Ventricular Rate 61 BPM MUSE ECG Atrial Rate 61 BPM MUSE ECG MT Interval 138 ms MUSE ECG QRSD Interval 98 ms MUSE ECG QT Interval 408 ms MUSE ECG QTC Interval 410 ms MUSE ECG P Crane 62 degrees MUSE ECG R Crane 18 degrees MUSE ECG T Wave Crane 106 degrees MUSE ECG Diagnosis Normal sinus rhythm MUSE ECG Diagnosis Possible Left atrial enlargement MUSE ECG Diagnosis Incomplete right bundle branch block MUSE ECG Diagnosis ST & T wave abnormality, consider lateral ischemia MUSE ECG Diagnosis Pulmonary disease pattern MUSE ECG Diagnosis Abnormal ECG MUSE ECG Diagnosis MUSE ECG Diagnosis Confirmed by Javed Zavaleta ([id number]) on 12/24/2024 11:34:46 AM MUSE ECG 12/24/2024 3:16 AM EDT 12/24/2024 11:34 AM EDT Martha Chang SUEDING MACHINE TENDER ECG ORDERABLES Final Re sult MUSE ECG * (ABNORMAL) POCT glucose meter (12/24/2024 2:58 AM EDT) [facility] POCT Glucose 173(H) 74 - 99 mg/dL 12/24/2024 3:00 AM EDT [facility] Comment:Accuracy of a glucos e result obtained from a capillary whole blood specimen relies upon adequate, non-compromised capillary blood flow. If the capillary glucose result is not consistent with the patient's clinical signs and symptoms, glucose testing should be repeated with either an arterial or venous sample on the glucometer or sent to the main labortory for testing. Comment 12/24/2024 3:00 AM EDT [facility] Wheel Blocker ID Alexx Mercer 3:00 AM EDT [facility] Device ID [id number] 12/24/2024 3:00 AM EDT [facility] Specimen Type POC Capillary 12/24/2024 3:00 AM EDT [facility] Blood Capillary blood specimen / Unknown 12/24/2024 2:58 AM EDT 12/24/2024 3:00 AM EDT us Generic Provider Poct LAB POINT OF CARE TEST DOCKED DEVICE UNSOLICITED RESULTS Final Result [facility] [address] [place] [address] documented in this encounter Visit Diagnoses Diagnosis Acute encephalopathy- Primary Altered mental status, unspecified altered mental status type Falls frequently Personal history of fall Physical debility Other cirrhosis of liver (CMS/HCC) Hepatic encephalopathy (CMS/HCC) Hepatic encephalopathy Polypharmacy Issue of repeat prescriptions Debility Unspecified debility Falls frequently Personal history of fall Acute kidney injury superimposed on CKD (CMS/HCC) COPD (chronic obstructive pulmonary disease) (CMS/HCC) Chronic airway obstruction, not elsewhere classified Diabetes mellitus (CMS/HCC) Type II or unspecified type diabetes mellitus without mention of complication, not stated as uncontrolled Presence of colostomy (CMS/HCC) Essential hypertension Unspecified essential hypertension Thyroid disease Unspecified disorder of thyroid Cirrhosis (CMS/HCC) Cirrhosis of liver without mention of alcohol Metabolic acidosis Acidosis Mood disorder (CMS/HCC) Unspecified episodic mood disorder Altered mental status documented in this encounter Admitting Diagnoses Diagnosis Acute encephalopathy documented in this encounter Administered Medications Inactive Administered Medications - up to 3 most recent administrations Medication Order MAR Action Action Date Dose Rate Site acetaminophen (Tylenol) tablet 500 mg 500 mg, Oral, Every 6 hours PRN, Starting on Sat12/24/24 at 1759, Until Sat12/25/24 at 2115, Routine, headaches, fever Given 12/25/2024 3:45 AM EDT 500 mg aspirin chewable tablet 81 mg 81 mg, Oral, Daily, First dose on Sat12/24/24 at 1730, Until Discontinued, Routine Given 12/25/2024 8:05 AM EDT 81 mg Given 12/24/2024 6:04 PM EDT 81 mg busPIRone (Buspar) tablet 10 mg 10 mg, Oral, 2 times daily, First dose on Sat12/24/24 at 2100, Until Discontinued, Routine Given 12/25/2024 8:06 AM EDT 10 mg Given 12/24/2024 8:26 PM EDT 10 mg cholecalciferol (Vitamin D-3) tablet 2,000 Units 2,000 Units, Oral, Daily, First dose on Sat12/24/24 at 1730, Until Discontinued Given 12/25/2024 8:05 AM E DT 2,000 Units Given 12/24/2024 6:04 PM EDT 2,000 Units dextrose 10 % (D10W) bolus 125 mL 125 mL, Intravenous, Every 15 min PRN, Starting on Sat12/24/24 at 1758, Until Sat12/25/24 at 2115, Administer over 15 Minutes, Routine, low blood sugar BG 51-89 mg/dL dextrose 10 % (D10W) bolus 250 mL 250 mL, Intravenous, Every 15 min PRN, Starting on Sat12/24/24 at 1758, Until Sat12/25/24 at 2115, Administer over 15 Minutes, Routine, PRN low blood sugar BG =/<50 mg/dL enoxaparin (Lovenox) syringe 40 mg 40 mg, Subcutaneous, Daily, First dose on Sat12/25/24 at 1525, Until Discontinued, Routine glucagon (human recombinant) injection 1 mg 1 mg, Intramuscular, Every 15 min PRN, Starting on Sat12/24/24 at 1758, Until Sat12/25/24 at 2115, Routine, low blood sugar per Hypoglycemia Prevention and Treatment protocol glucose (Glutose) 40 % oral gel 15-30 grams of glucose 15-30 grams of glucose, Sublingual, Every 15 min PRN, Starting on Sat12/24/24 at 1758, Until Sat12/25/24 at 2115, Routine, low blood sugar, per Hypoglycemia Prevention and Treatment protocol insulin glargine-yfgn 100 UNIT/ML injection 25 Units 25 Units, Subcutaneous, Daily, First dose on Sat12/24/24 at 1800, Until Discontinued, Routine Given 12/24/2024 6:17 PM EDT 25 Units Left Upper Arm (Back ) insulin glargine-yfgn 100 UNIT/ML injection 30 Units 30 Units, Subcutaneous, Daily, First dose (after last modification) on Sat12/25/24 at 0900, Until Discontinued, Routine Given 12/25/2024 8:16 AM EDT 30 Units Left Lower Abdomen insulin lispro (Admelog) 100 units/mL injection - Correction - Standard Dose 0-5 Units, Subcutaneous, 3 times daily with meals, First dose on Sat12/24/24 at 1750, Until Discontinued, Routine Given 12/25/2024 6:11 PM EDT 2 Units Left Upper Arm (Back ) Given 12/25/2024 2:04 PM EDT 3 Units Le ft Upper Arm (Back) Given 12/25/2024 8:16 AM EDT 2 Units Le ft Lower Abdomen insulin lispro (Admelog) injection - Correction - Nighttime Dose 0-3 Units, Subcutaneous, 2 times nightly (2100 & 0300), First dose on Sat12/24/24 at 2100, Until Discontinued, Routine Given 12/24/2024 8:29 PM EDT 2 Units Left Upper Arm (Back ) ipratropium-albuterol (Duo-Neb) 0.5-2.5 mg/3 mL nebulizer solution 3 mL 3 mL, Nebulization, Every 6 hours PRN, Starting on Sat12/25/24 at 0756, Until Sat12/25/24 at 2115, Routine, shortness of breath, wheezing lactulose (Chronulac) 10 GM/15ML solution 20 g 20 g, Oral, 3 times daily, First dose on Sat12/24/24 at 1120, Until Discontinued, Routine Given 12/25/2024 4:30 PM EDT 20 g Given 12/25/2024 8:07 AM EDT 20 g Given 12/24/2024 8:25 PM EDT 20 g lamoTRIgine (LaMICtal) tablet 100 mg 100 mg, Oral, 2 times daily, First dose on Sat12/24/24 at 2100, Until Discontinued, Routine Given 12/25/2024 8:06 AM EDT 100 mg Given 12/24/2024 8:26 PM EDT 100 mg levothyroxine (Synthroid, Levoxyl) tablet 125 mcg 125 mcg, Oral, Daily before breakfast, First dose on Sat12/25/24 at 0730, Until Discontinued, Routine Given 12/25/2024 8:06 AM EDT 125 mcg lidocaine (Lidoderm) 5 % patch 2 patch 2 patch, Apply externally, Every 24 hours, First dose on Sat12/25/24 at 0745, Until Discontinued, Administer over 12 Hours, Routine magnesium oxide (Mag-Ox) tablet 400 mg 400 mg, Oral, Daily, First dose on Sat12/24/24 at 1730, Until Discontinued, Routine Given 12/25/2024 8:05 AM EDT 400 mg Given 12/24/2024 6:04 PM EDT 400 mg nicotine (Nicoderm CQ) 21 MG/24HR patch 1 patch 1 patch, Transdermal, Daily, First dose on Sat12/25/24 at 0900, Until Discontinued, Routine Medication Applied 12/25/2024 8:04 AM EDT 1 patch Left Arm ondansetron (Zofran) 4 MG/5ML solution 4 mg 4 mg, Oral, Every 6 hours PRN, Starting on Sat12/25/24 at 1415, Until Sat12/25/24 at 2115, Routine, nausea, vomiting ondansetron (Zofran) injection 4 mg 4 mg, Intravenous, Every 6 hours PRN, Starting on Sat12/25/24 at 1415, Until Sat12/25/24 at 211, Routine, vomiting, nausea Given 12/25/2024 2:30 PM EDT 4 mg ondansetron ODT (Zofran-ODT) disintegrating tablet 4 mg 4 mg, Oral, Every 6 hours PRN, Starting on Sat12/25/24 at 1415, Until Sat12/25/24 at 211, Routine, nausea, vomiting pantoprazole (Protonix) EC tablet 40 mg 40 mg, Oral, Daily, First dose on Sat12/24/24 at 1730, Until Discontinued, Routine Given 12/25/2024 8:06 AM EDT 40 mg Given 12/24/2024 6:04 PM EDT 40 mg pregabalin (Lyrica) capsule 75 mg 75 mg, Oral, 2 times daily, First dose on Sat12/24/24 at 2100, Until Discontinued, Routine Given 12/25/2024 8:06 AM EDT 75 mg Given 12/24/2024 8:25 PM EDT 75 mg propranolol LA (Inderal LA) 24 hr capsule 160 mg 160 mg, Oral, Daily, First dose on Sat12/24/24 at 1730, Until Discontinued Given 12/25/2024 8:22 AM EDT 160 mg Given 12/24/2024 6:04 PM EDT 160 mg ranolazine (Ranexa) 12 hr tablet 500 mg 500 mg, Oral, 2 times daily, First dose on Sat12/24/24 at 2100, Until Discontinued, Routine Given 12/25/2024 8:22 AM EDT 500 mg Given 12/24/2024 8:45 PM EDT 500 mg rosuvastatin (Crestor) tablet 20 mg 20 mg, Oral, Nightly, First dose on Sat12/24/24 at 2100, Until Discontinued, Routine Given 12/24/2024 8:25 PM EDT 20 mg sodium chloride 0.9 % flush 10 mL 10 mL, Intravenous, Every 12 hours, First dose on Sat12/24/24 at 0705, Until Discontinued, Routine Given 12/25/2024 6:12 PM EDT 10 mL Given 12/25/2024 8:08 AM EDT 10 mL Given 12/24/2024 6:18 PM EDT 10 mL sodium chloride 0.9 % flush 10 mL 10 mL, Intravenous, As needed, Starting on Sat12/24/24 at 0701, Until Sat12/25/24 at 2115, Routine, line care venlafaxine XR (Effexor-XR) 24 hr capsule 150 mg 150 mg, Oral, Daily with breakfast, First dose on Sat12/25/24 at 0800, Until Discontinued Given 12/25/2024 8:06 AM EDT 150 mg documented in this encounter Active and Recently Administered Medications Times are shown in EDT. Scheduled Medication Order 12/23/2024 12/24/2024 12/25/2024 aspirin chewable tablet 81 mg 81 mg, Oral, Daily, First dose on Sat12/24/24 at 1730, Until Discontinued, Routine 180 (Given - Provider: Ksenia Marrufo) 08 (Given - Provider: Irma Paz RN) busPIRone (Buspar) tablet 10 mg 10 mg, Oral, 2 times daily, First dose on Sat12/24/24 at 2100, Until Discontinued, Routine 2025 (Given - Provider: Nicole Saucedo) 08 (Given - Provider: Irma Paz RN)2100 (Canceled Entry - Provider: Automatic Discharge Provider - Comment: Automatically canceled at discontinue of medication order) cholecalciferol (Vitamin D-3) tablet 2,000 Units 2,000 Units, Oral, Daily, First dose on Sat12/24/24 at 1730, Until Discontinued 1804 (Given - Provider: Ksenia Marrufo) 0805 (Given - Provider: Irma Paz RN) enoxaparin (Lovenox) syringe 40 mg 40 mg, Subcutaneous, Daily, First dose on Sat12/25/24 at 1525, Until Discontinued, Routine 1618 (Not Given - Provider: Irma Paz RN - Reason: Patient/family refused) insulin glargine-yfgn 100 UNIT/ML injection 25 Units (CANCELED) 25 Units, Subcutaneous, Daily, First dose on Sat12/24/24 at 1800, Until Discontinued, Routine 1817 (Given - Provider: Ksenia Marrufo) insulin glargine-yfgn 100 UNIT/ML injection 30 Units 30 Units, Subcutaneous, Daily, First dose (after last modification) on Sat12/25/24 at 0900, Until Discontinued, Routine 0816 (Given - Provid er: Irma Paz RN) insulin lispro (Admelog) 100 units/mL injection - Correction - Standard Dose 0-5 Units, Subcutaneous, 3 times daily with meals, First dose on Sat12/24/24 at 1750, Until Discontinued, Routine 181 (Given - Provider: Ksenia Marrufo) 0816 (Given - Provider: Irma Paz RN)1404 (Given - Provider: Irma Paz RN)1811 (Given - Provider: Irma Paz RN) insulin lispro (Admelog) injection - Correction - Nighttime Dose 0-3 Units, Subcutaneous, 2 times nightly (2100 & 0300), First dose on Sat12/24/24 at 2100, Until Discontinued, Routine 2028 (Given - Provider: Nicole Saucedo) 0209 (Not Given - Provider: Elia Moralez RN - Reason: Order parameters not met - Comment: Per order do not give if 2300 glucose is less 91-249. BG at 0012 was 208)2100 (Canceled Entry - Provider: Automatic Discharge Provider - Comment: Automatically canceled at discontinue of medication order) lactulose (Chronulac) 10 GM/15ML solution 20 g 20 g, Oral, 3 times daily, First dose on Sat12/24/24 at 1120, Until Discontinued, Routine 1143 (Given - Provider: Patt Smith RN)1535 (Given - Provider: Ksenia Marrufo)202 (Given - Provider: Nicole Saucedo) 0807 (Given - Provider: Irma Paz RN)1630 (Given - Provider: Irma Paz RN)2100 (Canceled Entry - Provider: Automatic Discharge Provider - Comment: Automatically canceled at discontinue of medication order) lamoTRIgine (LaMICtal) tablet 100 mg 100 mg, Oral, 2 times daily, First dose on Sat12/24/24 at 2100, Until Discontinued, Routine 2025 (Given - Provider: Nicole Saucedo) 0806 (Given - Provider: Irma Paz RN)2100 (Canceled Entry - Provider: Automatic Discharge Provider - Comment: Automatically canceled at discontinue of medication order) levothyroxine (Synthroid, Levoxyl) tablet 125 mcg 125 mcg, Oral, Daily before breakfast, First dose on Sat12/25/24 at 0730, Until Discontinued, Routine 08 (Given - Provid er: Irma Paz RN) lidocaine (Lidoderm) 5 % patch 2 patch 2 patch, Apply externally, Every 24 hours, First dose on Sat12/25/24 at 0745, Until Discontinued, Administer over 12 Hours, Routine 0807 (Not Given - Provider: Irma Paz RN - Reason: Patient/family refused) magnesium oxide (Mag-Ox) tablet 400 mg 400 mg, Oral, Daily, First dose on Sat12/24/24 at 1730, Until Discontinued, Routine 1804 (Given - Provider: Ksenia Marrufo) 0805 (Given - Provider: Irma Paz RN) nicotine (Nicoderm CQ) 21 MG/24HR patch 1 patch 1 patch, Transdermal, Daily, First dose on Sat12/25/24 at 0900, Until Discontinued, Routine 0804 (Medication Jami lied - Provider: Irma Paz RN) pantoprazole (Protonix) EC tablet 40 mg 40 mg, Oral, Daily, First dose on Sat12/24/24 at 1730, Until Discontinued, Routine 1804 (Given - Provider: Ksenia Marrufo) 0806 (Given - Provider: Irma Paz RN) pregabalin (Lyrica) capsule 75 mg 75 mg, Oral, 2 times daily, First dose on Emma 12/24/24 at 2100, Until Discontinued, Routine 2024 (Given - Provider: Nicole Saucedo) 08 (Given - Provider: Irma Paz RN)2099 (Canceled Entry - Provider: Automatic Discharge Provider - Comment: Automatically canceled at discontinue of medication order) propranolol LA (Inderal LA) 24 hr capsule 160 mg 160 mg, Oral, Daily, First dose on Sat12/24/24 at 1730, Until Discontinued 1803 (Given - Provider: Ksenia Marrufo) 08 (Given - Provider: Irma Paz RN) ranolazine (Ranexa) 12 hr tablet 500 mg 500 mg, Oral, 2 times daily, First dose on Emma 12/24/24 at 2100, Until Discontinued, Routine 2044 (Given - Provider: Nicole Saucedo) 08 (Given - Provider: Irma Paz RN)2099 (Canceled Entry - Provider: Automatic Discharge Provider - Comment: Automatically canceled at discontinue of medication order) rosuvastatin (Crestor) tablet 20 mg 20 mg, Oral, Nightly, First dose on Sat12/24/24 at 2100, Until Discontinued, Routine 2024 (Given - Provider: Nicole Saucedo) 2099 (Canceled Entry - Provider: Automatic Discharge Provider - Comment: Automatically canceled at discontinue of medication order) sodium chloride 0.9 % flush 10 mL(Linked Group 1) 10 mL, Intravenous, Every 12 hours, First dose on Sat12/24/24 at 0705, Until Discontinued, Routine 826 (Given - Provider: Patt Smith RN)181 (Given - Provider: Ksenia Marrufo) 08 (Given - Provider: Irma Paz, [place])181 (Given - Provider: Irma Paz RN) venlafaxine XR (Effexor-XR) 24 hr capsule 150 mg 150 mg, Oral, Daily with breakfast, First dose on Sat12/25/24 at 0800, Until Discontinued 805 (Given - Provid er: Irma Paz RN) PRN Medication Order 12/23/2024 12/24/2024 12/25/2024 acetaminophen (Tylenol) tablet 500 mg 500 mg, Oral, Every 6 hours PRN, Starting on Sat12/24/24 at 1759, Until Sat12/25/24 at 2114, Routine, headaches, fever 0345 (Given - Provid er: Elia Moralez RN) ALPRAZolam (Xanax) tablet 0.75 mg 0.75 mg, Oral, 2 times daily PRN, Starting on Sat12/24/24 at 1728, Until Sat12/25/24 at 2114, Routine, anxiety dextrose 10 % (D10W) bolus 125 mL(Linked Group 2) 125 mL, Intravenous, Every 15 min PRN, Starting on Sat12/24/24 at 1758, Until Sat12/25/24 at 2114, Administer over 15 Minutes, Routine, low blood sugar BG 51-89 mg/dL dextrose 10 % (D10W) bolus 250 mL(Linked Group 2) 250 mL, Intravenous, Every 15 min PRN, Starting on Sat12/24/24 at 1758, Until Sat12/25/24 at 2114, Administer over 15 Minutes, Routine, PRN low blood sugar BG =/<50 mg/dL glucagon (human recombinant) injection 1 mg(Linked Group 2) 1 mg, Intramuscular, Every 15 min PRN, Starting on Sat12/24/24 at 1758, Until Sat12/25/24 at 2114, Routine, low blood sugar per Hypoglycemia Prevention and Treatment protocol glucose (Glutose) 40 % oral gel 15-30 grams of glucose(Linked Group 2) 15-30 grams of glucose, Sublingual, Every 15 min PRN, Starting on Sat12/24/24 at 1758, Until Sat12/25/24 at 2114, Routine, low blood sugar, per Hypoglycemia Prevention and Treatment protocol ipratropium-albuterol (Duo-Neb) 0.5-2.5 mg/3 mL nebulizer solution 3 mL 3 mL, Nebulization, Every 6 hours PRN, Starting on Sat12/25/24 at 0756, Until Sat12/25/24 at 2114, Routine, shortness of breath, wheezing ondansetron (Zofran) 4 MG/5ML solution 4 mg(Linked Group 3) 4 mg, Oral, Every 6 hours PRN, Starting on Sat12/25/24 at 1415, Until Sat12/25/24 at 2115, Routine, nausea, vomiting 1430 (See Alternativ e - Provider: Irma Paz RN) ondansetron (Zofran) injection 4 mg(Linked Group 3) 4 mg, Intravenous, Every 6 hours PRN, Starting on Sat12/25/24 at 1415, Until Sat12/25/24 at 2115, Routine, vomiting, nausea 1430 (Given - Provid er: Irma Paz RN) ondansetron ODT (Zofran-ODT) disintegrating tablet 4 mg(Linked Group 3) 4 mg, Oral, Every 6 hours PRN, Starting on Sat12/25/24 at 1415, Until Sat12/25/24 at 211, Routine, nausea, vomiting 1430 (See Alternativ e - Provider: Irma Paz RN) sodium chloride 0.9 % flush 10 mL(Linked Group 1) 10 mL, Intravenous, As needed, Starting on Sat12/24/24 at 0701, Until Sat12/25/24 at 2114, Routine, line care Linked Groups Order Group 1: Insert peripheral IV (CANCELED) Once, On Sat12/24/24 at 0702, For 1 occurrence And Saline lock IV (CANCELED) Once, On Sat12/24/24 at 0702, For 1 occurrence And sodium chloride 0.9 % flush 10 mLJump to med 10 mL, Intravenous, Every 12 hours, First dose on Sat12/24/24 at 0705, Until Discontinued, Routine And sodium chloride 0.9 % flush 10 mLJump to med 10 mL, Intravenous, As needed, Starting on Sat12/24/24 at 0701, Until Sat12/25/24 at 211, Routine, line care Group 2: glucose (Glutose) 40 % oral gel 15-30 grams of glucoseJump to med 15-30 grams of glucose, Sublingual, Every 15 min PRN, Starting on Sat12/24/24 at 1758, Until Sat12/25/24 at 2115, Routine, low blood sugar, per Hypoglycemia Prevention and Treatment protocol Or dextrose 10 % (D10W) bolus 125 mLJump to med 125 mL, Intravenous, Every 15 min PRN, Starting on Sat12/24/24 at 1758, Until Sat12/25/24 at 211, Administer over 15 Minutes, Routine, low blood sugar BG 51-89 mg/dL Or dextrose 10 % (D10W) bolus 250 mLJump to med 250 mL, Intravenous, Every 15 min PRN, Starting on Sat12/24/24 at 1758, Until Sat12/25/24 at 211, Administer over 15 Minutes, Routine, PRN low blood sugar BG =/<50 mg/dL Or glucagon (human recombinant) injection 1 mgJump to med 1 mg, Intramuscular, Every 15 min PRN, Starting on Sat12/24/24 at 1758, Until Sat12/25/24 at 2114, Routine, low blood sugar per Hypoglycemia Prevention and Treatment protocol Group 3: ondansetron ODT (Zofran-ODT) disintegrating tablet 4 mgJump to med 4 mg, Oral, Every 6 hours PRN, Starting on Sat12/25/24 at 1415, Until Sat12/25/24 at 2114, Routine, nausea, vomiting Or ondansetron (Zofran) injection 4 mgJump to med 4 mg, Intravenous, Every 6 hours PRN, Starting on Sat12/25/24 at 1415, Until Sat12/25/24 at 2114, Routine, vomiting, nausea Or ondansetron (Zofran) 4 MG/5ML solution 4 mgJump to med 4 mg, Oral, Every 6 hours PRN, Starting on Sat12/25/24 at 1415, Until Sat12/25/24 at 2114, Routine, nausea, vomiting documented in this encounter Additional Health Concerns Infection Onset Date Last Indicated Resolved Time MRSA Comment:Added from external infection. Source: [facility]. 11/21/2020 C. difficile 10/01/2024 10/01/2024 Assessment Noted Time PHQ-9 Depression Total Score: 22 025 10:58 AM EDT A fall risk assessment has been complete d for the patient 10/06/2024 2:45 PM EDT A Body Mass Index follow-up plan has been documented for the patient 12/25/2024 6:56 PM EDT documented as of this encounter Care Teams Agricultural Chemist Relationship Specialty Start Date End Date Avelino Salas MD [address] [place] [address] PCP - General 10/28/20 documented as of this encounter
--- OUTSIDE RECORDS SUMMARY | 2025-01-19 13:30 | XMS_ITS | Encounter Summary ---
Author Organization Healthcare Address [address] [place] [address] Care Team Providers Care Locker Room Supervisor Name Role Phone Avelino Salas MD Primary Care Provider + [phone] Encounter Details Date Type Department Care Team (Late Contact Info) Description 12/31/2023 Orders Only External Location [address] [place] [address] Provider, External Social History Tobacco Use Types [...] Description 04/09/2025 4:00 PM EDT Office Visit [facility] [place] [address] [facility], [address] [place] [address] Jordan Hanson MD [address] [place] [address] 06/22/2025 4:00 PM EST Office Visit [place] [facility] [address], [address] [place] [address] Elin Kelly MD [address] [place] [address] documented as of this encounter Procedures Procedure [...] Comment:Added from external infection. Source: [facility]. 11/21/2020 C. difficile 10/01/2024 10/01/2024 Assessment Noted Time A fall risk assessment has been complete d for the patient 07/12/2023 11:26 AM EST A Body Mass Index follow-up plan has been documented for the patient 07/30/2023 2:44 PM EST documented as of this encounter Care Teams Locker Room Supervisor Relationship Specialty Start Date End Date Avelino Salas MD [address] [place] [address] PCP - General 10/28/20 documented as of this encounter
--- OUTSIDE RECORDS SUMMARY | 2025-01-19 13:30 | XMS_ITS | Encounter Summary ---
Author Organization Healthcare Address [address] [place] [address] Care Team Providers Care Nurse Case Management Name Role Phone Avelino Salas MD Primary Care Provider + [phone] Encounter Details Date Type Department Care Team (Late st Contact Info) Description 12/02/2024 Results Follow-Up [facility] [address], [address] [place] [address] Elin Kelly MD [address] [place] [phone] Social History Tobacco Use Types Packs/Day Years [...] than half the days 12/02/2024 10:58 AM Jaime Quach Feeling bad about yourself - or [...] Description 04/09/2025 4:00 PM EDT Office Visit [facility] [place] [address] [facility], [address] [place] [address] Jordan Hanson MD [address] [place] [address] [place] [address] 06/22/2025 4:00 PM EST Office Visit [place] [facility] [address], [address] [place] [address] Elin Kelly MD [address] [place], [place] [phone] documented as of this encounter Visit Diagnoses Not on filedocumented in this encounter Additional Health Concerns Infection Onset Date Last Indicated Resolved Time MRSA Comment:Added from external infection. Source: [facility]. 11/21/2020 C. difficile 10/01/2024 10/01/2024 Assessment Noted Time PHQ-9 Depression Total Score: 22 025 10:58 AM EDT A fall risk assessment has been complete d for the patient 10/06/2024 2:45 PM EDT A Body Mass Index follow-up plan has been documented for the patient 12/04/2024 9:51 AM EDT documented as of this encounter Care Teams Nurse Case Management Relationship Specialty Start Date End Date Avelino Salas MD [address] [place] [address] PCP - General 10/28/20 documented as of this encounter
--- OUTSIDE RECORDS SUMMARY | 2025-01-19 13:30 | XMS_ITS | Encounter Summary ---
Author Organization [facility] Address [address] [place] [id number] Care Team Providers Care Honeycomb Blanket Maker Name Role Phone Avelino Salas MD Primary Care Provider [phone] Reason for Referral * Consultation (Routine) - Authorized Specialty Diagnoses / Procedures Referred By Contact Referred To Contact Gastroenterology / Hepatology Diagnoses Hepatomegaly Toshia Kline, AEROSPACE ENGINEER [address] [place] [address] Phone: tel: fax: Referral ID Status Reason Start Date Expiration Date Visits Requested Visits Authorized [id number] Authorized Specialty Services Required 11/20/2023 05/21/2025 1 1 Encounter Details Date Type Department Care Team (Latest Contact Info) Description 11/20/2023 Community [facility] [address] [place] [address] Toshia Kline, AEROSPACE ENGINEER [address] [place] [address] Hepatomegaly (Primary Dx) Social History Tobacco Use [...] Description 04/09/2025 4:00 PM EDT Office Visit [facility] [place] [address] [facility], [address] [place] [address] Jordan Hanson MD [address] [place] [address] 06/22/2025 4:00 PM EST Office Visit [place] [facility] [address], [address] [place] [address] Elin Kelly MD [address] [place] [address] Scheduled Referrals Name Type Priority Associated Diagnoses Order Schedule Ambulatory referral to Gastroenterology Outpatient Referral Routine Hepatomegaly Ordered: 11/20/2023 documented as of this encounter Visit Diagnoses Diagnosis Hepatomegaly- Primary documented in this encounter Additional Health Concerns Infection Onset Date Last Indicated Resolved Time MRSA Comment:Added from external infection. Source: [facility]. 11/21/2020 C. difficile 10/01/2024 10/01/2024 Assessment Noted Time A fall risk assessment has been complete d for the patient 07/12/2023 11:26 AM EST A Body Mass Index follow-up plan has been documented for the patient 07/30/2023 2:44 PM EST documented as of this encounter Care Teams Honeycomb Blanket Maker Relationship Specialty Start Date End Date Avelino Salas MD [address] [place] [address] PCP - General 10/28/20 documented as of this encounter
--- OUTSIDE RECORDS SUMMARY | 2025-01-19 13:30 | XMS_ITS | Clinical Summary ---
Author Organization [employer] ([place], [place], [place], [place]) Address [address] [place] [address] Care Team Providers Care Private Equity Analyst Name Role Phone Toshia Kline APRN Primary Care Provider + [phone] Allergies Active Allergy Reactions Criticality Noted Date [...] rxn details Tolerated oxycodone and morphine at [facility] in September 2020. Hydrocodone-Acetaminoph en Other [...] rxn details Tolerated oxycodone and morphine at [facility] in September 2020. Gets stiff and [...] with 5 different pathways approximately 2000 at [facility]- data deficit Coronary artery disease invo lving [place] coronary artery of [place] heart with unstable angina pectoris 10/11/2020 10/18/2023 Overview (10/18/2023): Remote heart catheterization at [facility] with no intervention-data deficit Remote heart catheterization with stent placement x2 in [address] [facility]-data deficit CCS class III-IV anginal equivalent/NYHA class II SZYMANSKI symptoms 11/17/2020: LHC at [facility] for chest pain, patent proximal and [...] Date Jose rded Speak language other than [place] at home Not on file 09/11/2023 Want [...] enlarged. The spleen is enlarged. Yessica Leslie HEATING PLANT SUPERINTENDENT IMG CT ORDERABLES Final Result from Last 3 Months or Most Recently Relevant to Health Maintenance Insurance MEDICAID [employer] MEDICARE PPO Care Teams Private Equity Analyst Relationship Specialty Start Date End Date Toshia Kline APRN [address] [address] PCP - General Nurse Practitioner 09/11/23
--- OUTSIDE RECORDS SUMMARY | 2025-01-19 13:30 | XMS_ITS | Encounter Summary ---
Author Organization Healthcare Address [address] [place] [address] Care Team Providers Care Senior Security Engineer Name Role Phone Avelino Salas MD Primary Care Provider [phone] Encounter Details Date Type Department Care Team (Late Contact Info) Description 12/04/2024 Orders Only [place] [facility] [address], [address] [place] [address] Elin Kelly MD [address] [place] [phone] Social History Tobacco Use Types Packs/Day Years [...] Description 04/09/2025 4:00 PM EDT Office Visit [facility] [place] [address] [facility] [facility], [address] [place] [address] Jordan Hanson MD [address] [place] [address] 06/22/2025 4:00 PM EST Office Visit [place] [facility] [address] [place] [address] Elin Kelly MD [address] [place] [address] documented as of this encounter [...] documented as of this encounter Care Teams Senior Security Engineer Relationship Specialty Start Date End Date Avelino Salas MD [address] [place] [address] PCP - General 10/28/20 documented as of this encounter
--- OUTSIDE RECORDS SUMMARY | 2025-01-19 13:30 | XMS_ITS | Referral Summary ---
Author Organization [employer] ([place], [place], [place], [place]) Address [address] [place] [address] Care Team Providers Care Community Health Representative Name Role Phone Toshia Kline APRN Primary Care Provider + [phone] Allergies Active Allergy Reactions Criticality Noted Date [...] rxn details Tolerated oxycodone and morphine at [facility] in September 2020. Hydrocodone-Acetaminoph en [...] rxn details Tolerated oxycodone and morphine at [facility] in September 2020. Gets stiff [...] with 5 different pathways approximately 2000 at [facility]- data deficit Coronary artery disease invo lving [place] coronary artery of [place] heart with unstable angina pectoris 10/11/2020 10/18/2023 Overview (10/18/2023): Remote heart catheterization at [facility] with no intervention-data deficit Remote heart catheterization with stent placement x2 in 2018 at [facility]-data deficit CCS class III-IV anginal equivalent/NYHA class II SZYMANSKI symptoms 11/17/2020: LHC at [facility] for chest pain, patent proximal and [...] Date Jose rded Speak language other than [place] at home Not on file 09/11/2023 Want [...] enlarged. The spleen is enlarged. Yessica Nelson DISTRICT FIRE MANAGEMENT OFFICER IM CT ORDERABLES Final Result from Last 3 Months or Most Recently Relevant to Health Maintenance Insurance MEDICAID [facility] MEDICARE PPO Care Teams Community Health Representative Relationship Specialty Start Date End Date Toshia Kline APRN [address] [place] [address] PCP - General Nurse Practitioner 09/11/23
--- OUTSIDE RECORDS SUMMARY | 2025-01-19 13:30 | XMS_ITS | Encounter Summary ---
Author Organization Healthcare Address [address] [place] [address] Care Team Providers Care Dry Chain Operator Name Role Phone Avelino Salas MD Primary Care Provider [phone] Encounter Details Date Type Department Care Team (Late Contact Info) Description 12/14/2024 Orders Only [place] [facility] [address], [address] [place] [address] Elin Kelly MD [address] [place] [phone] Social History Tobacco Use Types Packs/Day Years [...] Description 04/09/2025 4:00 PM EDT Office Visit [facility] [place] [address] [facility], [address] [place] [address] Jordan Hanson MD [address] [place] [address] 06/22/2025 4:00 PM EST Office Visit [place] [facility] [address], [address] [place] [address] Elin Kelly MD [address] [place] [address] documented as of this encounter [...] documented as of this encounter Care Teams Dry Chain Operator Relationship Specialty Start Date End Date Avelino Salas MD [address] [place] [address] PCP - General 10/28/20 documented as of this encounter
--- OUTSIDE RECORDS SUMMARY | 2025-01-19 13:30 | XMS_ITS | Encounter Summary ---
Author Organization [facility] Address [address] [place] [address] Care Team Providers Care Tar Boiler Name Role Phone Avelino Salas MD Primary Care Provider + [phone] Encounter Details Date Type Department Care Team (Late st Contact Info) Description 12/02/2024 Telephone [place] [facility] [address], [address] [place] [address] [place] [address] Social History Tobacco Use Types Packs/Day Years [...] Description 04/09/2025 4:00 PM EDT Office Visit [facility] [place] [address] [facility], [address] [place] [address] Jordan Hanson MD [address] [place] [address] 06/22/2025 4:00 PM EST Office Visit [place] [facility] [address], [address] [place] [address] Elin Kelly MD [address] [place] [address] documented as of this encounter [...] documented as of this encounter Care Teams Tar Boiler Relationship Specialty Start Date End Date Avelino Salas MD [address] [place] [address] PCP - General 10/28/20 documented as of this encounter
--- OUTSIDE RECORDS SUMMARY | 2025-01-19 13:30 | XMS_ITS | Clinical Summary ---
Author Organization [facility] Address [address] [place] [address] Care Team Providers Care Procedures Tech Name Role Phone Toshia Kline APRN Primary Care Provid er Allergies Active Allergy Reactions Criticality Noted Date Comments Aripiprazole Itching 08/24/2015 Citalopram Rash Low 03/02/2013 Hydrocodone Anaphylaxis High 11/21/2020 Ketorolac Other (See Comments) 10/09/2020 Pt states makes her feel like she is paralyzed . Losartan Unknown - Low Severity 11/06/2021 Olanzapine Rash Low 11/06/2021 Quetiapine Rash Low 11/06/2021 Sulfa Antibiotics Itching 03/02/2013 Tramadol Other (See Comments) 10/11/2020 Gets stiff and rigid per patient Medications ALPRAZolam (XANAX) 1 MG tablet Take 1 tablet by mouth 3 (Three) Times a Day As Needed for Anxiety. Active aspirin 81 MG chewable tablet Chew 1 tablet Daily. Active busPIRone (BUSPAR) 10 MG tablet Take 2 tablets by mouth 2 (two) times a day. Active clopidogrel (PLAVIX) 75 MG tablet Take 1 tablet by mouth Daily. Active cholecalciferol (VITAMIN D3) 25 MCG (1000 UT) tablet Take 2 tablets by mouth Daily. Active lamoTRIgine (LaMICtal) 100 MG tablet Take 1 tablet by mouth 2 (Two) Times a Day. Active magnesium oxide (MAGOX) 400 (241.3 Mg) MG tablet tablet Take 1 tablet by mouth 2 (Two) Times a Day. Active pantoprazole (PROTONIX) 40 MG EC tablet Take 1 tablet by mouth Daily. Active propranolol LA (INDERAL LA) 160 MG 24 hr capsule Take 1 capsule by mouth Daily. Active venlafaxine XR (EFFEXOR-XR) 150 MG 24 hr capsule Take 1 capsule by mouth Daily. Active lactobacillus acidophilus (RISAQUAD) capsule capsule Take 1 capsule by mouth Daily. 30 capsule 1 Active collagenase 250 UNIT/GM ointment Apply topically to the appropriate area as directed Daily. 90 g 1 1 Active Insulin Degludec (Tresiba) 100 UNIT/ML solution injection HOLD MEDICATION UNTIL APPETITE IMPROVED 1 Active linaclotide (LINZESS) 290 MCG capsule capsule Take 1 capsule by mouth Every Morning Before Breakfast. Active NON FORMULARY Take 1 tablet by mouth 4 (Four) Times a Day Before Meals & at Bedtime. RUTH, pt sts this is medication that she orders from [facility], not fda approved. helps stomach to digest food . Active ondansetron (ZOFRAN) 4 MG tablet Take 1 tablet by mouth Every 6 (Six) Hours As Needed for Nausea or Vomiting. 12 tablet 1 Active potassium chloride (K-DUR,KLOR-CON) 20 MEQ CR tablet Take 1 tablet by mouth Daily. 2 tabs daily 1 Active Jardiance 10 MG tablet tablet Take 1 tablet by mouth Daily. 1 Active dilTIAZem CD (CARDIZEM CD) 120 MG 24 hr capsule Take 1 capsule by mouth Daily. 2 Active hydrocortisone 2.5 % cream Apply 1 Application topically to the appropriate area as directed Daily. Patient unsure of dose. Active icosapent ethyl (VASCEPA) 1 g capsule capsule Take 2 g by mouth 2 (Two) Times a Day With Meals. 120 capsule 3 2 Active ranolazine (Ranexa) 500 MG 12 hr tablet Take 1 tablet by mouth 2 (Two) Times a Day. 60 tablet 11 3 Active Motegrity 2 MG tablet Take 1 tablet by mouth Daily. as directed Active glyburide (DIAbeta) 5 MG tablet Take 2 tablets by mouth Every 12 (Twelve) Hours. 4 Active levothyroxine (SYNTHROID, LEVOTHROID) 112 MCG tablet Take 1 tablet by mouth Daily. Active vitamin E 200 UNIT capsule Take 1 capsule by mouth Daily. Active pregabalin (LYRICA) 75 MG capsule Take 1 capsule by mouth 3 (Three) Times a Day. Active nystatin-triamci nolone (MYCOLOG) 210553-4.1 UNIT/GM-% ointmentIndicati ons:Vulvar lesion Apply 1 Application topically to the appropriate area as directed 2 (Two) Times a Day. 60 g 1 4 Active betamethasone dipropionate (DIPROSONE) 0.05 % creamIndications :Vulvar lesion Apply 1 Application topically to the appropriate area as directed 2 (Two) Times a Day. 45 g 3 4 Active rosuvastatin (CRESTOR) 20 MG tablet Take 1 tablet by mouth Every Night. 30 tablet 5 Active Active Problems Problem Noted Date Diagnosed Date Tinea corporis 01/08/2022 Condyloma acuminatum in female 01/08/2022 Severe malnutrition 04/10/2021 Sepsis secondary to UTI 04/08/2021 PVC (premature ventricular contraction) 11/18/19 21 Overview (11/17/2020): History of PVC ablation with 5 different pathways approximately 2000 at [facility]- data deficit S/P laparotomy with I&D abdo jeanette wall abscess, colostomy takedown, splenic flexure mobilization, transverse and descending colectomy and partial omentectomy with transverse colostomy 10/11/2020 10/11/2020 Essential hypertension 10/11/2020 Coronary artery disease invo lving cheesh-na coronary artery of cheesh-na heart with unstable angina pectoris 10/11/2020 Overview (11/17/2020): Remote heart catheterization at [facility] with no intervention-data deficit Remote heart catheterization with stent placement x2 in 2018 at [facility]-data deficit CCS class III-IV anginal equivalent/NYHA class II SZYMANSKI symptoms 11/17/2020: LHC at [facility] for chest pain, patent proximal and distal LAD stents with minimal 10% ISR, RCA mid 20-30% luminal irregularities, circumflex minimal 10% luminal irregularities, LVEDP 13 mmHg. LVEF 65 to 70%. Hyperlipidemia LDL goal <70 10/11/2020 Hypothyroidism on replacement 10/11/2020 Abdominal wall abscess/cellu litis inferior and lateral to old colostomy site from perforated diverticulum 10/08/2020 Anxiety Arthritis Diastolic CHF, chronic CKD (chronic kidney disease) stage 3, GFR 30-59 ml/min COPD (chronic obstructive pulmonary disease) Diabetes mellitus GERD (gastroesophageal reflux disease) Presence of colostomy Tobacco abuse Resolved Problems Problem Noted Date Diagnosed Date Resolved Date FLORENTIN (acute kidney injury) 04/09/2021 Lactic acidosis 11/20/2020 11/24/2020 Family History Medical History Relation Name Comments Heart disease Brother Irritable bowel syndrome Brother Cancer Father Unknown Heart attack Mother Heart disease Sister Irritable bowel syndrome Sister Breast cancer Neg Hx Colon cancer Neg Hx Ovarian cancer Neg Hx Uterine cancer Neg Hx Relation Name Status Comments Brother Alive Father Mother Sister Alive Social History Tobacco Use Types Packs/Day Years Used Date Smoking Tobacco: Every Day Cigarettes 1 16 Passive Smoke Exposure: Current Smokeless Tobacco: Never Tobacco Cessation:Ready to Q uit: Not Asked; Counseling Given: Not Answered Alcohol Use Standard Drinks/Week Comments Never 0 (1 standard drink = 0.6 oz pur e alcohol) AUDIT-C Answer Date Recorded Q1: How often do you have a drink containing alc ohol? Never 10/08/2020 Average Number of Drinks Not on file 021 Frequency of Binge Drinking Not on file 09/16 Comments No Sex and Gender Information Value Date Recorded Sex Assigned at Not on file Legal Sex Female 1:26 PM EDT Gender Identity Not on file Sexual Orientation Not on file Last Filed Vital Signs Vital Sign Reading Time Taken Comments Blood Pressure 116/70 08/11/2024 2:06 PM EST Pulse 75 08/06/2023 10:40 AM EST Temperature 39.4 C (103 F) 11/23/2021 11:15 AM EDT Respiratory Rate 18 06/01/2024 11:10 AM EST Oxygen Saturation 94% 08/06/2023 10:40 AM EST Inhaled Oxygen Concentration - - Weight 67.1 kg (148 lb) 08/11/2024 2:06 PM EST Height 149.9 cm (4' 11 ) 06/01/2024 11:10 AM EST Body Mass Index 29.89 06/01/2024 11:10 AM EST Plan of Treatment Health Maintenance Due Date Last Done Comments DIABETIC EYE EXAM 1974 DIABETIC FOOT EXAM 1974 URINE MICROALBUMIN-CREATININ E RATIO (uACR) 1974 MAMMOGRAM 2004 COLOGUARD 2009 COLON CANCER SCREENING 5 YEA R SIGMOIDOSCOPY 2009 COLONOSCOPY [address] CANCER SCREENING 2009 CT COLONOGRAPHY 2009 FECAL OCCULT BLOOD TEST 2009 FIT Testing (1 year) 2009 ZOSTER VACCINE (1 of 2) 2014 TDAP/TD VACCINES (2 - Td or Tdap) 12/06/2017 008 ANNUAL WELLNESS VISIT 09/13/2020 Pneumococcal Vaccine 50+ (2 of 2 - PCV) 03/17/2021 03/17/2020, 05/11/2019 LIPID PANEL 11/17/2021 11/17/2020, 10/10/2020 Annual Gynecologic Pelvic an d Breast Exam 11/07/2023 11/05/2022 COVID-19 Vaccine (1 - 2023-2 5 season) 2024 Hepatitis B (1 of 3 - Risk 3 -dose series) 2024 INFLUENZA VACCINE 03/17/2025 03/17/2020, , 03/20/2018, Additional history exists HEMOGLOBIN A1C 06/26/2025 12/24/2024, 0608/2020, 10/08/2020 PAP SMEAR 06/01/2027 06/01/2024, 10/16, 11/06/2021 HEPATITIS C SCREENING Completed 11/18/2020 Medical Devices Implanted Type Area Storeroom Keeper Device Identifier Shelf Expiration Date Model / Serial / Lot Stplr Lnr Cut Prox Thk 75mm Grn Tct75 - [id number] Implanted:Qty : 1 on 10/11/2020 by Margaret Ceron MD at [facility] Implant N/A: Abdomen [employer] J [employer] J 04/16/2024 [id number] / / [id number] Clip Ligat Vasc Horizon Ti /Charanjit Grn 6ct - [id number] Implanted:Qty : 1 on 10/11/2020 by Margaret Ceron MD at [facility] Implant N/A: Abdomen [employer] [id number] / / Clip Ligat Vasc Horizon Ti Cory 6ct - [id number] Implanted:Qty : 1 on 10/11/2020 by Margaret Ceron MD at [facility] Implant N/A: Abdomen [employer] [id number] / / Clip Ligat Vasc Horizon Ti Lg Orng 6ct - [id number] Implanted:Qty : 1 on 10/11/2020 by Margaret Ceron MD at [facility] Implant N/A: Abdomen [employer] [id number] / / Procedures Procedure Name Priority Date/Time Associated Diagnosis Comments LIQUID-BASED PAP SMEAR WITH HPV GENOTYPING REGARDLESS OF INTERPRETATION, [facility] (JORGE,COR,MAD) Routine 06/01/2024 12:13 PM EST Encounter for annual routine gynecological examination HEPATITIS C ANTIBODY STAT 11/18/2020 5:30 AM EDT Routine general medical examination at a health care facility [ICD-10-CM] HEMOGLOBIN A1C Routine 11/17/2020 3:42 AM EDT LIPID PANEL Routine 11/17/2020 3:42 AM EDT from Last 3 Months or Most Recently Relevant to Health Maintenance Results * LIQUID-BASED PAP SMEAR WITH HPV GENOTYPING REGARDLESS OF INTERPRETATION (JORGE,COR,MAD) (06/01/2024 12:13 PM EST) Pathologist [facility] Report [facility] [address] [place] [address] or [phone] Henry Reveles M.D., Clinical Partner PATIENT NAME [facility]. [id number] AGE SEX SSN CLIENT REF # [facility] 59 1965 F [id number] Malaika BAUTISTA REQUESTING Sincere [place]END[place] [address] CARRIE KIMBALL DATE COLLECTED DATE RECEIVED DATE REPORTED 06/01/2024 06/01/2024 06/04/2024 ThinPrep Pap with Cytyc Imaging DIAGNOSIS: Epithelial cell abnormality. (ASC-H) Atypical squamous cells of undetermined significance are present, cannot exclude a high grade lesion. Professional interpretation rendered by Henry Reveles M.D., CamiATraeP. at [facility], [facility], [address] [place] [address]. SPECIMEN ADEQUACY: SATISFACTORY FOR EVALUATION Transformation zone is present. SOURCE OF SPECIMEN: CERVICAL/ENDOCERVI KONSTANTIN SLIDES: 1 CLINICAL HISTORY: Encounter for annual routine gynecological examination HPV HR-HPV POOL: Positive The Aptima HPV assay is an in vitro nucleic acid amplification test for the qualitative detection of E6/E7 viral messenger RNA from 14 high risk types of HPV in cervical specimens. The high risk HPV types detected include: 16, 18, 31, 33, 35, 39, 45, 51, 52, 56, 58, 59, 66, 68 HPV Genotyping HPV 16: Negative HPV 18/45: Negative The Aptima HPV 16, 18/45 genotype assay is an in vitro nucleic acid amplification test for the qualitative detection of E6/E7 viral messenger RNA of human papillomavirus (HPV) types 16,18/45 in cervical specimens from women with Aptima HPV positive results. The Aptima HPV 16, 18/45 genotype assay can differentiate HPV 16 from HPV 18 and/or HPV 45, but does not differentiate between HPV 18 and HPV 45. SWEET DOUGH MIXER: EMMETT JOYNER(ASCP) REVIEWED, DIAGNOSED AND ELECTRONICALLY SIGNED BY: Henry Reveles M.D., F.C.A.P. CPT CODES: 21964, 81823, 11409, 10729 06/04/2024 11:44 AM EST [facility] ThinPrep Vial Cervix uteri structure / Unknown Collection / Unknown 06/01/2024 12:13 PM EST 06/01/2024 12:13 PM EST Carrie Kimball MD PATHOLOGY/CYTOLOGY ORDER NASRIN Final Result [facility]
[address] [place] [address], * Hepatitis C Antibody (11/18/2020 5:30 AM EDT) [facility] Hepatitis C Ab Non-Reacti ve Non-Reacti ve 11/18/2020 6:06 AM EDT [facility] Blood 11/18/2020 5:30 AM EDT 11/18/2020 5:37 AM EDT [facility] - 11/18/2020 6:06 AM EDT Results may be falsely decreased if patient taking Biotin. Rayna Bianchi APRN LAB BLOOD ORDERABLES Sil l Result Performing Organization Address City/[facility]/ZIP Co de Phone Number [facility]
[address] [place] [address], * (ABNORMAL) Hemoglobin A1c (11/17/2020 3:42 AM EDT) [facility] Hemoglobin A1C 6.60(H) 4.80 - 5.60 % 11/17/2020 4:17 AM EDT [facility] Blood Line / Unknown 11/17/2020 3: 42 AM EDT 11/17/2020 4:00 AM EDT [facility] - 11/17/2020 4:17 AM EDT Hemoglobin A1C Ranges: Increased Risk for Diabetes 5.7% to 6.4% Diabetes >= 6.5% Diabetic Goal < 7.0% Kasia Chaudhry PA-C LAB BLOOD ORDERABLES Final R esult [facility]
[address] [place] [address], * (ABNORMAL) Lipid Panel (11/17/2020 3:42 AM EDT) [facility] Total Cholesterol 108 0 - 200 mg/dL 11/17/2020 4:21 AM EDT [facility] Triglycerides 525(H) 0 - 150 mg/dL 11/17/2020 4:21 AM EDT [facility] HDL Cholesterol 16(L) 40 - 60 mg/dL 11/17/2020 4:21 AM EDT [facility] LDL Cholesterol 21 0 - 100 mg/dL 11/17/2020 4:21 AM EDT [facility] VLDL Cholesterol 71(H) 5 - 40 mg/dL 11/17/2020 4:21 AM EDT [facility] LDL/HDL Ratio -0.81 11/17/2020 4:21 AM EDT [facility] Blood Line / Unknown 11/17/2020 3: 42 AM EDT 11/17/2020 4:00 AM EDT [facility] - 11/17/2020 4:21 AM EDT Cholesterol Reference Ranges (U.S. Department of Health and Human Services ATP III Classifications) Desirable <200 mg/dL Borderline High 200-239 mg/dL High Risk >240 mg/dL Triglyceride Reference Ranges (U.S. Department of Health and Human Services ATP III Classifications) Normal <150 mg/dL Borderline High 150-199 mg/dL High 200-499 mg/dL Very High >500 mg/dL HDL Reference Ranges (U.S. Department of Health and Human Services ATP III Classifcations) Low <40 mg/dl (major risk factor for CHD) High >60 mg/dl ('negative' risk factor for CHD) LDL Reference Ranges (U.S. Department of Health and Human Services ATP III Classifcations) Optimal <100 mg/dL Near Optimal 100-129 mg/dL Borderline High 130-159 mg/dL High 160-189 mg/dL Very High >189 mg/dL Kasia Chaudhry PA-C LAB BLOOD ORDERABLES Final R esult [facility]
[address] [place] [address], from Last 3 Months or Most Recently Relevant to Health Maintenance Additional Health Concerns Infection Onset Date Last Indicated MRSA 11/21/2020 11/21/2020 Insurance [place]ID [place] [facility] MEDICARE ADVANTAGE PPO Advance Directives * CPR (Attempt to Resuscitate) (Latest Code Status on File) Date Activated Date Inactivated Comments 04/08/2021 2:09 AM 04/16/2021 3:56 PM Question Answer Comments Code Status (Patient has no pulse and is not breathing): CPR (Attempt to Resuscitate) Medical Interventions (Patie nt has pulse or is breathing): Full Level Of Support Discussed With: Patient * CPR (Attempt to Resuscitate) Date Activated Date Inactivated Comments 11/21/2020 12:44 AM 11/24/2020 4:00 PM Question Answer Comments Code Status (Patient has no pulse and is not breathing): CPR (Attempt to Resuscitate) Medical Interventions (Patie nt has pulse or is breathing): Full * CPR (Attempt to Resuscitate) Date Activated Date Inactivated Comments 11/16/2020 8:40 PM 11/18/2020 3:42 PM Question Answer Comments Code Status (Patient has no pulse and is not breathing): CPR (Attempt to Resuscitate) Medical Interventions (Patie nt has pulse or is breathing): Full Level Of Support Discussed With: Patient * CPR (Attempt to Resuscitate) Date Activated Date Inactivated Comments 10/11/2020 9:01 PM 10/19/2020 6:44 PM Question Answer Comments Code Status (Patient has no pulse and is not breathing): CPR (Attempt to Resuscitate) Medical Interventions (Patie nt has pulse or is breathing): Full * CPR (Attempt to Resuscitate) Date Activated Date Inactivated Comments 10/08/2020 6:25 PM 10/11/2020 9:01 PM Question Answer Comments Code Status (Patient has no pulse and is not breathing): CPR (Attempt to Resuscitate) Medical Interventions (Patie nt has pulse or is breathing): Full Level Of Support Discussed With: Patient Care Teams Procedures Tech Relationship Specialty Start Date End Date Toshia Kline APRN [facility] [place] [facility] [address] [facility] [place] [address] PCP - General Family Medicine 10/08/20
--- OUTSIDE RECORDS SUMMARY | 2025-01-19 13:30 | XMS_ITS | Encounter Summary ---
Author Organization Healthcare Address [address] [place] [address] Care Team Providers Care Pet Store Merchandiser Name Role Phone Avelino Salas MD Primary Care Provider + [phone] Encounter Details Date Type Department Care Team [...] Description 04/09/2025 4:00 PM EDT Office Visit [facility] [place] [address], [address] [place] [address] Jordan Hanson MD [address] [place] [address] 06/22/2025 4:00 PM EST Office Visit [facility] Medicine Specialties [address] [place] [address] Elin Kelly MD [address] [place] [phone] documented as of this encounter Visit Diagnoses [...] documented as of this encounter Care Teams Pet Store Merchandiser Relationship Specialty Start Date End Date Avelino Salas MD [address] [place] [address] PCP - General 10/28/20 documented as of this encounter
--- OUTSIDE RECORDS SUMMARY | 2025-01-19 13:30 | XMS_ITS | Encounter Summary ---
Author Organization [facility] Address [address] [place] [address] Care Team Providers Care Mandarin Speaking Nanny Name Role Phone Avelino Salas MD Primary Care Provider [phone] Reason for Referral * Consultation (Routine) - Closed Specialty Diagnoses / Procedures Referred By Contac t Referred To Contact Cardiology Diagnoses Atherosclerosis of pokagon coronary artery of pokagon heart without angina pectoris Toshia Kline FLATTENING PRESS OPERATOR [address] [id number] Phone: tel: fax: Referral ID Status Reason Start Date Expiration Date V isits Requested Visits Authorized [id number] Closed Specialty Services Required 07/10/2024 01/09/2026 1 1 Encounter Details Date Type Department Care Team (Latest Contact Info) Description 07/10/2024 Community [facility] [address] [place] [address] Toshia Kline, FLATTENING PRESS OPERATOR [address] [address] Atherosclerosis of pokagon coronary artery of pokagon heart without angina pectoris (Primary Dx) Social [...] Description 04/09/2025 4:00 PM EDT Office Visit [facility] [place] [address] [facility], [address] [place] [address] Jordan Hanson MD [address] [place] [address] 06/22/2025 4:00 PM EST Office [facility]ties [address] [place] [address] Elin Kelly MD [address] [place] [address] Scheduled Referrals Name Type Priority Associated Diagnoses Order Schedule Ambulatory referral to Cardiology Outpatient Referral Routine Atherosclerosis of pokagon coronary artery of pokagon heart without angina pectoris Ordered: 07/10/2024 documented as of this encounter Visit Diagnoses Diagnosis Atherosclerosis of pokagon coronary artery of pokagon heart without angina pectoris- Primary documented in this encounter Additional Health Concerns Infection Onset Date Last Indicated Resolved Time MRSA Comment:Added from external infection. [facility] 11/21/2020 C. difficile 10/01/2024 10/01/2024 Assessment Noted Time PHQ-9 Depression Total Score: 2 05/12/20 24 1:35 PM EST A fall risk assessment has been complete d for the patient 05/12/2024 1:37 PM EST A Body Mass Index follow-up plan has been documented for the patient 05/12/2024 3:21 PM EST documented as of this encounter Care Teams Mandarin Speaking Nanny Relationship Specialty Start Date End Date Avelino Salas MD [address] [place] [address] PCP - General 5/14/21 documented as of this encounter
--- OUTSIDE RECORDS SUMMARY | 2025-01-19 13:31 | XMS_ITS | Encounter Summary ---
Author Organization [employer] ([place], [place], [place], [place]) Address [address] [place] [address] Care Team Providers Care Occasional Caregiver Name Role Phone Toshia Kline KAYLIN Primary Care Provider Encounter Details Date Type Department Care Team (Late st Contact Info) Description 10/08/2023 Telephone [facility] Neurology - [address] [address] Yessica Nelson APRN [address] [facility] [address] [place] [address] Social History Tobacco Use Types [...] Date Jose rded Speak language other than [place] at home Not on file 09/11/2023 Want [...] on filedocumented in this encounter Care Teams Occasional Caregiver Relationship Specialty Start Date End Date Toshia Kline APRN [address] [place] [address] PCP - General Nurse Practitioner 09/11/23 documented as of this encounter
--- OUTSIDE RECORDS SUMMARY | 2025-01-19 13:31 | XMS_ITS | Clinical Summary ---
Author Organization [facility] Address [address] [place] [address] Care Team Providers Care Vest Front Presser Name Role Phone Avelino Salas MD Primary Care Provider + [phone] Allergies Active Allergy Reactions Criticality Noted Date [...] rxn details Tolerated oxycodone and morphine at [facility] in September 2020. Gets stiff and rigid [...] DIRECTED 025 2024 Discontinued(E ntered in Error) Active Problems Problem Noted Date Diagnosed Date [...] with 5 different pathways approximately 2000 at [facility]- data deficit Essential hypertension 10/11/2020 Hyperlipidemia LDL goal <70 10/11/2020 Hypothyroidism (acquired) 10/11/2020 Coronary artery disease invo lving [place] coronary artery of [place] heart with unstable angina pectoris 10/11/2020 Overview (10/01/2024): Remote heart catheterization at [facility] with no intervention-data deficit Remote heart catheterization with stent placement x2 [place] [address] [facility]-data deficit CCS class III-IV anginal equivalent/NYHA class II SZYMANSKI symptoms 11/17/2020: LHC at [facility] for chest pain, patent proximal and [...] Hospital Encounter [facility] Emergency Department [address] [place] [address] Veronika Mendez MD Myers, Kurt A, MD Altered mental status, unspecified altered mental status type (Primary Dx); Falls frequently; Physical debility; Other cirrhosis of liver (CMS/HCC); Hepatic encephalopathy (CMS/HCC); Polypharmacy Discharge Disposition: Home-Health Care [facility] [place] [place] 12/24/2024 Travel 12/14/2024 Orders Only [facility] [address], [facility] [place] [address] Elin Kelly MD 12/04/2024 Orders Only [facility] [address], [address] [place] [phone] Elin Kelly MD 12/02/2024 10:40 AM EDT Office Visit [facility] [address], [address] [place] [phone] Elin Kelly MD Other cirrhosis of liver (CMS/HCC) (Primary Dx) 12/02/2024 Results Follow-Up [facility] [address], [address] [place] [phone] Elin Kelly MD 12/02/2024 Telephone [facility] [address], [address] [place] [phone] Demetria Bowser 12/02/2024 Travel from Last 3 Months Immunizations Immunization [...] Description 04/09/2025 4:00 PM EDT Office Visit [facility] [place] [address] [facility], [address] [place] [address] Jordan Hanson MD [address] [place] [address] 06/22/2025 4:00 PM EST Office Visit [facility] [address], [address] [place] [phone] Elin Kelly MD [address] [place] [address] Health Maintenance Due Date Last Done Comments [facility]-HIV Screening 1965 [facility]Medicare Annual Wellness (AWV) 1965 [facility]-/Child/Adol SDOH Screenings 1965 [id number] Vaccine (#1) 1969 Diabetes: Dental Exam 1974 [...] of11 resultswithin the time period is included. POCT Glucose 224(H) 74 - 99 mg/dL [...] 12/25/2024 5:26 PM EDT [facility] Ceramics Machine Operator ID Elvira Streeter 12/25/2024 5:26 PM EDT [facility] Device ID [id number] 12/25/2024 5:26 PM EDT [facility] Specimen Type POC Capillary 12/25/2024 5:26 PM EDT [facility] Blood Capillary blood specimen / Unknown 12/25/2024 5:24 PM EDT 12/25/2024 5:26 PM EDT Prabhjot Mehta MD LAB POINT OF CARE TE ST DOCKED DEVICE UNSOLICITED RESULTS Final Result [facility] [address] [place] [id number] * (ABNORMAL) Protime-INR (12/25/2024 3:42 AM EDT) Only the most recent of3 resultswithin the time period is included. Prothrombin Time 15.2(H) 12.0 - 14.3 sec LAB COAGULATION METHOD 12/25/2024 4:12 AM EDT [facility] INR 1.2(H) 0.9 - 1.1 LAB COAGULATION METHOD 12/25/2024 4:12 AM EDT [facility] Blood Venous blood specimen / Unknown Venipuncture / Unknown 12/25/2024 3:42 AM EDT 12/25/2024 3:52 AM EDT Narrative [facility] - 12/25/2024 4:12 AM EDT OPTIMAL INR RANGES FOR PATIENT ON ORAL ANTICOAGULANT THERAPY Prevention of venous thromboembolism INR 2.0 to 3.0 In patients with heart disease: Atrial fibrillation INR 2.0 to 3.0 Valvular heart disease INR 2.0 to 3.0 Tissue heart valves INR 2.0 to 3.0 Mechanical prosthetic valves INR 2.5 to 3.5 Prevention of recurrent IN INR 2.5 to 3.5 us Prabhjot Mehta MD LAB BLOOD ORDERABLES Final Resul t [facility] [address] [place] [address] * (ABNORMAL) CBC and Differential (12/25/2024 3:42 AM EDT) Only the most recent of3 resultswithin the time period is included. WBC Count 7.49 3.70 - 10.30 10*3/uL LAB HEMATOLOGY METHOD 12/25/2024 3:56 AM EDT [facility] RBC Count 5.25(H) 3.90 - 5.20 10*6/uL LAB HEMATOLOGY METHOD 12/25/2024 3:56 AM EDT [facility] HGB 14.8 11.2 - 15.7 g/dL LAB HEMATOLOGY METHOD 12/25/2024 3:56 AM EDT [facility] HCT 42.1 34.0 - 45.0 % LAB HEMATOLOGY METHOD 12/25/2024 3:56 AM EDT [facility] Platelet Count 94(L) 155 - 369 10*3/uL LAB HEMATOLOGY METHOD 12/25/2024 3:56 AM EDT [facility] MCV 80 79 - 98 fL LAB HEMATOLOGY METHOD 12/25/2024 3:56 AM EDT [facility] MCH 28.2 26.0 - 32.0 pg LAB HEMATOLOGY METHOD 12/25/2024 3:56 AM EDT [facility] MCHC 35.2 30.7 - 35.5 g/dL LAB HEMATOLOGY METHOD 12/25/2024 3:56 AM EDT [facility] RDW 16.9(H) 11.5 - 14.5 % LAB HEMATOLOGY METHOD 12/25/2024 3:56 AM EDT [facility] MPV 9.5 8.8 - 12.5 fL LAB HEMATOLOGY METHOD 12/25/2024 3:56 AM EDT [facility] nRBC 0.0 <=0.0 per 100 WBCs LAB HEMATOLOGY METHOD 12/25/2024 3:56 AM EDT [facility] Differential Type Automated LAB HEMATOLOGY METHOD 12/25/2024 3:56 AM EDT [facility] Neutrophils % 44 % LAB HEMATOLOGY METHOD 12/25/2024 3:56 AM EDT [facility] Lymphocytes % 44 % LAB HEMATOLOGY METHOD 12/25/2024 3:56 AM EDT [facility] Monocytes % 8 % LAB HEMATOLOGY METHOD 12/25/2024 3:56 AM EDT [facility] Eosinophils % 3 % LAB HEMATOLOGY METHOD 12/25/2024 3:56 AM EDT [facility] Basophils % 1 % LAB HEMATOLOGY METHOD 12/25/2024 3:56 AM EDT [facility] Immature Granulocytes % 0 % LAB HEMATOLOGY METHOD 12/25/2024 3:56 AM EDT [facility] Neutrophils Absolute 3.28 1.60 - 6.10 10*3/uL LAB HEMATOLOGY METHOD 12/25/2024 3:56 AM EDT [facility] Lymphocytes Absolute 3.26 1.20 - 3.90 10*3/uL LAB HEMATOLOGY METHOD 12/25/2024 3:56 AM EDT [facility] Monocytes Absolute 0.59 0.30 - 0.90 10*3/uL LAB HEMATOLOGY METHOD 12/25/2024 3:56 AM EDT [facility] Eosinophils Absolute 0.24 0.00 - 0.50 10*3/uL LAB HEMATOLOGY METHOD 12/25/2024 3:56 AM EDT [facility] Basophils Absolute 0.10 0.00 - 0.10 10*3/uL LAB HEMATOLOGY METHOD 12/25/2024 3:56 AM EDT [facility] Immature Granulocytes Absolute 0.02 0.00 - 0.06 10*3/uL LAB HEMATOLOGY METHOD 12/25/2024 3:56 AM EDT [facility] Blood Venous blood specimen / Unknown Venipuncture / Unknown 12/25/2024 3:42 AM EDT 12/25/2024 3:52 AM EDT Narrative [facility] - 12/25/2024 3:56 AM EDT Therapeutic decision making should be based on absolute values, rather than percentages. us Prabhjot Mehta MD LAB BLOOD ORDERABLES Final Resul t [facility] [address] [place] [address] * Phosphorus, Plasma (12/25/2024 3:42 AM EDT) Phosphorus, Plasma 3.5 2.5 - 4.5 mg/dL 12/25/2024 4:47 AM EDT [facility] Blood Venous blood specimen / Unknown Venipuncture / Unknown 12/25/2024 3:42 AM EDT 12/25/2024 3:58 AM EDT us Prabhjot Mehta MD LAB BLOOD ORDERABLES Final Resul t [facility] [address] [place] [address] * Magnesium, Plasma (12/25/2024 3:42 AM EDT) Magnesium, Plasma 2.3 1.9 - 2.4 mg/dL 12/25/2024 4:47 AM EDT [facility] Blood Venous blood specimen / Unknown Venipuncture / Unknown 12/25/2024 3:42 AM EDT 12/25/2024 3:58 AM EDT us Prabhjot Mehta MD LAB BLOOD ORDERABLES Final Resul t Performing Organization Address [facility] de Phone Number [facility] [address] [place] [address] * (ABNORMAL) Hepatic Function Panel (12/25/2024 3:42 AM EDT) Conjugated Bilirubin, Plasma <0.2 <=0.3 mg/dL 12/25/2024 4:47 AM EDT [facility] Alkaline Phosphatase, Plasma 203(H) 46 - 142 U/L 12/25/2024 4:47 AM EDT [facility] Total Bilirubin, Plasma 0.3 0.2 - 1.1 mg/dL 12/25/2024 4:47 AM EDT [facility] Albumin, Plasma 4.1 3.5 - 5.2 g/dL 12/25/2024 4:47 AM EDT [facility] Total Protein 7.8 6.3 - 7.9 g/dL 12/25/2024 4:47 AM EDT [facility] ALT, Plasma 33 10 - 35 U/L 12/25/2024 4:47 AM EDT [facility] AST, Plasma 48(H) 10 - 35 U/L 12/25/2024 4:47 AM EDT [facility] Comment:Hemolyzed, result ma y be falsely increased. Blood Venous blood specimen / Unknown Venipuncture / Unknown 12/25/2024 3:42 AM EDT 12/25/2024 3:58 AM EDT us Prabhjot Mehta MD LAB BLOOD ORDERABLES Final Resul t Performing Organization Address [facility] Co de Phone Number [facility] [address] [place] [address] * (ABNORMAL) Basic Metabolic Panel, Plasma (12/25/2024 3:42 AM EDT) Glucose, Plasma 193(H) 74 - 99 mg/dL 12/25/2024 4:47 AM EDT [facility] BUN, Plasma 53(H) 8 - 23 mg/dL 12/25/2024 4:47 AM EDT [facility] Creatinine, Plasma 1.37(H) 0.60 - 1.10 mg/dL 12/25/2024 4:47 AM EDT [facility] BUN/Creatinine Ratio 39 12/25/2024 4:47 AM EDT [facility] Sodium, Plasma 136 136 - 145 mmol/L 12/25/2024 4:47 AM EDT [facility] Potassium, Plasma 3.6 3.6 - 4.9 mmol/L 12/25/2024 4:47 AM EDT [facility] Chloride, Plasma 105 97 - 107 mmol/L 12/25/2024 4:47 AM EDT [facility] CO2, Plasma 17(L) 22 - 29 mmol/L 12/25/2024 4:47 AM EDT [facility] Anion Gap 14 6 - 16 mmol/L 12/25/2024 4:47 AM EDT [facility] Total Calcium, Plasma 9.4 8.9 - 10.2 mg/dL 12/25/2024 4:47 AM EDT [facility] eGFRcr 44.3 mL/min/1.7 3m*2 12/25/2024 4:47 AM EDT [facility] Comment:Reported eGFRcr in m L/min/1.73m2 is based the CKD-EPI 2020 equation that does not use a race coefficient. Blood Venous blood specimen / Unknown Venipuncture / Unknown 12/25/2024 3:42 AM EDT 12/25/2024 3:58 AM EDT us Prabhjot Mehta MD LAB BLOOD ORDERABLES Final Resul t [facility] [address] [place] [address] * US Abdomen Focused Region Other (12/24/2024 [...] 12/24/2024 7:50 PM us Prabhjot Mehta MD [facility] US PROCEDURES Final Result * Vitamin D 25 Hydroxy (12/24/2024 2:33 PM EDT) Vitamin D 25 Hydroxy 34.6 20.0 - 80.0 ng/mL 12/24/2024 4:05 PM EDT [facility] Blood Venous blood specimen / Unknown Venipuncture / Unknown 12/24/2024 2:33 PM EDT 12/24/2024 2:37 PM EDT Narrative [facility] - 12/24/2024 4:05 PM EDT Testing performed on [employer], standardized against NIST SRM 2972. When testing [...] ORDERABLES Final Resul t Performing Organization Address [facility] Co de Phone Number [facility] [address] [place] [address] * (ABNORMAL) TSH (12/24/2024 2:33 PM EDT) Thyroid Stimulating Hormone, Plasma 0.31(L) 0.40 - 4.20 uIU/mL 12/24/2024 6:24 PM EDT [facility] Blood Venous blood specimen / Unknown Venipuncture / Unknown 12/24/2024 2:33 PM EDT 12/24/2024 2:37 PM EDT us Prabhjot Mehta MD LAB BLOOD ORDERABLES Final Resul t Performing Organization Address City/[facility]/ZIP Co de Phone Number [facility] [address] [place] [address] * T4, free (12/24/2024 2:33 PM EDT) Free T4, Plasma 1.5 0.8 - 1.7 ng/dL 12/24/2024 6:24 PM EDT [facility] Blood Venous blood specimen / Unknown Venipuncture / Unknown 12/24/2024 2:33 PM EDT 12/24/2024 2:37 PM EDT us Prabhjot Mehta MD LAB BLOOD ORDERABLES Final Resul t [facility] [address] [place] [address] * Folate, Serum (12/24/2024 2:33 PM EDT) Pathologist [facility] Folate, Serum 7.4 >4.6 ng/mL 12/24/2024 4:02 PM EDT [facility] Blood Venous blood specimen / Unknown Venipuncture / Unknown 12/24/2024 2:33 PM EDT 12/24/2024 2:37 PM EDT us Prabhjot Mehta MD LAB BLOOD ORDERABLES Final Resul t Performing Organization Address [facility]/[place] [address] * Vitamin B12, Serum (12/24/2024 2:33 PM EDT) Vitamin B12, Serum 599 210 - 1,033 pg/mL 12/24/2024 4:02 PM EDT [facility] Blood Venous blood specimen / Unknown Venipuncture / Unknown 12/24/2024 2:33 PM EDT 12/24/2024 2:37 PM EDT us Prabhjot Mehta MD LAB BLOOD ORDERABLES Final Resul t Performing Organization Address City/[facility]/[place] [address] * (ABNORMAL) Renal function panel (12/24/2024 2:33 PM EDT) Glucose, Plasma 296(H) 74 - 99 mg/dL 12/24/2024 2:56 PM EDT [facility] BUN, Plasma 64(H) 8 - 23 mg/dL 12/24/2024 2:56 PM EDT [facility] Creatinine, Plasma 1.60(H) 0.60 - 1.10 mg/dL 12/24/2024 2:56 PM EDT [facility] BUN/Creatinine Ratio 40 12/24/2024 2:56 PM EDT [facility] Sodium, Plasma 131(L) 136 - 145 mmol/L 12/24/2024 2:56 PM EDT [facility] Potassium, Plasma 3.6 3.6 - 4.9 mmol/L 12/24/2024 2:56 PM EDT [facility] Chloride, Plasma 104 97 - 107 mmol/L 12/24/2024 2:56 PM EDT [facility] CO2, Plasma 16(L) 22 - 29 mmol/L 12/24/2024 2:56 PM EDT [facility] Anion Gap 11 6 - 16 mmol/L 12/24/2024 2:56 PM EDT [facility] Total Calcium, Plasma 9.1 8.9 - 10.2 mg/dL 12/24/2024 2:56 PM EDT [facility] Phosphorus, Plasma 4.6(H) 2.5 - 4.5 mg/dL 12/24/2024 2:56 PM EDT [facility] Albumin, Plasma 4.4 3.5 - 5.2 g/dL 12/24/2024 2:56 PM EDT [facility] eGFRcr 36.8 mL/min/1.7 3m*2 12/24/2024 2:56 PM EDT [facility] Comment:Reported eGFRcr in m L/min/1.73m2 is based the CKD-EPI 2020 equation that does not use a race coefficient. Blood Venous blood specimen / Unknown Venipuncture / Unknown 12/24/2024 2:33 PM EDT 12/24/2024 2:37 PM EDT Prabhjot Mehta MD LAB BLOOD ORDERABLES Final Resul t Performing Organization Address City/[facility] Co de Phone Number [facility] [address] [place] [address] * SEND BARBARA MESSAGE (12/24/2024 8:34 AM EDT) Urine Urine specimen obtained by clean catch procedure / Unknown Non-blood Collection / Unknown 12/24/2024 8:34 AM EDT 12/24/2024 8:57 AM EDT Cedric Singh APRN LAB URINE ORDERABLES Fin al Result Performing Organization Address City/[facility] Co de Phone Number [facility] [address] [place] [address] * Urine Bishop Panel (12/24/2024 8:34 AM EDT) Extra Sent for Culture 12/24/2024 10:[address] [facility] Urine Urine specimen obtained by clean catch procedure / Unknown Non-blood Collection / Unknown 12/24/2024 8:34 AM EDT 12/24/2024 8:57 AM EDT Cedric Singh APRN LAB URINE ORDERABLES Fin al Result Performing Organization Address [facility] de Phone Number [facility] [address] [place] [address] * Urinalysis Microscopic Examination (12/24/2024 8:34 AM EDT) Urine Urine specimen obtained by clean catch procedure / Unknown Non-blood Collection / Unknown 12/24/2024 8:34 AM EDT 12/24/2024 8:36 AM EDT Cedric Singh APRN LAB URINE ORDERABLES Fin al Result Performing Organization Address [facility] Co de Phone Number [facility] [address] [place] [address] * (ABNORMAL) Urinalysis with reflex microscopic (Culture NOT Included) (12/24/2024 8:34 AM EDT) Color, Urine Yellow LAB URINALYSIS - AUTOMATED METHOD 12/24/2024 9:25 AM EDT [facility] Clarity, Urine Clear LAB URINALYSIS - AUTOMATED METHOD 12/24/2024 9:25 AM EDT [facility] Spec [place], Urine 1.024 1.005 - 1.030 LAB URINALYSIS - AUTOMATED METHOD 12/24/2024 9:25 AM EDT [facility] pH, Urine 6.0 5.0 - 8.0 LAB URINALYSIS - AUTOMATED METHOD 12/24/2024 9:25 AM EDT [facility] Protein, Urine 30(A) Negative mg/dL LAB URINALYSIS - AUTOMATED METHOD 12/24/2024 9:25 AM EDT [facility] Glucose, Urine 500(A) Negative mg/dL LAB URINALYSIS - AUTOMATED METHOD 12/24/2024 9:25 AM EDT [facility] Ketones, Urine Negative Negative mg/dL LAB URINALYSIS - AUTOMATED METHOD 12/24/2024 9:25 AM EDT [facility] Blood, Urine Negative Negative LAB URINALYSIS - AUTOMATED METHOD 12/24/2024 9:25 AM EDT [facility] Bilirubin, Urine Negative Negative LAB URINALYSIS - AUTOMATED METHOD 12/24/2024 9:25 AM EDT [facility] Urobilinogen, Urine 0.2 0.2 to 1.0 mg/dL LAB URINALYSIS - AUTOMATED METHOD 12/24/2024 9:25 AM EDT [facility] Leukocytes, Urine Trace(A) Negative LAB URINALYSIS - AUTOMATED METHOD 12/24/2024 9:25 AM EDT [facility] Nitrite, Urine Negative Negative LAB URINALYSIS - AUTOMATED METHOD 12/24/2024 9:25 AM EDT [facility] RBC, Urine 1 0 to 3 /HPF LAB URINALYSIS - AUTOMATED METHOD 12/24/2024 9:25 AM EDT [facility] Comment:This result was prev iously suppressed from the chart. WBC, Urine 11 - 20(A) 0 to 5 /HPF LAB URINALYSIS - AUTOMATED METHOD 12/24/2024 9:25 AM EDT [facility] Comment:This result was prev iously suppressed from the chart. Squamous Epithelial Cells 0 - 2 0 to 5 /HPF LAB URINALYSIS - AUTOMATED METHOD 12/24/2024 9:25 AM EDT [facility] Comment:This result was prev iously suppressed from the chart. Hyaline Casts 3 - 5 0 to 5 /LPF LAB URINALYSIS - AUTOMATED METHOD 12/24/2024 9:25 AM EDT [facility] Comment:This result was prev iously suppressed from the chart. Bacteria, Urine Negative Negative LAB URINALYSIS - AUTOMATED METHOD 12/24/2024 9:25 AM EDT [facility] Comment:This result was prev iously suppressed from the chart. Urine Urine specimen obtained by clean catch procedure / Unknown Non-blood Collection / Unknown 12/24/2024 8:34 AM EDT 12/24/2024 8:36 AM EDT Cedric Singh APRN LAB URINE ORDERABLES Fin al Result Performing Organization Address [facility] Co de Phone Number [facility] [address] [place] [address] * Urine Culture (12/24/2024 8:34 AM EDT) Culture <10,000 CFU/mL Mixed urogenital, fecal, or skin robbie present. 12/25/2024 9:24 AM EDT [facility] Urine Urine specimen obtained by clean catch procedure / Unknown Non-blood Collection / Unknown 12/24/2024 8:34 AM EDT 12/24/2024 8:57 AM EDT [facility] APRN LAB MICROBIOLOGY - GENER AL ORDERABLES Final Result Performing Organization Address City/[facility]/ZIP Co de Phone Number [facility] [address] [place] [address] * US Renal Complete (12/24/2024 8:20 AM [...] 12/24/2024 8:53 AM us Lokesh Arredondo APRN, [place] [facility] US PROCEDURES Final Result * (ABNORMAL) Troponin T, High Sensitivity, 2 Hour, Plasma (12/24/2024 5:34 AM EDT) Troponin T, High Sensitivity, 2 Hour 26(H) <14 ng/L 12/24/2024 6:11 AM EDT [facility] Troponin Delta 4 <10 ng/L 12/24/2024 6:11 AM EDT [facility] Troponin Delta Interpretation Not Significant 12/24/2024 6:11 AM EDT [facility] Comment:Not Significant. No acute change in troponin observed between the baseline and 2 hour samples. Blood Venous blood specimen / Unknown Venipuncture / Unknown 12/24/2024 5:34 AM EDT 12/24/2024 5:43 AM EDT Cedric Singh MANAGER LINE LAB BLOOD ORDERABLES Fin al Result Performing Organization Address City/State/[facility] Co de Phone Number [facility] [address] [place] [address] * XR Pelvis 1 or 2 Views [...] Pablo Willard MD on 12/24/2024 5:30 AM [facility]id[facility]ric[facility]issy Singh MANAGER LINE IMG XR PROCEDURES Final Result * XR [...] Pablo Willard MD on 12/24/2024 5:25 AM Cedric Singh APRN IMG XR PROCEDURES [...] Total DLP (Dose-Length Product): 1130.25 mGy.cm (accession [id number]), 1130.25 mGy.cm (accession [id number]). Please note: The reported value represents the total of one or more individual components during the CT acquisition on this date and at this time, and as such, the same value may appear in more than one CT report depending on the interpreting/reporting physicians. COMPARISON: None. FINDINGS: CT scan of cervical spine: Limited [id number]. No acute fracture or traumatic subluxation. Straightening [...] Total DLP (Dose-Length Product): 1130.25 mGy.cm (accession [id number]),1130.25 mGy.cm (accession [id number]). Please note: The reported valuerepresents the total of one or more individual components during the CTacquisition on this date and at this time, and as such, the same value mayappear in more than one CT report depending on the interpreting/reportingphysicians. COMPARISON: None. FINDINGS: CT scan of cervical spine: Limited [id number]. No acute fracture ortraumatic subluxation. Straightening of [...] MD on 12/24/2024 5:09 AM Cedric Singh MANAGER LINE [facility] CT PROCEDURES Edited Result - Final * [...] Total DLP (Dose-Length Product): 1130.25 mGy.cm (accession [id number]), 1130.25 mGy.cm (accession [id number]). Please note: The reported value represents the total of one or more individual components during the CT acquisition on this date and at this time, and as such, the same value may appear in more than one CT report depending on the interpreting/reporting physicians. COMPARISON: None. FINDINGS: CT scan of cervical spine: Limited [id number]. No acute fracture or traumatic subluxation. Straightening [...] Total DLP (Dose-Length Product): 1130.25 mGy.cm (accession [id number]),1130.25 mGy.cm (accession [id number]). Please note: The reported valuerepresents the total of one or more individual components during the CTacquisition on this date and at this time, and as such, the same value mayappear in more than one CT report depending on the interpreting/reportingphysicians. COMPARISON: None. FINDINGS: CT scan of cervical spine: Limited [id number]. No acute fracture ortraumatic subluxation. Straightening of [...] on 12/24/2024 5:09 AM Cedric Singh APRN IMG CT PROCEDURES Edited Result - Final * (ABNORMAL) Troponin now and 120 min (12/24/2024 3:31 AM EDT) Pathologist [facility] Troponin T, High Sensitivity, 0 Hour 30(H) <14 ng/L 12/24/2024 4:10 AM EDT [facility] Blood Venous blood specimen / Unknown Venipuncture / Unknown 12/24/2024 3:31 AM EDT 12/24/2024 3:41 AM EDT Cedric Singh APRN LAB BLOOD ORDERABLES Fin al Result [facility] [address] [place] [address] * (ABNORMAL) Hemoglobin A1c (12/24/2024 3:31 AM EDT) Pathologist [facility] Hemoglobin A1c 8.4(H) <5.7 % 12/24/2024 11:34 PM EDT [facility] Blood Venous blood specimen / Unknown Venipuncture / Unknown 12/24/2024 3:31 AM EDT 12/24/2024 3:36 AM EDT Narrative [facility] - 12/24/2024 11:34 PM EDT HA1C Interpretive Data: Diagnosis of Diabetes: Diabetic > or = 6.5% Pre-diabetic 5.7 to 6.4% Non-diabetic < or = 5.6% Glycemic Targets for Type I and Type II Diabetics: Non- Adults <7.0% Adults <6.0% Children and Adolescents <7.5% Source: [place] [employer]. Standards of medical care in diabetes,2017. Diabetes Care.2017:40 (suppl 1):S1-S135. us Prabhjot Mehta MD LAB BLOOD ORDERABLES Final Resul t [facility] [address] [place] [address] * (ABNORMAL) Blood gas panel, venous (12/24/2024 3:31 AM EDT) pH, Venous 7.26(L) 7.32 - 7.43 LAB HEMATOLOGY METHOD 12/24/2024 3:43 AM EDT [facility] pCO2, Venous 39 37 - 52 mmHg LAB HEMATOLOGY METHOD 12/24/2024 3:43 AM EDT [facility] pO2, Venous 64(H) 25 - 40 mmHg LAB HEMATOLOGY METHOD 12/24/2024 3:43 AM EDT [facility] SO2, Measured, Venous 91(H) 65 - 80 % LAB HEMATOLOGY METHOD 12/24/2024 3:43 AM EDT [facility] Base Excess, Venous -8.7(L) -2.0 - 3.0 mmol/L LAB HEMATOLOGY METHOD 12/24/2024 3:43 AM EDT [facility] Bicarbonate, Calculated, Venous 18(L) 22 - 26 mmol/L LAB HEMATOLOGY METHOD 12/24/2024 3:43 AM EDT [facility] Hematocrit, Whole Blood 47.7(H) 34.0 - 45.0 % LAB HEMATOLOGY METHOD 12/24/2024 3:43 AM EDT [facility] Sodium, Whole Blood 136 136 - 145 mmol/L LAB HEMATOLOGY METHOD 12/24/2024 3:43 AM EDT [facility] Potassium, Whole Blood 4.0 3.6 - 4.9 mmol/L LAB HEMATOLOGY METHOD 12/24/2024 3:43 AM EDT [facility] Chloride, Whole Blood 110(H) 97 - 107 mmol/L LAB HEMATOLOGY METHOD 12/24/2024 3:43 AM EDT [facility] Glucose, Whole Blood 147(H) 74 - 99 mg/dL LAB HEMATOLOGY METHOD 12/24/2024 3:43 AM EDT [facility] Lactate, Venous, Whole Blood 1.0 0.5 - 2.2 mmol/L LAB HEMATOLOGY METHOD 12/24/2024 3:43 AM EDT [facility] Ionized Calcium, Whole Blood 5.1 4.6 - 5.1 mg/dL LAB HEMATOLOGY METHOD 12/24/2024 3:43 AM EDT [facility] Blood Venous blood specimen / Unknown Venipuncture / Unknown 12/24/2024 3:31 AM EDT 12/24/2024 3:42 AM EDT Cedric Singh APRN LAB BLOOD ORDERABLES Fin al Result [facility] [address] [place] [address] * Ammonia (12/24/2024 3:31 AM EDT) Ammonia 46 11 - 51 umol/L 12/24/2024 4:16 AM EDT [facility] Blood Venous blood specimen / Unknown Venipuncture / Unknown 12/24/2024 3:31 AM EDT 12/24/2024 3:41 AM EDT [facility] APRN LAB BLOOD ORDERABLES Fin al Result Performing Organization Address City/[facility]/ZIP Co de Phone Number [facility] [address] [place] [address] * (ABNORMAL) CMP (12/24/2024 3:31 AM EDT) Only the most recent of2 resultswithin the time period is included. Glucose, Plasma 146(H) 74 - 99 mg/dL 12/24/2024 4:10 AM EDT [facility] BUN, Plasma 70(H) 8 - 23 mg/dL 12/24/2024 4:10 AM EDT [facility] Creatinine, Plasma 1.73(H) 0.60 - 1.10 mg/dL 12/24/2024 4:10 AM EDT [facility] BUN/Creatinine Ratio 40 12/24/2024 4:10 AM EDT [facility] Sodium, Plasma 135(L) 136 - 145 mmol/L 12/24/2024 4:10 AM EDT [facility] Potassium, Plasma 4.1 3.6 - 4.9 mmol/L 12/24/2024 4:10 AM EDT [facility] Chloride, Plasma 104 97 - 107 mmol/L 12/24/2024 4:10 AM EDT [facility] CO2, Plasma 16(L) 22 - 29 mmol/L 12/24/2024 4:10 AM EDT [facility] Anion Gap 15 6 - 16 mmol/L 12/24/2024 4:10 AM EDT [facility] Total Calcium, Plasma 9.8 8.9 - 10.2 mg/dL 12/24/2024 4:10 AM EDT [facility] Total Protein 8.6(H) 6.3 - 7.9 g/dL 12/24/2024 4:10 AM EDT [facility] Albumin, Plasma 4.7 3.5 - 5.2 g/dL 12/24/2024 4:10 AM EDT [facility] AST, Plasma 38(H) 10 - 35 U/L 12/24/2024 4:10 AM EDT [facility] ALT, Plasma 32 10 - 35 U/L 12/24/2024 4:10 AM EDT [facility] Alkaline Phosphatase, Plasma 184(H) 46 - 142 U/L 12/24/2024 4:10 AM EDT [facility] Total Bilirubin, Plasma 0.4 0.2 - 1.1 mg/dL 12/24/2024 4:10 AM EDT [facility] eGFRcr 33.5 mL/min/1.7 3m*2 12/24/2024 4:10 AM EDT [facility] Comment:Reported eGFRcr in m L/min/1.73m2 is based the CKD-EPI 2020 equation that does not use a race coefficient. Blood Venous blood specimen / Unknown Venipuncture / Unknown 12/24/2024 3:31 AM EDT 12/24/2024 3:41 AM EDT Cedric Singh APRN LAB BLOOD ORDERABLES Fin al Result [facility] [address] [place] [address] * EKG now - STAT (adult) (12/24/2024 3:16 AM EDT) EKG DIAGNOSIS CLASS Abnormal MUSE ECG Ventricular Rate 61 BPM MUSE ECG Atrial Rate 61 BPM MUSE ECG NM Interval 138 ms MUSE ECG QRSD Interval 98 ms MUSE ECG QT Interval 408 ms MUSE ECG QTC Interval 410 ms MUSE ECG P Middlebranch 62 degrees MUSE ECG R Middlebranch 18 degrees MUSE ECG T Wave Middlebranch 106 degrees MUSE ECG Diagnosis Normal sinus rhythm MUSE ECG Diagnosis Possible Left atrial enlargement MUSE ECG Diagnosis Incomplete right bundle branch block MUSE ECG Diagnosis ST & T wave abnormality, consider lateral ischemia MUSE ECG Diagnosis Pulmonary disease pattern MUSE ECG Diagnosis Abnormal ECG MUSE ECG Diagnosis MUSE ECG Diagnosis Confirmed by Javed Zavaleta ([id number]) on 12/24/2024 11:34:46 AM MUSE ECG 12/24/2024 3:16 AM EDT 12/24/2024 11:34 AM EDT Cedric Singh MANAGER LINE ECG ORDERABLES Final Re sult MUSE ECG from Last 3 Months Additional Health Concerns Infection Onset Date Last Indicated MRSA Comment:Added from external infection. Source: [facility]. 11/21/2020 C. difficile 10/01/2024 10/01/2024 Insurance [phone] (Work) [address] [place] [address] [place] Advance Directives * Full Code (Latest Code Status on File) Date Activated Date Inactivated Comments 12/24/2024 7:04 AM 12/25/2024 9:20 PM Question Answer Comments I have reviewed the capacity from the link above and, if needed, have updated to appropriate status: Yes Care Teams Vest Front Presser Relationship Specialty Start Date End Date Avelino Salas MD [address] [place] [id number] PCP - General 10/28/20
--- OUTSIDE RECORDS SUMMARY | 2025-01-19 13:31 | XMS_ITS | Encounter Summary ---
Author Organization Healthcare Address [address] [place] [address] Care Team Providers Care Supervisor Estimator And Drafter Name Role Phone Avelino Salas MD Primary Care Provider + [phone] Encounter Details Date Type Department Care Team [...] Description 04/09/2025 4:00 PM EDT Office Visit [facility] [place] [address] [facility], [address] [place] [address] Jordan Hanson MD [address] [place] [address] 06/22/2025 4:00 PM EST [facility] [address] [place] [address] Elin Kelly MD [address] [place] [address] documented as of this encounter Visit Diagnoses Not on filedocumented in this encounter Additional Health Concerns Infection Onset Date Last Indicated Resolved Time MRSA Comment:Added from external infection. Source: [facility]. 11/21/2020 C. difficile 10/01/2024 10/01/2024 Assessment Noted Time PHQ-9 Depression Total Score: 22 025 10:58 AM EDT A fall risk assessment has been complete d for the patient 10/06/2024 2:45 PM EDT A Body Mass Index follow-up plan has been documented for the patient 12/25/2024 6:56 PM EDT documented as of this encounter Care Teams Supervisor Estimator And Drafter Relationship Specialty Start Date End Date Avelino Salas MD [address] [place] [address] PCP - General 10/28/20 documented as of this encounter
--- OUTSIDE RECORDS SUMMARY | 2025-01-19 13:31 | XMS_ITS | Encounter Summary ---
[facility] Address [address] [place] [address] Care Team Providers Care Mobile Home Set Up Person Name Role Phone Toshia Kline APRN Primary Care Provid er Reason for Visit * Reason Comments Med Refill Encounter Details Date Type Department Care Team (Late st Contact Info) Description 04/04/2024 Refill [facility] [address] [address] Michael Soto MD [address] [place] [address] Vulvar lesion Social History Tobacco Use Types Packs/Day Years Used Date Smoking Tobacco: Every Day Cigarettes 1 16 Passive Smoke Exposure: Current Smokeless Tobacco: Never Alcohol Use Standard Drinks/Week Comments Never 0 [...] as of this encounter Visit Diagnoses Diagnosis Vulvar lesion Other specified noninflammatory disorder of vulva and perineum documented in this encounter Additional Health Concerns Infection Onset Date Last Indicated Resolved Time MRSA 11/21/2020 11/21/2020 documented as of this encounter Care Teams Mobile Home Set Up Person Relationship Specialty Start Date End Date Toshia Kline APRN [address] [place] [facility] [address] [facility] [address] [place] [address] PCP - General Family Medicine 10/08/20 documented as of this encounter
--- OUTSIDE RECORDS SUMMARY | 2025-01-19 13:31 | XMS_ITS | Encounter Summary ---
Author Organization [employer] ([place], [place], [place], [place]) Address [address] [place] [address] Care Team Providers Care Woodwinds Teacher Name Role Phone Toshia Kline APRN Primary Care Provider [phone] Reason for Referral * CAT Scan (Routine) - Closed Specialty Diagnoses / Procedures Referred By Contcaroline t Referred To Contact Radiology Diagnoses Cigarette smoker Procedures CT Lung Screening Initial Yessica Nelson APRN [address] [place] [address] Phone: tel: [facility] [address] [place] [address] Phone: tel: fax: Referral ID Status Reason Start Date Expiration Date Visits Re quested Visits Authorized [id number] Closed 10/07/2023 10/06/2024 1 1 Encounter Details Date Type Department Care Team (Late st Contact Info) Description 10/07/2023 Outside Orders [facility] [place] [address] [place] [id number] Yessica Nelson APRN [address] [facility] [address] [place] [address] Cigarette smoker (Primary Dx) Social [...] Date Jose rded Speak language other than [place] at home Not on file 09/11/2023 Want [...] disorder documented in this encounter Care Teams Woodwinds Teacher Relationship Specialty Start Date End Date Toshia Kline APRN [address] [facility] [address] [place] [address] PCP - General Nurse Practitioner 09/11/23 documented as of this encounter
[2025-01-19 13:48] LABS: Hematocrit 38.3 % (37.0-47.0); Hemoglobin 12.7 g/dL (12.2-16.2); Immature Granulocytes % 1.5 %; Mean Corpuscular HGB Conc 33.2 g/dL (31.8-35.4); Mean Corpuscular Hemoglobin 28.9 pg (27.0-31.2); Mean Corpuscular Volume 87.0 fl (81-99); Nucleated Red Blood Cells % 0 %; Platelet Count 73 K/mm3 (142-424); Red Blood Count 4.40 M/mm3 (4.20-5.40); Red Cell Distribution Width-SD 56.4 fL; White Blood Count 7.2 K/mm3 (4.8-10.8)
[2025-01-19 14:02] LABS: Ammonia < 9 umol/L (9-30)
[2025-01-19 16:09] LABS: Albumin Level 2.7 g/dl (3.5-5.0); Chloride 102 mmol/L (98-107); Potassium 3.5 mmoL/L (3.5-5.1); Sodium 133 mmol/L (136-145)
[2025-01-19 16:12] LABS: Alanine Aminotransferase 26 U/L (12-78); Albumin/Globulin Ratio 0.8 (1.1-1.8); Alkaline Phosphatase 202 U/L (38-126); Anion Gap 7.5 mEq/L (5-15); Aspartate Amino Transferase 43 U/L (14-36); Bilirubin,Total 0.2 mg/dl (0.2-1.3); Blood Urea Nitrogen 25 mg/dl (7-17); Carbon Dioxide 27 mmol/L (22.0-30.0); Creatinine,Serum 0.90 mg/dl (0.52-1.04); Estimated Glomerular Filt Rate 64 ml/min (>60); GFR (African American) 77 ML/MIN (>60); Globulin 3.2 g/dL (1.3-3.2); Total Protein,Serum 5.9 g/dl (6.3-8.2)
[2025-01-19 16:13] LABS: Calcium 8.1 mg/dl (8.4-10.2); Glucose 226 mg/dl (74-100)
== END 2025-01-19 23:59 | disposition home or self-care (01) ==
LOC: LAB 13:27
PROVIDERS: PCP Nurse Practitioner Family; Visit Provider Nurse Practitioner Family
DX: N18.31 Chronic kidney disease, stage 3a (principal); K74.60 Unspecified cirrhosis of liver
CPT/HCPCS: 36415; 80053; 82140; 85025

== ENCOUNTER 2025-02-02 12:43 | Outpatient (RCR) | payer MEDICARE, MEDICAID, SELFPAY ==
--- NOTE | 2025-02-03 08:19 | HMH.PTOPEV ---
PT Outpatient Evaluation Rehab PT Outpatient Evaluation Start: 02/02/25 14:48 Freq: Status: Active Protocol: Document 02/02/25 14:48 REINA (Rec: 02/02/25 15:51 REINA [id number]) E-signed By Corina Oh, PT Outpatient Therapy Subjective History Subjective History This is an initial PT evaluation for 59 y/o female, Dorota Flor, who presents to PT with referral for impaired balance and left ankle pain. Pt reports she fell 3 weeks ago when she was putting a trash can in her car. Pt fell backwards. Pt immediately had difficulty walking and ended up at for four days (d/ t poor liver function). Pt reports her PCP referred her to PT because they believe she has a ligament injury. Pt reports her ankle hurts when ambulating and driving (pt drives a standard). Pt reports she is driving despite PCP's recommendation to not drive. Pt lives alone and reports multiple falls. Pt denies performing rest/ice/elevation. Pt reports her swelling has gone down but the pain is about the same. Pt's goal for PT is to get rid of the pain so she can walk. PMH: Cirrhosis, diabetes, colostomy bag, heart attack, anxiety. New diagnosis of No cancer in past 12 months? Chief Complaint Pain,Stiff Symptom Type Ache,Sharp Symptoms Relieved By Rest/Positioning Symptoms Aggravated Standing,Physical Activity,Walking By Current Functional Standing,Recreation Activity,Walking,Stairs,Balance Limitations Symptom Description Intermittent Level of pain today 5 (0-10) Pain scale - at its 0 best (0-10) Pain scale - at its 7 worst (0-10) Ankle/Foot Eval Gait Observation General Gait Pattern Antalgic Gait Observation Assistive Device Ambulation Assistive None Device Palpation Tenderness left Ankle/Foot Palpation Tenderness Findings Ankle/Foot Palpation TTP 2/4 lateral foot, dorsal 4th & 5th MT, and over Overall Comment ATFL ATF TTP positive CF TTP positive Deltoid ligament TTP negative ROM Ankle/Foot 10, painful Dorsiflexion w/Knee Flexed Active Range of Motion (degrees) Ankle/Foot Plantar 30, painful Flexion Active Range of Motion (degrees) Ankle/Foot Eversion 15, painful Active Range of Motion (degrees) Ankle/Foot Inversion 20, painful Active Range of Motion (degrees) Ankle/Foot ROM Pain Limitations MMT Ankle Dorsiflexion 3+ Fair+ Strength Grade Ankle Plantarflexion 3+ Fair+ Strength Grade Foot Eversion 3+ Fair+ Strength Grade Foot Inversion 3+ Fair+ Strength Grade Special Tests Ankle Anterior Positive Left Drawer Test Ankle Eversion Test Positive Left Talar Tilt Test Positive Left Ankle Inversion ( Positive Left supination) Test Ankle Posterior Positive Left Drawer Test Lower Extremity Functional Index Activities Today, do you or would you have any difficulty at all with: a.Any of your usual Moderate difficulty work, housework or school activities b. Your usual Extreme difficulty or unable to perform activity hobbies, recreational or sporting activities c. Getting into or Moderate difficulty out of the [place] d. Walking between Moderate difficulty rooms e. Putting on your A little bit of difficulty shoes or socks f. Squatting Quite a bit of difficulty g. Lifting an object Moderate difficulty , like a bag of groceries from the floor h. Performing light A little bit of difficulty activities around your home i. Performing heavy Extreme difficulty or unable to perform activity activities around your home j. Getting into or Moderate difficulty out of a car k. Walking 2 blocks Extreme difficulty or unable to perform activity l. Walking a mile Extreme difficulty or unable to perform activity m. Going up or down Quite a bit of difficulty 10 stairs (about 1 flight of stairs) n. Standing for 1 Extreme difficulty or unable to perform activity hour o. Sitting for 1 A little bit of difficulty hour p. Running on even Extreme difficulty or unable to perform activity ground q. Running on uneven Extreme difficulty or unable to perform activity ground r. Making sharp Extreme difficulty or unable to perform activity turns while running fast s. Hopping Extreme difficulty or unable to perform activity t. Rolling over in No difficulty bed LEFI Score Lower Extremity 25 Functional Index Score Miscellaneous Dx PT Eval Objective Objective Observation: No discoloration or bruising around the foot or ankle. Minimal-no swelling noted in the ankle. Outpatient Therapy Assessment Impairments Problems/ Palpation Tenderness,Impaired Range of Motion,Impaired Impairmments Strength,Impaired Endurance,Impaired Transfers,Impaired Gait Pattern,Impaired Walking,Impaired Standing, Impaired Stair Climbing,Impaired Incline Stepping, Impaired Squatting,Impaired Bending,Impaired Recreational Activities,Subjective C/O Pain Prognosis Rehab Potential Good Comment Pt with impaired ankle strength, AROM, and subjective reports of pain. Pt sensitive to all ankle special tests performed. Pt TTP lateral foot, dorsal 4-5 MTP, and ATFL. PT educated pt to use ice to control pain. Recommending pt return to PCP for further imaging if pain remains severe with WBing. PT provided pt with HEP program targeting ankle ROM and ankle strengthening. Pt verbalized understanding. Clinical Impression Consistent with Yes Diagnosis PT Patient Goals PT Patient Goals PT Short Term In 4 weeks, pt will: Patient Goals 1) Verbalize compliance with home exercise program to improve self-maintenance of symptoms. 2) Verbalize 48-hour pain average (worst/best/current) of 3/10 3) Will improve ankle strength by 1/5 MMT grade to improve daily functioning. 4) Tolerate one 10 min moderate intensity endurance task (ex: bike) 5) Improve LEFS to 35 points to decrease disability from ankle pain and improve QOL. 6) Verbalize feeling at least 45% improved in symptoms since initial PT evaluation. PT Skilled Nursing Patient In 8 weeks, pt will: Goals 1) Verbalize compliance with home exercise program to improve self-maintenance of symptoms. 2) Verbalize 48-hour pain average (worst/best/current) of 1/10 3) Will improve ankle strength to 5/5 MMT grade to improve daily functioning. 4) Will stand tandem without LOB for 10 seconds 5) Improve LEFS to 40 points to decrease disability from ankle pain and improve QOL. 6) Verbalize feeling at least 75% improved in symptoms since initial PT evaluation. Outpatient Therapy Plan of Care Treatment Plan May Include Therapeutic Exercise Yes Including Home Exercise Program Manual Therapy Yes Techniques Neuromuscular Re- Yes education Therapeutic Yes Activities to Return to Previous Functional/Work Level Gait Training Yes ADL/Self Care Yes Education Thermal Modalities Yes Electrical Yes Stimulation Ultrasound/ Yes Phonophoresis Iontophoresis Yes Orthotics/Bracing/ Yes Splinting Vasopneumatic Yes Compression Pump Eval/Re-Eval Yes Frequency Times per week 2x Duration Number of Weeks 6-8 weeks Addendums This patient is a No candidate for social or vocational rehab ? Patient/Guardian Yes verbally acknowledges understanding of treatment program and consents to further treatment? Patient/Guardian Yes verbally acknowledges understanding of diagnosis, prognosis and goals for treatment? Eval Complexity PT Charges 54314 - Moderate Complexity Shoulder/Elbow Eval Shoulder Objective Measurements Elbow Objective Measurements PHYSICIAN CERTIFICATION: I certify the specified therapy services for Dorota lFor are required, authorized, and reviewed every 30 days.
== END 2025-02-02 23:59 | disposition home or self-care (01) ==
LOC: PT 12:43
PROVIDERS: PCP Nurse Practitioner Family; Visit Provider Nurse Practitioner Family
DX: M25.572 Pain in left ankle and joints of left foot (principal); G89.29 Other chronic pain; R26.89 Other abnormalities of gait and mobility
CPT/HCPCS: 97162

== ENCOUNTER 2025-03-24 10:42 | Outpatient (CLI) | payer MEDICARE, MEDICAID, SELFPAY ==
--- NOTE | 2025-03-24 10:49 | US_ITS ---
FINAL REPORT TECHNIQUE: Sonographic images of the right upper quadrant were obtained. CLINICAL HISTORY: OTHER CIRRHOSIS OF THE LIVER FINDINGS: PANCREAS: Unremarkable. LIVER: Homogeneous. No focal hepatic lesion. No intrahepatic biliary ductal dilatation. GALLBLADDER: Partially contracted. No gallstones. No gallbladder wall thickening or pericholecystic fluid. COMMON DUCT: 5 mm. Normal for age. RIGHT KIDNEY: The right kidney measures 11.2 cm. There is no hydronephrosis, mass, or stone. FREE FLUID: None. IMPRESSION: Unremarkable ultrasound of the right upper quadrant. Reviewed, Interpreted and Dictated by Tyra Domignuez MD Transcribed by Valery Hester Authenticated and [facility]
== END 2025-03-24 23:59 | disposition home or self-care (01) ==
LOC: RAD 10:43
PROVIDERS: PCP Nurse Practitioner Family; Visit Provider Internal Medicine
DX: K74.69 Other cirrhosis of liver (principal)
CPT/HCPCS: 76705